=== PATIENT | male | born 1935 | race Caucasian/White ===

== ENCOUNTER → 2019-12-28 09:43 | Outpatient (BNVA) | payer MEDICARE, OTHER, SELFPAY | PROVIDERS: PCP Internal Medicine; Visit Provider Internal Medicine | DX: I48.0 Paroxysmal atrial fibrillation (principal); Z51.81 Encounter for therapeutic drug level monitoring; Z79.01 Long term (current) use of anticoagulants | CPT/HCPCS: 85610 ==

== ENCOUNTER → 2020-01-25 09:38 | Outpatient (BNVA) | payer MEDICARE, OTHER, SELFPAY | PROVIDERS: PCP Internal Medicine; Visit Provider Internal Medicine | DX: I48.0 Paroxysmal atrial fibrillation (principal); Z51.81 Encounter for therapeutic drug level monitoring; Z79.01 Long term (current) use of anticoagulants | CPT/HCPCS: 85610; 99211 ==

== ENCOUNTER → 2020-02-22 09:23 | Outpatient (BNVA) | payer MEDICARE, OTHER, SELFPAY | PROVIDERS: PCP Internal Medicine; Visit Provider Internal Medicine | DX: I48.0 Paroxysmal atrial fibrillation (principal); Z51.81 Encounter for therapeutic drug level monitoring; Z79.01 Long term (current) use of anticoagulants | CPT/HCPCS: 85610; 99211 ==

== ENCOUNTER 2020-03-15 11:47 | Outpatient (REF) | payer MEDICARE, OTHER, SELFPAY ==
[2020-03-15 12:39] LABS: MANUAL DIFF FLAG NO
[2020-03-15 12:41] LABS: Basophils Percent Auto 0.4 % (0-2); Eosinophils Absolute Auto 0.3 X10*3/uL (0.0-0.4); Eosinophils Percent Auto 3.1 % (0-4); Hematocrit 37.7 % (42-52); Hemoglobin 12.3 g/dl (14.0-18.0); Imm Gran Abs Auto 0.03 X10*3/uL (0.00-0.03); Imm Gran Pct Auto 0.3 % (0.0-0.4); Lymphocytes Absolute Auto 2.4 X10*3/uL (1.2-4.9); Lymphocytes Percent Auto 26.5 % (20-40); Mean Corpuscular HGB Conc 32.6 g/dl (31.0-36.0); Mean Corpuscular Hemoglobin 29.4 pg (27.0-33.0); Mean Corpuscular Volume 90.2 fL (80-98); Mean Platelet Volume 10.1 fL (9.4-12.4); Monocytes Absolute Auto 0.9 X10*3/uL (0.1-1.2); Monocytes Percent Auto 9.9 % (2-11); Neutrophils Absolute Auto 5.5 X10*3/uL (2.0-8.3); Neutrophils Percent Auto 59.8 % (45-73); Platelet Count 292 X10*3/uL (160-400); Red Blood Count 4.18 X10*6/uL (4.60-5.80); White Blood Count 9.2 X10*3/uL (4.8-10.8)
[2020-03-15 13:15] LABS: Alanine Aminotransferase 25 U/L (0-40); Albumin Level 3.5 g/dL (3.5-5.0); Alkaline Phosphatase 61 U/L (39-117); Anion Gap 12 (12-20); Aspartate Amino Transferase 24 U/L (5-37); Bilirubin Total 0.4 mg/dL (0.0-1.0); Blood Urea Nitrogen 31 mg/dL (9-16); Calcium 8.7 mg/dL (8.4-10.2); Carbon Dioxide 25 mmol/L (22-29); Chloride 105 mmol/L (96-108); Cholesterol 109 mg/dL; Estimated Glomerular Filt Rate 56; Glucose Fasting 138 mg/dL (60-99); HDL Cholesterol 36 mg/dL; LDL Cholesterol Calculated 53 mg/dl; Potassium 4.6 mmol/l (3.3-5.1); Sodium 137 mmol/L (135-145); Total Protein 6.1 g/dL (6.5-8.0); Triglycerides 103 mg/dL
[2020-03-15 13:28] LABS: Creatinine Urine 46.84 mg/dL; Microalbum/Creatinine Ratio Ur 1054.6 ug/mg cr; Thyroid Stimulating Hormone 1.93 uIU/mL (0.32-4.0)
[2020-03-15 13:48] LABS: Folate 7.9 ng/mL (> or = 4.0); Vitamin B12 370 pg/mL (200-900)
== END 2020-03-15 11:48 | disposition home or self-care (01) ==
LOC: HO.LAB 11:47
PROVIDERS: PCP Internal Medicine; Visit Provider Internal Medicine
DX: E11.65 Type 2 diabetes mellitus with hyperglycemia (principal); I48.0 Paroxysmal atrial fibrillation; J44.9 Chronic obstructive pulmonary disease, unspecified; E78.00 Pure hypercholesterolemia, unspecified; I25.10 Atherosclerotic heart disease of native coronary artery without angina pectoris
CPT/HCPCS: 36415; 80053; 80061; 82043; 82607; 82746; 84436; 84443; 85025

== ENCOUNTER → 2020-03-21 09:27 | Outpatient (BNVA) | payer MEDICARE, OTHER, SELFPAY | PROVIDERS: PCP Internal Medicine; Visit Provider Internal Medicine | DX: I48.0 Paroxysmal atrial fibrillation (principal); Z51.81 Encounter for therapeutic drug level monitoring; Z79.01 Long term (current) use of anticoagulants | CPT/HCPCS: 85610; 99211 ==

== ENCOUNTER → 2020-04-18 09:25 | Outpatient (BNVA) | payer MEDICARE, OTHER, SELFPAY | PROVIDERS: PCP Internal Medicine; Visit Provider Internal Medicine | DX: I48.0 Paroxysmal atrial fibrillation (principal); Z51.81 Encounter for therapeutic drug level monitoring; Z79.01 Long term (current) use of anticoagulants | CPT/HCPCS: 85610; 99211 ==

== ENCOUNTER → 2020-04-20 08:19 | Outpatient (REF) | payer MEDICARE, OTHER, SELFPAY ==
--- NOTE | 2020-04-20 08:30 | CA_ITS ---
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 The visually estimated ejection fraction is between 55-60%. - The basal inferior and basal inferolateral segments are hypokinetic. - There is mild aortic valve stenosis. Findings Left Ventricle Normal left ventricular cavity size. There is moderately increased left ventricular wall thickness. The left ventricular systolic function is normal. The visually estimated ejection fraction is between 55-60%. There is no evidence of regional wall motion abnormalities. E/E prime ratio is between 8 and 15 consistent with indeterminate filling pressures. Evidence suggests grade I (mild) diastolic dysfunction. Wall Motion Rest Echo Findings The basal inferior and basal inferolateral segments are hypokinetic. Right Ventricle Normal right ventricular cavity size and systolic function. Atria Both atria are normal in size. Aortic Valve The aortic valve was not well visualized. There is mild aortic valve stenosis. The peak aortic velocity is 2.07 m/s with a calculated peak gradient of 17 mmHg. The mean gradient is 10 mmHg. The aortic valve area is 1.44 cm2. There is no aortic valve regurgitation. Mitral Valve The mitral valve appears normal. There is mild mitral annular calcification. There is trace mitral valve regurgitation. There is no mitral valve stenosis. Pulmonic Valve The pulmonic valve was not well visualized. Tricuspid Valve There is trace tricuspid valve regurgitation. The pulmonary artery systolic pressure is normal. Great Vessels The aorta was not well visualized. Venous The inferior vena cava is normal in size and collapses greater than 50% with inspiration. Pericardium/Pleural There is no evidence of pericardial effusion. Prior Study Comparison Changes noted compared to prior study dated: 05/06/2018. See comments on wall motion. Measurements 2D Linear Measurements IVSd: 1.30 0.6-0.9/0.6-1.0 cm LVIDd: 4.32 3.9-5.3/4.2-5.9 cm LVIDd Index: 2.03 2.4-3.2/2.2-3.1 cm/m2 LVIDs: 3.07 2.0-3.6 cm LVPWd: 1.37 0.7-1.1 cm Ao Root: 3.30 2.1-3.5 cm LA Diam: 4.10 2.7-3.8/3.0-4.0 cm LAIDs Index: 1.92 1.5-2.3 cm/m2 LV Mass: 271.35 67-162/88-224 g LV Mass Index: 127.39 43-95/49-115 g/m2 LVOT Diam: 2.00 3.0+(-)1.3 cm 2D Systolic Function EF 4C: 60.00 >55% EF 2C: 59.90 >55% EF BiP: 60.70 >55% Mitral Valve MV Pk E: 0.68 MV PK A: 1.14 MV Decel Time: 190.00 E/A: 0.60 E'Lateral: 7.45 E'Medial: 5.03 E/E' Med: 13.50 E/E' Lat: 9.10 PHT: 56.00 MVA PHT: 3.93 Decel Dickey: 3.57 Aortic Valve AoV Pk Sudhir: 2.07 AoV Mn Sudhir: 1.46 AoV VTI: 0.54 AoV Pk Grad: 17.00 Aov Mn Grad: 10.00 GILMAR Cont.VTI: 1.44 LVOT LVOT Pk Sudhir: 0.80 LVOT Mn Sudhir: 0.58 LVOT VTI: 0.25 LVOT Pk Grad: 3.00 LVOT Mn Grad: 2.00 LVOT Diam: 2.00 LVOT Area: 3.14 Diastolic Function MV Pk E: 0.68 MV Pk A: 1.14 E/A: 0.60 E'Medial: 5.03 E/E' Med: 13.50 E' Laterial: 7.45 E/E' Lat: 9.10 Tricuspid Valve TR Pk Sudhir: 1.96 TR Pk Grad: 15.00 RA Press: 3.00 RVSP: 18.00 Great Vessels Aorta Ao Root-2D: 3.30 2.0-3.7 cm Pulmonary Valve PV Pk Sudhir: 1.45 Peak PV Grad: 8.00 Updated in Other Vendor System with Status of Final Daren Kim MD electronically signed on 04/22/2020 1:44:36 PM with status of Final
== END ==
LOC: HO.CARD 08:19
PROVIDERS: Visit Provider Internal Medicine Cardiovascular Disease
DX: I25.10 Atherosclerotic heart disease of native coronary artery without angina pectoris (principal); I48.0 Paroxysmal atrial fibrillation; I10 Essential (primary) hypertension; Z95.5 Presence of coronary angioplasty implant and graft
CPT/HCPCS: 93306

== ENCOUNTER → 2020-04-25 08:48 | Outpatient (BNVA) | payer MEDICARE, OTHER, SELFPAY | PROVIDERS: PCP Internal Medicine; Visit Provider Internal Medicine | DX: I48.0 Paroxysmal atrial fibrillation (principal); Z51.81 Encounter for therapeutic drug level monitoring; Z79.01 Long term (current) use of anticoagulants | CPT/HCPCS: 85610; 99211 ==

== ENCOUNTER → 2020-05-03 09:39 | Outpatient (BNVA) | payer MEDICARE, OTHER, SELFPAY | PROVIDERS: PCP Internal Medicine; Visit Provider Internal Medicine Cardiovascular Disease | DX: I48.0 Paroxysmal atrial fibrillation (principal); I25.10 Atherosclerotic heart disease of native coronary artery without angina pectoris; I35.0 Nonrheumatic aortic (valve) stenosis | CPT/HCPCS: 93005; 99212 ==

== ENCOUNTER → 2020-05-23 08:58 | Outpatient (BNVA) | payer MEDICARE, OTHER, SELFPAY | PROVIDERS: PCP Internal Medicine; Visit Provider Internal Medicine | DX: I48.0 Paroxysmal atrial fibrillation (principal); Z51.81 Encounter for therapeutic drug level monitoring; Z79.01 Long term (current) use of anticoagulants | CPT/HCPCS: 85610; 99211 ==

== ENCOUNTER 2020-06-20 09:00 | Outpatient (REF) | payer MEDICARE, OTHER, SELFPAY ==
[2020-06-20 10:39] LABS: MANUAL DIFF FLAG NO
[2020-06-20 10:55] LABS: Basophils Absolute Auto 0.1 X10*3/uL (0.0-0.2); Basophils Percent Auto 0.5 % (0-2); Eosinophils Absolute Auto 0.3 X10*3/uL (0.0-0.4); Eosinophils Percent Auto 2.6 % (0-4); Hematocrit 38.3 % (42-52); Hemoglobin 12.5 g/dl (14.0-18.0); Imm Gran Abs Auto 0.04 X10*3/uL (0.00-0.03); Imm Gran Pct Auto 0.4 % (0.0-0.4); Immature Retic Fraction 8.9 % (2.3-13.4); Lymphocytes Percent Auto 28.6 % (20-40); Mean Corpuscular HGB Conc 32.6 g/dl (31.0-36.0); Mean Corpuscular Hemoglobin 29.3 pg (27.0-33.0); Mean Corpuscular Volume 89.7 fL (80-98); Mean Platelet Volume 10.8 fL (9.4-12.4); Monocytes Absolute Auto 1.1 X10*3/uL (0.1-1.2); Monocytes Percent Auto 10.5 % (2-11); Neutrophils Absolute Auto 5.9 X10*3/uL (2.0-8.3); Neutrophils Percent Auto 57.4 % (45-73); Platelet Count 280 X10*3/uL (160-400); Red Blood Count 4.27 X10*6/uL (4.60-5.80); Red Cell Distribution Width 13.7 % (11.0-16.0); Retic HGB Equivalent 33.2 pg (30.0-35.0); Reticulocyte Percent 1.5 % (0.5-1.8); Reticulocytes Absolute 0.066 X10*6/uL (0.026-0.095); White Blood Count 10.3 X10*3/uL (4.8-10.8)
[2020-06-20 11:04] LABS: Estimated Average Glucose 137 mg/dL; Hemoglobin A1c % 6.4 %
[2020-06-20 11:07] LABS: Iron 76 mcg/dL (45-160); Percent Iron Saturation 27 % (15-50); Total Iron Binding Capacity 283 mcg/dL (228-428); Unsaturated Iron Binding 207 ug/dL
[2020-06-20 11:17] LABS: Ferritin 112 ng/mL (20-250)
[2020-06-21 04:18] LABS: Folate 4.6 ng/mL (> or = 4.0); Vitamin B12 336 pg/mL (200-900)
== END 2020-06-20 09:01 | disposition home or self-care (01) ==
LOC: HO.LAB 09:00
PROVIDERS: PCP Internal Medicine; Visit Provider Internal Medicine
DX: I48.0 Paroxysmal atrial fibrillation (principal); D64.9 Anemia, unspecified; E11.65 Type 2 diabetes mellitus with hyperglycemia; Z51.81 Encounter for therapeutic drug level monitoring; Z79.01 Long term (current) use of anticoagulants
CPT/HCPCS: 36415; 82607; 82728; 82746; 83036; 83540; 85025; 85045; 85610; 99211

== ENCOUNTER → 2020-07-18 09:34 | Outpatient (BNVA) | payer MEDICARE, OTHER, SELFPAY | PROVIDERS: PCP Internal Medicine; Visit Provider Internal Medicine | DX: I48.0 Paroxysmal atrial fibrillation (principal); Z51.81 Encounter for therapeutic drug level monitoring; Z79.01 Long term (current) use of anticoagulants | CPT/HCPCS: 85610; 99211 ==

== ENCOUNTER → 2020-08-15 09:31 | Outpatient (BNVA) | payer MEDICARE, OTHER, SELFPAY | PROVIDERS: PCP Internal Medicine; Visit Provider Internal Medicine | DX: I48.0 Paroxysmal atrial fibrillation (principal); Z51.81 Encounter for therapeutic drug level monitoring; Z79.01 Long term (current) use of anticoagulants | CPT/HCPCS: 85610; 99211 ==

== ENCOUNTER → 2020-09-12 09:18 | Outpatient (BNVA) | payer MEDICARE, OTHER, SELFPAY | PROVIDERS: PCP Internal Medicine; Visit Provider Internal Medicine | DX: I48.0 Paroxysmal atrial fibrillation (principal); Z51.81 Encounter for therapeutic drug level monitoring; Z79.01 Long term (current) use of anticoagulants | CPT/HCPCS: 85610; 99211 ==

== ENCOUNTER → 2020-10-10 09:39 | Outpatient (BNVA) | payer MEDICARE, OTHER, SELFPAY | PROVIDERS: PCP Internal Medicine; Visit Provider Internal Medicine | DX: I48.0 Paroxysmal atrial fibrillation (principal); Z51.81 Encounter for therapeutic drug level monitoring; Z79.01 Long term (current) use of anticoagulants | CPT/HCPCS: 85610; 99211 ==

== ENCOUNTER → 2020-10-26 08:41 | Outpatient (BNVA) | payer MEDICARE, OTHER, SELFPAY | PROVIDERS: PCP Internal Medicine; Referring Provider Internal Medicine; Visit Provider Internal Medicine Cardiovascular Disease | DX: I35.0 Nonrheumatic aortic (valve) stenosis (principal); I48.0 Paroxysmal atrial fibrillation; I25.10 Atherosclerotic heart disease of native coronary artery without angina pectoris; I65.22 Occlusion and stenosis of left carotid artery; I10 Essential (primary) hypertension; E78.00 Pure hypercholesterolemia, unspecified; R06.02 Shortness of breath; J44.9 Chronic obstructive pulmonary disease, unspecified; E11.65 Type 2 diabetes mellitus with hyperglycemia; E11.21 Type 2 diabetes mellitus with diabetic nephropathy; Z86.73 Personal history of transient ischemic attack (TIA), and cerebral infarction without residual deficits; Z89.611 Acquired absence of right leg above knee | CPT/HCPCS: 99212 ==

== ENCOUNTER → 2020-11-07 09:41 | Outpatient (BNVA) | payer MEDICARE, OTHER, SELFPAY | PROVIDERS: PCP Internal Medicine; Visit Provider Internal Medicine | DX: I48.0 Paroxysmal atrial fibrillation (principal); Z51.81 Encounter for therapeutic drug level monitoring; Z79.01 Long term (current) use of anticoagulants | CPT/HCPCS: 85610; 99211 ==

== ENCOUNTER → 2020-11-21 09:14 | Outpatient (BNVA) | payer MEDICARE, OTHER, SELFPAY | PROVIDERS: PCP Internal Medicine; Visit Provider Internal Medicine | DX: I48.0 Paroxysmal atrial fibrillation (principal); Z51.81 Encounter for therapeutic drug level monitoring; Z79.01 Long term (current) use of anticoagulants | CPT/HCPCS: 85610; 99211 ==

== ENCOUNTER → 2020-12-19 09:04 | Outpatient (BNVA) | payer MEDICARE, OTHER, SELFPAY | PROVIDERS: PCP Internal Medicine; Visit Provider Internal Medicine | DX: I48.0 Paroxysmal atrial fibrillation (principal); Z51.81 Encounter for therapeutic drug level monitoring; Z79.01 Long term (current) use of anticoagulants | CPT/HCPCS: 85610; 99211 ==

== ENCOUNTER → 2021-01-16 09:02 | Outpatient (BNVA) | payer MEDICARE, OTHER, SELFPAY | PROVIDERS: PCP Internal Medicine; Visit Provider Internal Medicine | DX: I48.0 Paroxysmal atrial fibrillation (principal); Z51.81 Encounter for therapeutic drug level monitoring; Z79.01 Long term (current) use of anticoagulants | CPT/HCPCS: 85610; 99211 ==

== ENCOUNTER → 2021-02-13 09:21 | Outpatient (BNVA) | payer MEDICARE, OTHER, SELFPAY | PROVIDERS: PCP Internal Medicine; Visit Provider Internal Medicine | DX: I48.0 Paroxysmal atrial fibrillation (principal); Z51.81 Encounter for therapeutic drug level monitoring; Z79.01 Long term (current) use of anticoagulants | CPT/HCPCS: 85610; 99211 ==

== ENCOUNTER → 2021-02-19 15:31 | Outpatient (BNVA) | payer MEDICARE, OTHER, SELFPAY | PROVIDERS: PCP Internal Medicine; Visit Provider Urology | DX: R39.15 Urgency of urination (principal); R35.1 Nocturia; N32.0 Bladder-neck obstruction | CPT/HCPCS: 51798; 99202 ==

== ENCOUNTER → 2021-03-13 09:22 | Outpatient (BNVA) | payer MEDICARE, OTHER, SELFPAY | PROVIDERS: PCP Internal Medicine; Visit Provider Internal Medicine | DX: I48.0 Paroxysmal atrial fibrillation (principal); Z51.81 Encounter for therapeutic drug level monitoring; Z79.01 Long term (current) use of anticoagulants | CPT/HCPCS: 85610; 99211 ==

== ENCOUNTER 2021-03-19 08:26 | Outpatient (REF) | payer MEDICARE, OTHER, SELFPAY ==
[2021-03-19 08:59] LABS: MANUAL DIFF FLAG NO
[2021-03-19 09:21] LABS: Basophils Percent Auto 0.3 % (0-2); Eosinophils Absolute Auto 0.3 X10*3/uL (0.0-0.4); Hematocrit 37.6 % (42.0-52.0); Hemoglobin 12.4 g/dl (14.0-18.0); Imm Gran Abs Auto 0.03 X10*3/uL (0.00-0.03); Imm Gran Pct Auto 0.3 % (0.0-0.4); Immature Retic Fraction 10.8 % (2.3-13.4); Lymphocytes Percent Auto 29.9 % (20-40); Mean Corpuscular Hemoglobin 29.3 pg (27.0-33.0); Mean Corpuscular Volume 88.9 fL (80.0-98.0); Mean Platelet Volume 10.4 fL (9.4-12.4); Monocytes Absolute Auto 0.9 X10*3/uL (0.1-1.2); Monocytes Percent Auto 9.3 % (2-11); Neutrophils Absolute Auto 5.7 x10*3/uL (2.0-8.3); Neutrophils Percent Auto 57.2 % (45-73); Platelet Count 274 X10*3/uL (160-400); Red Blood Count 4.23 X10*6/uL (4.60-5.80); Red Cell Distribution Width 13.4 % (11.0-16.0); Retic HGB Equivalent 33.6 pg (30.0-35.0); Reticulocyte Percent 1.5 % (0.5-1.8); Reticulocytes Absolute 0.064 X10*6/uL (0.026-0.095); White Blood Count 9.9 X10*3/uL (4.8-10.8)
[2021-03-19 09:37] LABS: Estimated Average Glucose 157 mg/dL; Hemoglobin A1c % 7.1 %
[2021-03-19 09:45] LABS: B Type Natriuretic Peptide 26 pg/mL (<100)
[2021-03-19 09:48] LABS: Alanine Aminotransferase 23 U/L (0-40); Albumin Level 3.5 g/dL (3.5-5.0); Alkaline Phosphatase 68 U/L (39-117); Anion Gap 14 (12-20); Aspartate Amino Transferase 23 U/L (5-37); Bilirubin Total 0.5 mg/dL (0.0-1.0); Blood Urea Nitrogen 45 mg/dL (9-16); Calcium 9.1 mg/dL (8.4-10.2); Carbon Dioxide 22 mmol/L (22-29); Chloride 108 mmol/L (96-108); Cholesterol 107 mg/dL; Estimated Glomerular Filt Rate 43; Glucose Random 157 mg/dL (60-115); HDL Cholesterol 36 mg/dL; Iron 67 mcg/dL (45-160); LDL Cholesterol Calculated 49 mg/dl; Percent Iron Saturation 24 % (15-50); Potassium 4.3 mmol/L (3.3-5.1); Sodium 140 mmol/L (135-145); Total Iron Binding Capacity 282 mcg/dL (228-428); Total Protein 6.1 g/dL (6.5-8.0); Triglycerides 114 mg/dL; Unsaturated Iron Binding 215 ug/dL
[2021-03-19 09:53] LABS: Creatinine Urine 38.65 mg/dL
[2021-03-19 10:10] LABS: Ferritin 145 ng/mL (20-250); Free T4 (Free Thyroxine) 1.35 ng/dL (0.71-1.85); Thyroid Stimulating Hormone 2.74 uIU/mL (0.32-4.0)
[2021-03-19 10:10] LABS: Microalbum/Creatinine Ratio Ur 1632.6 ug/mg cr
[2021-03-19 10:21] LABS: Vitamin B12 403 pg/mL (200-900)
== END 2021-03-19 08:27 | disposition home or self-care (01) ==
LOC: HO.LAB 08:26
PROVIDERS: PCP Internal Medicine; Visit Provider Internal Medicine
DX: E11.65 Type 2 diabetes mellitus with hyperglycemia (principal); E78.00 Pure hypercholesterolemia, unspecified; I25.10 Atherosclerotic heart disease of native coronary artery without angina pectoris; I10 Essential (primary) hypertension
CPT/HCPCS: 36415; 80053; 80061; 82043; 82607; 82728; 82746; 83036; 83540; 83880; 84439; 84443; 85025; 85045

== ENCOUNTER 2021-03-26 13:48 | Outpatient (REF) | payer MEDICARE, OTHER, SELFPAY ==
[2021-03-26 14:35] LABS: Appearance Urine CLEAR; Color Urine YELLOW; Glucose Urine UA 100 MG/DL (NEG); Leukocyte Esterase Urine NEG (NEG); Nitrite Urine NEG (NEG); PH 5.5 (5.0-8.0); Specific Gravity - Urine 1.015 (1.005-1.025); Urine Blood TRACE (NEG); Urine Ketones NEG (NEG); Urine Protein 2+ MG/DL (NEG-TRACE)
[2021-03-26 14:44] LABS: Amorphous Sediment Urine TRACE /LPF; RBC Urine 0 /HPF (0); WBC Urine 0 /HPF (0-4)
[2021-03-26 15:02] LABS: Anion Gap 15 (12-20); Blood Urea Nitrogen 30 mg/dL (9-16); Calcium 8.9 mg/dL (8.4-10.2); Carbon Dioxide 23 mmol/L (22-29); Chloride 102 mmol/L (96-108); Estimated Glomerular Filt Rate 53; Glucose Random 200 mg/dL (60-115); Potassium 4.5 mmol/L (3.3-5.1); Sodium 135 mmol/L (135-145)
[2021-03-26 15:07] LABS: Creatinine Urine 38.44 mg/dL
== END 2021-03-26 13:49 | disposition home or self-care (01) ==
LOC: HO.LAB 13:48
PROVIDERS: PCP Internal Medicine; Visit Provider Internal Medicine
DX: E11.65 Type 2 diabetes mellitus with hyperglycemia (principal); N28.9 Disorder of kidney and ureter, unspecified
CPT/HCPCS: 36415; 80048; 81001

== ENCOUNTER → 2021-04-10 09:23 | Outpatient (BNVA) | payer MEDICARE, OTHER, SELFPAY | PROVIDERS: PCP Internal Medicine; Visit Provider Internal Medicine | DX: I48.0 Paroxysmal atrial fibrillation (principal); Z51.81 Encounter for therapeutic drug level monitoring; Z79.01 Long term (current) use of anticoagulants | CPT/HCPCS: 85610; 99211 ==

== ENCOUNTER → 2021-04-23 12:56 | Outpatient (REF) | payer MEDICARE, OTHER, SELFPAY ==
--- NOTE | 2021-04-23 13:00 | CA_ITS ---
Transthoracic Echocardiogram Patient (Last, First, Middle): Florentino Bean R Gender: Male Date of : 1935 Age: 85 Procedure Date: 04/23/2021 Procedure Type: Transthoracic Echocardiogram Location: OP Height: 182.88 cm Weight: 90.72 kg BSA: 2.13 m2 Heart Rate: bpm BP: 134 / 80 mmHg Spotter: Referring MD: Forrest Chaudhari MD Symptoms: I35.0 - Nonrheumatic aortic (valve) stenosis Study Quality: Fair ECG Rhythm: Sinus Conclusions: - The left ventricular systolic function is normal. The calculated ejection fraction is 61% by biplane method. - The basal inferior and basal inferolateral segments are hypokinetic. - There is moderate aortic valve stenosis. Findings Left Ventricle Normal left ventricular cavity size. There is mildly increased left ventricular wall thickness. The left ventricular systolic function is normal. The calculated ejection fraction is 61% by biplane method. There is no evidence of regional wall motion abnormalities. E/E prime ratio is between 8 and 15 consistent with indeterminate filling pressures. Evidence suggests grade I (mild) diastolic dysfunction. Wall Motion Rest Echo Findings The basal inferior and basal inferolateral segments are hypokinetic. Right Ventricle Normal right ventricular cavity size and systolic function. Atria Both atria are normal in size. Aortic Valve The aortic valve was not well visualized. There is moderate calcification of the aortic valve. There is moderate aortic valve stenosis. The mean gradient is 10 mmHg. The aortic valve area is 1.20 cm2. There is no aortic valve regurgitation. Dimensionless index 0.3. Stroke volume index 30ml. Mitral Valve The mitral valve appears normal. There is no mitral valve regurgitation. There is no mitral valve stenosis. Pulmonic Valve The pulmonic valve is likely normal. Tricuspid Valve There is trace tricuspid valve regurgitation. The pulmonary artery systolic pressure is normal. Great Vessels The aorta was not well visualized. The aortic annulus is normal in size. Venous The inferior vena cava is normal in size and collapses greater than 50% with inspiration. Pericardium/Pleural There is no evidence of pericardial effusion. Prior Study Comparison Changes noted compared to prior study dated: 04/20/2020. Slight progression of aortic stenosis. Measurements 2D Linear Measurements IVSd: 1.26 0.6-0.9/0.6-1.0 cm LVIDd: 5.52 3.9-5.3/4.2-5.9 cm LVIDd Index: 2.59 2.4-3.2/2.2-3.1 cm/m2 LVIDs: 3.77 2.0-3.6 cm LVPWd: 1.24 0.7-1.1 cm Ao Root: 3.00 2.1-3.5 cm LA Diam: 4.40 2.7-3.8/3.0-4.0 cm LAIDs Index: 2.07 1.5-2.3 cm/m2 LV Mass: 361.56 67-162/88-224 g LV Mass Index: 169.75 43-95/49-115 g/m2 LVOT Diam: 2.00 3.0+(-)1.3 cm 2D Systolic Function EF 4C: 67.90 >55% EF 2C: 51.50 >55% EF BiP: 61.30 >55% Mitral Valve MV Pk E: 0.59 MV PK A: 0.85 MV Decel Time: 243.00 E/A: 0.70 E'Lateral: 5.98 E'Medial: 4.57 E/E' Med: 13.00 E/E' Lat: 9.90 PHT: 71.00 MVA PHT: 3.10 Decel [place]ado: 2.46 Aortic Valve AoV Pk Sudhir: 2.35 AoV Mn Sudhir: 1.44 AoV VTI: 0.50 AoV Pk Grad: 22.00 Aov Mn Grad: 10.00 GILMAR Cont.VTI: 1.20 LVOT LVOT Pk Sudhir: 0.72 LVOT Mn Sudhir: 0.48 LVOT VTI: 0.19 LVOT Pk Grad: 2.00 LVOT Mn Grad: 1.00 LVOT Diam: 2.00 LVOT Area: 3.14 Diastolic Function MV Pk E: 0.59 MV Pk A: 0.85 E/A: 0.70 E'Medial: 4.57 E/E' Med: 13.00 E' Laterial: 5.98 E/E' Lat: 9.90 Right Ventricle TAPSE (mm): 30.00 TVS' Sudhir: 12.00 Tricuspid Valve TR Pk Sudhir: 1.57 TR Pk Grad: 10.00 Great Vessels Aorta Ao Root-2D: 3.00 2.0-3.7 cm Pulmonary Valve PV Pk Sudhir: 1.48 Peak PV Grad: 9.00 Updated in Other Vendor System with Status of Final Daren Kim MD electronically signed on 04/24/2021 12:01:56 PM with status of Final
== END ==
LOC: HO.CARD 12:56
PROVIDERS: PCP Internal Medicine; Visit Provider Internal Medicine Cardiovascular Disease
DX: I35.0 Nonrheumatic aortic (valve) stenosis (principal)
CPT/HCPCS: 93306

== ENCOUNTER → 2021-04-25 08:44 | Outpatient (BNVA) | payer MEDICARE, OTHER, SELFPAY | PROVIDERS: PCP Internal Medicine; Referring Provider Internal Medicine; Visit Provider Internal Medicine Cardiovascular Disease | DX: I48.0 Paroxysmal atrial fibrillation (principal); I25.10 Atherosclerotic heart disease of native coronary artery without angina pectoris; I35.0 Nonrheumatic aortic (valve) stenosis | CPT/HCPCS: 93005; 99212 ==

== ENCOUNTER → 2021-05-03 14:29 | Outpatient (BNVA) | payer MEDICARE, OTHER, SELFPAY | PROVIDERS: PCP Internal Medicine; Visit Provider Urology | DX: R35.1 Nocturia (principal); N32.0 Bladder-neck obstruction | CPT/HCPCS: Q3014 ==

== ENCOUNTER → 2021-05-08 09:28 | Outpatient (BNVA) | payer MEDICARE, OTHER, SELFPAY | PROVIDERS: PCP Internal Medicine; Visit Provider Internal Medicine | DX: I48.0 Paroxysmal atrial fibrillation (principal); Z51.81 Encounter for therapeutic drug level monitoring; Z79.01 Long term (current) use of anticoagulants | CPT/HCPCS: 85610; 99211 ==

== ENCOUNTER → 2021-06-12 09:17 | Outpatient (BNVA) | payer MEDICARE, OTHER, SELFPAY | PROVIDERS: PCP Internal Medicine; Visit Provider Internal Medicine | DX: I48.0 Paroxysmal atrial fibrillation (principal); Z51.81 Encounter for therapeutic drug level monitoring; Z79.01 Long term (current) use of anticoagulants | CPT/HCPCS: 85610; 99211 ==

== ENCOUNTER → 2021-07-10 09:07 | Outpatient (BNVA) | payer MEDICARE, OTHER, SELFPAY | PROVIDERS: PCP Internal Medicine; Visit Provider Internal Medicine | DX: I48.0 Paroxysmal atrial fibrillation (principal); Z79.01 Long term (current) use of anticoagulants; Z51.81 Encounter for therapeutic drug level monitoring | CPT/HCPCS: 85610; 99211 ==

== ENCOUNTER → 2021-08-07 09:04 | Outpatient (BNVA) | payer MEDICARE, OTHER, SELFPAY | PROVIDERS: PCP Internal Medicine; Visit Provider Internal Medicine | DX: I48.0 Paroxysmal atrial fibrillation (principal); Z79.01 Long term (current) use of anticoagulants; Z51.81 Encounter for therapeutic drug level monitoring | CPT/HCPCS: 85610; 99211 ==

== ENCOUNTER → 2021-09-04 08:58 | Outpatient (BNVA) | payer MEDICARE, OTHER, SELFPAY | PROVIDERS: PCP Internal Medicine; Visit Provider Internal Medicine | DX: I48.0 Paroxysmal atrial fibrillation (principal); Z79.01 Long term (current) use of anticoagulants; Z51.81 Encounter for therapeutic drug level monitoring | CPT/HCPCS: 85610; 99211 ==

== ENCOUNTER → 2021-10-02 09:15 | Outpatient (BNVA) | payer MEDICARE, OTHER, SELFPAY | PROVIDERS: PCP Internal Medicine; Visit Provider Internal Medicine | DX: I48.0 Paroxysmal atrial fibrillation (principal); Z51.81 Encounter for therapeutic drug level monitoring; Z79.01 Long term (current) use of anticoagulants | CPT/HCPCS: 85610; 99211 ==

== ENCOUNTER → 2021-10-09 09:29 | Outpatient (BNVA) | payer MEDICARE, OTHER, SELFPAY | PROVIDERS: PCP Internal Medicine; Visit Provider Internal Medicine Cardiovascular Disease | DX: I25.10 Atherosclerotic heart disease of native coronary artery without angina pectoris (principal); I48.0 Paroxysmal atrial fibrillation; I35.0 Nonrheumatic aortic (valve) stenosis | CPT/HCPCS: 99212 ==

== ENCOUNTER → 2021-10-30 08:59 | Outpatient (BNVA) | payer MEDICARE, OTHER, SELFPAY | PROVIDERS: PCP Internal Medicine; Visit Provider Internal Medicine | DX: I48.0 Paroxysmal atrial fibrillation (principal); Z79.01 Long term (current) use of anticoagulants; Z51.81 Encounter for therapeutic drug level monitoring | CPT/HCPCS: 85610; 99211 ==

== ENCOUNTER → 2021-11-01 09:58 | Outpatient (BNVA) | payer MEDICARE, OTHER, SELFPAY | PROVIDERS: PCP Internal Medicine; Visit Provider Urology | DX: N40.1 Benign prostatic hyperplasia with lower urinary tract symptoms (principal); R39.15 Urgency of urination; N13.8 Other obstructive and reflux uropathy; R35.1 Nocturia | CPT/HCPCS: 51798; 99212 ==

== ENCOUNTER → 2021-11-27 08:58 | Outpatient (BNVA) | payer MEDICARE, OTHER, SELFPAY | PROVIDERS: PCP Internal Medicine; Visit Provider Internal Medicine | DX: I48.0 Paroxysmal atrial fibrillation (principal); Z51.81 Encounter for therapeutic drug level monitoring; Z79.01 Long term (current) use of anticoagulants | CPT/HCPCS: 85610; 99211 ==

== ENCOUNTER → 2021-12-25 09:00 | Outpatient (BNVA) | payer MEDICARE, OTHER, SELFPAY | PROVIDERS: PCP Internal Medicine; Visit Provider Internal Medicine | DX: I48.0 Paroxysmal atrial fibrillation (principal); Z79.01 Long term (current) use of anticoagulants; Z51.81 Encounter for therapeutic drug level monitoring | CPT/HCPCS: 85610; 99211 ==

== ENCOUNTER → 2022-01-22 09:01 | Outpatient (BNVA) | payer MEDICARE, OTHER, SELFPAY | PROVIDERS: PCP Internal Medicine; Visit Provider Internal Medicine | DX: I48.0 Paroxysmal atrial fibrillation (principal); Z79.01 Long term (current) use of anticoagulants; Z51.81 Encounter for therapeutic drug level monitoring | CPT/HCPCS: 85610; 99211 ==

== ENCOUNTER → 2022-02-19 09:02 | Outpatient (BNVA) | payer MEDICARE, OTHER, SELFPAY | PROVIDERS: PCP Internal Medicine; Visit Provider Internal Medicine | DX: I48.0 Paroxysmal atrial fibrillation (principal); Z79.01 Long term (current) use of anticoagulants; Z51.81 Encounter for therapeutic drug level monitoring | CPT/HCPCS: 85610; 99211 ==

== ENCOUNTER → 2022-03-19 09:09 | Outpatient (BNVA) | payer MEDICARE, OTHER, SELFPAY | PROVIDERS: PCP Internal Medicine; Visit Provider Internal Medicine | DX: I48.0 Paroxysmal atrial fibrillation (principal); Z79.01 Long term (current) use of anticoagulants; Z51.81 Encounter for therapeutic drug level monitoring | CPT/HCPCS: 85610; 99211 ==

== ENCOUNTER → 2022-03-21 12:52 | Outpatient (REF) | payer MEDICARE, OTHER, SELFPAY ==
--- NOTE | 2022-03-21 12:57 | CA_ITS ---
Transthoracic Echocardiogram Patient (Last, First, Middle): Florentino Bean R Gender: Male Date of : 1935 Age: 86 Procedure Date: 03/21/2022 Procedure Type: Transthoracic Echocardiogram Location: OP Height: 177.8 cm Weight: 88.45 kg BSA: 2.06 m2 Heart Rate: 60 bpm BP: 148 / 78 mmHg Edger Hand: KENIA Referring MD: Forrest Chaudhari MD Symptoms: I35.0 - Nonrheumatic aortic (valve) stenosis Study Quality: Fair due to positioning difficulty ECG Rhythm: Sinus Conclusions: - The left ventricular systolic function is low normal. The calculated ejection fraction is 54% by biplane method. - The basal inferior and basal inferolateral segments are akinetic. - There is moderate to severe aortic valve stenosis. Findings Left Ventricle Mildly increased left ventricular cavity size. There is normal left ventricular wall thickness. The left ventricular systolic function is low normal. The calculated ejection fraction is 54% by biplane method. There is evidence of regional wall motion abnormalities. Wall Motion Rest Echo Findings The basal inferior and basal inferolateral segments are akinetic. Right Ventricle Normal right ventricular cavity size and systolic function. Atria Both atria are normal in size. Aortic Valve There is moderate calcification of the aortic valve. There is moderate to severe aortic valve stenosis. The peak aortic velocity is 2.64 m/s with a calculated peak gradient of 28 mmHg. The mean gradient is 17 mmHg. The aortic valve area is 1.00 cm2. There is no aortic valve regurgitation. Stroke volume index 35ml/m2. Dimensionless index 0.27. Mitral Valve The mitral valve appears normal. There is mild mitral annular calcification. There is no mitral valve stenosis. Pulmonic Valve The pulmonic valve was not well visualized. Tricuspid Valve There is trace tricuspid valve regurgitation. Tricuspid regurgitation envelope is inadequate for calculation of right ventricular systolic pressure. Great Vessels The aorta was not well visualized. The aortic annulus is normal in size. Venous The inferior vena cava is normal in size and collapses less than 50% with inspiration. Pericardium/Pleural There is no evidence of pericardial effusion. Prior Study Comparison Changes noted compared to prior study dated: 04/23/2021. Slight progression of aortic stenosis severity. Basal inferior/inferolateral degroot appear akinetic. Measurements 2D Linear Measurements IVSd: 0.89 0.6-0.9/0.6-1.0 cm LVIDd: 5.63 3.9-5.3/4.2-5.9 cm LVIDd Index: 2.73 2.4-3.2/2.2-3.1 cm/m2 LVIDs: 4.70 2.0-3.6 cm LVPWd: 0.66 0.7-1.1 cm LA Diam: 4.40 2.7-3.8/3.0-4.0 cm LAIDs Index: 2.14 1.5-2.3 cm/m2 LV Mass: 199.04 67-162/88-224 g LV Mass Index: 96.62 43-95/49-115 g/m2 LVOT Diam: 2.20 3.0+(-)1.3 cm 2D Systolic Function EF 4C: 56.00 >55% EF 2C: 50.80 >55% EF BiP: 53.50 >55% Mitral Valve MV Pk E: 0.62 MV PK A: 0.91 MV Decel Time: 344.00 E/A: 0.70 E'Lateral: 8.92 E'Medial: 6.74 E/E' Med: 9.10 E/E' Lat: 6.90 PHT: 101.00 MVA PHT: 2.18 Decel Meeker: 1.79 Aortic Valve AoV Pk Sudhir: 2.64 AoV Mn Sudhir: 1.96 AoV VTI: 0.72 AoV Pk Grad: 28.00 Aov Mn Grad: 17.00 GILMAR Cont.VTI: 1.00 LVOT LVOT Pk Sudhir: 0.73 LVOT Mn Sudhir: 0.52 LVOT VTI: 0.19 LVOT Pk Grad: 2.00 LVOT Mn Grad: 1.00 LVOT Diam: 2.20 LVOT Area: 3.80 Diastolic Function MV Pk E: 0.62 MV Pk A: 0.91 E/A: 0.70 E'Medial: 6.74 E/E' Med: 9.10 E' Laterial: 8.92 E/E' Lat: 6.90 Right Ventricle TAPSE (mm): 21.40 TVS' Sudhir: 10.10 Tricuspid Valve RA Press: 8.00 Great Vessels Aorta Sinus of Valsalva: 3.30 2.0-3.5 cm Updated in Other Vendor System with Status of Final Daren Kim MD electronically signed on 03/23/2022 12:57:37 PM with status of Final
== END ==
LOC: HO.CARD 12:52
PROVIDERS: Visit Provider Internal Medicine Cardiovascular Disease
DX: I25.10 Atherosclerotic heart disease of native coronary artery without angina pectoris (principal); I35.0 Nonrheumatic aortic (valve) stenosis; I48.0 Paroxysmal atrial fibrillation
CPT/HCPCS: 93306

== ENCOUNTER → 2022-04-15 12:44 | Outpatient (BNVA) | payer MEDICARE, OTHER, SELFPAY | PROVIDERS: PCP Internal Medicine; Referring Provider Internal Medicine; Visit Provider Internal Medicine Cardiovascular Disease | DX: I35.0 Nonrheumatic aortic (valve) stenosis (principal); I48.0 Paroxysmal atrial fibrillation; I25.10 Atherosclerotic heart disease of native coronary artery without angina pectoris | CPT/HCPCS: 93005; 99212 ==

== ENCOUNTER → 2022-04-16 09:04 | Outpatient (BNVA) | payer MEDICARE, OTHER, SELFPAY | PROVIDERS: PCP Internal Medicine; Visit Provider Internal Medicine | DX: I48.0 Paroxysmal atrial fibrillation (principal); Z79.01 Long term (current) use of anticoagulants; Z51.81 Encounter for therapeutic drug level monitoring | CPT/HCPCS: 85610; 99211 ==

== ENCOUNTER → 2022-05-14 08:56 | Outpatient (BNVA) | payer MEDICARE, OTHER, SELFPAY | PROVIDERS: PCP Internal Medicine; Visit Provider Internal Medicine | DX: I48.0 Paroxysmal atrial fibrillation (principal); Z79.01 Long term (current) use of anticoagulants; Z51.81 Encounter for therapeutic drug level monitoring | CPT/HCPCS: 85610; 99211 ==

== ENCOUNTER 2022-06-11 08:20 | Outpatient (REF) | payer MEDICARE, OTHER, SELFPAY ==
[2022-06-11 08:40] LABS: MANUAL DIFF FLAG NO
[2022-06-11 08:46] LABS: Basophils Absolute Auto 0.1 X10*3/uL (0.0-0.2); Basophils Percent Auto 0.5 % (0-2); Eosinophils Absolute Auto 0.4 X10*3/uL (0.0-0.4); Eosinophils Percent Auto 3.6 % (0-4); Hematocrit 36.8 % (42.0-52.0); Hemoglobin 11.8 g/dl (14.0-18.0); Imm Gran Abs Auto 0.04 X10*3/uL (0.00-0.03); Imm Gran Pct Auto 0.4 % (0.0-0.4); Lymphocytes Absolute Auto 3.8 X10*3/uL (1.2-4.9); Lymphocytes Percent Auto 37.1 % (20-40); Mean Corpuscular HGB Conc 32.1 g/dl (31.0-36.0); Mean Corpuscular Hemoglobin 28.8 pg (27.0-33.0); Mean Corpuscular Volume 89.8 fL (80.0-98.0); Mean Platelet Volume 10.1 fL (9.4-12.4); Monocytes Absolute Auto 1.1 X10*3/uL (0.1-1.2); Monocytes Percent Auto 10.2 % (2-11); Neutrophils Percent Auto 48.2 % (45-73); Platelet Count 260 X10*3/uL (160-400); Red Cell Distribution Width 13.5 % (11.0-16.0); White Blood Count 10.3 X10*3/uL (4.8-10.8)
[2022-06-11 09:34] LABS: Alanine Aminotransferase 23 U/L (0-40); Albumin Level 3.4 g/dL (3.5-5.0); Alkaline Phosphatase 71 U/L (39-117); Anion Gap 14 (12-20); Aspartate Amino Transferase 26 U/L (5-37); Bilirubin Total 0.5 mg/dL (0.0-1.0); Blood Urea Nitrogen 51 mg/dL (9-16); Calcium 8.7 mg/dL (8.4-10.2); Carbon Dioxide 23 mmol/L (22-29); Chloride 111 mmol/L (96-108); Cholesterol 105 mg/dL; Estimated Glomerular Filt Rate 41; Glucose Random 147 mg/dL (60-115); HDL Cholesterol 34 mg/dL; LDL Cholesterol Calculated 48 mg/dl; Potassium 4.8 mmol/L (3.3-5.1); Sodium 143 mmol/L (135-145); Total Protein 5.8 g/dL (6.5-8.0); Triglycerides 119 mg/dL
[2022-06-11 10:02] LABS: Folate 9.3 ng/mL (> or = 4.0); Free T4 (Free Thyroxine) 1.55 ng/dL (0.71-1.85); Thyroid Stimulating Hormone 2.47 uIU/mL (0.32-4.0); Vitamin B12 455 pg/mL (200-900)
== END 2022-06-11 08:21 | disposition home or self-care (01) ==
LOC: HO.LAB 08:20
PROVIDERS: PCP Internal Medicine; Visit Provider Internal Medicine
DX: I48.0 Paroxysmal atrial fibrillation (principal); Z51.81 Encounter for therapeutic drug level monitoring; Z79.01 Long term (current) use of anticoagulants; E11.65 Type 2 diabetes mellitus with hyperglycemia; E78.00 Pure hypercholesterolemia, unspecified; I25.10 Atherosclerotic heart disease of native coronary artery without angina pectoris
CPT/HCPCS: 36415; 80053; 80061; 82607; 82746; 84439; 84443; 85025; 85610; 99211

== ENCOUNTER → 2022-07-09 09:02 | Outpatient (BNVA) | payer MEDICARE, OTHER, SELFPAY | PROVIDERS: PCP Internal Medicine; Visit Provider Internal Medicine | DX: I48.0 Paroxysmal atrial fibrillation (principal); Z79.01 Long term (current) use of anticoagulants; Z51.81 Encounter for therapeutic drug level monitoring | CPT/HCPCS: 85610; 99211 ==

== ENCOUNTER → 2022-08-13 09:05 | Outpatient (BNVA) | payer MEDICARE, OTHER, SELFPAY | PROVIDERS: PCP Internal Medicine; Visit Provider Internal Medicine | DX: I48.0 Paroxysmal atrial fibrillation (principal); Z79.01 Long term (current) use of anticoagulants; Z51.81 Encounter for therapeutic drug level monitoring | CPT/HCPCS: 85610; 99211 ==

== ENCOUNTER → 2022-09-10 09:15 | Outpatient (BNVA) | payer MEDICARE, OTHER, SELFPAY | PROVIDERS: PCP Internal Medicine; Visit Provider Internal Medicine | DX: I48.0 Paroxysmal atrial fibrillation (principal); Z79.01 Long term (current) use of anticoagulants; Z51.81 Encounter for therapeutic drug level monitoring | CPT/HCPCS: 85610; 99211 ==

== ENCOUNTER 2022-09-24 09:08 | Outpatient (AMB) | payer MEDICARE, OTHER, SELFPAY ==
[2022-09-24 09:18] LABS: Prothrombin Time Whole Bld POC 28.3 sec (11.1-13.5); ~PT, ~INR - Anti Coag Clinic 2.4 (0.9-1.1)
--- NOTE | 2022-09-24 09:22 | MHC.OFFVISCO ---
Intake Intake Visit Reasons: Anticoagulation Allergies lisinopril [LISINOPRIL] Allergy (Unknown, Verified 09/24/22 09:14) HIVES Medication List - Last Reconciled 09/24/22 by Zeenat Ball RN albuterol sulfate 90 mcg/actuation 2 puffs inhalation Q4H PRN amlodipine 10 mg PO DAILY 90 days ammonium lactate 12% appl topical atorvastatin 40 mg PO DAILY cholecalciferol (vitamin D3) 50 mcg PO DAILY fluticasone propion-salmeterol 500-50 mcg/dose (Advair Diskus) 1 ea inhalation BID glipizide 1 tab in the AM and 1/2 tab in the PM 90 days hydrochlorothiazide 12.5 mg PO DAILY ketoconazole 2% topical ketoconazole 2% appl topical BID lancets As directed losartan 50 mg PO DAILY metformin 500 mg PO DAILY metoprolol tartrate 50 mg PO BID 90 days mupirocin 2% 1 appl topical BID-TID tamsulosin 0.4 mg PO BEDTIME 90 days tolnaftate 1% 1 appl topical TID umeclidinium 62.5 mcg/actuation (Incruse Ellipta) 1 inh PO BEDTIME warfarin 5 mg See Protocol PO DAILY 90 days Nursing Note NO CP,SOB,DIET/MED CHANGES,FALLS OR SX OF BLEEDING. CONTINUE PRESENT DOSE AND FOLLOW-UP IN 4 WEEKS. GOOD UNDERSTANDING OF DOSING INSTR. Anti-Coag Initial Assessment Social Hx Patient Tobacco Use Status: Former Tobacco user Tobacco use type: Cigarette alcohol intake: never Coding Level of Care Code Est Patient Level 1 Diagnoses Current use of anticoagulant therapy Z79.01 Assessment & Plan Assessment & Plan (1) Current use of anticoagulant therapy: Code(s): Z79.01 - salvage determiner (current) use of anticoagulants Category: Medical
== END 2022-09-24 09:23 | disposition home or self-care (01) ==
LOC: HO.ACS 09:08
PROVIDERS: PCP Internal Medicine; Visit Provider Internal Medicine
DX: Z79.01 Long term (current) use of anticoagulants (principal)

== ENCOUNTER → 2022-09-24 09:08 | Outpatient (BNVA) | payer MEDICARE, OTHER, SELFPAY | PROVIDERS: PCP Internal Medicine; Visit Provider Internal Medicine | DX: I48.0 Paroxysmal atrial fibrillation (principal); Z79.01 Long term (current) use of anticoagulants; Z51.81 Encounter for therapeutic drug level monitoring | CPT/HCPCS: 85610; 99211 ==

== ENCOUNTER 2022-10-16 11:10 | Outpatient (REF) | payer MEDICARE, OTHER, SELFPAY ==
[2022-10-16 12:33] LABS: Appearance Urine Clear; Color Urine Yellow; Glucose Urine UA Negative (Negative); Leukocyte Esterase Urine Negative (Negative); Nitrite Urine Negative (Negative); PH 5.5 (5.0-9.0); UMIC TRIGGER UA YES; Urine Blood Negative (Negative); Urine Ketones Negative (Negative); Urine Protein 300 (3+) mg/dL (Neg-Trace)
[2022-10-16 12:35] LABS: Bacteria Urine None Seen (None Seen); Hyaline Casts Urine 0-2 /LPF (0-2); RBC Urine 0-2 /HPF (0-2); Squamous Epithelial Cell Urine 0-2 /HPF (0-2); WBC Urine 0-5 /HPF (0-5)
[2022-10-16 12:49] LABS: Alanine Aminotransferase 24 U/L (0-40); Albumin Level 3.5 g/dL (3.5-5.0); Alkaline Phosphatase 77 U/L (39-117); Anion Gap 16 (12-20); Aspartate Amino Transferase 25 U/L (5-37); Bilirubin Total 0.4 mg/dL (0.0-1.0); Blood Urea Nitrogen 44 mg/dL (9-16); Calcium 8.9 mg/dL (8.4-10.2); Carbon Dioxide 22 mmol/L (22-29); Chloride 109 mmol/L (96-108); Estimated Glomerular Filt Rate 45; Glucose Random 128 mg/dL (60-115); Potassium 4.7 mmol/L (3.3-5.1); Sodium 142 mmol/L (135-145); Total Protein 6.7 g/dL (6.5-8.0)
== END 2022-10-16 11:11 | disposition home or self-care (01) ==
LOC: HO.LAB 11:10
PROVIDERS: PCP Internal Medicine; Visit Provider Internal Medicine
DX: N28.9 Disorder of kidney and ureter, unspecified (principal)
CPT/HCPCS: 36415; 80053; 81001

== ENCOUNTER 2022-10-17 11:27 | Outpatient (AMB) | payer MEDICARE, OTHER, SELFPAY ==
[2022-10-17 11:30] VITALS: BP 142/62; PULSE 63; O2SAT 98; BMI 26.2
--- NOTE | 2022-10-17 11:30 | A.OFFVIS_ITS ---
Intake Vital Signs 10/17/22 11:30 Height 6 ft Weight 193 lb BMI 26.2 BP 142/62 H Blood Pressure Location Lt brachial Position Sitting Pulse 63 Pulse Source Pulse Oximeter Temp Source Skin Pulse Oximetry (%) 98 Oxygen Delivery Method Room Air Intake Visit Reasons: [facility] G0439 Allergies lisinopril [LISINOPRIL] Allergy (Unknown, Verified 10/17/22 11:41) HIVES Medication List - Last Reconciled 10/17/22 by JOAQUIN Parks albuterol sulfate 90 mcg/actuation 2 puffs inhalation Q4H PRN amlodipine 10 mg PO DAILY 90 days ammonium lactate 12% appl topical atorvastatin 40 mg PO DAILY cholecalciferol (vitamin D3) 50 mcg PO DAILY fluticasone propion-salmeterol 500-50 mcg/dose (Advair Diskus) 1 ea inhalation BID glipizide 1 tab in the AM and 1/2 tab in the PM 90 days hydrochlorothiazide 12.5 mg PO DAILY ketoconazole 2% topical ketoconazole 2% appl topical BID lancets As directed losartan 50 mg PO DAILY metformin 500 mg PO DAILY metoprolol tartrate 50 mg PO BID 90 days mupirocin 2% 1 appl topical BID-TID tamsulosin 0.4 mg PO BEDTIME 90 days tolnaftate 1% 1 appl topical TID umeclidinium 62.5 mcg/actuation (Incruse Ellipta) 1 inh PO BEDTIME warfarin 5 mg See Protocol PO DAILY 90 days Fall Risk Assessment Fall risk assessment: No Falls in past year Date Fall Risk Assessed: 10/17/22 HPI [facility] G0439 HPI Details Patient is an 86-year-old male presents today for subsequent wellness visit. Patient of Dr. Stewart. Patient is up-to-date with his health preventative screenings and immunizations. [place] of care was reviewed with the patient and he was provided with a screening schedule. Patient reports that he has a MOLST form in place and he will provide office with a copy, he also reports that he has a healthcare proxy form at home that he will need to fill out. [facility] Medical History (Updated 10/17/22 @ 12:03 by JOAQUIN Parks) Above knee amputation of right lower extremity Aortic stenosis COPD (chronic obstructive pulmonary disease) Coronary artery disease Diabetic nephropathy Facial nerve palsy Gout History of CVA (cerebrovascular accident) Hypercholesterolemia Hypertension Left carotid artery stenosis Medicare annual wellness visit, initial Paroxysmal atrial fibrillation Peripheral vascular disease 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 Mother No problems noted. Social History Housing: House Alcohol intake: never Patient Tobacco Use Status: Former Tobacco user Tobacco use type: Cigarette Years Smoked: quit 1987 e-Cigarette/Vaping Use: Never Used Second Hand Smoke Exposure: No service: No Current occupational status: retired Cognitive needs: Yes (cane/walker/wheelchair) Hearing needs: Yes Vision needs: Yes Questionnaire Medicare Wellness Checkup What is your age?: 80 or older What gender do you identify with?: male During the past 4 weeks, how much have you been bothered by emotional problems such as feeling anxious, depressed, irritable, sad or downhearted, and blue?: not at all During the past 4 weeks, has your physical & emotional health limited your social activities with family, friends, neighbors, or groups?: not at all During the past 4 weeks, how much bodily pain have you generally had?: very mild pain During the past 4 weeks, was someone available to help you if you needed & wanted help?: yes, some During the past 4 weeks, what was the hardest physical activity you could do for at least 2 minutes?: moderate Can you get to places out of walking distance without help? (For eg., can you travel alone on buses, taxis or drive your car?): Yes Can you go shopping for groceries or clothes without someone's help?: Yes Can you prepare your own meals?: Yes Can you do your housework without help?: Yes Because of any health problems, do you need the help of another person with your personal care needs such as eating, bathing, dressing or getting around the house?: No Can you handle your own money without help?: Yes During the past 4 weeks, how would you rate your health in general?: very good During the past 4 weeks how have things been going for you?: good & bad parts about equal Are you having difficulties driving your car?: no Do you always fasten your seat belt when you are in a car?: no During past 4 weeks, have you been bothered by the following: never: Falling or dizzy when standing up, Sexual problems?, Trouble eating well?, Teeth or denture problems?, Problems using the telephone? and Tiredness or fatigue? Have you fallen 2 or more times in the past year?: No Are you afraid of falling?: No Are you a smoker?: no During the past 4 weeks, how many drinks of wine, beer, or other alcoholic beverages did you have?: no alcohol at all Do you exercise for about 20 minutes 3 or more times a week?: yes, some of the time Have you been given information to help with the following?: yes: Hazards in your house that might hurt you? and yes: Keeping track of your medications? How often do you have trouble taking medicines the way you have been told to take them?: I always take medicine as prescribed How confident are you that you can control & manage most of your health problems?: somewhat confident What is your race?: White Mini Mental State Exam (MMSE) Orientation What is the (year) (season) (date) (day) (month)?: year, season, date, day and month Score Score: 5 Activity of Daily Living Bathing - sponge bath, tub bath or shower: receives no assistance (gets in/out by self, if usual bathing means Dressing - getting clothes from closets & drawers, including inner/outer garments & fasteners.: gets clothes & gets completely dressed without help Toileting - going to the 'toilet room' for urine/bowel elimination & cleaning self/arranging clothes: goes to toilet room, cleans self, arranges clothes without help Transfer: moves in & out of bed and chair without help (may use support object) Continence: controls urination/bowel movements completely by self Feeding: feeds self without help Total Score: 0 Information obtained from: patient Using telephone: independent Traveling: independent Shopping: independent Preparing meals: independent Housework: independent Taking medicine: independent Managing money: independent PHQ-9 Over the last 2 weeks, how often have you been bothered by any of the following problems? 1. Little interest or pleasure in doing things: not at all 2. Feeling down, depressed, or hopeless: not at all 3. Trouble falling or staying asleep, or sleeping too much: not at all 4. Feeling tired or having little energy: not at all 5. Poor appetite or overeating: not at all 6. Feeling bad about yourself - or that you are a failure or have let yourself or your family down: not at all 7. Trouble concentrating on things, such as reading the newspaper or watching television: not at all 8. Moving or speaking so slowly that other people could have noticed. Or the opposite - being so fidgety or restless that you have been moving around a lot more than usual: not at all 9. Thoughts that you would be better off or of hurting yourself in some way: not at all Total score: 0 Depression Screening Interpretation: Negative [id number] - PHQ-9 Billing: Yes Source: Developed by Drs. Omega Negron, Armond Zapien and colleagues, with an educational klaudia from [employer]. ANDREY-7 AMB Questionnaire ANDREY-7 Date ANDREY - 7 assessed: 05/15/22 Source: Developed by Drs. Omega Negron, Armond Zapien and colleagues, with an educational klaudia from [employer]. AUDIT C Alcohol Use Questionnaire (AUDIT-C) 1. How often do you have a drink containing alcohol?: Never 2. How many drinks containing alcohol do you have on a typical day when you are drinking?: 1 or 2 (0) 3. How often do you have six or more drinks on one occasion?: Never Total Score: 0 Score Reviewed/Action Taken: No Thrive Questionnaire Date Thrive assessed: 05/15/22 Physical Exam Vital Signs: Last Vital Signs Pulse 63 10/17/22 11:30 BP 142/62 H 10/17/22 11:30 Pulse Ox 98 10/17/22 11:30 Oxygen Delivery Method Room Air 10/17/22 11:30 BMI result Body Mass Index 26.2 Const General: cooperative and no acute distress Orientation/consciousness: patient oriented x3 HEENT Other: Whisper test: fail Neuro Other: Balance: Slightly abnormal - patient ambulates with a cane, has right AKA and prosthesis Get up and walk: unable to Romberg: negative Tandem gait: unable to General: patient oriented x3 Assessment & Plan Assessment & Plan (1) Medicare annual wellness visit, subsequent: Code(s): Z00.00 - Encounter for general adult medical examination without abnormal findings (2) Paroxysmal atrial fibrillation: Comment: December 2012 Code(s): I48.0 - Paroxysmal atrial fibrillation Plan: Continue to follow-up with [facility] Continue metoprolol and Coumadin (3) COPD (chronic obstructive pulmonary disease): Code(s): J44.9 - Chronic obstructive pulmonary disease, unspecified Qualifiers: COPD type: emphysema Emphysema type: unspecified Qualified Code(s): J43.9 - Emphysema, unspecified Plan: Stable Continue current inhalers (4) Hypercholesterolemia: Code(s): E78.00 - Pure hypercholesterolemia, unspecified Plan: Continue atorvastatin Low-cholesterol diet (5) Hypertension: Code(s): I10 - Essential (primary) hypertension Qualifiers: Hypertension type: essential hypertension Qualified Code(s): I10 - Essential (primary) hypertension Plan: Continue current treatment Low-sodium diet (6) Type 2 diabetes mellitus with hyperglycemia: Comment: Dr. Miguel Code(s): E11.65 - Type 2 diabetes mellitus with hyperglycemia Qualifiers: Diabetes mellitus superintendent container terminal insulin use: without long-term use Qualified Code(s): E11.65 - Type 2 diabetes mellitus with hyperglycemia Plan: A1c 6.1 08/2022 Continue current treatment Low-carbohydrate diet (7) Current use of anticoagulant therapy: Code(s): Z79.01 - nursing home (current) use of anticoagulants Plan: Followed by [facility] Quality Reporting (2019) Fall Risk Screening ([facility] 139) Last assessed Fall Risk: 10/17/22 Fall risk assessment: No Falls in past year Depression/Bipolar (159/160/161/177) PHQ-9: Total score: 0 Coding Level of Care Code Medicare Subsequent (G0439) Diagnoses Medicare annual wellness visit, subsequent Z00.00 Paroxysmal atrial fibrillation I48.0 COPD (chronic obstructive pulmonary disease) J43.9 COPD type: emphysema Emphysema type: unspecified Hypercholesterolemia E78.00 Hypertension I10 Hypertension type: essential hypertension Type 2 diabetes mellitus with hyperglycemia E11.65 Diabetes mellitus superintendent container terminal insulin use: without superintendent container terminal use Current use of anticoagulant therapy Z79.01 CPT Codes Advance Care Planning - Time spent: 1-15 minutes, not on file ([id number]) Advance Care Planning Advance Care Planning discussion: Exists, not on file Date of discussion: 10/17/22 Who was present: pt and manufacturing cost estimator Forms completed: None Time spent: 1-15 minutes, not on file Actual minutes spent: 2 Did not discuss due to Cultural/Spiritual beliefs: No
== END 2022-10-17 11:51 | disposition home or self-care (01) ==
PROVIDERS: PCP Internal Medicine; Visit Provider Nurse Practitioner Family
DX: Z00.00 Encounter for general adult medical examination without abnormal findings (principal); I48.0 Paroxysmal atrial fibrillation; Z79.01 Long term (current) use of anticoagulants; J43.9 Emphysema, unspecified
CPT/HCPCS: 1124F; G0439

== ENCOUNTER → 2022-10-27 09:54 | Outpatient (REF) | payer MEDICARE, OTHER, SELFPAY ==
--- NOTE | 2022-10-27 09:56 | CA_ITS ---
Transthoracic Echocardiogram Patient (Last, First, Middle): Florentino Bean R Gender: Male Date of : 1935 Age: 86 Procedure Date: 10/27/2022 Procedure Type: Transthoracic Echocardiogram Location: OP Height: 182.88 cm Weight: 84.82 kg BSA: 2.07 m2 Heart Rate: 58 bpm BP: 156 / 52 mmHg Principal Solutions Architect: SB Referring MD: Forrest Chaudhari MD Reduction Furnace Operator: Forrest Chaudhari MD Symptoms: I35.0 - Nonrheumatic aortic (valve) stenosis Study Quality: Fair/restricted mobility ECG Rhythm: Bradycardia Conclusions: - 1. Technically limited study despite use of contrast agent 2. Normal LV ejection fraction 55-60% with impaired relaxation filling pattern 3. Moderate to severe aortic stenosis with mean gradient of 16 mmHg Findings Procedure Information Contrast agent, definity, is being given per protocol without apparent complications. The quality of the study was technically difficult and apical images are suboptimal for definitive comment. The study quality is limited by patients body habitus and lung artifact. Left Ventricle Normal left ventricular size, thickness, and systolic function. The visually estimated ejection fraction is between 55-60%. Regional wall motion abnormalities can not be excluded due to suboptimal endocardial definition. Spectral Doppler is indicative of an impaired relaxation filling pattern. E/E prime ratio is between 8 and 15 consistent with indeterminate filling pressures. Right Ventricle The right ventricle was not well visualized. Atria The left atrium is normal in size. Interatrial shunt cannot be excluded. The right atrium was not well visualized. Aortic Valve There is moderate calcification of the aortic valve. There is moderate to severe aortic valve stenosis. The peak aortic gradient is 31 mmHg.The mean gradient is 16 mmHg. The aortic valve area is 1.11 cm2. There is no aortic valve regurgitation. Mitral Valve There is mild anterior and posterior mitral leaflet thickening. There is mild anterior and mild posterior mitral annular calcification. There is trace mitral valve regurgitation. There is no mitral valve stenosis. Pulmonic Valve The pulmonic valve was not well visualized. Tricuspid Valve The tricuspid valve was not well visualized. Tricuspid regurgitation envelope is inadequate for calculation of right ventricular systolic pressure. Normal right atrial pressure. Great Vessels The aorta was not well visualized. The pulmonary artery was not well visualized. Venous The inferior vena cava is normal in size and collapses greater than 50% with inspiration. Pericardium/Pleural The pericardium was not well visualized. Prior Study Comparison No significant change compared to prior study dated: 03/21/2022. Measurements 2D Linear Measurements IVSd: 0.90 0.6-0.9/0.6-1.0 cm LVIDd: 5.65 3.9-5.3/4.2-5.9 cm LVIDd Index: 2.73 2.4-3.2/2.2-3.1 cm/m2 LVIDs: 4.28 2.0-3.6 cm LVPWd: 0.78 0.7-1.1 cm LA Diam: 4.00 2.7-3.8/3.0-4.0 cm LAIDs Index: 1.93 1.5-2.3 cm/m2 LV Mass: 220.84 67-162/88-224 g LV Mass Index: 106.68 43-95/49-115 g/m2 LVOT Diam: 2.20 3.0+(-)1.3 cm 2D Systolic Function EF Teich: 50.00 >55% Mitral Valve MV VTI: 0.29 MV Pk Sudhir: 1.09 MV Mn Sudhir: 0.65 MV Pk Grad: 5.00 MV Mn Grad: 2.00 MV Pk E: 0.92 MV PK A: 1.10 MV Decel Time: 218.00 E/A: 0.80 E'Lateral: 7.83 E'Medial: 5.11 E/E' Med: 18.00 E/E' Lat: 11.80 PHT: 64.00 MVA PHT: 3.44 MVA Continuity: 2.47 Decel Martin: 4.22 Aortic Valve AoV Pk Sudhir: 2.78 AoV Mn Sudhir: 1.82 AoV VTI: 0.64 AoV Pk Grad: 31.00 Aov Mn Grad: 16.00 GILMAR Cont.VTI: 1.11 LVOT LVOT Pk Sudhir: 0.74 LVOT Mn Sudhir: 0.52 LVOT VTI: 0.19 LVOT Pk Grad: 2.00 LVOT Mn Grad: 1.00 LVOT Diam: 2.20 LVOT Area: 3.80 Diastolic Function MV Pk E: 0.92 MV Pk A: 1.10 E/A: 0.80 E'Medial: 5.11 E/E' Med: 18.00 E' Laterial: 7.83 E/E' Lat: 11.80 Right Ventricle TAPSE (mm): 28.70 TVS' Sudhir: 11.40 Tricuspid Valve RA Press: 3.00 Updated in Other Vendor System with Status of Final Forrest Chaudhari MD electronically signed on 10/27/2022 4:38:10 PM with status of Final
== END ==
LOC: HO.CARD 09:54
PROVIDERS: PCP Internal Medicine; Visit Provider Internal Medicine Cardiovascular Disease
DX: R01.1 Cardiac murmur, unspecified (principal); I35.0 Nonrheumatic aortic (valve) stenosis
CPT/HCPCS: 93306; Q9957

== ENCOUNTER → 2022-10-27 09:56 | Outpatient (BNV) | payer MEDICARE, OTHER, SELFPAY | PROVIDERS: PCP Internal Medicine; Visit Provider Internal Medicine Cardiovascular Disease | DX: I35.0 Nonrheumatic aortic (valve) stenosis (principal) | CPT/HCPCS: 93306 ==

== ENCOUNTER 2022-10-29 08:50 | Outpatient (AMB) | payer MEDICARE, OTHER, SELFPAY ==
--- NOTE | 2022-10-29 09:04 | MHC.OFFVISCO ---
Intake Intake Visit Reasons: Anticoagulation Allergies lisinopril [LISINOPRIL] Allergy (Unknown, Verified 10/29/22 08:58) HIVES Medication List - Last Reconciled 10/29/22 by Elinor Obrien RN albuterol sulfate 90 mcg/actuation 2 puffs inhalation Q4H PRN amlodipine 10 mg PO DAILY 90 days ammonium lactate 12% appl topical atorvastatin 40 mg PO DAILY cholecalciferol (vitamin D3) 50 mcg PO DAILY fluticasone propion-salmeterol 500-50 mcg/dose (Advair Diskus) 1 ea inhalation BID glipizide 1 tab in the AM and 1/2 tab in the PM 90 days hydrochlorothiazide 12.5 mg PO DAILY ketoconazole 2% topical ketoconazole 2% appl topical BID lancets As directed losartan 50 mg PO DAILY metformin 500 mg PO DAILY metoprolol tartrate 50 mg PO BID 90 days mupirocin 2% 1 appl topical BID-TID tamsulosin 0.4 mg PO BEDTIME 90 days tolnaftate 1% 1 appl topical TID umeclidinium 62.5 mcg/actuation (Incruse Ellipta) 1 inh PO BEDTIME warfarin 5 mg See Protocol PO DAILY 90 days Nursing Note INR: 2.7- in therapeutic range Medications and supplements reviewed- no changes No changes in health, diet, medications, or supplements, Denies any signs and symptoms of bleeding or bruising or clotting. Bleeding, bruising, clotting discussed Nutritional guidance given Dose: 2.5mg x 3, 5mg x 4 F/U INR: pt req 4 weeks Patient verbalizes understanding of instructions given pt with increased stress with issues spouses health. Anti-Coag Initial Assessment Social Hx Patient Tobacco Use Status: Former Tobacco user Tobacco use type: Cigarette alcohol intake: never Coding Level of Care Code Est Patient Level 1 Diagnoses Current use of anticoagulant therapy Z79.01 Assessment & Plan Assessment & Plan (1) Current use of anticoagulant therapy: Code(s): Z79.01 - prison (current) use of anticoagulants Category: Medical
[2022-10-29 09:05] LABS: Prothrombin Time Whole Bld POC 32.6 sec (11.1-13.5); ~PT, ~INR - Anti Coag Clinic 2.7 (0.9-1.1)
== END 2022-10-29 09:08 | disposition home or self-care (01) ==
LOC: HO.ACS 08:50
PROVIDERS: PCP Internal Medicine; Visit Provider Internal Medicine
DX: Z79.01 Long term (current) use of anticoagulants (principal)

== ENCOUNTER → 2022-10-29 08:50 | Outpatient (BNVA) | payer MEDICARE, OTHER, SELFPAY | PROVIDERS: PCP Internal Medicine; Visit Provider Internal Medicine | DX: I48.0 Paroxysmal atrial fibrillation (principal); Z79.01 Long term (current) use of anticoagulants; Z51.81 Encounter for therapeutic drug level monitoring | CPT/HCPCS: 85610; 99211 ==

== ENCOUNTER 2022-11-03 11:14 | Outpatient (AMB) | payer MEDICARE, OTHER, SELFPAY ==
--- NOTE | 2022-11-03 11:25 | A.OFFVIS_ITS ---
Intake Vital Signs 11/03/22 11:26 Height 6 ft Weight 192 lb 10.944 oz BMI 26.1 BP 122/54 L Blood Pressure Location Lt brachial Position Sitting Pulse 67 Intake Visit Reasons: 6 month f/up after echo Intake Note: 6 month follow up Residential Sales Required: No Accompanied by: Self / Same As Patient Allergies lisinopril [LISINOPRIL] Allergy (Unknown, Verified 11/03/22 11:29) HIVES Medication List - Last Reconciled 11/03/22 by Forrest Chaudhari MD albuterol sulfate 90 mcg/actuation 2 puffs inhalation Q4H PRN amlodipine 10 mg PO DAILY 90 days ammonium lactate 12% appl topical atorvastatin 40 mg PO DAILY cholecalciferol (vitamin D3) 50 mcg PO DAILY fluticasone propion-salmeterol 500-50 mcg/dose (Advair Diskus) 1 ea inhalation BID glipizide 1 tab in the AM and 1/2 tab in the PM 90 days hydrochlorothiazide 12.5 mg PO DAILY ketoconazole 2% topical ketoconazole 2% appl topical BID lancets As directed losartan 50 mg PO DAILY metformin 500 mg PO DAILY metoprolol tartrate 50 mg PO BID 90 days mupirocin 2% 1 appl topical BID-TID tamsulosin 0.4 mg PO BEDTIME 90 days tolnaftate 1% 1 appl topical TID umeclidinium 62.5 mcg/actuation (Incruse Ellipta) 1 inh PO BEDTIME warfarin 5 mg See Protocol PO DAILY 90 days HPI HPI Comments History of Present Illness Details Florentino comes for follow-up. His recent echocardiogram shows moderately severe aortic stenosis, which has remained stable with mean gradient of only 16 mm Hg. This is suggestive of low flow aortic stenosis. He denies any new cardiac symptoms. Denies any exertional chest pain or worsening shortness of breath or lightheadedness. No syncopal episodes. No recurrent episodes of atrial fibrillation. No bleeding issues or neurologic events. Denies any prolonged palpitations irregular heartbeat. ON LICENSE OF [facility] Medical History Above knee amputation of right lower extremity Aortic stenosis COPD (chronic obstructive pulmonary disease) Coronary artery disease Diabetic nephropathy Facial nerve palsy Gout History of CVA (cerebrovascular accident) Hypercholesterolemia Hypertension Left carotid artery stenosis Medicare annual wellness visit, initial Paroxysmal atrial fibrillation Peripheral vascular disease 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 Mother No problems noted. Social History Housing: House Alcohol intake: never Patient Tobacco Use Status: Former Tobacco user Tobacco use type: Cigarette Years Smoked: quit 1987 e-Cigarette/Vaping Use: Never Used Second Hand Smoke Exposure: No service: No Current occupational status: retired Cognitive needs: Yes (cane/walker/wheelchair) Hearing needs: Yes Vision needs: Yes Review of Systems Const Denies weakness ENT Denies dizziness Card Denies chest pain, Denies chest pain with activity, Denies syncope, Denies rapid heart rate, Denies pedal edema, Denies edema, Denies leg edema, Denies lightheadedness, Denies palpitations, Denies dyspnea, Denies dyspnea on exertion and Denies orthopnea Resp Denies cough, Denies dyspnea and Denies dyspnea on exertion GI Denies hematochezia and Denies change in stool character Musc Denies abnormal gait, Denies muscle cramps, Denies muscle weakness, Denies numbness, Denies radiating pain into limb and Denies tingling Neuro Denies abnormal gait, Denies dizziness, Denies syncope, Denies numbness, Denies tingling and Denies weakness Endo Denies palpitations Physical Exam Vital Signs: Last Vital Signs Pulse 67 11/03/22 11:26 BP 122/54 L 11/03/22 11:26 BMI result Body Mass Index 26.1 Const General: cooperative, comfortable, no acute distress, alert and awake Nutritional Appearance: overweight Orientation/consciousness: patient oriented x3 Limitations: ambulation with cane Neck Neck: Yes trachea midline, Yes supple and Yes no JVD Resp Effort & Inspection: normal respiratory effort Auscultation: clear to auscultation bilaterally and diminished lung sounds Cardio Jugular venous distension: no JVD Palpation: normal PMI Rate: regular rate Rhythm: regular rhythm Heart sounds: S1 normal heart sound present, S2 normal heart sound present, no click, no gallops, Murmur heart sound present systolic late, decrescendo and crescendo and Other heart sounds present (S4 present) GI Auscultation: normal bowel sounds Skin General skin exam: no rashes or lesions noted Neuro General: patient oriented x3 and no focal motor deficits Extrem General: Yes no clubbing, cyanosis or edema and Yes other (Right above knee amputation) Psych Appearance: grossly normal Assessment & Plan Assessment & Plan (1) Aortic stenosis: Comment: April 2021 moderate 1.2 cm squared March 2022he left ventricular systolic function is low normal. The calculated ejection fraction is 54% by biplane method. - The basal inferior and basal inferolateral segments are akinetic. - There is moderate to severe aortic valve stenosis. 1.0 cm2 Code(s): I35.0 - Nonrheumatic aortic (valve) stenosis Plan: Aortic stenosis which is moderately severe by echocardiogram with only mean gradient of 60 mm Hg. Most likely suggestive of paradoxical low-flow aortic stenosis. Clinically with no new symptoms. Will follow-up clinically in 6 months time. Continue aggressive vascular risk factor modification, see below. No interventions required at this point time. Cardinal symptoms associated with aortic stenosis were discussed with him. (2) Coronary artery disease: Comment: An STEMI December [address]CA stent [address] Chaudhari Code(s): I25.10 - Atherosclerotic heart disease of [place] coronary artery without angina pectoris Qualifiers: Coronary Disease-Associated Artery/Lesion type: [place] artery [place] vs. transplanted heart: [place] heart Associated angina: without angina Qualified Code(s): I25.10 - Atherosclerotic heart disease of [place] coronary artery without angina pectoris Plan: CAD with prior bare metal stent to the RCA. No recurrent symptoms of angina. Continue aggressive vascular risk factor modification. Currently on warfarin therapy for anticoagulation. Avoid aspirin therapy to reduce bleeding risk. Continue aggressive blood pressure control which is currently well optimized. Target goal blood pressure less than 130/84. Continue high-intensity statin therapy. Advised to call me with any new symptoms. (3) Paroxysmal atrial fibrillation: Comment: December 2012 Code(s): I48.0 - Paroxysmal atrial fibrillation Plan: Fibrillation without any obvious clinical recurrence at this point time. Continue therapy with metoprolol to reduce cardiac excitability. Currently does not require antiarrhythmic drug support. Continue full oral anticoagulation, currently on warfarin therapy. This is being followed by [facility]. Maintain target INR between 2 and 3. Avoidance of stimulants was discussed. Follow up in the clinic in 6 months time with EKG. Coding Level of Care Code Est Pt Level 4 (76830) Diagnoses Aortic stenosis I35.0 Coronary artery disease I25.10 Coronary Disease-Associated Artery/Lesion type: [place] artery [place] vs. transplanted heart: [place] heart Associated angina: without angina Paroxysmal atrial fibrillation I48.0
[2022-11-03 11:26] VITALS: BP 122/54; PULSE 67; BMI 26.1
== END 2022-11-03 11:42 | disposition home or self-care (01) ==
PROVIDERS: PCP Internal Medicine; Referring Provider Internal Medicine; Visit Provider Internal Medicine Cardiovascular Disease
DX: I35.0 Nonrheumatic aortic (valve) stenosis (principal); I25.10 Atherosclerotic heart disease of native coronary artery without angina pectoris; I48.0 Paroxysmal atrial fibrillation
CPT/HCPCS: 99214

== ENCOUNTER → 2022-11-03 11:14 | Outpatient (BNVA) | payer MEDICARE, OTHER, SELFPAY | PROVIDERS: PCP Internal Medicine; Referring Provider Internal Medicine; Visit Provider Internal Medicine Cardiovascular Disease | DX: I25.10 Atherosclerotic heart disease of native coronary artery without angina pectoris (principal); I10 Essential (primary) hypertension; I35.0 Nonrheumatic aortic (valve) stenosis; I48.0 Paroxysmal atrial fibrillation; Z95.5 Presence of coronary angioplasty implant and graft | CPT/HCPCS: 99212 ==

== ENCOUNTER 2022-11-04 09:34 | Outpatient (AMB) | payer MEDICARE, OTHER, SELFPAY ==
--- NOTE | 2022-11-04 09:50 | A.OFFVIS_ITS ---
Intake Intake Visit Reasons: 1 year follow up Intake Note: Patient is present for Follow Up Urology Med: Tamsulosin Antibiotic Allergy: None Blood Thinner: Warfarin Pharmacy: [facility] Allergies lisinopril [LISINOPRIL] Allergy (Unknown, Verified 11/04/22 09:54) HIVES Medication List - Last Reconciled 11/04/22 by Maynor Wright MD albuterol sulfate 90 mcg/actuation 2 puffs inhalation Q4H PRN amlodipine 10 mg PO DAILY 90 days ammonium lactate 12% appl topical atorvastatin 40 mg PO DAILY cholecalciferol (vitamin D3) 50 mcg PO DAILY fluticasone propion-salmeterol 500-50 mcg/dose (Advair Diskus) 1 ea inhalation BID glipizide 1 tab in the AM and 1/2 tab in the PM 90 days hydrochlorothiazide 12.5 mg PO DAILY ketoconazole 2% topical ketoconazole 2% appl topical BID lancets As directed losartan 50 mg PO DAILY metformin 500 mg PO DAILY metoprolol tartrate 50 mg PO BID 90 days mupirocin 2% 1 appl topical BID-TID tamsulosin 0.4 mg PO BEDTIME 90 days tolnaftate 1% 1 appl topical TID umeclidinium 62.5 mcg/actuation (Incruse Ellipta) 1 inh PO BEDTIME warfarin 5 mg See Protocol PO DAILY 90 days HPI HPI Comments History of Present Illness Details Florentino is a pleasant male. He is a patient of Dr. Stewart. He is seen for the following urologic conditions - lower urinary tract symptoms Lower urinary tract follow-up Stable urination Happy with current therapy is currently undergoing a number of medical treatments Lower urinary tract symptoms Progressive urinary urgency Nocturia 1-2 times General bothersome 3 Current therapy tamsulosin Less bother with improved stream, improved bladder emptying [facility] Medical History Above knee amputation of right lower extremity Aortic stenosis COPD (chronic obstructive pulmonary disease) Coronary artery disease Diabetic nephropathy Facial nerve palsy Gout History of CVA (cerebrovascular accident) Hypercholesterolemia Hypertension Left carotid artery stenosis Medicare annual wellness visit, initial Paroxysmal atrial fibrillation Peripheral vascular disease 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 Mother No problems noted. Social History Housing: House Alcohol intake: never Patient Tobacco Use Status: Former Tobacco user Tobacco use type: Cigarette Years Smoked: quit 1987 e-Cigarette/Vaping Use: Never Used Second Hand Smoke Exposure: No service: No Current occupational status: retired Cognitive needs: Yes (cane/walker/wheelchair) Hearing needs: Yes Vision needs: Yes Review of Systems Const Denies chills and Denies fever(s) Card Reports no additional complaints and Denies syncope Resp Denies cough GI Denies abdominal pain and Denies heartburn Reports as per HPI and Denies change in libido Neuro Denies syncope Psych Denies change in libido Endo Denies change in libido Physical Exam Const General: cooperative, healthy appearing, comfortable and no acute distress Orientation/consciousness: patient oriented x3 HEENT Face and sinus: Yes normal facial exam Mouth: moist mucous membranes Neck Neck: Yes normal visual inspection, Yes full ROM and Yes trachea midline Chest Chest palpation & inspection: normal inspection of the chest Resp Effort & Inspection: normal respiratory effort, able to speak in complete sentences and no respiratory distress GI Inspection: Yes normal to inspection Back/Spine/Pelvis Cervical Spine: normal cervical lordosis Thoracic/Lumbar Spine: thoracic and lumbar spine normal to inspection Skin General skin exam: no rashes or lesions noted Neuro General: patient oriented x3, gait normal, tone normal and moves all extremities Extrem General: Yes normal to inspection and Yes capillary refill normal Assessment & Plan Assessment & Plan (1) Urinary urgency: Code(s): R39.15 - Urgency of urination (2) Bladder outlet obstruction: Code(s): N32.0 - Bladder-neck obstruction Plan 6 month follow-up Medications: Refilled tamsulosin 0.4 mg PO BEDTIME 90 caps 3RF 90 days N40.1 - Benign prostatic hyperplasia with lower urinary tract symptoms, R35.1 - Nocturia Patient Instructions: Imaging studies, laboratory and physical exam results were discussed and reviewed in detail. No major barriers to patient understanding were identified. An opportunity to ask questions regarding the treatment plan was provided. All questions were answered. The patient expressed understanding and agreement with the above treatment plan. The patient is aware they should contact our office by phone for worsening of their current condition or the appearance of new urologic symptoms. Compliance is encouraged with any medications and followup testing that is ordered. It is a privilege to participate in the urologic care of your patient. If you have any questions or concerns regarding treatment for the above conditions, or other urologic issues, please do not hesitate to contact me. The office telephone contact is [phone]. This note is constructed using voice recognition software. While every effort has been made to ensure accuracy voltmeter operator errors may have been included. Yours sincerely, Dr Maynor Wright MD, [facility] - Urology Providers of Expert, Compassionate Care for the Genitourinary System Coding Level of Care Code Est Pt Level 4 (09582) Diagnoses Urinary urgency R39.15 Bladder outlet obstruction N32.0
== END 2022-11-04 10:17 | disposition home or self-care (01) ==
LOC: HO.HUSH 09:34
PROVIDERS: PCP Internal Medicine; Visit Provider Urology
DX: R39.15 Urgency of urination (principal); N32.0 Bladder-neck obstruction
CPT/HCPCS: 99213

== ENCOUNTER → 2022-11-04 09:34 | Outpatient (BNVA) | payer MEDICARE, OTHER, SELFPAY | PROVIDERS: PCP Internal Medicine; Visit Provider Urology ==

== ENCOUNTER 2022-11-19 13:20 | Emergency (ER) | payer MEDICARE, OTHER, SELFPAY ==
--- NOTE | ~2022-11-19 | CT_ITS ---
EXAMINATION: CT HEAD WITHOUT CONTRAST CLINICAL INFORMATION: Fall head COMPARISON: MRI brain from 01/19/2015 TECHNIQUE: Contiguous axial imaging was performed from the skull base to vertex without intravenous administration of contrast. This CT examination was performed using dose optimization techniques as appropriate, variously including the following: *Automated exposure control *Adjustment of mA and/or kV according to patient size (this includes techniques or standardized protocols for targeted exams where dose is matched to indication/reason for exam; i.e. extremities or head) *Use of iterative reconstruction technique DLP: 1260 mGy-cm FINDINGS: There is no evidence of acute intracranial hemorrhage or territorial infarction. Chronic white matter small vessel ischemic changes. Cerebral atrophy with commensurate No abnormal mass effect or midline shift is seen. Tavarez to white matter differentiation is well preserved. No extra-axial fluid collections are identified. There is no abnormal attenuation within the brain parenchyma. The osseous structures and soft tissues are normal. The mastoid air cells and visualized portions of the paranasal sinuses are well aerated. Vertebrobasilar atherosclerotic calcifications. CT/CT cervical spine wo IV con IMPRESSION: 1. No acute intracranial pathology. 2. Chronic white matter small vessel ischemic changes. EXAMINATION: Noncontrast CT scan of the cervical spine. INDICATION: Fall COMPARISON: None. TECHNIQUE: Helical, multidetector axial images were obtained from the occiput to the upper thorax. Coronal and sagittal reformats of the cervical spine were provided for interpretation. DLP: 1260 mGy-cm FINDINGS: No acute fractures or dislocations of the cervical spine are seen. Reversal of the normal cervical curvature. Multilevel degenerative changes. Anatomic alignment and positioning of the vertebral bodies and posterior elements is noted. The atlantoaxial joint and craniovertebral articulations are normal without evidence of subluxation. There is no prevertebral soft tissue swelling. Biapical pleural parenchymal scarring. Emphysematous changes. Carotid atherosclerosis. IMPRESSION: 1. No acute visible fracture or dislocation. 2. Reversal of the normal cervical curvature. 3. Multilevel degenerative changes.
[2022-11-19 13:57] VITALS: BP 152/43; PULSE 59; RESP 16; TEMP 36.6; O2SAT 98; BMI 26.4
--- NOTE | 2022-11-19 13:58 | ED.FALL ---
HPI - Fall General Chief Complaint: Fall Stated Complaint: fall / sent from urgent care Time Seen by Provider: 11/19/22 16:29 Source: patient and family Mode of arrival: wheelchair Limitations: no limitations History of Present Illness HPI Narrative: 86 male with history afib on coumadin, COPD, DM, HTN here with complaints of fall (unknown why but patient denies any pre-fall symptoms of dizziness, chest pain, shortness of breath, headache, palpitations) with head strike. NO LOC. Went to and referred in for CT. Patient has small abrasion left face, skin tear left forearm. He believes his tetanus is UTD. Related Data Home Medications Medication Instructions Recorded Confirmed cholecalciferol (vitamin D3) 50 50 mcg PO DAILY 03/19/20 11/04/22 mcg (2,000 unit) capsule tolnaftate 1 % topical powder 1 appl topical TID 03/19/20 11/04/22 lancets 28 gauge #100 ea 04/18/20 11/04/22 ketoconazole 2 % shampoo topical 09/12/20 11/04/22 ketoconazole 2 % topical cream appl topical BID 09/12/20 11/04/22 mupirocin 2 % topical ointment 1 appl topical BID-TID 09/12/20 11/04/22 ammonium lactate 12 % topical cream appl topical 08/13/22 11/04/22 Previous Rx's Medication Instructions Recorded fluticasone 500 mcg-salmeterol 50 1 ea inhalation BID #3 ea 01/08/22 mcg/dose blistr powdr for inhalation (Advair Diskus) metformin 500 mg tablet 500 mg PO DAILY #90 tabs 01/08/22 metoprolol tartrate 50 mg tablet 50 mg PO BID 90 days #180 tabs 01/29/22 amlodipine 10 mg tablet 10 mg PO DAILY 90 days #90 tabs 03/31/22 glipizide 5 mg tablet See Rx Instructions .Route 03/31/22 .COMPLEX 90 days #135 tabs umeclidinium 62.5 mcg/actuation 1 inh PO BEDTIME #90 grams 07/06/22 blister powder for inhalation (Incruse Ellipta) losartan 50 mg tablet 50 mg PO DAILY #90 tabs 07/07/22 warfarin 5 mg tablet 5 mg PO DAILY 90 days #90 tabs 08/05/22 atorvastatin 40 mg tablet 40 mg PO DAILY #90 tabs 08/19/22 albuterol sulfate 90 mcg/actuation 2 puff inhalation Q4H PRN 08/21/22 aerosol inhaler shortness of breath or wheezing #8.5 grams hydrochlorothiazide 12.5 mg tablet 12.5 mg PO DAILY #90 tabs 10/21/22 tamsulosin 0.4 mg capsule 0.4 mg PO BEDTIME 90 days #90 caps 11/04/22 Allergies Allergy/AdvReac Type Severity Reaction Status Date / Time lisinopril [LISINOPRIL] Allergy Unknown HIVES Verified 11/19/22 13:57 Review of Systems Review of Systems: Yes all other systems are reviewed and are negative Constitutional: Constitutional: Reports no additional constitutional complaints, Denies body ache(s), Denies chills, Denies fever(s), Denies headache(s) and Denies weakness Eyes: Eyes: Reports no additional eye complaints and Denies change in vision ENT: Reports system reviewed and no additional complaints, except as documented, Denies dizziness, Denies headache(s), Denies nasal congestion, Denies nasal discharge and Denies neck pain Cardiovascular: Cardiovascular: Reports no additional cardiovascular complaints, Denies chest pain, Denies leg edema and Denies dyspnea Respiratory: Respiratory: Reports no additional respiratory complaints, Denies cough and Denies dyspnea Gastrointestinal: Gastrointestinal: Reports no additional gastrointestinal complaints, Denies abdominal pain, Denies diarrhea, Denies nausea and Denies vomiting Genitourinary: Genitourinary: Denies urinary incontinence Musculoskeletal: Musculoskeletal: Reports no additional musculoskeletal complaints, Denies back pain, Denies arthralgias, Denies joint swelling, Denies neck pain, Denies numbness and Denies tingling Integumentary/Breasts: Skin/Breast: Reports system reviewed and no additional complaints, except as docu, Denies rash and Reports wounds Neurologic: Reports system reviewed and no additional complaints, except as documented, Denies Abnormal speech present, Denies dizziness, Denies headache(s), Denies numbness, Denies tingling and Denies weakness PMFSH Past Medical History Attestation statement: The following information was validated with the patient. Source: old records reviewed and nursing notes reviewed Medical History Above knee amputation of right lower extremity Aortic stenosis COPD (chronic obstructive pulmonary disease) Coronary artery disease Diabetic nephropathy Facial nerve palsy Gout History of CVA (cerebrovascular accident) Hypercholesterolemia Hypertension Left carotid artery stenosis Medicare annual wellness visit, initial Paroxysmal atrial fibrillation Peripheral vascular disease Squamous cell carcinoma of parotid Type 2 diabetes mellitus with hyperglycemia Surgical History History of eye surgery History of parotid gland excision History of right above knee amputation Stented coronary artery Family History Family History Father No problems noted. Mother No problems noted. Social History Social History Housing: House Alcohol intake: never Patient Tobacco Use Status: Former Tobacco user Tobacco use type: Cigarette Years Smoked: quit 1987 e-Cigarette/Vaping Use: Never Used Second Hand Smoke Exposure: No Advance Directives: No Advance Directives Information Provided: No service: No Current occupational status: retired Cognitive needs: Yes (cane/walker/wheelchair) Hearing needs: Yes Vision needs: Yes Physical Exam Vital Signs: Vital Signs: Last Vital Signs Temp 97.8 F 11/19/22 13:57 Pulse 59 11/19/22 13:57 Resp 16 11/19/22 13:57 BP 152/43 H 11/19/22 13:57 Pulse Ox 98 11/19/22 13:57 O2 Del Method Room Air 11/19/22 13:57 BMI result Body Mass Index 26.4 Const: General: cooperative, healthy appearing, comfortable and no acute distress Orientation/consciousness: patient oriented x3 Limitations: no limitations HEENT: Head: Yes normal to inspection, No Ferreira's sign and No raccoon eyes Ears: hearing grossly normal bilaterally and TM's normal bilaterally Outer ear/TM images: 1. Small abrasion. No active bleeding General nose exam: Normal external nose present Face and sinus: Yes normal facial exam Mouth: Normal oral and palatal mucosa present Throat: Yes posterior oropharynx normal Eyes: General: appearance normal, both eyes and all related structures Pupils: Equal, round and reactive pupils present Neck: Other: No midline tenderness, step-offs or deformities Neck: Yes normal visual inspection and Yes full ROM Chest: Chest palpation & inspection: normal inspection of the chest Resp: Effort & Inspection: normal respiratory effort Auscultation: clear to auscultation bilaterally Cardio: Rate: regular rate Rhythm: regular rhythm Peripheral pulses: Peripheral pulses 2+ throughout GI: Inspection: Yes normal to inspection Palpation (GI): Soft to palpation and nontender Auscultation: normal bowel sounds Back/Spine/Pelvis: Thoracic/Lumbar Spine: thoracic and lumbar spine normal to inspection Skin: General skin exam: no rashes or lesions noted Neuro: General: patient oriented x3, moves all extremities, no focal motor deficits and normal sensation to monofilament Cranial nerves: Yes CN's II-XII intact bilaterally, Yes Equal, round and reactive pupils present, Yes Bilaterally intact EOM present, Yes Nystagmus not present and Yes Normal facial strength present Cognition (Neuro): normal cognition Speech: No Abnormal speech present Motor exam (neuro): 5/5 motor strength present throughout Sensory Exam: Normal double simultaneous stimulation for sensation Extrem: Other: To the left lateral forearm there is a skin tear-bleeding control Active and passive range of motion is normal Distal CMS normal General: Yes normal to inspection Course Course Course Narrative: This is a rapid medical exam. deferred additional HPI, ROS, PE to primary provider. 86 male with history afib on coumadin, COPD, DM, HTN here with complaints of fall (unknown why but patient denies any pre-fall symptoms of dizziness, chest pain, shortness of breath, headache, palpitations) with head strike. NO LOC. Went to and referred in for CT. Patient has small abrasion left face, skin tear left forearm. He believes his tetanus is UTD. Will check INR/PT, CT head/cervical spine. VSS Reevaluation(s) Reevaluation #1: CT head and CT cervical spine are negative for any acute finding. INR is 2.8. Wound care was performed for patient skin tear and abrasion. Plan for discharge home. Medical Decision Making Medical Decision Making MDM Narrative: 86 male with history afib on coumadin, COPD, DM, HTN here with complaints of fall (unknown why but patient denies any pre-fall symptoms of dizziness, chest pain, shortness of breath, headache, palpitations) with head strike. NO LOC. Went to and referred in for CT. Patient has small abrasion left face, skin tear left forearm. He believes his tetanus is UTD. Will obtain CT head, CT cervical spine, check INR Wound care will be provided to the left ear abrasion and skin tear Differential Diagnosis Differential Diagnoses: The differential diagnosis associated with the presentation includes Contusion, abrasion ICH, skull fracture, cervical fracture, cervical strain Admission/Observation Consideration of admission/observation: Escalation of care including admission/observation considered No abnormality seen on CT head/CT cervical spine this suggest need for for consultation, additional imaging, transfer to tertiary care center Lab Data MDM Lab Attestation statement: I reviewed the patient's lab results. INR 2.8 Labs: Lab Results 11/19/22 Range/Units 14:26 PT 34.0 H (11.1-13.3) SEC INR 2.8 H (0.9-1.1) Independent Interpretation I performed an independent interpretation of an: CT Scan Interpretation: I independetely reviewed CT head and CT cervical spine agreed the radiology report Radiology Impression Discussion of test interpretation with radiology: I have reviewed the radiologist's reading. Radiologist Impression: [place] [id number] CT Scan Report Signed Patient: Florentino Bean MR#: [id number] : 1935 Acct:[id number] Age/Sex: 86 / M ADM Date: 11/19/22 Loc: .ED Attending Dr: Ordering Physician: Helga Oseguera NP Date of Service: 11/19/22 Procedure(s): CT head/brain wo IV con Accession Number(s): [id number] cc: Physician,Unknown ; Helga Oseguera NP~ EXAMINATION: CT HEAD WITHOUT CONTRAST CLINICAL INFORMATION: Fall head? COMPARISON: MRI brain from 01/19/2015 TECHNIQUE: Contiguous axial imaging was performed from the skull base to vertex without intravenous administration of contrast. This CT examination was performed using dose optimization techniques as appropriate, variously including the following: *Automated exposure control *Adjustment of mA and/or kV according to patient size (this includes techniques or standardized protocols for targeted exams where dose is matched to indication/reason for exam; i.e. extremities or head) *Use of iterative reconstruction technique DLP: 1260 mGy-cm FINDINGS: There is no evidence of acute intracranial hemorrhage or territorial infarction. Chronic white matter small vessel ischemic changes. Cerebral atrophy with commensurate No abnormal mass effect or midline shift is seen. Tavarez to white matter differentiation is well preserved. No extra-axial fluid collections are identified. There is no abnormal attenuation within the brain parenchyma. The osseous structures and soft tissues are normal. The mastoid air cells and visualized portions of the paranasal sinuses are well aerated. Vertebrobasilar atherosclerotic calcifications. ? CT/CT head/brain wo IV con IMPRESSION: 1.? No acute intracranial pathology. 2.? Chronic white matter small vessel ischemic changes. ? EXAMINATION: Noncontrast CT scan of the cervical spine. ? INDICATION: Fall ? COMPARISON: None. ? TECHNIQUE:? Helical, multidetector axial images were obtained from the occiput to the upper thorax. Coronal and sagittal reformats of the cervical spine were provided for interpretation. ? DLP: 1260 mGy-cm ? FINDINGS: No acute fractures or dislocations of the cervical spine are seen. Reversal of the normal cervical curvature. Multilevel degenerative changes. Anatomic alignment and positioning of the vertebral bodies and posterior elements is noted. The atlantoaxial joint and craniovertebral articulations are normal without evidence of subluxation. There is no prevertebral soft tissue swelling. ? Biapical pleural parenchymal scarring. Emphysematous changes. Carotid atherosclerosis. ? IMPRESSION: 1.? No acute visible fracture or dislocation. 2.? Reversal of the normal cervical curvature. 3.? Multilevel degenerative changes. ? Independent Historian Clinical information obtained from an independent historian. History obtained from or confirmed by: Spouse at the bedside Discharge Plan Discharge Clinical Impression: Skin tear of left forearm without complication, Abrasion of left ear Patient Disposition: Home, Self-Care Instructions: Abrasion (ED), Skin Tear (ED) Additional Instructions: Your INR today is 2.8 Keep the wound clean covered and dry Your CT scan shows no signs of bleeding Prescriptions: No Action metformin 500 mg tablet 500 mg PO DAILY Qty: 90 3RF fluticasone propion-salmeterol [Advair Diskus] 500-50 mcg/dose blister with device 1 ea inhalation BID Qty: 3 3RF glipizide 5 mg tablet See Rx Instructions .ROUTE .COMPLEX 90 Days Qty: 135 2RF Rx Instructions: 1 tab in the AM and 1/2 tab in the PM amlodipine 10 mg tablet 10 mg PO DAILY 90 Days Qty: 90 2RF Incruse Ellipta 62.5 mcg/actuation blister with device 1 inh PO BEDTIME Qty: 90 3RF losartan 50 mg tablet 50 mg PO DAILY Qty: 90 3RF warfarin 5 mg tablet 5 mg PO DAILY 90 Days Qty: 90 3RF Protocol: Dose Management Condition: Thursday (Week One) Dose/Route: 2.5 mg Instruction: 0.5 x 5 mg tablets Condition: Thursday Dose/Route: 5 mg Instruction: 1 x 5 mg tablet Condition: Thursday Dose/Route: 5 mg Instruction: 1 x 5 mg tablet Condition: Thursday Dose/Route: 2.5 mg Instruction: 0.5 x 5 mg tablets Condition: Dose/Route: 5 mg Instruction: 1 x 5 mg tablet Condition: Thursday Dose/Route: 2.5 mg Instruction: 0.5 x 5 mg tablets Condition: Thursday Dose/Route: 5 mg Instruction: 1 x 5 mg tablet Condition: Thursday (Week Two) Dose/Route: 2.5 mg Instruction: 0.5 x 5 mg tablets Condition: Thursday Dose/Route: 5 mg Instruction: 1 x 5 mg tablet Condition: Thursday Dose/Route: 5 mg Instruction: 1 x 5 mg tablet Condition: Thursday Dose/Route: 2.5 mg Instruction: 0.5 x 5 mg tablets Condition: Dose/Route: 5 mg Instruction: 1 x 5 mg tablet Condition: Thursday Dose/Route: 2.5 mg Instruction: 0.5 x 5 mg tablets Condition: Thursday Dose/Route: 5 mg Instruction: 1 x 5 mg tablet Protocol Text: Adjustment Start Date: Thursday10/29/22 INR Value: Pending INR Date: 10/29/22 Recheck Date: 11/26/22 Additional Instructions: cont reg dosing call with any changes in medications Rx Instructions: 5mg x4days/ 2.5mg x 3days - or as directed by anticoagulation clinic atorvastatin 40 mg tablet 40 mg PO DAILY Qty: 90 3RF hydrochlorothiazide 12.5 mg tablet 12.5 mg PO DAILY Qty: 90 3RF cholecalciferol (vitamin D3) 50 mcg (2,000 unit) capsule 50 mcg PO DAILY tolnaftate 1 % powder 1 appl topical TID (DME) lancets 28 gauge misc See Rx Instructions topical DAILY Qty: 100 Rx Instructions: As directed metoprolol tartrate 50 mg tablet 50 mg PO BID 90 Days Qty: 180 3RF albuterol sulfate 90 mcg/actuation HFA aerosol inhaler 2 puff inhalation Q4H PRN (Reason: shortness of breath or wheezing) Qty: 8.5 0RF mupirocin 2 % ointment 1 appl topical BID-TID ketoconazole 2 % cream topical BID ketoconazole 2 % shampoo topical tamsulosin 0.4 mg capsule 0.4 mg PO BEDTIME 90 Days Qty: 90 3RF ammonium lactate 12 % cream topical Referrals: Physician,Unknown J [Physician] - 1 week
[2022-11-19 14:44] LABS: INTERNATIONAL NORM RATIO 2.8 (0.9-1.1)
== END 2022-11-19 16:58 | disposition home or self-care (01) ==
LOC: HO.ED 16:55
PROVIDERS: Nurse Practitioner Family; Emergency Provider Student in an Organized Health Care Education/Training Program; PCP Internal Medicine
DX: S00.81XA Abrasion of other part of head, initial encounter (principal); S51.812A Laceration without foreign body of left forearm, initial encounter; W19.XXXA Unspecified fall, initial encounter; I10 Essential (primary) hypertension; E11.9 Type 2 diabetes mellitus without complications; E78.00 Pure hypercholesterolemia, unspecified; D64.9 Anemia, unspecified; Y93.9 Activity, unspecified; Y92.9 Unspecified place or not applicable; Y99.9 Unspecified external cause status; Z87.891 Personal history of nicotine dependence; Z89.611 Acquired absence of right leg above knee; Z79.01 Long term (current) use of anticoagulants; Z86.73 Personal history of transient ischemic attack (TIA), and cerebral infarction without residual deficits; Z79.84 Long term (current) use of oral hypoglycemic drugs; Z79.899 Other long term (current) drug therapy
CPT/HCPCS: 36415; 70450; 72125; 85610; 99282; 99284

== ENCOUNTER 2022-11-26 08:57 | Outpatient (AMB) | payer MEDICARE, OTHER, SELFPAY ==
--- NOTE | 2022-11-26 09:20 | MHC.OFFVISCO ---
Intake Intake Visit Reasons: Anticoagulation Allergies lisinopril [LISINOPRIL] Allergy (Unknown, Verified 11/26/22 09:12) HIVES Medication List - Last Reconciled 11/26/22 by Elinor Obrien RN albuterol sulfate 90 mcg/actuation 2 puffs inhalation Q4H PRN amlodipine 10 mg PO DAILY 90 days ammonium lactate 12% appl topical atorvastatin 40 mg PO DAILY cholecalciferol (vitamin D3) 50 mcg PO DAILY fluticasone propion-salmeterol 500-50 mcg/dose (Advair Diskus) 1 ea inhalation BID glipizide 1 tab in the AM and 1/2 tab in the PM 90 days hydrochlorothiazide 12.5 mg PO DAILY ketoconazole 2% topical ketoconazole 2% appl topical BID lancets As directed losartan 50 mg PO DAILY metformin 500 mg PO DAILY metoprolol tartrate 50 mg PO BID 90 days mupirocin 2% 1 appl topical BID-TID tamsulosin 0.4 mg PO BEDTIME 90 days tolnaftate 1% 1 appl topical TID umeclidinium 62.5 mcg/actuation (Incruse Ellipta) 1 inh PO BEDTIME warfarin 5 mg See Protocol PO DAILY 90 days Nursing Note INR - 3.6-? out of therapeutic range Medications and supplements reviewed Patient status: pt s/p fall on 11/19/22- abrasion to left forearm and left ear, hit head, went [place] urgent [place] [facility] [place] and cervical spine x ray dressing left forearm dry and intact Medications or supplements: no changes, not taking tylenol Diet: same Denies any signs and symptoms of bleeding or clotting or unusual bruising Bleeding, bruising, clotting discussed Nutritional guidance given: eat greens to lower inr, no reds for 2 days Dose: hold dose today then 2.5mg x 3, 5mg x 4 F/U INR Date : 2 weeks?? Patient verbalizing understanding of instructions given. pt amb with cane Anti-Coag Initial Assessment Social Hx Patient Tobacco Use Status: Former Tobacco user Tobacco use type: Cigarette alcohol intake: never Coding Level of Care Code Est Patient Level 1 Diagnoses Current use of anticoagulant therapy Z79.01 Assessment & Plan Assessment & Plan (1) Current use of anticoagulant therapy: Code(s): Z79.01 - snf (current) use of anticoagulants Category: Medical
[2022-11-26 09:22] LABS: Prothrombin Time Whole Bld POC 43.6 sec (11.1-13.5); ~PT, ~INR - Anti Coag Clinic 3.6 (0.9-1.1)
== END 2022-11-26 09:49 | disposition home or self-care (01) ==
LOC: HO.ACS 08:57
PROVIDERS: PCP Internal Medicine; Visit Provider Internal Medicine
DX: Z79.01 Long term (current) use of anticoagulants (principal)

== ENCOUNTER → 2022-11-26 08:57 | Outpatient (BNVA) | payer MEDICARE, OTHER, SELFPAY | PROVIDERS: PCP Internal Medicine; Visit Provider Internal Medicine | DX: I48.0 Paroxysmal atrial fibrillation (principal); Z79.01 Long term (current) use of anticoagulants; Z51.81 Encounter for therapeutic drug level monitoring | CPT/HCPCS: 85610; 99211 ==

== ENCOUNTER 2022-12-10 08:57 | Outpatient (AMB) | payer MEDICARE, OTHER, SELFPAY ==
[2022-12-10 09:05] LABS: Prothrombin Time Whole Bld POC 42.2 sec (11.1-13.5); ~PT, ~INR - Anti Coag Clinic 3.5 (0.9-1.1)
--- NOTE | 2022-12-10 09:05 | MHC.OFFVISCO ---
Intake Intake Visit Reasons: Anticoagulation Allergies lisinopril [LISINOPRIL] Allergy (Unknown, Verified 12/10/22 09:00) HIVES Medication List - Last Reconciled 12/10/22 by Elinor Obrien RN albuterol sulfate 90 mcg/actuation 2 puffs inhalation Q4H PRN amlodipine 10 mg PO DAILY 90 days ammonium lactate 12% appl topical atorvastatin 40 mg PO DAILY cholecalciferol (vitamin D3) 50 mcg PO DAILY fluticasone propion-salmeterol 500-50 mcg/dose (Advair Diskus) 1 ea inhalation BID glipizide 1 tab in the AM and 1/2 tab in the PM 90 days hydrochlorothiazide 12.5 mg PO DAILY ketoconazole 2% topical ketoconazole 2% appl topical BID lancets As directed losartan 50 mg PO DAILY metformin 500 mg PO DAILY metoprolol tartrate 50 mg PO BID 90 days mupirocin 2% 1 appl topical BID-TID tamsulosin 0.4 mg PO BEDTIME 90 days tolnaftate 1% 1 appl topical TID umeclidinium 62.5 mcg/actuation (Incruse Ellipta) 1 inh PO BEDTIME warfarin 5 mg See Protocol PO DAILY 90 days Nursing Note INR 3.5-? out of therapeutic range Medications and supplements reviewed Patient status: pt c.o increased stress Medications or supplements: no changes in medications Diet: same- has been eating increased greens/broccolli Denies any signs and symptoms of bleeding or clotting or unusual bruising Bleeding, bruising, clotting discussed Nutritional guidance given: eat greens to lower inr Dose: hold dose today then reduce weekly dosing to 2.5mg x 4, 5mg x 3 F/U INR Date : 2 weeks Patient verbalizing understanding of instructions given. 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
== END 2022-12-10 09:12 | disposition home or self-care (01) ==
LOC: HO.ACS 08:57
PROVIDERS: PCP Internal Medicine; Visit Provider Internal Medicine
DX: Z79.01 Long term (current) use of anticoagulants (principal)

== ENCOUNTER → 2022-12-10 08:57 | Outpatient (BNVA) | payer MEDICARE, OTHER, SELFPAY | PROVIDERS: PCP Internal Medicine; Visit Provider Internal Medicine | DX: I48.0 Paroxysmal atrial fibrillation (principal); Z79.01 Long term (current) use of anticoagulants; Z51.81 Encounter for therapeutic drug level monitoring | CPT/HCPCS: 85610; 99211 ==

== ENCOUNTER 2022-12-15 09:36 | Outpatient (AMB) | payer MEDICARE, OTHER, SELFPAY ==
[2022-12-15 09:40] VITALS: BP 140/54; PULSE 62; O2SAT 100; BMI 26.3
--- NOTE | 2022-12-15 09:40 | A.OFFPC_ITS ---
Vital Signs 12/15/22 09:40 Height 6 ft Weight 194 lb BMI 26.3 BP 140/54 H Blood Pressure Location Lt brachial Position Sitting Pulse 62 Pulse Source Pulse Oximeter Pulse Oximetry (%) 100 Oxygen Delivery Method Room Air Intake Visit Reasons: 3mth f/u Allergies lisinopril [LISINOPRIL] Allergy (Unknown, Verified 12/10/22 09:00) HIVES Medication List - Last Reconciled 12/15/22 by Flakita Juarez Po, albuterol sulfate 90 mcg/actuation 2 puffs inhalation Q4H PRN amlodipine 10 mg PO DAILY 90 days ammonium lactate 12% appl topical atorvastatin 40 mg PO DAILY cholecalciferol (vitamin D3) 50 mcg PO DAILY fluticasone propion-salmeterol 500-50 mcg/dose (Advair Diskus) 1 ea inhalation BID glipizide 1 tab in the AM and 1/2 tab in the PM 90 days hydrochlorothiazide 12.5 mg PO DAILY ketoconazole 2% topical ketoconazole 2% appl topical BID lancets As directed losartan 50 mg PO DAILY metformin 500 mg PO DAILY metoprolol tartrate 50 mg PO BID 90 days mupirocin 2% 1 appl topical BID-TID tamsulosin 0.4 mg PO BEDTIME 90 days tolnaftate 1% 1 appl topical TID umeclidinium 62.5 mcg/actuation (Incruse Ellipta) 1 inh PO BEDTIME warfarin 5 mg See Protocol PO DAILY 90 days Tobacco use date assessed: 05/15/22 Fall risk assessment: 1 Fall in past year Last assessed Fall Risk: 12/15/22 Dental Screening Dental Screen Date: 12/15/22 Did you have a dental visit in the last 12 months?: Yes Did you have a dental problem in the last 6 months where you did not have access to dental care?: No Was dental information given to patient?: Patient has dentist HPI 3mth f/u HPI Details 87-year-old male with diabetes mellitus coronary artery disease hypertension hypercholesterolemia COPD atrial fibrillation aortic stenosis renal insufficiency and history of right above knee amputation. Patient is here for follow-up. Last seen in August 2022. [facility] for fall denies any dizziness chest pain shortness of breath palpitations or headache. Patient had an the skin tear on the left forearm and abrasion on the left ear. October patient follows up with urology on tamsulosin for urgency. Cardiology eval October 2022 moderately severe aortic stenosis stable May 05 22. 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 Mother No problems noted. Social History Housing: House Alcohol intake: never Patient Tobacco Use Status: Former Tobacco user Tobacco use type: Cigarette Years Smoked: quit 1987 e-Cigarette/Vaping Use: Never Used Second Hand Smoke Exposure: No service: No Current occupational status: retired Cognitive needs: Yes (cane/walker/wheelchair) Hearing needs: Yes Vision needs: Yes Questionnaire Thrive Questionnaire Date Thrive assessed: 05/15/22 AUDIT C Alcohol Use Questionnaire (AUDIT-C) 1. How often do you have a drink containing alcohol?: Never 2. How many drinks containing alcohol do you have on a typical day when you are drinking?: 1 or 2 (0) 3. How often do you have six or more drinks on one occasion?: Never Total Score: 0 Score Reviewed/Action Taken: No ANDREY-7 AMB Questionnaire ANDREY-7 Date ANDREY - 7 assessed: 05/15/22 Source: Developed by Drs. Omega Negron, Shannan Couch, Armond Ceballos and colleagues, with an educational klaudia from [employer]. Physical exam (Primary Care) Vital Signs: Last Vital Signs Pulse 62 12/15/22 09:40 BP 140/54 H 12/15/22 09:40 Pulse Ox 100 12/15/22 09:40 Oxygen Delivery Method Room Air 12/15/22 09:40 BMI result Body Mass Index 26.3 Tobacco/Smoking Status: Tobacco use Status Tobacco use date assessed 05/15/22 12/15/22 09:40 Patient Tobacco Use Status Former Tobacco user 12/15/22 09:40 Tobacco use type Cigarette 12/15/22 09:40 e-Cigarette/Vaping Use Never Used 12/15/22 09:40 Thrive Assessment: Date of Thrive Assessment Date Thrive assessed 05/15/22 12/15/22 09:40 Const General: alert; No acute distress Eyes Conjunctivae: conjunctivae normal Resp Auscultation: clear to auscultation bilaterally Cardio Rate: regular rate Rhythm: regular rhythm GI Inspection: Yes normal to inspection Extrem Other: Right above the knee amputation with prosthesis, left normal Office Procedures Flu Questionnaire Does the patient have a severe egg allergy?: No Does the patient have severe life threatening allergies?: No Does the patient have a fever or illness today?: No Has the patient ever had Guillain-Purdys Syndrome?: No Has the patient ever had any past reaction to a flu shot?: No Results AMB Hemoglobin A1c AMB Hemoglobin A1c 5.8 % Last Edit by PATRICK Morley on 12/15/22 09:49 Immunizations flu vacc [id number] 6mos up(PF) 60 mcg(15 mcgx4)/0.5 mL IM syringe Performing Provider: Flakita Stewart MD [facility] Documented (not given) by: PATRICK Morley on 12/15/22 09:51 Reason Not Given: Patient Refused Results Reviewed Results Reviewed: Laboratory Last Values Hgb A1c (Clinic) 5.8 % (4.0-6.0) 12/15/22 09:48 Assessment and Plan Assessment & Plan (1) Type 2 diabetes mellitus with hyperglycemia: Comment: Dr. Miguel Code(s): E11.65 - Type 2 diabetes mellitus with hyperglycemia Qualifiers: Diabetes mellitus assistant terminal manager insulin use: without intermediate use Qualified Code(s): E11.65 - Type 2 diabetes mellitus with hyperglycemia Plan: Decrease the amount of carbohydrate intake, pasta, bread, rice and potatoes are all sugar and that is aside from all the sweet stuff, remember that fruits are good but they are Sweet also. Hemoglobin A1c goal of less than 7 0.0 patient on glipizide and metformin (2) Coronary artery disease: Comment: An STEMI December [address]CA stent [address] Chaudhari Code(s): I25.10 - Atherosclerotic heart disease of [place] coronary artery without angina pectoris Qualifiers: Associated angina: without angina Coronary Disease-Associated Artery/Lesion type: [place] artery [place] vs. transplanted heart: [place] heart Qualified Code(s): I25.10 - Atherosclerotic heart disease of [place] coronary artery without angina pectoris Plan: Control the cholesterol, weight, blood pressure, diabetes (3) Hypertension: Code(s): I10 - Essential (primary) hypertension Qualifiers: Hypertension type: essential hypertension Qualified Code(s): I10 - Essential (primary) hypertension Plan: Continue with blood pressure medication. Decrease salt intake and exercise patient takes metoprolol 50 mg twice a day losartan 50 mg once a day hydrochlorothiazide 12.5 mg once a day and amlodipine 10 mg once a day (4) Hypercholesterolemia: Code(s): E78.00 - Pure hypercholesterolemia, unspecified Plan: Avoid fried foods, chicken skin, eggs, butter margarine, pastries and meat. Be it pork or beef they have a lot of cholesterol May 2022 last blood work LDL goal of less than 70 and triglyceride of less than 150. Patient on atorvastatin 40 mg once a day (5) COPD (chronic obstructive pulmonary disease): Code(s): J44.9 - Chronic obstructive pulmonary disease, unspecified Qualifiers: COPD type: emphysema Emphysema type: unspecified Qualified Code(s): J43.9 - Emphysema, unspecified Plan: Continue with inhaler (6) Paroxysmal atrial fibrillation: Comment: December 2012 Code(s): I48.0 - Paroxysmal atrial fibrillation Plan: Continue with anticoagulation with Coumadin (7) Aortic stenosis: Comment: April 2021 moderate 1.2 cm squared March 2022he left ventricular systolic function is low normal. The calculated ejection fraction is 54% by biplane method. - The basal inferior and basal inferolateral segments are akinetic. - There is moderate to severe aortic valve stenosis. 1.0 cm2 October 2022 1.11 cm squared Code(s): I35.0 - Nonrheumatic aortic (valve) stenosis Plan: Patient is being followed up by Cardiology October 2022 last echocardiogram Orders: Orders Influenza [id number] Immunization Today Z23 - Encounter for immunization AMB Hemoglobin A1c Today E11.65 - Type 2 diabetes mellitus with hyperglycemia Medications: Refilled hydrochlorothiazide 12.5 mg PO DAILY 90 tabs 3RF Coding Level of Care Code Est Pt Level 4 (33611) Diagnoses Type 2 diabetes mellitus with hyperglycemia, without long-term current use of insulin E11.65 Diabetes mellitus assistant terminal manager insulin use: without intermediate use Coronary artery disease involving [place] coronary artery of [place] heart without angina pectoris I25.10 Associated angina: without angina Coronary Disease-Associated Artery/Lesion type: [place] artery [place] vs. transplanted heart: [place] heart Essential hypertension I10 Hypertension type: essential hypertension Hypercholesterolemia E78.00 Pulmonary emphysema, unspecified emphysema type J43.9 COPD type: emphysema Emphysema type: unspecified Paroxysmal atrial fibrillation I48.0 Aortic stenosis I35.0
== END 2022-12-15 10:08 | disposition home or self-care (01) ==
PROVIDERS: PCP Internal Medicine; Visit Provider Internal Medicine
DX: E11.65 Type 2 diabetes mellitus with hyperglycemia (principal); J43.9 Emphysema, unspecified; I48.0 Paroxysmal atrial fibrillation; I25.10 Atherosclerotic heart disease of native coronary artery without angina pectoris; I10 Essential (primary) hypertension; E78.00 Pure hypercholesterolemia, unspecified; I35.0 Nonrheumatic aortic (valve) stenosis
CPT/HCPCS: 83036; 99214

== ENCOUNTER 2022-12-24 08:48 | Outpatient (AMB) | payer MEDICARE, OTHER, SELFPAY ==
--- NOTE | 2022-12-24 08:55 | MHC.OFFVISCO ---
Intake Intake Visit Reasons: Anticoagulation Allergies lisinopril [LISINOPRIL] Allergy (Unknown, Verified 12/24/22 08:50) HIVES Medication List - Last Reconciled 12/24/22 by Elinor Obrien RN albuterol sulfate 90 mcg/actuation 2 puffs inhalation Q4H PRN amlodipine 10 mg PO DAILY 90 days ammonium lactate 12% appl topical atorvastatin 40 mg PO DAILY cholecalciferol (vitamin D3) 50 mcg PO DAILY fluticasone propion-salmeterol 500-50 mcg/dose (Advair Diskus) 1 ea inhalation BID glipizide 1 tab in the AM and 1/2 tab in the PM 90 days hydrochlorothiazide 12.5 mg PO DAILY ketoconazole 2% topical ketoconazole 2% appl topical BID lancets As directed losartan 50 mg PO DAILY metformin 500 mg PO DAILY metoprolol tartrate 50 mg PO BID 90 days mupirocin 2% 1 appl topical BID-TID tamsulosin 0.4 mg PO BEDTIME 90 days tolnaftate 1% 1 appl topical TID umeclidinium 62.5 mcg/actuation (Incruse Ellipta) 1 inh PO BEDTIME warfarin 5 mg See Protocol PO DAILY 90 days Nursing Note INR: 2.6- in therapeutic range Medications and supplements reviewed No changes in health, diet, medications, or supplements, Denies any signs and symptoms of bleeding or bruising or clotting. Bleeding, bruising, clotting discussed Nutritional guidance given Dose: pt vague on prev dosing, reports diff following lower dosing and requests 'regular' dose schedule 2.5mg x 3 , 5mg x 4 F/U INR: 2 weeks Patient verbalizes understanding of instructions given pt amb with cane Anti-Coag Initial Assessment Social Hx Patient Tobacco Use Status: Former Tobacco user Tobacco use type: Cigarette alcohol intake: never Coding Level of Care Code Est Patient Level 1 Diagnoses Current use of anticoagulant therapy Z79.01 Results AMB INR Fingerstick AMB INR Fingerstick 2.6 Last Edit by Elinor Obrien RN on 12/24/22 08:56 Assessment & Plan Assessment & Plan (1) Current use of anticoagulant therapy: Code(s): Z79.01 - 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
== END 2022-12-24 09:02 | disposition home or self-care (01) ==
LOC: HO.ACS 08:48
PROVIDERS: PCP Internal Medicine; Visit Provider Internal Medicine
DX: Z79.01 Long term (current) use of anticoagulants (principal)

== ENCOUNTER → 2022-12-24 08:48 | Outpatient (BNVA) | payer MEDICARE, OTHER, SELFPAY | PROVIDERS: PCP Internal Medicine; Visit Provider Internal Medicine | DX: I48.0 Paroxysmal atrial fibrillation (principal); Z79.01 Long term (current) use of anticoagulants; Z51.81 Encounter for therapeutic drug level monitoring | CPT/HCPCS: 85610; 99211 ==

== ENCOUNTER 2023-01-07 09:09 | Outpatient (AMB) | payer MEDICARE, OTHER, SELFPAY ==
[2023-01-07 09:20] LABS: Prothrombin Time Whole Bld POC 34.1 sec (11.1-13.5); ~PT, ~INR - Anti Coag Clinic 2.8 (0.9-1.1)
--- NOTE | 2023-01-07 09:26 | MHC.OFFVISCO ---
Intake Intake Visit Reasons: Anticoagulation Allergies lisinopril [LISINOPRIL] Allergy (Unknown, Verified 01/07/23 09:13) HIVES Medication List - Last Reconciled 01/07/23 by Zeenat Ball RN albuterol sulfate 90 mcg/actuation 2 puffs inhalation Q4H PRN amlodipine 10 mg PO DAILY 90 days ammonium lactate 12% appl topical atorvastatin 40 mg PO DAILY cholecalciferol (vitamin D3) 50 mcg PO DAILY fluticasone propion-salmeterol 500-50 mcg/dose (Advair Diskus) 1 ea inhalation BID glipizide 1 tab in the AM and 1/2 tab in the PM 90 days hydrochlorothiazide 12.5 mg PO DAILY ketoconazole 2% topical ketoconazole 2% appl topical BID lancets As directed losartan 50 mg PO DAILY metformin 500 mg PO DAILY metoprolol tartrate 50 mg PO BID 90 days mupirocin 2% 1 appl topical BID-TID tamsulosin 0.4 mg PO BEDTIME 90 days tolnaftate 1% 1 appl topical TID umeclidinium 62.5 mcg/actuation (Incruse Ellipta) 1 inh PO BEDTIME warfarin 5 mg See Protocol PO DAILY 90 days Nursing Note NO CP,SOB,DIET/MED CHANGES,FALLS OR SX OF BLEEDING. CONTINUE PRESENT DOSE AND FOLLOW-UP IN 4 WEEKS. GOOD UNDERSTANDING OF DOSING INSTR. PT.HAD COVID VACCINE ON 01/05 Anti-Coag Initial Assessment Social Hx Patient Tobacco Use Status: Former Tobacco user Tobacco use type: Cigarette alcohol intake: never Coding Level of Care Code Est Patient Level 1 Diagnoses Current use of anticoagulant therapy Z79.01 Results AMB INR Fingerstick AMB INR Fingerstick 2.8 Last Edit by Zeenat Ball RN on 01/07/23 09:20 Assessment & Plan Assessment & Plan (1) Current use of anticoagulant therapy: Code(s): Z79.01 - prison (current) use of anticoagulants Category: Medical
== END 2023-01-07 09:30 | disposition home or self-care (01) ==
LOC: HO.ACS 09:09
PROVIDERS: PCP Internal Medicine; Visit Provider Internal Medicine
DX: Z79.01 Long term (current) use of anticoagulants (principal)

== ENCOUNTER → 2023-01-07 09:09 | Outpatient (BNVA) | payer MEDICARE, OTHER, SELFPAY | PROVIDERS: PCP Internal Medicine; Visit Provider Internal Medicine | DX: I48.0 Paroxysmal atrial fibrillation (principal); Z79.01 Long term (current) use of anticoagulants; Z51.81 Encounter for therapeutic drug level monitoring | CPT/HCPCS: 85610; 99211 ==

== ENCOUNTER 2023-02-04 09:00 | Outpatient (AMB) | payer MEDICARE, OTHER, SELFPAY ==
--- NOTE | 2023-02-04 09:09 | MHC.OFFVISCO ---
Intake Intake Visit Reasons: Anticoagulation Allergies lisinopril [LISINOPRIL] Allergy (Unknown, Verified 02/04/23 09:04) HIVES Medication List - Last Reconciled 02/04/23 by Elinor Obrien RN albuterol sulfate 90 mcg/actuation 2 puffs inhalation Q4H PRN amlodipine 10 mg PO DAILY 90 days ammonium lactate 12% appl topical atorvastatin 40 mg PO DAILY cholecalciferol (vitamin D3) 50 mcg PO DAILY fluticasone propion-salmeterol 500-50 mcg/dose (Advair Diskus) 1 ea inhalation BID glipizide 1 tab in the AM and 1/2 tab in the PM 90 days hydrochlorothiazide 12.5 mg PO DAILY ketoconazole 2% topical ketoconazole 2% appl topical BID lancets As directed losartan 50 mg PO DAILY metformin 500 mg PO DAILY metoprolol tartrate 50 mg PO BID 90 days mupirocin 2% 1 appl topical BID-TID tamsulosin 0.4 mg PO BEDTIME 90 days tolnaftate 1% 1 appl topical TID umeclidinium 62.5 mcg/actuation (Incruse Ellipta) 1 inh PO BEDTIME warfarin 5 mg See Protocol PO DAILY 90 days Nursing Note INR 3.8-?? out of therapeutic range of 2-3 Medications and supplements reviewed Patient status: no c.o, denies etoh, decreased appetite, increased stress or tylenol usage Medications or supplements: to changes in medications Diet: same Denies any signs and symptoms of bleeding or clotting or unusual bruising Bleeding, bruising, clotting discussed Nutritional guidance given: eat greens to lower, no reds for 2-3 days Dose: hold warfarin today then cont reg dosing- 2,5ng x 3, 5mg x 4 F/U INR Date : 2 weeks? Patient verbalizing understanding of instructions given. Anti-Coag Initial Assessment Social Hx Patient Tobacco Use Status: Former Tobacco user Tobacco use type: Cigarette alcohol intake: never Coding Level of Care Code Est Patient Level 1
[2023-02-04 09:10] LABS: Prothrombin Time Whole Bld POC 45.1 sec (11.1-13.5); ~PT, ~INR - Anti Coag Clinic 3.8 (0.9-1.1)
== END 2023-02-04 09:32 | disposition home or self-care (01) ==
LOC: HO.ACS 09:00
PROVIDERS: PCP Internal Medicine; Visit Provider Internal Medicine
DX: Z79.01 Long term (current) use of anticoagulants (principal)

== ENCOUNTER → 2023-02-04 09:00 | Outpatient (BNVA) | payer MEDICARE, OTHER, SELFPAY | PROVIDERS: PCP Internal Medicine; Visit Provider Internal Medicine | DX: I48.0 Paroxysmal atrial fibrillation (principal); Z79.01 Long term (current) use of anticoagulants; Z51.81 Encounter for therapeutic drug level monitoring | CPT/HCPCS: 85610; 99211 ==

== ENCOUNTER 2023-02-19 09:42 | Outpatient (AMB) | payer MEDICARE, OTHER, SELFPAY ==
[2023-02-19 10:00] LABS: ~PT, ~INR - Anti Coag Clinic 3.6 (0.9-1.1)
--- NOTE | 2023-02-19 10:09 | MHC.OFFVISCO ---
Intake Intake Visit Reasons: Anticoagulation Allergies lisinopril [LISINOPRIL] Allergy (Unknown, Verified 02/19/23 09:54) HIVES Medication List - Last Reconciled 02/19/23 by Mine Ruby RN albuterol sulfate 90 mcg/actuation 2 puffs inhalation Q4H PRN amlodipine 10 mg PO DAILY 90 days ammonium lactate 12% appl topical atorvastatin 40 mg PO DAILY cholecalciferol (vitamin D3) 50 mcg PO DAILY fluticasone propion-salmeterol 500-50 mcg/dose (Advair Diskus) 1 ea inhalation BID glipizide 1 tab in the AM and 1/2 tab in the PM 90 days hydrochlorothiazide 12.5 mg PO DAILY ketoconazole 2% topical ketoconazole 2% appl topical BID lancets As directed losartan 50 mg PO DAILY metformin 500 mg PO DAILY metoprolol tartrate 50 mg PO BID 90 days mupirocin 2% 1 appl topical BID-TID tamsulosin 0.4 mg PO BEDTIME 90 days tolnaftate 1% 1 appl topical TID umeclidinium 62.5 mcg/actuation (Incruse Ellipta) 1 inh PO BEDTIME warfarin 5 mg See Protocol PO DAILY 90 days Nursing Note INR 3.6? out of therapeutic range Medications and supplements reviewed Patient status: ILL, HAS A SORE TOE THAT HE STUBBED, SOME STRESS WITH ILL , NEEDS MORE ASSISTANCE AT HOME -STATED $$ FROM [facility] COSTING SO MUCH Medications or supplements: NO CHANGES Diet: LITTLE LESS, NOT COOKING MUCH Denies any signs and symptoms of bleeding or clotting or unusual bruising Bleeding, bruising, clotting discussed Nutritional guidance given: REVIEW FOOD LIST WEEKLY, Dose: DECREASE DOSE TO 2.5MG X 4 DAYS/ 5MG X 3 DAYS F/U INR Date : 2 WEEKS?? Patient verbalizing understanding of instructions given. Anti-Coag Initial Assessment Social Hx Patient Tobacco Use Status: Former Tobacco user Tobacco use type: Cigarette alcohol intake: never Coding Level of Care Code Est Patient Level 1 Diagnoses Current use of anticoagulant therapy Z79.01 Assessment & Plan Assessment & Plan (1) Current use of anticoagulant therapy: Code(s): Z79.01 - [facility] (current) use of anticoagulants Category: Medical
== END 2023-02-19 10:19 | disposition home or self-care (01) ==
LOC: HO.ACS 09:43
PROVIDERS: PCP Internal Medicine; Visit Provider Internal Medicine
DX: Z79.01 Long term (current) use of anticoagulants (principal)

== ENCOUNTER → 2023-02-19 09:42 | Outpatient (BNVA) | payer MEDICARE, OTHER, SELFPAY | PROVIDERS: PCP Internal Medicine; Visit Provider Internal Medicine | DX: I48.0 Paroxysmal atrial fibrillation (principal); Z79.01 Long term (current) use of anticoagulants; Z51.81 Encounter for therapeutic drug level monitoring | CPT/HCPCS: 85610; 99211 ==

== ENCOUNTER 2023-03-05 11:13 | Outpatient (AMB) | payer MEDICARE, OTHER, SELFPAY ==
[2023-03-05 11:20] LABS: Prothrombin Time Whole Bld POC 25.9 sec (11.1-13.5); ~PT, ~INR - Anti Coag Clinic 2.2 (0.9-1.1)
--- NOTE | 2023-03-05 11:58 | MHC.OFFVISCO ---
Intake Intake Visit Reasons: Anticoagulation Allergies lisinopril [LISINOPRIL] Allergy (Unknown, Verified 03/05/23 11:15) HIVES Medication List - Last Reconciled 03/05/23 by Mine Ruby RN albuterol sulfate 90 mcg/actuation 2 puffs inhalation Q4H PRN amlodipine 10 mg PO DAILY 90 days ammonium lactate 12% appl topical atorvastatin 40 mg PO DAILY cholecalciferol (vitamin D3) 50 mcg PO DAILY fluticasone propion-salmeterol 500-50 mcg/dose (Advair Diskus) 1 ea inhalation BID glipizide 1 tab in the AM and 1/2 tab in the PM 90 days hydrochlorothiazide 12.5 mg PO DAILY ketoconazole 2% topical ketoconazole 2% appl topical BID lancets As directed losartan 50 mg PO DAILY metformin 500 mg PO DAILY metoprolol tartrate 50 mg PO BID 90 days mupirocin 2% 1 appl topical BID-TID tamsulosin 0.4 mg PO BEDTIME 90 days tolnaftate 1% 1 appl topical TID umeclidinium 62.5 mcg/actuation (Incruse Ellipta) 1 inh PO BEDTIME warfarin 5 mg See Protocol PO DAILY 90 days Nursing Note INR: 2.2 in therapeutic range- PREVIOUS VISIT WARFARIN WAS DECREASED DUE TO TRENDING HIGHER TO 5MG MWF/ 2.5MG X 4 DAYS TODAY THE PT HAD A TOENAIL REMOVED AND NUMBING WEARING OFF, BROUGHT TO CAR VIA WHEEL CHAIR Medications and supplements reviewed- TODAY TO START CEPHALEXIN 500MG PO BID TODAY X 10 DAYS - CAN RAISE THE INR AND RISK OF BLEEDING, AND MAY TAKE TYLENOL FOR PAIN TODAY ALSO Denies any signs and symptoms of bleeding or bruising or clotting. Bleeding, bruising, clotting discussed Nutritional guidance given Dose: KEEP SAME DOSE THIS WEEK 5MG X 3 DAYS/ 2.5MG X 4 DAYS THEN DECREASE NEXT WK DOSE TH 5MG X 1 DAY/ 2.5MG X 6 DAY, THEN RESUME USUAL DOSE F/U INR: 03/18/22 Patient verbalizes understanding of instructions given Anti-Coag Initial Assessment Social Hx Patient Tobacco Use Status: Former Tobacco user Tobacco use type: Cigarette alcohol intake: never Coding Level of Care Code Est Patient Level 1 Diagnoses Current use of anticoagulant therapy Z79.01 Assessment & Plan Assessment & Plan (1) Current use of anticoagulant therapy: Code(s): 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
== END 2023-03-05 12:07 | disposition home or self-care (01) ==
LOC: HO.ACS 11:13
PROVIDERS: PCP Internal Medicine; Visit Provider Internal Medicine
DX: Z79.01 Long term (current) use of anticoagulants (principal)

== ENCOUNTER → 2023-03-05 11:13 | Outpatient (BNVA) | payer MEDICARE, OTHER, SELFPAY | PROVIDERS: PCP Internal Medicine; Visit Provider Internal Medicine | DX: I48.0 Paroxysmal atrial fibrillation (principal); Z51.81 Encounter for therapeutic drug level monitoring; Z79.01 Long term (current) use of anticoagulants | CPT/HCPCS: 85610; 99211 ==

== ENCOUNTER 2023-03-18 10:25 | Outpatient (AMB) | payer MEDICARE, OTHER, SELFPAY ==
--- NOTE | 2023-03-18 10:42 | MHC.OFFVISCO ---
Intake Intake Visit Reasons: Anticoagulation Allergies lisinopril [LISINOPRIL] Allergy (Unknown, Verified 03/18/23 10:26) HIVES Medication List - Last Reconciled 03/18/23 by Zeenat Ball RN albuterol sulfate 90 mcg/actuation 2 puffs inhalation Q4H PRN amlodipine 10 mg PO DAILY 90 days ammonium lactate 12% appl topical atorvastatin 40 mg PO DAILY cholecalciferol (vitamin D3) 50 mcg PO DAILY fluticasone propion-salmeterol 500-50 mcg/dose (Advair Diskus) 1 ea inhalation BID glipizide 1 tab in the AM and 1/2 tab in the PM 90 days hydrochlorothiazide 12.5 mg PO DAILY ketoconazole 2% topical ketoconazole 2% appl topical BID lancets As directed losartan 50 mg PO DAILY metformin 500 mg PO DAILY metoprolol tartrate 50 mg PO BID 90 days mupirocin 2% 1 appl topical BID-TID tamsulosin 0.4 mg PO BEDTIME 90 days tolnaftate 1% 1 appl topical TID umeclidinium 62.5 mcg/actuation (Incruse Ellipta) 1 inh PO BEDTIME warfarin 5 mg See Protocol PO DAILY 90 days Nursing Note PT.WILL FINISH DOXYCYCLINE TOMORROW. NO CP,SOB,DIET CHANGES,FALLS OR SX OF BLEEDING. RESUME 5MGM X3 AND 2.5MGM X4 AND FOLLOW-UP IN 2 WEEKS. GOOD UNDERSTANDING OF DOSING INSTR. Anti-Coag Initial Assessment Social Hx Patient Tobacco Use Status: Former Tobacco user Tobacco use type: Cigarette alcohol intake: never Coding Level of Care Code Est Patient Level 1 Diagnoses Current use of anticoagulant therapy Z79.01 Assessment & Plan Assessment & Plan (1) Current use of anticoagulant therapy: Code(s): Z79.01 - [facility] (current) use of anticoagulants Category: Medical
== END 2023-03-18 10:44 | disposition home or self-care (01) ==
LOC: HO.ACS 10:25
PROVIDERS: PCP Internal Medicine; Visit Provider Internal Medicine
DX: Z79.01 Long term (current) use of anticoagulants (principal)

== ENCOUNTER → 2023-03-18 10:25 | Outpatient (BNVA) | payer MEDICARE, OTHER, SELFPAY | PROVIDERS: PCP Internal Medicine; Visit Provider Internal Medicine | DX: I48.0 Paroxysmal atrial fibrillation (principal); Z51.81 Encounter for therapeutic drug level monitoring; Z79.01 Long term (current) use of anticoagulants | CPT/HCPCS: 85610; 99211 ==

== ENCOUNTER 2023-04-01 09:27 | Outpatient (AMB) | payer MEDICARE, OTHER, SELFPAY ==
[2023-04-01 09:34] LABS: Prothrombin Time Whole Bld POC 34.4 sec (11.1-13.5); ~PT, ~INR - Anti Coag Clinic 2.9 (0.9-1.1)
--- NOTE | 2023-04-01 09:45 | MHC.OFFVISCO ---
Intake Intake Visit Reasons: Anticoagulation Allergies lisinopril [LISINOPRIL] Allergy (Unknown, Verified 04/01/23 09:28) HIVES Medication List - Last Reconciled 04/01/23 by Zeenat Ball RN albuterol sulfate 90 mcg/actuation 2 puffs inhalation Q4H PRN amlodipine 10 mg PO DAILY 90 days ammonium lactate 12% appl topical atorvastatin 40 mg PO DAILY cholecalciferol (vitamin D3) 50 mcg PO DAILY fluticasone propion-salmeterol 500-50 mcg/dose (Advair Diskus) 1 ea inhalation BID glipizide 1 tab in the AM and 1/2 tab in the PM 90 days hydrochlorothiazide 12.5 mg PO DAILY ketoconazole 2% topical ketoconazole 2% appl topical BID lancets As directed losartan 50 mg PO DAILY metformin 500 mg PO DAILY metoprolol tartrate 50 mg PO BID 90 days mupirocin 2% 1 appl topical BID-TID tamsulosin 0.4 mg PO BEDTIME 90 days tolnaftate 1% 1 appl topical TID umeclidinium 62.5 mcg/actuation (Incruse Ellipta) 1 inh PO BEDTIME warfarin 5 mg See Protocol PO DAILY 90 days Nursing Note NO CP,SOB,DIET/MED CHANGES,FALLS OR SX OF BLEEDFING. CONTIUNUE SAME DOSE AND FOLLOWUP IN 3 WEEKS. GOOD UNDERSTANDING OF DOSING INSTR. Anti-Coag Initial Assessment Social Hx Patient Tobacco Use Status: Former Tobacco user Tobacco use type: Cigarette alcohol intake: never Coding Level of Care Code Est Patient Level 1 Diagnoses Current use of anticoagulant therapy Z79.01 Assessment & Plan Assessment & Plan (1) Current use of anticoagulant therapy: Code(s): Z79.01 - skilled nursing (current) use of anticoagulants Category: Medical
== END 2023-04-01 09:49 | disposition home or self-care (01) ==
LOC: HO.ACS 09:27
PROVIDERS: PCP Internal Medicine; Visit Provider Internal Medicine
DX: Z79.01 Long term (current) use of anticoagulants (principal)

== ENCOUNTER → 2023-04-01 09:27 | Outpatient (BNVA) | payer MEDICARE, OTHER, SELFPAY | PROVIDERS: PCP Internal Medicine; Visit Provider Internal Medicine | DX: I48.0 Paroxysmal atrial fibrillation (principal); Z79.01 Long term (current) use of anticoagulants; Z51.81 Encounter for therapeutic drug level monitoring | CPT/HCPCS: 85610; 99211 ==

== ENCOUNTER 2023-04-09 09:37 | Outpatient (AMB) | payer MEDICARE, OTHER, SELFPAY ==
[2023-04-09 09:38] VITALS: BP 146/64; PULSE 57; O2SAT 99; BMI 26.7
--- NOTE | 2023-04-09 09:38 | MHC.PC.OV ---
Vital Signs 04/09/23 09:38 Height 6 ft Weight 197 lb BMI 26.7 BP 146/64 H Blood Pressure Location Lt brachial Position Sitting Pulse 57 Pulse Source Pulse Oximeter Pulse Oximetry (%) 99 Oxygen Delivery Method Room Air Intake Visit Reasons: DM Mri Tech Required: No Allergies lisinopril [LISINOPRIL] Allergy (Unknown, Verified 04/09/23 09:39) HIVES Medication List - Last Reconciled 04/09/23 by Flakita Stewart MD albuterol sulfate 90 mcg/actuation 2 puffs inhalation Q4H PRN amlodipine 10 mg PO DAILY 90 days ammonium lactate 12% appl topical atorvastatin 40 mg PO DAILY cholecalciferol (vitamin D3) 50 mcg PO DAILY fluticasone propion-salmeterol 500-50 mcg/dose (Wixela Inhub) 1 inh inhalation BID glipizide 1 tab in the AM and 1/2 tab in the PM 90 days hydrochlorothiazide 12.5 mg PO DAILY ketoconazole 2% topical ketoconazole 2% appl topical BID lancets As directed losartan 50 mg PO DAILY metformin 500 mg PO DAILY metoprolol tartrate 50 mg PO BID 90 days mupirocin 2% 1 appl topical BID-TID tamsulosin 0.4 mg PO BEDTIME 90 days tolnaftate 1% 1 appl topical TID umeclidinium 62.5 mcg/actuation (Incruse Ellipta) 1 inh PO BEDTIME warfarin 5 mg See Protocol PO DAILY 90 days Tobacco use date assessed: 04/09/23 Fall risk assessment: No Falls in past year Last assessed Fall Risk: 04/09/23 Dental Screening Dental Screen Date: 04/09/23 HPI DM HPI Details 87-year-old male with diabetes mellitus coronary artery disease hypertension hypercholesterolemia COPD atrial fibrillation and aortic stenosis coming in for follow-up. Last seen in December 2022 is sick. BP at home BP 130/80. 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 Mother No problems noted. Social History Housing: House Alcohol intake: never Patient Tobacco Use Status: Former Tobacco user Tobacco use type: Cigarette Years Smoked: quit 1987 e-Cigarette/Vaping Use: Never Used Second Hand Smoke Exposure: No service: No Current occupational status: retired Cognitive needs: Yes (cane/walker/wheelchair) Hearing needs: Yes Vision needs: Yes Questionnaire Thrive Questionnaire Date Thrive assessed: 05/15/22 AUDIT C Alcohol Use Questionnaire (AUDIT-C) 1. How often do you have a drink containing alcohol?: Never 2. How many drinks containing alcohol do you have on a typical day when you are drinking?: 1 or 2 (0) 3. How often do you have six or more drinks on one occasion?: Never Total Score: 0 Score Reviewed/Action Taken: No ANDREY-7 AMB Questionnaire ANDREY-7 Date ANDREY - 7 assessed: 04/09/23 Source: Developed by Drs. Omega Negron, Shannan Couch, Armond Ceballos and colleagues, with an educational klaudia from [employer]. Physical exam (Primary Care) Vital Signs: Last Vital Signs Pulse 57 04/09/23 09:38 BP 146/64 H 04/09/23 09:38 Pulse Ox 99 04/09/23 09:38 Oxygen Delivery Method Room Air 04/09/23 09:38 Care Plan Goal for BP management: L eye ectropion BMI result Body Mass Index 26.7 Tobacco/Smoking Status: Tobacco use Status Tobacco use date assessed 04/09/23 04/09/23 09:48 Patient Tobacco Use Status Former Tobacco user 04/09/23 09:48 Tobacco use type Cigarette 04/09/23 09:48 e-Cigarette/Vaping Use Never Used 04/09/23 09:48 Thrive Assessment: Date of Thrive Assessment Date Thrive assessed 05/15/22 04/09/23 09:48 Const General: alert; No acute distress Eyes Conjunctivae: conjunctivae normal Resp Auscultation: clear to auscultation bilaterally Cardio Rate: regular rate Rhythm: regular rhythm GI Inspection: Yes normal to inspection Extrem General: Yes normal to inspection and No edema Results AMB Hemoglobin A1c AMB Hemoglobin A1c 6.2 % Last Edit by PATRICK Morley on 04/09/23 09:52 Results Reviewed Results Reviewed: Laboratory Last Values Hgb A1c (Clinic) 6.2 % (4.0-6.0) H 04/09/23 09:38 Assessment and Plan Assessment & Plan (1) Type 2 diabetes mellitus with hyperglycemia: Comment: Dr. Miguel Code(s): E11.65 - Type 2 diabetes mellitus with hyperglycemia Qualifiers: Diabetes mellitus nursing home insulin use: without nursing home use Qualified Code(s): E11.65 - Type 2 diabetes mellitus with hyperglycemia Plan: Decrease the amount of carbohydrate intake, pasta, bread, rice and potatoes are all sugar and that is aside from all the sweet stuff, remember that fruits are good but they are Sweet also. Hemoglobin A1c goal of less than 7.0 patient is on glipizide metformin (2) Coronary artery disease: Comment: An STEMI December 2012 BMS to RCA stent Dr. Chaudhari Code(s): I25.10 - Atherosclerotic heart disease of shawnee coronary artery without angina pectoris Qualifiers: Coronary Disease-Associated Artery/Lesion type: shawnee artery [place] vs. transplanted heart: shawnee heart Associated angina: without angina Qualified Code(s): I25.10 - Atherosclerotic heart disease of shawnee coronary artery without angina pectoris Plan: Control the cholesterol, weight, blood pressure, diabetes presently on anticoagulation (3) Hypertension: Code(s): I10 - Essential (primary) hypertension Qualifiers: Hypertension type: essential hypertension Qualified Code(s): I10 - Essential (primary) hypertension Plan: Continue with blood pressure medication. Decrease salt intake and exercise takes amlodipine 10 mg once a day losartan 50 mg once a day and metoprolol 50 mg twice a day (4) Hypercholesterolemia: Code(s): E78.00 - Pure hypercholesterolemia, unspecified Plan: Avoid fried foods, chicken skin, eggs, butter margarine, pastries and meat. Be it pork or beef they have a lot of cholesterol LDL goal of less than 70 and triglyceride of less than 150 patient on atorvastatin 40 mg once a day blood work last done in October for cholesterol (5) COPD (chronic obstructive pulmonary disease): Code(s): J44.9 - Chronic obstructive pulmonary disease, unspecified Qualifiers: COPD type: emphysema Emphysema type: unspecified Qualified Code(s): J43.9 - Emphysema, unspecified Plan: Continue with inhaler as needed on Advair (6) Paroxysmal atrial fibrillation: Comment: December 2012 Code(s): I48.0 - Paroxysmal atrial fibrillation Plan: Continue with anticoagulation Coumadin (7) Aortic stenosis: Comment: April 2021 moderate 1.2 cm squared March 2022he left ventricular systolic function is low normal. The calculated ejection fraction is 54% by biplane method. - The basal inferior and basal inferolateral segments are akinetic. - There is moderate to severe aortic valve stenosis. 1.0 cm2 October 2022 1.11 cm squared Code(s): I35.0 - Nonrheumatic aortic (valve) stenosis Plan: October 2022 last echocardiogram aortic stenosis 1.1 cm t Orders: Orders Creatinine Urine 3 Months E11.65 - Type 2 diabetes mellitus with hyperglycemia Complete Blood Count Auto Diff 3 Months E11.65 - Type 2 diabetes mellitus with hyperglycemia Comprehensive Met. Panel 3 Months E11.65 - Type 2 diabetes mellitus with hyperglycemia Free T4 (Free Thyroxine) 3 Months E11.65 - Type 2 diabetes mellitus with hyperglycemia Hemoglobin A1c 3 Months E11.65 - Type 2 diabetes mellitus with hyperglycemia Vitamin B12 and Folate 3 Months E11.65 - Type 2 diabetes mellitus with hyperglycemia Lipid Panel 3 Months E11.65 - Type 2 diabetes mellitus with hyperglycemia, E78.00 - Pure hypercholesterolemia, unspecified AMB Hemoglobin A1c Today E11.65 - Type 2 diabetes mellitus with hyperglycemia Microalbumin, Random (w Creat) 3 Months E11.65 - Type 2 diabetes mellitus with hyperglycemia Thyroid Stimulating Hormone 3 Months E11.65 - Type 2 diabetes mellitus with hyperglycemia Medications: New fluticasone propion-salmeterol 500-50 mcg/dose (Wixela Inhub) 1 inh inhalation BID 60 ea 7RF E11.65 - Type 2 diabetes mellitus with hyperglycemia Refilled albuterol sulfate 90 mcg/actuation 2 puffs inhalation Q4H PRN 8.5 grams 0RF shortness of breath or wheezing J43.9 - Emphysema, unspecified Discontinued fluticasone propion-salmeterol 500-50 mcg/dose (Advair Diskus) Discontinued Reason: Insurance Denied 1 ea inhalation BID 3 ea 3RF J43.9 - Emphysema, unspecified Coding Level of Care Code Est Pt Level 4 (09801) Diagnoses Type 2 diabetes mellitus with hyperglycemia, without long-term current use of insulin E11.65 Diabetes mellitus nursing home insulin use: without remote computer terminal operator use Coronary artery disease involving shawnee coronary artery of shawnee heart without angina pectoris I25.10 Coronary Disease-Associated Artery/Lesion type: shawnee artery [place] vs. transplanted heart: shawnee heart Associated angina: without angina Essential hypertension I10 Hypertension type: essential hypertension Hypercholesterolemia E78.00 Pulmonary emphysema, unspecified emphysema type J43.9 COPD type: emphysema Emphysema type: unspecified Paroxysmal atrial fibrillation I48.0 Aortic stenosis I35.0
== END 2023-04-09 10:10 | disposition home or self-care (01) ==
PROVIDERS: PCP Internal Medicine; Visit Provider Internal Medicine
DX: E11.65 Type 2 diabetes mellitus with hyperglycemia (principal); J43.9 Emphysema, unspecified; I48.0 Paroxysmal atrial fibrillation; Z89.611 Acquired absence of right leg above knee; I25.10 Atherosclerotic heart disease of native coronary artery without angina pectoris; I10 Essential (primary) hypertension; E78.00 Pure hypercholesterolemia, unspecified; I35.0 Nonrheumatic aortic (valve) stenosis
CPT/HCPCS: 83036; 99214

== ENCOUNTER 2023-04-29 09:31 | Outpatient (AMB) | payer MEDICARE, OTHER, SELFPAY ==
[2023-04-29 09:43] LABS: Prothrombin Time Whole Bld POC 21.8 sec (11.1-13.5); ~PT, ~INR - Anti Coag Clinic 1.8 (0.9-1.1)
--- NOTE | 2023-04-29 09:49 | MHC.OFFVISCO ---
Intake Intake Visit Reasons: Anticoagulation Allergies lisinopril [LISINOPRIL] Allergy (Unknown, Verified 04/29/23 09:38) HIVES Nursing Note INR: 1.8 out of therapeutic range of 2-3 Medications and supplements reviewed No changes in health, medications, or supplements, Denies any signs and symptoms of bleeding or bruising or clotting. Bleeding, bruising, clotting discussed Nutritional guidance given. Pt states had a lot of broccoli yesterday. Will hold greens today and review food list. Then will balance reds and greens. Dose: increase today's dose from 5mg to 7.5mg and then will resume usual dose of 2.5mg X4 days and 5mg X3 days. F/U INR: 3 weeks Patient verbalizes understanding of instructions given Anti-Coag Initial Assessment Social Hx Patient Tobacco Use Status: Former Tobacco user Tobacco use type: Cigarette alcohol intake: never Coding Level of Care Code Est Patient Level 1 Diagnoses Current use of anticoagulant therapy Z79.01 Assessment & Plan Assessment & Plan (1) Current use of anticoagulant therapy: Code(s): Z79.01 - correction (current) use of anticoagulants Category: Medical
== END 2023-04-29 09:55 | disposition home or self-care (01) ==
LOC: HO.ACS 09:31
PROVIDERS: PCP Internal Medicine; Visit Provider Internal Medicine
DX: Z79.01 Long term (current) use of anticoagulants (principal)

== ENCOUNTER → 2023-04-29 09:31 | Outpatient (BNVA) | payer MEDICARE, OTHER, SELFPAY | PROVIDERS: PCP Internal Medicine; Visit Provider Internal Medicine | DX: I48.0 Paroxysmal atrial fibrillation (principal); Z79.01 Long term (current) use of anticoagulants; Z51.81 Encounter for therapeutic drug level monitoring | CPT/HCPCS: 85610; 99211 ==

== ENCOUNTER 2023-05-12 10:01 | Outpatient (AMB) | payer MEDICARE, OTHER, SELFPAY ==
--- NOTE | 2023-05-12 10:08 | MHC.OFFVIS ---
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 Allergies lisinopril [LISINOPRIL] Allergy (Unknown, Verified 04/29/23 09:38) HIVES Medication List - Last Reconciled 05/12/23 by Forrest Chaudhari MD albuterol sulfate 90 mcg/actuation 2 puffs inhalation Q4H PRN amlodipine 10 mg PO DAILY 90 days atorvastatin 40 mg PO DAILY cholecalciferol (vitamin D3) 50 mcg PO DAILY fluticasone propion-salmeterol 500-50 mcg/dose (Wixela Inhub) 1 inh inhalation BID glipizide 1 tab in the AM and 1/2 tab in the PM 90 days hydrochlorothiazide 12.5 mg PO DAILY ketoconazole 2% topical ketoconazole 2% appl topical BID lancets As directed losartan 50 mg PO DAILY metformin 500 mg PO DAILY metoprolol tartrate 50 mg PO BID 90 days mupirocin 2% 1 appl topical BID-TID tamsulosin 0.4 mg PO BEDTIME 90 days tolnaftate 1% 1 appl topical TID umeclidinium 62.5 mcg/actuation (Incruse Ellipta) 1 inh PO BEDTIME warfarin 5 mg See Protocol PO DAILY 90 days HPI HPI Comments History of Present Illness Details Florentino comes for follow-up. Denies any new cardiac symptoms at current time. Denies any exertional chest pain or worsening shortness of breath. He is adjusting to the new prosthesis. Denies any orthopnea, PND, leg edema. No prolonged palpitation irregular heartbeat. No bleeding issues or neurologic events. 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 Mother No problems noted. Social History Housing: House Alcohol intake: never Patient Tobacco Use Status: Former Tobacco user Tobacco use type: Cigarette Years Smoked: quit 1987 e-Cigarette/Vaping Use: Never Used Second Hand Smoke Exposure: No service: No Current occupational status: retired Cognitive needs: Yes (cane/walker/wheelchair) Hearing needs: Yes Vision needs: Yes Review of Systems Const Denies chills, Denies fatigue, Denies fever(s), Denies frequent falls, Denies weakness, Denies weight gain and Denies weight loss ENT Denies dizziness Card Denies chest pain, Denies leg edema, Denies lightheadedness, Denies palpitations, Denies dyspnea, Denies dyspnea on exertion, Denies orthopnea and Denies other (loss of consciousness) Resp Denies cough, Denies dyspnea and Denies dyspnea on exertion GI Denies hematochezia and Denies change in stool character Musc Denies abnormal gait, Denies muscle weakness, Denies numbness, Denies radiating pain into limb and Denies tingling Neuro Denies abnormal gait, Denies dizziness, Denies frequent falls, Denies numbness, Denies tingling and Denies weakness Endo Denies fatigue and Denies palpitations Physical Exam Vital Signs: Last Vital Signs Pulse 60 05/12/23 10:11 BP 120/72 05/12/23 10:11 BMI result Body Mass Index 24.0 Const General: cooperative, comfortable, no acute distress, alert and awake Nutritional Appearance: overweight Orientation/consciousness: patient oriented x3 Limitations: ambulation with cane Neck Neck: Yes trachea midline, Yes supple and Yes no JVD Resp Effort & Inspection: normal respiratory effort Auscultation: clear to auscultation bilaterally and diminished lung sounds Cardio Jugular venous distension: no JVD Palpation: normal PMI Rate: regular rate Rhythm: regular rhythm Heart sounds: S1 normal heart sound present, S2 normal heart sound present, no click, no gallops, Murmur heart sound present systolic late, decrescendo and crescendo and Other heart sounds present (S4 present) GI Auscultation: normal bowel sounds Skin General skin exam: no rashes or lesions noted Neuro General: patient oriented x3 and no focal motor deficits Extrem General: Yes no clubbing, cyanosis or edema and Yes other (Right above knee amputation) Psych Appearance: grossly normal Office Procedures EKG Details: EKG shows normal sinus rhythm with 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 [id number], Complete Assessment & Plan Assessment & Plan (1) Coronary artery disease: Comment: An STEMI December 2012 [address]MS [address] RCA stent [address]. Chaudhari Code(s): I25.10 - Atherosclerotic heart disease of minto coronary artery without angina pectoris Qualifiers: Coronary Disease-Associated Artery/Lesion type: [place]into artery [place] vs. transplanted heart: minto heart Associated angina: without angina Qualified Code(s): I25.10 - Atherosclerotic heart disease of minto coronary artery without angina pectoris Plan: CAD stable without any new symptoms. Advised to call me with any new anginal sounding chest discomfort. Continue aggressive medical therapy. Currently on warfarin for anticoagulation with therefore avoid antiplatelet therapy. Continue aggressive risk factor modification. Blood pressure is currently well optimized. Diabetes under your care with goal hemoglobin A1c less than 7%. On high-intensity statin therapy. Target goal LDL closer to 60 mg/dL. Advised to call me with any new symptoms. (2) Paroxysmal atrial fibrillation: Comment: December 2012 Code(s): I48.0 - Paroxysmal atrial fibrillation Plan: Paroxysmal atrial fibrillation which has remained controlled on metoprolol therapy. Continue the same. No need for antiarrhythmic drug therapy. Currently on warfarin for anticoagulation being followed by [facility]. Maintain target INR between 2 and 3. (3) Aortic stenosis: Comment: April 2021 moderate 1.2 cm squared March 2022he left ventricular systolic function is low normal. The calculated ejection fraction is 54% by biplane method. - The basal inferior and basal inferolateral segments are akinetic. - There is moderate to severe aortic valve stenosis. 1.0 cm2 October 2022 1.11 cm squared Code(s): I35.0 - Nonrheumatic aortic (valve) stenosis Plan: Aortic stenosis which is low-flow moderately severe aortic stenosis. Continue aggressive risk factor modifications above. Patient currently has no symptoms related to it. Will follow-up echocardiogram 6 months time. We discussed about potentially pursuing aortic valve replacement. He said he is nervous about it. This is understandable given his diffuse vascular disease. Discussed with him that we will worry about event we have to discuss more about it. Follow up in the clinic in 6 months time, sooner p.r.n.. Thank you for allowing me to partake in his care Orders: Orders CA echo transthoracic complete 6 Months I35.0 - Nonrheumatic aortic (valve) stenosis Coding Level of Care Code Est Pt Level 4 (93091) Diagnoses Coronary artery disease involving minto coronary artery of minto heart without angina pectoris I25.10 Coronary Disease-Associated Artery/Lesion type: [place]into artery [place] vs. transplanted heart: minto heart Associated angina: without angina Paroxysmal atrial fibrillation I48.0 Aortic stenosis I35.0 CPT Codes EKG - CPT: [id number], Complete ([id number])
[2023-05-12 10:11] VITALS: BP 120/72; PULSE 60; BMI 24.0
== END 2023-05-12 10:39 | disposition home or self-care (01) ==
PROVIDERS: PCP Internal Medicine; Visit Provider Internal Medicine Cardiovascular Disease
DX: I25.10 Atherosclerotic heart disease of native coronary artery without angina pectoris (principal); I48.0 Paroxysmal atrial fibrillation; I35.0 Nonrheumatic aortic (valve) stenosis
CPT/HCPCS: 93010; 99214

== ENCOUNTER → 2023-05-12 10:01 | Outpatient (BNVA) | payer MEDICARE, OTHER, SELFPAY | PROVIDERS: PCP Internal Medicine; Visit Provider Internal Medicine Cardiovascular Disease | DX: I25.10 Atherosclerotic heart disease of native coronary artery without angina pectoris (principal); I48.0 Paroxysmal atrial fibrillation; I35.0 Nonrheumatic aortic (valve) stenosis | CPT/HCPCS: 93005; 99212 ==

== ENCOUNTER 2023-05-22 10:22 | Outpatient (AMB) | payer MEDICARE, OTHER, SELFPAY ==
--- NOTE | 2023-05-22 10:36 | MHC.OFFVISCO ---
Intake Intake Visit Reasons: Anticoagulation Allergies lisinopril [LISINOPRIL] Allergy (Unknown, Verified 05/22/23 10:25) HIVES Medication List - Last Reconciled 05/22/23 by Mine Ruby RN albuterol sulfate 90 mcg/actuation 2 puffs inhalation Q4H PRN amlodipine 10 mg PO DAILY 90 days atorvastatin 40 mg PO DAILY cholecalciferol (vitamin D3) 50 mcg PO DAILY fluticasone propion-salmeterol 500-50 mcg/dose (Wixela Inhub) 1 inh inhalation BID glipizide 1 tab in the AM and 1/2 tab in the PM 90 days hydrochlorothiazide 12.5 mg PO DAILY ketoconazole 2% topical ketoconazole 2% appl topical BID lancets As directed losartan 50 mg PO DAILY metformin 500 mg PO DAILY metoprolol tartrate 50 mg PO BID 90 days mupirocin 2% 1 appl topical BID-TID tamsulosin 0.4 mg PO BEDTIME 90 days tolnaftate 1% 1 appl topical TID umeclidinium 62.5 mcg/actuation (Incruse Ellipta) 1 inh PO BEDTIME warfarin 5 mg See Protocol PO DAILY 90 days Nursing Note INR: 3.0 in therapeutic range SPOUSE IS HOME WITH [employer] BUT THEY ARE MANAGING OK WITH SOME ASSISTANCE Medications and supplements reviewed No changes in health, diet, medications, or supplements, Denies any signs and symptoms of bleeding or bruising or clotting. Bleeding, bruising, clotting discussed Nutritional guidance given - REVIEW FOOD LIST WEEKLY, EAT A MIX OF FRUITS AND VEGETABLES Dose: KEEP SAME DOSE 5MG X 3 DAYS/ 2.5MG X 4 DAYS F/U INR: 4 WEEKS Patient verbalizes understanding of instructions given Anti-Coag Initial Assessment Social Hx Patient Tobacco Use Status: Former Tobacco user Tobacco use type: Cigarette alcohol intake: never Coding Level of Care Code Est Patient Level 1 Diagnoses Current use of anticoagulant therapy Z79.01 Results AMB INR Fingerstick AMB INR Fingerstick 3.0 Last Edit by Mine Ruby RN on 05/22/23 10:34 MANUAL ENTRY TAKES EXTRA TIME DUE TO FAILED INTERFACING Assessment & Plan Assessment & Plan (1) Current use of anticoagulant therapy: Code(s): Z79.01 - skilled nursing (current) use of anticoagulants Category: Medical
[2023-05-22 11:14] LABS: Prothrombin Time Whole Bld POC 35.6 sec (11.1-13.5)
== END 2023-05-22 10:39 | disposition home or self-care (01) ==
LOC: HO.ACS 10:22
PROVIDERS: PCP Internal Medicine; Visit Provider Internal Medicine
DX: Z79.01 Long term (current) use of anticoagulants (principal)

== ENCOUNTER → 2023-05-22 10:22 | Outpatient (BNVA) | payer MEDICARE, OTHER, SELFPAY | PROVIDERS: PCP Internal Medicine; Visit Provider Internal Medicine | DX: I48.0 Paroxysmal atrial fibrillation (principal); Z79.01 Long term (current) use of anticoagulants; Z51.81 Encounter for therapeutic drug level monitoring | CPT/HCPCS: 85610; 99211 ==

== ENCOUNTER 2023-05-26 08:23 | Outpatient (AMB) | payer MEDICARE, OTHER, SELFPAY ==
--- NOTE | 2023-05-26 08:25 | A.OFFVIS_ITS ---
Intake Intake Visit Reasons: 6M Med Review confirmed Intake Note: Patient presents today for a telehealth follow-up Meds- Tamsulosin Allergies to Antibiotic- No Known Allergies Blood Thinner- Warfarin Crap Shooter Required: No Allergies lisinopril [LISINOPRIL] Allergy (Unknown, Verified 05/26/23 08:27) HIVES HPI HPI Comments History of Present Illness Details Florentino is a pleasant male. He is a patient of Dr. Stewart. 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 Mother No problems noted. Social History Housing: House Alcohol intake: never Patient Tobacco Use Status: Former Tobacco user Tobacco use type: Cigarette Years Smoked: quit 1987 e-Cigarette/Vaping Use: Never Used Second Hand Smoke Exposure: No service: No Current occupational status: retired Cognitive needs: Yes (cane/walker/wheelchair) Hearing needs: Yes Vision needs: Yes Review of Systems Const All systems reviewed & are unremarkable except as noted in HPI and below Reports no additional complaints Resp Reports no additional complaints GI Reports no additional complaints Reports as per HPI Musc Reports no additional complaints Physical Exam Telemedicine evaluation Appropriate responses Regular breathing rate and rhythm HEENT Head: Yes normal to inspection Ears: hearing grossly normal bilaterally Eyes General: appearance normal, both eyes and all related structures Neck Neck: Yes normal visual inspection Chest Chest palpation & inspection: normal inspection of the chest Resp Effort & Inspection: normal respiratory effort and able to speak in complete sentences Assessment & Plan Assessment & Plan (1) Bladder outlet obstruction: Code(s): N32.0 - Bladder-neck obstruction (2) Urinary urgency: Code(s): R39.15 - Urgency of urination Plan Six-month follow-up PVR orifice Patient Instructions: Imaging studies, laboratory and physical exam results were discussed and reviewed in detail. No major barriers to patient understanding were identified. An opportunity to ask questions regarding the treatment plan was provided. All questions were answered. The patient expressed understanding and agreement with the above treatment plan. The patient is aware they should contact our office by phone for worsening of their current condition or the appearance of new urologic symptoms. Compliance is encouraged with any medications and followup testing that is ordered. It is a privilege to participate in the urologic care of your patient. If you have any questions or concerns regarding treatment for the above conditions, or other urologic issues, please do not hesitate to contact me. The office telephone contact is [phone]. This note is constructed using voice recognition software. While every effort has been made to ensure accuracy associate professor of forestry errors may have been included. Yours sincerely, Dr Maynor Wright MD, [facility] - Urology Providers of Expert, Compassionate Care for the Genitourinary System Telehealth Telehealth Location of provider rendering services: practice address Location of patient: address on file Patient Identification confirmed using: Name, : Yes Telehealth method: video Patient verbally consented to treatment: Yes Patient verbally consented to billing insurance company: Yes Patient informed of any privacy concerns related to visit: Yes Coding Level of Care Code Tele Est Pt Level 3 (82914) Diagnoses Bladder outlet obstruction N32.0 Urinary urgency R39.15
== END 2023-05-26 09:33 | disposition home or self-care (01) ==
LOC: HO.HUSH 08:24
PROVIDERS: PCP Internal Medicine; Visit Provider Urology
DX: N32.0 Bladder-neck obstruction (principal); R39.15 Urgency of urination
CPT/HCPCS: 99213

== ENCOUNTER → 2023-05-26 08:23 | Outpatient (BNVA) | payer MEDICARE, OTHER, SELFPAY | PROVIDERS: PCP Internal Medicine; Visit Provider Urology ==

== ENCOUNTER 2023-06-19 09:40 | Outpatient (AMB) | payer MEDICARE, OTHER, SELFPAY ==
[2023-06-19 09:50] LABS: Prothrombin Time Whole Bld POC 32.7 sec (11.1-13.5); ~PT, ~INR - Anti Coag Clinic 2.7 (0.9-1.1)
--- NOTE | 2023-06-19 09:52 | MHC.OFFVISCO ---
Intake Intake Visit Reasons: Anticoagulation Allergies lisinopril [LISINOPRIL] Allergy (Unknown, Verified 06/19/23 09:42) HIVES Medication List - Last Reconciled 06/19/23 by Taya Polk RN albuterol sulfate 90 mcg/actuation 2 puffs inhalation Q4H PRN amlodipine 10 mg PO DAILY 90 days atorvastatin 40 mg PO DAILY cholecalciferol (vitamin D3) 50 mcg PO DAILY fluticasone propion-salmeterol 500-50 mcg/dose (Wixela Inhub) 1 inh inhalation BID glipizide 1 tab in the AM and 1/2 tab in the PM 90 days hydrochlorothiazide 12.5 mg PO DAILY ketoconazole 2% topical ketoconazole 2% appl topical BID lancets As directed losartan 50 mg PO DAILY metformin 500 mg PO DAILY metoprolol tartrate 50 mg PO BID 90 days mupirocin 2% 1 appl topical BID-TID tamsulosin 0.4 mg PO BEDTIME 90 days tolnaftate 1% 1 appl topical TID umeclidinium 62.5 mcg/actuation (Incruse Ellipta) 1 inh PO BEDTIME warfarin 5 mg See Protocol PO DAILY 90 days Nursing Note INR: 2.7 in therapeutic range of 2-3 Medications and supplements reviewed: no changes per pt No changes in health, diet, medications, or supplements, Denies any signs and symptoms of bleeding or bruising or clotting. Bleeding, bruising, clotting discussed Nutritional guidance given to review the food list and continue to balance reds and greens Dose: 5mg X3 days and 2.5mg X 4 days F/U INR: 4 weeks Patient verbalizes understanding of instructions given Anti-Coag Initial Assessment Social Hx Patient Tobacco Use Status: Former Tobacco user Tobacco use type: Cigarette alcohol intake: never Coding Level of Care Code Est Patient Level 1 Diagnoses Current use of anticoagulant therapy Z79.01 Results AMB INR Fingerstick AMB INR Fingerstick 2.7 Last Edit by Taya Polk RN on 06/19/23 09:50 interface delay Assessment & Plan Assessment & Plan (1) Current use of anticoagulant therapy: Code(s): Z79.01 - shelter (current) use of anticoagulants Category: Medical
== END 2023-06-19 09:55 | disposition home or self-care (01) ==
LOC: HO.ACS 09:40
PROVIDERS: PCP Internal Medicine; Visit Provider Internal Medicine
DX: Z79.01 Long term (current) use of anticoagulants (principal)

== ENCOUNTER → 2023-06-19 09:40 | Outpatient (BNVA) | payer MEDICARE, OTHER, SELFPAY | PROVIDERS: PCP Internal Medicine; Visit Provider Internal Medicine | DX: I48.0 Paroxysmal atrial fibrillation (principal); Z79.01 Long term (current) use of anticoagulants; Z51.81 Encounter for therapeutic drug level monitoring | CPT/HCPCS: 85610; 99211 ==

== ENCOUNTER 2023-07-06 09:55 | Outpatient (REF) | payer MEDICARE, OTHER, SELFPAY ==
[2023-07-06 10:18] LABS: MANUAL DIFF FLAG NO
[2023-07-06 10:35] LABS: Basophils Percent Auto 0.3 % (0-2); Eosinophils Absolute Auto 0.4 X10*3/uL (0.0-0.4); Eosinophils Percent Auto 4.1 % (0-4); Hematocrit 34.9 % (42.0-52.0); Hemoglobin 11.3 g/dl (14.0-18.0); Imm Gran Abs Auto 0.02 X10*3/uL (0.00-0.03); Imm Gran Pct Auto 0.2 % (0.0-0.4); Lymphocytes Absolute Auto 3.1 X10*3/uL (1.2-4.9); Lymphocytes Percent Auto 31.9 % (20-40); Mean Corpuscular HGB Conc 32.4 g/dl (31.0-36.0); Mean Corpuscular Hemoglobin 28.9 pg (27.0-33.0); Mean Corpuscular Volume 89.3 fL (80.0-98.0); Mean Platelet Volume 10.3 fL (9.4-12.4); Monocytes Absolute Auto 1.1 X10*3/uL (0.1-1.2); Monocytes Percent Auto 10.7 % (2-11); Neutrophils Absolute Auto 5.2 x10*3/uL (2.0-8.3); Neutrophils Percent Auto 52.8 % (45-73); Platelet Count 276 X10*3/uL (160-400); Red Blood Count 3.91 X10*6/uL (4.60-5.80); Red Cell Distribution Width 13.6 % (11.0-16.0); White Blood Count 9.8 X10*3/uL (4.8-10.8)
[2023-07-06 10:54] LABS: Estimated Average Glucose 126 mg/dL
[2023-07-06 11:22] LABS: Alanine Aminotransferase 20 U/L (0-40); Albumin Level 3.4 g/dL (3.5-5.0); Alkaline Phosphatase 67 U/L (39-117); Anion Gap 14 (12-20); Aspartate Amino Transferase 26 U/L (5-37); Bilirubin Total 0.5 mg/dL (0.0-1.0); Blood Urea Nitrogen 53 mg/dL (9-16); Calcium 9.2 mg/dL (8.4-10.2); Carbon Dioxide 21 mmol/L (22-29); Chloride 109 mmol/L (96-108); Cholesterol 100 mg/dL (<200); Estimated Glomerular Filt Rate 35; Glucose Random 87 mg/dL (60-115); HDL Cholesterol 41 mg/dL (>40); LDL Cholesterol Calculated 44 mg/dL (<100); Potassium 4.5 mmol/L (3.3-5.1); Sodium 139 mmol/L (135-145); Total Protein 6.6 g/dL (6.5-8.0); Triglycerides 78 mg/dL (<150)
[2023-07-06 11:36] LABS: Free T4 (Free Thyroxine) 1.07 ng/dL (0.71-1.85); Thyroid Stimulating Hormone 3.54 uIU/mL (0.32-4.0)
[2023-07-06 11:41] LABS: Creatinine Urine 28.38 mg/dL
[2023-07-06 11:41] LABS: Folate 6.2 ng/mL (> or = 4.0); Vitamin B12 454 pg/mL (200-900)
== END 2023-07-06 09:56 | disposition home or self-care (01) ==
LOC: HO.LAB 09:55
PROVIDERS: PCP Internal Medicine; Visit Provider Internal Medicine
DX: E11.65 Type 2 diabetes mellitus with hyperglycemia (principal); E78.00 Pure hypercholesterolemia, unspecified
CPT/HCPCS: 36415; 80053; 80061; 82043; 82570; 82607; 82746; 83036; 84439; 84443; 85025

== ENCOUNTER 2023-07-12 17:33 | Inpatient (IN) | payer MEDICARE, OTHER, SELFPAY ==
--- NOTE | ~2023-07-12 | XR_ITS ---
EXAMINATION: XR CHEST CLINICAL INFORMATION: Positive Covid COMPARISON: 11/04/2018 TECHNIQUE: Frontal view of the chest was obtained. FINDINGS: No significant abnormality is noted involving the heart, lungs, mediastinum, bony thorax or soft tissues. XR/XR chest 1V IMPRESSION: Unremarkable examination.
[2023-07-12 17:43] VITALS: BP 144/44; PULSE 69; RESP 18; TEMP 36.7; O2SAT 97; BMI 25.4
--- NOTE | 2023-07-12 17:56 | ED_ITS ---
HPI - Nausea/Vomiting/Diarrhea General Chief complaint: Nausea/Vomiting/Diarrhea Stated complaint: covid +, not getting better. dehydrated Time Seen by Provider: 07/12/23 18:38 Source: patient and family Mode of arrival: ambulatory Limitations: no limitations History of Present Illness HPI Narrative: Patient's history of diabetes coronary artery disease hypotension COPD AFib on Coumadin with CKD been sick since 06/29 with upper respiratory symptoms diagnosed as COVID since then patient going downhill had nausea vomiting few days ago took Imodium no diarrhea anymore does not feel like eating and still feeling weak and exhausted coughing a lot Related Data Home Medications ?Medication ?Instructions ?Recorded ?Confirmed cholecalciferol (vitamin D3) 50 50 mcg PO DAILY 03/19/20 07/13/23 mcg (2,000 unit) capsule lancets 28 gauge #100 ea 04/18/20 06/19/23 ketoconazole 2 % shampoo 1 appl topical DAILY PRN Rash 09/12/20 07/13/23 glipizide 5 mg tablet 2.5 mg PO BEDTIME 07/13/23 07/13/23 glipizide 5 mg tablet 5 mg PO DAILY 07/13/23 07/13/23 warfarin 5 mg tablet 2.5 mg PO SUTUTHSA@1800 07/13/23 07/13/23 warfarin 5 mg tablet 5 mg PO MOWEFR@1800 07/13/23 07/13/23 Previous Rx's ?Medication ?Instructions ?Recorded umeclidinium 62.5 mcg/actuation 1 inh PO BEDTIME #90 grams 07/06/22 blister powder for inhalation (Incruse Ellipta) atorvastatin 40 mg tablet 40 mg PO DAILY #90 tabs 08/19/22 tamsulosin 0.4 mg capsule 0.4 mg PO BEDTIME 90 days #90 caps 11/04/22 hydrochlorothiazide 12.5 mg tablet 12.5 mg PO DAILY #90 tabs 12/15/22 metoprolol tartrate 50 mg tablet 50 mg PO BID 90 days #180 tabs 12/30/22 amlodipine 10 mg tablet 10 mg PO DAILY 90 days #90 tabs 01/03/23 metformin 500 mg tablet 500 mg PO DAILY #90 tabs 01/03/23 albuterol sulfate 90 mcg/actuation 2 puff inhalation Q4H PRN 01/25/24 aerosol inhaler shortness of breath or wheezing #8.5 grams fluticasone 500 mcg-salmeterol 50 1 inh inhalation BID #60 ea 04/09/23 mcg/dose blistr powdr for inhalation (Aaronxmadai Inhub) losartan 50 mg tablet 50 mg PO DAILY #90 tabs 07/01/23 Allergies Allergy/AdvReac Type Severity Reaction Status Date / Time lisinopril [LISINOPRIL] Allergy Unknown HIVES Verified 07/12/23 17:44 Review of Systems 2 Review of Systems: Yes all other systems are reviewed and are negative [facility] Past Medical History Medical History Medicare annual wellness visit, initial Aortic stenosis 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 Mother No problems noted. Social History Social History Household Members: Spouse Housing: House Do you presently have visiting nurse or other home services: No Alcohol intake: never Patient Tobacco Use Status: Former Tobacco user Tobacco use type: Cigarette Years Smoked: quit 1987 e-Cigarette/Vaping Use: Never Used Second Hand Smoke Exposure: No service: No Current occupational status: retired Cognitive needs: Yes (cane/walker/wheelchair) Hearing needs: Yes Vision needs: Yes Physical Exam 2 Vital Signs: Vital Signs: Last Vital Signs Temp 98.7 F 07/13/23 11:20 Pulse 67 07/13/23 11:20 Resp 20 07/13/23 11:20 BP 188/78 H 07/13/23 11:20 Pulse Ox 93 07/13/23 11:20 O2 Del Method Room Air 07/13/23 11:20 BMI result Body Mass Index 25.4 Appearance: Alert. Oriented X3. No acute distress. Eyes: PERRLA, No Nystagmus ENT: Pharynx normal. Oral Mucosa moist Neck: Normal inspection. Neck supple. CVS: Normal heart rate and rhythm. Pulses normal. Respiratory: No respiratory distress. Equal air entry bilateral, no wheezing/rales/rhonchi frequent cough Abdomen: Soft and nontender. Bowel sounds are present, no mass palpable, no CVA tenderness Skin: Skin warm and dry. Normal skin color. Normal skin turgor. Extremities: No lower extremity edema. No calf tenderness Neuro: Oriented X 3. No motor deficit. No sensory deficit.No cerebellar signs , cranial nerves II-XII intact Course Course Course Narrative: RME: 87-year-old male presents to ED for generalized weakness, nausea, vomiting, and diarrhea. Patient COVID positive since June 29 and having symptoms. Patient presents to the ED for evaluation. Labs ordered. Medications Administered Generic Name Dose Route Start Last Admin Trade Name Freq PRN Reason Stop Dose Admin Guaifenesin/Dextromethorphan 5 ml 07/13/23 08:21 07/13/23 11:25 Guaifenesin Dm 100/10/5 Ml 5 Ml Syrup PO 5 ml Q4H PRN Administration Cough Insulin Human Lispro 0 unit 07/13/23 11:30 07/13/23 11:26 Insulin Lispro 100 Unit/Ml 3 Ml Vial SUBCUT 2 unit QIDACHS [facility] Administration Protocol Metoprolol Tartrate 50 mg 07/12/23 21:00 07/13/23 08:04 Metoprolol Tartrate 50 Mg Tablet PO 50 mg BID DAVID Administration Protocol Sodium Chloride 3 ml 07/13/23 00:00 07/13/23 08:04 0.9 % Sodium Chloride Flush 3 Ml Syringe IVFLUSH 3 ml QSHIFT DAVID Administration Discontinued Medications Generic Name Dose Route Start Last Admin Trade Name Freq PRN Reason Stop Dose Admin Sodium Chloride 1,000 mls @ 999 mls/hr 07/12/23 19:00 07/12/23 20:46 Ns IV 07/12/23 20:00 Infused .Q1H1M ONE Infusion Sodium Chloride 1,000 mls @ 100 mls/hr 07/12/23 20:45 07/13/23 08:05 Ns IVCONT Infused .Q10H DAVID Infusion Ondansetron HCl 4 mg 07/12/23 19:01 07/12/23 19:18 Ondansetron Hcl 4 Mg/2 Ml Vial IVPUSH 07/12/23 19:02 4 mg ONCE ONE Administration Medical Decision Making Medical Decision Making [facility] Narrative: Patient is post COVID feels the thrive increased weakness is also with medical condition does feel weak with poor oral intake admit for supportive treatment patient has decreased fluid intake creatinine has increased will admit patient for JULIO Differential Diagnosis Differential Diagnoses: The differential diagnosis associated with the presentation includes pneumonia/COVID-19 syndrome/failure to thrive Admission/Observation Consideration of admission/observation: Escalation of care including admission/observation considered Consult Healthcare Provider Management of the patient was discussed with: Hospitalist Lab Data [facility] Lab Attestation statement: I reviewed the patient's lab results. 07/13/23 06:22 07/13/23 06:22 Labs: Lab Results 07/12/23 07/12/23 07/12/23 Range/Units 18:02 19:16 19:24 WBC 11.9 H (4.8-10.8) X10*3/uL RBC 3.72 L (4.60-5.80) X10*6/uL Hgb 10.6 L (14.0-18.0) g/dl Hct 32.0 L (42.0-52.0) % MCV 86.0 (80.0-98.0) fL MCH 28.5 (27.0-33.0) pg MCHC 33.1 (31.0-36.0) g/dl RDW 13.8 (11.0-16.0) % Plt Count 222 (160-400) X10*3/uL MPV 10.3 (9.4-12.4) fL Immature Gran % (Auto) 0.3 (0.0-0.4) % Neut % (Auto) 71.4 (45-73) % Lymph % (Auto) 19.4 L (20-40) % [place] % (Auto) 8.7 (2-11) % Eos % (Auto) 0.1 (0-4) % Baso % (Auto) 0.1 (0-2) % Lymph # (Auto) 2.3 (1.2-4.9) X10*3/uL [place] # (Auto) 1.0 (0.1-1.2) X10*3/uL Eos # (Auto) 0.0 (0.0-0.4) X10*3/uL Baso # (Auto) 0.0 (0.0-0.2) X10*3/uL Abs Immat Gran (auto) 0.03 (0.00-0.03) X10*3/uL Absolute Neuts (auto) 8.5 H (2.0-8.3) x10*3/uL Absolute Nucleated RBC 0.000 (0.0-0.012) X10*3/uL Nucleated RBC % (auto) 0.0 (0.0-0.2) /100WBC PT 34.5 H (11.1-13.3) SEC INR 2.8 H (0.9-1.1) APTT 42.6 H (26.0-36.8) SEC Sodium 135 (135-145) mmol/L Potassium 3.8 (3.3-5.1) mmol/L Chloride 104 (96-108) mmol/L Carbon Dioxide 20 L (22-29) mmol/L Anion Gap 15 (12-20) BUN 50 H (9-16) mg/dL Creatinine 2.12 H (0.5-1.4) mg/dL Estim Creat Clear Calc 27.9 Estimated GFR 30 Random Glucose 119 H (60-115) mg/dL Calcium 8.6 D (8.4-10.2) mg/dL Magnesium 1.6 (1.6-2.6) mg/dL Total Bilirubin 0.5 (0.0-1.0) mg/dL AST 50 H (5-37) U/L ALT 32 (0-40) U/L Alkaline Phosphatase 58 (39-117) U/L Total Protein 6.3 L (6.5-8.0) g/dL Albumin 3.2 L (3.5-5.0) g/dL Influenza Type A (PCR) NEGATIVE (Negative) Influenza Type B (PCR) NEGATIVE (Negative) RSV RNA Qual (PCR) NEGATIVE (Negative) SARS-CoV-2 RNA (RT-PCR) POSITIVE A (Negative) Independent Interpretation I performed an independent interpretation of an: Plain X-Ray Discharge Plan Discharge Clinical Impression: Acute kidney injury, COVID-19 Patient Disposition: Admitted As Inpatient Interventions: Admission Worksheet (ED) Last Done: 07/13/23 01:13 Discharge Date/Time: 07/13/23 02:50
[2023-07-12 18:07] LABS: MANUAL DIFF FLAG NO
[2023-07-12 18:10] LABS: Basophils Percent Auto 0.1 % (0-2); Eosinophils Percent Auto 0.1 % (0-4); Hemoglobin 10.6 g/dl (14.0-18.0); Imm Gran Abs Auto 0.03 X10*3/uL (0.00-0.03); Imm Gran Pct Auto 0.3 % (0.0-0.4); Lymphocytes Absolute Auto 2.3 X10*3/uL (1.2-4.9); Lymphocytes Percent Auto 19.4 % (20-40); Mean Corpuscular HGB Conc 33.1 g/dl (31.0-36.0); Mean Corpuscular Hemoglobin 28.5 pg (27.0-33.0); Mean Platelet Volume 10.3 fL (9.4-12.4); Monocytes Percent Auto 8.7 % (2-11); Neutrophils Absolute Auto 8.5 x10*3/uL (2.0-8.3); Neutrophils Percent Auto 71.4 % (45-73); Platelet Count 222 X10*3/uL (160-400); Red Blood Count 3.72 X10*6/uL (4.60-5.80); Red Cell Distribution Width 13.8 % (11.0-16.0); White Blood Count 11.9 X10*3/uL (4.8-10.8)
[2023-07-12 18:25] LABS: Alanine Aminotransferase 32 U/L (0-40); Albumin Level 3.2 g/dL (3.5-5.0); Alkaline Phosphatase 58 U/L (39-117); Anion Gap 15 (12-20); Aspartate Amino Transferase 50 U/L (5-37); Bilirubin Total 0.5 mg/dL (0.0-1.0); Blood Urea Nitrogen 50 mg/dL (9-16); Calcium 8.6 mg/dL (8.4-10.2); Carbon Dioxide 20 mmol/L (22-29); Chloride 104 mmol/L (96-108); Creatinine Clr Calc Pharmacy 27.9; Estimated Glomerular Filt Rate 30; Glucose Random 119 mg/dL (60-115); Magnesium 1.6 mg/dL (1.6-2.6); Potassium 3.8 mmol/L (3.3-5.1); Sodium 135 mmol/L (135-145); Total Protein 6.3 g/dL (6.5-8.0)
--- NOTE | 2023-07-12 18:48 | PC.NURSE ---
patient brought in from waiting room in wheelchair, very weak. three person assist into bed. states he has been feeling weak since thursday.
[2023-07-12] MEDS: ondansetron HCL 4 MG/2 ML VIAL IVPUSH (19:18)
[2023-07-12] MEDS: 0.9 % Sodium Chloride 1,000 ML 999 ML IV (19:18)
[2023-07-12 19:31] LABS: INTERNATIONAL NORM RATIO 2.8 (0.9-1.1); Prothrombin Time 34.5 SEC (11.1-13.3)
[2023-07-12 19:34] LABS: Partial Thromboplastin Time 42.6 SEC (26.0-36.8)
--- NOTE | 2023-07-12 20:04 | P.HPHOSP_ITS ---
History of Present Illness Date of Service: 07/12/23 Attending physician on admission: Ida Esquivel Chief Complaint: diarrhea, weakness 87-year-old male with history of coronary artery disease, hypertension, COPD, paroxysmal atrial fibrillation anticoagulated with Coumadin, [id number] type 2 diabetes, CKD stage III diagnosed with COVID-19 on 07/06 or 07/07 per family report presenting to the ED earlier today due to worsening symptoms including nausea, vomiting, diarrhea, generalized weakness, and poor p.o. intake. He states initially has cough for 2 days before presenting to urgent care with positive covid-19 diagnosis. also sick with COVID-19. He continue with nonproductive cough. Has also been having daily episodes of diarrhea and was prescribed Imodium with good effect. Had 1 episode of vomiting last night without any recurrence. He has had decreased p.o. intake and has been feeling generally weak and unwell. Denies any fevers, chills, sore throat, congestion, abdominal pain, melena, hematochezia, urinary symptoms, shortness of breath, wheezing, lightheadedness, or chest pain. He has not had any diarrhea in 24 hours. On arrival, vital signs stable. There is a mild leukocytosis of 11.9. Creatinine 2.12, was 1.84 on 07/05 but baseline appears to be around 1.48. BUN 50, electrolyte levels normal. Negative for influenza and RSV but positive for COVID-19. Chest x-ray unremarkable. In the ED, has received 1 L IV NS and ondansetron. He will be admitted for further management of acute kidney injury in setting of poor p.o. intake related to COVID-19. 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 Mother No problems noted. Surgical History Stented coronary artery History of right above knee amputation History of parotid gland excision History of eye surgery Social History Housing: House Alcohol intake: never Patient Tobacco Use Status: Former Tobacco user Tobacco use type: Cigarette Years Smoked: quit 1987 e-Cigarette/Vaping Use: Never Used Second Hand Smoke Exposure: No Advance Directives: No Advance Directives Information Provided: No Do you have a plan to hurt others: No Plan Nutrition Risks: Acute nausea or vomiting x1 week service: No Current occupational status: retired Cognitive needs: Yes (cane/walker/wheelchair) Hearing needs: Yes Vision needs: Yes Meds Allergies Allergy/AdvReac Type Severity Reaction Status Date / Time lisinopril [LISINOPRIL] Allergy Unknown HIVES Verified 07/12/23 17:44 Home Medications ?Medication ?Instructions ?Recorded ?Confirmed ?Last Taken ?Type cholecalciferol (vitamin D3) 50 50 mcg PO DAILY 03/19/20 06/19/23 Unknown History mcg (2,000 unit) capsule tolnaftate 1 % topical powder 1 appl topical TID 03/19/20 06/19/23 Unknown History lancets 28 gauge #100 ea 04/18/20 06/19/23 Unknown History ketoconazole 2 % shampoo topical 09/12/20 06/19/23 Unknown History ketoconazole 2 % topical cream appl topical BID 09/12/20 06/19/23 Unknown History mupirocin 2 % topical ointment 1 appl topical BID-TID 09/12/20 06/19/23 Unknown History Physical Exam 2 Vital Signs and Narrative: Vital Signs: Last Vital Signs Temp 98.0 F 07/12/23 17:43 Pulse 69 07/12/23 17:43 Resp 18 07/12/23 17:43 BP 144/44 H 07/12/23 17:43 Pulse Ox 97 07/12/23 17:43 O2 Del Method Room Air 07/12/23 17:43 BMI result Body Mass Index 25.4 Constitutional - Awake and Alert, No apparent distress Eyes - PERRLA, EOMI Cardiovascular - S1S2, RRR, No edema Respiratory - Normal lung expansion, Normal respiratory effort, No respiratory distress, CTA bilaterally Gastrointestinal - NT / ND; +BS; No rebound or guarding Extremities - no calf tenderness bilaterally, no swelling Musculoskeletal - Right AKA Skin - Warm/Dry Neurological - Alert & oriented x3 Results Labs 07/12/23 18:02 07/12/23 18:02 Labs: Laboratory Results - last 24 hr 07/12/23 07/12/23 18:02 19:16 MCV 86.0 MCH 28.5 MCHC 33.1 RDW 13.8 Plt Count 222 MPV 10.3 Immature Gran % (Auto) 0.3 Neut % (Auto) 71.4 Lymph % (Auto) 19.4 L [place] % (Auto) 8.7 Eos % (Auto) 0.1 Baso % (Auto) 0.1 Lymph # (Auto) 2.3 [place] # (Auto) 1.0 Eos # (Auto) 0.0 Baso # (Auto) 0.0 Abs Immat Gran (auto) 0.03 Absolute Neuts (auto) 8.5 H Absolute Nucleated RBC 0.000 Nucleated RBC % (auto) 0.0 PT 34.5 H INR 2.8 H APTT 42.6 H Anion Gap 15 Estim Creat Clear Calc 27.9 Estimated GFR 30 Random Glucose 119 H Calcium 8.6 D Magnesium 1.6 Total Bilirubin 0.5 AST 50 H ALT 32 Alkaline Phosphatase 58 Total Protein 6.3 L Albumin 3.2 L Assessment and Plan (1) COVID-19: Status: Acute (2) Acute kidney injury: Status: Acute Plan 87-year-old male with history of coronary artery disease, hypertension, COPD, paroxysmal atrial fibrillation anticoagulated with Coumadin, [id number] type 2 diabetes, CKD stage III diagnosed with COVID-19 on 06/29 admitted for further management of acute kidney injury in setting of gi losses due to covid-19 #Acute kidney injury- likely prerenal due to hypovolemia from gi losses and poor PO intake -creat 2.12, baseline around 1.4 -Continue IVF -avoid nephrotoxins -monitor i&o -follow renal function/lytes #Acute nausea/vomiting/diarrhea -likely viral r/t recent covid 19 infection -no diarrhea last 24 hours -continue ivf -would like to trial diet -antiemetics p.r.n. #covid-19 infection with persistent weakness -pt eval -symptomatic management -airborne/contact precautions # COPD -no acute exacerbation -continue maintenance inhalers, albuterol p.r.n. # paroxysmal atrial fibrillation -continue Coumadin for anticoagulation, INR therapeutic -follow INR daily -continue metoprolol for rate control # sts-[id number]-[id number] type 2 diabetes -POC glucose, diabetic diet -Admelog on sliding scale, hold oral antihyperglycemics # hypertension -hold losartan and hydrochlorothiazide in setting of JULIO. Continue amlodipine, metoprolol DVT prophylaxis-Coumadin Full code Med rec pending Patient requires inpatient stay at least 2 midnights for management of acute kidney injury secondary to GI losses and significant weakness related to recent COVID-19 infection requiring IV fluid resuscitation, close monitoring of renal function electrolyte levels as well as probable placement STR Quality Stroke Does the patient have a stroke diagnosis?: No VTE Prior VTE?: No VTE Risk Level:: Medical - moderate - high VTE Device Contraindication: Treatment Not Indicated VTE Drug Contraindication: N/A - Med Ordered
[2023-07-12 20:07] LABS: Influenza A PCR NEGATIVE (Negative); Influenza B PCR NEGATIVE (Negative); Resp Syncy Virus RNA Qual PCR NEGATIVE (Negative); SARS COV2 PCR INHOUSE POSITIVE (Negative)
[2023-07-12] MEDS: 0.9 % Sodium Chloride 1,000 ML 100 ML IVCONT (20:57)
[2023-07-12 20:58] VITALS: BP 158/49; PULSE 72
[2023-07-12] MEDS: Metoprolol Tartrate 50 MG TABLET PO (20:58)
[2023-07-12 22:07] VITALS: BP 157/52; PULSE 74; RESP 16; TEMP 37.2; O2SAT 93
[2023-07-13 00:30] LABS: Appearance Urine Clear; Color Urine Yellow; Glucose Urine UA Negative (Negative); Leukocyte Esterase Urine Negative (Negative); Nitrite Urine Negative (Negative); UMIC TRIGGER UACC YES; Urine Blood Small (1+) (Negative); Urine Ketones Negative (Negative); Urine Protein 300 (3+) mg/dL (Neg-Trace)
[2023-07-13 00:42] LABS: Bacteria Urine None Seen (None Seen); Granular Casts Urine Present; RBC Urine 0-2 /HPF (0-2); Squamous Epithelial Cell Urine 0-2 /HPF (0-2); WBC Urine 0-5 /HPF (0-5)
[2023-07-13 04:00] VITALS: BP 152/73; PULSE 66; RESP 20; TEMP 37.2
[2023-07-13 06:39] LABS: MANUAL DIFF FLAG NO
[2023-07-13 06:49] LABS: Basophils Percent Auto 0.2 % (0-2); Eosinophils Absolute Auto 0.1 X10*3/uL (0.0-0.4); Eosinophils Percent Auto 1.2 % (0-4); Hematocrit 29.9 % (42.0-52.0); Hemoglobin 9.9 g/dl (14.0-18.0); Imm Gran Abs Auto 0.03 X10*3/uL (0.00-0.03); Imm Gran Pct Auto 0.3 % (0.0-0.4); Lymphocytes Absolute Auto 2.7 X10*3/uL (1.2-4.9); Lymphocytes Percent Auto 29.7 % (20-40); Mean Corpuscular HGB Conc 33.1 g/dl (31.0-36.0); Mean Corpuscular Volume 87.7 fL (80.0-98.0); Mean Platelet Volume 10.7 fL (9.4-12.4); Monocytes Absolute Auto 0.9 X10*3/uL (0.1-1.2); Monocytes Percent Auto 10.4 % (2-11); Neutrophils Absolute Auto 5.3 x10*3/uL (2.0-8.3); Neutrophils Percent Auto 58.2 % (45-73); Platelet Count 194 X10*3/uL (160-400); Red Blood Count 3.41 X10*6/uL (4.60-5.80); Red Cell Distribution Width 13.9 % (11.0-16.0); White Blood Count 9.1 X10*3/uL (4.8-10.8)
[2023-07-13 07:02] LABS: Anion Gap 12 (12-20); Blood Urea Nitrogen 43 mg/dL (9-16); Calcium 7.9 mg/dL (8.4-10.2); Carbon Dioxide 18 mmol/L (22-29); Chloride 112 mmol/L (96-108); Estimated Glomerular Filt Rate 39; Glucose Random 95 mg/dL (60-115); Potassium 3.7 mmol/L (3.3-5.1); Sodium 138 mmol/L (135-145)
[2023-07-13 07:08] LABS: INTERNATIONAL NORM RATIO 2.8 (0.9-1.1); Prothrombin Time 34.6 SEC (11.1-13.3)
[2023-07-13 07:24] VITALS: BP 182/72; PULSE 68; RESP 18; TEMP 37.4; O2SAT 92
--- NOTE | 2023-07-13 07:42 | PC.NURSE ---
This RN assumed care of pt at 0700. Pt Blood pressure noted to be 182/72. MD was notified and IV fluids D/C. Pt due to receive metoprolol at 0900. With continue to monitor pressure.
--- NOTE | 2023-07-13 07:45 | PC.NURSE ---
pt med reconciliation incomplete, MD aware. Pharmacy contacted at 0740 by this RN.
[2023-07-13 07:49] LABS: Glucose, Whole Blood 89 mg/dL (60-115)
[2023-07-13] MEDS: 0.9 % Sodium Chloride Flush 3 ML SYRINGE IVFLUSH ×2 (08:04→23:16)
[2023-07-13] MEDS: Metoprolol Tartrate 50 MG TABLET PO ×2 (08:04→23:16)
--- NOTE | 2023-07-13 09:48 | P.PNIM_ITS ---
Subjective Subjective Date of Service: 07/13/23 Interval History: feeling weak Physical Exam 2 Vital Signs: Vital Signs: Last Vital Signs Temp 99.3 F 07/13/23 07:24 Pulse 68 07/13/23 07:24 Resp 18 07/13/23 07:24 BP 182/72 H 07/13/23 07:24 Pulse Ox 92 07/13/23 07:24 O2 Del Method Room Air 07/13/23 07:24 BMI result Body Mass Index 25.4 General: AO X 3, tired appearing Resp: rhonchi bilateral, no accessory muscles used CVS: S1,S2,RRR GI: soft, non tender, non distended Neuro: motor grossly intact, alert Psych: appropriate affect, appropriate insight Objective Data Active Medications Acetaminophen (Acetaminophen 325 Mg Tablet) 650 mg PO Q6H PRN PRN Reason: Pain, Mild (Pain Scale 1-3) Guaifenesin/Dextromethorphan (Guaifenesin Dm 100/10/5 Ml 5 Ml Syrup) 5 ml PO Q4H PRN PRN Reason: Cough Metoprolol Tartrate (Metoprolol Tartrate 50 Mg Tablet) 50 mg PO BID [facility]; Protocol Last Admin: 07/13/23 08:04 Dose: 50 mg Documented By: CIELO Ondansetron HCl (Ondansetron Hcl 4 Mg/2 Ml Vial) 4 mg IVPUSH Q8H PRN PRN Reason: Nausea and Vomiting Senna (Sennosides 8.6 Mg Tablet) 17.2 mg PO BEDTIME PRN PRN Reason: Constipation Sodium Chloride (0.9 % Sodium Chloride Flush 3 Ml Syringe) [facility] Last Admin: 07/13/23 08:04 Dose: 3 ml Documented By: CIELO Labs 07/13/23 06:22 07/13/23 06:22 Labs: Laboratory Results - last 24 hr 07/12/23 07/12/23 07/12/23 18:02 19:16 19:24 MCV 86.0 MCH 28.5 MCHC 33.1 RDW 13.8 Plt Count 222 MPV 10.3 Immature Gran % (Auto) 0.3 Neut % (Auto) 71.4 Lymph % (Auto) 19.4 L [place] % (Auto) 8.7 Eos % (Auto) 0.1 Baso % (Auto) 0.1 Lymph # (Auto) 2.3 [place] # (Auto) 1.0 Eos # (Auto) 0.0 Baso # (Auto) 0.0 Abs Immat Gran (auto) 0.03 Absolute Neuts (auto) 8.5 H Absolute Nucleated RBC 0.000 Nucleated RBC % (auto) 0.0 PT 34.5 H INR 2.8 H APTT 42.6 H Anion Gap 15 Estim Creat Clear Calc 27.9 Estimated GFR 30 POC Glucose Random Glucose 119 H Calcium 8.6 D Magnesium 1.6 Total Bilirubin 0.5 AST 50 H ALT 32 Alkaline Phosphatase 58 Total Protein 6.3 L Albumin 3.2 L Urine Color Urine Appearance Urine pH Ur Specific [place] Urine Protein Urine Glucose (UA) Urine Ketones Urine Blood Urine Nitrite Ur Leukocyte Esterase Urine RBC Urine WBC Ur Squamous Epith Cells Urine Bacteria Hyaline Casts Granular Casts Influenza Type A (PCR) NEGATIVE Influenza Type B (PCR) NEGATIVE RSV RNA Qual (PCR) NEGATIVE SARS-CoV-2 RNA (RT-PCR) POSITIVE A 07/13/23 07/13/23 07/13/23 00:19 06:22 06:51 MCV 87.7 MCH 29.0 MCHC 33.1 RDW 13.9 Plt Count 194 MPV 10.7 Immature Gran % (Auto) 0.3 Neut % (Auto) 58.2 Lymph % (Auto) 29.7 [place] % (Auto) 10.4 Eos % (Auto) 1.2 Baso % (Auto) 0.2 Lymph # (Auto) 2.7 [place] # (Auto) 0.9 Eos # (Auto) 0.1 Baso # (Auto) 0.0 Abs Immat Gran (auto) 0.03 Absolute Neuts (auto) 5.3 Absolute Nucleated RBC 0.000 Nucleated RBC % (auto) 0.0 PT 34.6 H INR 2.8 H APTT Anion Gap 12 Estim Creat Clear Calc 35.0 Estimated GFR 39 POC Glucose Random Glucose 95 Calcium 7.9 L D Magnesium Total Bilirubin AST ALT Alkaline Phosphatase Total Protein Albumin Urine Color Yellow Urine Appearance Clear Urine pH 5.0 Ur Specific [place] 1.020 Urine Protein 300 (3+) H Urine Glucose (UA) Negative Urine Ketones Negative Urine Blood Small (1+) H Urine Nitrite Negative Ur Leukocyte Esterase Negative Urine RBC 0-2 Urine WBC 0-5 Ur Squamous Epith Cells 0-2 Urine Bacteria None Seen Hyaline Casts 6-10 Granular Casts Present Influenza Type A (PCR) Influenza Type B (PCR) RSV RNA Qual (PCR) SARS-CoV-2 RNA (RT-PCR) 07/13/23 07:44 MCV MCH MCHC RDW Plt Count MPV Immature Gran % (Auto) Neut % (Auto) Lymph % (Auto) [place] % (Auto) Eos % (Auto) Baso % (Auto) Lymph # (Auto) [place] # (Auto) Eos # (Auto) Baso # (Auto) Abs Immat Gran (auto) Absolute Neuts (auto) Absolute Nucleated RBC Nucleated RBC % (auto) PT INR APTT Anion Gap Estim Creat Clear Calc Estimated GFR POC Glucose 89 Random Glucose Calcium Magnesium Total Bilirubin AST ALT Alkaline Phosphatase Total Protein Albumin Urine Color Urine Appearance Urine pH Ur Specific [place] Urine Protein Urine Glucose (UA) Urine Ketones Urine Blood Urine Nitrite Ur Leukocyte Esterase Urine RBC Urine WBC Ur Squamous Epith Cells Urine Bacteria Hyaline Casts Granular Casts Influenza Type A (PCR) Influenza Type B (PCR) RSV RNA Qual (PCR) SARS-CoV-2 RNA (RT-PCR) Assessment and Plan (1) COVID-19: Status: Acute Plan 87M PMH coronary artery disease, hypertension, COPD, paroxysmal atrial fibrillation, diabetes, CKD 3 presented with weakness found to have acute kidney injury on CKD 3 and COVID JULIO on CKD 3 Due to poor intake and GI losses Monitor BMP COVID 19 complicated by weakness No hypoxia, symptomatic management, PT eval COPD Stable, continue inhalers Paroxysmal atrial fibrillation Continue Coumadin, metoprolol Diabetes insulin sliding scale Hypertension Holding Arb for JULIO DVT prophylaxis on Coumadin Full code reason for continued hospitalization: Not at baseline creatinine Quality Stroke Does the patient have a stroke diagnosis?: No VTE Prior VTE?: No VTE Risk Level:: Medical - moderate - high VTE Device Contraindication: Treatment Not Indicated VTE Drug Contraindication: N/A - Med Ordered
--- NOTE | 2023-07-13 10:46 | PHA.MEDREC ---
Pharmacy Consult ? Medication Reconciliation Pharmacy has completed the medication reconciliation. Med rec complete using claim history and spoke to spouse Arelis De La Cruz over the phone ([phone]) to confirm meds. She had a list and was able to confirm medications and doses. Warfarin is dosed 5 mg on mowefr, and 2.5 mg on other days.
[2023-07-13 11:01] LABS: Glucose, Whole Blood 160 mg/dL (60-115)
[2023-07-13 11:20] VITALS: BP 188/78; PULSE 67; RESP 20; TEMP 37.1; O2SAT 93
[2023-07-13] MEDS: guaiFENesin DM 100/10/5 ML 5 ML SYRUP PO ×2 (11:25→23:24)
[2023-07-13] MEDS: Insulin Lispro 100 UNIT/ML 3 ML VIAL SUBCUT (11:26)
--- NOTE | 2023-07-13 14:17 | MHC.CM.PN ---
IMM 07/12. Pt self-care, lives at home with his /HCP, copy of HCP requested. Pt has a right prosthetic leg, a cane, walker, and a wheelchair. Pt states he will need assistance with transportation home at D/C. DP: likely return home vs with new VNA services. PCP: Dr. Boggs Po
[2023-07-13 15:27] VITALS: BP 172/86; PULSE 64; RESP 20; TEMP 37.4; O2SAT 93
[2023-07-13 16:22] LABS: Glucose, Whole Blood 99 mg/dL (60-115)
[2023-07-13] MEDS: Warfarin Sodium 5 MG TABLET PO (18:31)
[2023-07-13 20:00] VITALS: BP 166/77; PULSE 86; RESP 17; TEMP 37.3; O2SAT 92
[2023-07-13 20:16] LABS: Glucose, Whole Blood 136 mg/dL (60-115)
[2023-07-13] MEDS: Tamsulosin HCL 0.4 MG CAPSULE PO (23:16)
[2023-07-14] VITALS: BP 183/85; PULSE 73; RESP 17; TEMP 37.1; O2SAT 93
[2023-07-14 04:00] VITALS: BP 165/69; PULSE 95; RESP 16; TEMP 37; O2SAT 94
[2023-07-14 06:49] LABS: Hematocrit 31.4 % (42.0-52.0); Hemoglobin 10.6 g/dl (14.0-18.0); Mean Corpuscular HGB Conc 33.8 g/dl (31.0-36.0); Mean Corpuscular Hemoglobin 29.2 pg (27.0-33.0); Mean Corpuscular Volume 86.5 fL (80.0-98.0); Mean Platelet Volume 10.6 fL (9.4-12.4); Platelet Count 211 X10*3/uL (160-400); Red Blood Count 3.63 X10*6/uL (4.60-5.80); Red Cell Distribution Width 13.8 % (11.0-16.0); White Blood Count 7.3 X10*3/uL (4.8-10.8)
[2023-07-14 07:00] VITALS: BP 158/62; PULSE 62; RESP 20; TEMP 37.2; O2SAT 92
[2023-07-14 07:04] LABS: INTERNATIONAL NORM RATIO 2.5 (0.9-1.1); Prothrombin Time 30.9 SEC (11.1-13.3)
[2023-07-14 07:05] LABS: Anion Gap 12 (12-20); Blood Urea Nitrogen 35 mg/dL (9-16); Calcium 8.4 mg/dL (8.4-10.2); Carbon Dioxide 21 mmol/L (22-29); Chloride 110 mmol/L (96-108); Creatinine Clr Calc Pharmacy 41.1; Estimated Glomerular Filt Rate 47; Glucose Fasting 97 mg/dL (60-99); Potassium 4.1 mmol/L (3.3-5.1); Sodium 139 mmol/L (135-145)
[2023-07-14 07:10] LABS: Glucose, Whole Blood 97 mg/dL (60-115)
--- NOTE | 2023-07-14 08:40 | P.DS_ITS ---
DS: Providers Provider Date of Service: 07/14/23 Date of admission: 07/12/23 20:33 Primary care physician: Flakita Stewart MD DS: Diagnosis Discharge Diagnosis (1) COVID-19: Status: Acute DS: Summary Hospital Course Hospital Course: from initial hpi: 87-year-old male with history of coronary artery disease, hypertension, COPD, paroxysmal atrial fibrillation anticoagulated with Coumadin, [id number] type 2 diabetes, CKD stage III diagnosed with COVID-19 on 07/06 or 07/07 per family report presenting to the ED earlier today due to worsening symptoms including nausea, vomiting, diarrhea, generalized weakness, and poor p.o. intake. He states initially has cough for 2 days before presenting to urgent care with positive covid-19 diagnosis. also sick with COVID-19. He continue with nonproductive cough. Has also been having daily episodes of diarrhea and was prescribed Imodium with good effect. Had 1 episode of vomiting last night without any recurrence. He has had decreased p.o. intake and has been feeling generally weak and unwell. Denies any fevers, chills, sore throat, congestion, abdominal pain, melena, hematochezia, urinary symptoms, shortness of breath, wheezing, lightheadedness, or chest pain. He has not had any diarrhea in 24 hours. On arrival, vital signs stable. There is a mild leukocytosis of 11.9. Creatinine 2.12, was 1.84 on 07/05 but baseline appears to be around 1.48. BUN 50, electrolyte levels normal. Negative for influenza and RSV but positive for COVID-19. Chest x-ray unremarkable. In the ED, has received 1 L IV NS and ondansetron. He will be admitted for further management of acute kidney injury in setting of poor p.o. intake related to COVID-19. hospital course: Patient was admitted for acute kidney injury on CKD 3 due to poor p.o. intake and GI losses in the setting of COVID-19. Patient's losartan and hydrochlorothiazide were held he was given some hydration, creatinine returned to baseline. Patient's weakness and symptoms significantly improved. He will be discharged home. For COPD was continued on his inhalers. For paroxysmal atrial fibrillation he was continued on metoprolol and Coumadin. For diabetes he was continued on insulin. For hypertension was continued on metoprolol, am lodipine, his losartan and hydrochlorothiazide had been held for JULIO but they can be restarted as outpatient. Time Attestation Discharge Coordination Time (in mins): 35 Quality: Safe Use of Opioids Does Pt have an Active Cancer Diagnosis on the Problem List?: No Quality: Stroke Does the patient have a stroke diagnosis?: No Physical Exam Vital Signs: Vital Signs: Last Vital Signs Temp 98.9 F 07/14/23 07:00 Pulse 62 07/14/23 07:00 Resp 20 07/14/23 07:00 BP 158/62 H 07/14/23 07:00 Pulse Ox 92 07/14/23 07:00 O2 Del Method Room Air 07/14/23 07:00 BMI result Body Mass Index 25.4 General: AO X 3, tired appearing Resp: rhonchi bilateral, no accessory muscles used CVS: S1,S2,RRR GI: soft, non tender, non distended Neuro: motor grossly intact, alert Psych: appropriate affect, appropriate insight right aka DS: Data Data Completed and Pending Labs on day of discharge: Laboratory Results - last 24 hr 07/13/23 07/13/23 07/13/23 10:56 16:17 20:00 WBC RBC Hgb Hct MCV MCH MCHC RDW Plt Count MPV Absolute Nucleated RBC Nucleated RBC % (auto) PT INR Sodium Potassium Chloride Carbon Dioxide Anion Gap BUN Creatinine Estim Creat Clear Calc Estimated GFR POC Glucose 160 H 99 136 H Fasting Glucose Calcium 07/14/23 07/14/23 06:41 07:07 WBC 7.3 RBC 3.63 L Hgb 10.6 L Hct 31.4 L MCV 86.5 MCH 29.2 MCHC 33.8 RDW 13.8 Plt Count 211 MPV 10.6 Absolute Nucleated RBC 0.000 Nucleated RBC % (auto) 0.0 PT 30.9 H INR 2.5 H Sodium 139 Potassium 4.1 Chloride 110 H Carbon Dioxide 21 L Anion Gap 12 BUN 35 H Creatinine 1.44 H Estim Creat Clear Calc 41.1 Estimated GFR 47 POC Glucose 97 Fasting Glucose 97 Calcium 8.4 D Discharge Plan Discharge Anticipated Discharge Date/Time: 07/14/23 08:38 Patient Disposition: Home, Self-Care Discharge Diagnosis: covid, julio Referrals: Po,Flakita Juarez MD [Primary Care Provider] - 1 Week Discharge Medications: Continued Incruse Ellipta 62.5 mcg/actuation blister with device 1 inh PO BEDTIME Qty: 90 3RF atorvastatin 40 mg tablet 40 mg PO DAILY Qty: 90 3RF metoprolol tartrate 50 mg tablet 50 mg PO BID 90 Days Qty: 180 3RF metformin 500 mg tablet 500 mg PO DAILY Qty: 90 3RF amlodipine 10 mg tablet 10 mg PO DAILY 90 Days Qty: 90 2RF losartan 50 mg tablet 50 mg PO DAILY Qty: 90 3RF glipizide 5 mg tablet 5 mg PO DAILY glipizide 5 mg tablet 2.5 mg PO BEDTIME warfarin 5 mg tablet 2.5 mg PO SUTUTHSA@1800 warfarin 5 mg tablet 5 mg PO MOWEFR@1800 Protocol: Dose Management Condition: Thursday (Week One) Dose/Route: 2.5 mg Instruction: 0.5 x 5 mg tablets Condition: Thursday Dose/Route: 5 mg Instruction: 1 x 5 mg tablet Condition: Thursday Dose/Route: 2.5 mg Instruction: 0.5 x 5 mg tablets Condition: Thursday Dose/Route: 5 mg Instruction: 1 x 5 mg tablet Condition: Dose/Route: 2.5 mg Instruction: 0.5 x 5 mg tablets Condition: Thursday Dose/Route: 5 mg Instruction: 1 x 5 mg tablet Condition: Thursday Dose/Route: 2.5 mg Instruction: 0.5 x 5 mg tablets Condition: Thursday (Week Two) Dose/Route: 2.5 mg Instruction: 0.5 x 5 mg tablets Condition: Thursday Dose/Route: 5 mg Instruction: 1 x 5 mg tablet Condition: Thursday Dose/Route: 2.5 mg Instruction: 0.5 x 5 mg tablets Condition: Thursday Dose/Route: 5 mg Instruction: 1 x 5 mg tablet Condition: Dose/Route: 2.5 mg Instruction: 0.5 x 5 mg tablets Condition: Thursday Dose/Route: 5 mg Instruction: 1 x 5 mg tablet Condition: Thursday Dose/Route: 2.5 mg Instruction: 0.5 x 5 mg tablets Protocol Text: Adjustment Start Date: Thursday06/19/23 INR Value: 2.7 INR Date: 06/19/23 Recheck Date: 07/17/23 cholecalciferol (vitamin D3) 50 mcg (2,000 unit) capsule 50 mcg PO DAILY (DME) lancets 28 gauge misc See Rx Instructions topical DAILY Qty: 100 Rx Instructions: As directed fluticasone propion-salmeterol [Wixela Inhub] 500-50 mcg/dose blister with device 1 inh inhalation BID Qty: 60 7RF albuterol sulfate 90 mcg/actuation HFA aerosol inhaler 2 puff inhalation Q4H PRN (Reason: shortness of breath or wheezing) Qty: 8.5 0RF hydrochlorothiazide 12.5 mg tablet 12.5 mg PO DAILY Qty: 90 3RF ketoconazole 2 % shampoo 1 appl topical DAILY PRN (Reason: Rash) tamsulosin 0.4 mg capsule 0.4 mg PO BEDTIME 90 Days Qty: 90 3RF Discharge Orders: Discharge Order (Routine); Ordered 07/14/23 Ordered By: Stan Cook Diet: Advance to usual diet Activity on Discharge: As tolerated Stand Alone Forms: Patient Portal Discharge page Print Language: Yakut Care Plan Goals: recovery Health Concerns: covid, julio Plan of Treatment: symptomatic management Assessment: see above
[2023-07-14 09:50] VITALS: BP 158/62; PULSE 64
[2023-07-14] MEDS: Atorvastatin Calcium 40 MG TABLET PO (09:50)
[2023-07-14] MEDS: Cholecalciferol (Vitamin D3) 25 MCG TABLET 50 MCG PO (09:50)
[2023-07-14] MEDS: Metoprolol Tartrate 50 MG TABLET PO (09:50)
[2023-07-14] MEDS: amLODIPine Besylate 10 MG TABLET PO (09:50)
[2023-07-14] MEDS: 0.9 % Sodium Chloride Flush 3 ML SYRINGE IVFLUSH (09:51)
[2023-07-14 10:50] VITALS: BP 128/60; PULSE 77; RESP 18; TEMP 37.4; O2SAT 95
[2023-07-14 10:53] LABS: Glucose, Whole Blood 170 mg/dL (60-115)
[2023-07-14] MEDS: Insulin Lispro 100 UNIT/ML 3 ML VIAL SUBCUT (11:43)
[2023-07-14 12:14] VITALS: BP 128/60; PULSE 77; O2SAT 95
--- NOTE | 2023-07-14 13:29 | W.MHC.F2F ---
Service Date Service Date: 07/14/23 Encounter Date of encounter: 07/14/23 Reasons for Services Signs and symptoms assessed: weakness Reason for senior living: medication management, medication treatment and teach disease management Homebound: Leaving the home is medically contraindicated at this time without the asist of a device and/or another person due th the listed conditions above and below. Reason homebound: unsteady gait / fall risk Certification: Based on the above findings, I certify that this patient is confined to the home and needs intermittent senior living care, physical therapy and/or speech therapy, or continues to need occupational therapy. The patient is under my care, and I have initiated the establishment of the plan of care. The patient will be followed by a physician who will periodically review the plan of care. Time Spent With Patient Time: Total time managing care of this patient today ____ minutes.
--- NOTE | 2023-07-14 13:31 | MHC.CM.PN ---
Pt has been medically cleared for DC, he will go home via family transport and have home care services from [facility]. He has services from [facility], task sent to review and discuss with pt.
== END 2023-07-14 16:00 | disposition home health service (06) | DRG 640 ==
LOC: HO.ED 19:21 → HO.EDOVER 20:45 → HO.IMC 07-13 00:56
PROVIDERS: Physician Assistant; Admitting Provider Physician Assistant; Emergency Provider Internal Medicine; PCP Internal Medicine; Visit Provider Internal Medicine
DX: E86.1 Hypovolemia (principal); U07.1 COVID-19; N17.9 Acute kidney failure, unspecified; I12.9 Hypertensive chronic kidney disease with stage 1 through stage 4 chronic kidney disease, or unspecified chronic kidney disease; J44.9 Chronic obstructive pulmonary disease, unspecified; E11.22 Type 2 diabetes mellitus with diabetic chronic kidney disease; I48.0 Paroxysmal atrial fibrillation; I25.10 Atherosclerotic heart disease of native coronary artery without angina pectoris; N18.30 Chronic kidney disease, stage 3 unspecified; Z79.01 Long term (current) use of anticoagulants; Z79.51 Long term (current) use of inhaled steroids; Z79.84 Long term (current) use of oral hypoglycemic drugs; Z79.899 Other long term (current) drug therapy
CPT/HCPCS: 0241U; 36415; 71045; 80048; 80053; 81001; 82947; 83735; 85025; 85027; 85610; 85730; 97162; 99285; J2405

== ENCOUNTER → 2023-07-12 20:33 | Outpatient (BNV) | payer MEDICARE, OTHER, SELFPAY | PROVIDERS: Admitting Provider Physician Assistant; Emergency Provider Internal Medicine; PCP Internal Medicine; Visit Provider Physician Assistant | DX: U07.1 COVID-19 (principal) | CPT/HCPCS: 99223; 99233; 99239; G0180 ==

== ENCOUNTER → 2023-07-17 09:15 | Outpatient (BNVA) | payer MEDICARE, OTHER, SELFPAY | PROVIDERS: PCP Internal Medicine; Visit Provider Internal Medicine | DX: I48.0 Paroxysmal atrial fibrillation (principal); Z51.81 Encounter for therapeutic drug level monitoring; Z79.01 Long term (current) use of anticoagulants | CPT/HCPCS: 85610 ==

== ENCOUNTER 2023-07-22 09:12 | Outpatient (AMB) | payer MEDICARE, OTHER, SELFPAY ==
--- NOTE | 2023-07-22 09:13 | MHC.PC.OV ---
Intake Visit Reasons: Discharge Follow Up COVID pos. [facility] Intake Note: When speaking with the patient he seemed very agitated. I asked what is current symptoms are and he states he is just tired and short tempered. Allergies lisinopril [LISINOPRIL] Allergy (Unknown, Verified 07/17/23 09:15) HIVES Tobacco use date assessed: 04/09/23 Fall risk assessment: No Falls in past year Last assessed Fall Risk: 07/22/23 Dental Screening Dental Screen Date: 04/09/23 HPI Discharge Follow Up COVID pos. [facility] HPI Details 87-year-old male with controlled diabetes mellitus coronary artery disease hypertension hypercholesterolemia COPD atrial fibrillation aortic stenosis has a history of right [id number] amputation coming in for follow-up through Telehealth. Last seen in March 2023. Review of the notes was recently in the hospital in July 13 for COVID-19 infection patient presented with nausea vomiting diarrhea generalized weakness and poor p.o. intake had half 2 days before and was diagnosed with COVID-19 positive noted to have dehydration chest x-ray was negative had fluid infusion blood pressure medications were held patient also was seen by Urology in May had some urgency on tamsulosin.. 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 Mother No problems noted. Social History Household Members: Spouse Housing: House Do you presently have visiting nurse or other home services: No Alcohol intake: never Patient Tobacco Use Status: Former Tobacco user Tobacco use type: Cigarette Years Smoked: quit 1987 e-Cigarette/Vaping Use: Never Used Second Hand Smoke Exposure: No service: No Current occupational status: retired Cognitive needs: Yes (cane/walker/wheelchair) Hearing needs: Yes Vision needs: Yes Questionnaire PHQ-9 Over the last 2 weeks, how often have you been bothered by any of the following problems? 1. Little interest or pleasure in doing things: not at all 2. Feeling down, depressed, or hopeless: not at all 3. Trouble falling or staying asleep, or sleeping too much: not at all 4. Feeling tired or having little energy: not at all 5. Poor appetite or overeating: not at all 6. Feeling bad about yourself - or that you are a failure or have let yourself or your family down: not at all 7. Trouble concentrating on things, such as reading the newspaper or watching television: not at all 8. Moving or speaking so slowly that other people could have noticed. Or the opposite - being so fidgety or restless that you have been moving around a lot more than usual: not at all 9. Thoughts that you would be better off or of hurting yourself in some way: not at all Total score: 0 Depression Screening Interpretation: Negative Depression Screening Done: Yes 33629 - PHQ-9 Billing: Yes Source: Developed by Drs. Omega Negron, Shannan Couch, Armond Ceballos and colleagues, with an educational klaudia from [employer]. Thrive Questionnaire Date Thrive assessed: 07/13/23 ANDREY-7 AMB Questionnaire ANDREY-7 Date ANDREY - 7 assessed: 07/22/23 Feeling nervous, anxious, or on edge: 1 = Several days Not being able to stop or control worryin = Not at all Worrying too much about different things: 0 = Not at all Trouble relaxin = Not at all Being so restless that it is hard to sit still: 0 = Not at all Becoming easily annoyed or irritable: 2 = More than half the days Feeling afraid as if something awful might happen: 0 = Not at all Total ANDREY-7 score (0-4 normal; 5-9 mild; 10-14 moderate; 15-21 severe): 3 Source: Developed by Drs. Omega Negron, Shannan Couch, Armond Ceballos and colleagues, with an educational klaudia from [employer]. Physical exam (Primary Care) Tobacco/Smoking Status: Tobacco use Status Tobacco use date assessed 04/09/23 07/22/23 09:16 Patient Tobacco Use Status Former Tobacco user 07/22/23 09:16 Tobacco use type Cigarette 07/22/23 09:16 e-Cigarette/Vaping Use Never Used 07/22/23 09:16 PHQ-9: PHQ-9 Score PHQ-9: Total score 0 07/22/23 09:16 Depression Screening Interpretation: Negative Thrive Assessment: Date of Thrive Assessment Date Thrive assessed 07/13/23 07/22/23 09:16 Telehealth Telehealth Location of provider rendering services: practice address Location of patient: address on file Patient Identification confirmed using: Name, : Yes Telehealth method: voice only Patient verbally consented to treatment: Yes Patient verbally consented to billing insurance company: Yes Patient informed of any privacy concerns related to visit: Yes Minutes spent on Phone/Video with Pt.: 25 Assessment and Plan Assessment & Plan (1) COVID-19: Comment: 07/12/2023 Code(s): U07.1 - COVID-19 Plan: Resolving slowly advised to keep well hydrated, continues to cough but it is better is productive. (2) Aortic stenosis: Comment: April 2021 moderate 1.2 cm squared March 2022he left ventricular systolic function is low normal. The calculated ejection fraction is 54% by biplane method. - The basal inferior and basal inferolateral segments are akinetic. - There is moderate to severe aortic valve stenosis. 1.0 cm2 October 2022 1.11 cm squared Code(s): I35.0 - Nonrheumatic aortic (valve) stenosis Plan: Continuing to monitor October 2022 will have next echocardiogram (3) Paroxysmal atrial fibrillation: Comment: December 2012 Code(s): I48.0 - Paroxysmal atrial fibrillation Plan: Continuing anticoagulation (4) COPD (chronic obstructive pulmonary disease): Code(s): J44.9 - Chronic obstructive pulmonary disease, unspecified Qualifiers: COPD type: emphysema Emphysema type: unspecified Qualified Code(s): J43.9 - Emphysema, unspecified Plan: Continuing the inhaler as needed (5) Coronary artery disease: Comment: An STEMI December [address] Chaudhari Code(s): I25.10 - Atherosclerotic heart disease of [place] coronary artery without angina pectoris Qualifiers: Coronary Disease-Associated Artery/Lesion type: [place] artery [place] vs. transplanted heart: [place] heart Associated angina: without angina Qualified Code(s): I25.10 - Atherosclerotic heart disease of [place] coronary artery without angina pectoris Plan: Control the cholesterol, weight, blood pressure, diabetes continue with anticoagulation (6) Hypertension: Code(s): I10 - Essential (primary) hypertension Qualifiers: Hypertension type: essential hypertension Qualified Code(s): I10 - Essential (primary) hypertension Plan: Continue with blood pressure medication. Decrease salt intake and exercise (7) Hypercholesterolemia: Code(s): E78.00 - Pure hypercholesterolemia, unspecified Plan: Avoid fried foods, chicken skin, eggs, butter margarine, pastries and meat. Be it pork or beef they have a lot of cholesterol June 2023 last blood work LDL goal of 60 below (8) Type 2 diabetes mellitus with hyperglycemia: Comment: Dr. Miguel Code(s): E11.65 - Type 2 diabetes mellitus with hyperglycemia Qualifiers: Diabetes mellitus mcfp insulin use: without mcfp use Qualified Code(s): E11.65 - Type 2 diabetes mellitus with hyperglycemia Plan: Decrease the amount of carbohydrate intake, pasta, bread, rice and potatoes are all sugar and that is aside from all the sweet stuff, remember that fruits are good but they are Sweet also. Hemoglobin A1c has been controlled Coding Level of Care Code Tele Est Pt Level 4 (77375) Diagnoses COVID-19 U07.1 Aortic stenosis I35.0 Paroxysmal atrial fibrillation I48.0 Pulmonary emphysema, unspecified emphysema type J43.9 COPD type: emphysema Emphysema type: unspecified Coronary artery disease involving [place] coronary artery of [place] heart without angina pectoris I25.10 Coronary Disease-Associated Artery/Lesion type: [place] artery [place] vs. 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
== END 2023-07-22 10:57 | disposition home or self-care (01) ==
LOC: HO.HMGH 09:12
PROVIDERS: PCP Internal Medicine; Visit Provider Internal Medicine
DX: I48.0 Paroxysmal atrial fibrillation (principal); J43.9 Emphysema, unspecified; E11.65 Type 2 diabetes mellitus with hyperglycemia; U07.1 COVID-19; I35.0 Nonrheumatic aortic (valve) stenosis; I25.10 Atherosclerotic heart disease of native coronary artery without angina pectoris; I10 Essential (primary) hypertension; E78.00 Pure hypercholesterolemia, unspecified
CPT/HCPCS: 99443

== ENCOUNTER → 2023-07-24 11:11 | Outpatient (BNVA) | payer MEDICARE, OTHER, SELFPAY | PROVIDERS: PCP Internal Medicine; Visit Provider Internal Medicine ==

== ENCOUNTER 2023-07-30 13:31 | Outpatient (AMB) | payer MEDICARE, OTHER, SELFPAY ==
--- NOTE | 2023-07-30 14:50 | MHC.OFFVISCO ---
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 Denies any signs and symptoms of any unusual bruising, bleeding or clotting Medication or supplements: no other changes Diet: better Activity: as tolerated Dose: keep same dose 5mg mwf/ 2.5mg x 4 days Dosing and diet instructions given with next retest date of 1 week, Nurse and patient verbalizes understanding of instructions given with accurate read back Anti-Coag Initial Assessment Social Hx Patient Tobacco Use Status: Former Tobacco user Tobacco use type: Cigarette alcohol intake: never Coding Level of Care Code Est Patient Level 1 Diagnoses Current use of anticoagulant therapy Z79.01 Results AMB INR Fingerstick AMB INR Fingerstick 2.2 Last Edit by Mine Ruby RN on 07/30/23 14:47 [facility]NA Assessment & Plan Assessment & Plan (1) Current use of anticoagulant therapy: Code(s): Z79.01 - long term care administrator (current) use of anticoagulants Category: Medical
== END 2023-07-30 15:00 | disposition home or self-care (01) ==
LOC: HO.ACS 13:31
PROVIDERS: PCP Internal Medicine; Visit Provider Internal Medicine
DX: Z79.01 Long term (current) use of anticoagulants (principal)

== ENCOUNTER → 2023-07-30 13:31 | Outpatient (BNVA) | payer MEDICARE, OTHER, SELFPAY | PROVIDERS: PCP Internal Medicine; Visit Provider Internal Medicine | DX: I48.0 Paroxysmal atrial fibrillation (principal); Z51.81 Encounter for therapeutic drug level monitoring; Z79.01 Long term (current) use of anticoagulants | CPT/HCPCS: 99211 ==

== ENCOUNTER 2023-08-06 11:43 | Outpatient (REF) | payer MEDICARE, OTHER, SELFPAY ==
[2023-08-06 16:50] LABS: MANUAL DIFF FLAG NO
[2023-08-06 18:10] LABS: Basophils Absolute Auto 0.1 X10*3/uL (0.0-0.2); Basophils Percent Auto 0.5 % (0-2); Eosinophils Absolute Auto 0.2 X10*3/uL (0.0-0.4); Eosinophils Percent Auto 1.5 % (0-4); Hematocrit 35.4 % (42.0-52.0); Hemoglobin 11.5 g/dl (14.0-18.0); Imm Gran Abs Auto 0.04 X10*3/uL (0.00-0.03); Imm Gran Pct Auto 0.4 % (0.0-0.4); Immature Retic Fraction 13.9 % (2.3-13.4); Lymphocytes Absolute Auto 3.3 X10*3/uL (1.2-4.9); Mean Corpuscular HGB Conc 32.5 g/dl (31.0-36.0); Mean Corpuscular Hemoglobin 28.3 pg (27.0-33.0); Mean Corpuscular Volume 87.2 fL (80.0-98.0); Mean Platelet Volume 10.7 fL (9.4-12.4); Monocytes Percent Auto 9.8 % (2-11); Neutrophils Percent Auto 56.8 % (45-73); Platelet Count 412 X10*3/uL (160-400); Red Blood Count 4.06 X10*6/uL (4.60-5.80); Red Cell Distribution Width 14.2 % (11.0-16.0); Retic HGB Equivalent 31.4 pg (30.0-35.0); Reticulocyte Percent 1.5 % (0.5-1.8); Reticulocytes Absolute 0.061 X10*6/uL (0.026-0.095); White Blood Count 10.6 X10*3/uL (4.8-10.8)
[2023-08-06 18:32] LABS: Alanine Aminotransferase 21 U/L (0-40); Albumin Level 3.2 g/dL (3.5-5.0); Alkaline Phosphatase 64 U/L (39-117); Anion Gap 18 (12-20); Aspartate Amino Transferase 28 U/L (5-37); Bilirubin Total 0.5 mg/dL (0.0-1.0); Blood Urea Nitrogen 52 mg/dL (9-16); Calcium 9.5 mg/dL (8.4-10.2); Carbon Dioxide 20 mmol/L (22-29); Chloride 105 mmol/L (96-108); Estimated Glomerular Filt Rate 29; Glucose Random 81 mg/dL (60-115); Iron 64 mcg/dL (45-160); Percent Iron Saturation 30 % (15-50); Potassium 4.7 mmol/L (3.3-5.1); Sodium 138 mmol/L (135-145); Total Iron Binding Capacity 211 mcg/dL (228-428); Total Protein 7.6 g/dL (6.5-8.0); Unsaturated Iron Binding 147 ug/dL
[2023-08-06 18:50] LABS: Ferritin 456 ng/mL (20-250); Free T4 (Free Thyroxine) 1.35 ng/dL (0.71-1.85)
[2023-08-06 19:02] LABS: Folate 6.6 ng/mL (> or = 4.0); Vitamin B12 671 pg/mL (200-900)
== END 2023-08-06 11:44 | disposition home or self-care (01) ==
LOC: HO.LAB 11:43
PROVIDERS: Absent Provider Internal Medicine; PCP Internal Medicine; Visit Provider Internal Medicine
DX: I48.0 Paroxysmal atrial fibrillation (principal); E11.65 Type 2 diabetes mellitus with hyperglycemia; Z51.81 Encounter for therapeutic drug level monitoring; Z79.01 Long term (current) use of anticoagulants
CPT/HCPCS: 36415; 80053; 82607; 82728; 82746; 83540; 84439; 84443; 85025; 85045

== ENCOUNTER 2023-08-06 14:57 | Outpatient (AMB) | payer MEDICARE, OTHER, SELFPAY ==
[2023-08-06 15:13] VITALS: BP 108/52; PULSE 75; O2SAT 95
--- NOTE | 2023-08-06 15:13 | A.OFFPC_ITS ---
Vital Signs 08/06/23 15:13 Height 6 ft BMI Reason not done Patient refused/unable BP 108/52 L Blood Pressure Location Rt brachial Position Sitting Pulse 75 Pulse Source Pulse Oximeter Pulse Oximetry (%) 95 Oxygen Delivery Method Room Air Intake Visit Reasons: Phantom Pain Allergies lisinopril [LISINOPRIL] Allergy (Unknown, Verified 08/06/23 15:22) HIVES Tobacco use date assessed: 04/09/23 Fall risk assessment: No Falls in past year Last assessed Fall Risk: 08/06/23 Dental Screening Dental Screen Date: 04/09/23 HPI Phantom Pain HPI Details 87-year-old male with diabetes mellitus controlled coronary artery disease hypertension hypercholesterolemia COPD atrial fibrillation aortic stenosis coming in for follow-up. Last seen through Telehealth July 2023 for COVID-19 infection. Patient is here for follow-up. Patient was in the hospital in 07/12/2023 for COVID-19 had acute kidney injury where in and blood pressure medications were held. 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 Mother No problems noted. Social History Household Members: Spouse Housing: House Do you presently have visiting nurse or other home services: No Alcohol intake: never Patient Tobacco Use Status: Former Tobacco user Tobacco use type: Cigarette Years Smoked: quit 1987 e-Cigarette/Vaping Use: Never Used Second Hand Smoke Exposure: No service: No Current occupational status: retired Cognitive needs: Yes (cane/walker/wheelchair) Hearing needs: Yes Vision needs: Yes Questionnaire Thrive Questionnaire Date Thrive assessed: 07/13/23 ANDREY-7 AMB Questionnaire ANDREY-7 Date ANDREY - 7 assessed: 07/22/23 Source: Developed by Drs. Omega Negron, Shannan Couch, Armond Ceballos and colleagues, with an educational klaudia from [employer]. Physical exam (Primary Care) Vital Signs: Last Vital Signs Pulse 75 08/06/23 15:13 BP 108/52 L 08/06/23 15:13 Pulse Ox 95 08/06/23 15:13 Oxygen Delivery Method Room Air 08/06/23 15:13 Tobacco/Smoking Status: Tobacco use Status Tobacco use date assessed 04/09/23 08/06/23 15:13 Patient Tobacco Use Status Former Tobacco user 08/06/23 15:13 Tobacco use type Cigarette 08/06/23 15:13 e-Cigarette/Vaping Use Never Used 08/06/23 15:13 Thrive Assessment: Date of Thrive Assessment Date Thrive assessed 07/13/23 08/06/23 15:13 Const General: alert; No acute distress Eyes Conjunctivae: conjunctivae normal Resp Auscultation: clear to auscultation bilaterally Cardio Rate: regular rate Rhythm: regular rhythm GI Inspection: Yes normal to inspection Results AMB INR Fingerstick AMB INR Fingerstick 2.8 Last Edit by Elinor Obrien RN on 08/06/23 11:47 Assessment and Plan Assessment & Plan (1) Type 2 diabetes mellitus with hyperglycemia: Comment: Dr. Miguel Code(s): E11.65 - Type 2 diabetes mellitus with hyperglycemia Qualifiers: Diabetes mellitus fdc insulin use: without terminal operator use Qualified Code(s): E11.65 - Type 2 diabetes mellitus with hyperglycemia Plan: Decrease the amount of carbohydrate intake, pasta, bread, rice and potatoes are all sugar and that is aside from all the sweet stuff, remember that fruits are good but they are Sweet also. Presently on glipizide metformin (2) Coronary artery disease: Comment: An STEMI December [address]CA stent [address] Chaudhari Code(s): I25.10 - Atherosclerotic heart disease of [place] coronary artery without angina pectoris Qualifiers: Coronary Disease-Associated Artery/Lesion type: [place] artery [place] vs. transplanted heart: [place] heart Associated angina: without angina Qualified Code(s): I25.10 - Atherosclerotic heart disease of [place] coronary artery without angina pectoris Plan: Control the cholesterol, weight, blood pressure, diabetes on Coumadin (3) Hypertension: Code(s): I10 - Essential (primary) hypertension Qualifiers: Hypertension type: essential hypertension Qualified Code(s): I10 - Essential (primary) hypertension Plan: Continue with blood pressure medication. Decrease salt intake and exercise metoprolol 50 mg twice a day losartan 50 mg once a day hydrochlorothiazide 12.5 mg once a day which were held during admission for COVID-19 infection (4) Hypercholesterolemia: Code(s): E78.00 - Pure hypercholesterolemia, unspecified Plan: Avoid fried foods, chicken skin, eggs, butter margarine, pastries and meat. Be it pork or beef they have a lot of cholesterol atorvastatin 40 mg once a day (5) COPD (chronic obstructive pulmonary disease): Code(s): J44.9 - Chronic obstructive pulmonary disease, unspecified Qualifiers: COPD type: emphysema Emphysema type: unspecified Qualified Code(s): J43.9 - Emphysema, unspecified Plan: Continue with inhalers (6) Paroxysmal atrial fibrillation: Comment: December 2012 Code(s): I48.0 - Paroxysmal atrial fibrillation Plan: Continue with anticoagulation (7) Aortic stenosis: Comment: April 2021 moderate 1.2 cm squared March 2022he left ventricular systolic function is low normal. The calculated ejection fraction is 54% by biplane method. - The basal inferior and basal inferolateral segments are akinetic. - There is moderate to severe aortic valve stenosis. 1.0 cm2 October 2022 1.11 cm squared Code(s): I35.0 - Nonrheumatic aortic (valve) stenosis Plan: October 2022 last echocardiogram. (8) History of right above knee amputation: Comment: 2003 Dr.Matthew Morris Code(s): Z89.611 - Acquired absence of right leg above knee (9) Shingles: Comment: R lower back to the R abdomen 08/06/2023 Code(s): B02.9 - Zoster without complications Orders: Orders IRON PROFILE Today E11.65 - Type 2 diabetes mellitus with hyperglycemia Free T4 (Free Thyroxine) Today E11.65 - Type 2 diabetes mellitus with hyperglycemia Complete Blood Count Auto Diff Today E11.65 - Type 2 diabetes mellitus with hyperglycemia Comprehensive Met. Panel Today E11.65 - Type 2 diabetes mellitus with hyperglycemia Ferritin Today E11.65 - Type 2 diabetes mellitus with hyperglycemia Reticulocyte Count Today E11.65 - Type 2 diabetes mellitus with hyperglycemia Thyroid Stimulating Hormone Today E11.65 - Type 2 diabetes mellitus with hyperglycemia UA CC w/rflx Micro + Cult Today E11.65 - Type 2 diabetes mellitus with hyperglycemia, R30.0 - Dysuria Vitamin B12 and Folate Today E11.65 - Type 2 diabetes mellitus with hyperglycemia Medications: New tramadol 50 mg PO TID 30 days PRN 90 tabs 0RF pain B02.9 - Zoster without complications, M17.9 - Osteoarthritis of knee, unspecified Coding Level of Care Code Est Pt Level 4 (78610) Diagnoses Type 2 diabetes mellitus with hyperglycemia, without long-term current use of insulin E11.65 Diabetes mellitus fdc insulin use: without fdc use Coronary artery disease involving [place] coronary artery of [place] heart without angina pectoris I25.10 Coronary Disease-Associated Artery/Lesion type: [place] artery [place] vs. transplanted heart: [place] heart Associated angina: without angina Essential hypertension I10 Hypertension type: essential hypertension Hypercholesterolemia E78.00 Pulmonary emphysema, unspecified emphysema type J43.9 COPD type: emphysema Emphysema type: unspecified Paroxysmal atrial fibrillation I48.0 Aortic stenosis I35.0 History of right above knee amputation Z89.611 Shingles B02.9
== END 2023-08-06 16:20 | disposition home or self-care (01) ==
PROVIDERS: PCP Internal Medicine; Visit Provider Internal Medicine
DX: E11.65 Type 2 diabetes mellitus with hyperglycemia (principal); I48.0 Paroxysmal atrial fibrillation; J43.9 Emphysema, unspecified; Z89.611 Acquired absence of right leg above knee; I25.10 Atherosclerotic heart disease of native coronary artery without angina pectoris; E78.00 Pure hypercholesterolemia, unspecified; I10 Essential (primary) hypertension; I35.0 Nonrheumatic aortic (valve) stenosis; B02.9 Zoster without complications
CPT/HCPCS: 99214

== ENCOUNTER 2023-08-07 15:55 | Outpatient (REF) | payer MEDICARE, OTHER, SELFPAY ==
[2023-08-07 16:38] LABS: Appearance Urine Cloudy; Color Urine Yellow; Glucose Urine UA Negative (Negative); Leukocyte Esterase Urine Large (3+) (Negative); Nitrite Urine Negative (Negative); Specific Gravity - Urine 1.015 (1.005-1.025); UMIC TRIGGER UACC YES; Urine Blood Small (1+) (Negative); Urine Ketones Trace mg/dL (Negative); Urine Protein 300 (3+) mg/dL (Neg-Trace)
[2023-08-07 16:55] LABS: Creatinine Urine 95.71 mg/dL
[2023-08-07 17:23] LABS: Bacteria Urine 1+ (None Seen); Hyaline Casts Urine 0-2 /LPF (0-2); RBC Urine 0-2 /HPF (0-2); Squamous Epithelial Cell Urine 0-2 /HPF (0-2); UACC Culture Trigger YES; WBC Urine 21-50 /HPF (0-5)
== END 2023-08-07 15:56 | disposition home or self-care (01) ==
LOC: HO.LNP 15:55
PROVIDERS: Visit Provider Internal Medicine
DX: E11.65 Type 2 diabetes mellitus with hyperglycemia (principal); R82.90 Unspecified abnormal findings in urine
CPT/HCPCS: 81001; 81003; 82570; 87086; 87088; 87186

== ENCOUNTER 2023-08-13 13:51 | Outpatient (REF) | payer MEDICARE, OTHER, SELFPAY ==
[2023-08-13 15:01] LABS: INTERNATIONAL NORM RATIO 5.6 (0.9-1.1)
== END 2023-08-13 13:52 | disposition home or self-care (01) ==
LOC: HO.HVNA 13:51
PROVIDERS: PCP Internal Medicine; Visit Provider Internal Medicine
DX: Z79.01 Long term (current) use of anticoagulants (principal)
CPT/HCPCS: 36415; 85610

== ENCOUNTER → 2023-08-14 10:57 | Outpatient (BNVA) | payer MEDICARE, OTHER, SELFPAY | PROVIDERS: PCP Internal Medicine; Visit Provider Internal Medicine ==

== ENCOUNTER → 2023-08-17 10:49 | Outpatient (BNVA) | payer MEDICARE, OTHER, SELFPAY | PROVIDERS: PCP Internal Medicine; Visit Provider Internal Medicine ==

== ENCOUNTER → 2023-08-20 13:06 | Outpatient (BNVA) | payer MEDICARE, OTHER, SELFPAY | PROVIDERS: PCP Internal Medicine; Visit Provider Internal Medicine ==

== ENCOUNTER → 2023-08-21 15:04 | Outpatient (BNVA) | payer MEDICARE, OTHER, SELFPAY | PROVIDERS: PCP Internal Medicine; Visit Provider Internal Medicine ==

== ENCOUNTER → 2023-08-24 12:00 | Outpatient (BNVA) | payer MEDICARE, OTHER, SELFPAY | PROVIDERS: PCP Internal Medicine; Visit Provider Internal Medicine ==

== ENCOUNTER → 2023-08-28 13:52 | Outpatient (BNVA) | payer MEDICARE, OTHER, SELFPAY | PROVIDERS: PCP Internal Medicine; Visit Provider Internal Medicine ==

== ENCOUNTER → 2023-09-03 11:56 | Outpatient (BNVA) | payer MEDICARE, OTHER, SELFPAY | PROVIDERS: PCP Internal Medicine; Visit Provider Internal Medicine ==

== ENCOUNTER 2023-09-04 20:28 | Emergency (ER) | payer MEDICARE, OTHER, SELFPAY ==
--- NOTE | 2023-09-04 | ECG_ITS ---
Test Reason : Abdominal pain Blood Pressure : / mmHG Vent. Rate : 064 BPM Atrial Rate : 064 BPM P-R Int : 188 ms QRS Dur : 156 ms QT Int : 432 ms P-R-T Axes : 042 058 031 degrees QTc Int : 445 ms Normal sinus rhythm Right bundle branch block Abnormal ECG When compared with ECG of 13-SEP-2015 12:26, Right bundle branch block is now Present Referred By: Generic ED Physician Electronically Signed By:Armando Batista
[2023-09-04 20:29] VITALS: BP 154/52; BP 161/50; PULSE 65; PULSE 69; RESP 17; TEMP 36.7; O2SAT 93; O2SAT 97; BMI 25.1
[2023-09-04 20:52] LABS: MANUAL DIFF FLAG NO
[2023-09-04 20:53] LABS: Basophils Percent Auto 0.5 % (0-2); Eosinophils Absolute Auto 0.2 X10*3/uL (0.0-0.4); Eosinophils Percent Auto 2.8 % (0-4); Hematocrit 32.2 % (42.0-52.0); Hemoglobin 10.8 g/dl (14.0-18.0); Imm Gran Abs Auto 0.01 X10*3/uL (0.00-0.03); Imm Gran Pct Auto 0.1 % (0.0-0.4); Lymphocytes Absolute Auto 2.6 X10*3/uL (1.2-4.9); Lymphocytes Percent Auto 29.8 % (20-40); Mean Corpuscular HGB Conc 33.5 g/dl (31.0-36.0); Mean Corpuscular Hemoglobin 28.5 pg (27.0-33.0); Mean Platelet Volume 9.7 fL (9.4-12.4); Monocytes Absolute Auto 1.1 X10*3/uL (0.1-1.2); Monocytes Percent Auto 13.2 % (2-11); Neutrophils Absolute Auto 4.6 x10*3/uL (2.0-8.3); Neutrophils Percent Auto 53.6 % (45-73); Platelet Count 294 X10*3/uL (160-400); Red Blood Count 3.79 X10*6/uL (4.60-5.80); Red Cell Distribution Width 14.6 % (11.0-16.0); White Blood Count 8.6 X10*3/uL (4.8-10.8)
[2023-09-04 21:07] LABS: Alanine Aminotransferase 23 U/L (0-40); Albumin Level 3.1 g/dL (3.5-5.0); Alkaline Phosphatase 76 U/L (39-117); Anion Gap 14 (12-20); Aspartate Amino Transferase 29 U/L (5-37); Bilirubin Total 0.3 mg/dL (0.0-1.0); Blood Urea Nitrogen 48 mg/dL (9-16); Calcium 9.5 mg/dL (8.4-10.2); Carbon Dioxide 25 mmol/L (22-29); Chloride 102 mmol/L (96-108); Creatinine Clr Calc Pharmacy 34.6; Estimated Glomerular Filt Rate 38; Glucose Random 164 mg/dL (60-115); Potassium 4.2 mmol/L (3.3-5.1); Sodium 137 mmol/L (135-145); Total Protein 6.7 g/dL (6.5-8.0)
--- NOTE | 2023-09-04 21:21 | ED_ITS ---
HPI - Abdominal Pain General Chief Complaint: Abdominal Pain Stated Complaint: Right, lower quadrant pain Time Seen by Provider: 09/04/23 21:19 Source: patient and family Mode of arrival: ambulatory Limitations: no limitations History of Present Illness ED Provider: jud LOZADA narrative: Patient's history of chronic constipation taking MiraLax has not moved her bowels in last 5 days feels bloated no nausea no vomiting Related Data Home Medications ?Medication ?Instructions ?Recorded ?Confirmed cholecalciferol (vitamin D3) 50 50 mcg PO DAILY 03/19/20 09/03/23 mcg (2,000 unit) capsule lancets 28 gauge #100 ea 04/18/20 09/03/23 ketoconazole 2 % shampoo 1 appl topical DAILY PRN Rash 09/12/20 09/03/23 warfarin 5 mg tablet 2.5 mg PO SUTUTHSA@1800 07/13/23 09/03/23 Previous Rx's ?Medication ?Instructions ?Recorded tamsulosin 0.4 mg capsule 0.4 mg PO BEDTIME 90 days #90 caps 11/04/22 metoprolol tartrate 50 mg tablet 50 mg PO BID 90 days #180 tabs 12/30/22 amlodipine 10 mg tablet 10 mg PO DAILY 90 days #90 tabs 01/03/23 albuterol sulfate 90 mcg/actuation 2 puff inhalation Q4H PRN 04/09/23 aerosol inhaler shortness of breath or wheezing #8.5 grams fluticasone 500 mcg-salmeterol 50 1 inh inhalation BID #60 ea 04/09/23 mcg/dose blistr powdr for inhalation (Wixela Inhub) umeclidinium 62.5 mcg/actuation 1 inh PO BEDTIME #90 grams 07/18/23 blister powder for inhalation (Incruse Ellipta) hydrochlorothiazide 12.5 mg tablet 12.5 mg PO DAILY #5 tabs 07/28/23 atorvastatin 40 mg tablet 40 mg PO DAILY #90 tabs 08/05/23 tramadol 50 mg tablet 50 mg PO TID PRN pain 30 days #90 08/06/23 tabs MANUAL WHEELCHAIR #1 ea 08/25/23 warfarin 5 mg tablet 5 mg PO MOWEFR@1800 #90 tabs 09/03/23 Allergies Allergy/AdvReac Type Severity Reaction Status Date / Time lisinopril [LISINOPRIL] Allergy Unknown HIVES Verified 09/04/23 20:38 Review of Systems Review of Systems Yes all other systems are reviewed and are negative [facility] Past Medical History Medical History Medicare annual wellness visit, initial Aortic stenosis 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 Mother No problems noted. Social History Social History Household Members: Spouse Housing: House Do you presently have visiting nurse or other home services: No Alcohol intake: never Patient Tobacco Use Status: Former Tobacco user Tobacco use type: Cigarette Years Smoked: quit 1988 Smoked in Last 30 Days: No e-Cigarette/Vaping Use: Never Used Second Hand Smoke Exposure: No Use of substances other than those prescribed or required for medical reasons: No Advance Directives: No Advance Directives Information Provided: No Do you have a plan to hurt others: No Plan service: No Current occupational status: retired Cognitive needs: Yes (cane/walker/wheelchair) Hearing needs: Yes Vision needs: Yes Physical Exam ED Vital Signs: Vital Signs - 24 hr 09/04/23 20:29 09/04/23 22:43 09/04/23 22:43 Temperature 98.1 F 98.9 F 98.9 F Pulse Rate 65 74 74 Respiratory Rate 17 19 19 Blood Pressure 161/50 H 152/47 H 152/47 H Pulse Oximetry 97 96 96 Oxygen Delivery Method Room Air Room Air Room Air BMI result Body Mass Index 25.1 Appearance: Alert. Oriented X3. No acute distress. Eyes: PERRLA, No Nystagmus ENT: Pharynx normal. Oral Mucosa moist Neck: Normal inspection. Neck supple. CVS: Normal heart rate and rhythm. Pulses normal. Respiratory: No respiratory distress. Equal air entry bilateral, no wheezing/rales/rhonchi Abdomen: Soft and nontender. Bowel sounds are present, no mass palpable, no CVA tenderness rectum: Semi soft stool in the rectum Skin: Skin warm and dry. Normal skin color. Normal skin turgor. Extremities: No lower extremity edema. No calf tenderness right AKA Neuro: Oriented X 3. No motor deficit. No sensory deficit.No cerebellar signs , cranial nerves II-XII intact Procedures Rectal Disimpaction Indication: fecal impaction Sedation/Analgesia: none Technique: manual disimpaction with gloved finger Patient Tolerated Procedure: well Additional Comments: Patient had good bowel after disimpaction Medical Decision Making Lab Data 09/04/23 20:46 09/04/23 20:46 Labs: Lab Results 09/04/23 Range/Units 20:46 WBC 8.6 (4.8-10.8) X10*3/uL RBC 3.79 L (4.60-5.80) X10*6/uL Hgb 10.8 L (14.0-18.0) g/dl Hct 32.2 L (42.0-52.0) % MCV 85.0 (80.0-98.0) fL MCH 28.5 (27.0-33.0) pg MCHC 33.5 (31.0-36.0) g/dl RDW 14.6 (11.0-16.0) % Plt Count 294 D (160-400) X10*3/uL MPV 9.7 (9.4-12.4) fL Immature Gran % (Auto) 0.1 (0.0-0.4) % Neut % (Auto) 53.6 (45-73) % Lymph % (Auto) 29.8 (20-40) % Cannon % (Auto) 13.2 H (2-11) % Eos % (Auto) 2.8 (0-4) % Baso % (Auto) 0.5 (0-2) % Lymph # (Auto) 2.6 (1.2-4.9) X10*3/uL Cannon # (Auto) 1.1 (0.1-1.2) X10*3/uL Eos # (Auto) 0.2 (0.0-0.4) X10*3/uL Baso # (Auto) 0.0 (0.0-0.2) X10*3/uL Abs Immat Gran (auto) 0.01 (0.00-0.03) X10*3/uL Absolute Neuts (auto) 4.6 (2.0-8.3) x10*3/uL Absolute Nucleated RBC 0.000 (0.0-0.012) X10*3/uL Nucleated RBC % (auto) 0.0 (0.0-0.2) /100WBC Sodium 137 (135-145) mmol/L Potassium 4.2 (3.3-5.1) mmol/L Chloride 102 (96-108) mmol/L Carbon Dioxide 25 (22-29) mmol/L Anion Gap 14 (12-20) BUN 48 H (9-16) mg/dL Creatinine 1.71 H (0.5-1.4) mg/dL Estim Creat Clear Calc 34.6 Estimated GFR 38 Random Glucose 164 H (60-115) mg/dL Calcium 9.5 (8.4-10.2) mg/dL Total Bilirubin 0.3 (0.0-1.0) mg/dL AST 29 (5-37) U/L ALT 23 (0-40) U/L Alkaline Phosphatase 76 (39-117) U/L Total Protein 6.7 (6.5-8.0) g/dL Albumin 3.1 L (3.5-5.0) g/dL Discharge Plan Discharge Clinical Impression: Constipation Patient Disposition: Home, Self-Care Instructions: Constipation (ED) Additional Instructions: Continue stool softeners as prescribed Follow up with PCP Prescriptions: No Action metoprolol tartrate 50 mg tablet 50 mg PO BID 90 Days Qty: 180 3RF amlodipine 10 mg tablet 10 mg PO DAILY 90 Days Qty: 90 2RF Incruse Ellipta 62.5 mcg/actuation blister with device 1 inh PO BEDTIME Qty: 90 3RF hydrochlorothiazide 12.5 mg tablet 12.5 mg PO DAILY Qty: 5 3RF atorvastatin 40 mg tablet 40 mg PO DAILY Qty: 90 3RF (DME) MANUAL WHEELCHAIR See Rx Instructions .Route .MEDSUPPLY Qty: 1 0RF Rx Instructions: As directed warfarin 5 mg tablet 5 mg PO MOWEFR@1800 Qty: 90 3RF Protocol: Dose Management Condition: Thursday (Week One) Dose/Route: 2.5 mg Instruction: 0.5 x 5 mg tablets Condition: Thursday Dose/Route: 2.5 mg Instruction: 0.5 x 5 mg tablets Condition: Thursday Dose/Route: 2.5 mg Instruction: 0.5 x 5 mg tablets Condition: Thursday Dose/Route: 5 mg Instruction: 1 x 5 mg tablet Condition: Dose/Route: 2.5 mg Instruction: 0.5 x 5 mg tablets Condition: Thursday Dose/Route: 2.5 mg Instruction: 0.5 x 5 mg tablets Condition: Thursday Dose/Route: 2.5 mg Instruction: 0.5 x 5 mg tablets Condition: Thursday ( Two) Dose/Route: 2.5 mg Instruction: 0.5 x 5 mg tablets Condition: Thursday Dose/Route: 2.5 mg Instruction: 0.5 x 5 mg tablets Condition: Thursday Dose/Route: 2.5 mg Instruction: 0.5 x 5 mg tablets Condition: Thursday Dose/Route: 5 mg Instruction: 1 x 5 mg tablet Condition: Dose/Route: 2.5 mg Instruction: 0.5 x 5 mg tablets Condition: Thursday Dose/Route: 2.5 mg Instruction: 0.5 x 5 mg tablets Condition: Thursday Dose/Route: 2.5 mg Instruction: 0.5 x 5 mg tablets Protocol Text: Adjustment Start Date: 09/03/23 INR Value: 2.6 INR Date: 09/03/23 Recheck Date: 09/09/23 Additional Instructions: INR is in range continue same dosing balance greens and reds in diet as appetite improves warfarin 5 mg tablet 2.5 mg PO SUTUTHSA@1800 Protocol: Dose Management Condition: Thursday (Week One) Dose/Route: 2.5 mg Instruction: 0.5 x 5 mg tablets Condition: Thursday Dose/Route: 2.5 mg Instruction: 0.5 x 5 mg tablets Condition: Thursday Dose/Route: 2.5 mg Instruction: 0.5 x 5 mg tablets Condition: Thursday Dose/Route: 5 mg Instruction: 1 x 5 mg tablet Condition: Dose/Route: 2.5 mg Instruction: 0.5 x 5 mg tablets Condition: Thursday Dose/Route: 2.5 mg Instruction: 0.5 x 5 mg tablets Condition: Thursday Dose/Route: 2.5 mg Instruction: 0.5 x 5 mg tablets Condition: Thursday (Week Two) Dose/Route: 2.5 mg Instruction: 0.5 x 5 mg tablets Condition: Thursday Dose/Route: 2.5 mg Instruction: 0.5 x 5 mg tablets Condition: Thursday Dose/Route: 2.5 mg Instruction: 0.5 x 5 mg tablets Condition: Thursday Dose/Route: 5 mg Instruction: 1 x 5 mg tablet Condition: Dose/Route: 2.5 mg Instruction: 0.5 x 5 mg tablets Condition: Thursday Dose/Route: 2.5 mg Instruction: 0.5 x 5 mg tablets Condition: Thursday Dose/Route: 2.5 mg Instruction: 0.5 x 5 mg tablets Protocol Text: Adjustment Start Date: 09/03/23 INR Value: 2.6 INR Date: 09/03/23 Recheck Date: 09/09/23 Additional Instructions: INR is in range continue same dosing balance greens and reds in diet as appetite improves cholecalciferol (vitamin D3) 50 mcg (2,000 unit) capsule 50 mcg PO DAILY (DME) lancets 28 gauge misc See Rx Instructions topical DAILY Qty: 100 Rx Instructions: As directed fluticasone propion-salmeterol [Wixela Inhub] 500-50 mcg/dose blister with device 1 inh inhalation BID Qty: 60 7RF albuterol sulfate 90 mcg/actuation HFA aerosol inhaler 2 puff inhalation Q4H PRN (Reason: shortness of breath or wheezing) Qty: 8.5 0RF tramadol 50 mg tablet 50 mg PO TID PRN (Reason: pain) 30 Days Qty: 90 0RF ketoconazole 2 % shampoo 1 appl topical DAILY PRN (Reason: Rash) tamsulosin 0.4 mg capsule 0.4 mg PO BEDTIME 90 Days Qty: 90 3RF Interventions: ED Discharge Assessment Last Done: 09/04/23 22:43 Discharge Date/Time: 09/04/23 22:43 Print Language: Green[place]ic
[2023-09-04 22:43] VITALS: BP 152/47; PULSE 74; RESP 19; TEMP 37.2; O2SAT 96
== END 2023-09-04 22:43 | disposition home or self-care (01) ==
PROVIDERS: Emergency Provider Internal Medicine
DX: K59.00 Constipation, unspecified (principal); I45.10 Unspecified right bundle-branch block; R10.31 Right lower quadrant pain; Z79.899 Other long term (current) drug therapy; Z87.891 Personal history of nicotine dependence
CPT/HCPCS: 36415; 80053; 85025; 93005; 99283; 99285

== ENCOUNTER → 2023-09-04 20:52 | Outpatient (BNV) | payer MEDICARE, OTHER, SELFPAY | PROVIDERS: Emergency Provider Internal Medicine; Visit Provider Internal Medicine Cardiovascular Disease | DX: I45.10 Unspecified right bundle-branch block (principal); R94.31 Abnormal electrocardiogram [ECG] [EKG]; R10.9 Unspecified abdominal pain | CPT/HCPCS: 93010 ==

== ENCOUNTER → 2023-09-09 09:12 | Outpatient (BNVA) | payer MEDICARE, OTHER, SELFPAY | PROVIDERS: Visit Provider Internal Medicine ==

== ENCOUNTER → 2023-09-16 10:30 | Outpatient (BNVA) | payer MEDICARE, OTHER, SELFPAY | PROVIDERS: PCP Internal Medicine; Visit Provider Internal Medicine ==

== ENCOUNTER 2023-09-18 14:40 | Outpatient (REF) | payer MEDICARE, OTHER, SELFPAY ==
[2023-09-18 15:54] LABS: Alanine Aminotransferase 19 U/L (0-40); Albumin Level 3.1 g/dL (3.5-5.0); Alkaline Phosphatase 67 U/L (39-117); Anion Gap 11 (12-20); Aspartate Amino Transferase 22 U/L (5-37); Bilirubin Total 0.4 mg/dL (0.0-1.0); Blood Urea Nitrogen 34 mg/dL (9-16); Carbon Dioxide 25 mmol/L (22-29); Chloride 102 mmol/L (96-108); Estimated Glomerular Filt Rate 38; Glucose Random 125 mg/dL (60-115); Potassium 4.1 mmol/L (3.3-5.1); Sodium 134 mmol/L (135-145); Total Protein 6.4 g/dL (6.5-8.0)
[2023-09-18 17:52] LABS: Appearance Urine Cloudy; Color Urine Yellow; Glucose Urine UA 100 mg/dL (Negative); Leukocyte Esterase Urine Moderate (2+) (Negative); Nitrite Urine Negative (Negative); PH 5.5 (5.0-9.0); Specific Gravity - Urine 1.015 (1.005-1.025); UMIC TRIGGER UACC YES; Urine Blood Trace (Negative); Urine Ketones Negative (Negative); Urine Protein 300 (3+) mg/dL (Neg-Trace)
[2023-09-18 17:55] LABS: Bacteria Urine 1+ (None Seen); Hyaline Casts Urine 0-2 /LPF (0-2); RBC Urine 0-2 /HPF (0-2); Squamous Epithelial Cell Urine 0-2 /HPF (0-2); UACC Culture Trigger YES; WBC Urine >50 /HPF (0-5)
== END 2023-09-18 14:41 | disposition home or self-care (01) ==
LOC: HO.LAB 14:40
PROVIDERS: PCP Internal Medicine; Visit Provider Internal Medicine
DX: E11.65 Type 2 diabetes mellitus with hyperglycemia (principal); R30.0 Dysuria
CPT/HCPCS: 36415; 80053; 81001; 87086; 87088; 87186

== ENCOUNTER → 2023-09-24 10:24 | Outpatient (BNVA) | payer MEDICARE, OTHER, SELFPAY | PROVIDERS: PCP Internal Medicine; Visit Provider Internal Medicine ==

== ENCOUNTER → 2023-10-01 09:56 | Outpatient (BNVA) | payer MEDICARE, OTHER, SELFPAY | PROVIDERS: PCP Internal Medicine; Visit Provider Internal Medicine ==

== ENCOUNTER → 2023-10-08 09:41 | Outpatient (BNVA) | payer MEDICARE, OTHER, SELFPAY | PROVIDERS: PCP Internal Medicine; Visit Provider Internal Medicine ==

== ENCOUNTER → 2023-10-13 09:04 | Outpatient (BNVA) | payer MEDICARE, OTHER, SELFPAY | PROVIDERS: PCP Internal Medicine; Visit Provider Internal Medicine ==

== ENCOUNTER 2023-10-21 10:50 | Outpatient (AMB) | payer MEDICARE, OTHER, SELFPAY ==
[2023-10-21 11:13] LABS: Prothrombin Time Whole Bld POC 24.3 sec (11.1-13.5)
--- NOTE | 2023-10-21 11:25 | MHC.OFFVISCO ---
Intake Intake Visit Reasons: Anticoagulation Allergies lisinopril [LISINOPRIL] Allergy (Unknown, Verified 10/21/23 11:02) HIVES Medication List - Last Reconciled 10/21/23 by Zeenat Ball RN albuterol sulfate 90 mcg/actuation 2 puffs inhalation Q4H PRN amlodipine 10 mg PO DAILY 90 days atorvastatin 40 mg PO DAILY cholecalciferol (vitamin D3) 50 mcg PO DAILY fluticasone propion-salmeterol 500-50 mcg/dose (Wixela Inhub) 1 inh inhalation BID hydrochlorothiazide 12.5 mg PO DAILY ketoconazole 2% 1 appl topical DAILY PRN lancets As directed [MANUAL WHEELCHAIR As directed] metoprolol tartrate 50 mg PO BID 90 days tamsulosin 0.4 mg PO BEDTIME 90 days tramadol 50 mg PO TID PRN 30 days umeclidinium 62.5 mcg/actuation (Incruse Ellipta) 1 inh PO BEDTIME warfarin 2.5 mg See Protocol PO 6XW warfarin 5 mg See Protocol PO QWEEK Nursing Note PT. WAS [facility]D FROM [facility] 1 WEEK AGO. HERE IN W/C TODAY WITH ASSIST. PT.DENIES ANY CP,SOB,MED CHANGES OR SX OF BLEEDING. CONTINUE PRESENT DOSE AND FOLLOW-UP IN 3 WEEKS. GOOD UNDERSTANDING OF DOSING INSTR. Anti-Coag Initial Assessment Social Hx Patient Tobacco Use Status: Former Tobacco user Tobacco use type: Cigarette alcohol intake: never Coding Level of Care Code Est Patient Level 1 Diagnoses Current use of anticoagulant therapy Z79.01 Assessment & Plan Assessment & Plan (1) Current use of anticoagulant therapy: Code(s): Z79.01 - group home (current) use of anticoagulants Category: Medical
== END 2023-10-21 11:28 | disposition home or self-care (01) ==
LOC: HO.ACS 10:50
PROVIDERS: PCP Internal Medicine; Visit Provider Internal Medicine
DX: Z79.01 Long term (current) use of anticoagulants (principal)

== ENCOUNTER → 2023-10-21 10:50 | Outpatient (BNVA) | payer MEDICARE, OTHER, SELFPAY | PROVIDERS: PCP Internal Medicine; Visit Provider Internal Medicine | DX: I48.0 Paroxysmal atrial fibrillation (principal); Z79.01 Long term (current) use of anticoagulants; Z51.81 Encounter for therapeutic drug level monitoring | CPT/HCPCS: 85610; 99211 ==

== ENCOUNTER 2023-10-23 10:15 | Outpatient (REF) | payer MEDICARE, OTHER, SELFPAY ==
[2023-10-23 11:07] LABS: MANUAL DIFF FLAG NO
[2023-10-23 11:37] LABS: Basophils Absolute Auto 0.1 X10*3/uL (0.0-0.2); Basophils Percent Auto 0.6 % (0-2); Eosinophils Absolute Auto 0.4 X10*3/uL (0.0-0.4); Eosinophils Percent Auto 4.4 % (0-4); Hematocrit 31.4 % (42.0-52.0); Hemoglobin 10.5 g/dl (14.0-18.0); Imm Gran Abs Auto 0.03 X10*3/uL (0.00-0.03); Imm Gran Pct Auto 0.4 % (0.0-0.4); Lymphocytes Absolute Auto 2.7 X10*3/uL (1.2-4.9); Lymphocytes Percent Auto 32.7 % (20-40); Mean Corpuscular HGB Conc 33.4 g/dl (31.0-36.0); Mean Corpuscular Hemoglobin 28.9 pg (27.0-33.0); Mean Corpuscular Volume 86.5 fL (80.0-98.0); Monocytes Percent Auto 11.7 % (2-11); Neutrophils Absolute Auto 4.1 x10*3/uL (2.0-8.3); Neutrophils Percent Auto 50.2 % (45-73); Platelet Count 298 X10*3/uL (160-400); Red Blood Count 3.63 X10*6/uL (4.60-5.80); Red Cell Distribution Width 14.8 % (11.0-16.0); White Blood Count 8.1 X10*3/uL (4.8-10.8)
[2023-10-23 12:05] LABS: Creatinine Urine 39.72 mg/dL
[2023-10-23 12:09] LABS: Alanine Aminotransferase 17 U/L (0-40); Albumin Level 3.2 g/dL (3.5-5.0); Alkaline Phosphatase 82 U/L (39-117); Anion Gap 11 (12-20); Aspartate Amino Transferase 19 U/L (5-37); Blood Urea Nitrogen 38 mg/dL (9-16); Carbon Dioxide 25 mmol/L (22-29); Chloride 104 mmol/L (96-108); Cholesterol 96 mg/dL (<200); Estimated Glomerular Filt Rate 35; Glucose Random 132 mg/dL (60-115); HDL Cholesterol 39 mg/dL (>40); LDL Cholesterol Calculated 42 mg/dL (<100); Sodium 136 mmol/L (135-145); Total Protein 6.3 g/dL (6.5-8.0); Triglycerides 75 mg/dL (<150)
[2023-10-23 12:14] LABS: Bilirubin Total 0.4 mg/dL (0.0-1.0)
[2023-10-23 12:25] LABS: Free T4 (Free Thyroxine) 0.98 ng/dL (0.71-1.85); TSH reflex Free T4 2.24 uIU/mL (0.32-4.0)
[2023-10-23 12:26] LABS: Microalbum/Creatinine Ratio Ur 2925.4 ug/mg cr (<30)
[2023-10-23 12:30] LABS: Folate 6.1 ng/mL (> or = 4.0); Prostate Specific Antigen Scr 0.57 ng/mL (<0.05-4.0); Vitamin B12 426 pg/mL (200-900)
[2023-10-28 14:04] LABS: Vitamin D 25-OH, D2 <4 ng/mL; Vitamin D 25-OH, D3 27 ng/mL; Vitamin D 25-OH, Total 27 ng/mL (30-100)
== END 2023-10-23 10:16 | disposition home or self-care (01) ==
LOC: HO.LAB 10:15
PROVIDERS: PCP Internal Medicine
DX: Z00.00 Encounter for general adult medical examination without abnormal findings (principal); Z12.5 Encounter for screening for malignant neoplasm of prostate
CPT/HCPCS: 36415; 80053; 80061; 82043; 82306; 82570; 82607; 82746; 84153; 84439; 84443; 85025

== ENCOUNTER 2023-10-28 10:24 | Outpatient (AMB) | payer MEDICARE, OTHER, SELFPAY ==
[2023-10-28 10:33] VITALS: BP 138/52; PULSE 65; O2SAT 97; BMI 24.8
--- NOTE | 2023-10-28 10:33 | A.OFFVIS_ITS ---
Intake Vital Signs 3 10/28/23 10:33 Height 6 ft Weight 183 lb BMI 24.8 BP 138/52 L Blood Pressure Location Lt brachial Position Sitting Pulse 65 Pulse Source Pulse Oximeter Pulse Oximetry (%) 97 Oxygen Delivery Method Room Air Intake Visit Reasons: sawv Allergies lisinopril [LISINOPRIL] Allergy (Unknown, Verified 10/28/23 10:34) HIVES Medication List - Last Reconciled 10/28/23 by Flakita Stewart, albuterol sulfate 90 mcg/actuation 2 puffs inhalation Q4H PRN amlodipine 10 mg PO DAILY 90 days atorvastatin 40 mg PO DAILY cholecalciferol (vitamin D3) 50 mcg PO DAILY docusate sodium (Colace) 100 mg PO BEDTIME fluticasone propion-salmeterol 500-50 mcg/dose (Wixela Inhub) 1 inh inhalation BID hydrochlorothiazide 12.5 mg PO DAILY lancets As directed [MANUAL WHEELCHAIR As directed] metoprolol tartrate 25 mg PO BID tamsulosin 0.4 mg PO BEDTIME 90 days tramadol 50 mg PO TID PRN 30 days umeclidinium 62.5 mcg/actuation (Incruse Ellipta) 1 inh PO BEDTIME warfarin 2.5 mg See Protocol PO 6XW warfarin 5 mg See Protocol PO QWEEK HPI sawv 2 HPI0 Details 87-year-old male with diabetes mellitus coronary artery disease hypertension hypercholesterolemia COPD atrial fibrillation aortic stenosis with a history of right [id number] amputation coming in for annual well visit last seen in 07/2023. Patient also had shingles. fall 1 week ago in the bathroom, Eye doctor Dr. Miguel. 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 Mother No problems noted. Social History Household Members: Spouse Housing: House Do you presently have visiting nurse or other home services: No Alcohol intake: never Patient Tobacco Use Status: Former Tobacco user Tobacco use type: Cigarette Years Smoked: quit 1987 e-Cigarette/Vaping Use: Never Used Second Hand Smoke Exposure: No service: No Current occupational status: retired Cognitive needs: Yes (cane/walker/wheelchair) Hearing needs: Yes Vision needs: Yes Questionnaire Medicare Wellness Checkup What is your age?: 80 or older What gender do you identify with?: male During the past 4 weeks, how much have you been bothered by emotional problems such as feeling anxious, depressed, irritable, sad or downhearted, and blue?: n ot at all During the past 4 weeks, has your physical & emotional health limited your social activities with family, friends, neighbors, or groups?: not at all During the past 4 weeks, how much bodily pain have you generally had?: mild pain During the past 4 weeks, was someone available to help you if you needed & wanted help?: yes, some During the past 4 weeks, what was the hardest physical activity you could do for at least 2 minutes?: moderate Can you get to places out of walking distance without help? (For eg., can you travel alone on buses, taxis or drive your car?): Yes Can you go shopping for groceries or clothes without someone's help?: Yes Can you prepare your own meals?: No Can you do your housework without help?: No Because of any health problems, do you need the help of another person with your personal care needs such as eating, bathing, dressing or getting around the house?: No Can you handle your own money without help?: Yes During the past 4 weeks, how would you rate your health in general?: good During the past 4 weeks how have things been going for you?: pretty well Are you having difficulties driving your car?: no Do you always fasten your seat belt when you are in a car?: yes, usually During past 4 weeks, have you been bothered by the following: never: Falling or dizzy when standing up, Sexual problems?, Trouble eating well? and Teeth or denture problems?, seldom: Tiredness or fatigue? and sometimes: Problems using the telephone? Have you fallen 2 or more times in the past year?: Yes Are you afraid of falling?: No Are you a smoker?: no During the past 4 weeks, how many drinks of wine, beer, or other alcoholic beverages did you have?: no alcohol at all Do you exercise for about 20 minutes 3 or more times a week?: yes, some of the time Have you been given information to help with the following?: yes: Hazards in your house that might hurt you? and yes: Keeping track of your medications? How often do you have trouble taking medicines the way you have been told to take them?: I always take medicine as prescribed How confident are you that you can control & manage most of your health problems?: somewhat confident What is your race?: White PHQ-9 Over the last 2 weeks, how often have you been bothered by any of the following problems? 1. Little interest or pleasure in doing things: not at all 2. Feeling down, depressed, or hopeless: not at all 3. Trouble falling or staying asleep, or sleeping too much: not at all 4. Feeling tired or having little energy: not at all 5. Poor appetite or overeating: not at all 6. Feeling bad about yourself - or that you are a failure or have let yourself or your family down: not at all 7. Trouble concentrating on things, such as reading the newspaper or watching television: not at all 8. Moving or speaking so slowly that other people could have noticed. Or the opposite - being so fidgety or restless that you have been moving around a lot more than usual: not at all 9. Thoughts that you would be better off or of hurting yourself in some way: not at all Total score: 0 Depression Screening Interpretation: Negative Depression Screening Done: Yes 13650 - PHQ-9 Billing: Yes Source: Developed by Drs. Omega Negron, Shannan Couch, Armond Ceballos and colleagues, with an educational klaudia from [employer] Thrive Questionnaire Date Thrive assessed: 07/13/23 ANDREY-7 AMB Questionnaire ANDREY-7 Date ANDREY - 7 assessed: 07/22/23 Source: Developed by Drs. Omega Negron, Shannan Couch, Armond Ceballos and colleagues, with an educational klaudia from [employer] Review of Systems Const Denies poor appetite and Denies weakness Eyes Denies no additional complaints ENT Reports Normal hearing present, Denies dizziness, Denies nasal congestion, Denies tinnitus and Denies sore throat Card Denies chest pain, Denies syncope, Denies rapid heart rate and Denies dyspnea Resp Denies cough and Denies dyspnea GI Denies change in stool character, Reports constipation, Denies diarrhea, Denies nausea and Denies vomiting Denies dysuria and Denies urinary frequency Neuro Reports Normal hearing present, Denies confusion, Denies dizziness, Denies syncope and Denies weakness Psych Denies confusion Physical Exam Vital Signs: Last Vital Signs Pulse 65 10/28/23 10:33 BP 138/52 L 10/28/23 10:33 Pulse Ox 97 10/28/23 10:33 Oxygen Delivery Method Room Air 10/28/23 10:33 BMI result Body Mass Index 24.8 Const General: No confusion Orientation/consciousness: No confusion HEENT Head: Yes normocephalic Ears: external ears normal and TM's normal bilaterally Face and sinus: Yes normal facial exam Face images: 2 1. L lower lid ectropion Mouth: moist mucous membranes Throat: Yes tonsils normal Eyes Conjunctivae: conjunctivae normal Pupils: Equal, round and reactive pupils present and Pupil accommodation reflex normal Direct Ophthalmoscopy: normal light reflex Neck Neck: No lymphadenopathy Thyroid: Thyroid normal Chest Chest palpation & inspection: normal inspection of the chest Resp Effort & Inspection: normal respiratory effort and no audible wheezes Auscultation: clear to auscultation bilaterally, no crackles, no wheezes and lung sounds not diminished Cardio Rate: regular rate Rhythm: regular rhythm Peripheral pulses: radial pulses present and dorsalis pedis present GI Other: guiaic neg prostate N Palpation (GI): no masses Auscultation: normal bowel sounds and normoactive bowel sounds Rectal Exam - Male: Yes deferred Male General Exam: Yes normal external exam Skin General skin exam: no rashes or lesions noted Rashes: no rashes Neuro General: No confusion Cranial nerves: Yes Equal, round and reactive pupils present and Yes Normal hearing present Cognition (Neuro): normal cognition Gait exam (Neuro): Normal gait present Motor exam (neuro): 5/5 motor strength present throughout Deep tendon reflexes (DTR's): Right brachioradialis reflex intensity grade: 2+, Left brachioradialis reflex intensity grade: 2+, Right patellar reflex intensity grade: 2+ and Left patellar reflex intensity grade: 2+ Extrem General: No edema Results AMB Hemoglobin A1c 2 AMB Hemoglobin A1c 6.6 % Last Edit by Stella Perez CMA on 10/28/23 10 :58 Results Reviewed Results Reviewed: Laboratory Last Values Hgb A1c (Clinic) 6.6 % (4.0-6.0) H 10/28/23 10:33 Assessment & Plan Assessment & Plan (1) Medicare annual wellness visit, subsequent: Code(s): Z00.00 - Encounter for general adult medical examination without abnormal findings Plan: Patient is advised to eat healthy, keep well hydrated, keep active and have adequate sleep. (2) History of right above knee amputation: Comment: 2003 Dr.Matthew Morris Code(s): Z89.611 - Acquired absence of right leg above knee Plan: Patient has the prosthesis. (3) Aortic stenosis: Comment: April 2021 moderate 1.2 cm squared March 2022he left ventricular systolic function is low normal. The calculated ejection fraction is 54% by biplane method. - The basal inferior and basal inferolateral segments are akinetic. - There is moderate to severe aortic valve stenosis. 1.0 cm2 October 2022 1.11 cm squared Code(s): I35.0 - Nonrheumatic aortic (valve) stenosis Qualifiers: Cardiac valve disease etiology: nonrheumatic Qualified Code(s): I35.0 - Nonrheumatic aortic (valve) stenosis Plan: Reminded patient of October echocardiogram (4) Type 2 diabetes mellitus with hyperglycemia: Comment: Dr. Miguel Code(s): E11.65 - Type 2 diabetes mellitus with hyperglycemia Qualifiers: Diabetes mellitus long-term insulin use: without intermediate frame tender use Q ualified Code(s): E11.65 - Type 2 diabetes mellitus with hyperglycemia Plan: Decrease the amount of carbohydrate intake, pasta, bread, rice and potatoes are all sugar and that is aside from all the sweet stuff, remember that fruits are good but they are Sweet also. Hemoglobin A1c goal of less than 7.0. On diet control (5) Coronary artery disease: Comment: An STEMI December [address]CA stent [address] Chaudhari Code(s): I25.10 - Atherosclerotic heart disease of [place] coronary artery without angina pectoris Qualifiers: Associated angina: without angina Coronary Disease-Associated Artery/Lesion type: [place] artery [place] vs. transplanted heart: [place] heart Qualified Code(s): I25.10 - Atherosclerotic heart disease of [place] coronary artery without angina pectoris Plan: Control the cholesterol, weight, blood pressure, diabetes on anticoagulation (6) Hypertension: Code(s): I10 - Essential (primary) hypertension Qualifiers: Hypertension type: essential hypertension Qualified Code(s): I10 - Essential (primary) hypertension Plan: Continue with blood pressure medication. Decrease salt intake and exercise takes amlodipine 10 mg once a day hydrochlorothiazide 12.5 mg once a day metoprolol 50 mg twice a day (7) Hypercholesterolemia: Code(s): E78.00 - Pure hypercholesterolemia, unspecified Plan: Avoid fried foods, chicken skin, eggs, butter margarine, pastries and meat. Be it pork or beef they have a lot of cholesterol LDL goal of less than 70 and triglyceride of less than 150 taking atorvastatin 40 mg once a day (8) COPD (chronic obstructive pulmonary disease): Code(s): J44.9 - Chronic obstructive pulmonary disease, unspecified Qualifiers: COPD type: emphysema Emphysema type: unspecified Qualified Code(s): J 43.9 - Emphysema, unspecified Plan: Continuing with albuterol inhaler and Wixela reminded about rinsing mouth after using. (9) Paroxysmal atrial fibrillation: Comment: December 2012 Code(s): I48.0 - Paroxysmal atrial fibrillation Plan: Continuing with anticoagulation and metoprolol (10) Anemia: Code(s): D64.9 - Anemia, unspecified Qualifiers: Anemia type: other cause Other causes of anemia: other cause, not classified Qualified Code(s): D64.89 - Other specified anemias Plan: Chronic and stable (11) Chronic kidney disease: Code(s): N18.9 - Chronic kidney disease, unspecified Qualifiers: Chronic kidney disease stage: stage 3 (moderate) Chronic kidney disease stage 3 subtype: unspecified whether 3a or 3b Qualified Code(s): N18.30 - Chronic kidney disease, stage 3 unspecified Plan: Hypertension and diabetes. Avoid NSAIDs keep well hydrated keep blood pressure under control and diabetes under control. (12) Hearing difficulty: Code(s): H91.90 - Unspecified hearing loss, unspecified ear Qualifiers: Laterality: bilateral Qualified Code(s): H91.93 - Unspecified hearing loss, bilateral Plan: Hearing test requested Plan Patient is advised to eat healthy, keep well hydrated, keep active and have adequate sleep. Orders: Orders 2 AMB Hemoglobin A1c Today Z13.9 - Encounter for screening, unspecified Referrals 2 Speech and Hearing Referral H91.90 - Unspecified hearing loss, unspecified ear Nephrology Referral N18.9 - Chronic kidney disease, unspecified Medications: New 2 lancets (FreeStyle Lancets) As directed check BS QD 100 ea 3RF E11.65 - Type 2 diabetes mellitus with hyperglycemia blood-glucose meter (FreeStyle Lite Meter kit) As directed 1 ea 0RF E11.65 - Type 2 diabetes mellitus with hyperglycemia blood sugar diagnostic (FreeStyle Lite Strips) As directed check the BS QD 100 ea 3RF E11.65 - Type 2 diabetes mellitus with hyperglycemia Discontinued 2 metoprolol tartrate Discontinued Reason: Doctor's Order 25 mg PO BID I10 - Essential (primary) hypertension Quality Reporting (2019) Depression/Bipolar (159/160/161/177) PHQ-9: Total score: 0 Coding Level of Care Code Medicare Subsequent (G0439) Diagnoses Medicare annual wellness visit, subsequent Z00.00 History of right above knee amputation Z89.611 Nonrheumatic aortic valve stenosis I35.0 Cardiac valve disease etiology: nonrheumatic Type 2 diabetes mellitus with hyperglycemia, without long-term current use of insulin E11.65 Diabetes mellitus intermediate frame tender insulin use: without long-term use Coronary artery disease involving [place] coronary artery of [place] heart without angina pectoris I25.10 Associated angina: without angina Coronary Disease-Associated Artery/Lesion type: [place] artery [place] vs. transplanted heart: [place] heart Essential hypertension I10 Hypertension type: essential hypertension Hypercholesterolemia E78.00 Pulmonary emphysema, unspecified emphysema type J43.9 COPD type: emphysema Emphysema type: unspecified Paroxysmal atrial fibrillation I48.0 Anemia due to other cause, not classified D64.89 Anemia type: other cause Other causes of anemia: other cause, not classified Stage 3 chronic kidney disease, unspecified whether stage 3a or 3b CKD N18.30 Chronic kidney disease stage: stage 3 (moderate) Chronic kidney disease stage 3 subtype: unspecified whether 3a or 3b Hearing difficulty of both ears H91.93 Laterality: bilateral
== END 2023-10-28 11:32 | disposition home or self-care (01) ==
PROVIDERS: PCP Internal Medicine; Visit Provider Internal Medicine
DX: Z00.00 Encounter for general adult medical examination without abnormal findings (principal); Z89.611 Acquired absence of right leg above knee; E11.65 Type 2 diabetes mellitus with hyperglycemia; J43.9 Emphysema, unspecified; I48.0 Paroxysmal atrial fibrillation; N18.30 Chronic kidney disease, stage 3 unspecified; I35.0 Nonrheumatic aortic (valve) stenosis; I25.10 Atherosclerotic heart disease of native coronary artery without angina pectoris; I10 Essential (primary) hypertension; E78.00 Pure hypercholesterolemia, unspecified; D64.89 Other specified anemias; H91.93 Unspecified hearing loss, bilateral
CPT/HCPCS: 83036; G0439

== ENCOUNTER → 2023-11-03 10:47 | Outpatient (REF) | payer MEDICARE, OTHER, SELFPAY ==
--- NOTE | 2023-11-03 10:52 | CA_ITS ---
Transthoracic Echocardiogram Patient (Last, First, Middle): Florentino Bean R Gender: Male Date of : 1935 Age: 87 Procedure Date: 11/03/2023 Procedure Type: Transthoracic Echocardiogram Location: OP Height: 182.88 cm Weight: 83.01 kg BSA: 2.05 m2 Heart Rate: bpm BP: 138 / 58 mmHg [employer]: IRMA Referring MD: Forrest Chaudhari MD Symptoms: I35.0 - Nonrheumatic aortic (valve) stenosis Study Quality: Fair ECG Rhythm: Sinus Conclusions: - The left ventricular systolic function is low normal. The visually estimated ejection fraction is between 50-55%. - The basal inferior segment is akinetic. - The left atrium is moderately dilated. - Overall, possibly severe, paradoxical, low-flow, low gradient aortic stenosis, but stroke volume index is above the threshold. Findings Left Ventricle Mildly increased left ventricular cavity size. There is normal left ventricular wall thickness. The left ventricular systolic function is low normal. The visually estimated ejection fraction is between 50-55%. Diastolic function is normal for age. Wall Motion Rest Echo Findings The basal inferolateral segment is hypokinetic. The basal inferior segment is akinetic. Right Ventricle Normal right ventricular cavity size and systolic function. Atria The left atrium is moderately dilated. The right atrium is normal in size. Aortic Valve The peak aortic velocity is 3.39 m/s with a calculated peak gradient of 46 mmHg. The mean gradient is 27 mmHg. The aortic valve area is 0.78 cm2. There is no aortic valve regurgitation. Dimensionless index 0.24. Stroke volume index 39 mL/m2. Overall, possibly severe, paradoxical, low-flow, low gradient aortic stenosis, but stroke volume index is above the threshold. Mitral Valve There is mild anterior and posterior mitral leaflet thickening. There is mild mitral annular calcification. There is trace mitral valve regurgitation. There is no mitral valve stenosis. Pulmonic Valve The pulmonic valve is likely normal. Tricuspid Valve There is no tricuspid valve regurgitation. Tricuspid regurgitation envelope is inadequate for calculation of right ventricular systolic pressure. Great Vessels The aorta was not well visualized. The aortic annulus is normal in size. Venous The inferior vena cava is normal in size and collapses greater than 50% with inspiration. Pericardium/Pleural There is a trivial pericardial effusion. Prior Study Comparison Changes noted compared to prior study dated: 10/27/2022. Progression of aortic valve stenosis. Wall motion findings previously noted. Measurements 2D Linear Measurements IVSd: 0.90 0.6-0.9/0.6-1.0 cm LVIDd: 5.81 3.9-5.3/4.2-5.9 cm LVIDd Index: 2.83 2.4-3.2/2.2-3.1 cm/m2 LVIDs: 4.00 2.0-3.6 cm LVPWd: 1.01 0.7-1.1 cm LA Diam: 3.70 2.7-3.8/3.0-4.0 cm LAIDs Index: 1.80 1.5-2.3 cm/m2 LV Mass: 274.91 67-162/88-224 g LV Mass Index: 134.10 43-95/49-115 g/m2 LVOT Diam: 2.10 3.0+(-)1.3 cm 2D Systolic Function EF 4C: 58.00 >55% EF 2C: 55.70 >55% Mitral Valve MV Pk E: 0.67 MV PK A: 0.83 MV Decel Time: 287.00 E/A: 0.80 E'Lateral: 7.94 E'Medial: 6.53 E/E' Med: 10.30 E/E' Lat: 8.50 PHT: 84.00 MVA PHT: 2.62 Decel [place]: 2.35 Aortic Valve AoV Pk Sudhir: 3.39 AoV Mn Sudhir: 2.49 AoV VTI: 1.03 AoV Pk Grad: 46.00 Aov Mn Grad: 27.00 GILMAR Cont.VTI: 0.78 LVOT LVOT Pk Sudhir: 0.80 LVOT Mn Sudhir: 0.55 LVOT VTI: 0.23 LVOT Pk Grad: 3.00 LVOT Mn Grad: 1.00 LVOT Diam: 2.10 LVOT Area: 3.46 Diastolic Function MV Pk E: 0.67 MV Pk A: 0.83 E/A: 0.80 E'Medial: 6.53 E/E' Med: 10.30 E' Laterial: 7.94 E/E' Lat: 8.50 Right Ventricle TAPSE (mm): 27.00 TVS' Sudhir: 11.40 Tricuspid Valve RA Press: 3.00 Great Vessels Aorta Ao Asc: 3.10 2.1-3.4 cm Updated in Other Vendor System with Status of Final Daren Kim MD electronically signed on 11/04/2023 12:43:59 PM with status of Final
== END ==
LOC: HO.CARD 10:47
PROVIDERS: PCP Internal Medicine; Visit Provider Internal Medicine Cardiovascular Disease
DX: I35.0 Nonrheumatic aortic (valve) stenosis (principal)
CPT/HCPCS: 93306

== ENCOUNTER → 2023-11-03 10:52 | Outpatient (BNV) | payer MEDICARE, OTHER, SELFPAY | PROVIDERS: PCP Internal Medicine; Visit Provider Internal Medicine | DX: I35.0 Nonrheumatic aortic (valve) stenosis (principal) | CPT/HCPCS: 93306 ==

== ENCOUNTER 2023-11-05 09:56 | Outpatient (AMB) | payer MEDICARE, OTHER, SELFPAY ==
--- NOTE | 2023-11-05 09:58 | MHC.OFFVIS ---
Vital Signs 11/05/23 09:59 Height 6 ft Weight 182 lb 15.739 oz BMI 24.8 BP 140/62 H Blood Pressure Location Lt brachial Position Sitting Pulse 68 Pulse Source Pulse Oximeter Intake Visit Reasons: 6 mth f/up echo Allergies lisinopril [LISINOPRIL] Allergy (Unknown, Verified 10/28/23 10:34) HIVES Medication List - Last Reconciled 11/05/23 by Forrest Chaudhari MD albuterol sulfate 90 mcg/actuation 2 puffs inhalation Q4H PRN amlodipine 10 mg PO DAILY 90 days atorvastatin 40 mg PO DAILY blood sugar diagnostic (FreeStyle Lite Strips) ONCE A DAY blood-glucose meter (FreeStyle Lite Meter kit) ONCE A DAY cholecalciferol (vitamin D3) 50 mcg PO DAILY docusate sodium (Colace) 100 mg PO BEDTIME fluticasone propion-salmeterol 500-50 mcg/dose (Wixela Inhub) 1 inh inhalation BID hydrochlorothiazide 12.5 mg PO DAILY lancets As directed lancets (FreeStyle Lancets) ONCE A DAY [MANUAL WHEELCHAIR As directed] metoprolol tartrate 25 mg PO BID tamsulosin 0.4 mg PO BEDTIME 90 days tramadol 50 mg PO TID PRN 30 days umeclidinium 62.5 mcg/actuation (Incruse Ellipta) 1 inh PO BEDTIME warfarin 2.5 mg See Protocol PO 6XW warfarin 5 mg See Protocol PO QWEEK HPI Comments Details: Florentino comes for follow-up after echocardiogram. This shows paradoxical low-flow possibly severe aortic stenosis although stroke volume is within low normal range. He denies any exertional symptoms of chest pain or shortness of breath or lightheadedness. Unfortunately however over the last 6 months that has been gradual decline in his health related to COVID infection in June and then had zoster in July and then subsequently in August he had some issues as well. This has led to overall general debility and weakness. He denies any orthopnea, PND, leg edema. Takes all his medications. Creatinine remains elevated. Denies any prolonged palpitation irregular heartbeat. 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 Mother No problems noted. Social History Household Members: Spouse Housing: House Do you presently have visiting nurse or other home services: No Alcohol intake: never Patient Tobacco Use Status: Former Tobacco user Tobacco use type: Cigarette Years Smoked: 1987 e-Cigarette/Vaping Use: Never Used Second Hand Smoke Exposure: No service: No Current occupational status: retired Cognitive needs: Yes (cane/walker/wheelchair) Hearing needs: Yes Vision needs: Yes Review of Systems Const Denies weakness ENT Denies dizziness Card Denies chest pain, Denies chest pain with activity, Denies syncope, Denies rapid heart rate, Denies pedal edema, Denies edema, Denies leg edema, Denies lightheadedness, Denies palpitations, Denies dyspnea, Denies dyspnea on exertion and Denies orthopnea Resp Denies cough, Denies dyspnea and Denies dyspnea on exertion GI Denies hematochezia and Denies change in stool character Musc Denies abnormal gait, Denies muscle cramps, Denies muscle weakness, Denies numbness, Denies radiating pain into limb and Denies tingling Neuro Denies abnormal gait, Denies dizziness, Denies syncope, Denies numbness, Denies tingling and Denies weakness Endo Denies palpitations Physical Exam Vital Signs: Last Vital Signs Pulse 68 11/05/23 09:59 BP 140/62 H 11/05/23 09:59 BMI result Body Mass Index 24.8 Const General: cooperative, comfortable, no acute distress, alert and awake Nutritional Appearance: underweight and other (Frail elderly man) Orientation/consciousness: patient oriented x3 Limitations: ambulation with walker Neck Neck: Yes trachea midline, Yes supple and Yes no JVD Resp Effort & Inspection: normal respiratory effort Auscultation: clear to auscultation bilaterally and diminished lung sounds Cardio Jugular venous distension: no JVD Palpation: normal PMI Rate: regular rate Rhythm: regular rhythm Heart sounds: S1 normal heart sound present, no click, no gallops, Murmur heart sound present systolic late, decrescendo and crescendo and Other heart sounds present (S4 present) GI Auscultation: normal bowel sounds Skin General skin exam: no rashes or lesions noted Neuro General: patient oriented x3 and no focal motor deficits Extrem General: Yes no clubbing, cyanosis or edema and Yes other (Right above knee amputation) Psych Appearance: grossly normal Assessment & Plan Assessment & Plan (1) Aortic stenosis: Comment: April 2021 moderate 1.2 cm squared March 2022he left ventricular systolic function is low normal. The calculated ejection fraction is 54% by biplane method. - The basal inferior and basal inferolateral segments are akinetic. - There is moderate to severe aortic valve stenosis. 1.0 cm2 October 2022 1.11 cm squared Code(s): I35.0 - Nonrheumatic aortic (valve) stenosis Category: Medical Qualifiers: Cardiac valve disease etiology: nonrheumatic Qualified Code(s): I35.0 - Nonrheumatic aortic (valve) stenosis Plan: Aortic stenosis, which is probably severe with paradoxical low-flow but clinically without any symptoms. Has multiple comorbidities including significant worsening of his general health in the last few months related to hospitalization as well systemic viral infections, chronic kidney disease, COPD and overall frailty and peripheral vascular disease. At this point time advised that not sure overall clinical status will improve with transcatheter aortic valve replacement. Advised to call me with any worsening symptoms. Will follow-up clinical in 6 months time. Overall prognosis is guarded. (2) Coronary artery disease: Comment: An STEMI December 2012 [address]MS [address]CA stent [address] Chaudhari Code(s): I25.10 - Atherosclerotic heart disease of [place] coronary artery without angina pectoris Category: Medical Qualifiers: Coronary Disease-Associated Artery/Lesion type: [place] artery [place] vs. transplanted heart: [place] heart Associated angina: without angina Qualified Code(s): I25.10 - Atherosclerotic heart disease of [place] coronary artery without angina pectoris Plan: Stable CAD without any symptoms of angina. Continue current aggressive medical therapy. Continue high-intensity statin therapy. Blood pressure is minimally elevated. Advised to monitor blood pressure at home, no changes in therapy has been made at this point time. Target goal LDL less than 60 mg/dL. He has diffuse vascular disease and CAD and currently on warfarin therapy and therefore would avoid aspirin therapy to reduce bleeding risk. (3) Paroxysmal atrial fibrillation: Comment: December 2012 Code(s): I48.0 - Paroxysmal atrial fibrillation Category: Medical Plan: Paroxysmal atrial fibrillation without any overt recurrences at this point time. Continue metoprolol therapy. Avoidance of stimulants was discussed advised to call me with any new symptoms. Advise to continue warfarin therapy being followed by [facility]. Maintain target INR between 2 and 3. Will follow up in the clinic in 6 months time, sooner p.r.n.. Thank you for allowing me to partake in his care Coding Level of Care Code Est Pt Level 4 (40756) Diagnoses Nonrheumatic aortic valve stenosis I35.0 Cardiac valve disease etiology: nonrheumatic Coronary artery disease involving [place] coronary artery of [place] heart without angina pectoris I25.10 Coronary Disease-Associated Artery/Lesion type: [place] artery [place] vs. transplanted heart: [place] heart Associated angina: without angina Paroxysmal atrial fibrillation I48.0
[2023-11-05 09:59] VITALS: BP 140/62; PULSE 68; BMI 24.8
== END 2023-11-05 10:21 | disposition home or self-care (01) ==
PROVIDERS: PCP Internal Medicine; Visit Provider Internal Medicine Cardiovascular Disease
DX: I35.0 Nonrheumatic aortic (valve) stenosis (principal); I25.10 Atherosclerotic heart disease of native coronary artery without angina pectoris; I48.0 Paroxysmal atrial fibrillation
CPT/HCPCS: 99214

== ENCOUNTER → 2023-11-05 09:56 | Outpatient (BNVA) | payer MEDICARE, OTHER, SELFPAY | PROVIDERS: PCP Internal Medicine; Visit Provider Internal Medicine Cardiovascular Disease | DX: I35.0 Nonrheumatic aortic (valve) stenosis (principal); I25.10 Atherosclerotic heart disease of native coronary artery without angina pectoris; I10 Essential (primary) hypertension; I48.0 Paroxysmal atrial fibrillation; Z79.01 Long term (current) use of anticoagulants; Z95.5 Presence of coronary angioplasty implant and graft | CPT/HCPCS: 99212 ==

== ENCOUNTER 2023-11-10 14:19 | Outpatient (AMB) | payer MEDICARE, OTHER, SELFPAY ==
[2023-11-10 14:21] VITALS: BP 114/46; PULSE 72; O2SAT 96
--- NOTE | 2023-11-10 14:21 | HO.NEPHOV ---
Vital Signs 11/10/23 14:21 Height 6 ft BP 114/46 L Blood Pressure Location Lt brachial Position Sitting Pulse 72 Pulse Source Pulse Oximeter Pulse Oximetry (%) 96 Oxygen Delivery Method Room Air Intake Visit Reasons: CKD/ LVM Combine Inspector Required: No Allergies lisinopril [LISINOPRIL] Allergy (Unknown, Verified 11/10/23 14:25) HIVES Medication List - Last Reconciled 11/10/23 by Tato Narvaez MD albuterol sulfate 90 mcg/actuation 2 puffs inhalation Q4H PRN amlodipine 10 mg PO DAILY 90 days atorvastatin 40 mg PO DAILY blood sugar diagnostic (FreeStyle Lite Strips) ONCE A DAY blood-glucose meter (FreeStyle Lite Meter kit) ONCE A DAY cholecalciferol (vitamin D3) 50 mcg PO DAILY docusate sodium (Colace) 100 mg PO BEDTIME fluticasone propion-salmeterol 500-50 mcg/dose (Wixela Inhub) 1 inh inhalation BID hydrochlorothiazide 12.5 mg PO DAILY lancets As directed lancets (FreeStyle Lancets) ONCE A DAY [MANUAL WHEELCHAIR As directed] metoprolol tartrate 25 mg PO BID tamsulosin 0.4 mg PO BEDTIME 90 days tramadol 50 mg PO TID PRN 30 days umeclidinium 62.5 mcg/actuation (Incruse Ellipta) 1 inh PO BEDTIME warfarin 2.5 mg See Protocol PO 6XW warfarin 5 mg See Protocol PO QWEEK HPI Comments Details: Florentino is a pleasant 87-year-old man with a history of longstanding diabetes mellitus for more than 20 years along with hypertension complicated by peripheral vascular disease. He has undergone right lower [place] amputation due to peripheral vascular disease and he has a prosthetic limb. 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 He has been on losartan for quite some time. Losartan was discontinued in July 2023 due to worsening renal function. There was marginal improvement in serum creatinine from 2.1 down to 1.7 mg/dL. He has been referred for evaluation of renal insufficiency. Florentino has a history of smoking for several years he quit smoking in 1987. History of coronary disease status post stent placement. No history of congestive heart failure. Recent echocardiogram showed moderate to severe aortic stenosis. 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 Mother No problems noted. Social History Household Members: Spouse Housing: House Do you presently have visiting nurse or other home services: No Alcohol intake: never Patient Tobacco Use Status: Former Tobacco user Tobacco use type: Cigarette Years Smoked: quit 1987 e-Cigarette/Vaping Use: Never Used Second Hand Smoke Exposure: No service: No Current occupational status: retired Cognitive needs: Yes (cane/walker/wheelchair) Hearing needs: Yes Vision needs: Yes Review of Systems Const Denies fever(s) and Denies weight loss Card Denies chest pain Resp Denies cough and Denies hemoptysis GI Denies abdominal pain, Denies diarrhea and Denies nausea Musc Denies back pain Neuro Denies focal weakness Physical Exam Vital Signs: Last Vital Signs Pulse 72 11/10/23 14:21 BP 114/46 L 11/10/23 14:21 Pulse Ox 96 11/10/23 14:21 Oxygen Delivery Method Room Air 11/10/23 14:21 Const General: comfortable; No acute distress Orientation/consciousness: patient oriented x3 Eyes General: appearance normal, both eyes and all related structures Visual Lowry: normal visual lowry by confrontation Neck Neck: Yes supple and Yes no JVD Resp Effort & Inspection: normal respiratory effort and respiratory effort not decreased Auscultation: rhonchi Cardio Palpation: no palpable S3 and no palpable S4 Heart sounds: no rubs GI Inspection: Yes normal to inspection Palpation (GI): Soft to palpation Percussion: Yes normal to percussion Auscultation: normal bowel sounds General: Yes no CVA tenderness Back/Spine/Pelvis Back: no CVA tenderness Skin General skin exam: no petechiae and no purpura Neuro General: patient oriented x3 and no focal motor deficits Extrem Other: Prosthetic right lower extremity. General: No clubbing and Yes edema (One to 2+ on left lower extreme) Results Reviewed Nephrology Results: Hgb 10.5 g/dl (14.0-18.0) L 10/23/23 WBC 8.1 X10*3/uL (4.8-10.8) 10/23/23 Plt Count 298 X10*3/uL (160-400) 10/23/23 Sodium 136 mmol/L (135-145) 10/23/23 Potassium 4.0 mmol/L (3.3-5.1) 10/23/23 Chloride 104 mmol/L (96-108) 10/23/23 Carbon Dioxide 25 mmol/L (22-29) 10/23/23 BUN 38 mg/dL (9-16) H 10/23/23 Creatinine 1.84 mg/dL (0.5-1.4) H 10/23/23 Calcium 9.0 mg/dL (8.4-10.2) 10/23/23 Urine Creatinine 39.72 mg/dL 10/23/23 Assessment & Plan Assessment & Plan (1) Chronic kidney disease: Code(s): N18.9 - Chronic kidney disease, unspecified Category: Medical Qualifiers: Chronic kidney disease stage: stage 3 (moderate) Chronic kidney disease stage 3 subtype: unspecified whether 3a or 3b Qualified Code(s): N18.30 - Chronic kidney disease, stage 3 unspecified (2) Aortic stenosis: Comment: April 2021 moderate 1.2 cm squared March 2022he left ventricular systolic function is low normal. The calculated ejection fraction is 54% by biplane method. - The basal inferior and basal inferolateral segments are akinetic. - There is moderate to severe aortic valve stenosis. 1.0 cm2 October 2022 1.11 cm squared Code(s): I35.0 - Nonrheumatic aortic (valve) stenosis Category: Medical Qualifiers: Cardiac valve disease etiology: nonrheumatic Qualified Code(s): I35.0 - Nonrheumatic aortic (valve) stenosis (3) Anemia: Code(s): D64.9 - Anemia, unspecified Category: Medical Qualifiers: Anemia type: other cause Other causes of anemia: other cause, not classified Qualified Code(s): D64.89 - Other specified anemias (4) Hypercholesterolemia: Code(s): E78.00 - Pure hypercholesterolemia, unspecified Category: Medical (5) Type 2 diabetes mellitus with hyperglycemia: Comment: Dr. Miguel Code(s): E11.65 - Type 2 diabetes mellitus with hyperglycemia Category: Medical Qualifiers: Diabetes mellitus adjunct faculty for medical terminology insulin use: without adjunct faculty for medical terminology use Qualified Code(s): E11.65 - Type 2 diabetes mellitus with hyperglycemia Plan . 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 Has nephrotic range proteinuria most likely due to underlying diabetic kidney disease. Given the history of significant peripheral has disease underlying renal artery stenosis/ischemic nephropathy is a possibility as well. There could be a component of hypoperfusion which can not be ruled out. Obstructive uropathy should be ruled out. Other glomerular causes should be considered and we shall rule that out as well. At present blood pressure is acceptable. A1c has been under 7%. Recommendation Obtain renal ultrasonogram to rule out obstruction and to assess echogenicity of kidneys. Based on this I will consider a Doppler ultrasound of the renal arteries. Agree with holding losartan for the time being and see if renal function improves. Optimize blood pressure. Maintain blood pressure less than 130/80. Avoid hypotension. Optimize blood sugar and maintain hemoglobin A1c less than 7%. He would benefit from SGLT2 inhibitors. He has anemia due to chronic kidney disease no indication for Epogen yet I will follow this closely Screen for secondary hyperparathyroidism. Ordered PTH All his questions were answered he will return to office in next few weeks I will keep you updated Orders: Orders Parathyroid Hormone Intact Today N18.30 - Chronic kidney disease, stage 3 unspecified UA and rflx microscopic Today N18.30 - Chronic kidney disease, stage 3 unspecified Protein Electrophoresis, Serum Today N18.30 - Chronic kidney disease, stage 3 unspecified US renal BI Today N18.30 - Chronic kidney disease, stage 3 unspecified Complement C3 Today N18.30 - Chronic kidney disease, stage 3 unspecified Complement C4 Today N18.30 - Chronic kidney disease, stage 3 unspecified Neutrophil Cytoplasma Ab Today N18.30 - Chronic kidney disease, stage 3 unspecified Coding Level of Care Code New Pt Level 5 (70167) Diagnoses Stage 3 chronic kidney disease, unspecified whether stage 3a or 3b CKD N18.30 Chronic kidney disease stage: stage 3 (moderate) Chronic kidney disease stage 3 subtype: unspecified whether 3a or 3b Nonrheumatic aortic valve stenosis I35.0 Cardiac valve disease etiology: nonrheumatic Anemia due to other cause, not classified D64.89 Anemia type: other cause Other causes of anemia: other cause, not classified Hypercholesterolemia E78.00 Type 2 diabetes mellitus with hyperglycemia, without long-term current use of insulin E11.65 Diabetes mellitus jail insulin use: without adjunct faculty for medical terminology use
== END 2023-11-10 14:51 | disposition home or self-care (01) ==
PROVIDERS: PCP Internal Medicine; Referring Provider Internal Medicine; Visit Provider Internal Medicine Hypertension Specialist
DX: I12.9 Hypertensive chronic kidney disease with stage 1 through stage 4 chronic kidney disease, or unspecified chronic kidney disease (principal); E11.22 Type 2 diabetes mellitus with diabetic chronic kidney disease; N18.32 Chronic kidney disease, stage 3b; D63.1 Anemia in chronic kidney disease; I35.0 Nonrheumatic aortic (valve) stenosis; E78.00 Pure hypercholesterolemia, unspecified; E11.65 Type 2 diabetes mellitus with hyperglycemia; Z89.611 Acquired absence of right leg above knee
CPT/HCPCS: 99204

== ENCOUNTER → 2023-11-10 14:19 | Outpatient (BNVA) | payer MEDICARE, OTHER, SELFPAY | PROVIDERS: PCP Internal Medicine; Referring Provider Internal Medicine; Visit Provider Internal Medicine Hypertension Specialist | DX: E11.22 Type 2 diabetes mellitus with diabetic chronic kidney disease (principal); N18.30 Chronic kidney disease, stage 3 unspecified; E11.65 Type 2 diabetes mellitus with hyperglycemia; E78.00 Pure hypercholesterolemia, unspecified; D64.89 Other specified anemias; I35.0 Nonrheumatic aortic (valve) stenosis | CPT/HCPCS: 99202 ==

== ENCOUNTER 2023-11-11 11:04 | Outpatient (AMB) | payer MEDICARE, OTHER, SELFPAY ==
--- NOTE | 2023-11-11 11:15 | MHC.OFFVISCO ---
Intake Intake Visit Reasons: Anticoagulation Allergies lisinopril [LISINOPRIL] Allergy (Unknown, Verified 11/11/23 11:26) HIVES Medication List - Last Reconciled 11/11/23 by Elinor Obrien RN albuterol sulfate 90 mcg/actuation 2 puffs inhalation Q4H PRN amlodipine 10 mg PO DAILY 90 days atorvastatin 40 mg PO DAILY blood sugar diagnostic (FreeStyle Lite Strips) ONCE A DAY blood-glucose meter (FreeStyle Lite Meter kit) ONCE A DAY cholecalciferol (vitamin D3) 50 mcg PO DAILY docusate sodium (Colace) 100 mg PO BEDTIME fluticasone propion-salmeterol 500-50 mcg/dose (Wixela Inhub) 1 inh inhalation BID hydrochlorothiazide 12.5 mg PO DAILY lancets As directed lancets (FreeStyle Lancets) ONCE A DAY [MANUAL WHEELCHAIR As directed] metoprolol tartrate 25 mg PO BID tamsulosin 0.4 mg PO BEDTIME 90 days tramadol 50 mg PO TID PRN 30 days umeclidinium 62.5 mcg/actuation (Incruse Ellipta) 1 inh PO BEDTIME warfarin 2.5 mg See Protocol PO 6XW warfarin 5 mg See Protocol PO QWEEK Nursing Note INR 1.6-?? out of therapeutic range of 2-3 denies missed doses Medications and supplements reviewed Patient status: pt to acs in w/c with spouse Medications or supplements: no changes Diet: appetite good- no ensure or boost Denies any signs and symptoms of bleeding or clotting or unusual bruising Bleeding, bruising, clotting discussed Nutritional guidance given: no greens for 2-3 days, eat reds to raise Dose: take 5mg today and tomm, then cont 2.5mg x 6, 5mg x 1 F/U INR Date : 1 week - pt req wed Patient verbalizing understanding of instructions given. Anti-Coag Initial Assessment Social Hx Patient Tobacco Use Status: Former Tobacco user Tobacco use type: Cigarette alcohol intake: never Coding Level of Care Code Est Patient Level 1 Diagnoses Current use of anticoagulant therapy Z79.01 Assessment & Plan Assessment & Plan (1) Current use of anticoagulant therapy: Code(s): Z79.01 - [facility] (current) use of anticoagulants Category: Medical
[2023-11-11 11:16] LABS: Prothrombin Time Whole Bld POC 19.1 sec (11.1-13.5); ~PT, ~INR - Anti Coag Clinic 1.6 (0.9-1.1)
== END 2023-11-11 11:34 | disposition home or self-care (01) ==
LOC: HO.ACS 11:04
PROVIDERS: PCP Internal Medicine; Visit Provider Internal Medicine
DX: Z79.01 Long term (current) use of anticoagulants (principal)

== ENCOUNTER 2023-11-11 11:04 | Outpatient (REF) | payer MEDICARE, OTHER, SELFPAY ==
[2023-11-11 13:12] LABS: Parathyroid Hormone Intact 100.7 pg/mL (8.7-77.1)
[2023-11-11 14:08] LABS: Appearance Urine Turbid; Color Urine Yellow; Glucose Urine UA Negative (Negative); Leukocyte Esterase Urine Large (3+) (Negative); Nitrite Urine Negative (Negative); PH 5.5 (5.0-9.0); UMIC TRIGGER UA YES; Urine Blood Small (1+) (Negative); Urine Ketones Negative (Negative); Urine Protein 300 (3+) mg/dL (Neg-Trace)
[2023-11-11 14:22] LABS: Bacteria Urine 4+ (None Seen); Hyaline Casts Urine 0-2 /LPF (0-2); RBC Urine 0-2 /HPF (0-2); Squamous Epithelial Cell Urine 0-2 /HPF (0-2); WBC Urine >50 /HPF (0-5)
[2023-11-12 11:58] LABS: Complement C3 124 mg/dL
[2023-11-12 21:52] LABS: Prot Elec - Albumin 2.9 g/dL (3.8-4.8); Prot Elec - Alpha1 0.3 g/dL (0.2-0.3); Prot Elec - Alpha2 0.8 g/dL (0.5-0.9); Prot Elec - Beta 1 0.4 g/dL (0.4-0.6); Prot Elec - Beta 2 0.5 g/dL (0.2-0.5); Prot Elec - Gamma 1.1 g/dL (0.8-1.7); Prot Elec - Total Protein 5.9 g/dL (6.1-8.1)
[2023-11-18 10:58] LABS: Neutrophil Cyto Ab Screen NEGATIVE (NEGATIVE)
== END 2023-11-11 11:05 | disposition home or self-care (01) ==
LOC: HO.LAB 11:04
PROVIDERS: Absent Provider Internal Medicine Hypertension Specialist; PCP Internal Medicine; Visit Provider Internal Medicine
DX: N18.30 Chronic kidney disease, stage 3 unspecified (principal)
CPT/HCPCS: 36415; 81001; 83970; 84165; 85610; 86036; 86160; 99211

== ENCOUNTER 2023-11-18 11:10 | Outpatient (AMB) | payer MEDICARE, OTHER, SELFPAY ==
[2023-11-18 11:22] LABS: Prothrombin Time Whole Bld POC 26.7 sec (11.1-13.5); ~PT, ~INR - Anti Coag Clinic 2.2 (0.9-1.1)
--- NOTE | 2023-11-18 11:34 | MHC.OFFVISCO ---
Intake Intake Visit Reasons: Anticoagulation Allergies lisinopril [LISINOPRIL] Allergy (Unknown, Verified 11/18/23 11:17) HIVES Medication List - Last Reconciled 11/18/23 by Zeenat Ball RN albuterol sulfate 90 mcg/actuation 2 puffs inhalation Q4H PRN amlodipine 10 mg PO DAILY 90 days atorvastatin 40 mg PO DAILY blood sugar diagnostic (FreeStyle Lite Strips) ONCE A DAY blood-glucose meter (FreeStyle Lite Meter kit) ONCE A DAY cholecalciferol (vitamin D3) 50 mcg PO DAILY docusate sodium (Colace) 100 mg PO BEDTIME fluticasone propion-salmeterol 500-50 mcg/dose (Wixela Inhub) 1 inh inhalation BID hydrochlorothiazide 12.5 mg PO DAILY lancets As directed lancets (FreeStyle Lancets) ONCE A DAY [MANUAL WHEELCHAIR As directed] metoprolol tartrate 25 mg PO BID tamsulosin 0.4 mg PO BEDTIME 90 days tramadol 50 mg PO TID PRN 30 days umeclidinium 62.5 mcg/actuation (Incruse Ellipta) 1 inh PO BEDTIME warfarin 2.5 mg See Protocol PO 6XW warfarin 5 mg See Protocol PO QWEEK Nursing Note NO CP,SOB,DIET/MED CHANGES,FALLS OR SX OF BLEEDING. PT.STATES THAT HE HAS ADDED THE DAILY CRANBERRY( APPROX.4 OZ) BACK INTO HIS ROUTINE CONTINUE PRESENT DOSE AND FOLLOW UP IN 2 WEEKS,. GOOD UNDERSTANDING OF DOSING INSTR. Anti-Coag Initial Assessment Social Hx Patient Tobacco Use Status: Former Tobacco user Tobacco use type: Cigarette alcohol intake: never Coding Level of Care Code Est Patient Level 1 Diagnoses Current use of anticoagulant therapy Z79.01 Assessment & Plan Assessment & Plan (1) Current use of anticoagulant therapy: Code(s): Z79.01 - intermediate accountant (current) use of anticoagulants Category: Medical
== END 2023-11-18 11:38 | disposition home or self-care (01) ==
LOC: HO.ACS 11:10
PROVIDERS: PCP Internal Medicine; Visit Provider Internal Medicine
DX: Z79.01 Long term (current) use of anticoagulants (principal)

== ENCOUNTER → 2023-11-18 11:10 | Outpatient (BNVA) | payer MEDICARE, OTHER, SELFPAY | PROVIDERS: PCP Internal Medicine; Visit Provider Internal Medicine | DX: I48.0 Paroxysmal atrial fibrillation (principal); Z79.01 Long term (current) use of anticoagulants; Z51.81 Encounter for therapeutic drug level monitoring | CPT/HCPCS: 85610; 99211 ==

== ENCOUNTER 2023-11-26 10:23 | Outpatient (AMB) | payer MEDICARE, OTHER, SELFPAY ==
--- NOTE | 2023-11-26 10:34 | MHC.OFFVIS ---
Intake Visit Reasons: 6m/PVR Intake Note: Patient is Present for Med Review Urology Med: Tamsulosin Antibiotic Allergy:None Blood Thinner:Warfarin Last PVR: 0 Patient states he is still on tamsulosin and has no issues with current urination Systems Integration Engineer Required: No Line Up Examiner: Line Up Examiner Present Accompanied by: Family/Other Allergies lisinopril [LISINOPRIL] Allergy (Unknown, Verified 11/26/23 10:46) HIVES HPI Comments Details: Florentino is a pleasant male. He is a patient of Dr. Stewart. 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 Mother No problems noted. Social History Household Members: Spouse Housing: House Do you presently have visiting nurse or other home services: No Alcohol intake: never Patient Tobacco Use Status: Former Tobacco user Tobacco use type: Cigarette Years Smoked: quit 1987 e-Cigarette/Vaping Use: Never Used Second Hand Smoke Exposure: No service: No Current occupational status: retired Cognitive needs: Yes (cane/walker/wheelchair) Hearing needs: Yes Vision needs: Yes Assessment & Plan Assessment & Plan (1) Urinary urgency: Code(s): R39.15 - Urgency of urination Category: Medical (2) Bladder outlet obstruction: Code(s): N32.0 - Bladder-neck obstruction Category: Medical Plan 12 month follow-up office PVR Patient Instructions: Imaging studies, laboratory and physical exam results were discussed and reviewed in detail. No major barriers to patient understanding were identified. An opportunity to ask questions regarding the treatment plan was provided. All questions were answered. The patient expressed understanding and agreement with the above treatment plan. The patient is aware they should contact our office by phone for worsening of their current condition or the appearance of new urologic symptoms. Compliance is encouraged with any medications and followup testing that is ordered. It is a privilege to participate in the urologic care of your patient. If you have any questions or concerns regarding treatment for the above conditions, or other urologic issues, please do not hesitate to contact me. The office telephone contact is [phone]. This note is constructed using voice recognition software. While every effort has been made to ensure accuracy rheumatologist errors may have been included. Yours sincerely, Dr Maynor Wright MD, [facility] - Urology Providers of Expert, Compassionate Care for the Genitourinary System Coding Level of Care Code Est Pt Level 3 (22115) Diagnoses Urinary urgency R39.15 Bladder outlet obstruction N32.0
== END 2023-11-26 11:01 | disposition home or self-care (01) ==
PROVIDERS: PCP Internal Medicine; Visit Provider Urology
DX: R39.15 Urgency of urination (principal); N32.0 Bladder-neck obstruction
CPT/HCPCS: 99213

== ENCOUNTER → 2023-11-26 10:23 | Outpatient (BNVA) | payer MEDICARE, OTHER, SELFPAY | PROVIDERS: PCP Internal Medicine; Visit Provider Urology | DX: R39.15 Urgency of urination (principal); N32.0 Bladder-neck obstruction | CPT/HCPCS: 99212 ==

== ENCOUNTER 2023-11-30 14:18 | Outpatient (REF) | payer MEDICARE, OTHER, SELFPAY ==
--- NOTE | ~2023-11-30 | US_ITS ---
EXAMINATION: US RETROPERITONEAL LIMITED (RENAL ONLY) CLINICAL INFORMATION: Chronic kidney disease, stage 3 unspecified. COMPARISON: CT abdomen and pelvis 06/05/2015. TECHNIQUE: Real-time imaging of the kidneys. FINDINGS: RIGHT KIDNEY: 10.5 x 4.7 x 5.5 cm (SAG x AP x TRV). The kidney is normal in size, contour, and echogenicity. Renal cortical thickness is normal. No calculi or focal parenchymal lesions. No hydronephrosis. LEFT KIDNEY: 9.6 x 5.2 x 5.1 cm (SAG x AP x TRV). The kidney is normal in size, contour, and echogenicity. Renal cortical thickness is normal. No focal parenchymal lesions or hydronephrosis. Clustered of nonobstructive calculi in the lower pole measuring in conjunction up to 0.9 cm. US/US renal BI IMPRESSION: Nonobstructive left-sided renal calculi. Electronically signed by: Lorie Reyes MD 12/08/2023 04:05 PM EDT
== END 2023-11-30 14:19 | disposition home or self-care (01) ==
LOC: HO.US 14:18
PROVIDERS: PCP Internal Medicine; Visit Provider Internal Medicine Hypertension Specialist
DX: N18.30 Chronic kidney disease, stage 3 unspecified (principal)
CPT/HCPCS: 76775

== ENCOUNTER 2023-12-02 11:09 | Outpatient (AMB) | payer MEDICARE, OTHER, SELFPAY ==
--- NOTE | 2023-12-02 11:35 | MHC.OFFVISCO ---
Intake Intake Visit Reasons: Anticoagulation Allergies lisinopril [LISINOPRIL] Allergy (Unknown, Verified 12/02/23 11:27) HIVES Medication List - Last Reconciled 12/02/23 by Taya Polk RN albuterol sulfate 90 mcg/actuation 2 puffs inhalation Q4H PRN amlodipine 10 mg PO DAILY 90 days atorvastatin 40 mg PO DAILY blood sugar diagnostic (FreeStyle Lite Strips) ONCE A DAY blood-glucose meter (FreeStyle Lite Meter kit) ONCE A DAY cholecalciferol (vitamin D3) 50 mcg PO DAILY docusate sodium (Colace) 100 mg PO BEDTIME fluticasone propion-salmeterol 500-50 mcg/dose (Wixela Inhub) 1 inh inhalation BID hydrochlorothiazide 12.5 mg PO DAILY lancets As directed lancets (FreeStyle Lancets) ONCE A DAY [MANUAL WHEELCHAIR As directed] metoprolol tartrate 25 mg PO BID tamsulosin 0.4 mg PO BEDTIME 90 days tramadol 50 mg PO TID PRN 30 days umeclidinium 62.5 mcg/actuation (Incruse Ellipta) 1 inh PO BEDTIME warfarin 2.5 mg See Protocol PO 6XW warfarin 5 mg See Protocol PO QWEEK Nursing Note INR ??3.3 out of therapeutic range of 2-3 Medications and supplements reviewed Patient status: usual state of health for pt Medications or supplements: no changes Diet: no changes Denies any signs and symptoms of bleeding or clotting or unusual bruising Bleeding, bruising, clotting discussed Nutritional guidance given: to have a serving of greens today and tomorrow Dose: usual dose of 2.5mg X 6 days and 5mg X 1 day (Wed) but only take 2.5mg Today and take the 5mg tomorrow. F/U INR Date : 2 weeks?? Patient verbalizing understanding of instructions given. Anti-Coag Initial Assessment Social Hx Patient Tobacco Use Status: Former Tobacco user Tobacco use type: Cigarette alcohol intake: never Coding Level of Care Code Est Patient Level 1 Diagnoses Current use of anticoagulant therapy Z79.01 Results AMB INR Fingerstick AMB INR Fingerstick 3.3 Last Edit by Taya Polk RN on 12/02/23 11:42 interface delay Assessment & Plan Assessment & Plan (1) Current use of anticoagulant therapy: Code(s): Z79.01 - medical terminologist (current) use of anticoagulants Category: Medical
[2023-12-02 11:45] LABS: Prothrombin Time Whole Bld POC 39.4 sec (11.1-13.5); ~PT, ~INR - Anti Coag Clinic 3.3 (0.9-1.1)
== END 2023-12-02 11:48 | disposition home or self-care (01) ==
LOC: HO.ACS 11:09
PROVIDERS: PCP Internal Medicine; Visit Provider Internal Medicine
DX: Z79.01 Long term (current) use of anticoagulants (principal)

== ENCOUNTER → 2023-12-02 11:09 | Outpatient (BNVA) | payer MEDICARE, OTHER, SELFPAY | PROVIDERS: PCP Internal Medicine; Visit Provider Internal Medicine | DX: Z95.2 Presence of prosthetic heart valve (principal); Z79.01 Long term (current) use of anticoagulants; Z51.81 Encounter for therapeutic drug level monitoring | CPT/HCPCS: 85610; 99211 ==

== ENCOUNTER 2023-12-22 10:37 | Outpatient (AMB) | payer MEDICARE, OTHER, SELFPAY ==
[2023-12-22 10:45] LABS: Prothrombin Time Whole Bld POC 38.9 sec (11.1-13.5); ~PT, ~INR - Anti Coag Clinic 3.2 (0.9-1.1)
--- NOTE | 2023-12-22 10:56 | MHC.OFFVISCO ---
Intake Intake Visit Reasons: Anticoagulation Allergies lisinopril [LISINOPRIL] Allergy (Unknown, Verified 12/22/23 10:39) HIVES Medication List - Last Reconciled 12/22/23 by Taya Polk RN albuterol sulfate 90 mcg/actuation 2 puffs inhalation Q4H PRN amlodipine 10 mg PO DAILY 90 days atorvastatin 40 mg PO DAILY blood sugar diagnostic (FreeStyle Lite Strips) ONCE A DAY blood-glucose meter (FreeStyle Lite Meter kit) ONCE A DAY cholecalciferol (vitamin D3) 50 mcg PO DAILY docusate sodium (Colace) 100 mg PO BEDTIME fluticasone propion-salmeterol 500-50 mcg/dose (Wixela Inhub) 1 inh inhalation BID hydrochlorothiazide 12.5 mg PO DAILY lancets As directed lancets (FreeStyle Lancets) ONCE A DAY [MANUAL WHEELCHAIR As directed] metoprolol tartrate 25 mg PO BID tamsulosin 0.4 mg PO BEDTIME 90 days tramadol 50 mg PO TID PRN 30 days umeclidinium 62.5 mcg/actuation (Incruse Ellipta) 1 inh PO BEDTIME warfarin 2.5 mg See Protocol PO 6XW warfarin 5 mg See Protocol PO QWEEK Nursing Note INR 3.2?out of therapeutic range of 3.2 Medications and supplements reviewed Patient status: usual state of health Medications or supplements: no changes Diet: usual diet for pt Denies any signs and symptoms of bleeding or clotting or unusual bruising Bleeding, bruising, clotting discussed Nutritional guidance given: to have a serving of greens today Dose: hold today's dose of 2.5mg as pt only came down to 3.2 after last visit which was 3.3 with no hold. Then resume usual dose of 2.5mg X 6 days and 5mg X 1 day F/U INR Date : ?2 weeks Patient verbalizing understanding of instructions given. Anti-Coag Initial Assessment Social Hx Patient Tobacco Use Status: Former Tobacco user Tobacco use type: Cigarette alcohol intake: never Coding Level of Care Code Est Patient Level 1 Diagnoses Current use of anticoagulant therapy Z79.01 Results AMB INR Fingerstick AMB INR Fingerstick 3.2 Last Edit by Taya Polk RN on 12/22/23 10:45 interface delay Assessment & Plan Assessment & Plan (1) Current use of anticoagulant therapy: Code(s): Z79.01 - intermodal dispatcher (current) use of anticoagulants Category: Medical
== END 2023-12-22 11:01 | disposition home or self-care (01) ==
LOC: HO.ACS 10:37
PROVIDERS: PCP Internal Medicine; Visit Provider Internal Medicine
DX: Z79.01 Long term (current) use of anticoagulants (principal)

== ENCOUNTER → 2023-12-22 10:37 | Outpatient (BNVA) | payer MEDICARE, OTHER, SELFPAY | PROVIDERS: PCP Internal Medicine; Visit Provider Internal Medicine | DX: I48.0 Paroxysmal atrial fibrillation (principal); Z79.01 Long term (current) use of anticoagulants; Z51.81 Encounter for therapeutic drug level monitoring | CPT/HCPCS: 85610; 99211 ==

== ENCOUNTER 2023-12-24 11:51 | Outpatient (AMB) | payer MEDICARE, OTHER, SELFPAY ==
[2023-12-24 11:54] VITALS: BP 130/40; PULSE 50; O2SAT 99
--- NOTE | 2023-12-24 11:54 | HO.NEPHOV ---
Vital Signs 12/24/23 11:54 Height 6 ft BP 130/40 L Blood Pressure Location Rt brachial Position Sitting Pulse 50 Pulse Source Pulse Oximeter Pulse Oximetry (%) 99 Oxygen Delivery Method Room Air Intake Visit Reasons: CKD/ Conf Dispatcher Tugboat Required: No Accompanied by: Spouse Allergies lisinopril [LISINOPRIL] Allergy (Unknown, Verified 12/24/23 11:56) HIVES Medication List - Last Reconciled 12/24/23 by Tato Narvaez MD albuterol sulfate 90 mcg/actuation 2 puffs inhalation Q4H PRN amlodipine 10 mg PO DAILY 90 days atorvastatin 40 mg PO DAILY blood sugar diagnostic (FreeStyle Lite Strips) ONCE A DAY blood-glucose meter (FreeStyle Lite Meter kit) ONCE A DAY cholecalciferol (vitamin D3) 50 mcg PO DAILY docusate sodium (Colace) 100 mg PO BEDTIME fluticasone propion-salmeterol 500-50 mcg/dose (Wixela Inhub) 1 inh inhalation BID hydrochlorothiazide 12.5 mg PO DAILY lancets As directed lancets (FreeStyle Lancets) ONCE A DAY [MANUAL WHEELCHAIR As directed] metoprolol tartrate 25 mg PO BID tamsulosin 0.4 mg PO BEDTIME 90 days tramadol 50 mg PO TID PRN 30 days umeclidinium 62.5 mcg/actuation (Incruse Ellipta) 1 inh PO BEDTIME warfarin 2.5 mg See Protocol PO 6XW warfarin 5 mg See Protocol PO QWEEK HPI Comments Details: Florentino is a pleasant 87-year-old man with a history of longstanding diabetes mellitus for more than 20 years along with hypertension complicated by peripheral vascular disease. He has undergone right lower Whitney amputation due to peripheral vascular disease and he has a prosthetic limb. 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 He has been on losartan for quite some time. Losartan was discontinued in July 2023 due to worsening renal function. There was marginal improvement in serum creatinine from 2.1 down to 1.7 mg/dL. He has been referred for evaluation of renal insufficiency. Florentino has a history of smoking for several years he quit smoking in 1987. History of coronary disease status post stent placement. No history of congestive heart failure. Recent echocardiogram showed moderate to severe aortic stenosis. 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 Mother No problems noted. Social History Household Members: Spouse Housing: House Do you presently have visiting nurse or other home services: No Alcohol intake: never Patient Tobacco Use Status: Former Tobacco user Tobacco use type: Cigarette Years Smoked: quit 1987 e-Cigarette/Vaping Use: Never Used Second Hand Smoke Exposure: No service: No Current occupational status: retired Cognitive needs: Yes (cane/walker/wheelchair) Hearing needs: Yes Vision needs: Yes Physical Exam Vital Signs: Last Vital Signs Pulse 50 12/24/23 11:54 BP 130/40 L 12/24/23 11:54 Pulse Ox 99 12/24/23 11:54 Oxygen Delivery Method Room Air 12/24/23 11:54 Const General: comfortable; No acute distress Orientation/consciousness: patient oriented x3 Eyes General: appearance normal, both eyes and all related structures Visual Lowry: normal visual lowry by confrontation Neck Neck: Yes supple and Yes no JVD Resp Effort & Inspection: normal respiratory effort and respiratory effort not decreased Auscultation: rhonchi Cardio Palpation: no palpable S3 and no palpable S4 Heart sounds: no rubs GI Inspection: Yes normal to inspection Palpation (GI): Soft to palpation Percussion: Yes normal to percussion Auscultation: normal bowel sounds General: Yes no CVA tenderness Back/Spine/Pelvis Back: no CVA tenderness Skin General skin exam: no petechiae and no purpura Neuro General: patient oriented x3 and no focal motor deficits Extrem Other: Prosthetic right lower extremity. General: No clubbing and Yes edema (One to 2+ on left lower extreme) Results Reviewed Nephrology Results: PTH Intact 100.7 pg/mL (8.7-77.1) H 11/11/23 Urine Protein 300 (3+) mg/dL (Neg-Trace) H 11/11/23 Renal US 11/30/23 Assessment & Plan Assessment & Plan (1) Chronic kidney disease: Code(s): N18.9 - Chronic kidney disease, unspecified Category: Medical Qualifiers: Chronic kidney disease stage: stage 3 (moderate) Chronic kidney disease stage 3 subtype: unspecified whether 3a or 3b Qualified Code(s): N18.30 - Chronic kidney disease, stage 3 unspecified (2) Aortic stenosis: Comment: April 2021 moderate 1.2 cm squared March 2022he left ventricular systolic function is low normal. The calculated ejection fraction is 54% by biplane method. - The basal inferior and basal inferolateral segments are akinetic. - There is moderate to severe aortic valve stenosis. 1.0 cm2 October 2022 1.11 cm squared Code(s): I35.0 - Nonrheumatic aortic (valve) stenosis Category: Medical Qualifiers: Cardiac valve disease etiology: nonrheumatic Qualified Code(s): I35.0 - Nonrheumatic aortic (valve) stenosis (3) Anemia: Comment: Most likely due to EPO deficiency due to CKD Code(s): D64.9 - Anemia, unspecified Category: Medical Qualifiers: Anemia type: other cause Other causes of anemia: other cause, not classified Qualified Code(s): D64.89 - Other specified anemias (4) Hypercholesterolemia: Code(s): E78.00 - Pure hypercholesterolemia, unspecified Category: Medical (5) Type 2 diabetes mellitus with hyperglycemia: Code(s): E11.65 - Type 2 diabetes mellitus with hyperglycemia Category: Medical Qualifiers: Diabetes mellitus [facility] insulin use: without terminal supervisor use Qualified Code(s): E11.65 - Type 2 diabetes mellitus with hyperglycemia Plan . 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 Has nephrotic range proteinuria most likely due to underlying diabetic kidney disease. Given the history of significant peripheral vascular disease underlying renal artery stenosis/ischemic nephropathy is a possibility as well. Obstructive uropathy ruled out bu sonogram Other glomerular causes seem unlikely- serology eseentially normal. At present blood pressure is acceptable. A1c has been under 7%. Recommendation Cautiously resume losartan at a low dose of 25 mg QD and watch renal function Optimize blood pressure. Maintain blood pressure less than 130/80. Avoid hypotension. Optimize blood sugar and maintain hemoglobin A1c less than 7%. He would benefit from SGLT2 inhibitors. Added Farxiga 5 mg QD He has anemia due to chronic kidney disease no indication for Epogen yet ,I will follow this closely secondary hyperparathyroidism. Mild elevationin PTH: 100 pg/ml Ca normal Whall watch Orders: Orders Basic Metabolic Panel 1 Month N18.30 - Chronic kidney disease, stage 3 unspecified Medications: New losartan 25 mg PO DAILY 30 tabs 3RF dapagliflozin propanediol (Farxiga) 5 mg PO DAILY 30 tabs 1RF Coding Level of Care Code Est Pt Level 4 (35767) Complex EM visit Add On G2211 Diagnoses Stage 3 chronic kidney disease, unspecified whether stage 3a or 3b CKD N18.30 Chronic kidney disease stage: stage 3 (moderate) Chronic kidney disease stage 3 subtype: unspecified whether 3a or 3b Nonrheumatic aortic valve stenosis I35.0 Cardiac valve disease etiology: nonrheumatic Anemia due to other cause, not classified D64.89 Anemia type: other cause Other causes of anemia: other cause, not classified Hypercholesterolemia E78.00 Type 2 diabetes mellitus with hyperglycemia, without long-term current use of insulin E11.65 Diabetes mellitus [facility] insulin use: without [facility] use
== END 2023-12-24 12:12 | disposition home or self-care (01) ==
PROVIDERS: PCP Internal Medicine; Visit Provider Internal Medicine Hypertension Specialist
DX: E11.22 Type 2 diabetes mellitus with diabetic chronic kidney disease (principal); N18.32 Chronic kidney disease, stage 3b; D63.1 Anemia in chronic kidney disease; I35.0 Nonrheumatic aortic (valve) stenosis; E78.00 Pure hypercholesterolemia, unspecified
CPT/HCPCS: 99214; G2211

== ENCOUNTER → 2023-12-24 11:51 | Outpatient (BNVA) | payer MEDICARE, OTHER, SELFPAY | PROVIDERS: PCP Internal Medicine; Visit Provider Internal Medicine Hypertension Specialist | DX: E11.22 Type 2 diabetes mellitus with diabetic chronic kidney disease (principal); E11.51 Type 2 diabetes mellitus with diabetic peripheral angiopathy without gangrene; E11.65 Type 2 diabetes mellitus with hyperglycemia; I12.9 Hypertensive chronic kidney disease with stage 1 through stage 4 chronic kidney disease, or unspecified chronic kidney disease; N18.30 Chronic kidney disease, stage 3 unspecified; I35.0 Nonrheumatic aortic (valve) stenosis; D64.89 Other specified anemias; E78.00 Pure hypercholesterolemia, unspecified; Z89.611 Acquired absence of right leg above knee; Z87.891 Personal history of nicotine dependence | CPT/HCPCS: 99212 ==

== ENCOUNTER 2024-01-05 10:46 | Outpatient (AMB) | payer MEDICARE, OTHER, SELFPAY ==
--- NOTE | 2024-01-05 11:15 | MHC.OFFVISCO ---
Intake Intake Visit Reasons: Anticoagulation Allergies lisinopril [LISINOPRIL] Allergy (Unknown, Verified 01/05/24 11:08) HIVES Medication List - Last Reconciled 01/05/24 by Elinor Obrien RN albuterol sulfate 90 mcg/actuation 2 puffs inhalation Q4H PRN amlodipine 10 mg PO DAILY 90 days atorvastatin 40 mg PO DAILY blood sugar diagnostic (FreeStyle Lite Strips) ONCE A DAY blood-glucose meter (FreeStyle Lite Meter kit) ONCE A DAY cholecalciferol (vitamin D3) 50 mcg PO DAILY dapagliflozin propanediol (Farxiga) 5 mg PO DAILY docusate sodium (Colace) 100 mg PO BEDTIME fluticasone propion-salmeterol 500-50 mcg/dose (Wixela Inhub) 1 inh inhalation BID hydrochlorothiazide 12.5 mg PO DAILY lancets As directed lancets (FreeStyle Lancets) ONCE A DAY losartan 25 mg PO DAILY [MANUAL WHEELCHAIR As directed] metoprolol tartrate 25 mg PO BID tamsulosin 0.4 mg PO BEDTIME 90 days tramadol 50 mg PO TID PRN 30 days umeclidinium 62.5 mcg/actuation (Incruse Ellipta) 1 inh PO BEDTIME warfarin 2.5 mg See Protocol PO 6XW warfarin 5 mg See Protocol PO QWEEK Nursing Note INR: 2.5- in therapeutic range of 2-3 Medications and supplements reviewed- losartan and farxiga- no interaction per micromedex No changes in health, diet, medications, or supplements, Denies any signs and symptoms of bleeding or bruising or clotting. Bleeding, bruising, clotting discussed Nutritional guidance given - eat greens 2-3 times per week Dose: 2.5mg x 6, 5mg x 1 F/U INR: pt req 3 weeks Patient verbalizes understanding of instructions given pt to acs in w/c, c.o rl amp pain- took advil- aware of bleed risk, states took with food, tylenol enc Anti-Coag Initial Assessment Social Hx Patient Tobacco Use Status: Former Tobacco user Tobacco use type: Cigarette alcohol intake: never Coding Level of Care Code Est Patient Level 1 Diagnoses Current use of anticoagulant therapy Z79.01 Assessment & Plan Assessment & Plan (1) Current use of anticoagulant therapy: Code(s): Z79.01 - longterm (current) use of anticoagulants Category: Medical
[2024-01-05 11:16] LABS: Prothrombin Time Whole Bld POC 29.9 sec (11.1-13.5); ~PT, ~INR - Anti Coag Clinic 2.5 (0.9-1.1)
== END 2024-01-05 11:22 | disposition home or self-care (01) ==
LOC: HO.ACS 10:46
PROVIDERS: PCP Internal Medicine; Visit Provider Internal Medicine
DX: Z79.01 Long term (current) use of anticoagulants (principal)

== ENCOUNTER → 2024-01-05 10:46 | Outpatient (BNVA) | payer MEDICARE, OTHER, SELFPAY | PROVIDERS: PCP Internal Medicine; Visit Provider Internal Medicine | DX: I48.0 Paroxysmal atrial fibrillation (principal); Z79.01 Long term (current) use of anticoagulants; Z51.81 Encounter for therapeutic drug level monitoring | CPT/HCPCS: 85610; 99211 ==

== ENCOUNTER 2024-01-20 12:29 | Outpatient (REF) | payer MEDICARE, OTHER, SELFPAY ==
[2024-01-20 14:03] LABS: Anion Gap 14 (12-20); Blood Urea Nitrogen 56 mg/dL (9-16); Calcium 8.6 mg/dL (8.4-10.2); Carbon Dioxide 22 mmol/L (22-29); Chloride 104 mmol/L (96-108); Estimated Glomerular Filt Rate 25; Glucose Random 138 mg/dL (60-115); Potassium 3.9 mmol/L (3.3-5.1); Sodium 136 mmol/L (135-145)
== END 2024-01-20 12:30 | disposition home or self-care (01) ==
LOC: HO.LAB 12:29
PROVIDERS: PCP Internal Medicine; Visit Provider Internal Medicine Hypertension Specialist
DX: N18.30 Chronic kidney disease, stage 3 unspecified (principal)
CPT/HCPCS: 36415; 80048

== ENCOUNTER 2024-01-26 09:40 | Outpatient (AMB) | payer MEDICARE, OTHER, SELFPAY ==
[2024-01-26 09:40] VITALS: BP 128/40; PULSE 64; O2SAT 99
--- NOTE | 2024-01-26 09:40 | HO.NEPHOV_ITS ---
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 Required: No Accompanied by: spouse and daughter Allergies lisinopril [LISINOPRIL] Allergy (Unknown, Verified 01/26/24 09:43) HIVES Medication List - Last Reconciled 01/26/24 by Tato Narvaez MD albuterol sulfate 90 mcg/actuation 2 puffs inhalation Q4H PRN amlodipine 10 mg PO DAILY 90 days atorvastatin 40 mg PO DAILY blood sugar diagnostic (FreeStyle Lite Strips) ONCE A DAY blood-glucose meter (FreeStyle Lite Meter kit) ONCE A DAY cholecalciferol (vitamin D3) 50 mcg PO DAILY dapagliflozin propanediol (Farxiga) 5 mg PO DAILY docusate sodium (Colace) 100 mg PO BEDTIME fluticasone propion-salmeterol 500-50 mcg/dose (Wixela Inhub) 1 inh inhalation BID hydrochlorothiazide 12.5 mg PO DAILY lancets As directed lancets (FreeStyle Lancets) ONCE A DAY losartan 25 mg PO DAILY [MANUAL WHEELCHAIR As directed] metoprolol tartrate 25 mg PO BID tamsulosin 0.4 mg PO BEDTIME 90 days tramadol 50 mg PO TID PRN 30 days umeclidinium 62.5 mcg/actuation (Incruse Ellipta) 1 inh PO BEDTIME warfarin 2.5 mg See Protocol PO 6XW warfarin 5 mg See Protocol PO QWEEK HPI Comments Details: Florentino is a pleasant 87-year-old man with a history of longstanding diabetes mellitus for more than 20 years along with hypertension complicated by peripheral vascular disease. He has undergone right lower limb amputation due to peripheral vascular disease and he has a prosthetic limb. 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 He has been on losartan for quite some time. Losartan was discontinued in July 2023 due to worsening renal function. There was marginal improvement in serum creatinine from 2.1 down to 1.7 mg/dL. He has been referred for evaluation of renal insufficiency. Florentino has a history of smoking for several years he quit smoking in 1987. History of coronary disease status post stent placement. No history of con gestive heart failure. Recent echocardiogram showed moderate to severe aortic stenosis. 12/24/23 Doing well No significant change in creatinine after stopping Losartan 01/26/24 Accompanied by family Overall doing well. No shortness of breath. No urinary stenosis. 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 Mother No problems noted. Social History Household Members: Spouse Housing: House Do you presently have visiting nurse or other home services: No Alcohol intake: never Patient Tobacco Use Status: Former Tobacco user Tobacco use type: Cigarette Years Smoked: quit 1987 e-Cigarette/Vaping Use: Never Used Second Hand Smoke Exposure: No service: No Current occupational status: retired Cognitive needs: Yes (cane/walker/wheelchair) Hearing needs: Yes Vision needs: Yes Physical Exam Vital Signs: Last Vital Signs Pulse 64 01/26/24 09:40 BP 128/40 L 01/26/24 09:40 Pulse Ox 99 01/26/24 09:40 Oxygen Delivery Method Room Air 01/26/24 09:40 Const General: comfortable; No acute distress Orientation/consciousness: patient oriented x3 Eyes General: appearance normal, both eyes and all related structures Visual Lowry: normal visual lowry by confrontation Neck Neck: Yes supple and Yes no JVD Resp Effort & Inspection: normal respiratory effort and respiratory effort not decreased Auscultation: rhonchi Cardio Palpation: no palpable S3 and no palpable S4 Heart sounds: no rubs GI Inspection: Yes normal to inspection Palpation (GI): Soft to palpation Percussion: Yes normal to percussion Auscultation: normal bowel sounds General: Yes no CVA tenderness Back/Spine/Pelvis Back: no CVA tenderness Skin General skin exam: no petechiae and no purpura Neuro General: patient oriented x3 and no focal motor deficits Extrem Other: Prosthetic right lower extremity. General: No clubbing and Yes edema (One to 2+ on left lower extreme) Results Reviewed Nephrology Results: Sodium 136 mmol/L (135-145) 01/20/24 Potassium 3.9 mmol/L (3.3-5.1) 01/20/24 Chloride 104 mmol/L (96-108) 01/20/24 Carbon Dioxide 22 mmol/L (22-29) 01/20/24 BUN 56 mg/dL (9-16) H 01/20/24 Creatinine 2.44 mg/dL (0.5-1.4) H 01/20/24 Calcium 8.6 mg/dL (8.4-10.2) 01/20/24 Renal US 11/30/23 Assessment & Plan Assessment & Plan (1) Chronic kidney disease: Code(s): N18.9 - Chronic kidney disease, unspecified Category: Medical Qualifiers: Chronic kidney disease stage: stage 3 (moderate) Chronic kidney disease stage 3 subtype: unspecified whether 3a or 3b Qualified Code(s): N18.30 - Chronic kidney disease, stage 3 unspecified (2) Aortic stenosis: Comment: April 2021 moderate 1.2 cm squared March 2022he left ventricular systolic function is low normal. The calculated ejection fraction is 54% by biplane method. - The basal inferior and basal inferolateral segments are akinetic. - There is moderate to severe aortic valve stenosis. 1.0 cm2 October 2022 1.11 cm squared Code(s): I35.0 - Nonrheumatic aortic (valve) stenosis Category: Medical Qualifiers: Cardiac valve disease etiology: nonrheumatic Qualified Code(s): I35.0 - Nonrheumatic aortic (valve) stenosis (3) Anemia: Comment: Most likely due to EPO deficiency due to CKD Code(s): D64.9 - Anemia, unspecified Category: Medical Qualifiers: Anemia type: other cause Other causes of anemia: other cause, not classified Qualified Code(s): D64.89 - Other specified anemias (4) Hypercholesterolemia: Code(s): E78.00 - Pure hypercholesterolemia, unspecified Category: Medical (5) Type 2 diabetes mellitus with hyperglycemia: Code(s): E11.65 - Type 2 diabetes mellitus with hyperglycemia Category: Medical Qualifiers: Diabetes mellitus long-term insulin use: without long-term use Qualified Code(s): E11.65 - Type 2 diabetes mellitus with hyperglycemia Plan . 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 Has nephrotic range proteinuria most likely due to underlying diabetic kidney disease. Given the history of significant peripheral vascular disease underlying renal artery stenosis/ischemic nephropathy is a possibility as well. Creatinine is bumped up after restarting losartan She will watch creatinine for now. If the creatinine continues to increase we might have to discontinue losartan as well. Obstructive uropathy ruled out by sonogram Other glomerular causes seem unlikely- serology essentially normal. At present blood pressure is acceptable. A1c has been under 7%. Recommendation Discontinue hydrochlorothiazide 12.5 mg q.d. Keep losartan at a low dose of 25 mg QD and watch renal function Optimize blood pressure. Maintain blood pressure less than 130/80. Avoid hypotension. Optimize blood sugar and maintain hemoglobin A1c less than 7%. He would benefit from SGLT2 inhibitors. Keep Farxiga 5 mg QD He has anemia due to chronic kidney disease no indication for Epogen yet ,I will follow this closely secondary hyperparathyroidism. Mild elevationin PTH: 100 pg/ml Ca normal Shall watch Mild anemia. Hemoglobin stable. No indication for Epogen. Orders: Orders Complete Blood Count no Diff 2 Months E78.00 - Pure hypercholesterolemia, unspecified, N18.30 - Chronic kidney disease, stage 3 unspecified Basic Metabolic Panel 2 Months E78.00 - Pure hypercholesterolemia, unspecified, N18.30 - Chronic kidney disease, stage 3 unspecified Phosphorus 2 Months E78.00 - Pure hypercholesterolemia, unspecified, N18.30 - Chronic kidney disease, stage 3 unspecified Parathyroid Hormone Intact 2 Months E78.00 - Pure hypercholesterolemia, unspecified, N18.30 - Chronic kidney disease, stage 3 unspecified Medications: Discontinued hydrochlorothiazide Discontinued Reason: Doctor's Order 12.5 mg PO DAILY 5 tabs 3RF Coding Level of Care Code Est Pt Level 4 (20664) Complex EM visit Add On G2211 Diagnoses Stage 3 chronic kidney disease, unspecified whether stage 3a or 3b CKD N18.30 Chronic kidney disease stage: stage 3 (moderate) Chronic kidney disease stage 3 subtype: unspecified whether 3a or 3b Nonrheumatic aortic valve stenosis I35.0 Cardiac valve disease etiology: nonrheumatic Anemia due to other cause, not classified D64.89 Anemia type: other cause Other causes of anemia: other cause, not classified Hypercholesterolemia E78.00 Type 2 diabetes mellitus with hyperglycemia, without long-term current use of insulin E11.65 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
== END 2024-01-26 10:07 | disposition home or self-care (01) ==
PROVIDERS: PCP Internal Medicine; Visit Provider Internal Medicine Hypertension Specialist
DX: E11.22 Type 2 diabetes mellitus with diabetic chronic kidney disease (principal); N18.30 Chronic kidney disease, stage 3 unspecified; I35.0 Nonrheumatic aortic (valve) stenosis; D64.89 Other specified anemias; E78.00 Pure hypercholesterolemia, unspecified
CPT/HCPCS: 99214; G2211

== ENCOUNTER → 2024-01-26 09:40 | Outpatient (BNVA) | payer MEDICARE, OTHER, SELFPAY | PROVIDERS: PCP Internal Medicine; Visit Provider Internal Medicine Hypertension Specialist | DX: E11.22 Type 2 diabetes mellitus with diabetic chronic kidney disease (principal); E11.51 Type 2 diabetes mellitus with diabetic peripheral angiopathy without gangrene; E11.65 Type 2 diabetes mellitus with hyperglycemia; E78.00 Pure hypercholesterolemia, unspecified; N18.30 Chronic kidney disease, stage 3 unspecified; I48.0 Paroxysmal atrial fibrillation; I12.9 Hypertensive chronic kidney disease with stage 1 through stage 4 chronic kidney disease, or unspecified chronic kidney disease; I35.0 Nonrheumatic aortic (valve) stenosis; D64.89 Other specified anemias; Z51.81 Encounter for therapeutic drug level monitoring; Z79.01 Long term (current) use of anticoagulants; Z89.611 Acquired absence of right leg above knee | CPT/HCPCS: 85610; 99211; 99212 ==

== ENCOUNTER 2024-01-26 12:59 | Outpatient (AMB) | payer MEDICARE, OTHER, SELFPAY ==
[2024-01-26 13:11] LABS: Prothrombin Time Whole Bld POC 21.8 sec (11.1-13.5); ~PT, ~INR - Anti Coag Clinic 1.8 (0.9-1.1)
--- NOTE | 2024-01-26 13:18 | MHC.OFFVISCO ---
Intake Intake Visit Reasons: Anticoagulation Allergies lisinopril [LISINOPRIL] Allergy (Unknown, Verified 01/26/24 13:05) HIVES Medication List - Last Reconciled 01/26/24 by Taya Polk RN albuterol sulfate 90 mcg/actuation 2 puffs inhalation Q4H PRN amlodipine 10 mg PO DAILY 90 days atorvastatin 40 mg PO DAILY blood sugar diagnostic (FreeStyle Lite Strips) ONCE A DAY blood-glucose meter (FreeStyle Lite Meter kit) ONCE A DAY cholecalciferol (vitamin D3) 50 mcg PO DAILY dapagliflozin propanediol (Farxiga) 5 mg PO DAILY docusate sodium (Colace) 100 mg PO BEDTIME fluticasone propion-salmeterol 500-50 mcg/dose (Wixela Inhub) 1 inh inhalation BID lancets As directed lancets (FreeStyle Lancets) ONCE A DAY losartan 25 mg PO DAILY [MANUAL WHEELCHAIR As directed] metoprolol tartrate 25 mg PO BID tamsulosin 0.4 mg PO BEDTIME 90 days tramadol 50 mg PO TID PRN 30 days umeclidinium 62.5 mcg/actuation (Incruse Ellipta) 1 inh PO BEDTIME warfarin 2.5 mg See Protocol PO 6XW warfarin 5 mg See Protocol PO QWEEK Nursing Note INR: 1.8 out of therapeutic range of 2-3 Medications and supplements reviewed No changes in health, diet, medications, or supplements, Denies any signs and symptoms of bleeding or bruising or clotting. Bleeding, bruising, clotting discussed Nutritional guidance given to avoid greens today and to have a serving of food from the list that raises the INR. Food list reviewed. Dose: increase today's dose to 5mg (2.5mg) then resume usual dose of 2.5mg X 6 days and 5mg X 1 day (Fri) F/U INR: 2 weeks Patient verbalizes understanding of instructions given Anti-Coag Initial Assessment Social Hx Patient Tobacco Use Status: Former Tobacco user Tobacco use type: Cigarette alcohol intake: never Coding Level of Care Code Est Patient Level 1 Diagnoses Current use of anticoagulant therapy Z79.01 Assessment & Plan Assessment & Plan (1) Current use of anticoagulant therapy: Code(s): Z79.01 - intermediate (current) use of anticoagulants Category: Medical
== END 2024-01-26 13:24 | disposition home or self-care (01) ==
LOC: HO.ACS 12:59
PROVIDERS: PCP Internal Medicine; Visit Provider Internal Medicine
DX: Z79.01 Long term (current) use of anticoagulants (principal)

== ENCOUNTER 2024-02-08 14:08 | Outpatient (AMB) | payer MEDICARE, OTHER, SELFPAY ==
--- NOTE | 2024-02-08 14:46 | A.OFFPC_ITS ---
Vital Signs 02/08/24 14:47 Height 6 ft Weight 172 lb BMI 23.3 BP 142/54 H Blood Pressure Location Lt brachial Position Sitting Pulse 59 Pulse Source Pulse Oximeter Pulse Oximetry (%) 97 Oxygen Delivery Method Room Air Intake Visit Reasons: DM,HTN Allergies lisinopril [LISINOPRIL] Allergy (Unknown, Verified 02/08/24 14:47) HIVES Tobacco use date assessed: 04/09/23 Fall risk assessment: No Falls in past year Last assessed Fall Risk: 02/08/24 Dental Screening Dental Screen Date: 04/09/23 HPI DM,HTN HPI Details 88-year-old male with a history of right [id number] amputation, aortic stenosis diabetes mellitus coronary artery disease hypertension hypercholesterolemia COPD atrial fibrillation chronic kidney disease coming in for follow-up. Last seen in 11/03/2023. Review of the notes was seen by Nephrology January 25 diagnosis of chronic kidney disease stage IIIB discontinue hydrochlorothiazide keep losartan at a low dose of 25 mg once a day avoiding hypotension. Advised Farxiga continue 5 mg once a day. Patient also follows up with urology on tamsulosin. Cardiology last seen in October 2023 continuing to follow-up with aortic stenosis for the atrial fibrillation on metoprolol on Coumadin. Echocardiogram October 2023The left ventricular systolic function is low normal. The visually estimated ejection fraction is between 50-55%. - The basal inferior segment is akinetic . - The left atrium is moderately dilated. - Overall, possibly severe, paradoxical, low-flow, low gradient aortic stenosis, but stroke volume index is above the threshold. fall recently but was careless- landed on the hip. 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 Mother No problems noted. Social History Household Members: Spouse Housing: House Do you presently have visiting nurse or other home services: No Alcohol intake: never Patient Tobacco Use Status: Former Tobacco user Tobacco use type: Cigarette Years Smoked: quit 1987 e-Cigarette/Vaping Use: Never Used Second Hand Smoke Exposure: No service: No Current occupational status: retired Cognitive needs: Yes (cane/walker/wheelchair) Hearing needs: Yes Vision needs: Yes Questionnaire Thrive Questionnaire Date Thrive assessed: 07/13/23 AUDIT C Alcohol Use Questionnaire (AUDIT-C) 1. How often do you have a drink containing alcohol?: Never 2. How many drinks containing alcohol do you have on a typical day when you are drinking?: 1 or 2 (0) 3. How often do you have six or more drinks on one occasion?: Never Total Score: 0 Score Reviewed/Action Taken: No ANDREY-7 AMB Questionnaire ANDREY-7 Date ANDREY - 7 assessed: 07/22/23 Source: Developed by Drs. Omega Negron, Shannan Couch, Armond Ceballos and colleagues, with an educational klaudia from [employer]. Physical exam (Primary Care) Vital Signs: Last Vital Signs Pulse 59 02/08/24 14:47 BP 142/54 H 02/08/24 14:47 Pulse Ox 97 02/08/24 14:47 Oxygen Delivery Method Room Air 02/08/24 14:47 BMI result Body Mass Index 23.3 Tobacco/Smoking Status: Tobacco use Status Tobacco use date assessed 04/09/23 02/08/24 14:47 Patient Tobacco Use Status Former Tobacco user 02/08/24 14:47 Tobacco use type Cigarette 02/08/24 14:47 e-Cigarette/Vaping Use Never Used 02/08/24 14:47 Thrive Assessment: Date of Thrive Assessment Date Thrive assessed 07/13/23 02/08/24 14:47 Const General: alert; No acute distress Eyes Conjunctivae: conjunctivae normal Resp Auscultation: clear to auscultation bilaterally Cardio Rate: regular rate Rhythm: regular rhythm GI Inspection: Yes normal to inspection Extrem Other: R below the knee amputations General: Yes edema Results AMB Hemoglobin A1c AMB Hemoglobin A1c 6.5 % Last Edit by PATRICK Morley on 02/08/24 15:01 Results Reviewed Results Reviewed: Laboratory Last Values Hgb A1c (Clinic) 6.5 % (4.0-6.0) H 02/08/24 14:48 Coding Level of Care Code Est Pt Level 4 (24801) Complex EM visit Add On G2211 Diagnoses Type 2 diabetes mellitus with hyperglycemia, without long-term current use of insulin E11.65 Diabetes mellitus shelter insulin use: without shelter use Coronary artery disease involving [place] coronary artery of [place] heart without angina pectoris I25.10 Coronary Disease-Associated Artery/Lesion type: [place] artery [place] vs. transplanted heart: [place] heart Associated angina: without angina Essential hypertension I10 Hypertension type: essential hypertension Hypercholesterolemia E78.00 Pulmonary emphysema, unspecified emphysema type J43.9 COPD type: emphysema Emphysema type: unspecified Paroxysmal atrial fibrillation I48.0 Nonrheumatic aortic valve stenosis I35.0 Cardiac valve disease etiology: nonrheumatic Stage 3 chronic kidney disease, unspecified whether stage 3a or 3b CKD N18.30 Chronic kidney disease stage: stage 3 (moderate) Chronic kidney disease stage 3 subtype: unspecified whether 3a or 3b Assessment & Plan Assessment & Plan (1) Type 2 diabetes mellitus with hyperglycemia: Code(s): E11.65 - Type 2 diabetes mellitus with hyperglycemia Category: Medical 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 Hemoglobin A1c goal of less than 7.0 on Farxiga 5 mg once a day (2) Coronary artery disease: Comment: An STEMI December [address] stent [address] Chaudhari Code(s): I25.10 - Atherosclerotic heart disease of [place] coronary artery without angina pectoris Category: Medical Qualifiers: Coronary Disease-Associated Artery/Lesion type: [place] artery [place] vs. transplanted heart: [place] heart Associated angina: without angina Qualified Code(s): I25.10 - Atherosclerotic heart disease of [place] coronary artery without angina pectoris Plan: Control the cholesterol, weight, blood pressure, diabetes continue with anticoagulation with Coumadin (3) Hypertension: Code(s): I10 - Essential (primary) hypertension Category: Medical Qualifiers: Hypertension type: essential hypertension Qualified Code(s): I10 - Essential (primary) hypertension Plan: Continue with blood pressure medication. Decrease salt intake and exercise on losartan 25 mg once a day metoprolol 25 mg twice a day discontinued hydrochlorothiazide and amlodipine 10 mg once a day (4) Hypercholesterolemia: Code(s): E78.00 - Pure hypercholesterolemia, unspecified Category: Medical Plan: Avoid fried foods, chicken skin, eggs, butter margarine, pastries and meat. Be it pork or beef they have a lot of cholesterol on atorvastatin 40 mg once a day LDL below 70 is requested (5) COPD (chronic obstructive pulmonary disease): Code(s): J44.9 - Chronic obstructive pulmonary disease, unspecified Category: Medical Qualifiers: COPD type: emphysema Emphysema type: unspecified Qualified Code(s): J43.9 - Emphysema, unspecified Plan: Continue with the inhaler albuterol and Wixela (6) Paroxysmal atrial fibrillation: Comment: December 2012 Code(s): I48.0 - Paroxysmal atrial fibrillation Category: Medical Plan: Continue with anticoagulation on metoprolol (7) Aortic stenosis: Comment: April 2021 moderate 1.2 cm squared March 2022he left ventricular systolic function is low normal. The calculated ejection fraction is 54% by biplane method. - The basal inferior and basal inferolateral segments are akinetic. - There is moderate to severe aortic valve stenosis. 1.0 cm2 October 2022 1.11 cm squared Code(s): I35.0 - Nonrheumatic aortic (valve) stenosis Category: Medical Qualifiers: Cardiac valve disease etiology: nonrheumatic Qualified Code(s): I35.0 - Nonrheumatic aortic (valve) stenosis Plan: Continuing to monitor as per Cardiology (8) Chronic kidney disease: Comment: Stage IIIB Code(s): N18.9 - Chronic kidney disease, unspecified Category: Medical Qualifiers: Chronic kidney disease stage: stage 3 (moderate) Chronic kidney disease stage 3 subtype: unspecified whether 3a or 3b Qualified Code(s): N18.30 - Chronic kidney disease, stage 3 unspecified Plan: Keep well hydrated avoid NSAIDs continue with losartan continue to monitor Orders: Orders AMB Hemoglobin A1c Today E11.65 - Type 2 diabetes mellitus with hyperglycemia Medications: Changed From metoprolol tartrate 25 mg PO BID 180 tabs 2RF I10 - Essential (primary) hypertension To metoprolol tartrate 50 mg PO BID 180 tabs 2RF I10 - Essential (primary) hypertension Refilled amlodipine 10 mg PO DAILY 90 days 90 tabs 2RF N18.30 - Chronic kidney disease, stage 3 unspecified atorvastatin 40 mg PO DAILY 90 tabs 3RF N18.30 - Chronic kidney disease, stage 3 unspecified
[2024-02-08 14:47] VITALS: BP 142/54; PULSE 59; O2SAT 97; BMI 23.3
== END 2024-02-08 15:35 | disposition home or self-care (01) ==
PROVIDERS: PCP Internal Medicine; Visit Provider Internal Medicine
DX: E11.65 Type 2 diabetes mellitus with hyperglycemia (principal); J43.9 Emphysema, unspecified; I48.0 Paroxysmal atrial fibrillation; N18.30 Chronic kidney disease, stage 3 unspecified; I25.10 Atherosclerotic heart disease of native coronary artery without angina pectoris; I10 Essential (primary) hypertension; E78.00 Pure hypercholesterolemia, unspecified; I35.0 Nonrheumatic aortic (valve) stenosis

== ENCOUNTER → 2024-02-08 14:08 | Outpatient (BNVA) | payer MEDICARE, OTHER, SELFPAY | PROVIDERS: PCP Internal Medicine; Visit Provider Internal Medicine | DX: E11.65 Type 2 diabetes mellitus with hyperglycemia (principal); E78.00 Pure hypercholesterolemia, unspecified; J43.9 Emphysema, unspecified; I48.0 Paroxysmal atrial fibrillation; I35.0 Nonrheumatic aortic (valve) stenosis; I12.9 Hypertensive chronic kidney disease with stage 1 through stage 4 chronic kidney disease, or unspecified chronic kidney disease; E11.22 Type 2 diabetes mellitus with diabetic chronic kidney disease; N18.30 Chronic kidney disease, stage 3 unspecified; Z71.3 Dietary counseling and surveillance | CPT/HCPCS: 83036; 99212 ==

== ENCOUNTER 2024-02-09 10:41 | Outpatient (AMB) | payer MEDICARE, OTHER, SELFPAY ==
[2024-02-09 10:51] LABS: Prothrombin Time Whole Bld POC 26.8 sec (11.1-13.5); ~PT, ~INR - Anti Coag Clinic 2.2 (0.9-1.1)
--- NOTE | 2024-02-09 10:54 | MHC.OFFVISCO ---
Intake Intake Visit Reasons: Anticoagulation Allergies lisinopril [LISINOPRIL] Allergy (Unknown, Verified 02/09/24 10:43) HIVES Medication List - Last Reconciled 02/09/24 by Mine Ruby RN albuterol sulfate 90 mcg/actuation 2 puffs inhalation Q4H PRN amlodipine 10 mg PO DAILY 90 days atorvastatin 40 mg PO DAILY blood sugar diagnostic (FreeStyle Lite Strips) ONCE A DAY blood-glucose meter (FreeStyle Lite Meter kit) ONCE A DAY cholecalciferol (vitamin D3) 50 mcg PO DAILY dapagliflozin propanediol (Farxiga) 5 mg PO DAILY docusate sodium (Colace) 100 mg PO BEDTIME fluticasone propion-salmeterol 500-50 mcg/dose (Wixela Inhub) 1 inh inhalation BID lancets As directed lancets (FreeStyle Lancets) ONCE A DAY losartan 25 mg PO DAILY [MANUAL WHEELCHAIR As directed] metoprolol tartrate 50 mg PO BID tamsulosin 0.4 mg PO BEDTIME 90 days tramadol 50 mg PO TID PRN 30 days umeclidinium 62.5 mcg/actuation (Incruse Ellipta) 1 inh PO BEDTIME warfarin 2.5 mg See Protocol PO 6XW warfarin 5 mg See Protocol PO QWEEK Nursing Note INR: 2.2 in therapeutic range Medications and supplements reviewed- MISSED A DOSE OF WARFARIN LAST NIGHT No changes in health, diet, medications, or supplements, Denies any signs and symptoms of bleeding or bruising or clotting. Bleeding, bruising, clotting discussed Nutritional guidance given - REVIEW FOOD LIST WEEKLY - ESPECIALLY DURING THE HOLIDAYS - ORANGE AND RED VEGETABLES RAISE THE INR Dose: KEEP SAME DOSE 5MG X 1 DAY/ 2.5MG X 6 DAYS F/U INR: 3 WEEKS Patient verbalizes understanding of instructions given Anti-Coag Initial Assessment Social Hx Patient Tobacco Use Status: Former Tobacco user Tobacco use type: Cigarette alcohol intake: never Questionnaires HAS-BLED Does the patient had uncontrolled Hypertension?: No Does the patient have renal disease?: Yes Does the patient have liver disease?: No Does the patient have a history of stroke?: No Has the patient had major bleeding or predisposition to bleeding?: No Does the patient have labile INRs?: No Is the patient over 65 years of age?: Yes Is the patient on medications that gives them a predisposition to bleeding?: Yes Does the patient use alcohol?: No HAS-BLED Score: 3 CHADSVASC Age: 75 or over Gender: Male Does the patient have a history of CHF?: No Does the patient have a history of Hypertension?: Yes Does the patient have a history of Stroke/TIA/Thromboembolism?: Yes (SEVERAL TIAS ) Does the patient have a history of Vascular Disease (prior [place], PAD or aortic plaque)?: Yes Does the patient have a history of Diabetes?: Yes CHADS VACS Score: 7 Jose Prediction Score Rsk VTE Active Cancer: No Previous VTE, excluding superficial vein thrombosis: No Reduced mobility: Yes Already known Thrombophilic Condition: No With-in last month Trauma and/or Surgery: No Elderly 70 year or older: Yes Heart and/or Respiratory Failure: No Acute Myocardial infarction and/or Ischemic Stroke: No Acute Infection and/or Rheumatologic Disorder: No Obesity (BMI 30 or greater): No Ongoing Hormonal Treatment: No Score: 4 Jose Score less than 4; Low Risk of VTE Jose Score 4 or greater; High Risk of VTE Coding Level of Care Code Est Patient Level 1 Diagnoses Current use of anticoagulant therapy Z79.01 Assessment & Plan Assessment & Plan (1) Current use of anticoagulant therapy: Code(s): Z79.01 - FPC (current) use of anticoagulants Category: Medical
== END 2024-02-09 11:00 | disposition home or self-care (01) ==
LOC: HO.ACS 10:41
PROVIDERS: PCP Internal Medicine; Visit Provider Internal Medicine
DX: Z79.01 Long term (current) use of anticoagulants (principal)

== ENCOUNTER → 2024-02-09 10:41 | Outpatient (BNVA) | payer MEDICARE, OTHER, SELFPAY | PROVIDERS: PCP Internal Medicine; Visit Provider Internal Medicine | DX: I48.0 Paroxysmal atrial fibrillation (principal); Z79.01 Long term (current) use of anticoagulants; Z51.81 Encounter for therapeutic drug level monitoring | CPT/HCPCS: 85610; 99211 ==

== ENCOUNTER 2024-03-01 10:23 | Outpatient (AMB) | payer MEDICARE, OTHER, SELFPAY ==
--- OUTSIDE RECORDS SUMMARY | 2024-03-01 10:25 | XMS_ITS ---
[facility] Organization [facility] Address [address] [place] [address] Care Team Providers Care Chalk Extruding Machine Operator Name Role Phone Flakita Stewart Primary Care Provider Unavailabl e Black, Stephanie Unavailable [phone] Allergies Allergen (clinical drug ingredient) Drug/Non Drug Allergy documented on EMR Reaction Allergy Type Onset Date Status lisinopril Lisinopril Unknown Drug Allergy Activ e REASON FOR VISIT At Risk Footcare Medications Medication SIG (Take, Route, Frequency, Duration) Notes Start Date End Date Status glipiZIDE 7.5MG Orally Not- Taking Metoprolol Tartrate 50 MG 1 tablet with food Orally Twice a day for 30 day(s) Active Losartan Potassium 50 MG 1 tablet Orally Once a day for 30 day(s) Active Warfarin Sodium 5 MG 1 tablet Orally Onc e a day for 30 day(s) Active hydroCHLOROthiazide 12.5 MG 1 tablet in the morning Orally Once a day for 30 day(s) Not-Taking Atorvastatin Calcium 40 MG 1 tablet Oral ly Once a day for 30 day(s) Active amLODIPine Besylate 10 MG 1 tablet Orall y Once a day for 30 day(s) Active Incruse Ellipta 62.5 MCG/INH 1 puff Inha lation Once a day Active Spiriva HandiHaler 18 MCG 1 capsule by inhaling the contents of the capsule using the HandiHaler device Inhalation Once a day Not-Taking Doxycycline Monohydrate 100 MG 1 capsule Orally Twice a day for 7 days 03/11/2023 Not-Taking Vitamin D3 Active Cephalexin 500 MG 1 capsule Orally twice a day for 10 days 03/05/2023 Not-Taking Ammonium Lactate 12 % 1 application to affected area Externally Twice a day to dry areas of skin on feet for 30 days 07/28/2022 Not-Taking Albuterol Active Advair Diskus 500-50 MCG/DOSE 1 puff Inhalation Twice a day Active Terazosin HCl 1 MG 1 capsule at bedtime Orally Once a day for 30 day(s) Active metFORMIN HCl 500 MG 1 tablet with a brandin l Orally Once a day for 30 day(s) Active Social History Tobacco Use: Social History Observation Description Date Details (start date - stop date) Former Smoker NA - NA Tobacco Use/Smoking Question Answer Notes Are you a: former smoker Additional Findings: Tobacco Non-User Current no n-smoker Tobacco use other than smoking: Question Answer Notes Are you an other tobacco user? No Vital Signs Height 6 ft 0 in in 02/15/2024 Weight 172 lbs 02/15/2024 BMI 23.32 kg/m2 02/15/2024 Blood pressure systolic 140 mm Hg 02/15/20 24 Blood pressure diastolic 58 mm Hg 024 Procedures Procedure Date Ordered Date Performed Result Body Sit e 38947-DABQHQF NAIL, 1-5 02/15/2024 N/A 35317-USBD SKIN LESIONS, 2 TO 4 02/15/2024 N/A Encounters Encounter Location Date Provider Diagnosis [facility] [address] [address] 02/15/2024 Stephanie Bedoya Tinea unguium B35.1 and Type 2 diabetes mellitus with diabetic polyneuropathy E11.42 Assessments Encounter Date Diagnosis (ICD Code) Assessment Notes Treatment Notes Treatment Clinical Notes Section Notes 02/15/2024 Tinea unguium (ICD-10 - B35.1) 02/15/2024 Type 2 diabetes mellitus with diabetic polyneuropathy (ICD-10 - E11.42) Plan Of Treatment Pending Test Test Name Order Date 04280-PJSIHON NAIL, 1-5 02/15/2024 38433-XMNM SKIN LESIONS, 2 TO 4 02/15/20 24 Next Appt Details Follow Up: prn, Reason: Provider Name:Stephanie Bedoya , 08/15/2024 11:00:00 AM, [address] [place] [address], [phone], Procedure Notes * Category Sub-Category Detail Notes Keratoma Treatment Parring or Cutting o f Benign Hyperkeratotic Lesion(s) (-56) 2-4 Lesions - The Benign hyperkeratotic lesions, (3) in total, locations as stated and described in exam, were pared, and/or cut utilizing a sterile 15 blade, tissue nippers, and/or power dremel instrumentation - 22700 Debride Nails 1-5 Procedure: Performance of this nail treatment by a nonprofessional would put this patients foot and overall health at risk. Therefore, debridement to affected nail(s), as described in exam, was performed extensively to reduce/remove overall nail length, girth, thickness, subungual debris, and necrotic tissue, by manual and/or electrical means through the use of a nail nipper and/or dremel-type color grinder, to a more viable healthy nail plate or bed tissue 5 nails or less in number. Silver nitrate was used for any petechial bleeding as necessary. Definitive antifungal treatment options, both pharmaceutical and surgical, have been reviewed and discussed with the patient. The patient solely prefers the use of intermittent/as needed professional debridement services for their nail condition and understands that additional periodic treatments may be required as necessary to maintain effective symptomatic relief - 25898 Progress Notes * Florentino BEAN RDOB: [birth year] (88 yo M)Acc No.[id number]:02/15/2024 Progress Note Patient:?Florentino BEAN Provider:?Stephanie Bedoya DPM :1935???Age:88 Y???Sex:Male Darryl e:02/15/2024 Address:[address] [place], [place] [id number] Pcp:Flakita Stewart Subjective: * Chief Complaints: * ???At Risk Footcare * HPI: ???At Risk footcare:?Pt States Last PCP Visit:?Date?02/05/2024 ? [facility] right - 2003. * ROS:?General/Constitutional:?Nausea?denies.?Vomiting?denies.?Hunger Thirst?denies.?Loss appetite?denies.?Chills?denies.?Fatigue?denies.?Fever?denies.?Night Sweats?denies.?Unexplained weight loss?denies.?Unexplained weight gain?denies.?HEENTM:?Dentures?admits.?Dizziness?denies.?Glasses/contacts?admits.?Retinopathy?de nies.?Blurred/double vision?denies.?TMJ?denies.?Discharge/drainage?denies.?Implants?denies.?Sore throat?denies.?Dental implants?denies.?Hard of hearing ?admits.?Difficulty chewing/swallowing/speaking?denies.?Nose bleeds?denies.?Sore mouth?denies.?Respiratory:?On Oxygen?denies.?Pneumonia/pleurisy?denies.?Bronchitis?denies.?Emphysema?admits.?C oughing?admits.?Cough blood?denies.?Shortness of breath?admits.?Wheezing?admits.?Cardiovascular:?Pacemaker?denies.?MVP?denies.?WPW?denies.?CHF?denies.?Heart attack?denies.?Septal defect?denies.?Rapid beat?denies.?Chest pain ?denies.?Atrial Fib.?admits.?Murmur/Palpitations?denies.?Gastrointestinal:?Hemorrhoids?denies.?Stomach/Abdominal pain?denies.?Dark blood stool?denies.?Irritable bowel ?denies.?Constipation?denies.?Diarrhea?denies.?Hematology:?Swelling?denies.?Clots?denies.?Varicose Veins?denies.?Bruising?admits.?Bleeding problem?denies.?Genitourinary:?Blood urine?denies.?Frequent/Painfu/urination/bladder control?denies.?Kidney stones?denies.?Infection (UTI)?denies.?Nephropathy?denies.?sex trans dis (STD)?denies.?Prostate?denies.?Musculoskeletal:?Hammertoes?denies.?Bunions?denies.?Back Pain?denies.?Muscle Cramps/ Resting?denies.?Muscle cramps / walking?denies.?Generalized aches and pains?denies.?Weakness?denies.?Integ.:?House?denies.?Scars?admits.?Corns/calluses?denies.?Ingrown nails?admits.?Painful nails?denies.?Open Sores?admits.?Rashes?denies.?Neurologic:?Difficulty sleeping?denies.?Brain disorder?denies.?Numbness?denies.?Balance trouble?denies.?Confusion?denies.?Fainting/blackouts?denies.?Tingling?denies.?Tr emors?denies.? * Medical History:? 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 * Social History:?Tobacco Use:?Tobacco Use/Smoking?Are you a:?former smoker ?Additional Findings: Tobacco Non-User?Current non-smoker ?Tobacco use other than smoking?Are you an other tobacco user??No * Medications:?TakingIncruse E llipta 62.5 MCG/INH Aerosol Powder Breath Activated 1 puff Inhalation Once a day amLODIPine Besylate 10 MG Tablet 1 tablet Orally Once a day Atorvastatin Calcium 40 MG Tablet 1 tablet Orally Once a day Warfarin Sodium 5 MG Tablet 1 tablet Orally Once a day Losartan Potassium 50 MG Tablet 1 tablet Orally Once a day Metoprolol Tartrate 50 MG Tablet 1 tablet with food Orally Twice a day metFORMIN HCl 500 MG Tablet 1 tablet with a meal Orally Once a day Terazosin HCl 1 MG Capsule 1 capsule at bedtime Orally Once a day Vitamin D3 Advair Diskus 500-50 MCG/DOSE Aerosol Powder Breath Activated 1 puff Inhalation Twice a day Albuterol Taking Incruse Ellipta 62.5 MCG/INH Aerosol Powder Breath Activated 1 puff Inhalation Once a day Taking amLODIPine Besylate 10 MG Tablet 1 tablet Orally Once a day Taking Atorvastatin Calcium 40 MG Tablet 1 tablet Orally Once a day Taking Warfarin Sodium 5 MG Tablet 1 tablet Orally Once a day Taking Losartan Potassium 50 MG Tablet 1 tablet Orally Once a day Taking Metoprolol Tartrate 50 MG Tablet 1 tablet with food Orally Twice a day Taking metFORMIN HCl 500 MG Tablet 1 tablet with a meal Orally Once a day Taking Terazosin HCl 1 MG Capsule 1 capsule at bedtime Orally Once a day Taking Vitamin D3 Taking Advair Diskus 500-50 MCG/DOSE Aerosol Powder Breath Activated 1 puff Inhalation Twice a day Taking Albuterol Not-Taking/PRNglipiZIDE 7.5MG Orally hydroCHLOROthiazide 12.5 MG Tablet 1 tablet in the morning Orally Once a day Ammonium Lactate 12 % Cream 1 application to affected area Externally Twice a day to dry areas of skin on feet Cephalexin 500 MG Capsule 1 capsule Orally twice a day Doxycycline Monohydrate 100 MG Capsule 1 capsule Orally Twice a day Spiriva HandiHaler 18 MCG Capsule 1 capsule by inhaling the contents of the capsule using the HandiHaler device Inhalation Once a day Medication List reviewed and reconciled with the patientNot-Taking/PRN glipiZIDE 7.5MG Orally Not-Taking/PRN hydroCHLOROthiazide 12.5 MG Tablet 1 tablet in the morning Orally Once a day Not-Taking/PRN Ammonium Lactate 12 % Cream 1 application to affected area Externally Twice a day to dry areas of skin on feet Not-Taking/PRN Cephalexin 500 MG Capsule 1 capsule Orally twice a day Not-Taking/PRN Doxycycline Monohydrate 100 MG Capsule 1 capsule Orally Twice a day Not-Taking/PRN Spiriva HandiHaler 18 MCG Capsule 1 capsule by inhaling the contents of the capsule using the HandiHaler device Inhalation Once a day Medication List reviewed and reconciled with the patient * Allergies:?Lisinoprilyes[All ergies Verified] Objective: * Vitals:?Ht: 6 ft 0 in, Wt: 1 72, BMI: 23.32, Shoe size: 10-10.5, BP: 140/58 mm Hg, BS: 89, Wt-k.02 kg. * ???Past Orders: ???Lab:HEMOGLOBIN A1C (GLYCO HEMOGLOBIN) (Order Date - 02/09/2024) (Collection Date & Time - 02/09/2024 03:27 PM) ? Value Reference Range ?TOTAL HEMOGLOBIN (HGBA1C) 6.5 * Examination: ???Ophthalmology Referral: ?DIABETES EYE EXAM?Dermatologic: ?SKIN FINDINGS:?Skin exam reveals keratotic lesion(s) located at, Medial plantar, IPJ, TA, SUB MTH (s), 1, Plantar Heel(s), , Left .?Neurological: ?SENSORY:?Neurological exam demonstrates, reduced sharp/dull pin prick discrimination , reduced vibration sensation, reduced light touch sensation, , 5.07 monofilament test performed at plantar aspects of 5 varied sites per foot shows sensation, absent, at Forefoot left.?Nails: ?NAILS are:?elongated,overgrown,dystrophic,greater than 3mm thick,discolored and friable with crumbly malodorous subungual debris, with dull to no pain on palpation due to neuropathy, 1-5 Left foot.?Vascular: ?AMPUTATION, NON-TRAUMATIC(A):?AKA right.?DP PULSES(B):?1/4, LEFT.?PT PULSES(B):? 0/4, LEFT.?CAPILLARY FILL TIME:? immediate, all digits, left.?TEMPERTURE GRADIENT(C):?normal, warm to cool, proximal to distal, left.?EDEMA(C):? 2/4, pitting, Left, Leg(s), Ankle(s).? Assessment: * Assessment: 1.?Tinea unguium - B35.1???2 .?Type 2 diabetes mellitus with diabetic polyneuropathy - E11.42 (Primary)??? Plan: * Treatment: 2.?Tinea unguium?Procedure: 19964-ASGKAEX NAIL, 1-5 * Procedures:?Debride Nails 1-5:?Procedure:?Performance of this nail treatment by a nonprofessional would put this patients foot and overall health at risk. Therefore, debridement to affected nail(s), as described in exam, was performed extensively to reduce/remove overall nail length, girth, thickness, subungual debris, and necrotic tissue, by manual and/or electrical means through the use of a nail nipper and/or dremel-type color grinder, to a more viable healthy nail plate or bed tissue 5 nails or less in number. Silver nitrate was used for any petechial bleeding as necessary. Definitive antifungal treatment options, both pharmaceutical and surgical, have been reviewed and discussed with the patient. The patient solely prefers the use of intermittent/as needed professional debridement services for their nail condition and understands that additional periodic treatments may be required as necessary to maintain effective symptomatic relief - 49757.?Keratoma Treatment:?Parring or Cutting of Benign Hyperkeratotic Lesion(s)?(-56) 2-4 Lesions - The Benign hyperkeratotic lesions, (3) in total, locations as stated and described in exam, were pared, and/or cut utilizing a sterile 15 blade, tissue nippers, and/or power dremel instrumentation - 05294.? * Procedure Codes:?94033 DEBRI DE NAIL, 1-5, Modifiers: Q7 48478 TRIM SKIN LESIONS, 2 TO 4, Modifiers: Q7 * Follow Up:?prn * Images: * Sign off status: Completed true * Provider:?Stephanie Bedoya DPM Date:?2023 Generated for Jessie chapa/Abilio/Gin on:?03/01/2024 10:25 AM EST History and Physical Notes * HPI (History of Present Illness) Category Sub-Category Detail Notes Category Not es At Risk footcare Pt States Last PCP Visit: Date: 4 AKA right - 2003 Examination Category Sub-Category Detail Notes Category Not es Neurological SENSORY: Neurological exa m demonstrates, reduced sharp/dull pin prick discrimination , reduced vibration sensation, reduced light touch sensation, , 5.07 monofilament test performed at plantar aspects of 5 varied sites per foot shows sensation, absent, at Forefoot left Dermatologic SKIN FINDINGS: Skin exam reveal s keratotic lesion(s) located at, Medial plantar, IPJ, TA, SUB MTH (s), 1, Plantar Heel(s), , Left Ophthalmology Referral DIABETES EYE EXAM Diabeti c Retinopathy Screening:: Yes Findings of Diabetic Eye Exam:: no retin opathy Vascular DP PULSES(B): 1/4, LEFT PT PULSES(B): 0/4, LEFT CAPILLARY FILL TIME: immediate, all digi ts, left TEMPERTURE GRADIENT(C): normal, warm to cool, proximal to distal, left EDEMA(C): 2/4, pitting, Left, Leg(s), Ankle(s) AMPUTATION, NON-TRAUMATIC(A): AKA right Nails NAILS are: elongated,overgr own,dystrophic,greater than 3mm thick,discolored and friable with crumbly malodorous subungual debris, with dull to no pain on palpation due to neuropathy, 1-5 Left foot
--- OUTSIDE RECORDS SUMMARY | 2024-03-01 10:26 | XMS_ITS ---
Author Organization [facility] Address [address] [place] [address] Care Team Providers Care Remediation Project Engineer Name Role Phone Flakita Stewart Primary Care Provider Stephanie Pagan [phone] John Encounters Encounter Location Date Provider Diagnosis [address] [address] 12/14/2023 Stephanie Bedoya Plan Of Treatment Next Appt Details Provider Name:Stephanie Miller Bedoya , 08/15/2024 11:00:00 AM, [address] [place] [address], [phone], Progress Notes * Florentino BEAN RDOB: (88 yo M)Acc No.[id number]:12/14/2023 Progress Note Patient:?Florentino BEAN Provider:?Stephanie Bedoya DPM :1935???Age:88 Y???Sex:Male Darryl e:12/14/2023 Address:[address] [place] [address] Pcp:Flakita Stewart Subjective: * Chief Complaints: * ???1. Dr John. * Medical History:? Objective: * Vitals:? Assessment: Plan: * Treatment: * Images: * The named appointment provid er may or may not be the originator of this progress note, and it is not deemed complete until electronically signed by the appointment provider. Sign off status: Pending * Provider:Hector Bedoya DPM Date:?2023 Generated for Jessie chapa/Abilio/Gin on:?03/01/2024 10:25 AM EST
--- OUTSIDE RECORDS SUMMARY | 2024-03-01 10:26 | XMS_ITS ---
Author Organization [facility] Address [address] [place] [address] Care Team Providers Care Supervisor [employer] Name Role Phone Flakita Stewart Primary Care Provider Unavailabl e Black, Stephanie Unavailable [phone] Allergies Allergen (clinical drug ingredient) Drug/Non Drug Allergy documented on EMR Reaction Allergy Type Onset Date Status lisinopril Lisinopril Unknown Drug Allergy Activ e REASON FOR VISIT At Risk Footcare Medications Medication SIG (Take, Route, Frequency, Duration) Notes Start Date End Date Status Albuterol Active Cephalexin 500 MG 1 capsule Orally twice a day for 10 days 03/05/2023 Not-Taking Ammonium Lactate 12 % 1 application to affected area Externally Twice a day to dry areas of skin on feet for 30 days 07/28/2022 Not-Taking Doxycycline Monohydrate 100 MG 1 capsule Orally Twice a day for 7 days 03/11/2023 Not-Taking Spiriva HandiHaler 18 MCG 1 capsule by inhaling the contents of the capsule using the HandiHaler device Inhalation Once a day Not-Taking Vitamin D3 Active Terazosin HCl 1 MG 1 capsule at bedtime Orally Once a day for 30 day(s) Active Advair Diskus 500-50 MCG/DOSE 1 puff Inhalation Twice a day Active metFORMIN HCl 500 MG 1 tablet with a brandin l Orally Once a day for 30 day(s) Active Metoprolol Tartrate 50 MG 1 tablet with food Orally Twice a day for 30 day(s) Active glipiZIDE 7.5MG Orally Acti ve Atorvastatin Calcium 40 MG 1 tablet Oral ly Once a day for 30 day(s) Active Warfarin Sodium 5 MG 1 tablet Orally Onc e a day for 30 day(s) Active hydroCHLOROthiazide 12.5 MG 1 tablet in the morning Orally Once a day for 30 day(s) Active Losartan Potassium 50 MG 1 tablet Orally Once a day for 30 day(s) Active amLODIPine Besylate 10 MG 1 tablet Orall y Once a day for 30 day(s) Active Incruse Ellipta 62.5 MCG/INH 1 puff Inha lation Once a day Active Social History Tobacco Use: Social History Observation Description Date Details (start date - stop date) Former Smoker NA - NA Tobacco Use/Smoking Question Answer Notes Are you a: former smoker Additional Findings: Tobacco Non-User Current no n-smoker Alcohol Screen Question Answer Notes Did you have a drink containing alcohol in the p ast year? No Points 0 Interpretation Negative Tobacco use other than smoking: Question Answer Notes Are you an other tobacco user? No Vital Signs Height 6 ft 0 in in 09/03/2023 Weight 180 lbs 09/03/2023 BMI 24.41 kg/m2 09/03/2023 Blood pressure systolic 120 mm Hg 09/03/19 24 Blood pressure diastolic 60 mm Hg 024 Procedures Procedure Date Ordered Date Performed Result Body Sit e 77759-ZUUJBKE NAIL, 1-5 09/03/2023 N/A 01778-PVKQ SKIN LESIONS, 2 TO 4 09/03/2023 N/A Encounters Encounter Location Date Provider Diagnosis [facility] [address] [address] 09/03/2023 Stephanie Bedoya Tinea unguium B35.1 and Type 2 diabetes mellitus with diabetic polyneuropathy E11.42 Assessments Encounter Date Diagnosis (ICD Code) Assessment Notes Treatment Notes Treatment Clinical Notes Section Notes 09/03/2023 Tinea unguium (ICD-10 - B35.1) 09/03/2023 Type 2 diabetes mellitus with diabetic polyneuropathy (ICD-10 - E11.42) Plan Of Treatment Pending Test Test Name Order Date 61250-EUCZQQY NAIL, 1-5 09/03/2023 13352-PUKA SKIN LESIONS, 2 TO 4 09/03/19 24 Next Appt Details Follow Up: prn, Reason: Provider Name:Stephanie Miller Aureliano , 08/15/2024 11:00:00 AM, [address] [place] [address] [place], [phone], Procedure Notes * Category Sub-Category Detail Notes Keratoma Treatment Parring or Cutting o f Benign Hyperkeratotic Lesion(s) 75395 (2-4 Lesions) - The Benign hyperkeratotic lesions, as described above were pared, and/or cut utilizing a sterile #15 blade, tissue nippers, and/or dremel Debride Nails 1-5 Procedure: Nail debrideme nt performed extensively to reduce/remove overall nail length and girth, subungual debris, and necrotic tissue, by manual and electrical means by use of a nail nipper and/or dremel, to more viable healthy nail plate or bed tissue 1-5. Silver nitrate used for any petechial bleeding as necessary. Patient chooses, no pharmaceutical tx (61916) Progress Notes * Florentino BEAN RDOB: 8 (87 yo M)Acc No.[id number]:09/03/2023 Progress Note Patient:?Florentino Bean R Provider:?Stephanie Bedoya DPM :1935???Age:87 Y???Sex:Male Darryl e:09/03/2023 Address:[address] [place], [place] [id number] Pcp:Flakita Stewart Subjective: * Chief Complaints: * ???At Risk Footcare * HPI: ???At Risk footcare:?Pt States Last PCP Visit:?Date?08/20/2023 ? [facility] right - 2003. * Medical History:? * Surgical History:?right abov e the knee amputation 2004parotidectomy 05/30/2015 * Hospitalization/Major Diagno stic Procedure:?[facility] - K[facility] 2004[facility]- Covid-19 06/06 * Family History:?Mother: dece ased.?Father: .?Spouse: diagnosed with Unspecified essential hypertension.? * Social History:?Tobacco Use:?Tobacco Use/Smoking?Are you a:?former smoker ?Additional Findings: Tobacco Non-User?Current non-smoker ?Tobacco use other than smoking?Are you an other tobacco user??No ???Drugs/Alcohol:?Drugs?Have you used drugs other than those for medical reasons in the past 12 months??No ?Alcohol Screen?Did you have a drink containing alcohol in the past year??No ?Points?0 ?Interpretation?Negative ???Miscellaneous:?no Caffeine. ?Children: yes, 3. ?Exercise: yes, walking. ?Marital status: . ?Occupation: Retired. * Medications:?TakingIncruse E llipta 62.5 MCG/INH Aerosol Powder Breath Activated 1 puff Inhalation Once a dayamLODIPine Besylate 10 MG Tablet 1 tablet Orally Once a dayAtorvastatin Calcium 40 MG Tablet 1 tablet Orally Once a dayglipiZIDE 7.5MG Orally hydroCHLOROthiazide 12.5 MG Tablet 1 tablet in the morning Orally Once a dayWarfarin Sodium 5 MG Tablet 1 tablet Orally Once a dayLosartan Potassium 50 MG Tablet 1 tablet Orally Once a dayMetoprolol Tartrate 50 MG Tablet 1 tablet with food Orally Twice a daymetFORMIN HCl 500 MG Tablet 1 tablet with a meal Orally Once a dayTerazosin HCl 1 MG Capsule 1 capsule at bedtime Orally Once a dayVitamin D3 Advair Diskus 500-50 MCG/DOSE Aerosol Powder Breath Activated 1 puff Inhalation Twice a dayAlbuterol Taking Incruse Ellipta 62.5 MCG/INH Aerosol Powder Breath Activated 1 puff Inhalation Once a dayTaking amLODIPine Besylate 10 MG Tablet 1 tablet Orally Once a dayTaking Atorvastatin Calcium 40 MG Tablet 1 tablet Orally Once a dayTaking glipiZIDE 7.5MG Orally Taking hydroCHLOROthiazide 12.5 MG Tablet 1 tablet in the morning Orally Once a dayTaking Warfarin Sodium 5 MG Tablet 1 tablet Orally Once a dayTaking Losartan Potassium 50 MG Tablet 1 tablet Orally Once a dayTaking Metoprolol Tartrate 50 MG Tablet 1 tablet with food Orally Twice a dayTaking metFORMIN HCl 500 MG Tablet 1 tablet with a meal Orally Once a dayTaking Terazosin HCl 1 MG Capsule 1 capsule at bedtime Orally Once a dayTaking Vitamin D3 Taking Advair Diskus 500-50 MCG/DOSE Aerosol Powder Breath Activated 1 puff Inhalation Twice a dayTaking Albuterol Not-Taking/PRNAmmonium Lactate 12 % Cream 1 application to affected area Externally Twice a day to dry areas of skin on feetCephalexin 500 MG Capsule 1 capsule Orally twice a dayDoxycycline Monohydrate 100 MG Capsule 1 capsule Orally Twice a daySpiriva HandiHaler 18 MCG Capsule 1 capsule by inhaling the contents of the capsule using the HandiHaler device Inhalation Once a dayMedication List reviewed and reconciled with the patientNot-Taking/PRN Ammonium Lactate 12 % Cream 1 application to affected area Externally Twice a day to dry areas of skin on feetNot-Taking/PRN Cephalexin 500 MG Capsule 1 capsule Orally twice a dayNot-Taking/PRN Doxycycline Monohydrate 100 MG Capsule 1 capsule Orally Twice a dayNot-Taking/PRN Spiriva HandiHaler 18 MCG Capsule 1 capsule by inhaling the contents of the capsule using the HandiHaler device Inhalation Once a dayMedication List reviewed and reconciled with the patient * Allergies:?Lisinoprilyes[All ergies Verified] Objective: * Vitals:?Ht: 6 ft 0 in, Wt: 1 80, BMI: 24.41, Shoe size: 10-10.5, BP: 120/60 mm Hg, BS: 130, Wt-k.65 kg. * ???Past Orders: ???Lab:HEMOGLOBIN A1C (GLYCO HEMOGLOBIN) (Order Date - 01/14/2023) (Collection Date - 02/16/2023) ? Value Reference Range ?HEMOGLOBIN A1C % (HH) 5.8 * Examination: ???Ophthalmology Referral: ?DIABETES EYE EXAM?Dermatologic: ?SKIN FINDINGS:??Skin exam reveals keratotic lesion(s) located at, Medial plantar, IPJ, TA, SUB MTH (s), 1, Heel(s), Left .?Neurological: ?SENSORY:?Neurological exam demonstrates, reduced sharp/dull pin prick discrimination , reduced vibration sensation, reduced light touch sensation, , 5.07 monofilament test performed at plantar aspects of 5 varied sites per foot shows sensation, absent, at Forefoot left.?Nails: ?NAILS are:?elongated,overgrown,dystrophic,greater than 3mm thick,discolored and friable with crumbly malodorous subungual debris, with dull to no pain on palpation due to neuropathy, 1-5 Left foot.?Vascular: ?DP PULSES:?1/4, LEFT.?PT PULSES:? 0/4, LEFT.?CAPILLARY FILL TIME:? immediate, all digits, left.?SKIN TEMPERTURE GRADIENT OF THE LOWER EXTERMITIES:?normal, warm to cool, proximal to distal, left.?EDEMA:? 2/4, pitting, Left, Leg(s), Ankle(s).? Assessment: * Assessment: 1.?Tinea unguium - B35.1?2.? Type 2 diabetes mellitus with diabetic polyneuropathy - E11.42 (Primary)? Plan: * Treatment: 2.?Tinea unguium?Procedure: 07862-FXQRUZF NAIL, 1-5 * Procedures:?Debride Nails 1-5:?Procedure:?Nail debridement performed extensively to reduce/remove overall nail length and girth, subungual debris, and necrotic tissue, by manual and electrical means by use of a nail nipper and/or dremel, to more viable healthy nail plate or bed tissue 1-5. Silver nitrate used for any petechial bleeding as necessary. Patient chooses, no pharmaceutical tx (17891).?Keratoma Treatment:?Parring or Cutting of Benign Hyperkeratotic Lesion(s)?64263 (2-4 Lesions) - The Benign hyperkeratotic lesions, as described above were pared, and/or cut utilizing a sterile #15 blade, tissue nippers, and/or dremel.? * Procedure Codes:?79258 DEBRI DE NAIL, 1-5, Modifiers: Q7 84686 TRIM SKIN LESIONS, 2 TO 4, Modifiers: Q7 * Follow Up:?prn * Images: * Sign off status: Completed true * Provider:?Stephanie Bedoya DPM Date:?2023 Generated for Printi ng/Faxing/eTransmitting on:?03/01/2024 10:25 AM EST History and Physical Notes * HPI (History of Present Illness) Category Sub-Category Detail Notes Category Not es At Risk footcare Pt States Last PCP Visit: Date: 4 [facility] - 2003 Examination Category Sub-Category Detail Notes [...] plantar, IPJ, TA, SUB MTH (s), 1, Heel(s), Left Ophthalmology Referral DIABETES EYE EXAM Diabeti c Retinopathy Screening:: Yes Findings of Diabetic Eye Exam:: no retin opathy Vascular DP PULSES(B): 1/4, LEFT PT PULSES(B): 0/4, LEFT CAPILLARY FILL TIME: immediate, all digi ts, left TEMPERTURE GRADIENT(C): normal, warm to cool, proximal to distal, left EDEMA(C): 2/4, pitting, Left, Leg(s), Ankle(s) Nails NAILS are: elongated,overgr own,dystrophic,greater than 3mm thick,discolored and friable with crumbly malodorous subungual debris, with dull to no pain on palpation due to neuropathy, 1-5 Left foot
--- OUTSIDE RECORDS SUMMARY | 2024-03-01 10:26 | XMS_ITS | Patient Health Record ---
Author Organization [facility] Address [address] [place] [address] Care Team Providers Care Fibre [employer] Name Role Phone Flakita Stewart Primary Care Provider Unavailabl e Black, Stephanie Unavailable [phone] PkSarah gallardo Unavailable [phone] Allergies Allergen (clinical drug ingredient) Drug/Non Drug Allergy documented on EMR Reaction Allergy Type Onset Date Status lisinopril Lisinopril Unknown Drug Allergy Activ e Results Component Value Reference Range Notes HEMOGLOBIN A1C (GLYCOHEMOGLO BIN) Reviewed date:02/15/2024 03:28:17 PM Interpretation: Performing Lab: Notes/Report: TOTAL HEMOGLOBIN (HGBA1C) 6.5 Reason For Referral No Information Medications Medication SIG (Take, Route, Frequency, Duration) Notes Start Date End Date Status Terazosin HCl 1 MG 1 capsule at bedtime Orally Once a day for 30 day(s) Active metFORMIN HCl 500 MG 1 tablet with a brandin l Orally Once a day for 30 day(s) Active Vitamin D3 Active glipiZIDE 7.5MG Orally Not- Taking Cephalexin 500 MG 1 capsule Orally twice a day for 10 days 03/05/2023 Not-Taking Atorvastatin Calcium 40 MG 1 tablet Oral ly Once a day for 30 day(s) Active Ammonium Lactate 12 % 1 application to affected area Externally Twice a day to dry areas of skin on feet for 30 days 07/28/2022 Not-Taking amLODIPine Besylate 10 MG 1 tablet Orall y Once a day for 30 day(s) Active Albuterol Active Incruse Ellipta 62.5 MCG/INH 1 puff Inha lation Once a day Active Advair Diskus 500-50 MCG/DOSE 1 puff Inhalation Twice a day Active Metoprolol Tartrate 50 MG 1 tablet with food Orally Twice a day for 30 day(s) Active Losartan Potassium 50 MG 1 tablet Orally Once a day for 30 day(s) Active Warfarin Sodium 5 MG 1 tablet Orally Onc e a day for 30 day(s) Active Spiriva HandiHaler 18 MCG 1 capsule by inhaling the contents of the capsule using the HandiHaler device Inhalation Once a day Not-Taking hydroCHLOROthiazide 12.5 MG 1 tablet in the morning Orally Once a day for 30 day(s) Not-Taking Doxycycline Monohydrate 100 MG 1 capsule Orally Twice a day for 7 days 03/11/2023 Not-Taking Immunizations Vaccine Route Administration Date Status Comme nts COVID-19 Pfizer BioNTech Vaccine Unknown 12/26/2020 Administered Unsure of dates - Booster 12/2020 Influenza Unknown 12/13/2019 Administered Influenza Unknown 12/15/2022 Administered Social History Tobacco Use: Social History Observation [...] Are you an other tobacco user? No Problems Problem Type SNOMED Code ICD Code Onset Dates Problem Status W/U Status Risk Notes Problem Polyneuropathy due to type 2 diabetes mellitus (382531460) Type 2 diabetes mellitus with diabetic polyneuropathy (E11.42) Active confirmed Problem Ulcer of toe of right foot (disorder) (094758961969630 01) Skin ulcer of toe of right foot, limited to breakdown of skin (L97.511) Active confirmed Problem 766392697 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) Active confirmed Problem Ulcer of toe of left foot (disorder) (716855387489252 02) Skin ulcer of toe of left foot, limited to breakdown of skin (L97.521) Active confirmed Nonapplicable Problem 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) Active confirmed Response to treatment,Impr ovement Vital Signs Blood pressure diastolic 58 mm Hg 02/15/2024 Height 6 ft 0 in in 02/15/2024 Blood pressure systolic 140 mm Hg 02/15/2024 Weight 172 lbs 02/15/2024 BMI 23.32 kg/m2 02/15/2024 Procedures Procedure Date Ordered Date Performed Result Body Sit e 48560-XGIBLQE NAIL, 1-5 05/21/2023 N/A 72805- Debride <25 sq cm 05/21/2023 N/A 08898-VOHV SKIN LESIONS, 2 TO 4 05/21/2023 N/A 59477-DNBTJAG NAIL, 1-5 09/03/2023 N/A 19697-CJXM SKIN LESIONS, 2 TO 4 09/03/2023 N/A 99015-QXKPMZT NAIL, 1-5 02/15/2024 N/A 38344-LPBN SKIN LESIONS, 2 TO 4 02/15/2024 N/A Encounters Encounter Location Date Provider Diagnosis [address] [address] 03/05/2023 Stephanie Black Abscess of toe, righ t L02.[address] [address] 03/11/2023 Sarah Perica Neurotrophic ulcer o f left foot limited to breakdown of skin L97.521 ; Cellulitis of left toe L03.032 and Type 2 diabetes mellitus with diabetic polyneuropathy E11.[address] [address] 03/19/2023 Stephanie Black Neurotrophic ulcer o f left foot limited to breakdown of skin L97.521 ; Cellulitis of left toe L03.032 and Type 2 diabetes mellitus with diabetic polyneuropathy E11.[address] [address] 05/21/2023 Stephanie Black Type 2 diabetes mellitus with diabetic polyneuropathy E11.42 ; Skin ulcer of toe of left foot, limited to breakdown of skin L97.521 and Tinea unguium B35.[address] [address] 09/03/2023 Stephanie Black Tinea unguium B35.1 and Type 2 diabetes mellitus with diabetic polyneuropathy E11.42 [facility] [address] [address] 02/15/2024 Stephanie Black Tinea unguium B35.1 and Type 2 diabetes mellitus with diabetic polyneuropathy E11.[address] [facility] [address] 03/05/2023 [facility] [address] 03/11/2023 Sarah Hardin Assessments Encounter Date Diagnosis (ICD Code) Assessment Notes Treatment Notes Treatment Clinical Notes Section Notes 03/05/2023 Abscess of toe, right (ICD-10 - L02.611) Patient Educated with: WOUND CARE INSTRUCTIONS. pdf (WOUND CARE INSTRUCTIONS. pdf) 03/11/2023 Cellulitis of left toe (ICD-10 - L03.032) 03/11/2023 Neurotrophic ulcer of left foot limited to breakdown of skin (ICD-10 - L97.521) Response to treatment Patient Educated with: WOUND CARE INSTRUCTIONS. pdf (WOUND CARE INSTRUCTIONS. pdf) 03/19/2023 Cellulitis of left toe (ICD-10 - L03.032) 05/21/2023 Type 2 diabetes mellitus with diabetic polyneuropathy (ICD-10 - E11.42) 05/21/2023 Skin ulcer of toe of left foot, limited to breakdown of skin (ICD-10 - L97.521) Nonapplicable Patient Educated with: WOUND CARE INSTRUCTIONS. pdf (WOUND CARE INSTRUCTIONS. pdf) 09/03/2023 Tinea unguium (ICD-10 - B35.1) 03/19/2023 Neurotrophic ulcer of left foot limited to breakdown of skin (ICD-10 - L97.521) Response to treatment,Improve ment Patient Educated with: WOUND CARE INSTRUCTIONS. pdf (WOUND CARE INSTRUCTIONS. pdf) 02/15/2024 Tinea unguium (ICD-10 - B35.1) 02/15/2024 Type 2 diabetes mellitus with diabetic polyneuropathy (ICD-10 - E11.42) 05/21/2023 Tinea unguium (ICD-10 - B35.1) 09/03/2023 Type 2 diabetes mellitus with diabetic polyneuropathy (ICD-10 - E11.42) 03/19/2023 Type 2 diabetes mellitus with diabetic polyneuropathy (ICD-10 - E11.42) 03/11/2023 Type 2 diabetes mellitus with diabetic polyneuropathy (ICD-10 - E11.42) Plan Of Treatment Pending Test Test Name Order Date 73672-UDGYWUJ NAIL, 6 OR MORE 06/14/2020 66315-MSDXMPO NAIL, 6 OR MORE 12/31/2020 59844-RWMAOKK NAIL, 1-5 09/13/2020 05050-WGDYOOC NAIL, 1-5 01/23/2020 50000-EQKCAIH NAIL, 1-5 04/15/2021 44085-ORPFULX NAIL, 1-5 07/15/2021 32236-QOXLKDI NAIL, 1-5 10/14/2021 08379-CHKVYNL NAIL, 1-5 01/23/2022 21289-PZSMEBC NAIL, 1-5 04/28/2022 59847-ZNIYPMK NAIL, 1-5 07/28/2022 93700-GSTRZKD NAIL, 1-5 11/10/2022 65456-JJVDBSY NAIL, 1-5 02/16/2023 08199-NXPMXUZ NAIL, 1-5 05/21/2023 04244-YFLLRQI NAIL, 1-5 09/03/2023 38044-UOQZKRJ NAIL, 1-5 02/15/2024 58113-Tupqpvtz Plate 02/16/2023 85980- Debride <25 sq cm 05/21/2023 35611-BXPD SKIN LESIONS, 2 TO 4 05/21/19 24 23036-ZIQN SKIN LESIONS, 2 TO 4 09/03/19 24 62631-YDMG SKIN LESIONS, 2 TO 4 02/15/20 24 76831-BRCL SKIN LESIONS, 2 TO 4 01/23/20 20 96410-VRSV SKIN LESIONS, 2 TO 4 02/17/20 23 48987-JBMS SKIN LESIONS, 2 TO 4 11/11/19 23 56400-OQZH SKIN LESIONS, 2 TO 4 07/29/19 23 45386-LHLF SKIN LESIONS, 2 TO 4 04/28/19 23 60476-NZFM SKIN LESIONS, 2 TO 4 01/24/20 22 41958-QTYZ SKIN LESIONS, 2 TO 4 10/15/19 83860-WGWA SKIN LESIONS, 2 TO 4 05/02/20 22 49025-BLPM SKIN LESIONS, 2 TO 4 06/15/19 21 55907-WWUX SKIN LESIONS, 2 TO 4 09/14/19 21 63612-GJXX SKIN LESIONS, 2 TO 4 01/01/20 21 00894-CXQR SKIN LESIONS, 2 TO 4 04/15/19 22 HEMOGLOBIN A1C (GLYCOHEMOGLOBIN) 020 Next Appt Details Provider Name:Stephanie Bedoya , 08/15/2024 11:00:00 AM, [address] [facility], [place], [address], Insurance Providers Payer Name Payer Address Payer Phone Subscriber Number Group Number Insured Name Patient Relationship to Insured Coverage Start Date Coverage End Date Medicare National Govt [facility] [address] [place] [address] [id number] Florentino Bean Self - patient is the insured [facility] [address] [place] [address] [id number] Florentino Bean Self - patient is the insured 0 Medical (General) History Medical History History ICD Code CAD (Cholesterol) Cancer Cataracts Diabetic Gout Heart disease High blood pressure Lung disease Poor circulation Psoriasis Warts Measles Chicken pox Vascular grafts Transfusions Surgical History Surgery Date(Month/Year) right above the knee amputation 2004 parotidectomy 05/30/2015 Hospitalization History Reason Date(Month/Year[place] [facility] [place] [facility] - Knee Amputation 200 4
[2024-03-01 10:39] LABS: Prothrombin Time Whole Bld POC 29.2 sec (11.1-13.5); ~PT, ~INR - Anti Coag Clinic 2.4 (0.9-1.1)
--- NOTE | 2024-03-01 10:54 | MHC.OFFVISCO ---
Intake Intake Visit Reasons: Anticoagulation Allergies lisinopril [LISINOPRIL] Allergy (Unknown, Verified 03/01/24 10:34) HIVES Medication List - Last Reconciled 03/01/24 by Taya Polk RN albuterol sulfate 90 mcg/actuation 2 puffs inhalation Q4H PRN amlodipine 10 mg PO DAILY 90 days atorvastatin 40 mg PO DAILY blood sugar diagnostic (FreeStyle Lite Strips) ONCE A DAY blood-glucose meter (FreeStyle Lite Meter kit) ONCE A DAY cholecalciferol (vitamin D3) 50 mcg PO DAILY dapagliflozin propanediol (Farxiga) 5 mg PO DAILY docusate sodium (Colace) 100 mg PO BEDTIME fluticasone propion-salmeterol 500-50 mcg/dose (Wixela Inhub) 1 inh inhalation BID lancets As directed lancets (FreeStyle Lancets) ONCE A DAY losartan 25 mg PO DAILY [MANUAL WHEELCHAIR As directed] metoprolol tartrate 50 mg PO BID tamsulosin 0.4 mg PO BEDTIME 90 days tramadol 50 mg PO TID PRN 30 days umeclidinium 62.5 mcg/actuation (Incruse Ellipta) 1 inh PO BEDTIME warfarin 2.5 mg See Protocol PO 6XW warfarin 5 mg See Protocol PO QWEEK Nursing Note INR: 2.4 in therapeutic range of 2-3 Medications and supplements reviewed No changes in health, diet, medications, or supplements, Denies any signs and symptoms of bleeding or bruising or clotting. Bleeding, bruising, clotting discussed Nutritional guidance given Dose: 2.5mg daily F/U INR: 3 weeks Patient verbalizes understanding of instructions given Anti-Coag Initial Assessment Social Hx Patient Tobacco Use Status: Former Tobacco user Tobacco use type: Cigarette alcohol intake: never Coding Level of Care Code Est Patient Level 1 Diagnoses Current use of anticoagulant therapy Z79.01 Assessment & Plan Assessment & Plan (1) Current use of anticoagulant therapy: Code(s): Z79.01 - skilled nursing (current) use of anticoagulants Category: Medical
== END 2024-03-01 10:56 | disposition home or self-care (01) ==
LOC: HO.ACS 10:23
PROVIDERS: PCP Internal Medicine; Visit Provider Internal Medicine
DX: Z79.01 Long term (current) use of anticoagulants (principal)

== ENCOUNTER → 2024-03-01 10:23 | Outpatient (BNVA) | payer MEDICARE, OTHER, SELFPAY | PROVIDERS: PCP Internal Medicine; Visit Provider Internal Medicine | DX: I48.0 Paroxysmal atrial fibrillation (principal); Z79.01 Long term (current) use of anticoagulants; Z51.81 Encounter for therapeutic drug level monitoring | CPT/HCPCS: 85610; 99211 ==

== ENCOUNTER 2024-03-17 11:38 | Outpatient (REF) | payer MEDICARE, OTHER, SELFPAY ==
--- OUTSIDE RECORDS SUMMARY | 2024-03-17 12:50 | XMS_ITS ---
[facility] Address [address] [place] [address] Care Team Providers Care Underground Miner Name Role Phone Flakita tSewart Primary Care Provider Stephanie Pagan [phone] John Encounters Encounter Location Date Provider Diagnosis [address] [address] 12/14/2023 Stephanie Bedoya Plan Of Treatment Next Appt Details Provider Name:Stephanie Miller Bedoya , 08/15/2024 11:00:00 AM, [address] [place] [address], [phone], Progress Notes * Florentino BEAN RDOB: (88 yo M)Acc No.[id number]:12/14/2023 Progress Note Patient:?Florentino BEAN Provider:?Stephanie Bedoya DPM :1935???Age:88 Y???Sex:Male Darryl e:12/14/2023 Address:[address] [place] [address] Pcp:Flakita Stewart Subjective: * Chief Complaints: * [...] Bedoya DPM Date:?2023 Generated for Jessie chapa/Abilio/Gin on:?03/17/2024 12:50 PM EST
--- OUTSIDE RECORDS SUMMARY | 2024-03-17 12:50 | XMS_ITS ---
Author Organization [facility] Address [address] [place] [address] Care Team Providers Care Brick Sorter Name Role Phone Flakita Stewart Primary Care Provider Unavailabl e Black, Stephanie Unavailable [phone] Allergies Allergen (clinical drug ingredient) Drug/Non Drug [...] an other tobacco user? No Vital Signs Blood pressure systolic 120 mm Hg 09/03/19 24 Blood pressure diastolic 60 mm Hg 024 Height 6 ft 0 in in 09/03/2023 Weight 180 lbs 09/03/2023 BMI 24.41 kg/m2 09/03/2023 Procedures Procedure Date Ordered Date Performed Result Body Sit e 43375-BNKLDBT NAIL, 1-5 09/03/2023 N/A 37573-GAZV SKIN LESIONS, 2 TO 4 09/03/2023 N/A Encounters Encounter Location Date Provider Diagnosis [facility] [address] [address] 09/03/2023 Stephanie Black Tinea unguium B35.1 and Type 2 diabetes mellitus with diabetic polyneuropathy E11.42 Assessments Encounter Date Diagnosis (ICD Code) Assessment Notes Treatment Notes Treatment Clinical Notes Section Notes 09/03/2023 Tinea unguium (ICD-10 - B35.1) 09/03/2023 Type 2 diabetes mellitus with diabetic polyneuropathy (ICD-10 - E11.42) Plan Of Treatment Pending Test Test Name Order Date 30262-VTMZSGN NAIL, 1-5 09/03/2023 99971-ENOV SKIN LESIONS, 2 TO 4 09/03/19 24 Next Appt Details Follow Up: prn, Reason: Provider Name:Stephanie Miller Aureliano , 08/15/2024 11:00:00 AM, [address] [place] [address] [place], [address], Procedure Notes * Category Sub-Category Detail Notes Keratoma Treatment Parring or Cutting o f Benign Hyperkeratotic Lesion(s) 34282 (2-4 Lesions) - The Benign hyperkeratotic lesions, [...] as necessary. Patient chooses, no pharmaceutical tx (09709) Progress Notes * Florentino BAEN RDOB: [birth year] (87 yo M)Acc No.[id number]:09/03/2023 Progress Note Patient:?Florentino Bean R Provider:?Stephanie Bedoya DPM :1935???Age:87 Y???Sex:Male Darryl e:09/03/2023 Address:[address] [place], [place] [address] Pcp:Flakita Stewart Subjective: * Chief Complaints: * [...] E11.42 (Primary)? Plan: * Treatment: 2.?Tinea unguium?Procedure: 56597-LHHTUZS NAIL, 1-5 * Procedures:?Debride Nails 1-5:?Procedure:?Nail debridement performed extensively to reduce/remove overall nail length and girth, subungual debris, and necrotic tissue, by manual and electrical means by use of a nail nipper and/or dremel, to more viable healthy nail plate or bed tissue 1-5. Silver nitrate used for any petechial bleeding as necessary. Patient chooses, no pharmaceutical tx (23992).?Keratoma Treatment:?Parring or Cutting of Benign Hyperkeratotic Lesion(s)?42391 (2-4 Lesions) - The Benign hyperkeratotic lesions, as described above were pared, and/or cut utilizing a sterile #15 blade, tissue nippers, and/or dremel.? * Procedure Codes:?09917 DEBRI DE NAIL, 1-5, Modifiers: Q7 23663 TRIM SKIN LESIONS, 2 TO 4, Modifiers: Q7 * Follow Up:?prn * Images: * Sign off status: Completed true * Provider:?Stephanie Bedoya DPM Date:?2023 Generated for Printi ng/Fagómezg/eTransmitting on:?03/17/2024 12:50 PM EST History and Physical Notes * HPI [...] Eye Exam:: no retin opathy Vascular DP PULSES (B): 1/4, LEFT PT PULSES (B): 0/4, LEFT CAPILLARY FILL TIME: immediate, all digi ts, left TEMPERTURE GRADIENT (C): normal, warm to cool, proximal to distal, left EDEMA (C): 2/4, pitting, Left, Leg(s), Ankle(s) Nails NAILS are: elongated,overgr own,dystrophic,greater than 3mm thick,discolored and friable with crumbly malodorous subungual debris, with dull to no pain on palpation due to neuropathy, 1-5 Left foot
--- OUTSIDE RECORDS SUMMARY | 2024-03-17 12:51 | XMS_ITS | Patient Health Record ---
Author Organization [facility] Address [address] [place] [address] Care Team Providers Care Short Order Fry Cook Name Role Phone Flakita Stewart Primary Care Provider Unavailabl e Black, Stephanie Unavailable [phone] Allergies Allergen (clinical drug ingredient) Drug/Non Drug [...] Polyneuropathy due to type 2 diabetes mellitus (191607890) Type 2 diabetes mellitus with diabetic polyneuropathy (E11.42) Active confirmed Problem Ulcer of toe of right foot (disorder) (845067132604289 01) Skin ulcer of toe of right foot, limited to breakdown of skin (L97.511) Active confirmed Problem 273305179 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) Active confirmed Problem Ulcer of toe of left foot (disorder) (950454196559515 02) Skin ulcer of toe of left [...] Ordered Date Performed Result Body Sit e 74258-KONYBJM NAIL, 1-5 05/21/2023 N/A 38538- Debride <25 sq cm 05/21/2023 N/A 96349-WZTO SKIN LESIONS, 2 TO 4 05/21/2023 N/A 97611-PUDYOVH NAIL, 1-5 09/03/2023 N/A 55945-WYZI SKIN LESIONS, 2 TO 4 09/03/2023 N/A 13724-MPGORAK NAIL, 1-5 02/15/2024 N/A 37613-VQOV SKIN LESIONS, 2 TO 4 02/15/2024 N/A Encounters Encounter Location Date Provider Diagnosis [address] [address] 03/19/2023 Stephanie Black Neurotrophic ulcer o f left foot limited to breakdown of skin L97.521 ; Cellulitis of left toe L03.032 and Type 2 diabetes mellitus with diabetic polyneuropathy E11.[address] [address] 05/21/2023 Stephanie Black Type 2 diabetes mellitus with diabetic polyneuropathy E11.42 ; Skin ulcer of toe of left foot, limited to breakdown of skin L97.521 and Tinea unguium B35.[address] [address] 09/03/2023 Stephanie Black Tinea unguium B35.1 and Type 2 diabetes mellitus with diabetic polyneuropathy E11.[address] [address] 02/15/2024 Stephanie Black Tinea unguium B35.1 and Type 2 diabetes mellitus with diabetic polyneuropathy E11.42 Assessments Encounter Date Diagnosis (ICD Code) Assessment Notes Treatment Notes Treatment Clinical Notes Section Notes 03/19/2023 Cellulitis of left toe (ICD-10 - [...] Treatment Pending Test Test Name Order Date 83538-WEICWUR NAIL, 6 OR MORE 06/14/2020 34686-IEPYNNL NAIL, 6 OR MORE 12/31/2020 13075-LVMAYGV NAIL, 1-5 09/13/2020 94856-GPVVVFH NAIL, -5 01/23/2020 45568-SXGEZOP NAIL, -5 04/15/2021 73145-EMVJTVR NAIL, -5 07/15/2021 67987-ULWNMHZ NAIL, -5 10/14/2021 99463-PDKLQJE NAIL, -5 01/23/2022 75842-ZQVLPTK NAIL, -5 04/28/2022 41703-JZUSPDT NAIL, -5 07/28/2022 55284-VWBBBSK NAIL, -5 11/10/2022 07136-OZTHJKM NAIL, -5 02/16/2023 53658-YEZUSKZ NAIL, -5 05/21/2023 10358-KKEGPZC NAIL, -5 09/03/2023 33901-LQYQLAZ NAIL, -5 02/15/2024 05101-Eelhbvrp Plate 02/16/2023 42383- Debride <25 sq cm 05/21/2023 50565-LRNG SKIN LESIONS, 2 TO 4 05/21/19 24 78901-UBGK SKIN LESIONS, 2 TO 4 09/03/19 24 02967-AVNB SKIN LESIONS, 2 TO 4 02/15/20 24 70479-ENRY SKIN LESIONS, 2 TO 4 01/23/20 20 64531-OELP SKIN LESIONS, 2 TO 4 02/17/20 23 40260-XHCW SKIN LESIONS, 2 TO 4 11/11/19 23 14699-XIAU SKIN LESIONS, 2 TO 4 07/29/19 23 89062-EFGX SKIN LESIONS, 2 TO 4 04/28/19 23 39008-QEDM SKIN LESIONS, 2 TO 4 01/24/20 22 98509-XQKH SKIN LESIONS, 2 TO 4 10/15/19 22 34300-UKHQ SKIN LESIONS, 2 TO 4 07/16/19 22 13486-SMGO SKIN LESIONS, 2 TO 4 06/15/19 21 31148-LBHA SKIN LESIONS, 2 TO 4 09/14/19 21 46962-GLIZ SKIN LESIONS, 2 TO 4 01/01/20 21 64920-CJSX SKIN LESIONS, 2 TO 4 04/15/19 22 HEMOGLOBIN A1C (GLYCOHEMOGLOBIN) 020 Next Appt Details Provider Name:Stephanie Bedoya , 08/15/2024 11:00:00 AM, [address] [facility], [place], [address], Insurance Providers Payer Name Payer Address Payer Phone Subscriber Number Group Number Insured Name Patient Relationship to Insured Coverage Start Date Coverage End Date Medicare National [employer] [address] [facility] [address] [phone] [id number] Florentino Bean Self - patient is the insured [facility] [address] [place], [place] [address] [id number] Florentino Bean Self - patient is the insured 0 Medical (General) History Medical History History ICD Code CAD (Cholesterol) Cancer Cataracts Diabetic Gout Heart disease High blood pressure Lung disease Poor circulation Psoriasis Warts Measles Chicken pox Vascular grafts Transfusions Surgical History Surgery Date(Month/Year) right above the knee amputation 2004 parotidectomy 05/30/2015 Hospitalization History Reason Date(Month/Year) [facility] [place]-[address] [facility] - Knee Amputation 200 4
[2024-03-17 13:15] LABS: Hematocrit 30.9 % (42.0-52.0); Hemoglobin 9.8 g/dl (14.0-18.0); Mean Corpuscular HGB Conc 31.7 g/dl (31.0-36.0); Mean Corpuscular Hemoglobin 28.7 pg (27.0-33.0); Mean Corpuscular Volume 90.6 fL (80.0-98.0); Mean Platelet Volume 10.4 fL (9.4-12.4); Platelet Count 230 X10*3/uL (160-400); Red Blood Count 3.41 X10*6/uL (4.60-5.80); Red Cell Distribution Width 15.2 % (11.0-16.0); White Blood Count 7.8 X10*3/uL (4.8-10.8)
[2024-03-17 13:25] LABS: Anion Gap 10 (12-20); Blood Urea Nitrogen 51 mg/dL (9-16); Calcium 8.5 mg/dL (8.4-10.2); Carbon Dioxide 21 mmol/L (22-29); Chloride 112 mmol/L (96-108); Estimated Glomerular Filt Rate 31; Glucose Random 153 mg/dL (60-115); Phosphorus 3.4 mg/dL (2.7-4.5); Sodium 138 mmol/L (135-145)
[2024-03-17 13:31] LABS: Parathyroid Hormone Intact 137.9 pg/mL (8.7-77.1)
== END 2024-03-17 11:39 | disposition home or self-care (01) ==
LOC: HO.LAB 11:38
PROVIDERS: PCP Internal Medicine; Visit Provider Internal Medicine Hypertension Specialist
DX: N18.30 Chronic kidney disease, stage 3 unspecified (principal); E78.00 Pure hypercholesterolemia, unspecified
CPT/HCPCS: 36415; 80048; 83970; 84100; 85027

== ENCOUNTER 2024-03-21 14:17 | Outpatient (AMB) | payer MEDICARE, OTHER, SELFPAY ==
[2024-03-21 14:23] VITALS: BP 138/40; BMI 23.3
--- NOTE | 2024-03-21 14:23 | HO.NEPHOV ---
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 Required: No Accompanied by: Family/Other Allergies lisinopril [LISINOPRIL] Allergy (Unknown, Verified 03/21/24 14:27) HIVES Medication List - Last Reconciled 03/21/24 by Tato Narvaez MD albuterol sulfate 90 mcg/actuation 2 puffs inhalation Q4H PRN amlodipine 10 mg PO DAILY 90 days atorvastatin 40 mg PO DAILY blood sugar diagnostic (FreeStyle Lite Strips) ONCE A DAY blood-glucose meter (FreeStyle Lite Meter kit) ONCE A DAY cholecalciferol (vitamin D3) 50 mcg PO DAILY dapagliflozin propanediol (Farxiga) 5 mg PO DAILY docusate sodium (Colace) 100 mg PO BEDTIME fluticasone propion-salmeterol 500-50 mcg/dose (Wixela Inhub) 1 inh inhalation BID lancets As directed lancets (FreeStyle Lancets) ONCE A DAY losartan 25 mg PO DAILY [MANUAL WHEELCHAIR As directed] metoprolol tartrate 50 mg PO BID tamsulosin 0.4 mg PO BEDTIME 90 days tramadol 50 mg PO TID PRN 30 days umeclidinium 62.5 mcg/actuation (Incruse Ellipta) 1 inh PO BEDTIME warfarin 2.5 mg See Protocol PO 6XW warfarin 5 mg See Protocol PO QWEEK HPI Comments Details: Florentino is a pleasant 87-year-old man with a history of longstanding diabetes mellitus for more than 20 years along with hypertension complicated by peripheral vascular disease. He has undergone right lower limb amputation due to peripheral vascular disease and he has a prosthetic limb. 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 He has been on losartan for quite some time. Losartan was discontinued in July 2023 due to worsening renal function. There was marginal improvement in serum creatinine from 2.1 down to 1.7 mg/dL. He has been referred for evaluation of renal insufficiency. Florentino has a history of smoking for several years he quit smoking in 1987. History of coronary disease status post stent placement. No history of congestive heart failure. Recent echocardiogram showed moderate to severe aortic stenosis. 12/24/23 Doing well No significant change in creatinine after stopping Losartan 01/26/24 Accompanied by family Overall doing well. No shortness of breath. No urinary stenosis. 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 Mother No problems noted. Social History Household Members: Spouse Housing: House Do you presently have visiting nurse or other home services: No Alcohol intake: never Patient Tobacco Use Status: Former Tobacco user Tobacco use type: Cigarette Years Smoked: quit 1987 e-Cigarette/Vaping Use: Never Used Second Hand Smoke Exposure: No service: No Current occupational status: retired Cognitive needs: Yes (cane/walker/wheelchair) Hearing needs: Yes Vision needs: Yes Physical Exam Vital Signs: Last Vital Signs BP 138/40 L 03/21/24 14:23 BMI result Body Mass Index 23.3 Comfortable Neck supple no JVD. Lungs entry equal no rales. Heart S1-S2 heard no gallop or rub. Abdomen soft nontender. Neuro alert awake oriented. No asterixis. Extremities no edema. Const General: comfortable; No acute distress Orientation/consciousness: patient oriented x3 Eyes General: appearance normal, both eyes and all related structures Visual Lowry: normal visual lowry by confrontation Neck Neck: Yes supple and Yes no JVD Resp Effort & Inspection: normal respiratory effort and respiratory effort not decreased Auscultation: rhonchi Cardio Palpation: no palpable S3 and no palpable S4 Heart sounds: no rubs GI Inspection: Yes normal to inspection Palpation (GI): Soft to palpation Percussion: Yes normal to percussion Auscultation: normal bowel sounds General: Yes no CVA tenderness Back/Spine/Pelvis Back: no CVA tenderness Skin General skin exam: no petechiae and no purpura Neuro General: patient oriented x3 and no focal motor deficits Extrem Other: Prosthetic right lower extremity. General: No clubbing and Yes edema (One to 2+ on left lower extreme) Results Reviewed Nephrology Results: Hgb 9.8 g/dl (14.0-18.0) L 03/17/24 WBC 7.8 X10*3/uL (4.8-10.8) 03/17/24 Plt Count 230 X10*3/uL (160-400) 03/17/24 Sodium 138 mmol/L (135-145) 03/17/24 Potassium 5.0 mmol/L (3.3-5.1) 03/17/24 Chloride 112 mmol/L (96-108) H 03/17/24 Carbon Dioxide 21 mmol/L (22-29) L 03/17/24 BUN 51 mg/dL (9-16) H 03/17/24 Creatinine 2.05 mg/dL (0.5-1.4) H 03/17/24 Calcium 8.5 mg/dL (8.4-10.2) 03/17/24 Phosphorus 3.4 mg/dL (2.7-4.5) 03/17/24 PTH Intact 137.9 pg/mL (8.7-77.1) H 03/17/24 Assessment & Plan Assessment & Plan (1) Chronic kidney disease: Comment: Stage IIIB Code(s): N18.9 - Chronic kidney disease, unspecified Category: Medical Qualifiers: Chronic kidney disease stage: stage 3 (moderate) Chronic kidney disease stage 3 subtype: unspecified whether 3a or 3b Qualified Code(s): N18.30 - Chronic kidney disease, stage 3 unspecified (2) Aortic stenosis: Comment: April 2021 moderate 1.2 cm squared March 2022he left ventricular systolic function is low normal. The calculated ejection fraction is 54% by biplane method. - The basal inferior and basal inferolateral segments are akinetic. - There is moderate to severe aortic valve stenosis. 1.0 cm2 October 2022 1.11 cm squared Code(s): I35.0 - Nonrheumatic aortic (valve) stenosis Category: Medical Qualifiers: Cardiac valve disease etiology: nonrheumatic Qualified Code(s): I35.0 - Nonrheumatic aortic (valve) stenosis (3) Anemia: Comment: Most likely due to EPO deficiency due to CKD Code(s): D64.9 - Anemia, unspecified Category: Medical Qualifiers: Anemia type: other cause Other causes of anemia: other cause, not classified Qualified Code(s): D64.89 - Other specified anemias (4) Hypercholesterolemia: Code(s): E78.00 - Pure hypercholesterolemia, unspecified Category: Medical (5) Type 2 diabetes mellitus with hyperglycemia: Code(s): E11.65 - Type 2 diabetes mellitus with hyperglycemia Category: Medical Qualifiers: Diabetes mellitus termite treater helper insulin use: without fpc use Qualified Code(s): E11.65 - Type 2 diabetes mellitus with hyperglycemia Plan . 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 Has nephrotic range proteinuria most likely due to underlying diabetic kidney disease. Given the history of significant peripheral vascular disease underlying renal artery stenosis/ischemic nephropathy is a possibility as well. Creatinine is bumped up after restarting losartan She will watch creatinine for now. If the creatinine continues to increase we might have to discontinue losartan as well. Obstructive uropathy ruled out by sonogram Other glomerular causes seem unlikely- serology essentially normal. At present blood pressure is acceptable. A1c has been under 7%. Recommendation Continue to hold hydrochlorothiazide 12.5 mg q.d. Keep losartan at a low dose of 25 mg QD and watch renal function Optimize blood pressure. Maintain blood pressure less than 130/80. Avoid hypotension. Optimize blood sugar and maintain hemoglobin A1c less than 7%. He would benefit from SGLT2 inhibitors. Keep Farxiga 5 mg QD He has anemia due to chronic kidney disease no indication for Epogen yet ,I will follow this closely secondary hyperparathyroidism. Mild elevationin PTH: 100 pg/ml Ca normal Shall watch Mild anemia. Hemoglobin down to 9.8 Check Iron No indication for Epogen. Orders: Orders Basic Metabolic Panel 3 Months N18.30 - Chronic kidney disease, stage 3 unspecified Complete Blood Count no Diff 3 Months N18.30 - Chronic kidney disease, stage 3 unspecified IRON PROFILE 3 Months N18.30 - Chronic kidney disease, stage 3 unspecified Ferritin 3 Months N18.30 - Chronic kidney disease, stage 3 unspecified Parathyroid Hormone Intact 3 Months N18.30 - Chronic kidney disease, stage 3 unspecified Coding Level of Care Code Est Pt Level 4 (04796) Diagnoses Stage 3 chronic kidney disease, unspecified whether stage 3a or 3b CKD N18.30 Chronic kidney disease stage: stage 3 (moderate) Chronic kidney disease stage 3 subtype: unspecified whether 3a or 3b Nonrheumatic aortic valve stenosis I35.0 Cardiac valve disease etiology: nonrheumatic Anemia due to other cause, not classified D64.89 Anemia type: other cause Other causes of anemia: other cause, not classified Hypercholesterolemia E78.00 Type 2 diabetes mellitus with hyperglycemia, without long-term current use of insulin E11.65 Diabetes mellitus fpc insulin use: without fpc use
--- OUTSIDE RECORDS SUMMARY | 2024-03-21 16:33 | XMS_ITS ---
Author Organization [facility] Address [address] [place] [address] Care Team Providers Care Mass Spectrometry Manager Name Role Phone Flakita Stewart Primary Care Provider Unavailabl e Black, Stephanie Unavailable [phone] Allergies Allergen (clinical drug ingredient) Drug/Non Drug [...] Ordered Date Performed Result Body Sit e 63231-JFJZGHU NAIL, 1-5 09/03/2023 N/A 40802-ADHH SKIN LESIONS, 2 TO 4 09/03/2023 N/A Encounters Encounter Location Date Provider Diagnosis [facility] [address] [address] 09/03/2023 Stephanie Bedoya Tinea unguium B35.1 and Type 2 diabetes mellitus with diabetic polyneuropathy E11.42 Assessments Encounter Date Diagnosis (ICD Code) Assessment Notes Treatment Notes Treatment Clinical Notes Section Notes 09/03/2023 Tinea unguium (ICD-10 - B35.1) 09/03/2023 Type 2 diabetes mellitus with diabetic polyneuropathy (ICD-10 - E11.42) Plan Of Treatment Pending Test Test Name Order Date 22697-LJGSMTH NAIL, 1-5 09/03/2023 14359-VDPK SKIN LESIONS, 2 TO 4 09/03/19 24 Next Appt Details Follow Up: prn, Reason: Provider Name:Stephanie Miller Aureliano , 08/15/2024 11:00:00 AM, [address] [place] [address] [place], [address], Procedure Notes * Category Sub-Category Detail Notes Keratoma Treatment Parring or Cutting o f Benign Hyperkeratotic Lesion(s) 23046 (2-4 Lesions) - The Benign hyperkeratotic lesions, [...] as necessary. Patient chooses, no pharmaceutical tx (82772) Progress Notes * Florentino BEAN RDOB: [birth year] (87 yo M)Acc No.[id number]:09/03/2023 Progress Note Patient:?Florentino Bean R Provider:?Stephanie Bedoya DPM :1935???Age:87 Y???Sex:Male Darryl e:09/03/2023 Address:[address] [place], [place] [id number] Pcp:Flakita Stewart Subjective: * Chief Complaints: * [...] E11.42 (Primary)? Plan: * Treatment: 2.?Tinea unguium?Procedure: 38234-VGJNQDG NAIL, 1-5 * Procedures:?Debride Nails 1-5:?Procedure:?Nail debridement performed extensively to reduce/remove overall nail length and girth, subungual debris, and necrotic tissue, by manual and electrical means by use of a nail nipper and/or dremel, to more viable healthy nail plate or bed tissue 1-5. Silver nitrate used for any petechial bleeding as necessary. Patient chooses, no pharmaceutical tx (81089).?Keratoma Treatment:?Parring or Cutting of Benign Hyperkeratotic Lesion(s)?22233 (2-4 Lesions) - The Benign hyperkeratotic lesions, as described above were pared, and/or cut utilizing a sterile #15 blade, tissue nippers, and/or dremel.? * Procedure Codes:?84957 DEBRI DE NAIL, 1-5, Modifiers: Q7 72814 TRIM SKIN LESIONS, 2 TO 4, Modifiers: Q7 * Follow Up:?prn * Images: * Sign off status: Completed true * Provider:?Stephanie Bedyoa DPM Date:?2023 Generated for Printi ng/Faxing/eTransmitting on:?03/21/2024 04:33 PM EST History and Physical Notes * [...]
--- OUTSIDE RECORDS SUMMARY | 2024-03-21 16:33 | XMS_ITS ---
Author Organization [facility] Address [address] [place] [address] Care Team Providers Care Cuff Setter Overlock Name Role Phone Flakita Stewart Primary Care Provider Stephanie Pagan [phone] John Encounters Encounter Location Date Provider Diagnosis [address] [address] 12/14/2023 Stephanie Bedoya Plan Of Treatment Next Appt Details Provider Name:Stephanie Miller Bedoya , 08/15/2024 11:00:00 AM, [address] [place] [address], [phone], Progress Notes * Florentino BEAN RDOB: (88 yo M)Acc No.[id number]:12/14/2023 Progress Note Patient:?Florentino BEAN Provider:?Stephanie Bedoya DPM :1935???Age:88 Y???Sex:Male Darryl e:12/14/2023 Address:[address] [place] [address] Pcp:Flakita Stewart Subjective: * Chief Complaints: * [...] Bedoya DPM Date:?2023 Generated for Jessie chapa/Abilio/Gin on:?03/21/2024 04:32 PM EST
--- OUTSIDE RECORDS SUMMARY | 2024-03-21 16:33 | XMS_ITS | Patient Health Record ---
Author Organization [facility] Address [address] [place] [address] Care Team Providers Care Hook Up Driver Name Role Phone Flakita Stewart Primary Care Provider Unavailabl e Black, Stephanie Unavailable [phone] Allergies Allergen (clinical drug ingredient) Drug/Non Drug [...] Polyneuropathy due to type 2 diabetes mellitus (852145120) Type 2 diabetes mellitus with diabetic polyneuropathy (E11.42) Active confirmed Problem Ulcer of toe of right foot (disorder) (248802045804052 01) Skin ulcer of toe of right foot, limited to breakdown of skin (L97.511) Active confirmed Problem 427726046 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) Active confirmed Problem Ulcer of toe of left foot (disorder) (419179903005675 02) Skin ulcer of toe of left [...] Ordered Date Performed Result Body Sit e 17743-DSUDHME NAIL, 1-5 05/21/2023 N/A 64352- Debride <25 sq cm 05/21/2023 N/A 92211-KLXO SKIN LESIONS, 2 TO 4 05/21/2023 N/A 30271-ZTCBFCK NAIL, 1-5 09/03/2023 N/A 47144-RNJX SKIN LESIONS, 2 TO 4 09/03/2023 N/A 45248-BEZGNOI NAIL, 1-5 02/15/2024 N/A 14011-KGBT SKIN LESIONS, 2 TO 4 02/15/2024 N/A Encounters Encounter Location Date Provider Diagnosis [address] [address] 05/21/2023 Stephanie Black Type 2 diabetes mellitus with diabetic polyneuropathy E11.42 ; Skin ulcer of toe of left foot, limited to breakdown of skin L97.521 and Tinea unguium B35.[address] [address] 09/03/2023 Stephanie Black Tinea unguium B35.1 and Type 2 diabetes mellitus with diabetic polyneuropathy E11.[address] [address] 02/15/2024 Stephanie Black Tinea unguium B35.1 and Type 2 diabetes mellitus with diabetic polyneuropathy E11.42 Assessments Encounter Date Diagnosis (ICD Code) Assessment Notes Treatment Notes Treatment Clinical Notes Section Notes 05/21/2023 Type 2 diabetes mellitus with diabetic polyneuropathy (ICD-10 - E11.42) 05/21/2023 Skin ulcer of toe of left foot, limited to breakdown of skin (ICD-10 - L97.521) Nonapplicable Patient Educated with: WOUND CARE INSTRUCTIONS. pdf (WOUND CARE INSTRUCTIONS. pdf) 09/03/2023 Tinea unguium (ICD-10 - B35.1) 02/15/2024 Tinea unguium (ICD-10 - B35.1) 02/15/2024 Type 2 diabetes mellitus with diabetic polyneuropathy (ICD-10 - E11.42) 05/21/2023 Tinea unguium (ICD-10 - B35.1) 09/03/2023 Type 2 diabetes mellitus with diabetic polyneuropathy (ICD-10 - E11.42) Plan Of Treatment Pending Test Test Name Order Date 83103-SVHMCOQ NAIL, 6 OR MORE 06/14/2020 45960-NZISXXU NAIL, 6 OR MORE 12/31/2020 54869-UPRQRYW NAIL, 1-5 09/13/2020 41575-QSSERMH NAIL, 1-5 01/23/2020 45244-FYMEDLW NAIL, 1-5 04/15/2021 82519-DFRZACS NAIL, 1-5 07/15/2021 92330-CGHYWEC NAIL, 1-5 10/14/2021 92571-JFBGZPZ NAIL, 1-5 01/23/2022 21106-KYDHODK NAIL, 1-5 04/28/2022 48258-FCISURN NAIL, 1-5 07/28/2022 85987-BEATPRZ NAIL, 1-5 11/10/2022 37482-BEJEGOY NAIL, 1-5 02/16/2023 88982-XTXMUUU NAIL, 1-5 05/21/2023 59106-YFVZZAM NAIL, 1-5 09/03/2023 99525-CFWIOJS NAIL, 1-5 02/15/2024 98758-Dkadljyb Plate 02/16/2023 64084- Debride <25 sq cm 05/21/2023 74668-OFEP SKIN LESIONS, 2 TO 4 05/21/19 24 23526-IZZC SKIN LESIONS, 2 TO 4 09/03/19 24 79066-JZYJ SKIN LESIONS, 2 TO 4 02/15/20 24 33676-IVIO SKIN LESIONS, 2 TO 4 01/23/20 20 87979-OPZD SKIN LESIONS, 2 TO 4 02/17/20 23 44119-CWAP SKIN LESIONS, 2 TO 4 11/11/19 23 11948-TBMP SKIN LESIONS, 2 TO 4 07/29/19 23 56892-NSNN SKIN LESIONS, 2 TO 4 04/28/19 23 90996-FHLZ SKIN LESIONS, 2 TO 4 01/24/20 22 66630-HZCS SKIN LESIONS, 2 TO 4 08/01/20 22 82047-PCKE SKIN LESIONS, 2 TO 4 07/16/19 22 47913-HWED SKIN LESIONS, 2 TO 4 06/15/19 21 08863-PLYX SKIN LESIONS, 2 TO 4 09/14/19 21 49560-HOXQ SKIN LESIONS, 2 TO 4 01/01/20 21 33383-TJLC SKIN LESIONS, 2 TO 4 04/15/19 22 HEMOGLOBIN A1C (GLYCOHEMOGLOBIN) 020 Next Appt Details Provider Name:Stephanie Bedoya , 08/15/2024 11:00:00 AM, [address] [place], [address], Insurance Providers Payer Name Payer Address Payer Phone Subscriber Number Group Number Insured Name Patient Relationship to Insured Coverage Start Date Coverage End Date Medicare National Govt [facility] [address] [place] [address] [id number] Florentino Bean Self - patient is the insured [employer] ([facility]) [address] [place] [address] [id number] Florentino Bean Self - patient is the insured 0 Medical (General) History Medical History History ICD Code CAD (Cholesterol) Cancer Cataracts Diabetic Gout Heart disease High blood pressure Lung disease Poor circulation Psoriasis Warts Measles Chicken pox Vascular grafts Transfusions Surgical History Surgery Date(Month/Year) right above the knee amputation 2004 parotidectomy 05/30/2015 Hospitalization History Reason Date(Month/Year) [facility] [place] 06/06 [facility] - Knee Amputation 200 4
--- OUTSIDE RECORDS SUMMARY | 2024-03-21 16:33 | XMS_ITS ---
Author Organization [facility] Address [address] [place] [address] Care Team Providers Care Extracting Machine Operator Name Role Phone Flakita Stewart Primary Care Provider Unavailabl e Black, Stephanie Unavailable [phone] Allergies Allergen (clinical drug ingredient) Drug/Non Drug [...] Ordered Date Performed Result Body Sit e 28224-XHSBHFR NAIL, 1-5 02/15/2024 N/A 07821-GKBE SKIN LESIONS, 2 TO 4 02/15/2024 N/A Encounters Encounter Location Date Provider Diagnosis [facility] [address] [address] 02/15/2024 Stephanie Bedoya Tinea unguium B35.1 and Type 2 diabetes mellitus with diabetic polyneuropathy E11.42 Assessments Encounter Date Diagnosis (ICD Code) Assessment Notes Treatment Notes Treatment Clinical Notes Section Notes 02/15/2024 Tinea unguium (ICD-10 - B35.1) 02/15/2024 Type 2 diabetes mellitus with diabetic polyneuropathy (ICD-10 - E11.42) Plan Of Treatment Pending Test Test Name Order Date 54280-EMBHOPE NAIL, 1-5 02/15/2024 18871-UPPL SKIN LESIONS, 2 TO 4 02/15/20 24 Next Appt Details Follow Up: prn, Reason: Provider Name:Stephanie Bedoya , 08/15/2024 11:00:00 AM, [address] [place] [address], [phone], Procedure Notes * Category Sub-Category Detail Notes Keratoma Treatment Parring or Cutting o f Benign Hyperkeratotic Lesion(s) (-56) 2-4 Lesions - The Benign hyperkeratotic lesions, (3) in total, locations as stated and described in exam, were pared, and/or cut utilizing a sterile 15 blade, tissue nippers, and/or power dremel instrumentation - 48255 Debride Nails 1-5 Procedure: Performance of this nail treatment by a nonprofessional would put this patients foot and overall health at risk. Therefore, debridement to affected nail(s), as described in exam, was performed extensively to reduce/remove overall nail length, girth, thickness, subungual debris, and necrotic tissue, by manual and/or electrical means through the use of a nail nipper and/or dremel-type bench grinder, to a more viable healthy nail [...] necessary to maintain effective symptomatic relief - 15565 Progress Notes * Florentino BEAN RDOB: 8 (88 yo M)Acc No.[id number]:02/15/2024 Progress Note Patient:?Florentino BEAN Provider:?Stephanie Bedoya DPM :1935???Age:88 Y???Sex:Male Darryl e:02/15/2024 Address:[address] [place], [place] [id number] Pcp:Flakita Stewart Subjective: * Chief Complaints: * [...] E11.42 (Primary)??? Plan: * Treatment: 2.?Tinea unguium?Procedure: 32621-SOUVHGM NAIL, 1-5 * Procedures:?Debride Nails 1-5:?Procedure:?Performance of this nail treatment by a nonprofessional would put this patients foot and overall health at risk. Therefore, debridement to affected nail(s), as described in exam, was performed extensively to reduce/remove overall nail length, girth, thickness, subungual debris, and necrotic tissue, by manual and/or electrical means through the use of a nail nipper and/or dremel-type bench grinder, to a more viable healthy nail [...] necessary to maintain effective symptomatic relief - 46135.?Keratoma Treatment:?Parring or Cutting of Benign Hyperkeratotic Lesion(s)?(-56) 2-4 Lesions - The Benign hyperkeratotic lesions, (3) in total, locations as stated and described in exam, were pared, and/or cut utilizing a sterile 15 blade, tissue nippers, and/or power dremel instrumentation - 39928.? * Procedure Codes:?38876 DEBRI DE NAIL, 1-5, Modifiers: Q7 16364 TRIM SKIN LESIONS, 2 TO 4, Modifiers: Q7 * Follow Up:?prn * Images: * Sign off status: Completed true * Provider:?Stephanie Bedoya DPM Date:?2023 Generated for Jessie chapa/Abilio/Gin on:?03/21/2024 04:32 PM EST History and Physical Notes * [...] EDEMA (C): 2/4, pitting, Left, Leg(s), Ankle(s) AMPUTATION, NON-TRAUMATIC (A): AKA right Nails NAILS are: elongated,overgr own,dystrophic,greater than 3mm thick,discolored and friable with crumbly malodorous subungual debris, with dull to no pain on palpation due to neuropathy, 1-5 Left foot
== END 2024-03-21 14:47 | disposition home or self-care (01) ==
PROVIDERS: PCP Internal Medicine; Visit Provider Internal Medicine Hypertension Specialist
DX: E11.22 Type 2 diabetes mellitus with diabetic chronic kidney disease (principal); N18.30 Chronic kidney disease, stage 3 unspecified; I35.0 Nonrheumatic aortic (valve) stenosis; D64.89 Other specified anemias; E78.00 Pure hypercholesterolemia, unspecified
CPT/HCPCS: 99214

== ENCOUNTER 2024-03-23 10:38 | Outpatient (AMB) | payer MEDICARE, OTHER, SELFPAY ==
[2024-03-23 10:49] LABS: Prothrombin Time Whole Bld POC 26.5 sec (11.1-13.5); ~PT, ~INR - Anti Coag Clinic 2.2 (0.9-1.1)
--- OUTSIDE RECORDS SUMMARY | 2024-03-23 11:03 | XMS_ITS ---
Author Organization [facility] Address [address] [place] [address] Care Team Providers Care Speech Language Pathology Assistant Name Role Phone Flakita Stewart Primary Care Provider Unavailabl e Black, Stephanie Unavailable [phone] Allergies Allergen (clinical drug ingredient) Drug/Non Drug [...] Ordered Date Performed Result Body Sit e 14482-NLCUTQM NAIL, 1-5 09/03/2023 N/A 76912-XIYM SKIN LESIONS, 2 TO 4 09/03/2023 N/A Encounters Encounter Location Date Provider Diagnosis [facility] [address] [address] 09/03/2023 Stephanie Bedoya Tinea unguium B35.1 and Type 2 diabetes mellitus with diabetic polyneuropathy E11.42 Assessments Encounter Date Diagnosis (ICD Code) Assessment Notes Treatment Notes Treatment Clinical Notes Section Notes 09/03/2023 Tinea unguium (ICD-10 - B35.1) 09/03/2023 Type 2 diabetes mellitus with diabetic polyneuropathy (ICD-10 - E11.42) Plan Of Treatment Pending Test Test Name Order Date 54690-YNFNYBH NAIL, 1-5 09/03/2023 02489-CBZF SKIN LESIONS, 2 TO 4 09/03/19 24 Next Appt Details Follow Up: prn, Reason: Provider Name:Stephanie Miller Aureliano , 08/15/2024 11:00:00 AM, [address] [place] [address] [place], [address], Procedure Notes * Category Sub-Category Detail Notes Keratoma Treatment Parring or Cutting o f Benign Hyperkeratotic Lesion(s) 93949 (2-4 Lesions) - The Benign hyperkeratotic lesions, [...] as necessary. Patient chooses, no pharmaceutical tx (35250) Progress Notes * Florentino BEAN RDOB: 8 (87 yo M)Acc No.[id number]:09/03/2023 Progress Note Patient:?Florentino Bean R Provider:?Stephanie Bedoya DPM :1935???Age:87 Y???Sex:Male Darryl e:09/03/2023 Address:[address] [place], [place] [id number] Pcp:Flakita Stewart Subjective: * Chief Complaints: * [...] E11.42 (Primary)? Plan: * Treatment: 2.?Tinea unguium?Procedure: 23305-MAYCHGL NAIL, 1-5 * Procedures:?Debride Nails 1-5:?Procedure:?Nail debridement performed extensively to reduce/remove overall nail length and girth, subungual debris, and necrotic tissue, by manual and electrical means by use of a nail nipper and/or dremel, to more viable healthy nail plate or bed tissue 1-5. Silver nitrate used for any petechial bleeding as necessary. Patient chooses, no pharmaceutical tx (51063).?Keratoma Treatment:?Parring or Cutting of Benign Hyperkeratotic Lesion(s)?58176 (2-4 Lesions) - The Benign hyperkeratotic lesions, as described above were pared, and/or cut utilizing a sterile #15 blade, tissue nippers, and/or dremel.? * Procedure Codes:?20778 DEBRI DE NAIL, 1-5, Modifiers: Q7 77482 TRIM SKIN LESIONS, 2 TO 4, Modifiers: Q7 * Follow Up:?prn * Images: * Sign off status: Completed true * Provider:?Stephanie Bedoya DPM Date:?2023 Generated for Printi ng/Fagómezg/eTransmitting on:?03/23/2024 11:02 AM EST History and Physical Notes * [...]
--- OUTSIDE RECORDS SUMMARY | 2024-03-23 11:03 | XMS_ITS ---
Author Organization [facility] Address [address] [place] [address] Care Team Providers Care Combatant Diver Officer Name Role Phone Flakita Stewart Primary Care Provider Stephanie Pagan [phone] Jonh Encounters Encounter Location Date Provider Diagnosis [address] [address] 12/14/2023 Stephanie Bedoya Plan Of Treatment Next Appt Details Provider Name:Stephanie Miller Bedoya , 08/15/2024 11:00:00 AM, [address] [place] [address], [phone], Progress Notes * Florentino BEAN RDOB: (88 yo M)Acc No.[id number]:12/14/2023 Progress Note Patient:?Florentino BEAN Provider:?Stephanie Bedoya DPM :1935???Age:88 Y???Sex:Male Darryl e:12/14/2023 Address:[address] [place] [address] Pcp:Flakita Stewart Subjective: * Chief Complaints: * [...] Bedoya DPM Date:?2023 Generated for Jessie chapa/Abilio/Gin on:?03/23/2024 11:02 AM EST
--- OUTSIDE RECORDS SUMMARY | 2024-03-23 11:03 | XMS_ITS | Patient Health Record ---
Author Organization [facility] Address [address] [place] [address] Care Team Providers Care Helmet Coverer Name Role Phone Flakita Stewart Primary Care Provider Unavailabl e Black, Stephanie Unavailable [phone] Allergies Allergen (clinical drug ingredient) Drug/Non Drug [...] Polyneuropathy due to type 2 diabetes mellitus (856572483) Type 2 diabetes mellitus with diabetic polyneuropathy (E11.42) Active confirmed Problem Ulcer of toe of right foot (disorder) (928793160393384 01) Skin ulcer of toe of right foot, limited to breakdown of skin (L97.511) Active confirmed Problem 336277272 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) Active confirmed Problem Ulcer of toe of left foot (disorder) (727491812325722 02) Skin ulcer of toe of left [...] Ordered Date Performed Result Body Sit e 88589-KHWINPH NAIL, 1-5 05/21/2023 N/A 98674- Debride <25 sq cm 05/21/2023 N/A 66417-QMDW SKIN LESIONS, 2 TO 4 05/21/2023 N/A 12194-MTPIGQU NAIL, 1-5 09/03/2023 N/A 43728-TSRX SKIN LESIONS, 2 TO 4 09/03/2023 N/A 93184-FVEAPGF NAIL, 1-5 02/15/2024 N/A 36158-CPHH SKIN LESIONS, 2 TO 4 02/15/2024 N/A Encounters Encounter Location Date Provider Diagnosis [address] [address] 05/21/2023 Stephanie Black Type 2 diabetes mellitus with diabetic polyneuropathy E11.42 ; Skin ulcer of toe of left foot, limited to breakdown of skin L97.521 and Tinea unguium B35.[address] [address] 09/03/2023 Stephanie Black Tinea unguium B35.1 and Type 2 diabetes mellitus with diabetic polyneuropathy E11.[address] [address] 02/15/2024 Stephanie Black Tinea unguium B35.1 and [...] Treatment Pending Test Test Name Order Date 33421-QCAQFST NAIL, 6 OR MORE 06/14/2020 50118-OTCGSIZ NAIL, 6 OR MORE 12/31/2020 13090-JGNHIME NAIL, 1-5 09/13/2020 72759-ZKJIBWF NAIL, 1-5 01/23/2020 27511-WRQCKFE NAIL, 1-5 04/15/2021 27705-CTSAMQF NAIL, 1-5 07/15/2021 30722-AMOKTML NAIL, 1-5 10/14/2021 39030-SXGSYHR NAIL, 1-5 01/23/2022 78354-HQNNAKN NAIL, 1-5 04/28/2022 24302-GHNILNJ NAIL, 1-5 07/28/2022 11908-FDQHQFY NAIL, 1-5 11/10/2022 60680-LUPKLEI NAIL, 1-5 02/16/2023 73952-QSPXLDK NAIL, 1-5 05/21/2023 34192-QOFPVYQ NAIL, 1-5 09/03/2023 71613-NDKVHHV NAIL, 1-5 02/15/2024 37584-Khzzavkl Plate 02/16/2023 96576- Debride <25 sq cm 05/21/2023 19766-HBAS SKIN LESIONS, 2 TO 4 05/21/19 24 54578-KYWL SKIN LESIONS, 2 TO 4 09/03/19 24 58755-DWZW SKIN LESIONS, 2 TO 4 02/15/20 24 10993-DMED SKIN LESIONS, 2 TO 4 01/23/20 20 68592-CMNS SKIN LESIONS, 2 TO 4 02/17/20 23 82804-DEMN SKIN LESIONS, 2 TO 4 11/11/19 23 53745-FYFX SKIN LESIONS, 2 TO 4 07/29/19 23 83945-STYA SKIN LESIONS, 2 TO 4 04/28/19 23 52711-UNIN SKIN LESIONS, 2 TO 4 01/24/20 22 84873-NWTT SKIN LESIONS, 2 TO 4 08/01/20 22 79753-GEFB SKIN LESIONS, 2 TO 4 07/16/19 22 45106-NMGV SKIN LESIONS, 2 TO 4 06/15/19 21 76312-MKOR SKIN LESIONS, 2 TO 4 09/14/19 21 63271-ZXCW SKIN LESIONS, 2 TO 4 01/01/20 21 94780-UNGQ SKIN LESIONS, 2 TO 4 04/15/19 22 HEMOGLOBIN A1C (GLYCOHEMOGLOBIN) 020 Next Appt Details Provider Name:Stephanie Bedoya , 08/15/2024 11:00:00 AM, [address] [place], [address], Insurance Providers Payer Name Payer Address Payer Phone Subscriber Number Group Number Insured Name Patient Relationship to Insured Coverage Start Date Coverage End Date Medicare National Govt [facility] [address] [place] [address] [id number] Florentino Bean Self - patient is the insured [employer] ([facility] [address] [place] [address] [id number] Florentino Bean Self - patient is the insured 0 Medical (General) History Medical History History ICD Code CAD (Cholesterol) Cancer Cataracts Diabetic Gout Heart disease High blood pressure Lung disease Poor circulation Psoriasis Warts Measles Chicken pox Vascular grafts Transfusions Surgical History Surgery Date(Month/Year) right above the knee amputation 2004 parotidectomy 05/30/2015 Hospitalization History Reason Date(Month/Year) [facility] [place] 06/06 [facility] - Knee Amputation 200 4
--- NOTE | 2024-03-23 11:07 | MHC.OFFVISCO ---
Intake Intake Visit Reasons: Anticoagulation Allergies lisinopril [LISINOPRIL] Allergy (Unknown, Verified 03/23/24 10:43) HIVES Medication List - Last Reconciled 03/23/24 by Zeenat Ball RN albuterol sulfate 90 mcg/actuation 2 puffs inhalation Q4H PRN amlodipine 10 mg PO DAILY 90 days atorvastatin 40 mg PO DAILY blood sugar diagnostic (FreeStyle Lite Strips) ONCE A DAY blood-glucose meter (FreeStyle Lite Meter kit) ONCE A DAY cholecalciferol (vitamin D3) 50 mcg PO DAILY dapagliflozin propanediol (Farxiga) 5 mg PO DAILY docusate sodium (Colace) 100 mg PO BEDTIME fluticasone propion-salmeterol 500-50 mcg/dose (Wixela Inhub) 1 inh inhalation BID lancets As directed lancets (FreeStyle Lancets) ONCE A DAY losartan 25 mg PO DAILY [MANUAL WHEELCHAIR As directed] metoprolol tartrate 50 mg PO BID tamsulosin 0.4 mg PO BEDTIME 90 days tramadol 50 mg PO TID PRN 30 days umeclidinium 62.5 mcg/actuation (Incruse Ellipta) 1 inh PO BEDTIME warfarin 2.5 mg See Protocol PO 6XW warfarin 5 mg See Protocol PO QWEEK Nursing Note NO CP,SOB,DIET/MED CHANGES,FALLS OR SX OF BLEEDING. WILL CONTINUE PRESENT DOSE AND FOLLOW-UP IN 3 WEEKS. GOOD UNDERSTANDING OF DOSING INSTR. BY PT.AND SPOUSE. DUE TO LOW HGB(9.8) PT.WILL BEGIN TO HAVE MORE DARK GREENS PER MD. DIET CHANGES DISCUSSED WITH AND PT. WILL BALANCE GREENS BETTER WITH REDS Anti-Coag Initial Assessment Social Hx Patient Tobacco Use Status: Former Tobacco user Tobacco use type: Cigarette alcohol intake: never Coding Level of Care Code Est Patient Level 1 Diagnoses Current use of anticoagulant therapy Z79.01 Assessment & Plan Assessment & Plan (1) Current use of anticoagulant therapy: Code(s): Z79.01 - longterm (current) use of anticoagulants Category: Medical
== END 2024-03-23 11:17 | disposition home or self-care (01) ==
LOC: HO.ACS 10:38
PROVIDERS: PCP Internal Medicine; Visit Provider Internal Medicine
DX: Z79.01 Long term (current) use of anticoagulants (principal)

== ENCOUNTER → 2024-03-23 10:38 | Outpatient (BNVA) | payer MEDICARE, OTHER, SELFPAY | PROVIDERS: PCP Internal Medicine; Visit Provider Internal Medicine | DX: I48.0 Paroxysmal atrial fibrillation (principal); Z79.01 Long term (current) use of anticoagulants; Z51.81 Encounter for therapeutic drug level monitoring | CPT/HCPCS: 85610; 99211 ==

== ENCOUNTER 2024-04-12 11:04 | Outpatient (AMB) | payer MEDICARE, OTHER, SELFPAY ==
--- NOTE | 2024-04-12 11:38 | MHC.OFFVISCO ---
Intake Intake Visit Reasons: Anticoagulation Allergies lisinopril [LISINOPRIL] Allergy (Unknown, Verified 04/12/24 11:23) HIVES Medication List - Last Reconciled 04/12/24 by Taya Theodore RN albuterol sulfate 90 mcg/actuation 2 puffs inhalation Q4H PRN amlodipine 10 mg PO DAILY 90 days atorvastatin 40 mg PO DAILY blood sugar diagnostic (FreeStyle Lite Strips) ONCE A DAY blood-glucose meter (FreeStyle Lite Meter kit) ONCE A DAY cholecalciferol (vitamin D3) 50 mcg PO DAILY dapagliflozin propanediol (Farxiga) 5 mg PO DAILY docusate sodium (Colace) 100 mg PO BEDTIME fluticasone propion-salmeterol 500-50 mcg/dose (Wixela Inhub) 1 inh inhalation BID lancets As directed lancets (FreeStyle Lancets) ONCE A DAY losartan 25 mg PO DAILY [MANUAL WHEELCHAIR As directed] metoprolol tartrate 50 mg PO BID tamsulosin 0.4 mg PO BEDTIME 90 days tramadol 50 mg PO TID PRN 30 days umeclidinium 62.5 mcg/actuation (Incruse Ellipta) 1 inh PO BEDTIME warfarin 2.5 mg See Protocol PO 6XW warfarin 5 mg See Protocol PO QWEEK Nursing Note Amb to [facility] using walker, accomp by spouse feeling tired from the walk [facility] there were no wheelchairs avaiable Medications and supplements reviewed No changes in health, diet, medications, or supplements, sts he had a bloody nose yesterday and pointed out a bruise on Right ring finger bloody nose resolved itself after a few minutes and tissue up nose sts she gave him cooked spinach yesterday as they are trying to increase iron in diet reviewed risks of bloody noses while taking warfarin, treatment options Bleeding, bruising, clotting discussed INR: 1.8 below therapeutic range Dose: increase dose today to 5mg (vs 2.5mg) then resume usual dosing 5mg x 1 day and 2.5mg x 6 days Nutritional guidance given: no greens today, balance greens and reds in diet and be aware of the power cooked spinach has on lowering INR reviewed food list and reviewed option of using raw spinach leaves in iceburg lettuce salads 2-3 times a week to increase iron but not drop INR F/U INR: 2 weeks Patient and verbalizes understanding of instructions given Anti-Coag Initial Assessment Social Hx Patient Tobacco Use Status: Former Tobacco user Tobacco use type: Cigarette alcohol intake: never Coding Level of Care Code Est Patient Level 1 Diagnoses Current use of anticoagulant therapy Z79.01 Time Spent (min) 15 Results AMB INR Fingerstick AMB INR Fingerstick 1.8 Last Edit by Taya Theodore RN on 04/12/24 11:35 interface failure Assessment & Plan Assessment & Plan (1) Current use of anticoagulant therapy: Code(s): Z79.01 - intermediate manager (current) use of anticoagulants Category: Medical
[2024-04-12 11:55] LABS: Prothrombin Time Whole Bld POC 21.4 sec (11.1-13.5); ~PT, ~INR - Anti Coag Clinic 1.8 (0.9-1.1)
--- OUTSIDE RECORDS SUMMARY | 2024-04-12 12:19 | XMS_ITS | Continuity of Care Document ---
Author Organization [place] - [facility], [facility] Address [address] [place] [address] Assessment Encounter Date Assessment Date Assessment LastModified by Organization Details LastModified Time 03/15/2024 03/15/2024 No evidence of disease on examination today. Cancer surveillance in 12 months was recommended. [email or web address] Not available 03/14/2024 10:11:34 Plan of Treatment Reminders Order Date Submit Date Provider Last Modified By Organization Details Last Modified Time Details Appointments Establish ed 15 2024 01:00P M MAHAD CONLEY MD Not available Not available Not available Lab None recorded. Referral None recorded. Procedures None recorded. Surgeries None recorded. Imaging None recorded. Medication Orders None recorded. Patient TargetsNo targets recorded. Patient InstructionsNo instructions recorded. Reason for Referral None Reported. 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 2015 MAHAD CONLEY MD [address] [place] [address], [address] , [place] - [facility] 4 10:09:47 History of malignant neoplasm of digestive organ [id number] 932026 Active 2015 Personal history of malignant neoplasm of other digestive organs; Note: Changed from C07 to Z85.09 (03/21/2019 12:19 PM) , Changed from R22.0 to R22.1 ( 6 8:48 AM) , Changed from R22.1 to C07 ( 6 8:49 AM) , Date Diagnosed : 04/26/2015 10:05 AM (R22.0) Not Available [facility] 4 03:22:12 Postopera tive follow-up visit Active 2015 Post op; Note: Date Diagnosed : 06/01/2015 11:22 AM (V67.00) Not Available [facility] 4 03:22:12 Follow-up visit Active 2019 Encounter for follow-up examinati on after completed treatment for malignant neoplasm; Note: Date Diagnosed : 09/13/2019 4:00 PM (Z08) Encount er for follow-up examinati on after completed treatment for condition s other than malignant neoplasm; Note: Date Diagnosed : 06/01/2015 2:15 PM (Z09) ; Start Date : 6 Not Available [facility] 4 03:22:12 History of malignant neoplasm of parotid gland 76952175554 9102 Active 2023 Primary tumor location: right parotid SCCA, 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 Medical Equipment None Reported. Allergies Allergen ID Allergen Name Allergen Category Reaction Reaction Severity Criticality Documentation Date Start Date Code Code System Note Provider Name and Address Organization Details Recorded Time 600032 lisinopri l medicatio n other Not available Not available 07/28/2023 02379 RxNorm React ion: unkno wn, unspe cifie d;; Not Available [facility] 4 01:24:44 Medications Name Sig Start Date Stop Date Status Note LastModified by Organization Details LastModified Time losartan 50 mg tablet active Not Available Not Available Not Available Anti-Diar rheal (loperami de) 2 mg tablet TAKE 1 TABLET 2 TIMES PER DAY NEEDED FOR DIARRHEA FOR 3 HOURS active Not Available Not Available No t Available atorvasta tin 40 mg tablet TAKE 1 TABLET BY MOUTH EVERY DAY active Not Available Not Available No t Available metformin 500 mg tablet active Not Available Not Available Not Available doxycycli ne hyclate 100 mg capsule 03/21 completed Medicati on ID: [id number] D uration Value: 5 Reason: () Brand Name: doxycycl ine hyclate Send Method: E-Prescr ibed Sub s Allowed: subs OK Speci al Instruct ion: TAKE ONE CAPSULE BY MOUTH TWICE A DAY FOR 5 DAYS Med [facility]: doxycycl ine hyclate Not Available Not Available Not Available FreeStyle Lancets 28 gauge TEST ONCE A DAY active Not Available Not Available No t Available terazosin 1 mg capsule 03/17 completed Medicati on ID: [id number] D uration Value: 90 Brand Name: terazosi n Send Method: E-Prescr ibed Sub s Allowed: subs OK Medic ationGen ericName : terazosi n Not Available Not Available Not Available ciproflox acin 500 mg tablet TAKE 1 TABLET ORALLY DAILY FOR 5 DAYS active Not Available Not Available No t Available tramadol 50 mg tablet TAKE 1 TABLET BY MOUTH 3 TIMES A DAY NEEDED FOR PAIN active Not Available Not Available No t Available tamsulosi n 0.4 mg capsule TAKE 1 CAPSULE BY MOUTH AT BEDTIME active Not Available Not Available No t Available amlodipin e 10 mg tablet TAKE 1 TABLET BY MOUTH EVERY DAY active Not Available Not Available No t Available cephalexi n 500 mg capsule active Medicati on ID: [id number] B rand Name: cephalex in Send Method: E-Prescr ibed Sub s Allowed: subs OK Medic ationGen ericName : cephalex in Not Available Not Available Not Available warfarin 5 mg tablet TAKE 1 TABLET BY MOUTH EVERY THURSDAY, Y AND THURSDAY AT 6PM active Not Available Not Available No t Available losartan 25 mg tablet TAKE 1 TABLET BY MOUTH EVERY DAY active Not Available Not Available No t Available metoprolo l tartrate 50 mg tablet TAKE 1 TABLET BY MOUTH TWICE A DAY active Not Available Not Available No t Available mupirocin 2 % topical ointment 03/21 completed Medicati on ID: [id number] D uration Value: 7 Reason: () Brand Name: mupiroci n Send Method: E-Prescr ibed Sub s Allowed: subs OK Speci al Instruct ion: APPLY TWICE A DAY TO BIOPSY SITES UNTIL HEALED M edicatio Rickie Name: mupiroci n Not Available Not Available Not Available albuterol sulfate HFA 90 mcg/actua tion aerosol inhaler INHALE 2 PUFFS EVERY 4 HOURS NEEDED FOR WHEEZE OR FOR SHORTNES S OF BREATH active Not Available Not Available No t Available Percocet 5 mg-325 mg tablet 1-2 tablet by mouth 03/21 completed Medicati on ID: [id number] P jasen d By Name: Andi Travis nd Name: Percocet Send Method: E-Prescr ibed Sub s Allowed: subs OK Medic ationGen ericName : Percocet Not Available Not Available Not Available ketoconaz ole 2 % topical cream 03/17 completed Medicati on ID: [id number] D uration Value: 15 Brand Name: ketocona zole Sen d Method: E-Prescr ibed Sub s Allowed: subs OK Speci al Instruct ion: APPLY TWICE A DAY TO RED SCALY AREAS OF FACE AND EARS Med icationG enericNa me: ketocona zole Not Available Not Available Not Available glipizide 5 mg tablet active Not Available Not Available Not Available neomycin 3.5 mg/g-poly myxin B 10,000 unit/g-de xameth 0.1 % eye oint 03/21 completed Medicati on ID: [id number] D uration Value: 7 Reason: () Brand Name: neomycin -polymyx in B-dexame th Send Method: E-Prescr ibed Sub s Allowed: subs OK Speci al Instruct ion: APPLY 1/4 INCH TO AFFECTED EYELID AT BEDTIME Medicati onGeneri cName: neomycin -polymyx in B-dexame th Not Available Not Available Not Available metoprolo l tartrate 25 mg tablet 03/17 completed Medicati on ID: [id number] D uration Value: 90 Brand Name: metoprol ol tartrate Send Method: E-Prescr ibed Sub s Allowed: subs OK Speci al Instruct ion: 8-15 TAKE 1 TABLET TWICE DAILY ORALLY 90 Medic ationGen ericName : metoprol ol tartrate Not Available Not Available Not Available Spiriva with HandiHale r 18 mcg and inhalatio n capsules 03/17 completed Medicati on ID: [id number] D uration Value: 90 Brand Name: Spiriva with HandiHal er Send Method: E-Prescr ibed Sub s Allowed: subs OK Medic ationGen ericName : Spiriva with HandiHal er Not Available Not Available Not Available hydrochlo rothiazid e 12.5 mg tablet TAKE 1 TABLET BY MOUTH DAILY active Not Available Not Available No t Available FreeStyle Lite Meter kit USE DIRECTED active Not Available Not Available No t Available FreeStyle Lite Strips TEST ONCE A DAY active Not Available Not Available No t Available Farxiga 5 mg tablet TAKE 1 TABLET BY MOUTH EVERY DAY active Not Available Not Available No t Available Incruse Ellipta 62.5 mcg/actua tion powder for inhalatio n active Not Available Not Available Not Available Wixela Inhub 500 mcg-50 mcg/dose powder for inhalatio n USE 1 INHALATI ON ORALLY TWICE DAILY active Not Available Not Available No t Available Vitals Date Recorded Body height Body mass index (BMI) Body weight Provider Name and Address Organization Details Last Updated DateTime 03/15/2024 182.88 cm 23.3 kg/m2 07287.89 g Nazanin Davis [place] - [facility] 03/15/2024 13:11:30 Social History None recorded. Functional Status None recorded. Mental Status None recorded. Family History Nothing Reported. Medical History No medical history recorded. Past Encounters Encounter ID Performer Location Encounter Start Date Encounter Closed Date Diagnosis/Indication Diagnosis SNOMED-CT Code Diagnosis ICD10 Code Diagnosis Note [id number] MAHAD CONLEY MD [facility] [address] [address] 03/15/2024 12:48:06 03/15/2024 13:31:30 History of malignant neoplasm of parotid gland 4540890799 81054 Z85.818 Weakness o f face muscles 49001241 R29.810 Health Concerns Section Related Observation LastModified by Organization Shelly cortes LastModified Time None Recorded Concern Status LastModified by Organization Details LastModified Time None Recorded Payers Encounter Date Sequence Insurance Name Policy Number Policy [place] Covered Member ID [place] Member ID Guarantor Name 03/15/2024 2 [facility] [id number] Florentino Hiltonmaureen [id number] Florentino Heath [place] 03/15/2024 1 [place]IC[place]: [employer] Florentino Bean [id number] Florentino Ivana [place] Notes Date Note Type Note Provider Name and Address Organization Details Recorded Time 03/15/2024 text/html Primary tumor location: right parotid SCCA, metastatic from right adventist skinTreatment: right parotid neck dissection, sac upper branches facialDate of treatment completion:Oncology team: Barry Conley/Dr Alvarez no health changeswas offered left eye repair of ectropion - did not pursue previously but interested now MAHAD CONLEY MD [address] [place] [address], [place], [address], [facility] - [facility] 03/15/2024 13:28:40
--- OUTSIDE RECORDS SUMMARY | 2024-04-12 12:19 | XMS_ITS ---
Author Organization [facility] Address [address] [place] [address] Care Team Providers Care Shingle Cutter Name Role Phone Flakita Stewart Primary Care Provider Stephanie Pagan [phone] John Encounters Encounter Location Date Provider Diagnosis [address] [address] 12/14/2023 Stephanie Bedoya Plan Of Treatment Next Appt Details Provider Name:Stephanie Miller Bedoya , 08/15/2024 11:00:00 AM, [address] [place] [address], [phone], Progress Notes * Florentino BEAN RDOB: (88 yo M)Acc No.[id number]:12/14/2023 Progress Note Patient:?Florentino BEAN Provider:?Stephanie Bedoya DPM :1935???Age:88 Y???Sex:Male Darryl e:12/14/2023 Address:[address] [place] [address] Pcp:Flakita Stewart Subjective: * Chief Complaints: * [...] Bedoya DPM Date:?2023 Generated for Jessie chapa/Abilio/Gin on:?04/12/2024 12:19 PM EST
--- OUTSIDE RECORDS SUMMARY | 2024-04-12 12:20 | XMS_ITS ---
Author Organization [facility] Address [address] [place] [address] Care Team Providers Care Assistant Professor Surgical Technology Name Role Phone Flakita Stewart Primary Care Provider Unavailabl e Black, Stephanie Unavailable [phone] Allergies Allergen (clinical drug ingredient) Drug/Non Drug [...] Ordered Date Performed Result Body Sit e 02083-EJNVSOQ NAIL, 1-5 02/15/2024 N/A 98967-PNSE SKIN LESIONS, 2 TO 4 02/15/2024 N/A Encounters Encounter Location Date Provider Diagnosis [facility] [address] [address] 02/15/2024 Stephanie Bedoya Tinea unguium B35.1 and Type 2 diabetes mellitus with diabetic polyneuropathy E11.42 Assessments Encounter Date Diagnosis (ICD Code) Assessment Notes Treatment Notes Treatment Clinical Notes Section Notes 02/15/2024 Tinea unguium (ICD-10 - B35.1) 02/15/2024 Type 2 diabetes mellitus with diabetic polyneuropathy (ICD-10 - E11.42) Plan Of Treatment Pending Test Test Name Order Date 14153-SDMSOPL NAIL, 1-5 02/15/2024 20531-CHFN SKIN LESIONS, 2 TO 4 02/15/20 24 Next Appt Details Follow Up: prn, Reason: Provider Name:Stephanie Bedoya , 08/15/2024 11:00:00 AM, [address] [place] [address], [phone], Procedure Notes * Category Sub-Category Detail Notes Keratoma Treatment Parring or Cutting o f Benign Hyperkeratotic Lesion(s) (-56) 2-4 Lesions - The Benign hyperkeratotic lesions, (3) in total, locations as stated and described in exam, were pared, and/or cut utilizing a sterile 15 blade, tissue nippers, and/or power dremel instrumentation - 24207 Debride Nails 1-5 Procedure: Performance of this nail treatment by a nonprofessional would put this patients foot and overall health at risk. Therefore, debridement to affected nail(s), as described in exam, was performed extensively to reduce/remove overall nail length, girth, thickness, subungual debris, and necrotic tissue, by manual and/or electrical means through the use of a nail nipper and/or dremel-type jewel grinder, to a more viable healthy nail [...] necessary to maintain effective symptomatic relief - 60234 Progress Notes * Florentino BEAN RDOB: 8 (88 yo M)Acc No.[id number]:02/15/2024 Progress Note Patient:?Florentino BEAN Provider:?Stephanie Bedoya DPM :1935???Age:88 Y???Sex:Male Darryl e:02/15/2024 Address:[address] [place], [place] [phone] Pcp:Flakita Stewart Subjective: * Chief Complaints: * [...] E11.42 (Primary)??? Plan: * Treatment: 2.?Tinea unguium?Procedure: 19532-XGCPTLT NAIL, 1-5 * Procedures:?Debride Nails 1-5:?Procedure:?Performance of this nail treatment by a nonprofessional would put this patients foot and overall health at risk. Therefore, debridement to affected nail(s), as described in exam, was performed extensively to reduce/remove overall nail length, girth, thickness, subungual debris, and necrotic tissue, by manual and/or electrical means through the use of a nail nipper and/or dremel-type jewel grinder, to a more viable healthy nail [...] necessary to maintain effective symptomatic relief - 38812.?Keratoma Treatment:?Parring or Cutting of Benign Hyperkeratotic Lesion(s)?(-56) 2-4 Lesions - The Benign hyperkeratotic lesions, (3) in total, locations as stated and described in exam, were pared, and/or cut utilizing a sterile 15 blade, tissue nippers, and/or power dremel instrumentation - 63540.? * Procedure Codes:?70119 DEBRI DE NAIL, 1-5, Modifiers: Q7 31079 TRIM SKIN LESIONS, 2 TO 4, Modifiers: Q7 * Follow Up:?prn * Images: * Sign off status: Completed true * Provider:?Stephanie Bedoya DPM Date:?2023 Generated for Jessie chapa/Abiloi/Gin on:?04/12/2024 12:19 PM EST History and Physical Notes * [...]
--- OUTSIDE RECORDS SUMMARY | 2024-04-12 12:20 | XMS_ITS | Patient Health Record ---
Author Organization [facility] Address [address] [place] [address] Care Team Providers Care Cloth Brushing And Sueding Supervisor Name Role Phone Flakita Stewart Primary Care Provider Unavailabl e Black, Stephanie Unavailable [phone] Allergies Allergen (clinical drug ingredient) Drug/Non Drug [...] Polyneuropathy due to type 2 diabetes mellitus (167943836) Type 2 diabetes mellitus with diabetic polyneuropathy (E11.42) Active confirmed Problem Ulcer of toe of right foot (disorder) (152594067074904 01) Skin ulcer of toe of right foot, limited to breakdown of skin (L97.511) Active confirmed Problem 733285410 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) Active confirmed Problem Ulcer of toe of left foot (disorder) (181039194111910 02) Skin ulcer of toe of left [...] Ordered Date Performed Result Body Sit e 63814-FDGMTHF NAIL, 1-5 05/21/2023 N/A 41356- Debride <25 sq cm 05/21/2023 N/A 65864-VVZW SKIN LESIONS, 2 TO 4 05/21/2023 N/A 19013-GGYCOYH NAIL, 1-5 09/03/2023 N/A 24308-RNOF SKIN LESIONS, 2 TO 4 09/03/2023 N/A 10995-PWIPJAH NAIL, 1-5 02/15/2024 N/A 54838-UQLL SKIN LESIONS, 2 TO 4 02/15/2024 N/A Encounters Encounter Location Date Provider Diagnosis [address] [address] 05/21/2023 Stephanie Black Type 2 diabetes mellitus with diabetic polyneuropathy E11.42 ; Skin ulcer of toe of left foot, limited to breakdown of skin L97.521 and Tinea unguium B35.[address] [address] 09/03/2023 Stephanie Black Tinea unguium B35.1 and Type 2 diabetes mellitus with diabetic polyneuropathy E11.[address] [address] 02/15/2024 Stephanie Black Tinea unguium B35.1 and [...] Treatment Pending Test Test Name Order Date 81182-DNYEMTE NAIL, 6 OR MORE 06/14/2020 30163-HXAVQZE NAIL, 6 OR MORE 12/31/2020 59859-VMMYXHO NAIL, 1-5 09/13/2020 76935-XTRQDNC NAIL, 1-5 01/23/2020 69230-EEMURCL NAIL, 1-5 04/15/2021 60455-KLAHHLO NAIL, 1-5 07/15/2021 18985-AUDOUKR NAIL, 1-5 10/14/2021 54055-HHDGFSB NAIL, 1-5 01/23/2022 88497-TWRBVAU NAIL, 1-5 04/28/2022 55883-YSFUDRI NAIL, 1-5 07/28/2022 00973-NGMXVRR NAIL, 1-5 11/10/2022 28968-JNMSAXZ NAIL, 1-5 02/16/2023 75497-CIFLSQA NAIL, 1-5 05/21/2023 17571-DMKACQC NAIL, 1-5 09/03/2023 19995-ILGUJBS NAIL, 1-5 02/15/2024 16594-Skttkaxo Plate 02/16/2023 70175- Debride <25 sq cm 05/21/2023 52066-HHEH SKIN LESIONS, 2 TO 4 05/21/19 24 36671-QIOA SKIN LESIONS, 2 TO 4 09/03/19 24 48161-NVEK SKIN LESIONS, 2 TO 4 02/15/20 24 56609-KFWI SKIN LESIONS, 2 TO 4 01/23/20 20 63657-SJOQ SKIN LESIONS, 2 TO 4 02/17/20 23 57149-OGSC SKIN LESIONS, 2 TO 4 11/11/19 23 93617-CZPA SKIN LESIONS, 2 TO 4 07/29/19 23 62591-WIIB SKIN LESIONS, 2 TO 4 04/28/19 23 75789-QXGL SKIN LESIONS, 2 TO 4 01/24/20 22 12554-GWJQ SKIN LESIONS, 2 TO 4 08/01/20 22 26745-CKXY SKIN LESIONS, 2 TO 4 07/16/19 22 14740-QMDK SKIN LESIONS, 2 TO 4 06/15/19 21 23987-LWZG SKIN LESIONS, 2 TO 4 09/14/19 21 79743-CRWW SKIN LESIONS, 2 TO 4 01/01/20 21 27518-JGWE SKIN LESIONS, 2 TO 4 04/15/19 22 HEMOGLOBIN A1C (GLYCOHEMOGLOBIN) 020 Next Appt Details Provider Name:Stephanie Bedoya , 08/15/2024 11:00:00 AM, [address] [place], [address], Insurance Providers Payer Name Payer Address Payer Phone Subscriber Number Group Number Insured Name Patient Relationship to Insured Coverage Start Date Coverage End Date Medicare National Govt [facility] [address] [place] [address] [id number] Florentino Bean Self - patient is the insured [employer] [facility] [address] [place] [address] [phone] [id number] Florentino Bean Self - patient is the insured 0 Medical (General) History Medical History History ICD Code CAD (Cholesterol) Cancer Cataracts Diabetic Gout Heart disease High blood pressure Lung disease Poor circulation Psoriasis Warts Measles Chicken pox Vascular grafts Transfusions Surgical History Surgery Date(Month/Year) right above the knee amputation 2004 parotidectomy 05/30/2015 Hospitalization History Reason Date(Month/Year) [facility] [place]- Covid-19 06/06 [facility] - Knee Amputation 200 4
--- OUTSIDE RECORDS SUMMARY | 2024-04-12 12:20 | XMS_ITS | Data Portability ---
Author Organization [place] - [facility], Allergy Address [address] [place] [phone] Assessment Encounter Date Assessment Date Assessment LastModified [...] Details Recorded Time Weakness of face muscles [id number] Active 2018 sac upper branches facial nerve during parotid resection 2015 MAHAD CONLEY MD [address] [place] [address], [place], [address] [place] - [facility] 4 10:09:47 History of malignant neoplasm of digestive organ [id number] 758693 Active 2015 Personal history of malignant neoplasm of other digestive organs; Note: Changed from C07 to Z85.09 (03/21/2019 12:19 PM) , Changed from R22.0 to R22.1 ( 6 8:48 AM) , Changed from R22.1 to C07 ( 6 8:49 AM) , Date Diagnosed : 04/26/2015 10:05 AM (R22.0) Not Available [facility] 4 03:22:12 Postopera tive follow-up visit Active 2015 Post op; Note: Date Diagnosed : 06/01/2015 11:22 AM (V67.00) Not Available [facility] 4 03:22:12 Follow-up visit Active 2019 Encounter for follow-up examinati on after completed treatment for malignant neoplasm; Note: Date Diagnosed : 09/13/2019 4:00 PM (Z08) Encount er for follow-up examinati on after completed treatment for condition s other than malignant neoplasm; Note: Date Diagnosed : 06/01/2015 2:15 PM (Z09) ; Start Date : 6 Not Available [facility] 4 03:22:12 History of malignant neoplasm of parotid gland 30501742038 9102 Active 2023 Primary tumor location: right parotid SCCA, 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 Medical Equipment None Reported. Allergies Allergen ID Allergen Name Allergen Category Reaction Reaction Severity Criticality Documentation Date Start Date Code Code System Note Provider Name and Address Organization Details Recorded Time [id number] lisinopri l medicatio n other Not available Not available 07/28/2023 05024 RxNorm React ion: unkno wn, unspe cifie d;; Not Available [facility] 4 01:24:44 Medications Name Sig Start [...] mg capsule 03/21 completed Medicati on ID: [id number] D uration Value: 5 Reason: () Brand Name: doxycycl ine hyclate Send Method: E-Prescr ibed Sub s Allowed: subs OK Speci al Instruct ion: TAKE ONE CAPSULE BY MOUTH TWICE A DAY FOR 5 DAYS Med [facility] doxycycl ine hyclate Not Available Not Available Not Available FreeStyle Lancets 28 gauge TEST ONCE A DAY active Not Available Not Available No t Available terazosin 1 mg capsule 03/17 completed Medicati on ID: [id number] D uration Value: 90 Brand Name: terazosi [...] 500 mg capsule active Medicati on ID: [id number] B rand Name: cephalex in Send Method: [...] topical ointment 03/21 completed Medicati on ID: [id number] D uration Value: 7 Reason: () Brand Name: mupiroci n Send Method: E-Prescr ibed Sub s Allowed: subs OK Speci al Instruct ion: APPLY TWICE A DAY TO BIOPSY SITES UNTIL HEALED Morgan Damian Name: muozzieroci n Not Available Not Available Not Available albuterol sulfate HFA 90 mcg/actua tion aerosol inhaler INHALE 2 PUFFS EVERY 4 HOURS NEEDED FOR WHEEZE OR FOR SHORTNES S OF BREATH active Not Available Not Available No t Available Percocet 5 mg-325 mg tablet 1-2 tablet by mouth 03/21 completed Medicati on ID: [id number] P rescribe d By Name: Andi Travis nd Name: Percocet Send Method: E-Prescr ibed Sub s Allowed: subs OK Medic ationGen ericName : Percocet Not Available Not Available Not Available ketoconaz ole 2 % topical cream 03/17 completed Medicati on ID: [id number] D uration Value: 15 Brand Name: ketocona [...] eye oint 03/21 completed Medicati on ID: [id number] D uration Value: 7 Reason: () Brand Name: neomycin -polymyx in B-dexame th Send Method: E-Prescr ibed Sub s Allowed: subs OK Speci al Instruct ion: APPLY 1/4 INCH TO AFFECTED EYELID AT BEDTIME Medicati onGeneri cName: neomycin -polymyx in B-dexame th Not Available Not Available Not Available metoprolo l tartrate 25 mg tablet 03/17 completed Medicati on ID: [id number] D uration Value: 90 Brand Name: metoprol ol tartrate Send Method: E-Prescr ibed Sub s Allowed: subs OK Speci al Instruct ion: 8-15 TAKE 1 TABLET TWICE DAILY ORALLY 90 Medic ationGen ericName : metoprol ol tartrate Not Available Not Available Not Available Spiriva with HandiHale r 18 mcg and inhalatio n capsules 03/17 completed Medicati on ID: [id number] D uration Value: 90 Brand Name: Spiriva [...] Updated DateTime 03/15/2024 182.88 cm 23.3 kg/m2 03108.89 g Nazanin Davis [place] - [facility] 03/15/2024 13:11:30 Social History None recorded. Functional Status None recorded. Mental Status None recorded. Family History Nothing Reported. Medical History No medical history recorded. Past Encounters Encounter ID Performer Location Encounter Start Date Encounter Closed Date Diagnosis/Indication Diagnosis SNOMED-CT Code Diagnosis ICD10 Code Diagnosis Note [id number] MAHAD CONLEY MD [facility] [address] [address] 03/15/2024 12:48:06 03/15/2024 13:31:30 History of malignant neoplasm of parotid gland [id number] 83335 Z85.818 Weakness o f face muscles 33934285 R29.810 Health Concerns Section Related Observation LastModified by Organization Shelly cortes LastModified Time None Recorded Concern Status LastModified by Organization Details LastModified Time None Recorded Advance Directives Directive None Recorded Payers Encounter Date Sequence Insurance Name Policy Number Policy [place] Covered Member ID Washburn Member ID Guarantor Name 03/15/2024 2 [facility] [id number] Florentino Heath [place] [id number] Florentino Bean 03/15/2024 1 [place] [employer] Florentino Bean [id number] Florentino Bean Notes Date Note Type Note Provider Name and Address Organization Details Recorded Time 03/15/2024 text/html Primary tumor location: right parotid SCCA, metastatic from right orthodoxy skinTreatment: right parotid neck dissection, sac upper branches facialDate of treatment completion:Oncology team: Barry Conley/Dr Alvarez no health changeswas offered left eye repair of ectropion - did not pursue previously but interested now MAHAD CONLEY MD [address] [place] [address], [place], [address], [facility] - [facility] 03/15/2024 13:28:40
--- OUTSIDE RECORDS SUMMARY | 2024-04-12 12:20 | XMS_ITS ---
Author Organization [facility] Address [address] [place] [address] Care Team Providers Care Electric Vehicle Electrician Name Role Phone Flakita Stewart Primary Care Provider Unavailabl e Black, Stephanie Unavailable [phone] Allergies Allergen (clinical drug ingredient) Drug/Non Drug [...] Ordered Date Performed Result Body Sit e 82072-ZELYHIS NAIL, 1-5 09/03/2023 N/A 61653-FTWB SKIN LESIONS, 2 TO 4 09/03/2023 N/A Encounters Encounter Location Date Provider Diagnosis [facility] [address] [address] 09/03/2023 Stephanie Bedoya Tinea unguium B35.1 and Type 2 diabetes mellitus with diabetic polyneuropathy E11.42 Assessments Encounter Date Diagnosis (ICD Code) Assessment Notes Treatment Notes Treatment Clinical Notes Section Notes 09/03/2023 Tinea unguium (ICD-10 - B35.1) 09/03/2023 Type 2 diabetes mellitus with diabetic polyneuropathy (ICD-10 - E11.42) Plan Of Treatment Pending Test Test Name Order Date 26931-HBLZQPO NAIL, 1-5 09/03/2023 91887-MQPP SKIN LESIONS, 2 TO 4 09/03/19 24 Next Appt Details Follow Up: prn, Reason: Provider Name:Stephanie Miller Aureliano , 08/15/2024 11:00:00 AM, [address] [place] [address] [place], [address], Procedure Notes * Category Sub-Category Detail Notes Keratoma Treatment Parring or Cutting o f Benign Hyperkeratotic Lesion(s) 11629 (2-4 Lesions) - The Benign hyperkeratotic lesions, [...] as necessary. Patient chooses, no pharmaceutical tx (07180) Progress Notes * Florentino BEAN RDOB: 8 (87 yo M)Acc No.[id number]:09/03/2023 Progress Note Patient:?Florentino Bean R Provider:?Stephanie Bedoya DPM :1935???Age:87 Y???Sex:Male Darryl e:09/03/2023 Address:[address] [place], [place] [id number] Pcp:Flakita Stewart Subjective: * Chief Complaints: * [...] E11.42 (Primary)? Plan: * Treatment: 2.?Tinea unguium?Procedure: 38907-OHLVRKD NAIL, 1-5 * Procedures:?Debride Nails 1-5:?Procedure:?Nail debridement performed extensively to reduce/remove overall nail length and girth, subungual debris, and necrotic tissue, by manual and electrical means by use of a nail nipper and/or dremel, to more viable healthy nail plate or bed tissue 1-5. Silver nitrate used for any petechial bleeding as necessary. Patient chooses, no pharmaceutical tx (65834).?Keratoma Treatment:?Parring or Cutting of Benign Hyperkeratotic Lesion(s)?80802 (2-4 Lesions) - The Benign hyperkeratotic lesions, as described above were pared, and/or cut utilizing a sterile #15 blade, tissue nippers, and/or dremel.? * Procedure Codes:?78862 DEBRI DE NAIL, 1-5, Modifiers: Q7 70026 TRIM SKIN LESIONS, 2 TO 4, Modifiers: Q7 * Follow Up:?prn * Images: * Sign off status: Completed true * Provider:?Stephanie Bedoya DPM Date:?2023 Generated for Printi ng/Fagómezg/eTransmitting on:?04/12/2024 12:20 PM EST History and Physical Notes * [...]
== END 2024-04-12 12:21 | disposition home or self-care (01) ==
LOC: HO.ACS 11:04
PROVIDERS: PCP Internal Medicine; Visit Provider Internal Medicine
DX: Z79.01 Long term (current) use of anticoagulants (principal)

== ENCOUNTER → 2024-04-12 11:04 | Outpatient (BNVA) | payer MEDICARE, OTHER, SELFPAY | PROVIDERS: PCP Internal Medicine; Visit Provider Internal Medicine | DX: I48.0 Paroxysmal atrial fibrillation (principal); Z79.01 Long term (current) use of anticoagulants; Z51.81 Encounter for therapeutic drug level monitoring | CPT/HCPCS: 85610; 99211 ==

== ENCOUNTER 2024-04-26 11:06 | Outpatient (AMB) | payer MEDICARE, OTHER, SELFPAY ==
[2024-04-26 11:35] LABS: Prothrombin Time Whole Bld POC 24.6 sec (11.1-13.5)
--- NOTE | 2024-04-26 11:44 | MHC.OFFVISCO ---
Intake Intake Visit Reasons: Anticoagulation Allergies lisinopril [LISINOPRIL] Allergy (Unknown, Verified 04/26/24 11:28) HIVES Medication List - Last Reconciled 04/26/24 by Mine Ruby RN albuterol sulfate 90 mcg/actuation 2 puffs inhalation Q4H PRN amlodipine 10 mg PO DAILY 90 days atorvastatin 40 mg PO DAILY blood sugar diagnostic (FreeStyle Lite Strips) ONCE A DAY blood-glucose meter (FreeStyle Lite Meter kit) ONCE A DAY cholecalciferol (vitamin D3) 50 mcg PO DAILY dapagliflozin propanediol (Farxiga) 5 mg PO DAILY docusate sodium (Colace) 100 mg PO BEDTIME fluticasone propion-salmeterol 500-50 mcg/dose (Wixela Inhub) 1 inh inhalation BID lancets As directed lancets (FreeStyle Lancets) ONCE A DAY losartan 25 mg PO DAILY [MANUAL WHEELCHAIR As directed] metoprolol tartrate 50 mg PO BID tamsulosin 0.4 mg PO BEDTIME 90 days tramadol 50 mg PO TID PRN 30 days umeclidinium 62.5 mcg/actuation (Incruse Ellipta) 1 inh PO BEDTIME warfarin 2.5 mg See Protocol PO 6XW warfarin 5 mg See Protocol PO QWEEK Nursing Note ambulated with walker to ACS with diffuculty gettin gup and down from sitting to standing and vise versa INR: 2.0 in therapeutic range Medications and supplements reviewed No changes in health, diet, medications, or supplements, had slight nose bleed but has cleared up - enc to keep hydrated and moisturize nares with saline Denies any signs and symptoms of bruising or clotting. Bleeding, bruising, clotting discussed Nutritional guidance given - eat a mix of fruits and vegetables - orange and reds will help raise the INR Dose: keep same dose 5mg x 1 day/ 2.5mg x 6 days F/U INR: 3 weeks Patient verbalizes understanding of instructions given Anti-Coag Initial Assessment Social Hx Patient Tobacco Use Status: Former Tobacco user Tobacco use type: Cigarette alcohol intake: never Coding Level of Care Code Est Patient Level 1 Diagnoses Current use of anticoagulant therapy Z79.01 Results AMB INR Fingerstick AMB INR Fingerstick 2.0 Last Edit by Mine Ruby RN on 04/26/24 11:36 manual entry Assessment & Plan Assessment & Plan (1) Current use of anticoagulant therapy: Code(s): Z79.01 - senior care (current) use of anticoagulants Category: Medical Medications: Changed From warfarin 2.5 mg See Protocol PO 6XW 30 tabs 2RF To warfarin See Protocol 2.5 mg orally 5mg x 1 day/ 2.5mg x 6 days; 30 tabs 2RF
== END 2024-04-26 11:49 | disposition home or self-care (01) ==
LOC: HO.ACS 11:06
PROVIDERS: PCP Internal Medicine; Visit Provider Internal Medicine
DX: Z79.01 Long term (current) use of anticoagulants (principal)

== ENCOUNTER → 2024-04-26 11:06 | Outpatient (BNVA) | payer MEDICARE, OTHER, SELFPAY | PROVIDERS: PCP Internal Medicine; Visit Provider Internal Medicine | DX: I48.0 Paroxysmal atrial fibrillation (principal); Z79.01 Long term (current) use of anticoagulants; Z51.81 Encounter for therapeutic drug level monitoring | CPT/HCPCS: 85610; 99211 ==

== ENCOUNTER 2024-05-04 11:02 | Outpatient (AMB) | payer MEDICARE, OTHER, SELFPAY ==
--- NOTE | 2024-05-04 11:11 | MHC.OFFVIS ---
Vital Signs 05/04/24 11:15 Height 6 ft Weight 170 lb BMI 23.1 BP 122/68 Blood Pressure Location Lt brachial Position Sitting Pulse 66 Pulse Source Pulse Oximeter Intake Visit Reasons: 6m follow up Allergies lisinopril [LISINOPRIL] Allergy (Unknown, Verified 04/26/24 11:28) HIVES Medication List - Last Reconciled 05/04/24 by Forrest Chaudhari MD albuterol sulfate 90 mcg/actuation 2 puffs inhalation Q4H PRN amlodipine 10 mg PO DAILY 90 days atorvastatin 40 mg PO DAILY blood sugar diagnostic (FreeStyle Lite Strips) ONCE A DAY blood-glucose meter (FreeStyle Lite Meter kit) ONCE A DAY cholecalciferol (vitamin D3) 50 mcg PO DAILY dapagliflozin propanediol (Farxiga) 5 mg PO DAILY docusate sodium (Colace) 100 mg PO BEDTIME fluticasone propion-salmeterol 500-50 mcg/dose (Wixela Inhub) 1 inh inhalation BID lancets As directed lancets (FreeStyle Lancets) ONCE A DAY losartan 25 mg PO DAILY [MANUAL WHEELCHAIR As directed] metoprolol tartrate 50 mg PO BID tamsulosin 0.4 mg PO BEDTIME 90 days tramadol 50 mg PO TID PRN 30 days umeclidinium 62.5 mcg/actuation (Incruse Ellipta) 1 inh PO BEDTIME warfarin See Protocol 2.5 mg orally 5mg x 1 day/ 2.5mg x 6 days; HPI Comments Details: Florentino comes for follow-up. He was gradually having increased symptoms of shortness of breath although he has also been not being very active and has been losing muscle mass and losing weight. As per the he has reduced overall calorie intake. He denies any orthopnea, PND. No lightheadedness, syncope. No exertional chest pain. His creatinine remains elevated in the 2 range. He denies any claudication symptoms. Denies any anginal symptoms. No prolonged palpitation irregular heartbeat. Takes all his medications regularly. 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 Mother No problems noted. Social History Household Members: Spouse Housing: House Do you presently have visiting nurse or other home services: No Alcohol intake: never Patient Tobacco Use Status: Former Tobacco user Tobacco use type: Cigarette Years Smoked: quit 1987 e-Cigarette/Vaping Use: Never Used Second Hand Smoke Exposure: No service: No Current occupational status: retired Cognitive needs: Yes (cane/walker/wheelchair) Hearing needs: Yes Vision needs: Yes Review of Systems Const Denies weakness ENT Denies dizziness Card Denies chest pain, Denies chest pain with activity, Denies syncope, Denies rapid heart rate, Denies pedal edema, Denies edema, Denies leg edema, Denies lightheadedness, Denies palpitations, Denies dyspnea, Denies dyspnea on exertion and Denies orthopnea Resp Denies cough, Denies dyspnea and Denies dyspnea on exertion GI Denies hematochezia and Denies change in stool character Musc Denies abnormal gait, Denies muscle cramps, Denies muscle weakness, Denies numbness, Denies radiating pain into limb and Denies tingling Neuro Denies abnormal gait, Denies dizziness, Denies syncope, Denies numbness, Denies tingling and Denies weakness Endo Denies palpitations Physical Exam Vital Signs: Last Vital Signs Pulse 66 05/04/24 11:15 BP 122/68 05/04/24 11:15 BMI result Body Mass Index 23.1 Const General: cooperative, comfortable, no acute distress, alert and awake Nutritional Appearance: underweight and other (Frail elderly man) Orientation/consciousness: patient oriented x3 Limitations: ambulation with cane Neck Neck: Yes trachea midline, Yes supple and Yes no JVD Resp Effort & Inspection: normal respiratory effort Auscultation: clear to auscultation bilaterally and diminished lung sounds Cardio Jugular venous distension: no JVD Palpation: normal PMI Rate: regular rate Rhythm: regular rhythm Heart sounds: S1 normal heart sound present, no click, no gallops, Murmur heart sound present systolic late, decrescendo and crescendo and Other heart sounds present (S4 present) GI Auscultation: normal bowel sounds Skin General skin exam: no rashes or lesions noted Neuro General: patient oriented x3 and no focal motor deficits Extrem General: Yes no clubbing, cyanosis or edema and Yes other (Right above knee amputation) Psych Appearance: grossly normal Assessment & Plan Assessment & Plan (1) Aortic stenosis: Comment: April 2021 moderate 1.2 cm squared March 2022he left ventricular systolic function is low normal. The calculated ejection fraction is 54% by biplane method. - The basal inferior and basal inferolateral segments are akinetic. - There is moderate to severe aortic valve stenosis. 1.0 cm2 October 2022 1.11 cm squared Code(s): I35.0 - Nonrheumatic aortic (valve) stenosis Category: Medical Qualifiers: Cardiac valve disease etiology: nonrheumatic Qualified Code(s): I35.0 - Nonrheumatic aortic (valve) stenosis Plan: Aortic stenosis with Mibi progressive symptoms shortness of breath which could be related to advancing age and frailty as well as deconditioning. Although progressive aortic stenosis likely. We discussed about the possibility of severe aortic stenosis that may require intervention. He was not sure whether he wants to undergo any further interventions. He wants to think about it. We discussed that he is at high risk given his multiple comorbidities including advanced age, frailty, significant vascular disease, chronic kidney disease, anemia as well as need for anticoagulation for atrial fibrillation to undergo procedure although this is not prohibitive risk. He was want to think about it. Will obtain echocardiogram near future to see if he has progressive severe aortic stenosis which may be considered for transcatheter aortic valve evaluation. Will discuss once we have the results of echocardiogram. (2) Paroxysmal atrial fibrillation: Comment: December 2012 Code(s): I48.0 - Paroxysmal atrial fibrillation Category: Medical Plan: Paroxysmal atrial fibrillation without any overt clinical recurrence at this point time. Discussed with the about management. Continue rhythm control approach. Continue current metoprolol therapy. Continue full oral anticoagulation, currently on warfarin therapy. Maintain target INR between 2 and 3. (3) Coronary artery disease: Comment: An STEMI December [address] stent [address] Chaudhari Code(s): I25.10 - Atherosclerotic heart disease of [place] coronary artery without angina pectoris Category: Medical Qualifiers: Coronary Disease-Associated Artery/Lesion type: [place] artery [place] vs. transplanted heart: [place] heart Associated angina: without angina Qualified Code(s): I25.10 - Atherosclerotic heart disease of [place] coronary artery without angina pectoris Plan: Diffuse and significant vascular disease as well as prior CAD with bare metal stent to the RCA. Clinically doing well with no symptoms of angina. Discussed continued aggressive risk factor modification. Continue aggressive blood pressure control which is currently well optimized. Currently on warfarin therapy will avoid aspirin therapy to reduce risk. Currently on high-intensity statin therapy. Continue the same. Will follow up in the clinic in 6 months time, sooner p.r.n.. Thank you for allowing me to partake in his care Coding Level of Care Code Est Pt Level 4 (61334) Complex EM visit Add On G2211 Diagnoses Nonrheumatic aortic valve stenosis I35.0 Cardiac valve disease etiology: nonrheumatic Paroxysmal atrial fibrillation I48.0 Coronary artery disease involving [place] coronary artery of [place] heart without angina pectoris I25.10 Coronary Disease-Associated Artery/Lesion type: [place] artery [place] vs. transplanted heart: [place] heart Associated angina: without angina
[2024-05-04 11:15] VITALS: BP 122/68; PULSE 66; BMI 23.1
--- OUTSIDE RECORDS SUMMARY | 2024-05-04 11:48 | XMS_ITS ---
Author Organization [facility] Address [address] [place] [address] Care Team Providers Care Retail Service Representative Name Role Phone Flakita Stewart Primary Care Provider Stephanie Pagan [phone] John Encounters Encounter Location Date Provider Diagnosis [address] [address] 12/14/2023 Stephanie Bedoya Plan Of Treatment Next Appt Details Provider Name:Stephanie Miller Bedoya , 08/15/2024 11:00:00 AM, [address] [place] [address], [phone], Progress Notes * Florentino BEAN RDOB: (88 yo M)Acc No.[id number]:12/14/2023 Progress Note Patient:?Florentino BEAN Provider:?Stephanie Bedoya DPM :1935???Age:88 Y???Sex:Male Darryl e:12/14/2023 Address:[address] [place] [address] Pcp:Flakita Stewart Subjective: * Chief Complaints: * [...] Bedoya DPM Date:?2023 Generated for Jessie chapa/Abilio/Gin on:?05/04/2024 11:48 AM EST
--- OUTSIDE RECORDS SUMMARY | 2024-05-04 11:48 | XMS_ITS ---
[facility] Address [address] [place] [address] Care Team Providers Care Ssis Architect Name Role Phone Flakita Stewart Primary Care Provider Unavailabl e Black, Stephanie Unavailable [phone] Allergies Allergen (clinical drug ingredient) Drug/Non Drug [...] user? No Vital Signs Blood pressure systolic 140 mm Hg 02/15/20 24 Blood pressure diastolic 58 mm Hg 024 Height 6 ft 0 in in 02/15/2024 Weight 172 lbs 02/15/2024 BMI 23.32 kg/m2 02/15/2024 Procedures Procedure Date Ordered Date Performed Result Body Sit e 76622-BGUETKG NAIL, 1-5 02/15/2024 N/A 32043-HZKG SKIN LESIONS, 2 TO 4 02/15/2024 N/A Encounters Encounter Location Date Provider Diagnosis [facility] [address] [address] 02/15/2024 Stephanie Black Tinea unguium B35.1 and Type 2 diabetes mellitus with diabetic polyneuropathy E11.42 Assessments Encounter Date Diagnosis (ICD Code) Assessment Notes Treatment Notes Treatment Clinical Notes Section Notes 02/15/2024 Tinea unguium (ICD-10 - B35.1) 02/15/2024 Type 2 diabetes mellitus with diabetic polyneuropathy (ICD-10 - E11.42) Plan Of Treatment Pending Test Test Name Order Date 13471-MCVPIUA NAIL, 1-5 02/15/2024 03444-YLWG SKIN LESIONS, 2 TO 4 02/15/20 24 Next Appt Details Follow Up: prn, Reason: Provider Name:Stephanie Bedoya , 08/15/2024 11:00:00 AM, [address] [place] [address], [phone], Procedure Notes * Category Sub-Category Detail Notes Keratoma Treatment Parring or Cutting o f Benign Hyperkeratotic Lesion(s) (-56) 2-4 Lesions - The Benign hyperkeratotic lesions, (3) in total, locations as stated and described in exam, were pared, and/or cut utilizing a sterile 15 blade, tissue nippers, and/or power dremel instrumentation - 42416 Debride Nails 1-5 Procedure: Performance of this nail treatment by a nonprofessional would put this patients foot and overall health at risk. Therefore, debridement to affected nail(s), as described in exam, was performed extensively to reduce/remove overall nail length, girth, thickness, subungual debris, and necrotic tissue, by manual and/or electrical means through the use of a nail nipper and/or dremel-type grinder operator surface tool, to a more viable healthy nail plate [...] necessary to maintain effective symptomatic relief - 34717 Progress Notes * Florentino BEAN RDOB: [birth year] (88 yo M)Acc No.[id number]:02/15/2024 Progress Note Patient:?Florentino BEAN Provider:?Stephanie Bedoya DPM :1935???Age:88 Y???Sex:Male Darryl e:02/15/2024 Address:[address] [place], [place] [phone] Pcp:Flakita Stewart Subjective: * Chief Complaints: * [...] due to neuropathy, 1-5 Left foot.?Vascular: ?AMPUTATION, NON-TRAUMATIC (A):?AKA right.?DP PULSES (B):?1/4, LEFT.?PT PULSES (B):? 0/4, LEFT.?CAPILLARY FILL TIME:? immediate, all digits, left.?TEMPERTURE GRADIENT (C):?normal, warm to cool, proximal to distal, left.?EDEMA (C):? 2/4, pitting, Left, Leg(s), Ankle(s).?General Examination: ?GENERAL APPEARANCE:?Reveals a pleasant, alert, well nourished, well- developed, well hydrated individual, who demonstrates proper attention to hygiene/body habitus, and is in no acute distress, Pt serves as own historian for office visit today.?ORIENTED:?person, place, and time.?FOOT EXAM:? Assessment: * Assessment: 1.?Tinea unguium - B35.1???2 .?Type 2 diabetes mellitus with diabetic polyneuropathy - E11.42 (Primary)??? Plan: * Treatment: 2.?Tinea unguium?Procedure: 92340-RVJMZES NAIL, 1-5 * Procedures:?Debride Nails 1-5:?Procedure:?Performance of this nail treatment by a nonprofessional would put this patients foot and overall health at risk. Therefore, debridement to affected nail(s), as described in exam, was performed extensively to reduce/remove overall nail length, girth, thickness, subungual debris, and necrotic tissue, by manual and/or electrical means through the use of a nail nipper and/or dremel-type grinder operator surface tool, to a more viable healthy nail plate [...] necessary to maintain effective symptomatic relief - 78490.?Keratoma Treatment:?Parring or Cutting of Benign Hyperkeratotic Lesion(s)?(-56) 2-4 Lesions - The Benign hyperkeratotic lesions, (3) in total, locations as stated and described in exam, were pared, and/or cut utilizing a sterile 15 blade, tissue nippers, and/or power dremel instrumentation - 31024.? * Procedure Codes:?43098 DEBRI DE NAIL, 1-5, Modifiers: Q7 68613 TRIM SKIN LESIONS, 2 TO 4, Modifiers: Q7 * Follow Up:?prn * Images: * Sign off status: Completed true * Provider:?Stephanie Bedoya DPM Date:?2023 Generated for Jessie chapa/Abilio/eTransmitting on:?05/04/2024 11:48 AM EST History and Physical Notes * HPI (History of Present Illness) Category Sub-Category Detail Notes Category Not es At Risk footcare Pt States Last PCP Visit: Date: AKA right - 2003 Examination Category Sub-Category [...] MTH (s), 1, Plantar Heel(s), , Left General Examination GENERAL APPEARANCE: Reveals a pleasant, alert, well nourished, well-developed, well hydrated individual, who demonstrates proper attention to hygiene/body habitus, and is in no acute distress, Pt serves as own historian for office visit today FOOT EXAM: Lower Extremity Neurological Exa m performed:: Yes Visual exam of foot performed:: Yes Date: 02/15/2024 Sensory testing performed:: sensations d iminished Sensory and motor testing performed:: se nsations diminished Pedal pulse taking performed:: absent ORIENTED: person, place, and t andrew Ophthalmology Referral DIABETES EYE EXAM Diabetic Retinopa thy Screening:: Yes Findings of Diabetic Eye Exam:: [...]
--- OUTSIDE RECORDS SUMMARY | 2024-05-04 11:49 | XMS_ITS ---
Author Organization [facility] Address [address] [place] [address] Care Team Providers Care Cyber Defense Analyst Name Role Phone Flakita Stewart Primary Care Provider Unavailabl e Black, Stephanie Unavailable [phone] Allergies Allergen (clinical drug ingredient) Drug/Non Drug [...] Ordered Date Performed Result Body Sit e 57653-OSGXHMF NAIL, 1-5 09/03/2023 N/A 24606-USEQ SKIN LESIONS, 2 TO 4 09/03/2023 N/A Encounters Encounter Location Date Provider Diagnosis [facility] [address] [address] 09/03/2023 Stephanie Black Tinea unguium B35.1 and Type 2 diabetes mellitus with diabetic polyneuropathy E11.42 Assessments Encounter Date Diagnosis (ICD Code) Assessment Notes Treatment Notes Treatment Clinical Notes Section Notes 09/03/2023 Tinea unguium (ICD-10 - B35.1) 09/03/2023 Type 2 diabetes mellitus with diabetic polyneuropathy (ICD-10 - E11.42) Plan Of Treatment Pending Test Test Name Order Date 77216-VRDBMNJ NAIL, 1-5 09/03/2023 89504-HLAS SKIN LESIONS, 2 TO 4 09/03/19 24 Next Appt Details Follow Up: prn, Reason: Provider Name:Stephanie Miller Aureliano , 08/15/2024 11:00:00 AM, [address] [place] [address] [place], [address], Procedure Notes * Category Sub-Category Detail Notes Keratoma Treatment Parring or Cutting o f Benign Hyperkeratotic Lesion(s) 26272 (2-4 Lesions) - The Benign hyperkeratotic lesions, [...] as necessary. Patient chooses, no pharmaceutical tx (76791) Progress Notes * Florentino BEAN RDOB: [birth year] (87 yo M)Acc No.[id number]:09/03/2023 Progress Note Patient:?Florentino Bean R Provider:?Stephanie Bedoya DPM :1935???Age:87 Y???Sex:Male Darryl e:09/03/2023 Address:[address] [place], [place] [phone] Pcp:Flakita Stewart Subjective: * Chief Complaints: * [...] E11.42 (Primary)? Plan: * Treatment: 2.?Tinea unguium?Procedure: 34985-WTHVZOR NAIL, 1-5 * Procedures:?Debride Nails 1-5:?Procedure:?Nail debridement performed extensively to reduce/remove overall nail length and girth, subungual debris, and necrotic tissue, by manual and electrical means by use of a nail nipper and/or dremel, to more viable healthy nail plate or bed tissue 1-5. Silver nitrate used for any petechial bleeding as necessary. Patient chooses, no pharmaceutical tx (35275).?Keratoma Treatment:?Parring or Cutting of Benign Hyperkeratotic Lesion(s)?45099 (2-4 Lesions) - The Benign hyperkeratotic lesions, as described above were pared, and/or cut utilizing a sterile #15 blade, tissue nippers, and/or dremel.? * Procedure Codes:?80801 DEBRI DE NAIL, 1-5, Modifiers: Q7 56515 TRIM SKIN LESIONS, 2 TO 4, Modifiers: Q7 * Follow Up:?prn * Images: * Sign off status: Completed true * Provider:?Stephanie Bedoya DPM Date:?2023 Generated for Printi ng/Fagómezg/eTransmitting on:?05/04/2024 11:48 AM EST History and Physical [...]
--- OUTSIDE RECORDS SUMMARY | 2024-05-04 11:49 | XMS_ITS | Patient Health Record ---
Author Organization [facility] Address [address] [place] [address] Care Team Providers Care Deputy Coroner Name Role Phone Flakita Stewart Primary Care Provider Unavailabl e Black, Stephanie Unavailable [phone] Allergies Allergen (clinical drug ingredient) Drug/Non Drug [...] Polyneuropathy due to type 2 diabetes mellitus (760136261) Type 2 diabetes mellitus with diabetic polyneuropathy (E11.42) Active confirmed Problem Ulcer of toe of right foot (disorder) (353268836008777 01) Skin ulcer of toe of right foot, limited to breakdown of skin (L97.511) Active confirmed Problem 531369681 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) Active confirmed Problem Ulcer of toe of left foot (disorder) (444804193959161 02) Skin ulcer of toe of left [...] Ordered Date Performed Result Body Sit e 47224-CYPDCON NAIL, 1-5 05/21/2023 N/A 45365- Debride <25 sq cm 05/21/2023 N/A 43487-EGUV SKIN LESIONS, 2 TO 4 05/21/2023 N/A 48533-VYPJVTE NAIL, 1-5 09/03/2023 N/A 15482-KWCO SKIN LESIONS, 2 TO 4 09/03/2023 N/A 71180-DLLGMBK NAIL, 1-5 02/15/2024 N/A 30210-GTSP SKIN LESIONS, 2 TO 4 02/15/2024 N/A Encounters Encounter Location Date Provider Diagnosis [address] [address] 05/21/2023 Stephanie Black Type 2 diabetes mellitus with diabetic polyneuropathy E11.42 ; Skin ulcer of toe of left foot, limited to breakdown of skin L97.521 and Tinea unguium B35.[address] [address] 09/03/2023 Stephanie Black Tinea unguium B35.1 and Type 2 diabetes mellitus with diabetic polyneuropathy E11.[address] [address] 02/15/2024 Stephanie Black Tinea unguium B35.1 and [...] Treatment Pending Test Test Name Order Date 93572-HABYHPU NAIL, 6 OR MORE 06/14/2020 35820-KEFUPAX NAIL, 6 OR MORE 12/31/2020 79905-JEZQZHU NAIL, 1-5 09/13/2020 98295-WMMUIXR NAIL, 1-5 01/23/2020 54917-GLCDFTP NAIL, 1-5 04/15/2021 26630-LKCQJJC NAIL, 1-5 07/15/2021 39906-CRWWLMK NAIL, 1-5 10/14/2021 56683-FZOFNLQ NAIL, 1-5 01/23/2022 81175-LFGFSMN NAIL, 1-5 04/28/2022 97202-JZQAHVZ NAIL, 1-5 07/28/2022 69721-LCHXXQU NAIL, 1-5 11/10/2022 81047-LEDNIDW NAIL, 1-5 02/16/2023 29577-BTWHMYQ NAIL, 1-5 05/21/2023 11392-MMFROBN NAIL, 1-5 09/03/2023 52254-ICLUODN NAIL, 1-5 02/15/2024 99282-Ywhepkue Plate 02/16/2023 03462- Debride <25 sq cm 05/21/2023 05948-ZLOC SKIN LESIONS, 2 TO 4 05/21/19 24 19588-GAVD SKIN LESIONS, 2 TO 4 09/03/19 24 61319-PXIK SKIN LESIONS, 2 TO 4 02/15/20 24 36806-CHVS SKIN LESIONS, 2 TO 4 01/23/20 20 75971-MMSA SKIN LESIONS, 2 TO 4 02/17/20 23 19820-JUCY SKIN LESIONS, 2 TO 4 11/11/19 23 01170-DVWV SKIN LESIONS, 2 TO 4 07/29/19 23 96964-AITQ SKIN LESIONS, 2 TO 4 04/28/19 23 63663-SSSS SKIN LESIONS, 2 TO 4 01/24/20 22 44848-RSYE SKIN LESIONS, 2 TO 4 08/01/20 22 45256-EVYF SKIN LESIONS, 2 TO 4 07/16/19 22 31129-LPJA SKIN LESIONS, 2 TO 4 06/15/19 21 00361-BAPK SKIN LESIONS, 2 TO 4 09/14/19 21 71045-IVWB SKIN LESIONS, 2 TO 4 01/01/20 21 46146-ISYQ SKIN LESIONS, 2 TO 4 04/15/19 22 HEMOGLOBIN A1C (GLYCOHEMOGLOBIN) 020 Next Appt Details Provider Name:Stephanie Bedoya , 08/15/2024 11:00:00 AM, [address] [place], [address], Insurance Providers Payer Name Payer Address Payer Phone Subscriber Number Group Number Insured Name Patient Relationship to Insured Coverage Start Date Coverage End Date Medicare National Govt [facility] [address] [place] [address] [id number] Florentino Bean Self - patient is the insured [facility] [address] [place] [address] [phone] [id number] Florentino Bean Self - patient is the insured 0 Medical (General) History Medical History History ICD Code CAD (Cholesterol) Cancer Cataracts Diabetic Gout Heart disease High blood pressure Lung disease Poor circulation Psoriasis Warts Measles Chicken pox Vascular grafts Transfusions Surgical History Surgery Date(Month/Year) right above the knee amputation 2004 parotidectomy 05/30/2015 Hospitalization History Reason Date(Month/Year) [facility] [place] 06/06 [facility] - Knee Amputation 200 4
--- OUTSIDE RECORDS SUMMARY | 2024-05-04 11:49 | XMS_ITS | Data Portability ---
Author Organization [place] [facility] Address [address] [place] [address] Assessment Encounter Date Assessment Date Assessment LastModified [...] Details Recorded Time Weakness of face muscles 69280082 Active 2018 sac upper branches facial nerve during parotid resection 2015 MAHAD CONLEY MD [address] [place] [address], [place], [address] [facility] [place] [facility] 4 10:09:47 History of malignant neoplasm of digestive organ 99084213536 596318 Active 2015 Personal history of malignant neoplasm of other digestive organs; Note: Changed from C07 to Z85.09 (03/21/2019 12:19 PM) , Changed from R22.0 to R22.1 ( 6 8:48 AM) , Changed from R22.1 to C07 ( 6 8:49 AM) , Date Diagnosed : 04/26/2015 10:05 AM (R22.0) Not Available [facility] 4 03:22:12 Postopera tive follow-up visit Active 2015 Post op; Note: Date Diagnosed : 06/01/2015 11:22 AM (V67.00) Not Available [facility] 4 03:22:12 Follow-up visit Active 2019 Encounter for follow-up examinati on after completed treatment for malignant neoplasm; Note: Date Diagnosed : 09/13/2019 4:00 PM (Z08) Encount er for follow-up examinati on after completed treatment for condition s other than malignant neoplasm; Note: Date Diagnosed : 06/01/2015 2:15 PM (Z09) ; Start Date : 6 Not Available [facility] 4 03:22:12 History of malignant neoplasm of parotid gland 23852752898 9102 Active 2023 Primary tumor location: right parotid SCCA, 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 Medical Equipment None Reported. Allergies Allergen ID Allergen Name Allergen Category Reaction Reaction Severity Criticality Documentation Date Start Date Code Code System Note Provider Name and Address Organization Details Recorded Time 865499 lisinopri l medicatio n other Not available Not available 07/28/2023 99136 RxNorm React ion: unkno wn, unspe cifie d;; Not Available [facility] 4 01:24:44 Medications Name Sig Start Date [...] mg capsule 03/21 completed Medicati on ID: [id number] D uration Value: 5 Reason: () Brand Name: doxycycl ine hyclate Send Method: E-Prescr ibed Sub s Allowed: subs OK Speci al Instruct ion: TAKE ONE CAPSULE BY MOUTH TWICE A DAY FOR 5 DAYS Med [facility] doxycycl ine hyclate Not Available Not Available Not Available FreeStyle Lancets 28 gauge TEST ONCE A DAY active Not Available Not Available No t Available terazosin 1 mg capsule 03/17 completed Medicati on ID: 240365 D uration Value: 90 Brand Name: terazosi [...] 500 mg capsule active Medicati on ID: 945106 B rand Name: cephalex in Send Method: [...] topical ointment 03/21 completed Medicati on ID: 638790 D uration Value: 7 Reason: () Brand [...] by mouth 03/21 completed Medicati on ID: 043865 P rescribe d By Name: Andi Travis nd Name: Percocet Send Method: E-Prescr ibed Sub s Allowed: subs OK Medic ationGen ericName : Percocet Not Available Not Available Not Available ketoconaz ole 2 % topical cream 03/17 completed Medicati on ID: 312696 D uration Value: 15 Brand Name: ketocona [...] eye oint 03/21 completed Medicati on ID: 439882 D uration Value: 7 Reason: () Brand Name: neomycin -polymyx in B-dexame th Send Method: E-Prescr ibed Sub s Allowed: subs OK Speci al Instruct ion: APPLY 1/4 INCH TO AFFECTED EYELID AT BEDTIME Medicati onGeneri cName: neomycin -polymyx in B-dexame th Not Available Not Available Not Available metoprolo l tartrate 25 mg tablet 03/17 completed Medicati on ID: 801121 D uration Value: 90 Brand Name: metoprol ol tartrate Send Method: E-Prescr ibed Sub s Allowed: subs OK Speci al Instruct ion: 8-15 TAKE 1 TABLET TWICE DAILY ORALLY 90 Medic ationGen ericName : metoprol ol tartrate Not Available Not Available Not Available Spiriva with HandiHale r 18 mcg and inhalatio n capsules 03/17 completed Medicati on ID: 540227 D uration Value: 90 Brand Name: Spiriva [...] Updated DateTime 03/15/2024 182.88 cm 23.3 kg/m2 13107.89 g Nazanin Davis [place] [facility] 03/15/2024 13:11:30 Social History None recorded. Functional Status None recorded. Mental Status None recorded. Family History Nothing Reported. Medical History No medical history recorded. Past Encounters Encounter ID Performer Location Encounter Start Date Encounter Closed Date Diagnosis/Indication Diagnosis SNOMED-CT Code Diagnosis ICD10 Code Diagnosis Note [id number] MAHAD CONLEY MD [facility] [address] [address] 03/15/2024 12:48:06 03/15/2024 13:31:30 History of malignant neoplasm of parotid gland [id number] 95426 Z85.818 Weakness o f face muscles 79937177 R29.810 Health Concerns Section Related Observation LastModified by Organization Shelly cortes LastModified Time None Recorded Concern Status LastModified by Organization Details LastModified Time None Recorded Advance Directives Directive None Recorded Payers Encounter Date Sequence Insurance Name Policy Number Policy [place] Covered Member ID [place] Member ID Guarantor Name 03/15/2024 2 [facility] [id number] Florentino Heath [place] [id number] Florentino Bean 03/15/2024 1 [place] [employer] Florentino Bean [id number] Florentino Bean Notes Date Note Type Note Provider Name and Address Organization Details Recorded Time 03/15/2024 text/html Primary tumor location: right parotid SCCA, metastatic from right religious skinTreatment: right parotid neck dissection, sac upper branches facialDate of treatment completion:Oncology team: Barry Conley/Dr Alvarez no health changeswas offered left eye repair of ectropion - did not pursue previously but interested now MAHAD CONLEY MD [address] [place] [address], [place], [address], [facility] - [facility] 03/15/2024 13:28:40
== END 2024-05-04 11:36 | disposition home or self-care (01) ==
PROVIDERS: PCP Internal Medicine; Visit Provider Internal Medicine Cardiovascular Disease
DX: I35.0 Nonrheumatic aortic (valve) stenosis (principal); I48.0 Paroxysmal atrial fibrillation; I25.10 Atherosclerotic heart disease of native coronary artery without angina pectoris
CPT/HCPCS: 99214; G2211

== ENCOUNTER → 2024-05-04 11:02 | Outpatient (BNVA) | payer MEDICARE, OTHER, SELFPAY | PROVIDERS: PCP Internal Medicine; Visit Provider Internal Medicine Cardiovascular Disease | DX: I35.0 Nonrheumatic aortic (valve) stenosis (principal); I48.0 Paroxysmal atrial fibrillation; I25.10 Atherosclerotic heart disease of native coronary artery without angina pectoris | CPT/HCPCS: 99212 ==

== ENCOUNTER 2024-05-09 09:50 | Outpatient (REF) | payer MEDICARE, OTHER, SELFPAY ==
--- OUTSIDE RECORDS SUMMARY | 2024-05-09 10:52 | XMS_ITS | Data Portability ---
Author Organization [place] - [facility], Allergy Address [address] [place] [address] Assessment Encounter Date Assessment Date Assessment LastModified [...] Details Recorded Time Weakness of face muscles 34294519 Active 2018 sac upper branches facial nerve during parotid resection 2015 MAHAD CONLEY MD [address] [place] [address], [place], [address] [facility] [place] - [facility] 4 10:09:47 History of malignant neoplasm of digestive organ [id number] 887809 Active 2015 Personal history of malignant neoplasm of other digestive organs; Note: Changed from C07 to Z85.09 (03/21/2019 12:19 PM) , Changed from R22.0 to R22.1 ( 6 8:48 AM) , Changed from R22.1 to C07 ( 6 8:49 AM) , Date Diagnosed : 04/26/2015 10:05 AM (R22.0) Not Available [facility] 4 03:22:12 Postopera tive follow-up visit Active 2015 Post op; Note: Date Diagnosed : 06/01/2015 11:22 AM (V67.00) Not Available [facility] 4 03:22:12 Follow-up visit Active 2019 Encounter for follow-up examinati on after completed treatment for malignant neoplasm; Note: Date Diagnosed : 09/13/2019 4:00 PM (Z08) Encount er for follow-up examinati on after completed treatment for condition s other than malignant neoplasm; Note: Date Diagnosed : 06/01/2015 2:15 PM (Z09) ; Start Date : 6 Not Available [facility] 4 03:22:12 History of malignant neoplasm of parotid gland 25918149076 9102 Active 2023 Primary tumor location: right parotid SCCA, metastati c from right orthodoxy skin Treatment : right parotid neck dissectio n Date of treatment completio n: 6 Oncology team: Barry Conley/Dr Antonio CONLEY MD [address] [place] [address], [facility] [place], [address] , [facility] 4 10:09:05 Problem Notes None recorded. Medical Equipment None Reported. Allergies Allergen ID Allergen Name Allergen Category Reaction Reaction Severity Criticality Documentation Date Start Date Code Code System Note Provider Name and Address Organization Details Recorded Time 979319 lisinopri l medicatio n other Not available Not available 07/28/2023 95848 RxNorm React ion: unkno wn, unspe cifie d;; Not Available [facility] 4 01:24:44 Medications Name Sig Start [...] mg capsule 03/21 completed Medicati on ID: [id number] D uration Value: 5 Reason: () Brand Name: doxycycl ine hyclate Send Method: E-Prescr ibed Sub s Allowed: subs OK Speci al Instruct ion: TAKE ONE CAPSULE BY MOUTH TWICE A DAY FOR 5 DAYS Med [facility]: doxycycl ine hyclate Not Available Not Available Not Available FreeStyle Lancets 28 gauge TEST ONCE A DAY active Not Available Not Available No t Available terazosin 1 mg capsule 03/17 completed Medicati on ID: [id number] D uration Value: 90 Brand Name: terazosi [...] 500 mg capsule active Medicati on ID: [id number] B rand Name: cephalex in Send Method: [...] topical ointment 03/21 completed Medicati on ID: [id number] D uration Value: 7 Reason: () Brand [...] by mouth 03/21 completed Medicati on ID: [id number] P rescribe d By Name: Andi Travis nd Name: Percocet Send Method: E-Prescr ibed Sub s Allowed: subs OK Medic ationGen ericName : Percocet Not Available Not Available Not Available ketoconaz ole 2 % topical cream 03/17 completed Medicati on ID: [id number] D uration Value: 15 Brand Name: ketocona [...] eye oint 03/21 completed Medicati on ID: [id number] D uration Value: 7 Reason: () Brand Name: neomycin -polymyx in B-dexame th Send Method: E-Prescr ibed Sub s Allowed: subs OK Speci al Instruct ion: APPLY 1/4 INCH TO AFFECTED EYELID AT BEDTIME Medicati onGeneri cName: neomycin -polymyx in B-dexame th Not Available Not Available Not Available metoprolo l tartrate 25 mg tablet 03/17 completed Medicati on ID: [id number] D uration Value: 90 Brand Name: metoprol ol tartrate Send Method: E-Prescr ibed Sub s Allowed: subs OK Speci al Instruct ion: 8-15 TAKE 1 TABLET TWICE DAILY ORALLY 90 Medic ationGen ericName : metoprol ol tartrate Not Available Not Available Not Available Spiriva with HandiHale r 18 mcg and inhalatio n capsules 03/17 completed Medicati on ID: [id number] D uration Value: 90 Brand Name: Spiriva [...] Updated DateTime 03/15/2024 182.88 cm 23.3 kg/m2 25550.89 g Nazanin Davis [place] - [facility] 03/15/2024 13:11:30 Social History None recorded. Functional Status None recorded. Mental Status None recorded. Family History Nothing Reported. Medical History No medical history recorded. Past Encounters Encounter ID Performer Location Encounter Start Date Encounter Closed Date Diagnosis/Indication Diagnosis SNOMED-CT Code Diagnosis ICD10 Code Diagnosis Note [id number] MAHAD CONLEY MD [facility] [address] [address] 03/15/2024 12:48:06 03/15/2024 13:31:30 History of malignant neoplasm of parotid gland 6525353243 02013 Z85.818 Weakness o f face muscles 85602291 R29.810 Health Concerns Section Related Observation LastModified by Organization Shelly cortes LastModified Time None Recorded Concern Status LastModified by Organization Details LastModified Time None Recorded Advance Directives Directive None Recorded Payers Encounter Date Sequence Insurance Name Policy Number Policy Washburn Covered Member ID Washburn Member ID Guarantor Name 03/15/2024 2 [facility] [id number] Florentino Heath [place] [id number] Florentino Bean 03/15/2024 1 [place] Florentino Bean [id number] Florentino Bean Notes Date Note Type [...] previously but interested now MAHAD CONLEY MD [address] [place] [address], [place], [address], [facility] - [facility] 03/15/2024 13:28:40
--- OUTSIDE RECORDS SUMMARY | 2024-05-09 10:52 | XMS_ITS | Patient Health Record ---
Author Organization [facility] Address [address] [place] [address] Care Team Providers Care [place] Gold Attendant Name Role Phone Flakita Stewart Primary Care Provider Unavailabl e Black, Stephanie Unavailable [phone] Allergies Allergen (clinical drug ingredient) Drug/Non Drug [...] Polyneuropathy due to type 2 diabetes mellitus (579390794) Type 2 diabetes mellitus with diabetic polyneuropathy (E11.42) Active confirmed Problem Ulcer of toe of right foot (disorder) (412728629644713 01) Skin ulcer of toe of right foot, limited to breakdown of skin (L97.511) Active confirmed Problem 515273371 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) Active confirmed Problem Ulcer of toe of left foot (disorder) (876378433510326 02) Skin ulcer of toe of left [...] Ordered Date Performed Result Body Sit e 04399-XBYJLRA NAIL, 1-5 05/21/2023 N/A 78332- Debride <25 sq cm 05/21/2023 N/A 75761-VUHL SKIN LESIONS, 2 TO 4 05/21/2023 N/A 63187-OGCZTEI NAIL, 1-5 09/03/2023 N/A 37830-ONTB SKIN LESIONS, 2 TO 4 09/03/2023 N/A 72024-OEUYDIW NAIL, 1-5 02/15/2024 N/A 42658-OGOS SKIN LESIONS, 2 TO 4 02/15/2024 N/A Encounters Encounter Location Date Provider Diagnosis [address] [address] 05/21/2023 Stephanie Black Type 2 diabetes mellitus with diabetic polyneuropathy E11.42 ; Skin ulcer of toe of left foot, limited to breakdown of skin L97.521 and Tinea unguium B35.[address] [address] 09/03/2023 Stephanie Black Tinea unguium B35.1 and Type 2 diabetes mellitus with diabetic polyneuropathy E11.[address] [address] 02/15/2024 Stephanie Black Tinea unguium B35.1 and [...] Treatment Pending Test Test Name Order Date 35132-NHUMSMD NAIL, 6 OR MORE 06/14/2020 90723-TPXPUWB NAIL, 6 OR MORE 12/31/2020 86569-WHPBIHO NAIL, 1-5 09/13/2020 80258-VVYLEAU NAIL, 1-5 01/23/2020 74410-IJIWVXC NAIL, 1-5 04/15/2021 98372-CWCKVYE NAIL, 1-5 07/15/2021 57318-MAOIPTD NAIL, 1-5 10/14/2021 68253-IGZAABJ NAIL, 1-5 01/23/2022 92300-VGYQEVW NAIL, 1-5 04/28/2022 75182-YAXASXU NAIL, 1-5 07/28/2022 37878-PKDDVAM NAIL, 1-5 11/10/2022 29997-GIDHPFA NAIL, 1-5 02/16/2023 76191-YIBGXIB NAIL, 1-5 05/21/2023 46906-XWHBJNB NAIL, 1-5 09/03/2023 72701-APQDKWQ NAIL, 1-5 02/15/2024 23265-Vnoizaud Plate 02/16/2023 10214- Debride <25 sq cm 05/21/2023 32281-YXKM SKIN LESIONS, 2 TO 4 05/21/19 24 49399-VFMB SKIN LESIONS, 2 TO 4 09/03/19 24 98438-ACUT SKIN LESIONS, 2 TO 4 02/15/20 24 36000-JSJO SKIN LESIONS, 2 TO 4 01/23/20 20 95915-BBXZ SKIN LESIONS, 2 TO 4 02/17/20 23 33043-QBEI SKIN LESIONS, 2 TO 4 11/11/19 23 27273-TMPS SKIN LESIONS, 2 TO 4 07/29/19 23 80750-GLSQ SKIN LESIONS, 2 TO 4 04/28/19 23 12275-GTUN SKIN LESIONS, 2 TO 4 01/24/20 22 48247-GJCU SKIN LESIONS, 2 TO 4 08/01/20 22 77384-ISDC SKIN LESIONS, 2 TO 4 07/16/19 22 75356-BGHX SKIN LESIONS, 2 TO 4 06/15/19 21 68389-OCDV SKIN LESIONS, 2 TO 4 09/14/19 21 51757-JBLW SKIN LESIONS, 2 TO 4 01/01/20 21 04437-PSBM SKIN LESIONS, 2 TO 4 04/15/19 22 HEMOGLOBIN A1C (GLYCOHEMOGLOBIN) 020 Next Appt Details Provider Name:Stephanie Bedoya , 08/15/2024 11:00:00 AM, [address] [place], [address], Insurance Providers Payer Name Payer Address Payer Phone Subscriber Number Group Number Insured Name Patient Relationship to Insured Coverage Start Date Coverage End Date Medicare National Govt [facility] [address] [place] [address] [id number] Florentino Bean Self - patient is the insured [employer] [facility] [address] [place] [address] [id number] Florentino Bean Self - patient is the insured 0 Medical (General) History Medical History History ICD Code CAD (Cholesterol) Cancer Cataracts Diabetic Gout Heart disease High blood pressure Lung disease Poor circulation Psoriasis Warts Measles Chicken pox Vascular grafts Transfusions Surgical History Surgery Date(Month/Year) right above the knee amputation 2004 parotidectomy 05/30/2015 Hospitalization History Reason Date(Month/Year) [facility]- Covid-19 06/06 [facility] - Knee Amputation 200 4
--- OUTSIDE RECORDS SUMMARY | 2024-05-09 10:52 | XMS_ITS ---
Author Organization [facility] Address [address] [place] [address] Care Team Providers Care Director Of Operations Home Health Name Role Phone Flakita Stewart Primary Care Provider Unavailabl e Black, Stephanie Unavailable [phone] Allergies Allergen (clinical drug ingredient) Drug/Non Drug [...] Ordered Date Performed Result Body Sit e 53186-IZOBHRI NAIL, 1-5 09/03/2023 N/A 52296-UTFB SKIN LESIONS, 2 TO 4 09/03/2023 N/A Encounters Encounter Location Date Provider Diagnosis [facility] [address] [address] 09/03/2023 Stephanie Bedoya Tinea unguium B35.1 and Type 2 diabetes mellitus with diabetic polyneuropathy E11.42 Assessments Encounter Date Diagnosis (ICD Code) Assessment Notes Treatment Notes Treatment Clinical Notes Section Notes 09/03/2023 Tinea unguium (ICD-10 - B35.1) 09/03/2023 Type 2 diabetes mellitus with diabetic polyneuropathy (ICD-10 - E11.42) Plan Of Treatment Pending Test Test Name Order Date 09732-FVMWUMU NAIL, 1-5 09/03/2023 24675-EXOI SKIN LESIONS, 2 TO 4 09/03/19 24 Next Appt Details Follow Up: prn, Reason: Provider Name:Stephanie Miller Aureliano , 08/15/2024 11:00:00 AM, [address] [place] [address] [place], [address], Procedure Notes * Category Sub-Category Detail Notes Keratoma Treatment Parring or Cutting o f Benign Hyperkeratotic Lesion(s) 56758 (2-4 Lesions) - The Benign hyperkeratotic lesions, [...] as necessary. Patient chooses, no pharmaceutical tx (90945) Progress Notes * Florentino BEAN RDOB: 8 (87 yo M)Acc No.[id number]:09/03/2023 Progress Note Patient:?Florentino Bean R Provider:?Stephanie Bedoya DPM :1935???Age:87 Y???Sex:Male Darryl e:09/03/2023 Address:[address] [place], [place] [id number] Pcp:Flakita Stewart Subjective: * Chief Complaints: * [...] E11.42 (Primary)? Plan: * Treatment: 2.?Tinea unguium?Procedure: 95780-FLUPQQZ NAIL, 1-5 * Procedures:?Debride Nails 1-5:?Procedure:?Nail debridement performed extensively to reduce/remove overall nail length and girth, subungual debris, and necrotic tissue, by manual and electrical means by use of a nail nipper and/or dremel, to more viable healthy nail plate or bed tissue 1-5. Silver nitrate used for any petechial bleeding as necessary. Patient chooses, no pharmaceutical tx (85309).?Keratoma Treatment:?Parring or Cutting of Benign Hyperkeratotic Lesion(s)?01696 (2-4 Lesions) - The Benign hyperkeratotic lesions, as described above were pared, and/or cut utilizing a sterile #15 blade, tissue nippers, and/or dremel.? * Procedure Codes:?42137 DEBRI DE NAIL, 1-5, Modifiers: Q7 54401 TRIM SKIN LESIONS, 2 TO 4, Modifiers: Q7 * Follow Up:?prn * Images: * Sign off status: Completed true * Provider:?Stephanie Bedoya DPM Date:?2023 Generated for Printi ng/Fagómezg/eTransmitting on:?05/09/2024 10:52 AM EST History and Physical Notes * [...]
== END 2024-05-09 09:51 | disposition home or self-care (01) ==
LOC: HO.SH 09:50
PROVIDERS: Visit Provider Internal Medicine
DX: Z01.118 Encounter for examination of ears and hearing with other abnormal findings (principal); H90.3 Sensorineural hearing loss, bilateral
CPT/HCPCS: 92557

== ENCOUNTER 2024-05-16 15:22 | Outpatient (REF) | payer SELFPAY ==
--- NOTE | 2024-05-16 15:45 | MHC.AU.MED ---
Medical Clearance for Hearing Instrumentation Date: 05/16/24 Patient Name: Florentino Bean Date of : 1935 Primary Care Provider: Referring Provider: Flakita Stewart MD We have seen your patient on 05/16/24 and have determined that they are a candidate for amplification (See accompanying report). Specifically, they would benefit from: Hearing aid use in both ears There is a statute that addresses Medical Evaluation Requirements prior to fitting a patient with a hearing aid. According to [place] statute 265 CMR:6.03(1), (a) General. Except as provided in 265 CMR 6.03(1)(b), a mixologist shall not sell a hearing aid unless the prospective user has presented to the mixologist a written statement signed by a licensed physician that states that the patient's hearing loss has been medically evaluated and the patient may be considered a candidate for a hearing aid. The medical evaluation must have taken place within the preceding six months. Please note: Due to the [place] Statute referenced above, we cannot accept a signature other than that of a licensed physician. ASSISTANT DIRECTOR OF PUBLIC WORKS and PA signatures cannot be accepted. I am in agreement with the above recommendation. There is no medical contraindication for hearing instrumentation. Physician Signature Date Physician Name (Printed)
--- OUTSIDE RECORDS SUMMARY | 2024-05-16 18:18 | XMS_ITS | Data Portability ---
Author Organization [place] - [facility], Allergy Address [address] [place] [address] Assessment Encounter Date Assessment Date Assessment LastModified [...] Details Recorded Time Weakness of face muscles 49847676 Active 2018 sac upper branches facial nerve during parotid resection 2015 MAHAD CONLEY MD [address] [place] [address], [place], [address] [facility] [place] - [facility] 4 10:09:47 History of malignant neoplasm of digestive organ 07442192625 314539 Active 2015 Personal history of malignant neoplasm of other digestive organs; Note: Changed from C07 to Z85.09 (03/21/2019 12:19 PM) , Changed from R22.0 to R22.1 ( 6 8:48 AM) , Changed from R22.1 to C07 ( 6 8:49 AM) , Date Diagnosed : 04/26/2015 10:05 AM (R22.0) Not Available [facility] 4 03:22:12 Postopera tive follow-up visit Active 2015 Post op; Note: Date Diagnosed : 06/01/2015 11:22 AM (V67.00) Not Available [facility] 4 03:22:12 Follow-up visit Active 2019 Encounter for follow-up examinati on after completed treatment for malignant neoplasm; Note: Date Diagnosed : 09/13/2019 4:00 PM (Z08) Encount er for follow-up examinati on after completed treatment for condition s other than malignant neoplasm; Note: Date Diagnosed : 06/01/2015 2:15 PM (Z09) ; Start Date : 6 Not Available [facility] 4 03:22:12 History of malignant neoplasm of parotid gland 89736992225 9102 Active 2023 Primary tumor location: right parotid SCCA, 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 Medical Equipment None Reported. Allergies Allergen ID Allergen Name Allergen Category Reaction Reaction Severity Criticality Documentation Date Start Date Code Code System Note Provider Name and Address Organization Details Recorded Time 757748 lisinopri l medicatio n other Not available Not available 07/28/2023 91725 RxNorm React ion: unkno wn, unspe cifie d;; Not Available [facility] 4 01:24:44 Medications Name Sig Start Date [...] mg capsule 03/21 completed Medicati on ID: [id number] D uration Value: 5 Reason: () Brand Name: doxycycl ine hyclate Send Method: E-Prescr ibed Sub s Allowed: subs OK Speci al Instruct ion: TAKE ONE CAPSULE BY MOUTH TWICE A DAY FOR 5 DAYS Med [facility]: doxycycl ine hyclate Not Available Not Available Not Available FreeStyle Lancets 28 gauge TEST ONCE A DAY active Not Available Not Available No t Available terazosin 1 mg capsule 03/17 completed Medicati on ID: 902413 D uration Value: 90 Brand Name: terazosi [...] 500 mg capsule active Medicati on ID: 982167 B rand Name: cephalex in Send Method: [...] topical ointment 03/21 completed Medicati on ID: 130083 D uration Value: 7 Reason: () Brand [...] by mouth 03/21 completed Medicati on ID: 925406 P rescribe d By Name: Andi Travis nd Name: Percocet Send Method: E-Prescr ibed Sub s Allowed: subs OK Medic ationGen ericName : Percocet Not Available Not Available Not Available ketoconaz ole 2 % topical cream 03/17 completed Medicati on ID: 922164 D uration Value: 15 Brand Name: ketocona [...] eye oint 03/21 completed Medicati on ID: 756668 D uration Value: 7 Reason: () Brand Name: neomycin -polymyx in B-dexame th Send Method: E-Prescr ibed Sub s Allowed: subs OK Speci al Instruct ion: APPLY 1/4 INCH TO AFFECTED EYELID AT BEDTIME Medicati onGeneri cName: neomycin -polymyx in B-dexame th Not Available Not Available Not Available metoprolo l tartrate 25 mg tablet 03/17 completed Medicati on ID: 458292 D uration Value: 90 Brand Name: metoprol ol tartrate Send Method: E-Prescr ibed Sub s Allowed: subs OK Speci al Instruct ion: 8-15 TAKE 1 TABLET TWICE DAILY ORALLY 90 Medic ationGen ericName : metoprol ol tartrate Not Available Not Available Not Available Spiriva with HandiHale r 18 mcg and inhalatio n capsules 03/17 completed Medicati on ID: [id number] D uration Value: 90 Brand Name: Spiriva [...] Updated DateTime 03/15/2024 182.88 cm 23.3 kg/m2 64838.89 g Nazanin Davis [place] - [facility] 03/15/2024 13:11:30 Social History None recorded. Functional Status None recorded. Mental Status None recorded. Family History Nothing Reported. Medical History No medical history recorded. Past Encounters Encounter ID Performer Location Encounter Start Date Encounter Closed Date Diagnosis/Indication Diagnosis SNOMED-CT Code Diagnosis ICD10 Code Diagnosis Note [id number] MAHAD CONLEY MD [facility] [address] [address] 03/15/2024 12:48:06 03/15/2024 13:31:30 History of malignant neoplasm of parotid gland 3185345767 00844 Z85.818 Weakness o f face muscles 23192107 R29.810 Health Concerns Section Related Observation LastModified by Organization Shelly cortes LastModified Time None Recorded Concern Status LastModified by Organization Details LastModified Time None Recorded Advance Directives Directive None Recorded Payers Encounter Date Sequence Insurance Name Policy Number Policy Washburn Covered Member ID Washburn Member ID Guarantor Name 03/15/2024 2 [facility] [id number] 8 Florentino Heath [place] [id number] Florentino Bean 03/15/2024 1 [place] Florentino Bean [id number] Florentino Bean Notes Date Note Type Note Provider Name and Address Organization Details Recorded Time 03/15/2024 text/html Primary tumor location: right parotid SCCA, metastatic from right bahai skinTreatment: right parotid neck dissection, sac upper branches facialDate of treatment completion:Oncology team: Barry Conley/Dr Alvarez no health changeswas offered left eye repair of ectropion - did not pursue previously but interested now MAHAD CONLEY MD [address] [place] [address], [place], [address], [facility] - [facility] 03/15/2024 13:28:40
--- OUTSIDE RECORDS SUMMARY | 2024-05-16 18:18 | XMS_ITS ---
Author Organization [facility] Address [address] [place] [address] Care Team Providers Care Soaker Name Role Phone Flakita Stewart Primary Care Provider Unavailabl e Black, Stephanie Unavailable [phone] Allergies Allergen (clinical drug ingredient) Drug/Non Drug Allergy documented on EMR Reaction Allergy Type Onset Date Status Lisinopril Unknown Drug Allergy Active REASON FOR VISIT At Risk Footcare Medications [...] Ordered Date Performed Result Body Sit e 72731-VDPIFCL NAIL, 1-5 02/15/2024 N/A 97019-DLAO SKIN LESIONS, 2 TO 4 02/15/2024 N/A Encounters Encounter Location Date Provider Diagnosis [facility] [address] [address] 02/15/2024 Stephanie Bedoya Tinea unguium B35.1 and Type 2 diabetes mellitus with diabetic polyneuropathy E11.42 Assessments Encounter Date Diagnosis (ICD Code) Assessment Notes Treatment Notes Treatment Clinical Notes Section Notes 02/15/2024 Tinea unguium (ICD-10 - B35.1) 02/15/2024 Type 2 diabetes mellitus with diabetic polyneuropathy (ICD-10 - E11.42) Plan Of Treatment Pending Test Test Name Order Date 40045-HCLHAOH NAIL, 1-5 02/15/2024 21431-QTNE SKIN LESIONS, 2 TO 4 02/15/20 24 Next Appt Details Follow Up: prn, Reason: Provider Name:Stephanie Bedoya , 08/15/2024 11:00:00 AM, [address] [place] [address], [phone], Procedure Notes * Category Sub-Category Detail Notes Keratoma Treatment Parring or Cutting o f Benign Hyperkeratotic Lesion(s) (-56) 2-4 Lesions - The Benign hyperkeratotic lesions, (3) in total, locations as stated and described in exam, were pared, and/or cut utilizing a sterile 15 blade, tissue nippers, and/or power dremel instrumentation - 21045 Debride Nails 1-5 Procedure: Performance of this nail treatment by a nonprofessional would put this patients foot and overall health at risk. Therefore, debridement to affected nail(s), as described in exam, was performed extensively to reduce/remove overall nail length, girth, thickness, subungual debris, and necrotic tissue, by manual and/or electrical means through the use of a nail nipper and/or dremel-type grinder chipper, to a more viable healthy nail plate [...] necessary to maintain effective symptomatic relief - 65663 Progress Notes * Florentino BEAN RDOB: 8 (88 yo M)Acc No.[id number]:02/15/2024 Progress Note Patient:?RYLEE Florentino Ivana Provider:?Stephanie Bedoya DPM :1935???Age:88 Y???Sex:Male Darryl e:02/15/2024 Address:[address] [place], [place] [id number] Pcp:Flakita Stewart Subjective: * Chief Complaints: * [...] 6.5 * Examination: ???Ophthalmology Referral: ?DIABETES EYE EXAM?Diabetic Retinopathy Screening:?Yes ?Findings of Diabetic Eye Exam:?no retinopathy?Dermatologic: ?SKIN FINDINGS:?Skin exam reveals keratotic lesion(s) located [...] for office visit today.?ORIENTED:?person, place, and time.?FOOT EXAM:?Lower Extremity Neurological Exam performed:?Yes ?Visual exam of foot performed:?Yes ?Date?02/15/2024 ?Sensory testing performed:?sensations diminished ?Sensory and motor testing performed:?sensations diminished ?Pedal pulse taking performed:?absent??? Assessment: * Assessment: 1.?Tinea unguium - B35.1???2 .?Type 2 diabetes mellitus with diabetic polyneuropathy - E11.42 (Primary)??? Plan: * Treatment: 2.?Tinea unguium?Procedure: 41283-YBMOXIS NAIL, 1-5 * Procedures:?Debride Nails 1-5:?Procedure:?Performance of this nail treatment by a nonprofessional would put this patients foot and overall health at risk. Therefore, debridement to affected nail(s), as described in exam, was performed extensively to reduce/remove overall nail length, girth, thickness, subungual debris, and necrotic tissue, by manual and/or electrical means through the use of a nail nipper and/or dremel-type grinder chipper, to a more viable healthy nail plate [...] necessary to maintain effective symptomatic relief - 12672.?Keratoma Treatment:?Parring or Cutting of Benign Hyperkeratotic Lesion(s)?(-56) 2-4 Lesions - The Benign hyperkeratotic lesions, (3) in total, locations as stated and described in exam, were pared, and/or cut utilizing a sterile 15 blade, tissue nippers, and/or power dremel instrumentation - 22015.? * Procedure Codes:?32370 DEBRI DE NAIL, 1-5, Modifiers: Q7 40468 TRIM SKIN LESIONS, 2 TO 4, Modifiers: Q7 * Follow Up:?prn * Images: * Sign off status: Completed true * Provider:?Stephanie Bedoya DPM Date:?2023 Generated for Jessie chapa/Abilio/eTransmitting on:?05/16/2024 06:18 PM EST History and Physical Notes * [...]
--- OUTSIDE RECORDS SUMMARY | 2024-05-16 18:18 | XMS_ITS | Patient Health Record ---
Author Organization [facility] Address [address] [place] [address] Care Team Providers Care Excellence Manager Name Role Phone Flakita Stewart Primary Care Provider Unavailabl e Aureliano Stephanie Unavailable [phone] Allergies Allergen (clinical drug ingredient) Drug/Non Drug Allergy documented on EMR Reaction Allergy Type Onset Date Status Lisinopril Unknown Drug Allergy Active Results Component Value Reference Range Notes HEMOGLOBIN [...] Polyneuropathy due to type 2 diabetes mellitus (582987065) Type 2 diabetes mellitus with diabetic polyneuropathy (E11.42) Active confirmed Problem Ulcer of toe of right foot (disorder) (685176845416693 01) Skin ulcer of toe of right foot, limited to breakdown of skin (L97.511) Active confirmed Problem 342779952 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) Active confirmed Problem Ulcer of toe of left foot (disorder) (448990197477298 02) Skin ulcer of toe of left [...] Ordered Date Performed Result Body Sit e 33221-DLUVJNC NAIL, 1-5 05/21/2023 N/A 60236- Debride <25 sq cm 05/21/2023 N/A 81835-UCFP SKIN LESIONS, 2 TO 4 05/21/2023 N/A 39842-RCTDPXP NAIL, 1-5 09/03/2023 N/A 77957-VUWA SKIN LESIONS, 2 TO 4 09/03/2023 N/A 41614-QVPJZSF NAIL, 1-5 02/15/2024 N/A 04997-BZBX SKIN LESIONS, 2 TO 4 02/15/2024 N/A Encounters Encounter Location Date Provider Diagnosis [address] [address] 05/21/2023 Stephanie Black Type 2 diabetes mellitus with diabetic polyneuropathy E11.42 ; Skin ulcer of toe of left foot, limited to breakdown of skin L97.521 and Tinea unguium B35.[address] [address] 09/03/2023 Stephanie Black Tinea unguium B35.1 and Type 2 diabetes mellitus with diabetic polyneuropathy E11.[address] [address] 02/15/2024 Stephanie Black Tinea unguium B35.1 and [...] Treatment Pending Test Test Name Order Date 13590-MSJRPDE NAIL, 6 OR MORE 06/14/2020 46240-DMACNHZ NAIL, 6 OR MORE 12/31/2020 02574-ECHIESS NAIL, 1-5 09/13/2020 20350-QETSEJS NAIL, 1-5 01/23/2020 21190-XLSXEPY NAIL, 1-5 04/15/2021 09252-TOTMBND NAIL, 1-5 07/15/2021 43913-UWKEAIY NAIL, 1-5 10/14/2021 87432-RJXXYMJ NAIL, 1-5 01/23/2022 86044-SOWIEAW NAIL, 1-5 04/28/2022 01142-GCMJYPC NAIL, 1-5 07/28/2022 47770-CVQVTZP NAIL, 1-5 11/10/2022 29749-YBLCRUT NAIL, 1-5 02/16/2023 89546-KZZRSAI NAIL, 1-5 05/21/2023 80717-WUTWRJM NAIL, 1-5 09/03/2023 67568-HYZHFJP NAIL, 1-5 02/15/2024 40564-Nfpozxxu Plate 02/16/2023 03954- Debride <25 sq cm 05/21/2023 79503-CFAK SKIN LESIONS, 2 TO 4 05/21/19 24 48819-FNDK SKIN LESIONS, 2 TO 4 09/03/19 24 26751-FMXO SKIN LESIONS, 2 TO 4 02/15/20 24 10804-RJSM SKIN LESIONS, 2 TO 4 01/23/20 20 25168-DNTK SKIN LESIONS, 2 TO 4 02/17/20 23 41784-CYTV SKIN LESIONS, 2 TO 4 11/11/19 23 98696-JLKJ SKIN LESIONS, 2 TO 4 07/29/19 23 63893-ORRN SKIN LESIONS, 2 TO 4 04/28/19 23 06547-TZHJ SKIN LESIONS, 2 TO 4 01/24/20 22 15959-NXOK SKIN LESIONS, 2 TO 4 10/15/19 31189-XTFJ SKIN LESIONS, 2 TO 4 07/16/19 22 73543-FVAS SKIN LESIONS, 2 TO 4 06/15/19 21 63485-LFAG SKIN LESIONS, 2 TO 4 09/14/19 21 84040-GXBV SKIN LESIONS, 2 TO 4 01/01/20 21 64845-BJQN SKIN LESIONS, 2 TO 4 04/15/19 22 HEMOGLOBIN A1C (GLYCOHEMOGLOBIN) 020 Next Appt Details Provider Name:Stephanie Bedoya , 08/15/2024 11:00:00 AM, [address] [place], [address], Insurance Providers Payer Name Payer Address Payer Phone Subscriber Number Group Number Insured Name Patient Relationship to Insured Coverage Start Date Coverage End Date Medicare National [employer]t [employer] [address] [place] [address] [id number] Florentino Bean Self - patient is the insured [employer] ([employer]) [address] [place] [address] [phone] [id number] Florentino Bean Self - patient is the insured 0 Medical (General) History Medical History History ICD Code CAD (Cholesterol) Cancer Cataracts Diabetic Gout Heart disease High blood pressure Lung disease Poor circulation Psoriasis Warts Measles Chicken pox Vascular grafts Transfusions Surgical History Surgery Date(Month/Year) right above the knee amputation 2003 parotidectomy 05/30/2015 [place] Reason [place] [facility] [place] [facility] - Knee Amputation 200 4
--- OUTSIDE RECORDS SUMMARY | 2024-05-16 18:18 | XMS_ITS ---
Author Organization [facility] Address [address] [place] [address] Care Team Providers Care Tracer Powder Blender Name Role Phone Flakita Stewart Primary Care Provider Unavailabl e Black, Stephanie Unavailable [phone] Allergies Allergen (clinical drug ingredient) Drug/Non Drug [...] Ordered Date Performed Result Body Sit e 92937-ESCSEYJ NAIL, 1-5 09/03/2023 N/A 54945-HKSC SKIN LESIONS, 2 TO 4 09/03/2023 N/A Encounters Encounter Location Date Provider Diagnosis [facility] [address] [address] 09/03/2023 Stephanie Bedoya Tinea unguium B35.1 and Type 2 diabetes mellitus with diabetic polyneuropathy E11.42 Assessments Encounter Date Diagnosis (ICD Code) Assessment Notes Treatment Notes Treatment Clinical Notes Section Notes 09/03/2023 Tinea unguium (ICD-10 - B35.1) 09/03/2023 Type 2 diabetes mellitus with diabetic polyneuropathy (ICD-10 - E11.42) Plan Of Treatment Pending Test Test Name Order Date 60981-VDJJWRX NAIL, 1-5 09/03/2023 55817-GDWS SKIN LESIONS, 2 TO 4 09/03/19 24 Next Appt Details Follow Up: prn, Reason: Provider Name:Stephanie A Aureliano , 08/15/2024 11:00:00 AM, [address] [place] [address], [address], Procedure Notes * Category Sub-Category Detail Notes Keratoma Treatment Parring or Cutting o f Benign Hyperkeratotic Lesion(s) 02287 (2-4 Lesions) - The Benign hyperkeratotic lesions, [...] as necessary. Patient chooses, no pharmaceutical tx (52183) Progress Notes * Florentino BEAN RDOB: 8 (87 yo M)Acc No.[id number]:09/03/2023 Progress Note Patient:?Florentino Bean Provider:?Stephanie Bedoya DPM :1935???Age:87 Y???Sex:Male Darryl e:09/03/2023 Address:[address] [place], [place] [id number] Pcp:Flakita Stewart Subjective: * Chief Complaints: * [...] 5.8 * Examination: ???Ophthalmology Referral: ?DIABETES EYE EXAM?Diabetic Retinopathy Screening:?Yes ?Findings of Diabetic Eye Exam:?no retinopathy?Dermatologic: ?SKIN FINDINGS:??Skin exam reveals keratotic lesion(s) located [...] E11.42 (Primary)? Plan: * Treatment: 2.?Tinea unguium?Procedure: 46565-UHWIHDV NAIL, 1-5 * Procedures:?Debride Nails 1-5:?Procedure:?Nail debridement performed extensively to reduce/remove overall nail length and girth, subungual debris, and necrotic tissue, by manual and electrical means by use of a nail nipper and/or dremel, to more viable healthy nail plate or bed tissue 1-5. Silver nitrate used for any petechial bleeding as necessary. Patient chooses, no pharmaceutical tx (29973).?Keratoma Treatment:?Parring or Cutting of Benign Hyperkeratotic Lesion(s)?02676 (2-4 Lesions) - The Benign hyperkeratotic lesions, as described above were pared, and/or cut utilizing a sterile #15 blade, tissue nippers, and/or dremel.? * Procedure Codes:?73311 DEBRI DE NAIL, 1-5, Modifiers: Q7 54731 TRIM SKIN LESIONS, 2 TO 4, Modifiers: Q7 * Follow Up:?prn * Images: * Sign off status: Completed true * Provider:?ROE GarciaM Date:?2023 Generated for Jessie chapa/Abilio/Gin on:?05/16/2024 06:18 PM EST History and Physical Notes * HPI (History of Present Illness) Category Sub-Category Detail Notes Category Not es At Risk footcare Pt States Last PCP Visit: Date: AKA - 2003 Examination Category Sub-Category Detail [...]
--- OUTSIDE RECORDS SUMMARY | 2024-05-16 18:18 | XMS_ITS ---
Author [facility] Address [address] [place] [address] Care Team Providers Care Server Administrator Name Role Phone Flakita Stewart Primary Care Provider Stephanie Pagan [phone] John Encounters Encounter Location Date Provider Diagnosis [address] [address] 12/14/2023 Stephanie Bedoya Plan Of Treatment Next Appt Details Provider Name:Stephanie Miller Bedoya , 08/15/2024 11:00:00 AM, [address] [place] [address], [phone], Progress Notes * Florentino BEAN RDOB: (88 yo M)Acc No.[id number]:12/14/2023 Progress Note Patient:?Florentino BEAN Provider:?Stephanie Bedoya DPM :1935???Age:88 Y???Sex:Male Darryl e:12/14/2023 Address:[address] [place] [address] Pcp:Flakita Stewart Subjective: * Chief Complaints: * [...] Bedoya DPM Date:?2023 Generated for Jessie chapa/Abilio/Gin on:?05/16/2024 06:18 PM EST
== END 2024-05-16 15:23 | disposition home or self-care (01) ==
LOC: HO.HAP 15:22
PROVIDERS: Visit Provider Internal Medicine
DX: Z46.1 Encounter for fitting and adjustment of hearing aid (principal); H90.3 Sensorineural hearing loss, bilateral
CPT/HCPCS: 92591

== ENCOUNTER 2024-05-17 11:06 | Outpatient (AMB) | payer SELFPAY ==
[2024-05-17 11:32] LABS: ~PT, ~INR - Anti Coag Clinic 2.3 (0.9-1.1)
--- NOTE | 2024-05-17 11:45 | MHC.OFFVISCO ---
Intake Intake Visit Reasons: Anticoagulation Allergies lisinopril [LISINOPRIL] Allergy (Unknown, Verified 05/17/24 11:26) HIVES Medication List - Last Reconciled 05/17/24 by Taya Polk RN albuterol sulfate 90 mcg/actuation 2 puffs inhalation Q4H PRN amlodipine 10 mg PO DAILY 90 days atorvastatin 40 mg PO DAILY blood sugar diagnostic (FreeStyle Lite Strips) ONCE A DAY blood-glucose meter (FreeStyle Lite Meter kit) ONCE A DAY cholecalciferol (vitamin D3) 50 mcg PO DAILY dapagliflozin propanediol (Farxiga) 5 mg PO DAILY docusate sodium (Colace) 100 mg PO BEDTIME fluticasone propion-salmeterol 500-50 mcg/dose (Wixela Inhub) 1 inh inhalation BID lancets As directed lancets (FreeStyle Lancets) ONCE A DAY losartan 25 mg PO DAILY [MANUAL WHEELCHAIR As directed] metoprolol tartrate 50 mg PO BID tamsulosin 0.4 mg PO BEDTIME 90 days tramadol 50 mg PO TID PRN 30 days umeclidinium 62.5 mcg/actuation (Incruse Ellipta) 1 inh PO BEDTIME warfarin See Protocol 2.5 mg orally 5mg x 1 day/ 2.5mg x 6 days; Nursing Note Pt to ACS with wheeled walker accompanied by INR: 2.3 in therapeutic range of 2-3 Medications and supplements reviewed No changes in health, diet, medications, or supplements, Denies any signs and symptoms of bleeding or bruising or clotting. Bleeding, bruising, clotting discussed Nutritional guidance given Dose: continue same dose of 2.5mg X 6 days and 5mg X 1 day (Thu) F/U INR: 3 weeks Patient verbalizes understanding of instructions given Anti-Coag Initial Assessment Social Hx Patient Tobacco Use Status: Former Tobacco user Tobacco use type: Cigarette alcohol intake: never Coding Level of Care Code Est Patient Level 1 Diagnoses Current use of anticoagulant therapy Z79.01 Assessment & Plan Assessment & Plan (1) Current use of anticoagulant therapy: Code(s): Z79.01 - long term care administrator (current) use of anticoagulants Category: Medical
--- OUTSIDE RECORDS SUMMARY | 2024-05-17 13:56 | XMS_ITS ---
Author [facility] Address [address] [place] [address] Care Team Providers Care Electromechanical Assembly Technician Name Role Phone Flakita Stewart Primary Care Provider Stephanie Pagan [phone] John Encounters Encounter Location Date Provider Diagnosis [address] [address] 12/14/2023 Stephanie Bedoya Plan Of Treatment Next Appt Details Provider Name:Stephanie Miller Bedoya , 08/15/2024 11:00:00 AM, [address] [place] [address], [phone], Progress Notes * Florentino BEAN RDOB: (88 yo M)Acc No.[id number]:12/14/2023 Progress Note Patient:?Florentino BEAN Provider:?Stephanie Bedoya DPM :1935???Age:88 Y???Sex:Male Darryl e:12/14/2023 Address:[address] [place] [address] Pcp:Flakita Stewart Subjective: * Chief Complaints: * [...] Bedoya DPM Date:?2023 Generated for Jessie chapa/Abilio/Gin on:?05/17/2024 01:56 PM EST
--- OUTSIDE RECORDS SUMMARY | 2024-05-17 13:57 | XMS_ITS ---
[facility] Organization [facility] Address [address] [place] [address] Care Team Providers Care Manager Math Name Role Phone Flakita Stewart Primary Care Provider Unavailabl e Black, Stephanie Unavailable [phone] Allergies Allergen (clinical drug ingredient) Drug/Non Drug [...] Ordered Date Performed Result Body Sit e 94593-MMFYRPG NAIL, 1-5 09/03/2023 N/A 45926-CUAY SKIN LESIONS, 2 TO 4 09/03/2023 N/A Encounters Encounter Location Date Provider Diagnosis [facility] [address] [address] 09/03/2023 Stephanie Bedoya Tinea unguium B35.1 and Type 2 diabetes mellitus with diabetic polyneuropathy E11.42 Assessments Encounter Date Diagnosis (ICD Code) Assessment Notes Treatment Notes Treatment Clinical Notes Section Notes 09/03/2023 Tinea unguium (ICD-10 - B35.1) 09/03/2023 Type 2 diabetes mellitus with diabetic polyneuropathy (ICD-10 - E11.42) Plan Of Treatment Pending Test Test Name Order Date 04006-QERFHHG NAIL, 1-5 09/03/2023 45859-ZXTX SKIN LESIONS, 2 TO 4 09/03/19 24 Next Appt Details Follow Up: prn, Reason: Provider Name:Stephanie A Aureliano , 08/15/2024 11:00:00 AM, [address] [place] [address], [phone], Procedure Notes * Category Sub-Category Detail Notes Keratoma Treatment Parring or Cutting o f Benign Hyperkeratotic Lesion(s) 10814 (2-4 Lesions) - The Benign hyperkeratotic lesions, [...] as necessary. Patient chooses, no pharmaceutical tx (22986) Progress Notes * Florentino BEAN RDOB: 8 (87 yo M)Acc No.[id number]:09/03/2023 Progress Note Patient:?Florentino Bean Provider:?Stephanie Bedoya DPM :1935???Age:87 Y???Sex:Male Darryl e:09/03/2023 Address:[address] [place] [id number] Pcp:Flakita Stewart Subjective: * Chief Complaints: * [...] E11.42 (Primary)? Plan: * Treatment: 2.?Tinea unguium?Procedure: 46256-VRQHIMI NAIL, 1-5 * Procedures:?Debride Nails 1-5:?Procedure:?Nail debridement performed extensively to reduce/remove overall nail length and girth, subungual debris, and necrotic tissue, by manual and electrical means by use of a nail nipper and/or dremel, to more viable healthy nail plate or bed tissue 1-5. Silver nitrate used for any petechial bleeding as necessary. Patient chooses, no pharmaceutical tx (28860).?Keratoma Treatment:?Parring or Cutting of Benign Hyperkeratotic Lesion(s)?06675 (2-4 Lesions) - The Benign hyperkeratotic lesions, as described above were pared, and/or cut utilizing a sterile #15 blade, tissue nippers, and/or dremel.? * Procedure Codes:?17904 DEBRI DE NAIL, 1-5, Modifiers: Q7 53802 TRIM SKIN LESIONS, 2 TO 4, Modifiers: Q7 * Follow Up:?prn * Images: * Sign off status: Completed true * Provider:?ROE GarciaM Date:?2023 Generated for Jessie chapa/Abilio/Gin on:?05/17/2024 01:56 PM EST History and Physical Notes * [...]
--- OUTSIDE RECORDS SUMMARY | 2024-05-17 13:57 | XMS_ITS | Patient Health Record ---
Author Organization [facility] Address [address] [place] [address] Care Team Providers Care Cisco Certified Network Associate Name Role Phone Flakita Stewart Primary Care Provider Unavailabl e Aureliano Stephanie Unavailable [phone] Allergies Allergen (clinical drug ingredient) Drug/Non Drug [...] Polyneuropathy due to type 2 diabetes mellitus (064860545) Type 2 diabetes mellitus with diabetic polyneuropathy (E11.42) Active confirmed Problem Ulcer of toe of right foot (disorder) (339495839720693 01) Skin ulcer of toe of right foot, limited to breakdown of skin (L97.511) Active confirmed Problem 363754674 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) Active confirmed Problem Ulcer of toe of left foot (disorder) (708588529671034 02) Skin ulcer of toe of left [...] Ordered Date Performed Result Body Sit e 14674-QIRREHU NAIL, 1-5 05/21/2023 N/A 41532- Debride <25 sq cm 05/21/2023 N/A 67654-IYCR SKIN LESIONS, 2 TO 4 05/21/2023 N/A 10589-CQZSZOT NAIL, 1-5 09/03/2023 N/A 55372-ODVC SKIN LESIONS, 2 TO 4 09/03/2023 N/A 60969-NPHXYFY NAIL, 1-5 02/15/2024 N/A 42654-GFCD SKIN LESIONS, 2 TO 4 02/15/2024 N/A Encounters Encounter Location Date Provider Diagnosis [address] [address] 05/21/2023 Stephanie Black Type 2 diabetes mellitus with diabetic polyneuropathy E11.42 ; Skin ulcer of toe of left foot, limited to breakdown of skin L97.521 and Tinea unguium B35.[address] [address] 09/03/2023 Stephanie Black Tinea unguium B35.1 and Type 2 diabetes mellitus with diabetic polyneuropathy E11.[address] [address] 02/15/2024 Stephanie Black Tinea unguium B35.1 and [...] Treatment Pending Test Test Name Order Date 61642-OACJRJJ NAIL, 6 OR MORE 06/14/2020 06626-YERNKBY NAIL, 6 OR MORE 12/31/2020 17362-WJDTGVD NAIL, 1-5 09/13/2020 82107-ZBKWSHV NAIL, 1-5 01/23/2020 82624-UQNMMVS NAIL, 1-5 04/15/2021 02313-TTUAZPD NAIL, 1-5 07/15/2021 15907-KZCVUBV NAIL, 1-5 10/14/2021 94042-DPSJBDU NAIL, 1-5 01/23/2022 33064-JOGPXEC NAIL, 1-5 04/28/2022 00784-YSMWZIE NAIL, 1-5 07/28/2022 18958-BCRWJSK NAIL, 1-5 11/10/2022 36628-TXTFLTD NAIL, 1-5 02/16/2023 98191-YUCSLUM NAIL, 1-5 05/21/2023 04080-MCTCTJX NAIL, 1-5 09/03/2023 27267-YQEQJKM NAIL, 1-5 02/15/2024 03402-Yhwvwekb Plate 02/16/2023 50179- Debride <25 sq cm 05/21/2023 81884-TXLE SKIN LESIONS, 2 TO 4 05/21/19 24 59876-DITL SKIN LESIONS, 2 TO 4 09/03/19 24 58092-ZOZW SKIN LESIONS, 2 TO 4 02/15/20 24 77547-DOSK SKIN LESIONS, 2 TO 4 01/23/20 20 90002-JDJB SKIN LESIONS, 2 TO 4 02/17/20 23 65009-DGKE SKIN LESIONS, 2 TO 4 11/11/19 23 37287-QSMY SKIN LESIONS, 2 TO 4 07/29/19 23 45126-ZONL SKIN LESIONS, 2 TO 4 04/28/19 23 92877-GQEW SKIN LESIONS, 2 TO 4 01/24/20 22 70719-WWYZ SKIN LESIONS, 2 TO 4 10/15/19 80319-MMWO SKIN LESIONS, 2 TO 4 07/16/19 22 53187-MHFP SKIN LESIONS, 2 TO 4 06/15/19 21 30260-QIJA SKIN LESIONS, 2 TO 4 09/14/19 21 92161-PYYR SKIN LESIONS, 2 TO 4 01/01/20 21 17124-ADOL SKIN LESIONS, 2 TO 4 04/15/19 22 HEMOGLOBIN A1C (GLYCOHEMOGLOBIN) 020 Next Appt Details Provider Name:Stephanie Bedoya , 08/15/2024 11:00:00 AM, [address] [place], [address], Insurance Providers Payer Name Payer Address Payer Phone Subscriber Number Group Number Insured Name Patient Relationship to Insured Coverage Start Date Coverage End Date Medicare National [employer]t [employer] [address] [place] [address] [id number] Florentino Bean Self - patient is the insured [employer] ([employer]) [address] [place] [address] [phone] [id number] Florentino Bean Self - patient is the insured 0 Medical (General) History Medical History History ICD Code CAD (Cholesterol) Cancer Cataracts Diabetic Gout Heart disease High blood pressure Lung disease Poor circulation Psoriasis Warts Measles Chicken pox Vascular grafts Transfusions Surgical History Surgery Date(Month/Year) right above the knee amputation 2003 parotidectomy 05/30/2015 Hospitalization History Reason Date(Month/[place] [facility] [place] [facility] - Knee Amputation 200 4
--- OUTSIDE RECORDS SUMMARY | 2024-05-17 13:57 | XMS_ITS ---
Author Organization [facility] Address [address] [place] [address] Care Team Providers Care Mechanic Marine Engine Name Role Phone Flakita Stewart Primary Care Provider Unavailabl e Black, Stephanie Unavailable [phone] Allergies Allergen (clinical drug ingredient) Drug/Non Drug [...] Ordered Date Performed Result Body Sit e 84251-VXBLIQN NAIL, 1-5 02/15/2024 N/A 44565-FHCL SKIN LESIONS, 2 TO 4 02/15/2024 N/A Encounters Encounter Location Date Provider Diagnosis [facility] [address] [address] 02/15/2024 Stephanie Bedoya Tinea unguium B35.1 and Type 2 diabetes mellitus with diabetic polyneuropathy E11.42 Assessments Encounter Date Diagnosis (ICD Code) Assessment Notes Treatment Notes Treatment Clinical Notes Section Notes 02/15/2024 Tinea unguium (ICD-10 - B35.1) 02/15/2024 Type 2 diabetes mellitus with diabetic polyneuropathy (ICD-10 - E11.42) Plan Of Treatment Pending Test Test Name Order Date 50833-YSLRNUX NAIL, 1-5 02/15/2024 66619-FRTV SKIN LESIONS, 2 TO 4 02/15/20 24 Next Appt Details Follow Up: prn, Reason: Provider Name:Stephanie Bedoya , 08/15/2024 11:00:00 AM, [address] [place] [address], [phone], Procedure Notes * Category Sub-Category Detail Notes Keratoma Treatment Parring or Cutting o f Benign Hyperkeratotic Lesion(s) (-56) 2-4 Lesions - The Benign hyperkeratotic lesions, (3) in total, locations as stated and described in exam, were pared, and/or cut utilizing a sterile 15 blade, tissue nippers, and/or power dremel instrumentation - 77387 Debride Nails 1-5 Procedure: Performance of this nail treatment by a nonprofessional would put this patients foot and overall health at risk. Therefore, debridement to affected nail(s), as described in exam, was performed extensively to reduce/remove overall nail length, girth, thickness, subungual debris, and necrotic tissue, by manual and/or electrical means through the use of a nail nipper and/or dremel-type lens grinder rough, to a more viable healthy nail plate [...] necessary to maintain effective symptomatic relief - 26794 Progress Notes * Florentino BEAN RDOB: 8 (88 yo M)Acc No.[id number]:02/15/2024 Progress Note Patient:?RYLEE Florentino Ivana Provider:?Stephanie Bedoya DPM :1935???Age:88 Y???Sex:Male Darryl e:02/15/2024 Address:[address] [place], [place] [id number] Pcp:Flakita Stewart Subjective: * Chief Complaints: * [...] E11.42 (Primary)??? Plan: * Treatment: 2.?Tinea unguium?Procedure: 81405-LFPGTWR NAIL, 1-5 * Procedures:?Debride Nails 1-5:?Procedure:?Performance of this nail treatment by a nonprofessional would put this patients foot and overall health at risk. Therefore, debridement to affected nail(s), as described in exam, was performed extensively to reduce/remove overall nail length, girth, thickness, subungual debris, and necrotic tissue, by manual and/or electrical means through the use of a nail nipper and/or dremel-type lens grinder rough, to a more viable healthy nail plate [...] necessary to maintain effective symptomatic relief - 80615.?Keratoma Treatment:?Parring or Cutting of Benign Hyperkeratotic Lesion(s)?(-56) 2-4 Lesions - The Benign hyperkeratotic lesions, (3) in total, locations as stated and described in exam, were pared, and/or cut utilizing a sterile 15 blade, tissue nippers, and/or power dremel instrumentation - 36367.? * Procedure Codes:?28614 DEBRI DE NAIL, 1-5, Modifiers: Q7 88660 TRIM SKIN LESIONS, 2 TO 4, Modifiers: Q7 * Follow Up:?prn * Images: * Sign off status: Completed true * Provider:?Stephanie Bedoya DPM Date:?2023 Generated for Jessie chapa/Abilio/eTransmitting on:?05/17/2024 01:56 PM EST History and Physical [...]
== END 2024-05-17 11:50 | disposition home or self-care (01) ==
LOC: HO.ACS 11:06
PROVIDERS: PCP Internal Medicine; Visit Provider Internal Medicine
DX: Z79.01 Long term (current) use of anticoagulants (principal)

== ENCOUNTER → 2024-05-17 11:06 | Outpatient (BNVA) | payer MEDICARE, OTHER, SELFPAY | PROVIDERS: PCP Internal Medicine; Visit Provider Internal Medicine | DX: E11.22 Type 2 diabetes mellitus with diabetic chronic kidney disease (principal); I12.9 Hypertensive chronic kidney disease with stage 1 through stage 4 chronic kidney disease, or unspecified chronic kidney disease; N18.30 Chronic kidney disease, stage 3 unspecified; E11.65 Type 2 diabetes mellitus with hyperglycemia; I25.10 Atherosclerotic heart disease of native coronary artery without angina pectoris; E78.00 Pure hypercholesterolemia, unspecified; J43.9 Emphysema, unspecified; D64.89 Other specified anemias; I35.0 Nonrheumatic aortic (valve) stenosis; I25.2 Old myocardial infarction; Z79.899 Other long term (current) drug therapy; I48.0 Paroxysmal atrial fibrillation; Z79.01 Long term (current) use of anticoagulants; Z51.81 Encounter for therapeutic drug level monitoring | CPT/HCPCS: 83036; 85610; 96127; 99211; 99212 ==

== ENCOUNTER 2024-05-17 12:23 | Outpatient (AMB) | payer MEDICARE, OTHER, SELFPAY ==
--- NOTE | 2024-05-17 12:36 | MHC.PC.OV ---
Vital Signs 05/17/24 12:38 Height 6 ft Weight 174 lb 4 oz BMI 23.6 BP 120/62 Blood Pressure Location Lt brachial Position Sitting Pulse 65 Pulse Source Pulse Oximeter Temp 97.4 F Temp Source Temporal Artery Scan Pulse Oximetry (%) 96 Oxygen Delivery Method Room Air Intake Visit Reasons: cad Intake Note: Patient is here to follow up on CAD. Insulator Technician Required: No Tube Lancer: Present Accompanied by: Spouse Allergies lisinopril [LISINOPRIL] Allergy (Unknown, Verified 05/17/24 12:37) HIVES Tobacco use date assessed: 05/17/24 Fall risk assessment: No Falls in past year Last assessed Fall Risk: 05/17/24 Dental Screening Dental Screen Date: 05/17/24 Did you have a dental visit in the last 12 months?: No Did you have a dental problem in the last 6 months where you did not have access to dental care?: No Was dental information given to patient?: Patient has dentist [facility] Medical History (Updated 05/17/24 @ 12:49 by Flakita Stewart MD) Medicare annual wellness visit, initial Aortic stenosis 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 Mother No problems noted. Social History Household Members: Spouse Housing: House Do you presently have visiting nurse or other home services: No Alcohol intake: never Patient Tobacco Use Status: Former Tobacco user Tobacco use type: Cigarette Years Smoked: quit 1987 e-Cigarette/Vaping Use: Never Used Second Hand Smoke Exposure: Yes service: No Current occupational status: retired Cognitive needs: Yes (cane/walker/wheelchair) Hearing needs: Yes Vision needs: Yes (Glasses) Questionnaire PHQ-9 Over the last 2 weeks, how often have you been bothered by any of the following problems? 1. Little interest or pleasure in doing things: not at all 2. Feeling down, depressed, or hopeless: not at all 3. Trouble falling or staying asleep, or sleeping too much: not at all 4. Feeling tired or having little energy: not at all 5. Poor appetite or overeating: not at all 6. Feeling bad about yourself - or that you are a failure or have let yourself or your family down: not at all 7. Trouble concentrating on things, such as reading the newspaper or watching television: not at all 8. Moving or speaking so slowly that other people could have noticed. Or the opposite - being so fidgety or restless that you have been moving around a lot more than usual: not at all 9. Thoughts that you would be better off or of hurting yourself in some way: not at all Total score: 0 Depression Screening Interpretation: Negative Depression Screening Done: Yes Source: Developed by Drs. Omega Negron, Shannan Couch, Armond Ceballos and colleagues, with an educational klaudia from [employer]. Thrive Questionnaire Date Thrive assessed: 05/17/24 I am a: Patient What is your living situation today?: I have a steady place to live Within the past 12 months, did the food you bought not last and you didn't have the money to get more?: Never true Within the past 12 months, did you worry whether your food would run out before you got money to buy more?: Never true Do you have trouble paying for medicines?: No Do you have trouble getting transportation to medical appointments?: No Do you have trouble paying your heating and electricity bill?: No Do you have trouble taking care of your child, family member or friend?: No Do you have trouble with day-to-day activities such as bathing, preparing meals, shopping, managing finances, etc.?: No Are you currently unemployed and looking for a job?: No Are you interested in more education?: No Please select the resources that you would like help with: None Currently or been in a relationship where the following occur: No concerns reported THRIVE Score: 0 AUDIT C Alcohol Use Questionnaire (AUDIT-C) 1. How often do you have a drink containing alcohol?: Never Total Score: 0 ANDREY-7 AMB Questionnaire ANDREY-7 Date ANDREY - 7 assessed: 05/17/24 Feeling nervous, anxious, or on edge: 0 = Not at all Not being able to stop or control worryin = Not at all Worrying too much about different things: 0 = Not at all Trouble relaxin = Not at all Being so restless that it is hard to sit still: 0 = Not at all Becoming easily annoyed or irritable: 0 = Not at all Feeling afraid as if something awful might happen: 0 = Not at all Total ANDREY-7 score (0-4 normal; 5-9 mild; 10-14 moderate; 15-21 severe): 0 Source: Developed by Drs. Omega Negron, Shannan Couch, Armond Ceballos and colleagues, with an educational klaudia from [employer]. Physical exam (Primary Care) Vital Signs: Last Vital Signs Temp 97.4 F 05/17/24 12:38 Oxygen Delivery Method Room Air 05/17/24 12:38 BMI result Body Mass Index 23.6 Tobacco/Smoking Status: Tobacco use Status Tobacco use date assessed 05/17/24 05/17/24 12:42 Patient Tobacco Use Status Former Tobacco user 05/17/24 12:42 Tobacco use type Cigarette 05/17/24 12:42 e-Cigarette/Vaping Use Never Used 05/17/24 12:42 PHQ-9: PHQ-9 Score PHQ-9: Total score 0 05/17/24 12:42 Depression Screening Interpretation: Negative Thrive Assessment: Date of Thrive Assessment Date Thrive assessed 05/17/24 05/17/24 12:42 Currently or been in a relationship where the following occur: No concerns reported Const General: alert; No acute distress Eyes Conjunctivae: conjunctivae normal Resp Auscultation: clear to auscultation bilaterally Cardio Rate: regular rate Rhythm: regular rhythm GI Inspection: Yes normal to inspection Extrem General: Yes normal to inspection and No edema Results AMB Hemoglobin A1c AMB Hemoglobin A1c 5.7 % Last Edit by PATRICK Treviño on 05/17/24 12:51 Coding Level of Care Code Est Pt Level 4 (80681) Complex EM visit Add On G2211 Diagnoses Stage 3 chronic kidney disease, unspecified whether stage 3a or 3b CKD N18.30 Chronic kidney disease stage: stage 3 (moderate) Chronic kidney disease stage 3 subtype: unspecified whether 3a or 3b Type 2 diabetes mellitus with hyperglycemia, without long-term current use of insulin E11.65 Diabetes mellitus mcc insulin use: without mcc use Coronary artery disease involving [place] coronary artery of [place] heart without angina pectoris I25.10 Coronary Disease-Associated Artery/Lesion type: [place] artery [place] vs. transplanted heart: [place] heart Associated angina: without angina Essential hypertension I10 Hypertension type: essential hypertension Hypercholesterolemia E78.00 Paroxysmal atrial fibrillation I48.0 Pulmonary emphysema, unspecified emphysema type J43.9 COPD type: emphysema Emphysema type: unspecified Anemia due to other cause, not classified D64.89 Anemia type: other cause Other causes of anemia: other cause, not classified Nonrheumatic aortic valve stenosis I35.0 Cardiac valve disease etiology: nonrheumatic Assessment & Plan Assessment & Plan (1) Chronic kidney disease: Comment: Stage IIIB Code(s): N18.9 - Chronic kidney disease, unspecified Category: Medical Qualifiers: Chronic kidney disease stage: stage 3 (moderate) Chronic kidney disease stage 3 subtype: unspecified whether 3a or 3b Qualified Code(s): N18.30 - Chronic kidney disease, stage 3 unspecified Plan: Patient follows up with Nephrology and adjustment of medication will continue to monitor. Discontinued hydrochlorothiazide. (2) Type 2 diabetes mellitus with hyperglycemia: Code(s): E11.65 - Type 2 diabetes mellitus with hyperglycemia Category: Medical Qualifiers: Diabetes mellitus rodent exterminator insulin use: without mcc use Qualified Code(s): E11.65 - Type 2 diabetes mellitus with hyperglycemia Plan: Decrease the amount of carbohydrate intake, pasta, bread, rice and potatoes are all sugar and that is aside from all the sweet stuff, remember that fruits are good but they are Sweet also. Hemoglobin A1c goal of less than 7.0 on Farxiga at 5 mg once a day (3) Coronary artery disease: Comment: An STEMI December 2012 BMS [address]CA stent Dr. Chaudhari Code(s): I25.10 - Atherosclerotic heart disease of [place] coronary artery without angina pectoris Category: Medical Qualifiers: Coronary Disease-Associated Artery/Lesion type: [place] artery [place] vs. transplanted heart: [place] heart Associated angina: without angina Qualified Code(s): I25.10 - Atherosclerotic heart disease of [place] coronary artery without angina pectoris Plan: Control the cholesterol, weight, blood pressure, diabetes on anticoagulation presently (4) Hypertension: Code(s): I10 - Essential (primary) hypertension Category: Medical Qualifiers: Hypertension type: essential hypertension Qualified Code(s): I10 - Essential (primary) hypertension Plan: Continue with blood pressure medication. Decrease salt intake and exercise on losartan 25 mg once a metoprolol 50 mg twice a day amlodipine 10 mg once a day (5) Hypercholesterolemia: Code(s): E78.00 - Pure hypercholesterolemia, unspecified Category: Medical Plan: Avoid fried foods, chicken skin, eggs, butter margarine, pastries and meat. 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 The calculated ejection fraction is 54% by biplane method. - The basal inferior and basal inferolateral segments are akinetic. - There is moderate to severe aortic valve stenosis. 1.0 cm2 October 2022 1.11 cm squared 10/2023 0.78 Code(s): I35.0 - Nonrheumatic aortic (valve) stenosis Category: Medical Qualifiers: Cardiac valve disease etiology: nonrheumatic Qualified Code(s): I35.0 - Nonrheumatic aortic (valve) stenosis Plan: Discussed concerns on aortic stenosis and seeing Cardiology Plan History of Present Illness The patient is an 88-year-old male presenting with a follow-up visit for the management of chronic conditions including diabetes mellitus, coronary artery disease, hypertension, hypercholesterolemia, COPD, atrial fibrillation, chronic kidney disease stage 3B, and aortic stenosis. Of significant concern is the management of aortic stenosis, confirmed via echocardiogram with the last measurement of valve opening at 0.78 cm. The patient experiences shortness of breath and fatigue related to this condition. Recent consultations with cardiology in April advised further echocardiographic evaluations, although scheduling is pending. Chronic kidney disease is managed following a nephrology consultation, with discontinuation of hydrochlorothiazide and initiation of Farxiga. Additionally, the patient's medication regimen includes losartan and metoprolol. Anemia was noted in the most recent laboratory results, with hemoglobin at 9.8 g/dL, but no specific intervention was detailed during the visit. The patient expresses frustration with the ongoing management of multiple conditions. The most recent cholesterol management involves atorvastatin, and a lipid panel in October reported an LDL level of 42 mg/dL. Overall, the patient maintains stability in blood sugar levels, reflected by a hemoglobin A1c of 6.5 in January. Health Maintenance - Continue daily intake of atorvastatin for cholesterol management, with last LDL recorded at 42 mg/dL. - Maintain hemoglobin A1c below 7.0, with recent measures at 5.7 - Advise on monitoring and management of chronic kidney disease as per nephrology's guidance. - Blood sugar control with medications and dietary modifications. Social History - Reports frustration with health-related quality of life due to multiple chronic conditions. - Patient adheres to a diet that includes oatmeal and balanced meals with occasional assistance from family. Review of Systems - Cardiovascular: Reports shortness of breath and fatigue. - Musculoskeletal: Reports swelling, uses support stockings. Physical Exam - Cardiovascular- Swelling noted; confirmed use of support stockings for management. Results - Labs: Hemoglobin 9.8 g/dL, Creatinine 2.05 mg/dL, LDL 42 mg/dL. - Tests: Upcoming echocardiogram needed to assess progression of aortic stenosis. Plan 1. 0. The patient requires further evaluation for aortic stenosis, with an echocardiogram not yet scheduled. The patient's hypertension and hypercholesterolemia are controlled with losartan and atorvastatin, respectively. Assessment and management of chronic kidney disease appear favorable following nephrology's latest guidance. The risk of concurrent anemia warrants observation. Continued coordination with cardiology and monitoring is essential for managing coronary conditions and potential valve intervention. Recommendations on anticoagulant administration are contingent on cardiology input, adjusting for the patient's ongoing conditions.: Patient was informed and verbally consented to the use of an ambient scribe for clinic note documentation during this visit. Discussion Notes During this visit, we discussed the management of aortic stenosis and the necessity of a follow-up echocardiogram to evaluate progression. The patient understands the non-urgent scheduling of this test. The implications of managing chronic kidney disease via nephrology's recommendations were reviewed, including maintaining current medications and adjusting as necessary. We discussed the transient nature of swelling despite support stocking use. Additionally, we deliberated on medication compliance, especially regarding further management of anemia without introducing new treatment modalities. Exploration of further options for potential aortic valve procedures was emphasized, highlighting the minimal invasiveness compared to traditional methods. Benefits and considerations of cardiovascular health, especially with the overlap of COPD and blood pressure management, were explained. We agreed upon maintaining current lifestyle modifications with minimal external contact to mitigate infection risk. Future follow-ups with cardiology for valve concerns are planned accordingly. Patient Instructions - Continue taking medications as prescribed. - Monitor blood sugar regularly and maintain a balanced diet. - Use support stockings to manage swelling. - Limit exposure to outside visitors and maintain hygiene to avoid infections. - Await scheduling for an echocardiogram to monitor aortic valve status. - Follow-up with cardiology and nephrology as advised. - Report any significant changes in symptoms to my office promptly. Orders: Orders AMB Hemoglobin A1c Today E11.65 - Type 2 diabetes mellitus with hyperglycemia CA echo transthoracic complete Today I35.0 - Nonrheumatic aortic (valve) stenosis
[2024-05-17 12:38] VITALS: BP 120/62; PULSE 65; TEMP 36.3; O2SAT 96; BMI 23.6
== END 2024-05-17 13:11 | disposition home or self-care (01) ==
PROVIDERS: PCP Internal Medicine; Visit Provider Internal Medicine
DX: I12.9 Hypertensive chronic kidney disease with stage 1 through stage 4 chronic kidney disease, or unspecified chronic kidney disease (principal); N18.30 Chronic kidney disease, stage 3 unspecified; E11.65 Type 2 diabetes mellitus with hyperglycemia; I48.0 Paroxysmal atrial fibrillation; J43.9 Emphysema, unspecified; I25.10 Atherosclerotic heart disease of native coronary artery without angina pectoris; E78.00 Pure hypercholesterolemia, unspecified; D64.89 Other specified anemias; I35.0 Nonrheumatic aortic (valve) stenosis

== ENCOUNTER 2024-06-06 13:55 | Outpatient (REF) | payer SELFPAY | END 2024-06-06 13:56 | disposition home or self-care (01) | LOC: HO.HAP 13:55 | PROVIDERS: Visit Provider Internal Medicine | DX: Z46.1 Encounter for fitting and adjustment of hearing aid (principal); H90.3 Sensorineural hearing loss, bilateral | CPT/HCPCS: V5261; V5299 ==

== ENCOUNTER 2024-06-08 11:21 | Outpatient (AMB) | payer OTHER, SELFPAY ==
--- NOTE | 2024-06-08 11:45 | MHC.OFFVISCO ---
Intake Intake Visit Reasons: Anticoagulation Allergies lisinopril [LISINOPRIL] Allergy (Unknown, Verified 06/08/24 11:35) HIVES Medication List - Last Reconciled 06/08/24 by Elinor Obrien RN albuterol sulfate 90 mcg/actuation 2 puffs inhalation Q4H PRN amlodipine 10 mg PO DAILY 90 days atorvastatin 40 mg PO DAILY blood sugar diagnostic (FreeStyle Lite Strips) ONCE A DAY blood-glucose meter (FreeStyle Lite Meter kit) ONCE A DAY cholecalciferol (vitamin D3) 50 mcg PO DAILY dapagliflozin propanediol (Farxiga) 5 mg PO DAILY docusate sodium (Colace) 100 mg PO BEDTIME fluticasone propion-salmeterol 500-50 mcg/dose (Wixela Inhub) 1 inh inhalation BID lancets As directed lancets (FreeStyle Lancets) ONCE A DAY losartan 25 mg PO DAILY [MANUAL WHEELCHAIR As directed] metoprolol tartrate 50 mg PO BID tamsulosin 0.4 mg PO BEDTIME 90 days tramadol 50 mg PO TID PRN 30 days umeclidinium 62.5 mcg/actuation (Incruse Ellipta) 1 inh PO BEDTIME warfarin See Protocol 2.5 mg orally 5mg x 1 day/ 2.5mg x 6 days; Nursing Note INR: 2.0- in therapeutic range of 2-3 Medications and supplements reviewed- no changes No changes in health, diet, medications, or supplements, Denies any signs and symptoms of bleeding or bruising or clotting. Bleeding, bruising, clotting discussed Nutritional guidance given - no greens for 2-3 days, eat reds to raise Dose: 5mg x 1. 2.5mg x 6 F/U INR: 3 weeks Patient verbalizes understanding of instructions given pt amb to acs with walker, accompanied by spouse Anti-Coag Initial Assessment Social Hx Patient Tobacco Use Status: Former Tobacco user Tobacco use type: Cigarette alcohol intake: never Coding Level of Care Code Est Patient Level 1 Diagnoses Current use of anticoagulant therapy Z79.01 Results AMB INR Fingerstick AMB INR Fingerstick 2.0 Last Edit by Elinor Obrien RN on 06/08/24 11:47 interface delay Assessment & Plan Assessment & Plan (1) Current use of anticoagulant therapy: Code(s): Z79.01 - intermediate frame tender (current) use of anticoagulants Category: Medical
--- OUTSIDE RECORDS SUMMARY | 2024-06-08 13:41 | XMS_ITS ---
Author Organization [facility] Address [address] [place] [address] Care Team Providers Care [place] Actor Name Role Phone Flakita Stewart Primary Care Provider Stephanie Pagan [phone] John Encounters Encounter Location Date Provider Diagnosis [address] [address] 12/14/2023 Stephanie Bedoya Plan Of Treatment Next Appt Details Provider Name:Stephanie Miller Bedoya , 08/15/2024 11:00:00 AM, [address] [place] [address], [phone], Progress Notes * Florentino BEAN RDOB: (88 yo M)Acc No.[id number]:12/14/2023 Progress Note Patient:?Florentino BEAN Provider:?Stephanie Bedoya DPM :1935???Age:88 Y???Sex:Male Darryl e:12/14/2023 Address:[address] [place] [address] Pcp:Flakita Stewart Subjective: * Chief Complaints: * [...] Bedoya DPM Date:?2023 Generated for Jessie chapa/Abilio/Gin on:?06/08/2024 01:41 PM EDT
--- OUTSIDE RECORDS SUMMARY | 2024-06-08 13:41 | XMS_ITS ---
Author Organization [facility] Address [address] [place] [address] Care Team Providers Care Copy Technician Name Role Phone Flakita Stewart Primary Care Provider Unavailabl e Black, Stephanie Unavailable [phone] Allergies Allergen (clinical drug ingredient) Drug/Non Drug [...] Ordered Date Performed Result Body Sit e 24429-HPJPMUB NAIL, 1-5 02/15/2024 N/A 43937-ZALO SKIN LESIONS, 2 TO 4 02/15/2024 N/A Encounters Encounter Location Date Provider Diagnosis [facility] [address] [address] 02/15/2024 Stephanie Black Tinea unguium B35.1 and Type 2 diabetes mellitus with diabetic polyneuropathy E11.42 Assessments Encounter Date Diagnosis (ICD Code) Assessment Notes Treatment Notes Treatment Clinical Notes Section Notes 02/15/2024 Tinea unguium (ICD-10 - B35.1) 02/15/2024 Type 2 diabetes mellitus with diabetic polyneuropathy (ICD-10 - E11.42) Plan Of Treatment Pending Test Test Name Order Date 38060-JUUCBHF NAIL, 1-5 02/15/2024 93873-CUEO SKIN LESIONS, 2 TO 4 02/15/20 24 Next Appt Details Follow Up: prn, Reason: Provider Name:Stephanie Bedoya , 08/15/2024 11:00:00 AM, [address] [place] [address], [phone], Procedure Notes * Category Sub-Category Detail Notes Keratoma Treatment Parring or Cutting o f Benign Hyperkeratotic Lesion(s) (-56) 2-4 Lesions - The Benign hyperkeratotic lesions, (3) in total, locations as stated and described in exam, were pared, and/or cut utilizing a sterile 15 blade, tissue nippers, and/or power dremel instrumentation - 07910 Debride Nails 1-5 Procedure: Performance of this nail treatment by a nonprofessional would put this patients foot and overall health at risk. Therefore, debridement to affected nail(s), as described in exam, was performed extensively to reduce/remove overall nail length, girth, thickness, subungual debris, and necrotic tissue, by manual and/or electrical means through the use of a nail nipper and/or dremel-type broach grinder, to a more viable healthy nail [...] necessary to maintain effective symptomatic relief - 72634 Progress Notes * Florentino BEAN RDOB: 8 (88 yo M)Acc No.[id number]:02/15/2024 Progress Note Patient:?Florentino BEAN Provider:?Stephanie Bedoya DPM :1935???Age:88 Y???Sex:Male Darryl e:02/15/2024 Address:[address] [place], [place] [address] Pcp:Flakita Stewart Subjective: * Chief Complaints: * [...] E11.42 (Primary)??? Plan: * Treatment: 2.?Tinea unguium?Procedure: 62068-AGMSNCX NAIL, 1-5 * Procedures:?Debride Nails 1-5:?Procedure:?Performance of this nail treatment by a nonprofessional would put this patients foot and overall health at risk. Therefore, debridement to affected nail(s), as described in exam, was performed extensively to reduce/remove overall nail length, girth, thickness, subungual debris, and necrotic tissue, by manual and/or electrical means through the use of a nail nipper and/or dremel-type broach grinder, to a more viable healthy nail [...] necessary to maintain effective symptomatic relief - 56852.?Keratoma Treatment:?Parring or Cutting of Benign Hyperkeratotic Lesion(s)?(-56) 2-4 Lesions - The Benign hyperkeratotic lesions, (3) in total, locations as stated and described in exam, were pared, and/or cut utilizing a sterile 15 blade, tissue nippers, and/or power dremel instrumentation - 23231.? * Procedure Codes:?68885 DEBRI DE NAIL, 1-5, Modifiers: Q7 75671 TRIM SKIN LESIONS, 2 TO 4, Modifiers: Q7 * Follow Up:?prn * Images: * Sign off status: Completed true * Provider:?Stephanie Bedoya DPM Date:?2023 Generated for Jessie chapa/Abilio/eTransmitting on:?06/08/2024 01:41 PM EDT History and Physical Notes * HPI (History [...]
--- OUTSIDE RECORDS SUMMARY | 2024-06-08 13:42 | XMS_ITS | Data Portability ---
Author Organization [place] [facility], Allergy Address [address] [place] [address] Assessment Encounter Date Assessment Date Assessment LastModified [...] Details Recorded Time Weakness of face muscles 82315303 Active 2018 sac upper branches facial nerve during parotid resection 2015 MAHAD CONLEY MD [address] [place] [address], [place], [address] [facility] [place] [facility] 4 10:09:47 History of malignant neoplasm of digestive organ 48483955387 182376 Active 2015 Personal history of malignant neoplasm of other digestive organs; Note: Changed from C07 to Z85.09 (03/21/2019 12:19 PM) , Changed from R22.0 to R22.1 ( 6 8:48 AM) , Changed from R22.1 to C07 ( 6 8:49 AM) , Date Diagnosed : 04/26/2015 10:05 AM (R22.0) Not Available [facility] 4 03:22:12 Postopera tive follow-up visit Active 2015 Post op; Note: Date Diagnosed : 06/01/2015 11:22 AM (V67.00) Not Available [facility] 4 03:22:12 Follow-up visit Active 2019 Encounter for follow-up examinati on after completed treatment for malignant neoplasm; Note: Date Diagnosed : 09/13/2019 4:00 PM (Z08) Encount er for follow-up examinati on after completed treatment for condition s other than malignant neoplasm; Note: Date Diagnosed : 06/01/2015 2:15 PM (Z09) ; Start Date : 6 Not Available [facility] 4 03:22:12 History of malignant neoplasm of parotid gland 96917672613 9102 Active 2023 Primary tumor location: right parotid SCCA, 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 Medical Equipment None Reported. Allergies Allergen ID Allergen Name Allergen Category Reaction Reaction Severity Criticality Documentation Date Start Date Code Code System Note Provider Name and Address Organization Details Recorded Time 806872 lisinopri l medicatio n other Not available Not available 07/28/2023 25789 RxNorm React ion: unkno wn, unspe cifie d;; Not Available [facility] 4 01:24:44 Medications Name Sig Start Date [...] mg capsule 03/21 completed Medicati on ID: [id number] D uration Value: 5 Reason: () Brand Name: doxycycl ine hyclate Send Method: E-Prescr ibed Sub s Allowed: subs OK Speci al Instruct ion: TAKE ONE CAPSULE BY MOUTH TWICE A DAY FOR 5 DAYS Med [facility] do[facility]cycl ine hyclate Not Available Not Available Not Available FreeStyle Lancets 28 gauge TEST ONCE A DAY active Not Available Not Available No t Available terazosin 1 mg capsule 03/17 completed Medicati on ID: [id number] D uration Value: 90 Brand Name: terazosi [...] 500 mg capsule active Medicati on ID: 547478 B rand Name: cephalex in Send Method: [...] topical ointment 03/21 completed Medicati on ID: 720818 D uration Value: 7 Reason: () Brand [...] by mouth 03/21 completed Medicati on ID: [id number] P rescribe d By Name: Andi Travis nd Name: Percocet Send Method: E-Prescr ibed Sub s Allowed: subs OK Medic ationGen ericName : Percocet Not Available Not Available Not Available ketoconaz ole 2 % topical cream 03/17 completed Medicati on ID: 668908 D uration Value: 15 Brand Name: ketocona [...] eye oint 03/21 completed Medicati on ID: [id number] D uration Value: 7 Reason: () Brand Name: neomycin -polymyx in B-dexame th Send Method: E-Prescr ibed Sub s Allowed: subs OK Speci al Instruct ion: APPLY 1/4 INCH TO AFFECTED EYELID AT BEDTIME Medicati onGeneri cName: neomycin -polymyx in B-dexame th Not Available Not Available Not Available metoprolo l tartrate 25 mg tablet 03/17 completed Medicati on ID: [id number] D uration Value: 90 Brand Name: metoprol ol tartrate Send Method: E-Prescr ibed Sub s Allowed: subs OK Speci al Instruct ion: 8-15 TAKE 1 TABLET TWICE DAILY ORALLY 90 Medic ationGen ericName : metoprol ol tartrate Not Available Not Available Not Available Spiriva with HandiHale r 18 mcg and inhalatio n capsules 03/17 completed Medicati on ID: [id number] D uration Value: 90 Brand Name: Spiriva [...] Updated DateTime 03/15/2024 182.88 cm 23.3 kg/m2 89195.89 g Nazanin Davis [place] [facility] 03/15/2024 13:11:30 Social History None recorded. Functional Status None recorded. Mental Status None recorded. Family History Nothing Reported. Medical History No medical history recorded. Past Encounters Encounter ID Performer Location Encounter Start Date Encounter Closed Date Diagnosis/Indication Diagnosis SNOMED-CT Code Diagnosis ICD10 Code Diagnosis Note [id number] MAHAD CONLEY MD [facility] [address] [address] 03/15/2024 12:48:06 03/15/2024 13:31:30 History of malignant neoplasm of parotid gland [id number] 54692 Z85.818 Weakness o f face muscles 08560060 R29.810 Health Concerns Section Related Observation LastModified by Organization Shelly cortes LastModified Time None Recorded Concern Status LastModified by Organization Details LastModified Time None Recorded Advance Directives Directive None Recorded Payers Encounter Date Sequence Insurance Name Policy Number Policy [place] Covered Member ID [place] Member ID Guarantor Name 03/15/2024 2 [facility] [id number] Florentino Heath [place] [id number] Florentino Bean 03/15/2024 1 [place] [employer] [employer] Florentino Bean [id number] Florentino Bean Notes Date Note Type Note Provider Name and Address Organization Details Recorded Time 03/15/2024 text/html Primary tumor location: right parotid SCCA, metastatic from right taoism skinTreatment: right parotid neck dissection, sac upper branches facialDate of treatment completion:Oncology team: Barry Conley/Dr Alvarez no health changeswas offered left eye repair of ectropion - did not pursue previously but interested now MAHAD CONLEY MD [address] [place] [address], [place], [address], [facility] - [facility] 03/15/2024 13:28:40
--- OUTSIDE RECORDS SUMMARY | 2024-06-08 13:42 | XMS_ITS ---
Author Organization [facility] Address [address] [place] [address] Care Team Providers Care Locomotive Oiler Name Role Phone Flakita Stewart Primary Care Provider Unavailabl e Black, Stephanie Unavailable [phone] Allergies Allergen (clinical drug ingredient) Drug/Non Drug [...] Ordered Date Performed Result Body Sit e 21909-BPASOPD NAIL, 1-5 09/03/2023 N/A 37437-TPIN SKIN LESIONS, 2 TO 4 09/03/2023 N/A Encounters Encounter Location Date Provider Diagnosis [facility] [address] [address] 09/03/2023 Stephanie Black Tinea unguium B35.1 and Type 2 diabetes mellitus with diabetic polyneuropathy E11.42 Assessments Encounter Date Diagnosis (ICD Code) Assessment Notes Treatment Notes Treatment Clinical Notes Section Notes 09/03/2023 Tinea unguium (ICD-10 - B35.1) 09/03/2023 Type 2 diabetes mellitus with diabetic polyneuropathy (ICD-10 - E11.42) Plan Of Treatment Pending Test Test Name Order Date 80500-TRXECKY NAIL, 1-5 09/03/2023 46731-QSHC SKIN LESIONS, 2 TO 4 09/03/19 24 Next Appt Details Follow Up: prn, Reason: Provider Name:Stephanie Miller Aureliano , 08/15/2024 11:00:00 AM, [address] [place] [address] [place], [phone], Procedure Notes * Category Sub-Category Detail Notes Keratoma Treatment Parring or Cutting o f Benign Hyperkeratotic Lesion(s) 29740 (2-4 Lesions) - The Benign hyperkeratotic lesions, [...] as necessary. Patient chooses, no pharmaceutical tx (95943) Progress Notes * Florentino BEAN RDOB: 8 (87 yo M)Acc No.[id number]:09/03/2023 Progress Note Patient:?Florentino Bean R Provider:?Stephanie Bedoya DPM :1935???Age:87 Y???Sex:Male Darryl e:09/03/2023 Address:[address] [place], [place] [address] Pcp:Flakita Stewart Subjective: * Chief Complaints: * [...] E11.42 (Primary)? Plan: * Treatment: 2.?Tinea unguium?Procedure: 89608-XJLGOIE NAIL, 1-5 * Procedures:?Debride Nails 1-5:?Procedure:?Nail debridement performed extensively to reduce/remove overall nail length and girth, subungual debris, and necrotic tissue, by manual and electrical means by use of a nail nipper and/or dremel, to more viable healthy nail plate or bed tissue 1-5. Silver nitrate used for any petechial bleeding as necessary. Patient chooses, no pharmaceutical tx (54437).?Keratoma Treatment:?Parring or Cutting of Benign Hyperkeratotic Lesion(s)?42032 (2-4 Lesions) - The Benign hyperkeratotic lesions, as described above were pared, and/or cut utilizing a sterile #15 blade, tissue nippers, and/or dremel.? * Procedure Codes:?96157 DEBRI DE NAIL, 1-5, Modifiers: Q7 66358 TRIM SKIN LESIONS, 2 TO 4, Modifiers: Q7 * Follow Up:?prn * Images: * Sign off status: Completed true * Provider:?Stephanie Bedoya DPM Date:?2023 Generated for Jessie chapa/Abilio/Gin on:?06/08/2024 01:41 PM EDT History and Physical [...]
--- OUTSIDE RECORDS SUMMARY | 2024-06-08 13:42 | XMS_ITS | Patient Health Record ---
Author Organization [facility] Address [address] [place] [address] Care Team Providers Care Sheet Manager Name Role Phone Flakita Stewart Primary Care Provider Unavailabl e Black, Stephanie Unavailable [phone] Allergies Allergen (clinical drug ingredient) Drug/Non Drug [...] Polyneuropathy due to type 2 diabetes mellitus (707896440) Type 2 diabetes mellitus with diabetic polyneuropathy (E11.42) Active confirmed Problem Ulcer of toe of right foot (disorder) (094044718237481 01) Skin ulcer of toe of right foot, limited to breakdown of skin (L97.511) Active confirmed Problem 295139357 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) Active confirmed Problem Ulcer of toe of left foot (disorder) (460824487770315 02) Skin ulcer of toe of left [...] Ordered Date Performed Result Body Sit e 32127-VVJVCHQ NAIL, 1-5 09/03/2023 N/A 16835-FDMZ SKIN LESIONS, 2 TO 4 09/03/2023 N/A 33388-ERUOTPU NAIL, 1-5 02/15/2024 N/A 31370-QPSO SKIN LESIONS, 2 TO 4 02/15/2024 N/A Encounters Encounter Location Date Provider Diagnosis [facility] [address] 09/03/2023 Stephanie Black Tinea unguium B35.1 and Type 2 diabetes mellitus with diabetic polyneuropathy E11.[address] [address] 02/15/2024 Stephanie Black Tinea unguium B35.1 and Type 2 diabetes mellitus with diabetic polyneuropathy E11.42 Assessments Encounter Date Diagnosis (ICD Code) Assessment Notes Treatment Notes Treatment Clinical Notes Section Notes 09/03/2023 Tinea unguium (ICD-10 - B35.1) 02/15/2024 Tinea unguium (ICD-10 - B35.1) 02/15/2024 Type 2 diabetes mellitus with diabetic polyneuropathy (ICD-10 - E11.42) 09/03/2023 Type 2 diabetes mellitus with diabetic polyneuropathy (ICD-10 - E11.42) Plan Of Treatment Pending Test Test Name Order Date 46176-MBLAWNO NAIL, 6 OR MORE 06/14/2020 65833-RHYQYNR NAIL, 6 OR MORE 12/31/2020 87534-XXUTJYM NAIL, 1-5 09/13/2020 92591-XOYNMLA NAIL, -5 01/23/2020 39714-ZTOAKKF NAIL, -5 04/15/2021 28313-QDCTPVB NAIL, -5 07/15/2021 48793-GICOQCH NAIL, -5 10/14/2021 77025-LYOUEAJ NAIL, 1-5 01/23/2022 29198-ZULCVWY NAIL, 1-5 04/28/2022 97346-PRQTKDE NAIL, 1-5 07/28/2022 43765-FHHGPCC NAIL, 1-5 11/10/2022 86419-DXIOQEN NAIL, 1-5 02/16/2023 34339-RRELTXO NAIL, 1-5 05/21/2023 60990-RXJCWPM NAIL, 1-5 09/03/2023 75697-VLZRSHH NAIL, 1-5 02/15/2024 76731-Egaodqdz Plate 02/16/2023 20359- Debride <25 sq cm 05/21/2023 42016-FYLV SKIN LESIONS, 2 TO 4 05/21/19 24 11835-DMFF SKIN LESIONS, 2 TO 4 09/03/19 24 61049-MMCF SKIN LESIONS, 2 TO 4 02/15/20 24 34507-STOS SKIN LESIONS, 2 TO 4 01/23/20 20 09456-NXCQ SKIN LESIONS, 2 TO 4 02/17/20 23 54930-VEMH SKIN LESIONS, 2 TO 4 11/11/19 23 03626-SDIZ SKIN LESIONS, 2 TO 4 07/29/19 23 62543-VGEK SKIN LESIONS, 2 TO 4 04/28/19 23 32321-AEWT SKIN LESIONS, 2 TO 4 01/24/20 22 02335-KBQL SKIN LESIONS, 2 TO 4 10/15/19 22 49487-EBVT SKIN LESIONS, 2 TO 4 07/16/19 22 32805-UIGH SKIN LESIONS, 2 TO 4 06/15/19 21 17538-GLDF SKIN LESIONS, 2 TO 4 09/14/19 21 57447-WQRD SKIN LESIONS, 2 TO 4 01/01/20 21 21070-HCSD SKIN LESIONS, 2 TO 4 04/15/19 22 HEMOGLOBIN A1C (GLYCOHEMOGLOBIN) 020 Next Appt Details Provider Name:Stephanie Bedoya , 08/15/2024 11:00:00 AM, [address] [facility], [place], [address], Insurance Providers Payer Name Payer Address Payer Phone Subscriber Number Group Number Insured Name Patient Relationship to Insured Coverage Start Date Coverage End Date Medicare National [facility] [address] [place] [address] [id number] Florentino Bean Self - patient is the insured [employer] [address] [place] [address] [id number] Florentino Bean Self - patient is the insured 0 Medical (General) History Medical History History ICD Code CAD (Cholesterol) Cancer Cataracts Diabetic Gout Heart disease High blood pressure Lung disease Poor circulation Psoriasis Warts Measles Chicken pox Vascular grafts Transfusions Surgical History Surgery Date(Month/Year) right above the knee amputation 2004 parotidectomy 05/30/2015 Hospitalization History Reason Date(Month/Year) [facility]- Covid-19 06/06 [facility] - Knee Amputation 200 4
[2024-06-08 15:50] LABS: Prothrombin Time Whole Bld POC 24.4 sec (11.1-13.5)
== END 2024-06-08 12:05 | disposition home or self-care (01) ==
LOC: HO.ACS 11:21
PROVIDERS: PCP Internal Medicine; Visit Provider Internal Medicine Medical Oncology
DX: Z79.01 Long term (current) use of anticoagulants (principal)

== ENCOUNTER → 2024-06-08 11:21 | Outpatient (BNVA) | payer OTHER, SELFPAY | PROVIDERS: PCP Internal Medicine; Visit Provider Internal Medicine Medical Oncology | DX: I48.0 Paroxysmal atrial fibrillation (principal); Z51.81 Encounter for therapeutic drug level monitoring; Z79.01 Long term (current) use of anticoagulants | CPT/HCPCS: 85610; 99211 ==

== ENCOUNTER 2024-06-20 13:58 | Outpatient (AMB) | payer MEDICARE, OTHER, SELFPAY ==
--- NOTE | 2024-06-20 14:04 | MHC.PC.OV ---
Vital Signs 06/20/24 14:06 Height 6 ft Weight 184 lb 2 oz BMI 25.0 BP 140/70 H Blood Pressure Location Lt brachial Position Sitting Pulse 61 Pulse Source Pulse Oximeter Temp 97.5 F Temp Source Temporal Artery Scan Pulse Oximetry (%) 97 Oxygen Delivery Method Room Air Intake Visit Reasons: PREOP Intake Note: Patient is here for a Pre-op for Eye lid surgery scheduled with Dr London on 07/11/24. Supervisor Benzene Refining Required: No Ground Water Technician: Present Accompanied by: Spouse Allergies lisinopril [LISINOPRIL] Allergy (Unknown, Verified 06/20/24 14:23) HIVES Medication List - Last Reconciled 06/20/24 by Taylor Borden PA-C albuterol sulfate 90 mcg/actuation 2 puffs inhalation Q4H PRN amlodipine 10 mg PO DAILY 90 days atorvastatin 40 mg PO DAILY blood sugar diagnostic (FreeStyle Lite Strips) ONCE A DAY blood-glucose meter (FreeStyle Lite Meter kit) ONCE A DAY cholecalciferol (vitamin D3) 50 mcg PO DAILY dapagliflozin propanediol (Farxiga) 5 mg PO DAILY docusate sodium (Colace) 100 mg PO BEDTIME fluticasone propion-salmeterol 500-50 mcg/dose (Wixela Inhub) 1 inh inhalation BID lancets As directed lancets (FreeStyle Lancets) ONCE A DAY losartan 25 mg PO DAILY [MANUAL WHEELCHAIR As directed] metoprolol tartrate 50 mg PO BID tamsulosin 0.4 mg PO BEDTIME 90 days tramadol 50 mg PO TID PRN 30 days umeclidinium 62.5 mcg/actuation (Incruse Ellipta) 1 inh PO BEDTIME warfarin See Protocol 2.5 mg orally 5mg x 1 day/ 2.5mg x 6 days; Tobacco use date assessed: 06/20/24 Fall risk assessment: No Falls in past year Last assessed Fall Risk: 06/20/24 Dental Screening Dental Screen Date: 05/17/24 HPI PREOP HPI Details 88-year-old male with past medical history of diabetes mellitus, coronary artery disease, hypertension, hypercholesterolemia, atrial fibrillation, COPD, renal insufficiency and chronic kidney disease last seen 05/[address] Stewart coming in for preoperative visit.? Patient is scheduled to have ectropion eyelid repair 07/11/[address] Gutierrez. HTN: Blood pressure mildly elevated today normalized once retaken. Presently on amlodipine 10, losartan 25, metoprolol 50 mg twice daily. Afib: Currently on rate control with metoprolol and on anticoagulation with warfarin. Previous history of HI and diabetes mellitus. No history of CHF or CVA. The surgery will be performed under local anesthesia and conscious sedation. 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 Mother No problems noted. Social History Household Members: Spouse Housing: House Do you presently have visiting nurse or other home services: No Alcohol intake: never Patient Tobacco Use Status: Former Tobacco user Tobacco use type: Cigarette Years Smoked: quit 1987 e-Cigarette/Vaping Use: Never Used Second Hand Smoke Exposure: Yes service: No Current occupational status: retired Cognitive needs: Yes (cane/walker/wheelchair) Hearing needs: Yes Vision needs: Yes (Glasses) Questionnaire Thrive Questionnaire Date Thrive assessed: 05/17/24 ANDREY-7 AMB Questionnaire ANDREY-7 Date ANDREY - 7 assessed: 05/17/24 Source: Developed by Drs. Omega Negron, Shannan Couch, Armond Ceballos and colleagues, with an educational klaudia from [employer]. Review of Systems Const Denies body aches, Denies chills, Denies fever(s), Denies headache(s) and Denies poor appetite Eyes Reports no additional complaints ENT Denies dysphagia, Denies dizziness, Denies headache(s) and Denies odynophagia Card Denies chest pain, Denies syncope, Denies edema, Denies irregular heart rhythm, Denies lightheadedness, Denies dyspnea and Reports dyspnea on exertion Resp Denies cough, Denies dyspnea and Reports dyspnea on exertion GI Denies abdominal pain, Denies dysphagia, Denies diarrhea, Denies nausea, Denies odynophagia and Denies vomiting Reports no additional complaints Musc Reports abnormal gait (w/ walker) Skin/Breast Reports system reviewed and no additional complaints, except as documented Neuro Reports abnormal gait (w/ walker), Denies dizziness, Denies syncope and Denies headache(s) Psych Reports no additional complaints Physical exam (Primary Care) Vital Signs: Last Vital Signs Temp 97.5 F 06/20/24 14:06 Pulse 61 06/20/24 14:06 BP 140/70 H 06/20/24 14:06 Pulse Ox 97 06/20/24 14:06 Oxygen Delivery Method Room Air 06/20/24 14:06 BMI result Body Mass Index 25.0 Tobacco/Smoking Status: Tobacco use Status Tobacco use date assessed 06/20/24 06/20/24 14:12 Patient Tobacco Use Status Former Tobacco user 06/20/24 14:12 Tobacco use type Cigarette 06/20/24 14:12 e-Cigarette/Vaping Use Never Used 06/20/24 14:12 Thrive Assessment: Date of Thrive Assessment Date Thrive assessed 05/17/24 06/20/24 14:12 Const General: cooperative, healthy appearing, comfortable and no acute distress Orientation/consciousness: patient oriented x3 HENMT Head: Yes normocephalic Ears: hearing grossly normal bilaterally General nose exam: Normal external nose present Eyes General: appearance normal, both eyes and all related structures Conjunctivae: conjunctivae normal Neck Neck: Yes full ROM and Yes no lymphadenopathy Resp Effort & Inspection: normal respiratory effort Auscultation: clear to auscultation bilaterally, no crackles, no rales, no rhonchi and no wheezes Cardio Rate: regular rate Rhythm: regular rhythm Skin General skin exam: no rashes or lesions noted Neuro General: patient oriented x3 Gait exam (Neuro): Normal gait present Extrem General: Yes normal to inspection, Yes full ROM and No edema Psych Affect: normal affect Attitude: cooperative Insight: Good insight present (Psych) Judgement: Good judgement present (Psych) Coding Level of Care Code Est Pt Level 3 (81288) Diagnoses Pre-op exam Z01.818 Assessment & Plan Assessment & Plan (1) Pre-op exam: Code(s): Z01.818 - Encounter for other preprocedural examination Category: Medical Plan: Regarding preop clearance, the patient is at moderate risk for proposed surgery due to age and comorbidities. Reviewed with the patient that no surgery is completely free of risk and that this examination is to assist the surgeon in reviewing informed consent. We did discuss at length bridging warfarin with heparin and patient will need to discontinue EKG and blood work ordered plan to provide clearance after this has been evaluated. Plan This note was constructed using voice recognition software. While every effort has been made to ensure accuracy and special effects technician, still areas may have been included sometimes these areas may affect the content or meeting of the given symptoms. Total time spent caring for the patient today was 20 minutes. This includes time spent before the visit reviewing the chart, time spent during the visit, and time spent after the visit and documentation. Orders: Orders Complete Blood Count Auto Diff 06/20/24 Z00.00 - Encounter for general adult medical examination without abnormal findings ECG 12 lead EKG 06/20/24 I48.0 - Paroxysmal atrial fibrillation, Z01.818 - Encounter for other preprocedural examination Prothrombin Time INR 06/20/24 I48.0 - Paroxysmal atrial fibrillation Comprehensive Met. Panel 06/20/24 Z00.00 - Encounter for general adult medical examination without abnormal findings Prothrombin Time INR 2 Weeks I48.0 - Paroxysmal atrial fibrillation Medications: Refilled albuterol sulfate 90 mcg/actuation 2 puffs inhalation Q4H PRN 8.5 grams 1RF shortness of breath or wheezing J43.9 - Emphysema, unspecified Discontinued tramadol Discontinued Reason: Patient no longer taking 50 mg PO TID 30 days PRN 90 tabs 0RF pain B02.9 - Zoster without complications, M17.9 - Osteoarthritis of knee, unspecified
[2024-06-20 14:06] VITALS: BP 140/70; PULSE 61; TEMP 36.4; O2SAT 97; BMI 25.0
--- OUTSIDE RECORDS SUMMARY | 2024-06-20 16:45 | XMS_ITS | Patient Health Record ---
Author Organization [facility] Address [address] [place] [address] Care Team Providers Care Delicate Fabrics Presser Name Role Phone Flakita Stewart Primary Care Provider Unavailabl e Black, Stephanie Unavailable [phone] Allergies Allergen (clinical drug ingredient) Drug/Non Drug [...] Polyneuropathy due to type 2 diabetes mellitus (688810594) Type 2 diabetes mellitus with diabetic polyneuropathy (E11.42) Active confirmed Problem Ulcer of toe of right foot (disorder) (768068563047310 01) Skin ulcer of toe of right foot, limited to breakdown of skin (L97.511) Active confirmed Problem 983646521 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) Active confirmed Problem Ulcer of toe of left foot (disorder) (486932044649359 02) Skin ulcer of toe of left [...] Ordered Date Performed Result Body Sit e 32303-WVXIMRT NAIL, 1-5 09/03/2023 N/A 51801-NSZY SKIN LESIONS, 2 TO 4 09/03/2023 N/A 38178-RKKRLBT NAIL, 1-5 02/15/2024 N/A 47282-MRPS SKIN LESIONS, 2 TO 4 02/15/2024 N/A Encounters Encounter Location Date Provider Diagnosis [facility] [address] 09/03/2023 Stephanie Black Tinea unguium B35.1 and Type 2 diabetes mellitus with diabetic polyneuropathy E11.[address] [address] 02/15/2024 Stephanie Black Tinea unguium B35.1 and [...] Treatment Pending Test Test Name Order Date 19271-ZBCJMHN NAIL, 6 OR MORE 06/14/2020 27459-DEMXRGJ NAIL, 6 OR MORE 12/31/2020 86119-MJASNQP NAIL, 1-5 09/13/2020 26758-MHUVQXF NAIL, -5 01/23/2020 05670-ICJXKCE NAIL, -5 04/15/2021 42769-TAGBASV NAIL, -5 07/15/2021 29870-SXIJWSW NAIL, -5 10/14/2021 75667-YACPNTC NAIL, 1-5 01/23/2022 66202-CDFDEZH NAIL, 1-5 04/28/2022 54695-JZCZRIV NAIL, 1-5 07/28/2022 26922-EOWATKG NAIL, 1-5 11/10/2022 70699-ITNGBSS NAIL, 1-5 02/16/2023 05257-XVFSAGZ NAIL, 1-5 05/21/2023 59722-WYUXHSR NAIL, 1-5 09/03/2023 22283-NCXLTKW NAIL, 1-5 02/15/2024 81848-Gqqnjdah Plate 02/16/2023 30593- Debride <25 sq cm 05/21/2023 56211-TPEB SKIN LESIONS, 2 TO 4 05/21/19 24 19438-CATO SKIN LESIONS, 2 TO 4 09/03/19 24 80037-WHTV SKIN LESIONS, 2 TO 4 02/15/20 24 54988-KZVU SKIN LESIONS, 2 TO 4 01/23/20 20 75606-XXUC SKIN LESIONS, 2 TO 4 02/17/20 23 90228-MEWN SKIN LESIONS, 2 TO 4 11/11/19 23 75621-TUIQ SKIN LESIONS, 2 TO 4 07/29/19 23 60440-MERD SKIN LESIONS, 2 TO 4 04/28/19 23 81716-FLHD SKIN LESIONS, 2 TO 4 01/24/20 22 22872-YBCF SKIN LESIONS, 2 TO 4 10/15/19 22 76183-LZYM SKIN LESIONS, 2 TO 4 07/16/19 22 38716-EGXA SKIN LESIONS, 2 TO 4 06/15/19 21 54533-SFJG SKIN LESIONS, 2 TO 4 09/14/19 21 38898-PMLN SKIN LESIONS, 2 TO 4 01/01/20 21 89722-HVBJ SKIN LESIONS, 2 TO 4 04/15/19 22 HEMOGLOBIN A1C (GLYCOHEMOGLOBIN) 020 Next Appt Details Provider Name:Stephanie Bedoya , 08/15/2024 11:00:00 AM, [address] [facility], [place], [address], Insurance Providers Payer Name Payer Address Payer Phone Subscriber Number Group Number Insured Name Patient Relationship to Insured Coverage Start Date Coverage End Date Medicare National [facility] [address] [place] [address] [id number] Florentino Bean Self - patient is the insured [facility] [address] [place] [address] [phone] [id number] Florentino Bean Self - patient is the insured 0 Medical (General) History Medical History History ICD Code CAD (Cholesterol) Cancer Cataracts Diabetic Gout Heart disease High blood pressure Lung disease Poor circulation Psoriasis Warts Measles Chicken pox Vascular grafts Transfusions Surgical History Surgery Date(Month/Year) right above the knee amputation 2004 parotidectomy 05/30/2015 Hospitalization History Reason Date(Month/Year) [facility]- Covid-19 06/06 [facility] - Knee Amputation 200 4
--- OUTSIDE RECORDS SUMMARY | 2024-06-20 16:45 | XMS_ITS ---
[facility] Address [address] [place] [address] Care Team Providers Care Human Resources Administrator Name Role Phone Flakita Stewart Primary Care Provider Stephanie Pagan [phone] John Encounters Encounter Location Date Provider Diagnosis [address] [address] 12/14/2023 Stephanie Bedoya Plan Of Treatment Next Appt Details Provider Name:Stephanie Miller Bedoya , 08/15/2024 11:00:00 AM, [address] [place] [address], [address], Progress Notes * Florentino BEAN RDOB: (88 yo M)Acc No.[id number]:12/14/2023 Progress Note Patient:?Florentino BEAN Provider:?Stephanie Bedoya DPM :1935???Age:88 Y???Sex:Male Darryl e:12/14/2023 Address:[address] [place] [address] Pcp:Flakita Stewart Subjective: * Chief Complaints: * [...] Bedoya DPM Date:?2023 Generated for Jessie chapa/Abilio/Gin on:?06/20/2024 04:44 PM EDT
--- OUTSIDE RECORDS SUMMARY | 2024-06-20 16:45 | XMS_ITS ---
Author Organization [facility] Address [address] [place] [address] Care Team Providers Care Line Repairer Tower Name Role Phone Flakita Stewart Primary Care Provider Unavailabl e Black, Stephanie Unavailable [phone] Allergies Allergen (clinical drug ingredient) Drug/Non Drug [...] Ordered Date Performed Result Body Sit e 50463-PXGBRVW NAIL, 1-5 09/03/2023 N/A 51530-VYPH SKIN LESIONS, 2 TO 4 09/03/2023 N/A Encounters Encounter Location Date Provider Diagnosis [facility] [address] [address] 09/03/2023 Stephanie Bedoya Tinea unguium B35.1 and Type 2 diabetes mellitus with diabetic polyneuropathy E11.42 Assessments Encounter Date Diagnosis (ICD Code) Assessment Notes Treatment Notes Treatment Clinical Notes Section Notes 09/03/2023 Tinea unguium (ICD-10 - B35.1) 09/03/2023 Type 2 diabetes mellitus with diabetic polyneuropathy (ICD-10 - E11.42) Plan Of Treatment Pending Test Test Name Order Date 78227-ZANRPGS NAIL, 1-5 09/03/2023 52329-WZYV SKIN LESIONS, 2 TO 4 09/03/19 24 Next Appt Details Follow Up: prn, Reason: Provider Name:Stephanie Miller Aureliano , 08/15/2024 11:00:00 AM, [address] [place] [address] [place], [address], Procedure Notes * Category Sub-Category Detail Notes Keratoma Treatment Parring or Cutting o f Benign Hyperkeratotic Lesion(s) 26483 (2-4 Lesions) - The Benign hyperkeratotic lesions, [...] as necessary. Patient chooses, no pharmaceutical tx (78709) Progress Notes * Florentino BEAN RDOB: 8 (87 yo M)Acc No.[id number]:09/03/2023 Progress Note Patient:?Florentino Bean R Provider:?Stephanie Bedoya DPM :1935???Age:87 Y???Sex:Male Darryl e:09/03/2023 Address:[address] [place], [place] [id number] Pcp:Flakita Stewart Subjective: * Chief Complaints: * [...] E11.42 (Primary)? Plan: * Treatment: 2.?Tinea unguium?Procedure: 93940-WEIYLAE NAIL, 1-5 * Procedures:?Debride Nails 1-5:?Procedure:?Nail debridement performed extensively to reduce/remove overall nail length and girth, subungual debris, and necrotic tissue, by manual and electrical means by use of a nail nipper and/or dremel, to more viable healthy nail plate or bed tissue 1-5. Silver nitrate used for any petechial bleeding as necessary. Patient chooses, no pharmaceutical tx (94090).?Keratoma Treatment:?Parring or Cutting of Benign Hyperkeratotic Lesion(s)?65499 (2-4 Lesions) - The Benign hyperkeratotic lesions, as described above were pared, and/or cut utilizing a sterile #15 blade, tissue nippers, and/or dremel.? * Procedure Codes:?48718 DEBRI DE NAIL, 1-5, Modifiers: Q7 85154 TRIM SKIN LESIONS, 2 TO 4, Modifiers: Q7 * Follow Up:?prn * Images: * Sign off status: Completed true * Provider:?Stephanie Bedoya DPM Date:?2023 Generated for Jessie chapa/Abilio/Gin on:?06/20/2024 04:45 PM EDT History and Physical Notes * [...]
--- OUTSIDE RECORDS SUMMARY | 2024-06-20 16:45 | XMS_ITS | Data Portability ---
Author Organization [place] - [facility] Formerly [facility], Allergy Address [address] [place] [id number] Assessment Encounter Date Assessment Date Assessment LastModified [...] Details Recorded Time Weakness of face muscles [id number] Active 2018 sac upper branches facial nerve during parotid resection 2015 MAHAD CONLEY MD [address] [place] [address], [place], [phone] [facility] [place] [facility] Former[facility] 4 10:09:47 History of malignant neoplasm of digestive organ [id number] 761630 Active 2015 Personal history of malignant neoplasm of other digestive organs; Note: Changed from C07 to Z85.09 (03/21/2019 12:19 PM) , Changed from R22.0 to R22.1 ( 6 8:48 AM) , Changed from R22.1 to C07 ( 6 8:49 AM) , Date Diagnosed : 04/26/2015 10:05 AM (R22.0) Not Available [facility] 4 03:22:12 Postopera tive follow-up visit Active 2015 Post op; Note: Date Diagnosed : 06/01/2015 11:22 AM (V67.00) Not Available [facility] 4 03:22:12 Follow-up visit Active 2019 Encounter for follow-up examinati on after completed treatment for malignant neoplasm; Note: Date Diagnosed : 09/13/2019 4:00 PM (Z08) Encount er for follow-up examinati on after completed treatment for condition s other than malignant neoplasm; Note: Date Diagnosed : 06/01/2015 2:15 PM (Z09) ; Start Date : 6 Not Available [facility] 4 03:22:12 History of malignant neoplasm of parotid gland [id number] 9102 Active 2023 Primary tumor location: right parotid SCCA, 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 Medical Equipment None Reported. Allergies Allergen ID Allergen Name Allergen Category Reaction Reaction Severity Criticality Documentation Date Start Date Code Code System Note Provider Name and Address Organization Details Recorded Time 369013 lisinopri l medicatio n other Not available Not available 07/28/2023 82894 RxNorm React ion: unkno wn, unspe cifie d;; Not Available [facility] 4 01:24:44 Medications Name Sig Start Date [...] mg capsule 03/21 completed Medicati on ID: [id number] D uration Value: 5 Reason: () Brand Name: doxycycl ine hyclate Send Method: E-Prescr ibed Sub s Allowed: subs OK Speci al Instruct ion: TAKE ONE CAPSULE BY MOUTH TWICE A DAY FOR 5 DAYS Med [facility]: doxycycl ine hyclate Not Available Not Available Not Available FreeStyle Lancets 28 gauge TEST ONCE A DAY active Not Available Not Available No t Available terazosin 1 mg capsule 03/17 completed Medicati on ID: [id number] D uration Value: 90 Brand Name: terazosi [...] 500 mg capsule active Medicati on ID: [id number] B rand Name: cephalex in Send Method: [...] topical ointment 03/21 completed Medicati on ID: [id number] D uration Value: 7 Reason: () Brand [...] by mouth 03/21 completed Medicati on ID: [id number] P rescribe d By Name: Andi Travis nd Name: Percocet Send Method: E-Prescr ibed Sub s Allowed: subs OK Medic ationGen ericName : Percocet Not Available Not Available Not Available ketoconaz ole 2 % topical cream 03/17 completed Medicati on ID: [id number] D uration Value: 15 Brand Name: ketocona [...] eye oint 03/21 completed Medicati on ID: [id number] D uration Value: 7 Reason: () Brand Name: neomycin -polymyx in B-dexame th Send Method: E-Prescr ibed Sub s Allowed: subs OK Speci al Instruct ion: APPLY 1/4 INCH TO AFFECTED EYELID AT BEDTIME Medicati onGeneri cName: neomycin -polymyx in B-dexame th Not Available Not Available Not Available metoprolo l tartrate 25 mg tablet 03/17 completed Medicati on ID: [id number] D uration Value: 90 Brand Name: metoprol ol tartrate Send Method: E-Prescr ibed Sub s Allowed: subs OK Speci al Instruct ion: 8-15 TAKE 1 TABLET TWICE DAILY ORALLY 90 Medic ationGen ericName : metoprol ol tartrate Not Available Not Available Not Available Spiriva with HandiHale r 18 mcg and inhalatio n capsules 03/17 completed Medicati on ID: [id number] D uration Value: 90 Brand Name: Spiriva [...] Updated DateTime 03/15/2024 182.88 cm 23.3 kg/m2 08867.89 g Nazanin Davis [place] - [facility] 03/15/2024 13:11:30 Social History None recorded. Functional Status None recorded. Mental Status None recorded. Family History Nothing Reported. Medical History No medical history recorded. Past Encounters Encounter ID Performer Location Encounter Start Date Encounter Closed Date Diagnosis/Indication Diagnosis SNOMED-CT Code Diagnosis ICD10 Code Diagnosis Note [id number] MAHAD CONLEY MD [facility] [address] [address] 03/15/2024 12:48:06 03/15/2024 13:31:30 History of malignant neoplasm of parotid gland [id number] 87364 Z85.818 Weakness o f face muscles 65328880 R29.810 Health Concerns Section Related Observation LastModified by Organization Shelly cortes LastModified Time None Recorded Concern Status LastModified by Organization Details LastModified Time None Recorded Advance Directives Directive None Recorded Payers Encounter Date Sequence Insurance Name Policy Number Policy [place] Covered Member ID [place] Member ID Guarantor Name 03/15/2024 2 [facility] [id number] Florentino Heath [place] [id number] Florentino Bean 03/15/2024 1 [place] [employer] Florentino Bean [id number] Florentino Bean Notes Date Note Type Note Provider Name and Address Organization Details Recorded Time 03/15/2024 text/html Primary tumor location: right parotid SCCA, metastatic from right presybeterian skinTreatment: right parotid neck dissection, sac upper branches facialDate of treatment completion:Oncology team: Barry Conley/Dr Alvarez no health changeswas offered left eye repair of ectropion - did not pursue previously but interested now MAHAD CONLEY MD [address] [place] [address], [place], [address], [facility] - [facility] 03/15/2024 13:28:40
--- OUTSIDE RECORDS SUMMARY | 2024-06-20 16:45 | XMS_ITS ---
[facility] Address [address] [place] [address] Care Team Providers Care Micro Paleontologist Name Role Phone Flakita Stewart Primary Care Provider Unavailabl e Black, Stephanie Unavailable [phone] Allergies Allergen (clinical drug ingredient) Drug/Non Drug [...] Ordered Date Performed Result Body Sit e 43355-QQVYNVK NAIL, 1-5 02/15/2024 N/A 76095-FEFM SKIN LESIONS, 2 TO 4 02/15/2024 N/A Encounters Encounter Location Date Provider Diagnosis [facility] [address] [address] 02/15/2024 Stephanie Bedoya Tinea unguium B35.1 and Type 2 diabetes mellitus with diabetic polyneuropathy E11.42 Assessments Encounter Date Diagnosis (ICD Code) Assessment Notes Treatment Notes Treatment Clinical Notes Section Notes 02/15/2024 Tinea unguium (ICD-10 - B35.1) 02/15/2024 Type 2 diabetes mellitus with diabetic polyneuropathy (ICD-10 - E11.42) Plan Of Treatment Pending Test Test Name Order Date 84700-IGRCVJB NAIL, 1-5 02/15/2024 33022-LIXM SKIN LESIONS, 2 TO 4 02/15/20 24 Next Appt Details Follow Up: prn, Reason: Provider Name:Stephanie Bedoya , 08/15/2024 11:00:00 AM, [address] [place] [address], [phone], Procedure Notes * Category Sub-Category Detail Notes Keratoma Treatment Parring or Cutting o f Benign Hyperkeratotic Lesion(s) (-56) 2-4 Lesions - The Benign hyperkeratotic lesions, (3) in total, locations as stated and described in exam, were pared, and/or cut utilizing a sterile 15 blade, tissue nippers, and/or power dremel instrumentation - 34833 Debride Nails 1-5 Procedure: Performance of this nail treatment by a nonprofessional would put this patients foot and overall health at risk. Therefore, debridement to affected nail(s), as described in exam, was performed extensively to reduce/remove overall nail length, girth, thickness, subungual debris, and necrotic tissue, by manual and/or electrical means through the use of a nail nipper and/or dremel-type drier and grinder tender, to a more viable healthy nail plate [...] necessary to maintain effective symptomatic relief - 51649 Progress Notes * Florentino BEAN RDOB: [birth year] (88 yo M)Acc No.[id number]:02/15/2024 Progress Note Patient:?Florentino BEAN Provider:?Stephanie Bedoya DPM :1935???Age:88 Y???Sex:Male Darryl e:02/15/2024 Address:[address] [place], [place] [id number] Pcp:Flakita Stewart Subjective: * Chief Complaints: * [...] E11.42 (Primary)??? Plan: * Treatment: 2.?Tinea unguium?Procedure: 98058-MEGQDEK NAIL, 1-5 * Procedures:?Debride Nails 1-5:?Procedure:?Performance of this nail treatment by a nonprofessional would put this patients foot and overall health at risk. Therefore, debridement to affected nail(s), as described in exam, was performed extensively to reduce/remove overall nail length, girth, thickness, subungual debris, and necrotic tissue, by manual and/or electrical means through the use of a nail nipper and/or dremel-type drier and grinder tender, to a more viable healthy nail plate [...] necessary to maintain effective symptomatic relief - 93363.?Keratoma Treatment:?Parring or Cutting of Benign Hyperkeratotic Lesion(s)?(-56) 2-4 Lesions - The Benign hyperkeratotic lesions, (3) in total, locations as stated and described in exam, were pared, and/or cut utilizing a sterile 15 blade, tissue nippers, and/or power dremel instrumentation - 55924.? * Procedure Codes:?55953 DEBRI DE NAIL, 1-5, Modifiers: Q7 56484 TRIM SKIN LESIONS, 2 TO 4, Modifiers: Q7 * Follow Up:?prn * Images: * Sign off status: Completed true * Provider:?Stephanie Bedoya DPM Date:?2023 Generated for Jessie chapa/Abilio/eTransmitting on:?06/20/2024 04:45 PM EDT History and Physical [...]
== END 2024-06-20 14:57 | disposition home or self-care (01) ==
LOC: HO.HMCH 13:58
PROVIDERS: PCP Internal Medicine
DX: Z01.818 Encounter for other preprocedural examination (principal)

== ENCOUNTER → 2024-06-20 13:58 | Outpatient (BNVA) | payer MEDICARE, OTHER, SELFPAY | PROVIDERS: PCP Internal Medicine | DX: Z13.89 Encounter for screening for other disorder (principal) | CPT/HCPCS: 99212 ==

== ENCOUNTER 2024-06-21 12:28 | Inpatient (IN) | payer MEDICARE, OTHER, SELFPAY ==
[2024-06-21] VITALS (12 sets, daily range): BP systolic 102–135; BP diastolic 35–60; PULSE 68–84; RESP 18–28; TEMP 36.4–36.6; O2SAT 90–98; BMI 23.9
--- NOTE | ~2024-06-21 | XR_ITS ---
EXAMINATION: XR CHEST CLINICAL INFORMATION: sob COMPARISON: 06/21/2024. TECHNIQUE: Frontal view of the chest was obtained. FINDINGS: The cardiac, hilar, and mediastinal contours are normal. Aortic mural calcifications. Lungs demonstrate increased patchy opacity in the right lower lung, suspicious for pneumonia. This is new from recent prior. No pneumothorax or effusion. No focal osseous or soft tissue abnormality. XR/XR chest 1V IMPRESSION: Increased patchy opacity in the right lower lung region suspicious for developing pneumonia. Electronically signed by: Venu Hair MD 06/23/2024 09:40 AM EDT
--- NOTE | ~2024-06-21 | XR_ITS ---
EXAMINATION: XR CHEST CLINICAL INFORMATION: cough, dyspnea COMPARISON: 07/04/2023. TECHNIQUE: Frontal view of the chest was obtained. FINDINGS: The cardiac, hilar, and mediastinal contours are normal. The lungs are clear bilaterally. No pneumothorax or effusion. No focal osseous or soft tissue abnormality. XR/XR chest 1V IMPRESSION: No active pulmonary disease. Electronically signed by: Venu Hair MD 06/21/2024 01:46 PM EDT
--- NOTE | 2024-06-21 12:47 | ECG_ITS ---
Test Reason : SOB Blood Pressure : */* mmHG Vent. Rate : 71 BPM Atrial Rate : 71 BPM P-R Int : 210 ms QRS Dur : 154 ms QT Int : 424 ms P-R-T Axes : 56 52 52 degrees QTcB Int : 460 ms Sinus rhythm with 1st degree A-V block Non-specific intra-ventricular conduction block Abnormal ECG When compared with ECG of 04-Sep-2023 20:52, Non-specific intra-ventricular conduction block has replaced Right bundle branch block Referred By: Yolande Dumont Electronically Signed By: Armando Batista
[2024-06-21] MEDS: Albuterol Sulfate 5 MG, Albuterol/Iprat 2.5/0.5MG 3 ML 3 ML INHALE (13:13)
[2024-06-21 13:34] LABS: VBG Base Excess -8.9 mmol/L; VBG HCO3 18 mmol/L (22-26); VBG pCO2 44 mmHg; VBG pH 7.21 (7.32-7.43); VBG pO2 29 mmHg
[2024-06-21 13:34] LABS: Venous Blood Gas Refer to POC result
--- NOTE | 2024-06-21 13:35 | ED_ITS ---
HPI - SOB/Dyspnea General Chief Complaint: General Medical Stated Complaint: WEAK,NON RAD CP,SOB,DUONEB GIVEN PER EMS Time Seen by Provider: 06/21/24 12:45 Source: patient, EMS and old records reviewed Mode of arrival: EMS Limitations: other (poor historian) History of Present Illness ED Provider: TABATHA HPI Narrative: 88 yo male with CKD, COPD not on home O2, PAF on coumadin, aortic stenosis, HTN, anemia, CAD, HLD here with c/o congested cough, chest discomfort, eye drainage, difficulty breathing x 3 days that was much worse today. He notes no new swelling. He has not had a fever n/v/d. He states his was also sick. He feels weak and tired. EMS gave duoneb en route which was helpful. He has no pain now. He states she can't walk due to his breathing. No travel or procedure. MD elicited complaint: shortness of breath and cough Pertinent past history: COPD Onset (ago): day(s) (3) Context: recent illness and occurred during exertion Timing: progressively worsening Severity: moderate Exacerbating factors: lying flat, exertion and coughing Relieving factors: oxygen, rest and bronchodilators Known history of: COPD Associated symptoms: chest pain, cough and sputum production Treatment prior to arrival: bronchodilator Related Data Home Medications ?Medication ?Instructions ?Recorded ?Confirmed cholecalciferol (vitamin D3) 50 50 mcg PO DAILY 03/19/20 06/20/24 mcg (2,000 unit) capsule lancets 28 gauge #100 ea 04/18/20 06/20/24 docusate sodium 100 mg capsule 100 mg PO BEDTIME 10/28/23 06/20/24 (Colace) Previous Rx's ?Medication ?Instructions ?Recorded umeclidinium 62.5 mcg/actuation 1 inh PO BEDTIME #90 grams 07/18/23 blister powder for inhalation (Incruse Ellipta) MANUAL WHEELCHAIR #1 ea 08/25/23 blood sugar diagnostic (FreeStyle #100 ea 11/04/23 Lite Strips) blood-glucose meter (FreeStyle #1 ea 11/04/23 Lite Meter kit) lancets 28 gauge (FreeStyle #100 ea 11/04/23 Lancets) tamsulosin 0.4 mg capsule 0.4 mg PO BEDTIME 90 days #90 caps 12/04/23 fluticasone 500 mcg-salmeterol 50 1 inh inhalation BID #60 ea 01/15/24 mcg/dose blistr powdr for inhalation (Aaronuriahmadai Diorub) amlodipine 10 mg tablet 10 mg PO DAILY 90 days #90 tabs 02/08/24 atorvastatin 40 mg tablet 40 mg PO DAILY #90 tabs 02/08/24 metoprolol tartrate 50 mg tablet 50 mg PO BID #180 tabs 02/08/24 losartan 25 mg tablet 25 mg PO DAILY #90 tabs 02/15/24 warfarin 5 mg tablet 2.5 mg PO .COMPLEX #30 tabs 04/26/24 dapagliflozin propanediol 5 mg 5 mg PO DAILY #30 tabs 06/15/24 tablet (Farxiga) albuterol sulfate 90 mcg/actuation 2 puff inhalation Q4H PRN 06/20/24 aerosol inhaler shortness of breath or wheezing #8.5 grams Allergies Allergy/AdvReac Type Severity Reaction Status Date / Time lisinopril [LISINOPRIL] Allergy Unknown HIVES Verified 06/21/24 12:55 Review of Systems 2 Review of Systems: Constitutional : No Weight loss, No Fever, No Chills ENT/Mouth : No sore throat, No Rhinorrhea Eyes: No Eye Pain, No Swelling, pos drainage Cardiovascular : pos Chest Pain, pos SOB, pos Dyspnea on Exertion, No Orthopnea, No Edema, No Palpitations Respiratory : pos Cough, No Sputum Gastrointestinal : no Nausea, No Vomiting, No Diarrhea, No abdominal Pain, No Hematochezia, No Melena Genitourinary : No Dysuria, No Urinary Frequency Musculoskeletal : No joint pain, No Myalgias, No Joint Swelling Skin : No Skin Lesions, No rash Neuro : pos Weakness, No Numbness, No Dizziness, No Headache All other systems reviewed and are negative [facility] Past Medical History Attestation statement: The following information was validated with the patient. 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 Mother No problems noted. Social History Social History Household Members: Spouse Housing: House Do you presently have visiting nurse or other home services: No Alcohol intake: never Patient Tobacco Use Status: Former Tobacco user Tobacco use type: Cigarette Years Smoked: quit 1988 Smoked in Last 30 Days: No e-Cigarette/Vaping Use: Never Used Second Hand Smoke Exposure: Yes Use of substances other than those prescribed or required for medical reasons: No Advance Directives: No Advance Directives Information Provided: Yes Do you have a plan to hurt others: No Plan service: No Current occupational status: retired Cognitive needs: Yes (cane/walker/wheelchair) Hearing needs: Yes Vision needs: Yes (Glasses) Physical Exam 2 Vital Signs: Vital Signs: Last Vital Signs Temp 97.7 F 06/21/24 15:25 Pulse 79 06/21/24 15:25 Resp 27 H 06/21/24 15:25 BP 112/43 L 06/21/24 15:25 Pulse Ox 94 06/21/24 15:25 O2 Del Method Room Air 06/21/24 15:25 BMI result Body Mass Index 23.9 Appearance: Alert. Oriented X3. Mild acute distress. Poor historian Eyes: Pupils equal, round and reactive to light. Has yellow drainage and hyperemia of the conjunctiva ENT: Pharynx normal. Neck: Normal inspection. Neck supple. CVS: Normal heart rate and rhythm. Pulses normal. Respiratory: Mild respiratory distress tachypnea labored Breath sounds very tight with wheezing and diminished Abdomen: Soft and nontender. Skin: Skin warm and dry. Normal skin color. Normal skin turgor. Extremities: 2+ pitting L lower extremity edema. No calf ttp R AKA Neuro: Oriented X 3. No motor deficit. No sensory deficit. CN2-12 intact Course Course Course Narrative: after more history and discussion with patient sepsis alert started at 147pm infection suspected 147pm Reevaluation(s) Reevaluation #1: 216pm difficult IV stick delay in labs and IV antibiotics Reevaluation #2: trop flat will admit Medications Administered Generic Name Dose Route Start Last Admin Trade Name Freq PRN Reason Stop Dose Admin Calcium Gluconate 2 gm in 100 mls @ 50 mls/hr 06/21/24 13:55 06/21/24 14:30 Calcium Gluconate IV 06/21/24 15:54 50 mls/hr ONCE ONE Administration Discontinued Medications Generic Name Dose Route Start Last Admin Trade Name Freq PRN Reason Stop Dose Admin Ceftriaxone Sodium 1 gm 06/21/24 12:57 06/21/24 14:22 Ceftriaxone Sodium 1 Gm Vial IVPUSH 06/21/24 12:58 1 gm ONCE ONE Administration Albuterol Sulfate 5 mg/ 0 mg 06/21/24 13:12 06/21/24 13:13 Albuterol/Ipratropium 3 ml INHALE 06/21/24 13:13 1 each ONCE ONE Administration Erythromycin 1 cm 06/21/24 13:35 06/21/24 14:29 Erythromycin Base 0.5% Oph Oin 1 Gm Tube EYE-BOTH 06/21/24 13:36 1 cm ONCE ONE Administration Furosemide 40 mg 06/21/24 14:02 06/21/24 14:28 Furosemide 40 Mg/4 Ml Vial IVPUSH 06/21/24 14:03 40 mg STAT STA Administration Protocol Sodium Chloride 250 mls @ 250 mls/hr 06/21/24 14:07 06/21/24 15:19 Ns IV 06/21/24 15:06 Infused .Q1H ONE Infusion Methylprednisolone Sodium Succinate 60 mg 06/21/24 12:55 06/21/24 14:22 Methylprednisolone Sod Succ 125 Mg/2 Ml Vial IVPUSH 06/21/24 12:56 60 mg ONCE ONE Administration Sodium Zirconium Cyclosilicate 5 gm 06/21/24 13:55 06/21/24 14:30 Sodium Zirconium Cyclosilicate 5 Gm Powd.Pack PO 06/21/24 13:56 5 gm ONCE ONE Administration Medical Decision Making Medical Decision Making MDM Narrative: 88 yo male with CKD, COPD not on home O2, PAF on coumadin, aortic stenosis, HTN, anemia, CAD, HLD here with c/o URI symptoms has leg edema as well he is tight and wheezing with diminished lung sounds at this time given hx of COPD will obtain labs, cultures, lactic acid, nebs, IV steroids empiric ceftriaxone. He states his is also ill. He has no chest pain now after duoneb en route. Doubt VTE he is on coumadin and INR is therapeutic. He has metabolic acidosis as well - worsening Cr suspect given volume overload and BNP this could be related to fluid overload will give dose of IV lasix as well. He will get repeat trop as well. Viral panel ordered Differential Diagnosis Differential Diagnoses: The differential diagnosis associated with the presentation includes COPD, CHF, URI, JULIO on CKD, hypervolemia Admission/Observation Consideration of admission/observation: Escalation of care including admission/observation considered admit for diuresis, symptoms Consult Healthcare Provider Management of the patient was discussed with: Hospitalist Lab Data MDM Lab Attestation statement: I reviewed the patient's lab results. given K treated with lasix, calcium, albuterol, lokelma 06/21/24 13:14 06/21/24 13:14 Labs: Lab Results 06/21/24 06/21/24 06/21/24 Range/Units 13:14 13:28 15:21 WBC 16.2 H (4.8-10.8) X10*3/uL RBC 3.31 L (4.60-5.80) X10*6/uL Hgb 9.5 L (14.0-18.0) g/dl Hct 29.7 L (42.0-52.0) % MCV 89.7 (80.0-98.0) fL MCH 28.7 (27.0-33.0) pg MCHC 32.0 (31.0-36.0) g/dl RDW 14.5 (11.0-16.0) % Plt Count 258 (160-400) X10*3/uL MPV 10.5 (9.4-12.4) fL Immature Gran % (Auto) 0.9 H (0.0-0.4) % Neut % (Auto) 78.1 H (45-73) % Lymph % (Auto) 10.5 L (20-40) % [place] % (Auto) 10.4 (2-11) % Eos % (Auto) 0.0 (0-4) % Baso % (Auto) 0.1 (0-2) % Lymph # (Auto) 1.7 (1.2-4.9) X10*3/uL [place] # (Auto) 1.7 H (0.1-1.2) X10*3/uL Eos # (Auto) 0.0 (0.0-0.4) X10*3/uL Baso # (Auto) 0.0 (0.0-0.2) X10*3/uL Abs Immat Gran (auto) 0.14 H (0.00-0.03) X10*3/uL Absolute Neuts (auto) 12.7 H (2.0-8.3) x10*3/uL Absolute Nucleated RBC 0.000 (0.0-0.012) X10*3/uL Nucleated RBC % (auto) 0.0 (0.0-0.2) /100WBC Smear Tech's Comments VERIFIED PT 38.7 H (10.9-12.4) SEC INR 3.3 H D (0.9-1.1) VBG pH 7.21 L (7.32-7.43) VBG pCO2 44 mmHg VBG pO2 29 mmHg VBG HCO3 18 L (22-26) mmol/L VBG O2 Saturation 33.0 % VBG Base Excess -8.9 mmol/L Sodium 139 (135-145) mmol/L Potassium 5.9 H (3.3-5.1) mmol/L Chloride 116 H (96-108) mmol/L Carbon Dioxide 17 L (22-29) mmol/L Anion Gap 12 (12-20) BUN 74 H (9-16) mg/dL Creatinine 2.89 H (0.5-1.4) mg/dL Estim Creat Clear Calc 20.1 Estimated GFR 21 Random Glucose 154 H (60-115) mg/dL Lactic Acid 2.6 H* (0.5-2.0) mmol/L Calcium 9.3 D (8.4-10.2) mg/dL Magnesium 2.1 (1.6-2.6) mg/dL Total Bilirubin 0.4 (0.0-1.0) mg/dL Direct Bilirubin 0.2 (0.0-0.5) mg/dL AST 28 (5-37) U/L ALT 24 (0-40) U/L Alkaline Phosphatase 69 (39-117) U/L Troponin I High Sens 160.7 H* 149.5 H* (<3.5-35.0) ng/L B-Natriuretic Peptide 3752 H (<100) pg/mL Total Protein 6.5 (6.5-8.0) g/dL Albumin 3.4 L (3.5-5.0) g/dL Lipase 16 (8-78) U/L Influenza Type A (PCR) NEGATIVE (Negative) Influenza Type B (PCR) NEGATIVE (Negative) RSV RNA Qual (PCR) NEGATIVE (Negative) SARS-CoV-2 RNA (RT-PCR) NEGATIVE (Negative) Independent Interpretation I performed an independent interpretation of an: EKG and Plain X-Ray (no pneumonia) Interpretation: Rate: 71 Rhythm: NSR with 1st degree AVB Reading: normal Normal P waves. Normal ANA. Normal QRS complex. ST T wave : nonspecific ST T wave changes, no STEMI qTC: 460 prior studies: no acute ischemia The study has been interpreted contemporaneously by me. . Radiology Impression Discussion of test interpretation with radiology: I have reviewed the radiologist's reading. Independent Historian Clinical information obtained from an independent historian. History obtained from or confirmed by: EMS External Record Review External record reviewed: Inpatient record and Outpatient record Critical Care Time Critical Care Time Critical Care Time: Yes Total Critical Care Time: 45 Attestation: treatment of K, review of records, IV calcium I attest to this time spent taking care of the patient Discharge Plan Discharge Clinical Impression: Acute exacerbation of chronic obstructive pulmonary disease, Elevated WBC count, Acute kidney injury superimposed on chronic kidney disease, CHF (congestive heart failure), Metabolic acidosis, Acute hyperkalemia Patient Disposition: Admitted As Inpatient Print Language: Greenlandic
[2024-06-21 13:37] LABS: Basophils Percent Auto 0.1 % (0-2); Hematocrit 29.7 % (42.0-52.0); Hemoglobin 9.5 g/dl (14.0-18.0); Imm Gran Abs Auto 0.14 X10*3/uL (0.00-0.03); Imm Gran Pct Auto 0.9 % (0.0-0.4); Lymphocytes Absolute Auto 1.7 X10*3/uL (1.2-4.9); Lymphocytes Percent Auto 10.5 % (20-40); MANUAL DIFF FLAG SCAN; Mean Corpuscular Hemoglobin 28.7 pg (27.0-33.0); Mean Corpuscular Volume 89.7 fL (80.0-98.0); Mean Platelet Volume 10.5 fL (9.4-12.4); Monocytes Absolute Auto 1.7 X10*3/uL (0.1-1.2); Monocytes Percent Auto 10.4 % (2-11); Neutrophils Absolute Auto 12.7 x10*3/uL (2.0-8.3); Neutrophils Percent Auto 78.1 % (45-73); Platelet Count 258 X10*3/uL (160-400); Red Blood Count 3.31 X10*6/uL (4.60-5.80); Red Cell Distribution Width 14.5 % (11.0-16.0); SCAN SMEAR FLAG 1; White Blood Count 16.2 X10*3/uL (4.8-10.8)
[2024-06-21 13:39] LABS: INTERNATIONAL NORM RATIO 3.3 (0.9-1.1); Prothrombin Time 38.7 SEC (10.9-12.4)
[2024-06-21 13:51] LABS: Alanine Aminotransferase 24 U/L (0-40); Albumin Level 3.4 g/dL (3.5-5.0); Alkaline Phosphatase 69 U/L (39-117); Anion Gap 12 (12-20); Aspartate Amino Transferase 28 U/L (5-37); Bilirubin Direct 0.2 mg/dL (0.0-0.5); Bilirubin Total 0.4 mg/dL (0.0-1.0); Blood Urea Nitrogen 74 mg/dL (9-16); Calcium 9.3 mg/dL (8.4-10.2); Carbon Dioxide 17 mmol/L (22-29); Chloride 116 mmol/L (96-108); Creatinine Clr Calc Pharmacy 20.1; Estimated Glomerular Filt Rate 21; Glucose Random 154 mg/dL (60-115); Lipase 16 U/L (8-78); Magnesium 2.1 mg/dL (1.6-2.6); Potassium 5.9 mmol/L (3.3-5.1); Sodium 139 mmol/L (135-145); Total Protein 6.5 g/dL (6.5-8.0)
--- NOTE | 2024-06-21 13:55 | PC.NURSE ---
unable to place IV line - Elizabeth BRIGHT will attempt U/s guided
[2024-06-21 14:00] LABS: B Type Natriuretic Peptide 3752 pg/mL (<100)
[2024-06-21 14:06] LABS: SLIDE REVIEW VERIFIED
[2024-06-21 14:11] LABS: Influenza A PCR NEGATIVE (Negative); Influenza B PCR NEGATIVE (Negative); Resp Syncy Virus RNA Qual PCR NEGATIVE (Negative); SARS COV2 PCR INHOUSE NEGATIVE (Negative)
[2024-06-21 14:13] LABS: Lactic Acid 2.6 mmol/L (0.5-2.0)
[2024-06-21 14:15] LABS: Troponin-I High Sensitivity 160.7 ng/L (<3.5-35.0)
--- NOTE | 2024-06-21 14:18 | PC.NURSE ---
Primary RN attempted IV, milk handler made aware and attempted IV, was unsuccesful. US guided RN in room at this time. Informed MD of this.
[2024-06-21] MEDS: cefTRIAXone sodium 1 GM VIAL IVPUSH (14:22)
[2024-06-21] MEDS: methylPREDNISolone Sod Succ 125 MG/2 ML VIAL 60 MG IVPUSH (14:22)
[2024-06-21] MEDS: 0.9 % Sodium Chloride 250 ML IV (14:24)
[2024-06-21] MEDS: Furosemide 40 MG/4 ML VIAL IVPUSH (14:28)
[2024-06-21] MEDS: Erythromycin Base 0.5% Oph Oin 1 GM TUBE 1 CM EYE-BOTH (14:29)
[2024-06-21] MEDS: Sodium Zirconium Cyclosilicate 5 GM POWD.PACK PO (14:30)
[2024-06-21] MEDS: Calcium Gluconate/NaCl,Iso-Osm 2 GM/100 ML PLAST..BAG IV (14:30)
[2024-06-21 15:26] LABS: Reflex Lactate? Lactic Acid Added
[2024-06-21 15:49] LABS: Troponin-I High Sensitivity 149.5 ng/L (<3.5-35.0)
--- NOTE | 2024-06-21 16:10 | P.HPHOSP_ITS ---
History of Present Illness Date of Service: 06/21/24 Chief Complaint: Shortness of breath 88-year-old man with worsening shortness of breath. According to the patient he reports that this has been ongoing for many months now as he has a history of severe aortic stenosis. According to his yesterday he told him that he felt like an elephant was standing on his chest. Today she decided to bring him in as he was more short of breath and unable to ambulate. He denied recent illness, recent travel, sick contacts, nausea, vomiting, diarrhea. He reported that the pressure on his chest is weight-bearing with no other associated symptoms. His BNP was noted to be elevated at 3752, initial troponin 160.7 with repeat of 149.5, initial lactic acid 2.6, potassium 5.9, creatinine 2.89,white blood cell count of 16.2.. Chest x-ray negative for consolidation, no obvious infection. In the ER patient was given a dose of Solu-Medrol, Rocephin, albuterol, calcium gluconate, Lokelma, Lasix, 250 mL of IV fluids. Plan will be to admit patient for further management and treatment of acute heart failure with history of aortic stenosis. 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 Mother No problems noted. Surgical History Stented coronary artery History of right above knee amputation History of parotid gland excision History of eye surgery Social History Household Members: Spouse Housing: House Do you presently have visiting nurse or other home services: No Alcohol intake: never Patient Tobacco Use Status: Former Tobacco user Tobacco use type: Cigarette Years Smoked: quit 1988 Smoked in Last 30 Days: No e-Cigarette/Vaping Use: Never Used Second Hand Smoke Exposure: Yes Use of substances other than those prescribed or required for medical reasons: No Advance Directives: No Advance Directives Information Provided: Yes Do you have a plan to hurt others: No Plan service: No Current occupational status: retired Cognitive needs: Yes (cane/walker/wheelchair) Hearing needs: Yes Vision needs: Yes (Glasses) Meds Allergies Allergy/AdvReac Type Severity Reaction Status Date / Time lisinopril [LISINOPRIL] Allergy Unknown HIVES Verified 06/21/24 12:55 Active Medications: Current Medications Acetaminophen (Acetaminophen 325 Mg Tablet) 650 mg PO Q6H PRN PRN Reason: Pain, Mild 1-3,fever,headache Calcium Carbonate (Calcium Carbonate 750 Mg Tab.Chew) 750 mg PO Q4H PRN PRN Reason: Heartburn Heparin Sodium (Porcine) (Heparin Sodium,Porcine 5,000 Unit/Ml Vial) 5,000 unit SUBCUT Q12H DAVID Magnesium Hydroxide (Milk Of Magnesia 30 Ml Oral.Susp) 30 ml PO DAILY PRN PRN Reason: Constipation Melatonin (Melatonin 3 Mg Tablet) 6 mg PO BEDTIME PRN PRN Reason: Insomnia Ondansetron HCl (Ondansetron Hcl 4 Mg/2 Ml Vial) 4 mg IVPUSH Q8H PRN PRN Reason: Nausea and Vomiting Sodium Chloride (0.9 % Sodium Chloride Flush 3 Ml Syringe) 3 ml IVFLUSH QSHIFT [facility] Home Medications ?Medication ?Instructions ?Recorded ?Confirmed ?Last Taken ?Type cholecalciferol (vitamin D3) 50 50 mcg PO DAILY 03/19/20 06/20/24 Unknown History mcg (2,000 unit) capsule lancets 28 gauge #100 ea 04/18/20 06/20/24 Unknown History docusate sodium 100 mg capsule 100 mg PO BEDTIME 10/28/23 06/20/24 Unknown History (Colace) Physical Exam 2 Vital Signs and Narrative: Vital Signs: Last Vital Signs Temp 97.7 F 06/21/24 15:55 Pulse 80 06/21/24 15:55 Resp 20 06/21/24 15:55 BP 124/49 L 06/21/24 15:55 Pulse Ox 94 06/21/24 15:55 O2 Del Method Room Air 06/21/24 15:55 BMI result Body Mass Index 23.9 Appearing in no acute distress head is normocephalic atraumatic eyes pupils are PERRLA sclera is anicteric mouth throat mucous membranes are intact and moist neck is supple no lymphadenopathy, no JVD noted lung sounds are clear to auscultation heart regular rate rhythm, clear S1, S2 positive bowel sounds, abdomen is soft, nontender neuro patient is alert x3, no focal deficits Right lower extremity BKA Results Labs 06/21/24 13:14 06/21/24 13:14 Labs: Laboratory Results - last 24 hr 06/21/24 06/21/24 13:14 13:28 MCV 89.7 MCH 28.7 MCHC 32.0 RDW 14.5 Plt Count 258 MPV 10.5 Immature Gran % (Auto) 0.9 H Neut % (Auto) 78.1 H Lymph % (Auto) 10.5 L Rutherford % (Auto) 10.4 Eos % (Auto) 0.0 Baso % (Auto) 0.1 Lymph # (Auto) 1.7 Rutherford # (Auto) 1.7 H Eos # (Auto) 0.0 Baso # (Auto) 0.0 Abs Immat Gran (auto) 0.14 H Absolute Neuts (auto) 12.7 H Absolute Nucleated RBC 0.000 Nucleated RBC % (auto) 0.0 Smear Tech's Comments VERIFIED PT 38.7 H INR 3.3 H D VBG pH 7.21 L VBG pCO2 44 VBG pO2 29 VBG HCO3 18 L VBG O2 Saturation 33.0 VBG Base Excess -8.9 Anion Gap 12 Estim Creat Clear Calc 20.1 Estimated GFR 21 Random Glucose 154 H Lactic Acid 2.6 H* Calcium 9.3 D Magnesium 2.1 Total Bilirubin 0.4 Direct Bilirubin 0.2 AST 28 ALT 24 Alkaline Phosphatase 69 B-Natriuretic Peptide 3752 H Total Protein 6.5 Albumin 3.4 L Lipase 16 Influenza Type A (PCR) NEGATIVE Influenza Type B (PCR) NEGATIVE RSV RNA Qual (PCR) NEGATIVE SARS-CoV-2 RNA (RT-PCR) NEGATIVE Imaging Radiologist's Impressions: Impressions Chest X-Ray 06/21/24 12:54 IMPRESSION: No active pulmonary disease. Electronically signed by: Venu Hair MD 06/21/2024 01:46 PM EDT RP Assessment and Plan (1) CHF (congestive heart failure): Qualifiers: Heart failure chronicity: acute Heart failure type: unspecified Q ualified Code(s): I50.9 - Heart failure, unspecified Status: Acute Plan 88 year old man admitted with CHF and worsening Aortic stenosis HFpEF Monitor on telemetry follow BNP IV lasix Cardiology consultation Echocardiogram Aortic stenosis Last echo with valve area 0.78 contributing to symptoms monitor fluid intake and output cardiology consultation Leukocytosis no obvious infectious source monitor check UA follow blood cx Hyperkalemia Status post Lokelma Follow BMP JULIO on CKD4 likely from fluid overload follow BMP nephro consult Lactic acidosis ? related to CHF no obvious infectious source Acute metabolic acidosis VBG 7.21/44/29/18 History of chronic kidney disease Repeat VBG in the morning HTN stable blood pressure hold antihypertensives for now to avoid hypotension DVT prophylaxis with heparin Full code Quality Stroke Does the patient have a stroke diagnosis?: No VTE Prior VTE?: No VTE Risk Level:: Medical - moderate - high VTE Device Contraindication: Treatment Not Indicated VTE Drug Contraindication: N/A - Med Ordered
--- OUTSIDE RECORDS SUMMARY | 2024-06-21 16:49 | XMS_ITS ---
Author Organization [facility] Address [address] [place] [address] Care Team Providers Care Plastic Sewer Name Role Phone Flakita Stewart Primary Care Provider Unavailabl e Black, Stephanie Unavailable [phone] Allergies Allergen (clinical drug ingredient) Drug/Non Drug [...] Ordered Date Performed Result Body Sit e 96351-LSIKZMC NAIL, 1-5 02/15/2024 N/A 60425-DFKH SKIN LESIONS, 2 TO 4 02/15/2024 N/A Encounters Encounter Location Date Provider Diagnosis [facility] [address] [address] 02/15/2024 Stephanie Bedoya Tinea unguium B35.1 and Type 2 diabetes mellitus with diabetic polyneuropathy E11.42 Assessments Encounter Date Diagnosis (ICD Code) Assessment Notes Treatment Notes Treatment Clinical Notes Section Notes 02/15/2024 Tinea unguium (ICD-10 - B35.1) 02/15/2024 Type 2 diabetes mellitus with diabetic polyneuropathy (ICD-10 - E11.42) Plan Of Treatment Pending Test Test Name Order Date 10111-NFAOTIL NAIL, 1-5 02/15/2024 07113-UGMU SKIN LESIONS, 2 TO 4 02/15/20 24 Next Appt Details Follow Up: prn, Reason: Provider Name:Stephanie Bedoya , 08/15/2024 11:00:00 AM, [address] [place] [address], [phone], Procedure Notes * Category Sub-Category Detail Notes Keratoma Treatment Parring or Cutting o f Benign Hyperkeratotic Lesion(s) (-56) 2-4 Lesions - The Benign hyperkeratotic lesions, (3) in total, locations as stated and described in exam, were pared, and/or cut utilizing a sterile 15 blade, tissue nippers, and/or power dremel instrumentation - 15204 Debride Nails 1-5 Procedure: Performance of this nail treatment by a nonprofessional would put this patients foot and overall health at risk. Therefore, debridement to affected nail(s), as described in exam, was performed extensively to reduce/remove overall nail length, girth, thickness, subungual debris, and necrotic tissue, by manual and/or electrical means through the use of a nail nipper and/or dremel-type liquor grinder mill operator, to a more viable healthy nail plate [...] necessary to maintain effective symptomatic relief - 72035 Progress Notes * Florentino BEAN RDOB: [birth year] (88 yo M)Acc No.[id number]:02/15/2024 Progress Note Patient:?Florentino BEAN Provider:?Stephanie Bedoya DPM :1935???Age:88 Y???Sex:Male Darryl e:02/15/2024 Address:[address] [place], [place] [id number] Pcp:Flakita Stewart Subjective: * Chief Complaints: * [...] E11.42 (Primary)??? Plan: * Treatment: 2.?Tinea unguium?Procedure: 80074-FFCPHFZ NAIL, 1-5 * Procedures:?Debride Nails 1-5:?Procedure:?Performance of this nail treatment by a nonprofessional would put this patients foot and overall health at risk. Therefore, debridement to affected nail(s), as described in exam, was performed extensively to reduce/remove overall nail length, girth, thickness, subungual debris, and necrotic tissue, by manual and/or electrical means through the use of a nail nipper and/or dremel-type liquor grinder mill operator, to a more viable healthy nail plate [...] necessary to maintain effective symptomatic relief - 36614.?Keratoma Treatment:?Parring or Cutting of Benign Hyperkeratotic Lesion(s)?(-56) 2-4 Lesions - The Benign hyperkeratotic lesions, (3) in total, locations as stated and described in exam, were pared, and/or cut utilizing a sterile 15 blade, tissue nippers, and/or power dremel instrumentation - 20786.? * Procedure Codes:?58091 DEBRI DE NAIL, 1-5, Modifiers: Q7 98711 TRIM SKIN LESIONS, 2 TO 4, Modifiers: Q7 * Follow Up:?prn * Images: * Sign off status: Completed true * Provider:?Stephanie Bedoya DPM Date:?2023 Generated for Jessie chapa/Abilio/eTransmitting on:?06/21/2024 04:49 PM EDT History and Physical Notes * [...]
--- OUTSIDE RECORDS SUMMARY | 2024-06-21 16:49 | XMS_ITS | Patient Health Record ---
Author Organization [facility] Address [address] [place] [address] Care Team Providers Care Printed Circuit Boards Contact Printer Name Role Phone Flakita Stewart Primary Care Provider Unavailabl e Black, Stephanie Unavailable [phone] Allergies Allergen (clinical drug ingredient) Drug/Non Drug [...] Polyneuropathy due to type 2 diabetes mellitus (537873702) Type 2 diabetes mellitus with diabetic polyneuropathy (E11.42) Active confirmed Problem Ulcer of toe of right foot (disorder) (416697050641925 01) Skin ulcer of toe of right foot, limited to breakdown of skin (L97.511) Active confirmed Problem 131382926 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) Active confirmed Problem Ulcer of toe of left foot (disorder) (363242487054393 02) Skin ulcer of toe of left [...] Ordered Date Performed Result Body Sit e 33635-VSQZCIB NAIL, 1-5 09/03/2023 N/A 14455-CSJL SKIN LESIONS, 2 TO 4 09/03/2023 N/A 11101-KNGTLHH NAIL, 1-5 02/15/2024 N/A 76879-KUZG SKIN LESIONS, 2 TO 4 02/15/2024 N/A Encounters Encounter Location Date Provider Diagnosis [facility] [address] 09/03/2023 Stephanie Black Tinea unguium B35.1 and Type 2 diabetes mellitus with diabetic polyneuropathy E11.[address] [address] 02/15/2024 Stephanie Black Tinea unguium B35.1 and [...] Treatment Pending Test Test Name Order Date 30764-YAPBZNK NAIL, 6 OR MORE 06/14/2020 24661-ONMQAJF NAIL, 6 OR MORE 12/31/2020 26866-QFPKFYE NAIL, 1-5 09/13/2020 41732-PBWGRBR NAIL, -5 01/23/2020 22818-MZNSDYW NAIL, -5 04/15/2021 17125-OOQEDVF NAIL, -5 07/15/2021 37940-YDPHBNB NAIL, -5 10/14/2021 38416-JQLBLUE NAIL, 1-5 01/23/2022 95277-MQSIKHX NAIL, 1-5 04/28/2022 00802-ZETABFD NAIL, 1-5 07/28/2022 50232-YDLVHSV NAIL, 1-5 11/10/2022 11140-HSXYSDM NAIL, 1-5 02/16/2023 56367-TKPBXUQ NAIL, 1-5 05/21/2023 94345-QOQCCSI NAIL, 1-5 09/03/2023 15867-GBAGLSF NAIL, 1-5 02/15/2024 71640-Dgrzzhbc Plate 02/16/2023 96767- Debride <25 sq cm 05/21/2023 52110-IHHQ SKIN LESIONS, 2 TO 4 05/21/19 24 67569-NYJF SKIN LESIONS, 2 TO 4 09/03/19 24 14137-RZDA SKIN LESIONS, 2 TO 4 02/15/20 24 65115-HYVK SKIN LESIONS, 2 TO 4 01/23/20 20 28335-YVHY SKIN LESIONS, 2 TO 4 02/17/20 23 35547-PHSB SKIN LESIONS, 2 TO 4 11/11/19 23 43506-QRJJ SKIN LESIONS, 2 TO 4 07/29/19 23 57949-EHMF SKIN LESIONS, 2 TO 4 04/28/19 23 85698-LUAH SKIN LESIONS, 2 TO 4 01/24/20 22 46427-VTOI SKIN LESIONS, 2 TO 4 10/15/19 22 32808-HNXU SKIN LESIONS, 2 TO 4 07/16/19 22 80592-VCZB SKIN LESIONS, 2 TO 4 06/15/19 21 90511-FKPG SKIN LESIONS, 2 TO 4 09/14/19 21 66262-QLJU SKIN LESIONS, 2 TO 4 01/01/20 21 95544-OGLK SKIN LESIONS, 2 TO 4 04/15/19 22 HEMOGLOBIN A1C (GLYCOHEMOGLOBIN) 020 Next Appt Details Provider Name:Stephanie Bedoya , 08/15/2024 11:00:00 AM, [address] [facility], [place], [address], Insurance Providers Payer Name Payer Address Payer Phone Subscriber Number Group Number Insured Name Patient Relationship to Insured Coverage Start Date Coverage End Date Medicare [facility] [address] [place] [address] [id number] Florentino Bean Self - patient is the insured [employer] [facility] [address] [place]ART[place] CHATTERJEE [id number] Florentino Bean Self - patient is the insured 0 Medical (General) History Medical History History ICD Code CAD (Cholesterol) Cancer Cataracts Diabetic Gout Heart disease High blood pressure Lung disease Poor circulation Psoriasis Warts Measles Chicken pox Vascular grafts Transfusions Surgical History Surgery Date(Month/Year) right above the knee amputation 2004 parotidectomy 05/30/2015 Hospitalization History Reason Date(Month/Year) [facility]- Covid-19 06/06 [facility] - Knee Amputation 200 4
--- OUTSIDE RECORDS SUMMARY | 2024-06-21 16:49 | XMS_ITS ---
Author Organization [facility] Address [address] [place] [address] Care Team Providers Care Analytical Statistician Name Role Phone Flakita Stewart Primary Care Provider Unavailabl e Black, Stephanie Unavailable [phone] Allergies Allergen (clinical drug ingredient) Drug/Non Drug [...] Ordered Date Performed Result Body Sit e 57573-TEOLMEN NAIL, 1-5 09/03/2023 N/A 94328-BOTY SKIN LESIONS, 2 TO 4 09/03/2023 N/A Encounters Encounter Location Date Provider Diagnosis [facility] [address] [address] 09/03/2023 Stephanie Bedoya Tinea unguium B35.1 and Type 2 diabetes mellitus with diabetic polyneuropathy E11.42 Assessments Encounter Date Diagnosis (ICD Code) Assessment Notes Treatment Notes Treatment Clinical Notes Section Notes 09/03/2023 Tinea unguium (ICD-10 - B35.1) 09/03/2023 Type 2 diabetes mellitus with diabetic polyneuropathy (ICD-10 - E11.42) Plan Of Treatment Pending Test Test Name Order Date 92350-OCTQUMM NAIL, 1-5 09/03/2023 18897-YAHL SKIN LESIONS, 2 TO 4 09/03/19 24 Next Appt Details Follow Up: prn, Reason: Provider Name:Stephanie Miller Aureliano , 08/15/2024 11:00:00 AM, [address] [place] [address] [place], [address], Procedure Notes * Category Sub-Category Detail Notes Keratoma Treatment Parring or Cutting o f Benign Hyperkeratotic Lesion(s) 88633 (2-4 Lesions) - The Benign hyperkeratotic lesions, [...] as necessary. Patient chooses, no pharmaceutical tx (54457) Progress Notes * Florentino BEAN RDOB: 8 (87 yo M)Acc No.[id number]:09/03/2023 Progress Note Patient:?Florentino Bean R Provider:?Stephanie Bedoya DPM :1935???Age:87 Y???Sex:Male Darryl e:09/03/2023 Address:[address] [place], [place] [id number] Pcp:Flakita Stewart Subjective: * Chief Complaints: * [...] E11.42 (Primary)? Plan: * Treatment: 2.?Tinea unguium?Procedure: 05004-IWVJDXQ NAIL, 1-5 * Procedures:?Debride Nails 1-5:?Procedure:?Nail debridement performed extensively to reduce/remove overall nail length and girth, subungual debris, and necrotic tissue, by manual and electrical means by use of a nail nipper and/or dremel, to more viable healthy nail plate or bed tissue 1-5. Silver nitrate used for any petechial bleeding as necessary. Patient chooses, no pharmaceutical tx (59666).?Keratoma Treatment:?Parring or Cutting of Benign Hyperkeratotic Lesion(s)?92274 (2-4 Lesions) - The Benign hyperkeratotic lesions, as described above were pared, and/or cut utilizing a sterile #15 blade, tissue nippers, and/or dremel.? * Procedure Codes:?74762 DEBRI DE NAIL, 1-5, Modifiers: Q7 18791 TRIM SKIN LESIONS, 2 TO 4, Modifiers: Q7 * Follow Up:?prn * Images: * Sign off status: Completed true * Provider:?Stephanie Bedoya DPM Date:?2023 Generated for Jessie chapa/Abilio/Gin on:?06/21/2024 04:49 PM EDT History and Physical [...]
--- OUTSIDE RECORDS SUMMARY | 2024-06-21 16:49 | XMS_ITS ---
Author Organization [facility] Address [address] [place] [address] Care Team Providers Care Boat Buffer Plastic Name Role Phone Flakita Stewart Primary Care Provider Stephanie Pagan [phone] John Encounters Encounter Location Date Provider Diagnosis [address] [address] 12/14/2023 Stephanie Bedoya Plan Of Treatment Next Appt Details Provider Name:Stephanie Miller Bedoya , 08/15/2024 11:00:00 AM, [address] [place] [address], [phone], Progress Notes * Florentino BEAN RDOB: (88 yo M)Acc No.[id number]:12/14/2023 Progress Note Patient:?Florentino BEAN Provider:?Stephanie Bedoya DPM :1935???Age:88 Y???Sex:Male Darryl e:12/14/2023 Address:[address] [place] [address] Pcp:Flakita Stewart Subjective: * Chief Complaints: * [...] Provider:Hector Bedoya DPM Date:?2023 Generated for Jessie hcapa/Abilio/Gin on:?06/21/2024 04:49 PM EDT
[2024-06-21 16:51] LABS: Appearance Urine Turbid; Color Urine Yellow; Glucose Urine UA 500 mg/dL (Negative); Leukocyte Esterase Urine Large (3+) (Negative); Nitrite Urine Negative (Negative); Specific Gravity - Urine 1.015 (1.005-1.025); UMIC TRIGGER UACC YES; Urine Blood Small (1+) (Negative); Urine Ketones Negative (Negative); Urine Protein 300 (3+) mg/dL (Neg-Trace)
[2024-06-21 17:01] LABS: Bacteria Urine None Seen (None Seen); RBC Urine 0-2 /HPF (0-2); Squamous Epithelial Cell Urine 0-2 /HPF (0-2); UACC Culture Trigger YES; WBC Urine >50 /HPF (0-5)
[2024-06-21 17:47] LABS: Reflex Lactate? 2 Y
--- NOTE | 2024-06-21 17:48 | PHA.MEDREC ---
Addendum entered by Mehran Esqueda [facility] 06/21/24 18:06: [facility] rec reviewed Addendum entered by Jessenia Porter 06/21/24 18:05: Patient confirmed her husbands gets the Incurse and Wixela inhalers, along with all his other medications, through a [facility] mail order system. Original Note: Pharmacy Consult ? Medication Reconciliation Pharmacy has completed the medication reconciliation. Spoke with patients spouse at the bedside who was able to confirm her husbands at home medications. She confirmed his Warfarin 5mg tab and confirmed he takes 1/2 tablet (2.5mg) on Sundays, Mondays, Tuesdays, Wednesdays, and Saturdays and 1 full tablet (5mg) on Fridays. She confirmed her still has the Incruse and Wixela inhalers and states the Incurse is taken once a day at bedtime and the Wixela was originally written 1 puff twice a day but states she has only seen the patient take it at night with the Incruse and not an additional one in the morning for a long time . She confirmed her last took his medications yesterday.
[2024-06-21] MEDS: Heparin Sodium,Porcine 5,000 UNIT/ML VIAL 5000 UNIT SUBCUT (17:56)
[2024-06-21 18:38] LABS: ~Lactic Acid-LAB USE ONLY 1.6 mmol/L (0.5-2.0)
[2024-06-21] MEDS: Albuterol/Iprat 2.5/0.5MG 3 ML AMPUL.NEB INHALE (20:19)
[2024-06-21] MEDS: Furosemide 20 MG/2 ML VIAL IVPUSH (20:48)
--- NOTE | 2024-06-21 23:24 | PC.NURSE ---
Report given to DEANGELO Espinosa.
[2024-06-22] VITALS (13 sets, daily range): BP systolic 111–134; BP diastolic 44–60; PULSE 73–111; RESP 16–22; TEMP 36.3–37; O2SAT 88–97; BMI 22.2
[2024-06-22 04:17] LABS: Venous Blood Gas Refer to POC result
[2024-06-22 04:43] LABS: VBG Base Excess -10.7 mmol/L; VBG HCO3 13 mmol/L (22-26); VBG pCO2 23 mmHg; VBG pH 7.35 (7.32-7.43); VBG pO2 60 mmHg
[2024-06-22 05:22] LABS: Hematocrit 28.1 % (42.0-52.0); Hemoglobin 8.8 g/dl (14.0-18.0); Mean Corpuscular HGB Conc 31.3 g/dl (31.0-36.0); Mean Corpuscular Hemoglobin 28.3 pg (27.0-33.0); Mean Corpuscular Volume 90.4 fL (80.0-98.0); Mean Platelet Volume 11.2 fL (9.4-12.4); Platelet Count 244 X10*3/uL (160-400); Red Blood Count 3.11 X10*6/uL (4.60-5.80); Red Cell Distribution Width 14.6 % (11.0-16.0); White Blood Count 10.1 X10*3/uL (4.8-10.8)
[2024-06-22 05:43] LABS: Alanine Aminotransferase 22 U/L (0-40); Albumin Level 3.1 g/dL (3.5-5.0); Alkaline Phosphatase 64 U/L (39-117); Anion Gap 13 (12-20); Aspartate Amino Transferase 26 U/L (5-37); Bilirubin Total 0.3 mg/dL (0.0-1.0); Blood Urea Nitrogen 83 mg/dL (9-16); Calcium 9.3 mg/dL (8.4-10.2); Carbon Dioxide 14 mmol/L (22-29); Chloride 116 mmol/L (96-108); Creatinine Clr Calc Pharmacy 18.5; Estimated Glomerular Filt Rate 19; Glucose Random 185 mg/dL (60-115); Potassium 5.4 mmol/L (3.3-5.1); Sodium 138 mmol/L (135-145); Total Protein 6.2 g/dL (6.5-8.0)
[2024-06-22 05:44] LABS: B Type Natriuretic Peptide 3078 pg/mL (<100)
[2024-06-22] MEDS: Heparin Sodium,Porcine 5,000 UNIT/ML VIAL 5000 UNIT SUBCUT ×2 (05:51→17:10)
--- NOTE | 2024-06-22 06:30 | PC.NURSE ---
this RN resumed care of pt at 0645. a&ox4. vss and up to date aside from pt noted to desat to 88% on 2L via NC. NC titrated to 3L w/ good effect - SPO2 @ 93%. pt positioned upright to promote patent airway. no sob/wob noted. respirations even/unlabored. pt denies any pain/has no complaints aside from stating he is uncomfortable d/t stretcher. pt turned/repositioned to comfort. 150ml of dark yellow/clear urine emptied/documented in I&O section. medication administered per provider order. pt provided w/ water. pending bed assignment. plan of care ongoing. call vargas placed within reach.
--- NOTE | 2024-06-22 06:32 | PC.NURSE ---
this RN resumed care of pt at 0300. a&ox4. vss and up to date aside from pt noted to desat to 88% on 2L via NC. NC titrated to 3L w/ good effect - SPO2 @ 93%. pt positioned upright to promote patent airway. no sob/wob noted. respirations even/unlabored. pt denies any pain/has no complaints aside from stating he is uncomfortable d/t stretcher. pt turned/repositioned to comfort. 150ml of dark yellow/clear urine emptied/documented in I&O section. medication administered per provider order. pt provided w/ water per pt request. pending bed assignment. plan of care ongoing. call vargas placed within reach.
--- NOTE | 2024-06-22 07:00 | CA_ITS ---
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 There is normal left ventricular wall thickness. The left ventricular systolic function is low normal. The visually estimated ejection fraction is between 50-55%. - The basal inferior segment is akinetic. - There is severe aortic valve stenosis. SVI 24. Severe paradoxical LFLG aortic stenosis. - There is moderate mitral valve regurgitation. - Significantly elevated right atrial pressure. Moderate to severe pulmonary hypertension is present. Findings Procedure Information Contrast agent, definity, is being given per protocol without apparent complications. The study quality is limited by the patients inability to tolerate the test. Left Ventricle Normal left ventricular cavity size. There is normal left ventricular wall thickness. The left ventricular systolic function is low normal. The visually estimated ejection fraction is between 50-55%. There is evidence of regional wall motion abnormalities. Diastolic function is indeterminate on the basis of available data. Wall Motion Rest Echo Findings The basal inferior segment is akinetic. Right Ventricle Mildly increased right ventricular cavity size. There is low normal right ventricular systolic function. Atria The left atrium is severely dilated. The right atrium is mildly dilated. Aortic Valve There is severe calcification of the aortic valve. There is severe aortic valve stenosis. The peak aortic velocity is 3.12 m/s. The mean gradient is 25 mmHg. The aortic valve area is 0.81 cm2. There is no aortic valve regurgitation. Mitral Valve There is mild mitral annular calcification. There is moderate mitral valve regurgitation. There is no mitral valve stenosis. Pulmonic Valve The pulmonic valve is likely normal. Tricuspid Valve Normal tricuspid valve structure. There is trace tricuspid valve regurgitation. The right ventricular systolic pressure is 56 mmHg. Significantly elevated right atrial pressure. Moderate to severe pulmonary hypertension is present. Great Vessels The aorta was not well visualized. Venous The inferior vena cava is dilated and does not collapse with inspiration. Pericardium/Pleural There is no evidence of pericardial effusion. There is a pleural effusion. Prior Study Comparison Changes noted compared to prior study dated: 11/03/2023. Paradoxical low flow low gradient severe present. Mod to severe pulm HTN. Moderate MR. Measurements 2D Linear Measurements IVSd: 1.07 0.6-0.9/0.6-1.0 cm LVIDd: 5.63 3.9-5.3/4.2-5.9 cm LVIDd Index: 2.79 2.4-3.2/2.2-3.1 cm/m2 LVIDs: 4.41 2.0-3.6 cm LVPWd: 0.86 0.7-1.1 cm LV Mass: 263.24 67-162/88-224 g LV Mass Index: 130.32 43-95/49-115 g/m2 LVOT Diam: 2.30 3.0+(-)1.3 cm 2D Systolic Function EF 2C: 51.50 >55% Mitral Valve MR Vol - PW Dopp: 31.02 MR VTI: 1.41 MR ERO: 22.00 MR Alias Sudhir: 0.39 MR RAD: 0.70 Aortic Valve AoV Pk Sudhir: 3.12 AoV Mn Sudhir: 2.40 AoV VTI: 0.60 AoV Pk Grad: 39.00 Aov Mn Grad: 25.00 GILMAR Cont.VTI: 0.81 LVOT LVOT Pk Sudhir: 0.56 LVOT Mn Sudhir: 0.37 LVOT VTI: 0.12 LVOT Pk Grad: 1.00 LVOT Mn Grad: 1.00 LVOT Diam: 2.30 LVOT Area: 4.15 Right Ventricle TAPSE (mm): 20.90 TVS' Sudhir: 9.57 Tricuspid Valve TR Pk Sudhir: 3.19 TR Pk Grad: 41.00 RA Press: 15.00 RVSP: 56.00 Updated in Other Vendor System with Status of Final Armando Batista MD electronically signed on 06/22/2024 9:08:04 PM with status of Final
[2024-06-22] MEDS: Albuterol/Iprat 2.5/0.5MG 3 ML AMPUL.NEB INHALE ×4 (07:22→19:28)
--- NOTE | 2024-06-22 07:30 | PC.NURSE ---
pt receiving breathing tx at this time via RT.
--- NOTE | 2024-06-22 09:27 | MHC.CM.PN ---
IMM 06/22/24, Pt lives with his , he does not have home health services, he has had services from [facility] in the past. For DME, he has prosthetic leg, w/c, walker, and cane. He is able to walk and complete ADLs independently. HCP discussed, he declined to complete form here. PCP confirmed: Dr. Stewart. to transport home at [place]. DCP: home either self care or with VNA. CM to follow for DC needs.
[2024-06-22] MEDS: Furosemide 20 MG/2 ML VIAL IVPUSH (09:47)
--- NOTE | 2024-06-22 10:27 | PM.CNNEP ---
History of Present Illness Reason for Consult Consult date: 06/22/24 Reason for consult: JULIO Chief Complaint Chief complaint: CHF History of Present Illness Narrative: 88-year-old man with CKD who follows with Dr Narvaez presented to ER with worsening shortness of breath. According to the patient he reports that this has been ongoing for many months now as he has a history of severe aortic stenosis. At home, he felt like an elephant was standing on his chest. He was getting short of breath and unable to ambulate. His BNP was noted to be elevated at 3752, initial troponin 160.7 with repeat of 149.5, initial lactic acid 2.6, potassium 5.9, creatinine 2.89,white blood cell count of 16.2.. Chest x-ray negative for consolidation, no obvious infection. In the ER patient was given a dose of Solu-Medrol, Rocephin, albuterol, calcium gluconate, Lokelma, Lasix, 250 mL of IV fluids. 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 Mother No problems noted. Surgical History Surgical History Stented coronary artery History of right above knee amputation History of parotid gland excision History of eye surgery Social History Social History Household Members: Spouse Housing: House Do you presently have visiting nurse or other home services: No Alcohol intake: never Patient Tobacco Use Status: Former Tobacco user Tobacco use type: Cigarette Years Smoked: quit 1988 Smoked in Last 30 Days: No e-Cigarette/Vaping Use: Never Used Second Hand Smoke Exposure: Yes Use of substances other than those prescribed or required for medical reasons: No Have you been hit, kicked, punched, or otherwise hurt by someone within the past year? If so, by whom?: No Do you feel safe in your current relationship?: Yes Is there a partner from a previous relationship who is making you feel unsafe now?: No Are you made to feel afraid or neglected: No [employer] Healthcare Practices: episcopal Advance Directives: No Advance Directives Information Provided: Yes Do you have a plan to hurt others: No Plan Recently lost weight without trying: Unsure Nutrition Risks: No Nutritional Risk Poor oral hygiene: Yes service: No Current occupational status: retired Cognitive needs: Yes (cane/walker/wheelchair) Hearing needs: Yes Vision needs: Yes (Glasses) Meds Allergies Allergy/AdvReac Type Severity Reaction Status Date / Time lisinopril [LISINOPRIL] Allergy Unknown HIVES Verified 06/21/24 12:55 Active Medications: Current Medications Acetaminophen (Acetaminophen 325 Mg Tablet) 650 mg PO Q6H PRN PRN Reason: Pain, Mild 1-3,fever,headache Albuterol/Ipratropium (Albuterol/Iprat 2.5/0.5mg 3 Ml Ampul.Neb) 3 ml INHALE RQ4H WHILE AWAKE [facility] Last Admin: 06/22/24 07:22 Dose: 3 ml Calcium Carbonate (Calcium Carbonate 750 Mg Tab.Chew) 750 mg PO Q4H PRN PRN Reason: Heartburn Furosemide (Furosemide 20 Mg/2 Ml Vial) 20 mg IVPUSH BID@0900,1800 [facility]; Protocol Last Admin: 06/22/24 09:47 Dose: 20 mg Heparin Sodium (Porcine) (Heparin Sodium,Porcine 5,000 Unit/Ml Vial) 5,000 unit SUBCUT Q12H [facility] Last Admin: 06/22/24 05:51 Dose: 5,000 unit Magnesium Hydroxide (Milk Of Magnesia 30 Ml Oral.Susp) 30 ml PO DAILY PRN PRN Reason: Constipation Melatonin (Melatonin 3 Mg Tablet) 6 mg PO BEDTIME PRN PRN Reason: Insomnia Ondansetron HCl (Ondansetron Hcl 4 Mg/2 Ml Vial) 4 mg IVPUSH Q8H PRN PRN Reason: Nausea and Vomiting Sodium Chloride (0.9 % Sodium Chloride Flush 3 Ml Syringe) 3 ml IVFLUSH QSHIFT [facility] Last Admin: 06/22/24 07:00 Dose: Not Given Home Medications ?Medication ?Instructions ?Recorded ?Confirmed ?Last Taken ?Type cholecalciferol (vitamin D3) 50 50 mcg PO DAILY 03/19/20 06/21/24 06/20/24 History mcg (2,000 unit) capsule lancets 28 gauge #100 ea 04/18/20 06/20/24 Unknown History docusate sodium 100 mg capsule 100 mg PO BEDTIME 10/28/23 06/21/24 06/20/24 History (Colace) amlodipine 10 mg tablet 10 mg PO BEDTIME 06/21/24 06/21/24 06/20/24 History fluticasone 500 mcg-salmeterol 50 1 inh inhalation BEDTIME 06/21/24 06/21/24 06/20/24 History mcg/dose blistr powdr for inhalation (Wixela Inhub) warfarin 5 mg tablet 2.5 mg PO SUMOTUWETHSA@1800 06/21/24 06/21/24 06/20/24 History warfarin 5 mg tablet 5 mg PO FR@1800 06/21/24 06/21/24 Unknown History Physical Exam Vital Signs: Last Vital Signs Temp 97.7 F 06/22/24 08:27 Pulse 89 06/22/24 08:27 Resp 20 06/22/24 08:27 BP 116/56 L 06/22/24 08:27 Pulse Ox 92 06/22/24 08:27 O2 Del Method Nasal Cannula 06/22/24 08:27 O2 Flow Rate 1.5 06/22/24 08:27 BMI result Body Mass Index 22.2 Const General: no acute distress Orientation/consciousness: patient oriented x3 Eyes EOM: EOMs intact bilaterally Resp Auscultation: diminished lung sounds Cardio Heart sounds: Murmur heart sound present GI Palpation (GI): Soft to palpation Neuro General: patient oriented x3 Results Lab Results 06/22/24 04:14 06/22/24 04:14 Lab results: Chemistry 06/21/24 06/22/24 13:14 04:14 Sodium 139 138 Potassium 5.9 H 5.4 H Carbon Dioxide 17 L 14 L BUN 74 H 83 H Creatinine 2.89 H 3.13 H Calcium 9.3 D 9.3 Hematology 06/21/24 06/22/24 13:14 04:14 WBC 16.2 H 10.1 Hgb 9.5 L 8.8 L Plt Count 258 244 Urinalysis 06/21/24 16:41 Urine Color Yellow Urine Appearance Turbid Urine pH 5.0 Ur Specific [place] 1.015 Urine Protein 300 (3+) H Urine Glucose (UA) 500 H Urine Ketones Negative Urine Blood Small (1+) H Urine Nitrite Negative Ur Leukocyte Esterase Large (3+) H Urine RBC 0-2 Urine WBC >50 H Ur Squamous Epith Cells 0-2 Hyaline Casts 3-5 Assessment and Plan (1) Acute kidney injury superimposed on chronic kidney disease: Status: Acute Plan JULIO 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 Will benefit from TAVR At risk for worsening renal function given CKD- if cath is done Getting diuresis. Cardiology to see No indication for renal replacement Metabolically acidotic. Needs PO NaHCO3 650 mg bid Shall closely follow up Procedures Date of Service Date of Service: 06/22/24
--- NOTE | 2024-06-22 10:40 | P.CONCA_ITS ---
History of Present Illness History of Present Illness Date of Service: 06/22/24 Requesting physician: An Dubois Chief complaint: CHF, aortic stenosis Narrative: Pleasant 88 year gentleman multiple comorbidities including peripheral vascular disease with right above-knee amputation in 2003, aortic stenosis, paroxysmal atrial fibrillation on Coumadin, chronic kidney disease, hypertension, hyperlipidemia, COPD and left carotid stenosis. He has type 2 diabetes and diabetic nephropathy leading to CKD. His previous echocardiography has raise concern for low-flow low gradient severe aortic valve stenosis. Previously was not significantly symptomatic and some of his dyspnea was felt to be related to deconditioning but now presenting with shortness of breath and congestive heart failure. He was quite short of breath at the time of interview. He was on supplemental oxygen. Denying any chest discomfort syncope. He has acute kidney injury by blood workup. He is on 20 mg IV b.i.d. Lasix. He is wheezing all over. 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 Mother No problems noted. Surgical History Surgical History Stented coronary artery History of right above knee amputation History of parotid gland excision History of eye surgery Social History Social History Household Members: Spouse Housing: House Do you presently have visiting nurse or other home services: No Alcohol intake: never Patient Tobacco Use Status: Former Tobacco user Tobacco use type: Cigarette Years Smoked: quit 1988 Smoked in Last 30 Days: No e-Cigarette/Vaping Use: Never Used Second Hand Smoke Exposure: Yes Use of substances other than those prescribed or required for medical reasons: No Have you been hit, kicked, punched, or otherwise hurt by someone within the past year? If so, by whom?: No Do you feel safe in your current relationship?: Yes Is there a partner from a previous relationship who is making you feel unsafe now?: No Are you made to feel afraid or neglected: No [facility] Healthcare Practices: yarsani Advance Directives: No Advance Directives Information Provided: Yes Do you have a plan to hurt others: No Plan Recently lost weight without trying: Unsure Nutrition Risks: No Nutritional Risk Poor oral hygiene: Yes service: No Current occupational status: retired Cognitive needs: Yes (cane/walker/wheelchair) Hearing needs: Yes Vision needs: Yes (Glasses) Meds Allergies Allergy/AdvReac Type Severity Reaction Status Date / Time lisinopril [LISINOPRIL] Allergy Unknown HIVES Verified 06/21/24 12:55 Active Medications: Current Medications Acetaminophen (Acetaminophen 325 Mg Tablet) 650 mg PO Q6H PRN PRN Reason: Pain, Mild 1-3,fever,headache Albuterol/Ipratropium (Albuterol/Iprat 2.5/0.5mg 3 Ml Ampul.Neb) 3 ml INHALE RQ4H WHILE AWAKE [facility] Last Admin: 06/22/24 07:22 Dose: 3 ml Calcium Carbonate (Calcium Carbonate 750 Mg Tab.Chew) 750 mg PO Q4H PRN PRN Reason: Heartburn Furosemide (Furosemide 20 Mg/2 Ml Vial) 20 mg IVPUSH BID@0900,1800 [facility]; Protocol Last Admin: 06/22/24 09:47 Dose: 20 mg Heparin Sodium (Porcine) (Heparin Sodium,Porcine 5,000 Unit/Ml Vial) 5,000 unit SUBCUT Q12H [facility] Last Admin: 06/22/24 05:51 Dose: 5,000 unit Magnesium Hydroxide (Milk Of Magnesia 30 Ml Oral.Susp) 30 ml PO DAILY PRN PRN Reason: Constipation Melatonin (Melatonin 3 Mg Tablet) 6 mg PO BEDTIME PRN PRN Reason: Insomnia Ondansetron HCl (Ondansetron Hcl 4 Mg/2 Ml Vial) 4 mg IVPUSH Q8H PRN PRN Reason: Nausea and Vomiting Sodium Chloride (0.9 % Sodium Chloride Flush 3 Ml Syringe) 3 ml IVFLUSH QSHIFT [facility] Last Admin: 06/22/24 07:00 Dose: Not Given Home Medications ?Medication ?Instructions ?Recorded ?Confirmed ?Last Taken ?Type cholecalciferol (vitamin D3) 50 50 mcg PO DAILY 03/19/20 06/21/24 06/20/24 History mcg (2,000 unit) capsule lancets 28 gauge #100 ea 04/18/20 06/20/24 Unknown History docusate sodium 100 mg capsule 100 mg PO BEDTIME 10/28/23 06/21/24 06/20/24 History (Colace) amlodipine 10 mg tablet 10 mg PO BEDTIME 06/21/24 06/21/24 06/20/24 History fluticasone 500 mcg-salmeterol 50 1 inh inhalation BEDTIME 06/21/24 06/21/24 06/20/24 History mcg/dose blistr powdr for inhalation (Wixela Inhub) warfarin 5 mg tablet 2.5 mg PO SUMOTUWETHSA@1800 06/21/24 06/21/24 06/20/24 History warfarin 5 mg tablet 5 mg PO FR@1800 06/21/24 06/21/24 Unknown History Physical Exam 2 Vital Signs: Vital Signs: Last Vital Signs Temp 97.7 F 06/22/24 08:27 Pulse 89 06/22/24 08:27 Resp 20 06/22/24 08:27 BP 116/56 L 06/22/24 08:27 Pulse Ox 92 06/22/24 08:27 O2 Del Method Nasal Cannula 06/22/24 08:27 O2 Flow Rate 1.5 06/22/24 08:27 BMI result Body Mass Index 22.2 GENERAL APPEARANCE: Short of breath, wheezing on supplemental oxygen. NECK: no carotid bruit, + jugular venous distention. SKIN: no suspicious lesions, warm and dry. HEART: Systolic murmur, difficult to get more characteristics because patient has significant wheezing.. LUNGS: Bilateral wheezes. ABDOMEN: soft, nontender. EXTREMITIES: Right [id number] amputation. Left lower extremity edema 1+. NEUROLOGIC: No gross deficits, AAO X 3 Objective Labs and Meds 06/22/24 04:14 06/22/24 04:14 Lab results: Laboratory Results - last 24 hr 06/21/24 06/21/24 06/21/24 13:14 13:28 15:21 WBC 16.2 H RBC 3.31 L Hgb 9.5 L Hct 29.7 L MCV 89.7 MCH 28.7 MCHC 32.0 RDW 14.5 Plt Count 258 MPV 10.5 Immature Gran % (Auto) 0.9 H Neut % (Auto) 78.1 H Lymph % (Auto) 10.5 L [place] % (Auto) 10.4 Eos % (Auto) 0.0 Baso % (Auto) 0.1 Lymph # (Auto) 1.7 [place] # (Auto) 1.7 H Eos # (Auto) 0.0 Baso # (Auto) 0.0 Abs Immat Gran (auto) 0.14 H Absolute Neuts (auto) 12.7 H Absolute Nucleated RBC 0.000 Nucleated RBC % (auto) 0.0 Smear Tech's Comments VERIFIED PT 38.7 H INR 3.3 H D VBG pH 7.21 L VBG pCO2 44 VBG pO2 29 VBG HCO3 18 L VBG O2 Saturation 33.0 VBG Base Excess -8.9 Sodium 139 Potassium 5.9 H Chloride 116 H Carbon Dioxide 17 L Anion Gap 12 BUN 74 H Creatinine 2.89 H Estim Creat Clear Calc 20.1 Estimated GFR 21 Random Glucose 154 H Lactic Acid 2.6 H* Lactic Acid F/U @ 2Hr Lactic Acid F/U @ 4Hr Calcium 9.3 D Magnesium 2.1 Total Bilirubin 0.4 Direct Bilirubin 0.2 AST 28 ALT 24 Alkaline Phosphatase 69 Troponin I High Sens 160.7 H* 149.5 H* B-Natriuretic Peptide 3752 H Total Protein 6.5 Albumin 3.4 L Lipase 16 Urine Color Urine Appearance Urine pH Ur Specific [place] Urine Protein Urine Glucose (UA) Urine Ketones Urine Blood Urine Nitrite Ur Leukocyte Esterase Urine RBC Urine WBC Ur Squamous Epith Cells Urine Bacteria Hyaline Casts Influenza Type A (PCR) NEGATIVE Influenza Type B (PCR) NEGATIVE RSV RNA Qual (PCR) NEGATIVE SARS-CoV-2 RNA (RT-PCR) NEGATIVE 06/21/24 06/21/24 06/21/24 15:44 16:41 18:14 WBC RBC Hgb Hct MCV MCH MCHC RDW Plt Count MPV Immature Gran % (Auto) Neut % (Auto) Lymph % (Auto) [place] % (Auto) Eos % (Auto) Baso % (Auto) Lymph # (Auto) [place] # (Auto) Eos # (Auto) Baso # (Auto) Abs Immat Gran (auto) Absolute Neuts (auto) Absolute Nucleated RBC Nucleated RBC % (auto) Smear Tech's Comments PT INR VBG pH VBG pCO2 VBG pO2 VBG HCO3 VBG O2 Saturation VBG Base Excess Sodium Potassium Chloride Carbon Dioxide Anion Gap BUN Creatinine Estim Creat Clear Calc Estimated GFR Random Glucose Lactic Acid Lactic Acid F/U @ 2Hr 2.4 H* Lactic Acid F/U @ 4Hr 1.6 Calcium Magnesium Total Bilirubin Direct Bilirubin AST ALT Alkaline Phosphatase Troponin I High Sens B-Natriuretic Peptide Total Protein Albumin Lipase Urine Color Yellow Urine Appearance Turbid Urine pH 5.0 Ur Specific [place] 1.015 Urine Protein 300 (3+) H Urine Glucose (UA) 500 H Urine Ketones Negative Urine Blood Small (1+) H Urine Nitrite Negative Ur Leukocyte Esterase Large (3+) H Urine RBC 0-2 Urine WBC >50 H Ur Squamous Epith Cells 0-2 Urine Bacteria None Seen Hyaline Casts 3-5 Influenza Type A (PCR) Influenza Type B (PCR) RSV RNA Qual (PCR) SARS-CoV-2 RNA (RT-PCR) 06/22/24 06/22/24 04:14 04:17 WBC 10.1 RBC 3.11 L Hgb 8.8 L Hct 28.1 L MCV 90.4 MCH 28.3 MCHC 31.3 RDW 14.6 Plt Count 244 MPV 11.2 Immature Gran % (Auto) Neut % (Auto) Lymph % (Auto) [place] % (Auto) Eos % (Auto) Baso % (Auto) Lymph # (Auto) [place] # (Auto) Eos # (Auto) Baso # (Auto) Abs Immat Gran (auto) Absolute Neuts (auto) Absolute Nucleated RBC 0.000 Nucleated RBC % (auto) 0.0 Smear Tech's Comments PT INR VBG pH 7.35 VBG pCO2 23 VBG pO2 60 VBG HCO3 13 L VBG O2 Saturation 93.0 VBG Base Excess -10.7 Sodium 138 Potassium 5.4 H Chloride 116 H Carbon Dioxide 14 L Anion Gap 13 BUN 83 H Creatinine 3.13 H Estim Creat Clear Calc 18.5 Estimated GFR 19 Random Glucose 185 H Lactic Acid Lactic Acid F/U @ 2Hr Lactic Acid F/U @ 4Hr Calcium 9.3 Magnesium Total Bilirubin 0.3 Direct Bilirubin AST 26 ALT 22 Alkaline Phosphatase 64 Troponin I High Sens B-Natriuretic Peptide 3078 H Total Protein 6.2 L Albumin 3.1 L Lipase Urine Color Urine Appearance Urine pH Ur Specific [place] Urine Protein Urine Glucose (UA) Urine Ketones Urine Blood Urine Nitrite Ur Leukocyte Esterase Urine RBC Urine WBC Ur Squamous Epith Cells Urine Bacteria Hyaline Casts Influenza Type A (PCR) Influenza Type B (PCR) RSV RNA Qual (PCR) SARS-CoV-2 RNA (RT-PCR) Imaging Radiologist's impression: Impressions Chest X-Ray 06/21/24 12:54 IMPRESSION: No active pulmonary disease. Electronically signed by: Venu Hair MD 06/21/2024 01:46 PM EDT RP Assessment and Plan (1) CHF (congestive heart failure): Qualifiers: Heart failure chronicity: acute Heart failure type: unspecified Q ualified Code(s): I50.9 - Heart failure, unspecified Status: Acute (2) Aortic stenosis: Qualifiers: Cardiac valve disease etiology: nonrheumatic Qualified Code(s): I35.0 - Nonrheumatic aortic (valve) stenosis Status: Acute Plan Pleasant 88 year gentleman with multiple comorbidities as mentioned above presenting with shortness of breath and congestive heart failure. Clinically volume overloaded. Increasing diuretics to 40 mg IV b.i.d. because he has baseline CKD and currently has acute kidney injury also. I think kidney injuries a combination of poor forward flow and medications including losartan. Losartan is on hold currently. Continue to diurese with 40 mg IV b.i.d. Lasix. On warfarin for anticoagulation for atrial fibrillation. INR target 2-3. We will repeat echocardiogram today to reassess the aortic stenosis. I had a discussion with Dr. Chaudhari and in his opinion the patient is a candidate for transcatheter aortic valve replacement. I told Florentino that currently the goal is to help him feel better and then have some assessment for transcatheter aortic valve replacement. This may require cardiac catheterization and he will need TAVR protocol CTA and discussion with the surgeon. Once he is stabilized we can have further discussion and workup for aortic stenosis. Thank you for allowing me to participate in the care of your patient. Please feel free to contact me if you have any questions. Procedures Date of Service Date of Service: 06/22/24
--- NOTE | 2024-06-22 11:25 | P.PNIM_ITS ---
Subjective Subjective Date of Service: 06/22/24 Physical Exam 2 Vital Signs: Vital Signs: Last Vital Signs Temp 97.7 F 06/22/24 08:27 Pulse 89 06/22/24 08:27 Resp 20 06/22/24 08:27 BP 116/56 L 06/22/24 08:27 Pulse Ox 92 06/22/24 08:27 O2 Del Method Nasal Cannula 06/22/24 08:27 O2 Flow Rate 1.5 06/22/24 08:27 BMI result Body Mass Index 22.2 Objective Data Active Medications Acetaminophen (Acetaminophen 325 Mg Tablet) 650 mg PO Q6H PRN PRN Reason: Pain, Mild 1-3,fever,headache Albuterol/Ipratropium (Albuterol/Iprat 2.5/0.5mg 3 Ml Ampul.Neb) 3 ml INHALE RQ4H WHILE AWAKE [facility] Last Admin: 06/22/24 07:22 Dose: 3 ml Documented By: ALEXANDER Calcium Carbonate (Calcium Carbonate 750 Mg Tab.Chew) 750 mg PO Q4H PRN PRN Reason: Heartburn Furosemide (Furosemide 20 Mg/2 Ml Vial) 40 mg IVPUSH BID@0900,1800 [facility]; Protocol Heparin Sodium (Porcine) (Heparin Sodium,Porcine 5,000 Unit/Ml Vial) 5,000 unit SUBCUT Q12H [facility] Last Admin: 06/22/24 05:51 Dose: 5,000 unit Documented By: LEXIE Magnesium Hydroxide (Milk Of Magnesia 30 Ml Oral.Susp) 30 ml PO DAILY PRN PRN Reason: Constipation Melatonin (Melatonin 3 Mg Tablet) 6 mg PO BEDTIME PRN PRN Reason: Insomnia Ondansetron HCl (Ondansetron Hcl 4 Mg/2 Ml Vial) 4 mg IVPUSH Q8H PRN PRN Reason: Nausea and Vomiting Sodium Chloride (0.9 % Sodium Chloride Flush 3 Ml Syringe) 3 ml IVFLUSH QSHIFT [facility] Last Admin: 06/22/24 07:00 Dose: Not Given Documented By: LEXIE Non-Admin Reason: Patient Asleep Labs 06/22/24 04:14 06/22/24 04:14 Labs: Laboratory Results - last 24 hr 06/21/24 06/21/24 06/21/24 13:14 13:28 15:44 MCV 89.7 MCH 28.7 MCHC 32.0 RDW 14.5 Plt Count 258 MPV 10.5 Immature Gran % (Auto) 0.9 H Neut % (Auto) 78.1 H Lymph % (Auto) 10.5 L [place] % (Auto) 10.4 Eos % (Auto) 0.0 Baso % (Auto) 0.1 Lymph # (Auto) 1.7 [place] # (Auto) 1.7 H Eos # (Auto) 0.0 Baso # (Auto) 0.0 Abs Immat Gran (auto) 0.14 H Absolute Neuts (auto) 12.7 H Absolute Nucleated RBC 0.000 Nucleated RBC % (auto) 0.0 Smear Tech's Comments VERIFIED PT 38.7 H INR 3.3 H D VBG pH 7.21 L VBG pCO2 44 VBG pO2 29 VBG HCO3 18 L VBG O2 Saturation 33.0 VBG Base Excess -8.9 Anion Gap 12 Estim Creat Clear Calc 20.1 Estimated GFR 21 Random Glucose 154 H Lactic Acid 2.6 H* Lactic Acid F/U @ 2Hr 2.4 H* Lactic Acid F/U @ 4Hr Calcium 9.3 D Magnesium 2.1 Total Bilirubin 0.4 Direct Bilirubin 0.2 AST 28 ALT 24 Alkaline Phosphatase 69 B-Natriuretic Peptide 3752 H Total Protein 6.5 Albumin 3.4 L Lipase 16 Urine Color Urine Appearance Urine pH Ur Specific [place] Urine Protein Urine Glucose (UA) Urine Ketones Urine Blood Urine Nitrite Ur Leukocyte Esterase Urine RBC Urine WBC Ur Squamous Epith Cells Urine Bacteria Hyaline Casts Influenza Type A (PCR) NEGATIVE Influenza Type B (PCR) NEGATIVE RSV RNA Qual (PCR) NEGATIVE SARS-CoV-2 RNA (RT-PCR) NEGATIVE 06/21/24 06/21/24 06/22/24 16:41 18:14 04:14 MCV 90.4 MCH 28.3 MCHC 31.3 RDW 14.6 Plt Count 244 MPV 11.2 Immature Gran % (Auto) Neut % (Auto) Lymph % (Auto) [place] % (Auto) Eos % (Auto) Baso % (Auto) Lymph # (Auto) [place] # (Auto) Eos # (Auto) Baso # (Auto) Abs Immat Gran (auto) Absolute Neuts (auto) Absolute Nucleated RBC 0.000 Nucleated RBC % (auto) 0.0 Smear Tech's Comments PT INR VBG pH VBG pCO2 VBG pO2 VBG HCO3 VBG O2 Saturation VBG Base Excess Anion Gap 13 Estim Creat Clear Calc 18.5 Estimated GFR 19 Random Glucose 185 H Lactic Acid Lactic Acid F/U @ 2Hr Lactic Acid F/U @ 4Hr 1.6 Calcium 9.3 Magnesium Total Bilirubin 0.3 Direct Bilirubin AST 26 ALT 22 Alkaline Phosphatase 64 B-Natriuretic Peptide 3078 H Total Protein 6.2 L Albumin 3.1 L Lipase Urine Color Yellow Urine Appearance Turbid Urine pH 5.0 Ur Specific [place] 1.015 Urine Protein 300 (3+) H Urine Glucose (UA) 500 H Urine Ketones Negative Urine Blood Small (1+) H Urine Nitrite Negative Ur Leukocyte Esterase Large (3+) H Urine RBC 0-2 Urine WBC >50 H Ur Squamous Epith Cells 0-2 Urine Bacteria None Seen Hyaline Casts 3-5 Influenza Type A (PCR) Influenza Type B (PCR) RSV RNA Qual (PCR) SARS-CoV-2 RNA (RT-PCR) 06/22/24 04:17 MCV MCH MCHC RDW Plt Count MPV Immature Gran % (Auto) Neut % (Auto) Lymph % (Auto) [place] % (Auto) Eos % (Auto) Baso % (Auto) Lymph # (Auto) [place] # (Auto) Eos # (Auto) Baso # (Auto) Abs Immat Gran (auto) Absolute Neuts (auto) Absolute Nucleated RBC Nucleated RBC % (auto) Smear Tech's Comments PT INR VBG pH 7.35 VBG pCO2 23 VBG pO2 60 VBG HCO3 13 L VBG O2 Saturation 93.0 VBG Base Excess -10.7 Anion Gap Estim Creat Clear Calc Estimated GFR Random Glucose Lactic Acid Lactic Acid F/U @ 2Hr Lactic Acid F/U @ 4Hr Calcium Magnesium Total Bilirubin Direct Bilirubin AST ALT Alkaline Phosphatase B-Natriuretic Peptide Total Protein Albumin Lipase Urine Color Urine Appearance Urine pH Ur Specific [place] Urine Protein Urine Glucose (UA) Urine Ketones Urine Blood Urine Nitrite Ur Leukocyte Esterase Urine RBC Urine WBC Ur Squamous Epith Cells Urine Bacteria Hyaline Casts Influenza Type A (PCR) Influenza Type B (PCR) RSV RNA Qual (PCR) SARS-CoV-2 RNA (RT-PCR) Assessment and Plan (1) CHF (congestive heart failure): Status: Acute Plan 88 year old man admitted with CHF and worsening Aortic stenosis HFpEF Monitor on telemetry BNP 3078 IV lasix 40 BID Cardiology consultation>Continue diuresis, echocardiogram pending Aortic stenosis Last echo with valve area 0.78 contributing to symptoms monitor fluid intake and output cardiology consultation UTI ua pos follow urine cx Rocephin added Leukocytosis. resolved no obvious infectious source monitor UA pos follow blood cx Hyperkalemia Lokelma Follow BMP JULIO on CKD4 likely from fluid overload follow BMP nephro consult Lactic acidosis ? related to CHF no obvious infectious source Acute metabolic acidosis VBG 7.///18 History of chronic kidney disease Repeat VBG in the morning HTN stable blood pressure hold antihypertensives for now to avoid hypotension DVT prophylaxis with heparin Full code Quality Stroke Does the patient have a stroke diagnosis?: No VTE Prior VTE?: No VTE Risk Level:: Medical - moderate - high VTE Device Contraindication: Treatment Not Indicated VTE Drug Contraindication: N/A - Med Ordered
[2024-06-22] MEDS: Sodium Zirconium Cyclosilicate 10 GM POWD.PACK PO (11:26)
[2024-06-22 11:43] LABS: Glucose, Whole Blood 163 mg/dL (60-115)
[2024-06-22] MEDS: cefTRIAXone sodium 1 GM VIAL IVPUSH (12:27)
[2024-06-22 12:39] LABS: Estimated Average Glucose 134 mg/dL; Hemoglobin A1C 108.3449 umol/L; Hemoglobin A1c % 6.3 % (<6.0); Total Hemoglobin (HGBA1C) 2402.2393 umol/L
[2024-06-22 16:05] LABS: Glucose, Whole Blood 142 mg/dL (60-115)
[2024-06-22] MEDS: 0.9 % Sodium Chloride Flush 3 ML SYRINGE IVFLUSH ×2 (17:11→21:28)
[2024-06-22] MEDS: Furosemide 20 MG/2 ML VIAL 40 MG IVPUSH (18:36)
[2024-06-22 21:17] LABS: Glucose, Whole Blood 163 mg/dL (60-115)
[2024-06-23] VITALS (10 sets, daily range): BP systolic 127–152; BP diastolic 58–69; PULSE 99–127; RESP 16–25; TEMP 36.8–37.2; O2SAT 86–98
--- NOTE | 2024-06-23 | ECG_ITS ---
Test Reason : CP Blood Pressure : */* mmHG Vent. Rate : 115 BPM Atrial Rate : * BPM P-R Int : * ms QRS Dur : 152 ms QT Int : 318 ms P-R-T Axes : * 56 -22 degrees QTcB Int : 439 ms Atrial fibrillation with rapid ventricular response Non-specific intra-ventricular conduction block Abnormal ECG When compared with ECG of 21-Jun-2024 12:53, Atrial fibrillation has replaced Sinus rhythm Vent. rate has increased by 44 bpm T wave inversion now evident in Inferior leads Referred By: Stella Louis Electronically Signed By: Armando Batista
[2024-06-23 07:06] LABS: Glucose, Whole Blood 152 mg/dL (60-115)
[2024-06-23] MEDS: Albuterol/Iprat 2.5/0.5MG 3 ML AMPUL.NEB INHALE ×3 (08:03→18:59)
[2024-06-23] MEDS: Furosemide 20 MG/2 ML VIAL 40 MG IVPUSH (08:45)
[2024-06-23] MEDS: Heparin Sodium,Porcine 5,000 UNIT/ML VIAL 5000 UNIT SUBCUT (08:46)
[2024-06-23] MEDS: 0.9 % Sodium Chloride Flush 3 ML SYRINGE IVFLUSH ×3 (08:49→23:54)
[2024-06-23 09:30] LABS: Hematocrit 28.8 % (42.0-52.0); Hemoglobin 9.1 g/dl (14.0-18.0); Mean Corpuscular HGB Conc 31.6 g/dl (31.0-36.0); Mean Corpuscular Hemoglobin 28.2 pg (27.0-33.0); Mean Corpuscular Volume 89.2 fL (80.0-98.0); Platelet Count 292 X10*3/uL (160-400); Red Blood Count 3.23 X10*6/uL (4.60-5.80); Red Cell Distribution Width 14.8 % (11.0-16.0); White Blood Count 13.8 X10*3/uL (4.8-10.8)
[2024-06-23 09:36] LABS: INTERNATIONAL NORM RATIO 4.3 (0.9-1.1); Prothrombin Time 49.9 SEC (10.9-12.4)
[2024-06-23 09:48] LABS: Anion Gap 17 (12-20); B Type Natriuretic Peptide 3689 pg/mL (<100); Blood Urea Nitrogen 103 mg/dL (9-16); Calcium 9.6 mg/dL (8.4-10.2); Carbon Dioxide 15 mmol/L (22-29); Chloride 112 mmol/L (96-108); Glucose Random 169 mg/dL (60-115); Potassium 5.4 mmol/L (3.3-5.1); Sodium 139 mmol/L (135-145)
[2024-06-23 09:50] LABS: Creatinine Clr Calc Pharmacy 13.8; Estimated Glomerular Filt Rate 14
[2024-06-23 10:23] LABS: Procalcitonin 0.77 ng/mL
[2024-06-23] MEDS: Doxycycline Hyclate 100 MG in 0.9 % Sodium Chloride 250 ML 166.67 MG IV ×2 (10:28→21:33)
[2024-06-23 10:55] LABS: Glucose, Whole Blood 178 mg/dL (60-115)
--- NOTE | 2024-06-23 11:18 | P.PNIM_ITS ---
Subjective Subjective Date of Service: 06/23/24 Interval History: seen and examined this morning follow up for CHF Patient seen and examined this morning, appears dyspnic pt reports sob, denies cough Review of Systems Review of Systems: Yes all other systems are reviewed and are negative Constitutional Constitutional: Denies chills and Denies fever(s) Cardiovascular Cardiovascular: Denies chest pain, Denies palpitations and Denies dyspnea Respiratory Respiratory: Denies dyspnea Gastrointestinal Gastrointestinal: Denies abdominal pain, Denies nausea and Denies vomiting Endocrine Endocrine: Denies palpitations Physical Exam 2 Vital Signs: Vital Signs: Last Vital Signs Temp 98.4 F 06/23/24 11:04 Pulse 106 H 06/23/24 11:04 Resp 22 H 06/23/24 11:04 BP 127/69 06/23/24 11:04 Pulse Ox 92 06/23/24 11:04 O2 Del Method Nasal Cannula 06/23/24 11:04 O2 Flow Rate 1 06/23/24 11:04 BMI result Body Mass Index 22.2 Const: General: alert and awake Nutritional Appearance: average body habitus Orientation/consciousness: patient oriented x3 Resp: Other: Effort & Inspection: no cough and tachypneic Cardio: Rate: tachycardic GI: Inspection: No distended Palpation (GI): Soft to palpation and nontender Neuro: Other: grossly nonfocal General: patient oriented x3 Extrem: Other: s/p R AKA; LLE edema Objective Data Active Medications Acetaminophen (Acetaminophen 325 Mg Tablet) 650 mg PO Q6H PRN PRN Reason: Pain, Mild 1-3,fever,headache Albuterol/Ipratropium (Albuterol/Iprat 2.5/0.5mg 3 Ml Ampul.Neb) 3 ml INHALE RQ4H WHILE AWAKE COUNTS [facility]CLUDE 234 BEDS AT THE [facility] Last Admin: 06/23/24 08:03 Dose: 3 ml Documented By: SCOVILH Calcium Carbonate (Calcium Carbonate 750 Mg Tab.Chew) 750 mg PO Q4H PRN PRN Reason: Heartburn Ceftriaxone Sodium (Ceftriaxone Sodium 1 Gm Vial) 1 gm IVPUSH Q24H COUNTS INCLUDE 234 BEDS AT THE [facility] Last Admin: 06/22/24 12:27 Dose: 1 gm Documented By: DOUBLEN Dextrose (Dextrose 50 % 25 Gm/50 Ml Syringe) 25 gm IVPUSH Q15M PRN; Protocol PRN Reason: per Hypoglycemia Standing Ord. Furosemide (Furosemide 20 Mg/2 Ml Vial) 40 mg IVPUSH BID@0900,1800 COUNTS INCLUDE 234 BEDS AT THE [facility]; Protocol Last Admin: 06/23/24 08:45 Dose: 40 mg Documented By: ARTHUR Glucose (Glucose Gel 15 Gm Gel..Gram.) 15 gm PO Q15M PRN; Protocol PRN Reason: per Hypoglycemia Standing Ord. Heparin Sodium (Porcine) (Heparin Sodium,Porcine 5,000 Unit/Ml Vial) 5,000 unit SUBCUT Q12H COUNTS INCLUDE 234 BEDS AT THE [facility] Last Admin: 06/23/24 08:46 Dose: 5,000 unit Documented By: ARTHUR Doxycycline Hyclate 100 mg/ (Sodium Chloride) 250 mls @ 166.67 mls/hr IV Q12H COUNTS INCLUDE 234 BEDS AT THE [facility] Last Admin: 06/23/24 10:28 Dose: 166.67 mls/hr Documented By: ARTHUR Insulin Human Lispro (Insulin Lispro 100 Unit/Ml 3 Ml Vial) 0 unit SUBCUT QIDACHS COUNTS INCLUDE 234 BEDS AT THE [facility]; Protocol Last Admin: 06/23/24 07:22 Dose: Not Given Documented By: ARTHUR Non-Admin Reason: No Insulin Coverage Magnesium Hydroxide (Milk Of Magnesia 30 Ml Oral.Susp) 30 ml PO DAILY PRN PRN Reason: Constipation Melatonin (Melatonin 3 Mg Tablet) 6 mg PO BEDTIME PRN PRN Reason: Insomnia Ondansetron HCl (Ondansetron Hcl 4 Mg/2 Ml Vial) 4 mg IVPUSH Q8H PRN PRN Reason: Nausea and Vomiting Sodium Chloride (0.9 % Sodium Chloride Flush 3 Ml Syringe) 3 ml IVFLUSH QSHIFT COUNTS INCLUDE 234 BEDS AT THE [facility] Last Admin: 06/23/24 08:49 Dose: 3 ml Documented By: ARTHUR Labs 06/23/24 09:02 06/23/24 09:02 Labs: Laboratory Results - last 24 hr 06/22/24 06/22/24 06/22/24 04:14 11:39 15:56 MCV MCH MCHC RDW Plt Count MPV Absolute Nucleated RBC Nucleated RBC % (auto) PT INR Anion Gap Estim Creat Clear Calc Estimated GFR POC Glucose 163 H 142 H Random Glucose Estimat Average Glucose 134 Hemoglobin A1c % 6.3 H Calcium B-Natriuretic Peptide Procalcitonin 06/22/24 06/23/24 06/23/24 21:07 06:58 09:02 MCV 89.2 MCH 28.2 MCHC 31.6 RDW 14.8 Plt Count 292 MPV 11.0 Absolute Nucleated RBC 0.000 Nucleated RBC % (auto) 0.0 PT 49.9 H D INR 4.3 H Anion Gap 17 Estim Creat Clear Calc 13.8 Estimated GFR 14 POC Glucose 163 H 152 H Random Glucose 169 H Estimat Average Glucose Hemoglobin A1c % Calcium 9.6 B-Natriuretic Peptide 3689 H Procalcitonin 0.77 06/23/24 10:46 MCV MCH MCHC RDW Plt Count MPV Absolute Nucleated RBC Nucleated RBC % (auto) PT INR Anion Gap Estim Creat Clear Calc Estimated GFR POC Glucose 178 H Random Glucose Estimat Average Glucose Hemoglobin A1c % Calcium B-Natriuretic Peptide Procalcitonin Microbiology Microbiology Results: Microbiology 06/21/24 17:02 Urine Culture - Preliminary Urine clean catch - Clean Catch Midstream Enterococcus/Streptococcus sp 06/21/24 13:27 Blood Culture - Preliminary Blood - Venous No growth after 24 hours. 06/21/24 13:14 Blood Culture - Preliminary Blood - Venous No growth after 24 hours. Assessment and Plan (1) Metabolic acidosis: Status: Acute (2) Acute hyperkalemia: Status: Acute (3) CHF (congestive heart failure): Status: Acute (4) Acute kidney injury superimposed on chronic kidney disease: Status: Acute (5) Pneumonia: Status: Acute Plan This is an 88 year old man with history of , paroxysmal atrial fibrillation on Coumadin, diabetes, hypertension, CAD among others who presented with 3 days of shortness of breath found to have admitted with CHF and worsening Aortic stenosis HFpEF echo with basal inferior segment akinesis, severe aortic valve stenosis, moderate mitral valve regurgitation, moderate to severe pulmonary hypertension BNP trending up Cardiology following - ?candidate for TAVR, overall worsening renal function and respiratory status hold lasix for worsening renal function, will discuss with cardiology on [facility] at baseline, currently on hold seen by pulmonology - underlying lung dz not significant factor at this time Aortic stenosis worsening and likely cause of symptoms monitor fluid intake and output cardiology following unclear if pt candidate for TAVR UTI ua pos urine cx Enterococcus/Streptococcus 0-50,000 cfu Continue IV Rocephin for now until final culture results return Paroxysmal atrial fibrillation INR 4.3, hold Coumadin Metoprolol was not continued on admission, as patient is in acute CHF we will hold for now and discuss with Cardiology SIRS meets sirs criteria with leukocytosis, tachycardia Repeat chest x-ray showing possible pneumonia ?viral vs aspiration check RPP, procalcitonin repeat lactic acid, blood cultures will add doxy to ceftriaxone would hold off of IVF due to acute on chronic CHF check chest CT Hyperkalemia Lokelma Follow BMP JULIO on CKD4 Renal function worsening follow BMP nephro following DM Hba1c 6.3 continue SSI, POCs Acute metabolic acidosis VBG 7.21/44/29/18 History of chronic kidney disease started on sodium bicarb follow BMP HTN stable blood pressure hold antihypertensives for now to avoid hypotension BPH flomax DVT prophylaxis - on coumadin at baseline, stop heparin; follow INR Full code - due to worsening respiratory status and renal function had goals of care discussion with daughter Kalani at bedside, pt is ill and can't be in the hospital today. Overall problem seems to be worsening aortic stenosis, patient is not likely a candidate for surgical repair, if this is the case patient may not recover, worsening renal function is poor prognostic indicator. They will discuss goals moving forward including possibly changing code status. Daughter understands and is leaning towards conservative management at this time but would like to discuss further with her mother/siblings. HCP form signed with adult protective caseworker naming and daughter as HCP. Requires ongoing inpatient stay for management of respiratory status, acute CHF, worsening renal function, metabolic acidosis requiring specialist evaluation Quality Stroke Does the patient have a stroke diagnosis?: No VTE Prior VTE?: No VTE Risk Level:: Medical - moderate - high VTE Device Contraindication: Treatment Not Indicated VTE Drug Contraindication: N/A - Med Ordered
[2024-06-23 11:51] LABS: Lactic Acid 1.6 mmol/L (0.5-2.0)
[2024-06-23] MEDS: cefTRIAXone sodium 1 GM VIAL IVPUSH (11:55)
[2024-06-23] MEDS: Sodium Bicarbonate 650 MG TABLET PO ×2 (12:06→21:33)
--- NOTE | 2024-06-23 12:50 | PM.CNPUL ---
History of Present Illness History of Present Illness Consult date: 06/23/24 Chief complaint: Hypoxia Narrative: 88-year-old gentleman, former greater than 40 pack-year smoker, quit 1987, with underlying severe aortic stenosis, COPD, diabetes mellitus, CAD, PVD with right AKA admitted on 06/21/2024 with progressive dyspnea over several months. On evaluation patient with worsening underlying congestive heart failure and renal function. Initially started on empiric diuresis, but now with further worsening of renal function diuresis has been held. 2D echo cardiogram demonstrated severe aortic stenosis with preserved left-sided function, but significant pulmonary hypertension. Review of Systems Constitutional: Constitutional: Denies daytime sleepiness, Denies excessive sweating, Denies fatigue, Denies fever(s), Denies lethargy, Denies malaise, Denies night sweats, Denies snoring and Denies weight loss Eyes: Eyes: Denies blurry vision and Denies itchy eyes ENT: Denies nasal congestion, Denies post nasal drip, Denies sinus pain, Denies sinus pressure and Denies other ( Thrush) Cardiovascular: Cardiovascular: Denies chest pain, Reports pedal edema, Reports dyspnea, Reports dyspnea on exertion, Denies orthopnea and Denies paroxysmal nocturnal dyspnea Respiratory: Respiratory: Denies cough, Denies hemoptysis, Denies excessive phlegm production, Reports dyspnea, Reports dyspnea on exertion, Denies snoring and Denies wheezing Gastrointestinal: Gastrointestinal: Denies abdominal pain and Denies heartburn Musculoskeletal: Musculoskeletal: Denies myalgias, Denies arthralgias and Denies joint swelling Integumentary/Breasts: Skin/Breast: Denies rash Neurologic: Denies memory loss and Denies seizure-like activity Psychiatric: Psychiatric: Denies abnormal sleep pattern, Denies anxiety and Denies memory loss Endocrine: Endocrine: Denies excessive sweating, Denies fatigue and Denies heat intolerance Hematologic/Lymphatic: Hematologic/Lymphatic: Denies easy bruising Allergic/Immunologic: Allergic/Immunologic: Denies itchy eyes, Denies seasonal rhinorrhea and Denies wheezing PMFSH Past Medical History Medical History (Updated 06/23/24 @ 12:59 by Carlos Quintana MD) Medicare annual wellness visit, initial Aortic stenosis 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 Mother No problems noted. Surgical History Surgical History Stented coronary artery History of right above knee amputation History of parotid gland excision History of eye surgery Social History Social History Household Members: Spouse Housing: House Do you presently have visiting nurse or other home services: No Alcohol intake: never Patient Tobacco Use Status: Former Tobacco user Tobacco use type: Cigarette Years Smoked: quit 1988 Smoked in Last 30 Days: No e-Cigarette/Vaping Use: Never Used Second Hand Smoke Exposure: Yes Use of substances other than those prescribed or required for medical reasons: No Currently Displaying Signs/Symptoms of Drug Intoxication Withdrawal: No Have you been hit, kicked, punched, or otherwise hurt by someone within the past year? If so, by whom?: No Do you feel safe in your current relationship?: Yes Is there a partner from a previous relationship who is making you feel unsafe now?: No Are you made to feel afraid or neglected: No Sikhism Healthcare Practices: restorationist Advance Directives: No Advance Directives Information Provided: Yes Do you have a plan to hurt others: No Plan Recently lost weight without trying: Unsure Nutrition Risks: No Nutritional Risk Poor oral hygiene: Yes service: No Current occupational status: retired Cognitive needs: Yes (cane/walker/wheelchair) Hearing needs: Yes Vision needs: Yes (Glasses) Meds Allergies Allergy/AdvReac Type Severity Reaction Status Date / Time lisinopril [LISINOPRIL] Allergy Unknown HIVES Verified 06/21/24 12:55 Active Medications: Current Medications Acetaminophen (Acetaminophen 325 Mg Tablet) 650 mg PO Q6H PRN PRN Reason: Pain, Mild 1-3,fever,headache Albuterol/Ipratropium (Albuterol/Iprat 2.5/0.5mg 3 Ml Ampul.Neb) 3 ml INHALE RQ4H WHILE AWAKE DAVID Last Admin: 06/23/24 11:47 Dose: 3 ml Calcium Carbonate (Calcium Carbonate 750 Mg Tab.Chew) 750 mg PO Q4H PRN PRN Reason: Heartburn Ceftriaxone Sodium (Ceftriaxone Sodium 1 Gm Vial) 1 gm IVPUSH Q24H [facility] Last Admin: 06/23/24 11:55 Dose: 1 gm Dextrose (Dextrose 50 % 25 Gm/50 Ml Syringe) 25 gm IVPUSH Q15M PRN; Protocol PRN Reason: per Hypoglycemia Standing Ord. Docusate Sodium (Docusate Sodium 100 Mg Capsule) 100 mg PO BEDTIME [facility] Fluticasone/Vilanterol (Fluticasone/Vilanterol 200/25 Blst.W.Dev) 1 puff [facility] Furosemide (Furosemide 20 Mg/2 Ml Vial) 40 mg IVPUSH BID@0900,1800 [facility]; Protocol Last Admin: 06/23/24 08:45 Dose: 40 mg Glucose (Glucose Gel 15 Gm Gel..Gram.) 15 gm PO Q15M PRN; Protocol PRN Reason: per Hypoglycemia Standing Ord. Doxycycline Hyclate 100 mg/ (Sodium Chloride) 250 mls @ 166.67 mls/hr IV Q12H [facility] Last Infusion: 06/23/24 12:00 Dose: Infused Insulin Human Lispro (Insulin Lispro 100 Unit/Ml 3 Ml Vial) 0 unit SUBCUT QIDACHS [facility]; Protocol Last Admin: 06/23/24 11:55 Dose: Not Given Magnesium Hydroxide (Milk Of Magnesia 30 Ml Oral.Susp) 30 ml PO DAILY PRN PRN Reason: Constipation Melatonin (Melatonin 3 Mg Tablet) 6 mg PO BEDTIME PRN PRN Reason: Insomnia Ondansetron HCl (Ondansetron Hcl 4 Mg/2 Ml Vial) 4 mg IVPUSH Q8H PRN PRN Reason: Nausea and Vomiting Sodium Bicarbonate (Sodium Bicarbonate 650 Mg Tablet) 650 mg PO BID [facility] Last Admin: 06/23/24 12:06 Dose: 650 mg Sodium Chloride (0.9 % Sodium Chloride Flush 3 Ml Syringe) 3 ml IVFLUSH QSHIFT [facility] Last Admin: 06/23/24 08:49 Dose: 3 ml Tamsulosin HCl (Tamsulosin Hcl 0.4 Mg Capsule) 0.4 mg PO BEDTIME [facility] Tiotropium [place] (Tiotropium [place] 2.5 Mcg 1 Puff/2.5 Mcg Mist.Inhal) 2 puff INHALE RDAILY [facility] Home Medications ?Medication ?Instructions ?Recorded ?Confirmed ?Last Taken ?Type cholecalciferol (vitamin D3) 50 50 mcg PO DAILY 03/19/20 06/21/24 06/20/24 History mcg (2,000 unit) capsule lancets 28 gauge #100 ea 04/18/20 06/20/24 Unknown History docusate sodium 100 mg capsule 100 mg PO BEDTIME 10/28/23 06/21/24 06/20/24 History (Colace) amlodipine 10 mg tablet 10 mg PO BEDTIME 06/21/24 06/21/24 06/20/24 History fluticasone 500 mcg-salmeterol 50 1 inh inhalation BEDTIME 06/21/24 06/21/24 06/20/24 History mcg/dose blistr powdr for inhalation (Wixela Inhub) warfarin 5 mg tablet 2.5 mg PO SUMOTUWETHSA@1800 06/21/24 06/21/24 06/20/24 History warfarin 5 mg tablet 5 mg PO FR@1800 06/21/24 06/21/24 Unknown History Physical Exam Vital Signs: Vital Signs: Last Vital Signs Temp 98.4 F 06/23/24 11:04 Pulse 114 H 06/23/24 11:47 Resp 20 06/23/24 11:47 BP 127/69 06/23/24 11:04 Pulse Ox 92 06/23/24 11:04 O2 Del Method Nasal Cannula 06/23/24 11:04 O2 Flow Rate 1 06/23/24 11:04 BMI result Body Mass Index 22.2 Const: General: no acute distress, alert and awake Eyes: Sclerae: sclerae normal EOM: EOMs intact bilaterally Neck: Neck: Yes no lymphadenopathy, Yes trachea midline and Yes supple Resp: Effort & Inspection: normal respiratory effort and no respiratory distress Auscultation: clear to auscultation bilaterally Cardio: Rate: tachycardic Rhythm: regular rhythm Heart sounds: no gallops, no murmurs and no rubs GI: Palpation (GI): Soft to palpation and Other GI palpation findings present ( Nontender) Auscultation: normal bowel sounds Extrem: General: No clubbing, No cyanosis and Yes edema (Left 2+) Results Laboratory Findings 06/23/24 09:02 06/23/24 09:02 ABG, PT/INR, D-dimer: PT/INR, D-dimer PT 49.9 SEC (10.9-12.4) H D 06/23/24 09:02 INR 4.3 (0.9-1.1) H 06/23/24 09:02 Abnormal lab findings: Abnormal Labs 06/21/24 06/21/24 06/21/24 13:14 13:28 15:21 WBC 16.2 H RBC 3.31 L Hgb 9.5 L Hct 29.7 L Immature Gran % (Auto) 0.9 H Neut % (Auto) 78.1 H Lymph % (Auto) 10.5 L [place] # (Auto) 1.7 H Abs Immat Gran (auto) 0.14 H Absolute Neuts (auto) 12.7 H PT 38.7 H INR 3.3 H D VBG pH 7.21 L VBG HCO3 18 L Potassium 5.9 H Chloride 116 H Carbon Dioxide 17 L BUN 74 H Creatinine 2.89 H POC Glucose Random Glucose 154 H Hemoglobin A1c % Lactic Acid 2.6 H* Lactic Acid F/U @ 2Hr Troponin I High Sens 160.7 H* 149.5 H* B-Natriuretic Peptide 3752 H Total Protein Albumin 3.4 L Urine Protein Urine Glucose (UA) Urine Blood Ur Leukocyte Esterase Urine WBC 06/21/24 06/21/24 06/22/24 15:44 16:41 04:14 WBC RBC 3.11 L Hgb 8.8 L Hct 28.1 L Immature Gran % (Auto) Neut % (Auto) Lymph % (Auto) [place] # (Auto) Abs Immat Gran (auto) Absolute Neuts (auto) PT INR VBG pH VBG HCO3 Potassium 5.4 H Chloride 116 H Carbon Dioxide 14 L BUN 83 H Creatinine 3.13 H POC Glucose Random Glucose 185 H Hemoglobin A1c % 6.3 H Lactic Acid Lactic Acid F/U @ 2Hr 2.4 H* Troponin I High Sens B-Natriuretic Peptide 3078 H Total Protein 6.2 L Albumin 3.1 L Urine Protein 300 (3+) H Urine Glucose (UA) 500 H Urine Blood Small (1+) H Ur Leukocyte Esterase Large (3+) H Urine WBC >50 H 06/22/24 06/22/24 06/22/24 04:17 11:39 15:56 WBC RBC Hgb Hct Immature Gran % (Auto) Neut % (Auto) Lymph % (Auto) [place] # (Auto) Abs Immat Gran (auto) Absolute Neuts (auto) PT INR VBG pH VBG HCO3 13 L Potassium Chloride Carbon Dioxide BUN Creatinine POC Glucose 163 H 142 H Random Glucose Hemoglobin A1c % Lactic Acid Lactic Acid F/U @ 2Hr Troponin I High Sens B-Natriuretic Peptide Total Protein Albumin Urine Protein Urine Glucose (UA) Urine Blood Ur Leukocyte Esterase Urine WBC 06/22/24 06/23/24 06/23/24 21:07 06:58 09:02 WBC 13.8 H RBC 3.23 L Hgb 9.1 L Hct 28.8 L Immature Gran % (Auto) Neut % (Auto) Lymph % (Auto) [place] # (Auto) Abs Immat Gran (auto) Absolute Neuts (auto) PT 49.9 H D INR 4.3 H VBG pH VBG HCO3 Potassium 5.4 H Chloride 112 H Carbon Dioxide 15 L BUN 103 H Creatinine 4.03 H* POC Glucose 163 H 152 H Random Glucose 169 H Hemoglobin A1c % Lactic Acid Lactic Acid F/U @ 2Hr Troponin I High Sens B-Natriuretic Peptide 3689 H Total Protein Albumin Urine Protein Urine Glucose (UA) Urine Blood Ur Leukocyte Esterase Urine WBC 06/23/24 10:46 WBC RBC Hgb Hct Immature Gran % (Auto) Neut % (Auto) Lymph % (Auto) [place] # (Auto) Abs Immat Gran (auto) Absolute Neuts (auto) PT INR VBG pH VBG HCO3 Potassium Chloride Carbon Dioxide BUN Creatinine POC Glucose 178 H Random Glucose Hemoglobin A1c % Lactic Acid Lactic Acid F/U @ 2Hr Troponin I High Sens B-Natriuretic Peptide Total Protein Albumin Urine Protein Urine Glucose (UA) Urine Blood Ur Leukocyte Esterase Urine WBC Microbiology: Microbiology 06/21/24 17:02 Urine clean catch - Clean Catch Midstream Urine Culture - Preliminary Enterococcus/Streptococcus sp 06/21/24 13:27 Blood - Venous Blood Culture - Preliminary No growth after 24 hours. 06/21/24 13:14 Blood - Venous Blood Culture - Preliminary No growth after 24 hours. Assessment and Plan (1) Aortic stenosis: Qualifiers: Cardiac valve disease etiology: nonrheumatic Qualified Code(s): I35.0 - Nonrheumatic aortic (valve) stenosis Status: Acute (2) CHF (congestive heart failure): Qualifiers: Heart failure chronicity: acute Heart failure type: unspecified Qualified Code(s): I50.9 - Heart failure, unspecified Status: Acute (3) Acute kidney injury superimposed on chronic kidney disease: Status: Acute (4) COPD (chronic obstructive pulmonary disease): Qualifiers: COPD type: emphysema Emphysema type: unspecified Qualified Code(s): J43.9 - Emphysema, unspecified Status: Acute Plan Impression: 88-year-old gentleman with underlying severe aortic stenosis admitted with dyspnea were several months, now also with mild hypoxemia. Does have underlying COPD, but it is an unlikely a significant contributor to patient's current clinical concerns that appear to be centered around severe aortic stenosis resulting in poor forward flow to kidneys with ensuing renal dysfunction and metabolic acidosis, also related regurgitation to the right side resulting in pulmonary hypotension with at least some pulmonary edema. Recommendation: Switch Spiriva to Anoro. Continue as needed nebulized bronchodilators. Consider TAVR evaluation. Procedures Date of Service Date of Service: 06/23/24
[2024-06-23 13:45] LABS: Adenovirus PCR Not Detected (Not Detect.); Bordetella parapertussis PCR Not Detected (Not Detect.); Bordetella pertussis PCR Not Detected (Not Detect.); Chlamydia pneumoniae PCR Not Detected (Not Detect.); Coronavirus 229E PCR Not Detected (Not Detect.); Coronavirus HKU1 PCR Not Detected (Not Detect.); Coronavirus NL63 PCR Not Detected (Not Detect.); Coronavirus OC43 PCR Not Detected (Not Detect.); Human metapneumovirus PCR Not Detected (Not Detect.); Influenza A PCR Not Detected (Not Detect.); Influenza B PCR Not Detected (Not Detect.); Mycoplasma pneumoniae PCR Not Detected (Not Detect.); Parainfluenza 1 PCR Not Detected (Not Detect.); Parainfluenza 2 PCR Not Detected (Not Detect.); Parainfluenza 3 PCR Not Detected (Not Detect.); Parainfluenza 4 PCR Not Detected (Not Detect.); RSV PCR Not Detected (Not Detect.); Rhino/Enterovirus PCR Not Detected (Not Detect.); SARS-CoV-2 PCR Not Detected (Not Detect.)
[2024-06-23 14:27] LABS: Influenza A H1 PCR Not Detected (Not Detect.); Influenza A H1-2009 PCR Not Detected (Not Detect.); Influenza A H3 PCR Not Detected (Not Detect.)
[2024-06-23 14:29] LABS: ~Lactic Acid-LAB USE ONLY 2.4 mmol/L (0.5-2.0)
--- NOTE | 2024-06-23 15:11 | PM.PNCARD ---
Subjective Subjective Date of Service: 06/23/24 Interval history: Seen examined at bedside. Unfortunately he went into atrial fibrillation overnight and has taken a turn for worse. His kidney function has worsened and overall he just appears more short of breath and quite distressed. Family at bedside and had a detailed discussion with and daughter. Discussion with more about whether he should be kept comfortable going forward but the patient was awake and this was explained to the patient's and daughter that currently he is the 1 who is going to make decisions. I discussed with Florentino at bedside that he has severe aortic valve stenosis and there is significant worsening in his breathing and kidney function due to episode of atrial fibrillation. I have explained to him that cardioversion is a possibility with sedation which may or may not help him but given the trajectory of his current medical condition it was possible that he may not recover from current illness and may from this. He wished to think about it and did not want to pursue anything right now. He was changed to a non-rebreather and given 80 of Lasix. We will give him some amiodarone to see if he converts to sinus rhythm chemically. Physical Exam Vital Signs: Last Vital Signs Temp 98.4 F 06/23/24 11:04 Pulse 114 H 06/23/24 11:47 Resp 20 06/23/24 11:47 BP 127/69 06/23/24 11:04 Pulse Ox 92 06/23/24 11:04 O2 Del Method Nasal Cannula 06/23/24 11:04 O2 Flow Rate 1 06/23/24 11:04 BMI result Body Mass Index 22.2 GENERAL APPEARANCE: Significantly tachypneic. Looks tired. NECK: no carotid bruit, + jugular venous distention. SKIN: no suspicious lesions, warm and dry. HEART: Systolic murmur, tachycardic. LUNGS: Bilateral crackles at bases. ABDOMEN: soft, nontender. EXTREMITIES: Right [id number] amputation. Left lower extremity edema 1+. NEUROLOGIC: No gross deficits, AAO X 3 Objective Labs and Meds 06/23/24 09:02 06/23/24 09:02 Lab results: Laboratory Results - last 24 hr 06/21/24 06/22/24 06/22/24 15:44 15:56 21:07 WBC RBC Hgb Hct MCV MCH MCHC RDW Plt Count MPV Absolute Nucleated RBC Nucleated RBC % (auto) PT INR Sodium Potassium Chloride Carbon Dioxide Anion Gap BUN Creatinine Estim Creat Clear Calc Estimated GFR POC Glucose 142 H 163 H Random Glucose Lactic Acid Lactic Acid F/U @ 2Hr 2.4 H* Calcium B-Natriuretic Peptide Procalcitonin Respiratory Panel Fernández Adenovirus (Rapid PCR) B.pert (TEM-PCR) B.parapertussis DNA PCR C. pneumoniae DNA (PCR) Coronavirus OC43 (PCR) Coronavirus HKU1 (PCR) Coronavirus 229E (PCR) Coronavirus NL63 (PCR) Human Metapneumovir PCR Influenza A (RT-PCR) Influenza A (H1) PCR Influ A () PCR Influenza A (H3) PCR Influenza B (RT-PCR) M. pneumoniae (PCR) Parainfluenza 1 (PCR) Parainfluenza 2 (PCR) Parainfluenza 3 (PCR) Parainfluenza 4 (PCR) RSV (PCR) Entero/Rhino (PCR) SARS-CoV-2 RNA (RT-PCR) 06/23/24 06/23/24 06/23/24 06:58 09:02 10:46 WBC 13.8 H RBC 3.23 L Hgb 9.1 L Hct 28.8 L MCV 89.2 MCH 28.2 MCHC 31.6 RDW 14.8 Plt Count 292 MPV 11.0 Absolute Nucleated RBC 0.000 Nucleated RBC % (auto) 0.0 PT 49.9 H D INR 4.3 H Sodium 139 Potassium 5.4 H Chloride 112 H Carbon Dioxide 15 L Anion Gap 17 BUN 103 H Creatinine 4.03 H* Estim Creat Clear Calc 13.8 Estimated GFR 14 POC Glucose 152 H 178 H Random Glucose 169 H Lactic Acid Lactic Acid F/U @ 2Hr Calcium 9.6 B-Natriuretic Peptide 3689 H Procalcitonin 0.77 Respiratory Panel Fernández Adenovirus (Rapid PCR) B.pert (TEM-PCR) B.parapertussis DNA PCR C. pneumoniae DNA (PCR) Coronavirus OC43 (PCR) Coronavirus HKU1 (PCR) Coronavirus 229E (PCR) Coronavirus NL63 (PCR) Human Metapneumovir PCR Influenza A (RT-PCR) Influenza A (H1) PCR Influ A () PCR Influenza A (H3) PCR Influenza B (RT-PCR) M. pneumoniae (PCR) Parainfluenza 1 (PCR) Parainfluenza 2 (PCR) Parainfluenza 3 (PCR) Parainfluenza 4 (PCR) RSV (PCR) Entero/Rhino (PCR) SARS-CoV-2 RNA (RT-PCR) 06/23/24 06/23/24 11:19 12:37 WBC RBC Hgb Hct MCV MCH MCHC RDW Plt Count MPV Absolute Nucleated RBC Nucleated RBC % (auto) PT INR Sodium Potassium Chloride Carbon Dioxide Anion Gap BUN Creatinine Estim Creat Clear Calc Estimated GFR POC Glucose Random Glucose Lactic Acid 1.6 Lactic Acid F/U @ 2Hr Calcium B-Natriuretic Peptide Procalcitonin Respiratory Panel Fernández See Note Adenovirus (Rapid PCR) Not Detected B.pert (TEM-PCR) Not Detected B.parapertussis DNA PCR Not Detected C. pneumoniae DNA (PCR) Not Detected Coronavirus OC43 (PCR) Not Detected Coronavirus HKU1 (PCR) Not Detected Coronavirus 229E (PCR) Not Detected Coronavirus NL63 (PCR) Not Detected Human Metapneumovir PCR Not Detected Influenza A (RT-PCR) Not Detected Influenza A (H1) PCR Not Detected Influ A (H1/09) PCR Not Detected Influenza A (H3) PCR Not Detected Influenza B (RT-PCR) Not Detected M. pneumoniae (PCR) Not Detected Parainfluenza 1 (PCR) Not Detected Parainfluenza 2 (PCR) Not Detected Parainfluenza 3 (PCR) Not Detected Parainfluenza 4 (PCR) Not Detected RSV (PCR) Not Detected Entero/Rhino (PCR) Not Detected SARS-CoV-2 RNA (RT-PCR) Not Detected Imaging Radiologist's impression: Impressions Chest X-Ray 06/23/24 08:45 IMPRESSION: Increased patchy opacity in the right lower lung region suspicious for developing pneumonia. Electronically signed by: Venu Hair MD 06/23/2024 09:40 AM EDT Progress Note: A&P Assessment and plan (1) CHF (congestive heart failure): Status: Acute (2) Aortic stenosis: Status: Acute (3) Paroxysmal atrial fibrillation: Status: Acute Plan [age] year gentleman with peripheral vascular disease with previous above-knee amputation, severe low-flow low gradient aortic valve stenosis and paroxysmal atrial fibrillation presenting with new onset congestive heart failure. This is on background of aortic stenosis. Echocardiography has shown low-flow low gradient severe and moderate mitral valve regurgitation. He was started on IV diuretics yesterday but overnight developed atrial fibrillation with rapid ventricular response and has taken a turn for worse. I think AFib is the main reason he is clinically worsened at this point. I explained with the patient about the possibility of cardioversion but he wishes to think about it. We will start him on amiodarone in the meantime. There are some ongoing discussions with the family about code status/goals of care. The family wishes other family members to come in and then have a discussion with Florentino about goals of care. I have explained to the family that in this clinical situation doing any aggressive produces years like balloon valvoplasty may not change his outlook. I do believe that cardioversion may help him. In the meantime starting him on high-flow oxygen by non-rebreather and giving him 80 mg IV Lasix. Adding amiodarone 400 mg twice a day to see if he converts to sinus rhythm. We will follow along with you. Overall prognosis is guarded. Thank you for allowing me to participate in the care of your patient. Please feel free to contact me if you have any questions. Time Spent With Patient Time: Total time managing care of this patient today ____ minutes. Progress Note: Quality Stroke Does the patient have a stroke diagnosis?: No Procedures Date of Service Date of Service: 06/23/24
[2024-06-23] MEDS: Furosemide 100 MG/10 ML VIAL 80 MG IVPUSH (15:31)
[2024-06-23] MEDS: ondansetron HCL 4 MG/2 ML VIAL IVPUSH (15:57)
[2024-06-23 16:17] LABS: Glucose, Whole Blood 148 mg/dL (60-115)
--- NOTE | 2024-06-23 17:40 | MHC.SL.SWA ---
Speech Pathologist Impression: Risk of Aspiration Due to: Medically Fragile Dysphasia Diet Status: Liquid Consistency and Strategies for Safe Swallow: Liquid Intake Recommendation: Thin Liquid Intake Strategies: Small Sips Solid Food Consistency: Dietary Recommendations: Chopped/Advanced (NDD3) Additional Modifications to Solid Foods: If using straw, single sip only. Patient requires direct supervision with assistance as needed (including setting up tray, opening items, monitoring and assisting patient as needed) due to generalized weakness. Oral Medication Intake: Whole with Puree Please contact the pharmacy regarding appropriate crushable or liquid drug formulations that are available whenever modified delivery is recommended. Compensatory Strategies and Precautions to be Taken for Safe Swallow: Sitting Upright (90 deg) Liquids from Cup Small Bites and Sips Alternate Liquids/Solids Supervision While Eating and Drinking for Safe Swallow: Total Supervision (1:1) Foods to Avoid: Difficult to chew solids, dry, crunchy foods. Swallowing Recommended Treatments: Compens. Strategy Educat. Recommendation for Speech: Inpatient Speech Therapy Comment: Patient presents with a mild oral pharyngeal dysphagia secondary to partially missing teeth and absent swallow trigger. Patient also has generalized weakness and difficulty with self feeding. Recommend DOWNGRADE diet to Chopped/Advanced (for ease of mastication) continue with thin liquids, pills whole in puree. If patient uses straw, recommend single sips only (no serial sips), which patient demonstrated good control of during this evaluation. PA, RD, RN notified of recommendation by secure text, TOP TAPER MACHINE adjusted diet in expanse. TOP TAPER MACHINE to follow. Frequency/Duration: Date Range for Service Req: Timeline to reassess: Incinerator Attendant Clinican/Clinical Fellow: No Supervisory Statement: I have reviewed and agree with the student/clinical fellow's documentation: N/A Speech Language Pathologist: Bettye Cotton M.A., [facility]TOP TAPER MACHINE
--- NOTE | 2024-06-23 18:27 | PM.EVENT ---
Event Note Date of Service: 06/23/24 Event Note: Called by family to discuss code status Met with patient and multiple family members Explained to them what DNR DNI/WIRE BOUND BOX MACHINE OPERATOR and palliative care means Patient wishes to be DNR DNI he does not want chest compression or intubation but he wishes to be continued on current treatment Will change code status to DNR DNI. Time Spent With Patient Time: Total time managing care of this patient today ____ minutes.
--- NOTE | 2024-06-23 20:33 | P.PNNP_ITS ---
Subjective Subjective Date of Service: 06/23/24 Interval history: seen and examined this morning. Serum creatinine worse Physical Exam 2 Vital Signs: Vital Signs: Last Vital Signs Temp 98.9 F 06/23/24 19:59 Pulse 127 H 06/23/24 19:59 Resp 17 06/23/24 19:59 BP 137/63 06/23/24 19:59 Pulse Ox 93 06/23/24 19:59 O2 Del Method Oxymask 06/23/24 19:59 O2 Flow Rate 2 06/23/24 19:59 BMI result Body Mass Index 22.2 Const: Other: SOB Orientation/consciousness: patient oriented x3 Eyes: EOM: EOMs intact bilaterally Neck: Neck: Yes supple Resp: Auscultation: diminished lung sounds Cardio: Rate: regular rate GI: Palpation (GI): Soft to palpation Neuro: General: patient oriented x3 Objective Data Labs 06/23/24 09:02 06/23/24 09:02 Labs: Laboratory Results - last 24 hr 06/21/24 06/22/24 06/23/24 15:44 21:07 06:58 WBC RBC Hgb Hct MCV MCH MCHC RDW Plt Count MPV Absolute Nucleated RBC Nucleated RBC % (auto) PT INR Sodium Potassium Chloride Carbon Dioxide Anion Gap BUN Creatinine Estim Creat Clear Calc Estimated GFR POC Glucose 163 H 152 H Random Glucose Lactic Acid Lactic Acid F/U @ 2Hr 2.4 H* Calcium B-Natriuretic Peptide Procalcitonin Respiratory Panel Fernández Adenovirus (Rapid PCR) B.pert (TEM-PCR) B.parapertussis DNA PCR C. pneumoniae DNA (PCR) Coronavirus OC43 (PCR) Coronavirus HKU1 (PCR) Coronavirus 229E (PCR) Coronavirus NL63 (PCR) Human Metapneumovir PCR Influenza A (RT-PCR) Influenza A (H1) PCR Influ A (H1/09) PCR Influenza A (H3) PCR Influenza B (RT-PCR) M. pneumoniae (PCR) Parainfluenza 1 (PCR) Parainfluenza 2 (PCR) Parainfluenza 3 (PCR) Parainfluenza 4 (PCR) RSV (PCR) Entero/Rhino (PCR) SARS-CoV-2 RNA (RT-PCR) 06/23/24 06/23/24 06/23/24 09:02 10:46 11:19 WBC 13.8 H RBC 3.23 L Hgb 9.1 L Hct 28.8 L MCV 89.2 MCH 28.2 MCHC 31.6 RDW 14.8 Plt Count 292 MPV 11.0 Absolute Nucleated RBC 0.000 Nucleated RBC % (auto) 0.0 PT 49.9 H D INR 4.3 H Sodium 139 Potassium 5.4 H Chloride 112 H Carbon Dioxide 15 L Anion Gap 17 BUN 103 H Creatinine 4.03 H* Estim Creat Clear Calc 13.8 Estimated GFR 14 POC Glucose 178 H Random Glucose 169 H Lactic Acid 1.6 Lactic Acid F/U @ 2Hr Calcium 9.6 B-Natriuretic Peptide 3689 H Procalcitonin 0.77 Respiratory Panel Fernández Adenovirus (Rapid PCR) B.pert (TEM-PCR) B.parapertussis DNA PCR C. pneumoniae DNA (PCR) Coronavirus OC43 (PCR) Coronavirus HKU1 (PCR) Coronavirus 229E (PCR) Coronavirus NL63 (PCR) Human Metapneumovir PCR Influenza A (RT-PCR) Influenza A (H1) PCR Influ A () PCR Influenza A (H3) PCR Influenza B (RT-PCR) M. pneumoniae (PCR) Parainfluenza 1 (PCR) Parainfluenza 2 (PCR) Parainfluenza 3 (PCR) Parainfluenza 4 (PCR) RSV (PCR) Entero/Rhino (PCR) SARS-CoV-2 RNA (RT-PCR) 06/23/24 06/23/24 12:37 16:13 WBC RBC Hgb Hct MCV MCH MCHC RDW Plt Count MPV Absolute Nucleated RBC Nucleated RBC % (auto) PT INR Sodium Potassium Chloride Carbon Dioxide Anion Gap BUN Creatinine Estim Creat Clear Calc Estimated GFR POC Glucose 148 H Random Glucose Lactic Acid Lactic Acid F/U @ 2Hr Calcium B-Natriuretic Peptide Procalcitonin Respiratory Panel Fernández See Note Adenovirus (Rapid PCR) Not Detected B.pert (TEM-PCR) Not Detected B.parapertussis DNA PCR Not Detected C. pneumoniae DNA (PCR) Not Detected Coronavirus OC43 (PCR) Not Detected Coronavirus HKU1 (PCR) Not Detected Coronavirus 229E (PCR) Not Detected Coronavirus NL63 (PCR) Not Detected Human Metapneumovir PCR Not Detected Influenza A (RT-PCR) Not Detected Influenza A (H1) PCR Not Detected Influ A () PCR Not Detected Influenza A (H3) PCR Not Detected Influenza B (RT-PCR) Not Detected M. pneumoniae (PCR) Not Detected Parainfluenza 1 (PCR) Not Detected Parainfluenza 2 (PCR) Not Detected Parainfluenza 3 (PCR) Not Detected Parainfluenza 4 (PCR) Not Detected RSV (PCR) Not Detected Entero/Rhino (PCR) Not Detected SARS-CoV-2 RNA (RT-PCR) Not Detected Microbiology Microbiology Results: Microbiology 06/21/24 13:27 Blood - Venous Blood Culture - Preliminary No growth after 48 hours. 06/21/24 13:14 Blood - Venous Blood Culture - Preliminary No growth after 48 hours. 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 Will benefit from TAVR At risk for worsening renal function given CKD- if cath is done No indication for renal replacement today but may need it Shall closely follow up Progress Note: Quality Stroke Does the patient have a stroke diagnosis?: No
[2024-06-23 20:44] LABS: Glucose, Whole Blood 161 mg/dL (60-115)
[2024-06-23] MEDS: Amiodarone HCL 200 MG TABLET 400 MG PO (21:32)
[2024-06-23] MEDS: Tamsulosin HCL 0.4 MG CAPSULE PO (21:32)
[2024-06-23] MEDS: Docusate Sodium 100 MG CAPSULE PO (21:33)
[2024-06-24] VITALS (10 sets, daily range): BP systolic 102–153; BP diastolic 55–95; PULSE 97–118; RESP 17–24; TEMP 36.2–36.8; O2SAT 90–97
[2024-06-24] MEDS: Furosemide 100 MG/10 ML VIAL 80 MG IVPUSH ×2 (03:54→11:32)
[2024-06-24 07:30] LABS: Hemoglobin 8.9 g/dl (14.0-18.0); Mean Corpuscular HGB Conc 30.7 g/dl (31.0-36.0); Mean Corpuscular Hemoglobin 28.3 pg (27.0-33.0); Mean Corpuscular Volume 92.4 fL (80.0-98.0); Mean Platelet Volume 11.1 fL (9.4-12.4); Platelet Count 285 X10*3/uL (160-400); Red Blood Count 3.14 X10*6/uL (4.60-5.80); Red Cell Distribution Width 14.7 % (11.0-16.0); White Blood Count 10.5 X10*3/uL (4.8-10.8)
[2024-06-24 07:45] LABS: Anion Gap 19 (12-20); Blood Urea Nitrogen 115 mg/dL (9-16); Calcium 9.1 mg/dL (8.4-10.2); Carbon Dioxide 17 mmol/L (22-29); Chloride 112 mmol/L (96-108); Creatinine Clr Calc Pharmacy 11.7; Estimated Glomerular Filt Rate 12; Glucose Random 157 mg/dL (60-115); Potassium 5.8 mmol/L (3.3-5.1); Sodium 142 mmol/L (135-145)
[2024-06-24 07:46] LABS: INTERNATIONAL NORM RATIO 3.6 (0.9-1.1)
[2024-06-24 08:01] LABS: Glucose, Whole Blood 140 mg/dL (60-115)
[2024-06-24] MEDS: Sodium Zirconium Cyclosilicate 10 GM POWD.PACK PO (08:10)
[2024-06-24] MEDS: ondansetron HCL 4 MG/2 ML VIAL IVPUSH (08:10)
[2024-06-24] MEDS: Doxycycline Hyclate 100 MG in 0.9 % Sodium Chloride 250 ML 166.67 MG IV (08:11)
[2024-06-24] MEDS: 0.9 % Sodium Chloride Flush 3 ML SYRINGE IVFLUSH ×2 (08:11→22:30)
--- NOTE | 2024-06-24 11:01 | HO.PM.IMPN ---
Subjective Subjective Date of Service: 06/24/24 Interval History: Seen and examined this morning Follow-up for CHF, JULIO Awake, alert and oriented x 3, appears tired he understands the gravity of the medical issues that are currently active, he wants to continue medical management for now, but would not want cpr/intubation or dialysis denies chest pain, palpitations Review of Systems Review of Systems: Yes all other systems are reviewed and are negative Constitutional Constitutional: Reports chills and Reports fever(s) Cardiovascular Cardiovascular: Denies chest pain and Denies palpitations Endocrine Endocrine: Denies palpitations Physical Exam Vital Signs: Vital Signs: Last Vital Signs Temp 98 F 06/24/24 07:14 Pulse 98 06/24/24 07:14 Resp 20 06/24/24 07:14 BP 128/95 H 06/24/24 07:14 Pulse Ox 92 06/24/24 07:14 O2 Del Method Nasal Cannula 06/24/24 07:14 O2 Flow Rate 2 06/24/24 07:14 BMI result Body Mass Index 22.2 Const: Other: frail, tired appearing General: alert and awake Nutritional Appearance: average body habitus Orientation/consciousness: patient oriented x3 Resp: Other: Effort & Inspection: able to speak in complete sentences, no cough and tachypneic Cardio: Rate: tachycardic GI: Inspection: No distended Palpation (GI): Soft to palpation and nontender Neuro: Other: grossly nonfocal General: patient oriented x3 Extrem: Other: s/p R AKA; LLE edema Objective Data Active Medications Acetaminophen (Acetaminophen 325 Mg Tablet) 650 mg PO Q6H PRN PRN Reason: Pain, Mild 1-3,fever,headache Albuterol/Ipratropium (Albuterol/Iprat 2.5/0.5mg 3 Ml Ampul.Neb) 3 ml INHALE RQ4H WHILE AWAKE [facility] Last Admin: 06/24/24 08:00 Dose: Not Given Documented By: SOLOMON Non-Admin Reason: Patient Refused Amiodarone HCl (Amiodarone Hcl 200 Mg Tablet) 400 mg PO BID [facility] Last Admin: 06/24/24 08:15 Dose: Not Given Documented By: ALISE Non-Admin Reason: Patient Refused Comments: patient reported he doesn't take this at home Calcium Carbonate (Calcium Carbonate 750 Mg Tab.Chew) 750 mg PO Q4H PRN PRN Reason: Heartburn Ceftriaxone Sodium (Ceftriaxone Sodium 1 Gm Vial) 1 gm IVPUSH Q24H [facility] Last Admin: 06/23/24 11:55 Dose: 1 gm Documented By: ELISA Dextrose (Dextrose 50 % 25 Gm/50 Ml Syringe) 25 gm IVPUSH Q15M PRN; Protocol PRN Reason: per Hypoglycemia Standing Ord. Docusate Sodium (Docusate Sodium 100 Mg Capsule) 100 mg PO BEDTIME [facility] Last Admin: 06/23/24 21:33 Dose: 100 mg Documented By: OG Fluticasone/Vilanterol (Fluticasone/Vilanterol 200/25 Blst.W.Dev) 1 puff INHALE RDAILY [facility] Last Admin: 06/24/24 08:00 Dose: Not Given Documented By: SOLOMON Non-Admin Reason: Patient Refused Glucose (Glucose Gel 15 Gm Gel..Gram.) 15 gm PO Q15M PRN; Protocol PRN Reason: per Hypoglycemia Standing Ord. Doxycycline Hyclate 100 mg/ (Sodium Chloride) 250 mls @ 166.67 mls/hr IV Q12H [facility] Last Infusion: 06/24/24 09:57 Dose: Infused Documented By: ALISE Furosemide 200 mg/ Sodium (Chloride) 100 mls @ 5 mls/hr IVCONT .Q20H [facility] Insulin Human Lispro (Insulin Lispro 100 Unit/Ml 3 Ml Vial) 0 unit SUBCUT QIDACHS [facility]; Protocol Last Admin: 06/24/24 08:08 Dose: Not Given Documented By: ALISE Non-Admin Reason: No Insulin Coverage Magnesium Hydroxide (Milk Of Magnesia 30 Ml Oral.Susp) 30 ml PO DAILY PRN PRN Reason: Constipation Melatonin (Melatonin 3 Mg Tablet) 6 mg PO BEDTIME PRN PRN Reason: Insomnia Ondansetron HCl (Ondansetron Hcl 4 Mg/2 Ml Vial) 4 mg IVPUSH Q8H PRN PRN Reason: Nausea and Vomiting Last Admin: 06/24/24 08:10 Dose: 4 mg Documented By: ALISE Sodium Bicarbonate (Sodium Bicarbonate 650 Mg Tablet) 650 mg PO BID [facility] Last Admin: 06/24/24 08:15 Dose: Not Given Documented By: ALISE Non-Admin Reason: Patient Refused Comments: patient reported he doesn't take this at home Sodium Chloride (0.9 % Sodium Chloride Flush 3 Ml Syringe) 3 ml IVFLUSH QSHIFT [facility] Last Admin: 06/24/24 08:11 Dose: 3 ml Documented By: ALISE Tamsulosin HCl (Tamsulosin Hcl 0.4 Mg Capsule) 0.4 mg PO BEDTIME [facility] Last Admin: 06/23/24 21:32 Dose: 0.4 mg Documented By: OG Labs 06/24/24 07:18 06/24/24 07:18 Labs: Laboratory Results - last 24 hr 06/21/24 06/23/24 06/23/24 15:44 11:19 12:37 MCV MCH MCHC RDW Plt Count MPV Absolute Nucleated RBC Nucleated RBC % (auto) PT INR Anion Gap Estim Creat Clear Calc Estimated GFR POC Glucose Random Glucose Lactic Acid 1.6 Lactic Acid F/U @ 2Hr 2.4 H* Calcium Respiratory Panel Fernández See Note Adenovirus (Rapid PCR) Not Detected B.pert (TEM-PCR) Not Detected B.parapertussis DNA PCR Not Detected C. pneumoniae DNA (PCR) Not Detected Coronavirus OC43 (PCR) Not Detected Coronavirus HKU1 (PCR) Not Detected Coronavirus 229E (PCR) Not Detected Coronavirus NL63 (PCR) Not Detected Human Metapneumovir PCR Not Detected Influenza A (RT-PCR) Not Detected Influenza A (H1) PCR Not Detected Influ A (H1/09) PCR Not Detected Influenza A (H3) PCR Not Detected Influenza B (RT-PCR) Not Detected M. pneumoniae (PCR) Not Detected Parainfluenza 1 (PCR) Not Detected Parainfluenza 2 (PCR) Not Detected Parainfluenza 3 (PCR) Not Detected Parainfluenza 4 (PCR) Not Detected RSV (PCR) Not Detected Entero/Rhino (PCR) Not Detected SARS-CoV-2 RNA (RT-PCR) Not Detected 06/23/24 06/23/24 06/24/24 16:13 20:40 07:18 MCV 92.4 MCH 28.3 MCHC 30.7 L RDW 14.7 Plt Count 285 MPV 11.1 Absolute Nucleated RBC 0.000 Nucleated RBC % (auto) 0.0 PT 42.0 H INR 3.6 H Anion Gap 19 Estim Creat Clear Calc 11.7 Estimated GFR 12 POC Glucose 148 H 161 H Random Glucose 157 H Lactic Acid Lactic Acid F/U @ 2Hr Calcium 9.1 Respiratory Panel Fernández Adenovirus (Rapid PCR) B.pert (TEM-PCR) B.parapertussis DNA PCR C. pneumoniae DNA (PCR) Coronavirus OC43 (PCR) Coronavirus HKU1 (PCR) Coronavirus 229E (PCR) Coronavirus NL63 (PCR) Human Metapneumovir PCR Influenza A (RT-PCR) Influenza A (H1) PCR Influ A () PCR Influenza A (H3) PCR Influenza B (RT-PCR) M. pneumoniae (PCR) Parainfluenza 1 (PCR) Parainfluenza 2 (PCR) Parainfluenza 3 (PCR) Parainfluenza 4 (PCR) RSV (PCR) Entero/Rhino (PCR) SARS-CoV-2 RNA (RT-PCR) 06/24/24 07:20 MCV MCH MCHC RDW Plt Count MPV Absolute Nucleated RBC Nucleated RBC % (auto) PT INR Anion Gap Estim Creat Clear Calc Estimated GFR POC Glucose 140 H Random Glucose Lactic Acid Lactic Acid F/U @ 2Hr Calcium Respiratory Panel Fernández Adenovirus (Rapid PCR) B.pert (TEM-PCR) B.parapertussis DNA PCR C. pneumoniae DNA (PCR) Coronavirus OC43 (PCR) Coronavirus HKU1 (PCR) Coronavirus 229E (PCR) Coronavirus NL63 (PCR) Human Metapneumovir PCR Influenza A (RT-PCR) Influenza A (H1) PCR Influ A () PCR Influenza A (H3) PCR Influenza B (RT-PCR) M. pneumoniae (PCR) Parainfluenza 1 (PCR) Parainfluenza 2 (PCR) Parainfluenza 3 (PCR) Parainfluenza 4 (PCR) RSV (PCR) Entero/Rhino (PCR) SARS-CoV-2 RNA (RT-PCR) Microbiology Microbiology Results: Microbiology 06/21/24 17:02 Urine Culture - Final Urine clean catch - Clean Catch Midstream Enterococcus faecalis 06/21/24 13:27 Blood Culture - Preliminary Blood - Venous No growth after 48 hours. 06/21/24 13:14 Blood Culture - Preliminary Blood - Venous No growth after 48 hours. Assessment and Plan (1) Metabolic acidosis: Status: Acute (2) CHF (congestive heart failure): Status: Acute (3) Elevated WBC count: Status: Acute (4) Pneumonia: Status: Acute (5) Acute hyperkalemia: Status: Acute Plan This is an 88 year old man with history of , paroxysmal atrial fibrillation on Coumadin, diabetes, hypertension, CAD among others who presented with 3 days of shortness of breath found to have admitted with CHF and worsening Aortic stenosis HFpEF due to severe aortic stenosis echo with basal inferior segment akinesis, severe aortic valve stenosis, moderate mitral valve regurgitation, moderate to severe pulmonary hypertension BNP trending up Cardiology following - not a candidate for TAVR at this time, overall worsening renal function and respiratory status poor prognosis will increase to lasix drip and one time dose of metolozone follow strict Is&Os on Farxiga at baseline, currently on hold seen by pulmonology - underlying lung dz not significant factor at this time Severe Aortic stenosis worsening and likely cause of symptoms not a candidate for TAVR Paroxysmal atrial fibrillation INR 3.6, hold Coumadin Metoprolol onhold for acute CHF started on amio - HR controlled at this time JULIO on CKD4 with NAGMA Renal function worsening, SCr up to 4.75 started on sodium bicarb, bicarb up to 17 - hold off on increasing dose due to sodium load in acute chf follow BMP nephro following UTI Urine culture growing VRE sensitive to ampicillin will transition to Rocephin to Zosyn possible sepsis due to pneumonia met sirs criteria with leukocytosis, tachycardia; tachycardia likely due to afib with RVR Repeat chest x-ray showing possible pneumonia ? aspiration RPP negative, procalcitonin 0.77 repeat lactic acid normal, repeat blood cultures pending renal failure due to CHF/severe aortic stenosis and low perfusion state not due to sepsis continue IV abx (changing ceftriaxone/doxy to zosyn as above) would hold off of IVF due to acute on chronic CHF seen by speech - rec NDD3 diet Hyperkalemia due to JULIO Lokelma Follow BMP DM Hba1c 6.3 continue SSI, POCs HTN stable blood pressure hold antihypertensives for now to avoid hypotension BPH flomax DVT prophylaxis - on coumadin at baseline, stop heparin; follow INR code status changed to DNR/DNI as per patient/family wishes HCP form signed with watch caser naming and daughter as HCP. Requires ongoing inpatient stay for management of respiratory status, acute CHF, worsening renal function, metabolic acidosis requiring specialist evaluation Quality Stroke Does the patient have a stroke diagnosis?: No VTE Prior VTE?: No VTE Risk Level:: Medical - moderate - high VTE Device Contraindication: Treatment Not Indicated VTE Drug Contraindication: N/A - Med Ordered
[2024-06-24] MEDS: metOLazone 5 MG TABLET PO (11:32)
[2024-06-24] MEDS: Furosemide 200 MG in 0.9 % Sodium Chloride 80 ML IVCONT (11:34)
[2024-06-24] MEDS: Amiodarone HCL 200 MG TABLET 400 MG PO (11:34)
[2024-06-24] MEDS: Albuterol/Iprat 2.5/0.5MG 3 ML AMPUL.NEB INHALE ×2 (11:34→17:23)
[2024-06-24 11:58] LABS: Glucose, Whole Blood 138 mg/dL (60-115)
--- NOTE | 2024-06-24 12:16 | MHC.SL.SWA ---
Speech Pathologist Impression: Risk of Aspiration, Oropharyngeal Dysphagia Risk of Aspiration Due to: Medically Fragile Dysphasia Diet Status:No Change Liquid Consistency and Strategies for Safe Swallow: Liquid Intake Recommendation: Thin Liquid Intake Strategies: Small Sips Solid Food Consistency: Dietary Recommendations: Chopped/Advanced (NDD3) Additional Modifications to Solid Foods: If using straw, single sip only. Patient requires direct supervision with assistance as needed (including setting up tray, opening items, monitoring and assisting patient as needed) due to generalized weakness. Oral Medication Intake: Whole with Puree Please contact the pharmacy regarding appropriate crushable or liquid drug formulations that are available whenever modified delivery is recommended. Compensatory Strategies and Precautions to be Taken for Safe Swallow: Sitting Upright (90 deg) Small Bites and Sips Alternate Liquids/Solids Rate of Ingestion Change Supervision While Eating and Drinking for Safe Swallow: Total Assistance (1:1) Foods to Avoid: Difficult to chew solids, dry, crunchy foods. Swallowing Recommended Treatments: Compens. Strategy Educat. Recommendation for Speech: Inpatient Speech Therapy Comment: Patient presents with a mild oral pharyngeal dysphagia secondary to partially missing teeth and absent swallow trigger. Patient also has generalized weakness and difficulty with self feeding. Recommend DOWNGRADE diet to Chopped/Advanced (for ease of mastication) continue with thin liquids, pills whole in puree. If patient uses straw, recommend single sips only (no serial sips), which patient demonstrated good control of during this evaluation. PA, RD, RN notified of recommendation by secure text, SENIOR ENGINEERING TEAM LEADER adjusted diet in expanse. SENIOR ENGINEERING TEAM LEADER to follow. Frequency/Duration: Date Range for Service Req: Timeline to reassess: Chemist Organic Clinican/Clinical Fellow: No Supervisory Statement: I have reviewed and agree with the student/clinical fellow's documentation: N/A Speech Language Pathologist: Bell Hester M.A., CCC-SENIOR ENGINEERING TEAM LEADER
--- NOTE | 2024-06-24 12:51 | MHC.CM.PN ---
EMR REVIEWED, PT W/RESPIRATORY, RENAL AND HEART FAILURES, PER HOSPITALIST FAMILY NOT READY FOR PALLIATIVE CARE, PT NOT LIKELY TO DC OVER W/E, CM WILL CONT TO FOLLOW DC NEEDS.
[2024-06-24] MEDS: Piperacillin Sodium/Tazobactam 2.25 GM in 0.9 % Sodium Chloride 50 ML IV ×2 (14:04→20:29)
--- NOTE | 2024-06-24 15:27 | P.PNNP_ITS ---
Subjective Subjective Date of Service: 06/24/24 Interval history: Seen and examined this morning. All recent data reviewed. D/W Hospitalist and Rock Dust Sprayer Physical Exam 2 Vital Signs: Vital Signs: Last Vital Signs Temp 98.1 F 06/24/24 15:05 Pulse 107 H 06/24/24 15:05 Resp 18 06/24/24 15:05 BP 116/56 L 06/24/24 15:05 Pulse Ox 95 06/24/24 15:05 O2 Del Method Nasal Cannula 06/24/24 15:05 O2 Flow Rate 3 06/24/24 15:05 BMI result Body Mass Index 22.2 Const: General: alert Orientation/consciousness: patient oriented x3 Eyes: EOM: EOMs intact bilaterally Resp: Auscultation: diminished lung sounds Cardio: Rate: regular rate Heart sounds: Murmur heart sound present GI: Palpation (GI): Soft to palpation Neuro: General: patient oriented x3 Extrem: Other: R AKA; L LE edema Objective Data Labs 06/24/24 07:18 06/24/24 07:18 Labs: Laboratory Results - last 24 hr 06/23/24 06/23/24 06/24/24 16:13 20:40 07:18 WBC 10.5 RBC 3.14 L Hgb 8.9 L Hct 29.0 L MCV 92.4 MCH 28.3 MCHC 30.7 L RDW 14.7 Plt Count 285 MPV 11.1 Absolute Nucleated RBC 0.000 Nucleated RBC % (auto) 0.0 PT 42.0 H INR 3.6 H Sodium 142 Potassium 5.8 H Chloride 112 H Carbon Dioxide 17 L Anion Gap 19 BUN 115 H Creatinine 4.75 H* Estim Creat Clear Calc 11.7 Estimated GFR 12 POC Glucose 148 H 161 H Random Glucose 157 H Calcium 9.1 06/24/24 06/24/24 07:20 11:34 WBC RBC Hgb Hct MCV MCH MCHC RDW Plt Count MPV Absolute Nucleated RBC Nucleated RBC % (auto) PT INR Sodium Potassium Chloride Carbon Dioxide Anion Gap BUN Creatinine Estim Creat Clear Calc Estimated GFR POC Glucose 140 H 138 H Random Glucose Calcium Microbiology Microbiology Results: Microbiology 06/23/24 11:19 Blood - Venous Blood Culture - Preliminary No growth after 24 hours. 06/23/24 11:06 Blood - Venous Blood Culture - Preliminary No growth after 24 hours. 06/21/24 17:02 Urine clean catch - Clean Catch Midstream Urine Culture - Final Enterococcus faecalis 06/21/24 13:27 Blood - Venous Blood Culture - Preliminary No growth after 48 hours. 06/21/24 13:14 Blood - Venous Blood Culture - Preliminary No growth after 48 hours. 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 Not a candidate for TAVR now Medical management for hyperkalemia & meta acidosis At risk for worsening renal function; Not a candidate for HD Patient does not want dialysis; C/W diuresis/medical management Shall closely follow up Progress Note: Quality Stroke Does the patient have a stroke diagnosis?: No
[2024-06-24 16:44] LABS: Glucose, Whole Blood 124 mg/dL (60-115)
[2024-06-24] MEDS: Morphine Sulfate 2 MG/ML CARTRIDGE 1 MG IVPUSH (17:47)
[2024-06-24] MEDS: Bumetanide 1 MG/4 ML VIAL IVPUSH (17:47)
[2024-06-24 20:30] LABS: Glucose, Whole Blood 136 mg/dL (60-115)
--- NOTE | 2024-06-24 22:20 | PM.PNCARD ---
Subjective Subjective Date of Service: 06/24/24 Interval history: Seen examined at bedside. Continues to be in atrial fibrillation. Was started on amiodarone but it appears he did not agreed to take it. Creatinine has worsened further in his creatinine clearance is 12 at this point. Continues to be significantly short of breath volume overloaded. Physical Exam Vital Signs: Last Vital Signs Temp 97.8 F 06/24/24 19:59 Pulse 113 H 06/24/24 19:59 Resp 24 H 06/24/24 19:59 BP 102/55 L 06/24/24 19:59 Pulse Ox 90 L 06/24/24 19:59 O2 Del Method Nasal Cannula 06/24/24 19:59 O2 Flow Rate 1 06/24/24 19:59 BMI result Body Mass Index 22.2 GENERAL APPEARANCE: Significantly tachypneic. Looks tired. NECK: no carotid bruit, + jugular venous distention. SKIN: no suspicious lesions, warm and dry. HEART: Systolic murmur, tachycardic. LUNGS: Bilateral crackles at bases. ABDOMEN: soft, nontender. EXTREMITIES: Right [id number] amputation. Left lower extremity edema 1+. NEUROLOGIC: No gross deficits, AAO X 3 Objective Labs and Meds 06/24/24 07:18 06/24/24 07:18 Lab results: Laboratory Results - last 24 hr 06/24/24 06/24/24 06/24/24 07:18 07:20 11:34 WBC 10.5 RBC 3.14 L Hgb 8.9 L Hct 29.0 L MCV 92.4 MCH 28.3 MCHC 30.7 L RDW 14.7 Plt Count 285 MPV 11.1 Absolute Nucleated RBC 0.000 Nucleated RBC % (auto) 0.0 PT 42.0 H INR 3.6 H Sodium 142 Potassium 5.8 H Chloride 112 H Carbon Dioxide 17 L Anion Gap 19 BUN 115 H Creatinine 4.75 H* Estim Creat Clear Calc 11.7 Estimated GFR 12 POC Glucose 140 H 138 H Random Glucose 157 H Calcium 9.1 06/24/24 06/24/24 16:33 20:18 WBC RBC Hgb Hct MCV MCH MCHC RDW Plt Count MPV Absolute Nucleated RBC Nucleated RBC % (auto) PT INR Sodium Potassium Chloride Carbon Dioxide Anion Gap BUN Creatinine Estim Creat Clear Calc Estimated GFR POC Glucose 124 H 136 H Random Glucose Calcium Progress Note: A&P Assessment and plan (1) CHF (congestive heart failure): Status: Acute (2) Aortic stenosis: Status: Acute (3) Paroxysmal atrial fibrillation: Status: Acute Plan 88-year-old gentleman with peripheral vascular disease with previous above-knee amputation, severe low-flow low gradient aortic valve stenosis and paroxysmal atrial fibrillation presenting with new onset congestive heart failure. This is on background of aortic stenosis. Echocardiography has shown low-flow low gradient severe and moderate mitral valve regurgitation. Clinical status worsened when he went into AFib with RVR with worsening kidney function and shortness of breath. We discussed about cardioversion but he wanted to think about it. Kidney function has worsened significantly at this point. Amiodarone 400 mg twice a day. He is agreeable to take it. Continue diuretics and would favor starting him on a Lasix drip to see if he diuresis and we can see some improvement in breathing. Overall prognosis is guarded. We will follow along with you. Thank you for allowing me to participate in the care of your patient. Please feel free to contact me if you have any questions. Time Spent With Patient Time: Total time managing care of this patient today ____ minutes. Progress Note: Quality Stroke Does the patient have a stroke diagnosis?: No Procedures Date of Service Date of Service: 06/24/24
[2024-06-25] VITALS (13 sets, daily range): BP systolic 92–122; BP diastolic 52–57; PULSE 48–114; RESP 16–24; TEMP 36.2–36.9; O2SAT 8–100
[2024-06-25] MEDS: Morphine Sulfate 2 MG/ML CARTRIDGE 1 MG IVPUSH ×4 (02:26→16:22)
[2024-06-25] MEDS: Furosemide 200 MG in 0.9 % Sodium Chloride 80 ML IVCONT ×2 (02:50→23:12)
--- NOTE | 2024-06-25 03:39 | PC.NURSE ---
Addendum entered by Chadwick Simmons RN 06/25/24 05:30: Patient appears more comfortable and more alert this morining, oxygen sats 97% on 6L oxymask, turned down to 4L. Titrating for goal of 88-92% Original Note: Patient pale and very tired looking at start of shift. Family at bedside. Patient only answering questions with a yes or no d/t fatigue. Mouth very dry, swabs administered, patient not swallowing. RN did not attempt to administer oral medications d/t lack of swallow and fatigue. 0200 Patient dropped his sats to the low 80's, patient was choking on water he attempted to drink that was on his bedside table. Sat patient upright and turned up oxygen. Patient recovered physically from choking, sats were 85%. Patient reports difficulty breathing and is sweaty. RN administered updraft, administered morphine, and placed on oxymask and had to titrate to 8L. Sats currently 88-92%. Patient has been tachy all night. Cold cloths placed on forehead all night d/t complaints of being hot. Patient appears more comfortable after morphine admin. All needs addressed, call vargas within reach, frequent rounding.
[2024-06-25] MEDS: Piperacillin Sodium/Tazobactam 2.25 GM in 0.9 % Sodium Chloride 50 ML IV ×3 (05:28→23:15)
[2024-06-25 06:50] LABS: INTERNATIONAL NORM RATIO 3.4 (0.9-1.1); Prothrombin Time 39.7 SEC (10.9-12.4)
[2024-06-25 06:58] LABS: Anion Gap 22 (12-20); Calcium 8.8 mg/dL (8.4-10.2); Carbon Dioxide 13 mmol/L (22-29); Chloride 109 mmol/L (96-108); Creatinine Clr Calc Pharmacy 9.5; Estimated Glomerular Filt Rate 9; Glucose Random 154 mg/dL (60-115); Magnesium 2.3 mg/dL (1.6-2.6); Potassium 5.9 mmol/L (3.3-5.1); Sodium 138 mmol/L (135-145)
[2024-06-25 07:14] LABS: Blood Urea Nitrogen 121 mg/dL (9-16)
[2024-06-25 07:34] LABS: Glucose, Whole Blood 137 mg/dL (60-115)
[2024-06-25] MEDS: Albuterol/Iprat 2.5/0.5MG 3 ML AMPUL.NEB INHALE ×4 (07:56→19:16)
[2024-06-25] MEDS: Sodium Bicarbonate 650 MG TABLET PO ×2 (10:18→23:30)
[2024-06-25] MEDS: Amiodarone HCL 200 MG TABLET 400 MG PO ×2 (10:18→23:12)
[2024-06-25] MEDS: 0.9 % Sodium Chloride Flush 3 ML SYRINGE IVFLUSH (10:37)
--- NOTE | 2024-06-25 11:14 | HO.PM.IMPN ---
Subjective Subjective Date of Service: 06/25/24 Interval History: Seen and examined this morning Follow-up for CHF, JULIO Awake, alert and oriented x 3, appears tired and reports feeling weak he understands the gravity of the medical issues that are currently active, he wants to continue medical management for now, but would not want cpr/intubation or dialysis denies chest pain, palpitations Review of Systems Review of Systems: Yes all other systems are reviewed and are negative Constitutional Constitutional: Reports chills and Reports fever(s) Cardiovascular Cardiovascular: Denies chest pain and Denies palpitations Endocrine Endocrine: Denies palpitations Physical Exam Vital Signs: Vital Signs: Last Vital Signs Temp 98.0 F 06/25/24 11:08 Pulse 102 H 06/25/24 11:08 Resp 22 H 06/25/24 11:08 BP 95/53 L 06/25/24 11:08 Pulse Ox 92 06/25/24 11:08 O2 Del Method Oxymask 06/25/24 11:08 O2 Flow Rate 5 06/25/24 11:08 BMI result Body Mass Index 22.2 Appearing in no acute distress, frail appearing lung sounds are clear to auscultation heart regular rate rhythm, clear S1, S2 positive bowel sounds, abdomen is soft, nontender neuro patient is alert x3, no focal deficits Objective Data Active Medications Acetaminophen (Acetaminophen 325 Mg Tablet) 650 mg PO Q6H PRN PRN Reason: Pain, Mild 1-3,fever,headache Albuterol/Ipratropium (Albuterol/Iprat 2.5/0.5mg 3 Ml Ampul.Neb) 3 ml INHALE RQ4H WHILE AWAKE [facility] Last Admin: 06/25/24 07:56 Dose: 3 ml Documented By: CASEY Amiodarone HCl (Amiodarone Hcl 200 Mg Tablet) 400 mg PO BID [facility] Last Admin: 06/25/24 10:18 Dose: 400 mg Documented By: CLARISSA Calcium Carbonate (Calcium Carbonate 750 Mg Tab.Chew) 750 mg PO Q4H PRN PRN Reason: Heartburn Dextrose (Dextrose 50 % 25 Gm/50 Ml Syringe) 25 gm IVPUSH Q15M PRN; Protocol PRN Reason: per Hypoglycemia Standing Ord. Docusate Sodium (Docusate Sodium 100 Mg Capsule) 100 mg PO BEDTIME [facility] Last Admin: 06/24/24 21:50 Dose: Not Given Documented By: ALLYSON Non-Admin Reason: Patient Condition Contraindication Fluticasone/Vilanterol (Fluticasone/Vilanterol 200/25 Blst.W.Dev) 1 puff INHALE RDAILY [facility] Last Admin: 06/25/24 07:57 Dose: Not Given Documented By: CASEY Non-Admin Reason: pt insp effort poor. Glucose (Glucose Gel 15 Gm Gel..Gram.) 15 gm PO Q15M PRN; Protocol PRN Reason: per Hypoglycemia Standing Ord. Furosemide 200 mg/ Sodium (Chloride) 100 mls @ 5 mls/hr IVCONT .Q20H [facility] Last Admin: 06/25/24 02:50 Dose: 10 mg/hr, 5 mls/hr Documented By: ALLYSON Piperacillin Sod/Tazobactam (Sod 2.25 gm/ Sodium Chloride) 50 mls @ 100 mls/hr IV Q8H [facility] Last Infusion: 06/25/24 06:10 Dose: Infused Documented By: ALLYSON Insulin Human Lispro (Insulin Lispro 100 Unit/Ml 3 Ml Vial) 0 unit SUBCUT QIDACHS [facility]; Protocol Last Admin: 06/25/24 07:36 Dose: Not Given Documented By: CLARISSA Non-Admin Reason: No Insulin Coverage Magnesium Hydroxide (Milk Of Magnesia 30 Ml Oral.Susp) 30 ml PO DAILY PRN PRN Reason: Constipation Melatonin (Melatonin 3 Mg Tablet) 6 mg PO BEDTIME PRN PRN Reason: Insomnia Morphine Sulfate (Morphine Sulfate 2 Mg/Ml Cartridge) 1 mg IVPUSH Q4H PRN; Protocol PRN Reason: sob Last Admin: 06/25/24 10:19 Dose: 1 mg Documented By: CLARISSA Ondansetron HCl (Ondansetron Hcl 4 Mg/2 Ml Vial) 4 mg IVPUSH Q8H PRN PRN Reason: Nausea and Vomiting Last Admin: 06/24/24 08:10 Dose: 4 mg Documented By: ALISE Sodium Bicarbonate (Sodium Bicarbonate 650 Mg Tablet) 650 mg PO BID [facility] Last Admin: 06/25/24 10:18 Dose: 650 mg Documented By: CLARISSA Sodium Chloride (0.9 % Sodium Chloride Flush 3 Ml Syringe) 3 ml IVFLUSH QSHIFT [facility] Last Admin: 06/25/24 10:37 Dose: 3 ml Documented By: CLARISSA Tamsulosin HCl (Tamsulosin Hcl 0.4 Mg Capsule) 0.4 mg PO BEDTIME [facility] Last Admin: 06/24/24 21:50 Dose: Not Given Documented By: ALLYSON Non-Admin Reason: Patient Condition Contraindication Labs 06/24/24 07:18 06/25/24 06:11 Labs: Laboratory Results - last 24 hr 06/24/24 06/24/24 06/24/24 11:34 16:33 20:18 Hold Purple Top PT INR Anion Gap Estim Creat Clear Calc Estimated GFR POC Glucose 138 H 124 H 136 H Random Glucose Calcium Magnesium 06/25/24 06/25/24 06:11 07:16 Hold Purple Top SEE NOTE PT 39.7 H INR 3.4 H Anion Gap 22 H Estim Creat Clear Calc 9.5 Estimated GFR 9 POC Glucose 137 H Random Glucose 154 H Calcium 8.8 Magnesium 2.3 Microbiology Microbiology Results: Microbiology 06/23/24 11:19 Blood Culture - Preliminary Blood - Venous No growth after 24 hours. 06/23/24 11:06 Blood Culture - Preliminary Blood - Venous No growth after 24 hours. 06/21/24 17:02 Urine Culture - Final Urine clean catch - Clean Catch Midstream Enterococcus faecalis Assessment and Plan (1) Metabolic acidosis: Status: Acute (2) CHF (congestive heart failure): Status: Acute (3) Elevated WBC count: Status: Acute (4) Pneumonia: Status: Acute (5) Acute hyperkalemia: Status: Acute Plan 88 year old man with history of , paroxysmal atrial fibrillation on Coumadin, diabetes, hypertension, CAD among others who presented with 3 days of shortness of breath, admitted with CHF and worsening Aortic stenosis HFpEF due to severe aortic stenosis echo with basal inferior segment akinesis, severe aortic valve stenosis, moderate mitral valve regurgitation, moderate to severe pulmonary hypertension BNP trending up Cardiology following - not a candidate for TAVR at this time, overall worsening renal function and respiratory status poor prognosis increased lasix drip s/p one time dose of metolozone follow strict Is&Os on at baseline, currently on hold seen by pulmonology - underlying lung dz not significant factor at this time Severe Aortic stenosis worsening and likely cause of symptoms not a candidate for TAVR Paroxysmal atrial fibrillation INR 3.4, hold Coumadin Metoprolol on hold for acute CHF started on amio - HR controlled at this time JULIO on CKD4 with NAGMA Renal function worsening, SCr up to 5.83 started on sodium bicarb, bicarb 13 - hold off on increasing dose due to sodium load in acute chf follow BMP nephro following UTI Urine culture growing VRE sensitive to ampicillin transitioned Rocephin to Zosyn possible sepsis due to pneumonia met sirs criteria with leukocytosis, tachycardia; tachycardia likely due to afib with RVR Repeat chest x-ray showing possible pneumonia ? aspiration RPP negative, procalcitonin 0.77 repeat lactic acid normal, repeat blood cultures pending renal failure due to CHF/severe aortic stenosis and low perfusion state not due to sepsis continue IV abx would hold off of IVF due to acute on chronic CHF seen by speech - rec NDD3 diet Hyperkalemia due to JULIO Lokelma Follow BMP DM Hba1c 6.3 continue SSI, POCs HTN stable blood pressure hold antihypertensives for now to avoid hypotension BPH flomax DVT prophylaxis - on coumadin at baseline, stop heparin; follow INR code status changed to DNR/DNI as per patient/family wishes HCP form signed with director of casework naming and daughter as HCP. Requires ongoing inpatient stay for management of respiratory status, acute CHF, worsening renal function, metabolic acidosis requiring specialist evaluation Quality Stroke Does the patient have a stroke diagnosis?: No VTE Prior VTE?: No VTE Risk Level:: Medical - moderate - high VTE Device Contraindication: Treatment Not Indicated VTE Drug Contraindication: N/A - Med Ordered
[2024-06-25 11:26] LABS: Glucose, Whole Blood 131 mg/dL (60-115)
--- NOTE | 2024-06-25 11:57 | PM.PNCARD ---
Subjective Subjective Date of Service: 06/25/24 Interval history: Seen and examined at bedside. SCr 5.83. Physical Exam Vital Signs: Last Vital Signs Temp 98.0 F 06/25/24 11:08 Pulse 102 H 06/25/24 11:30 Resp 24 H 06/25/24 11:30 BP 95/53 L 06/25/24 11:08 Pulse Ox 92 06/25/24 11:08 O2 Del Method Oxymask 06/25/24 11:08 O2 Flow Rate 5 06/25/24 11:08 BMI result Body Mass Index 22.2 GENERAL APPEARANCE: Significantly tachypneic. Looks tired. NECK: no carotid bruit, ++ jugular venous distention. SKIN: no suspicious lesions, warm and dry. HEART: Systolic murmur, tachycardic. LUNGS: Bilateral crackles at bases. ABDOMEN: soft, nontender. EXTREMITIES: Right [id number] amputation. Left lower extremity edema 1+. NEUROLOGIC: No gross deficits, AAO X 3 Objective Labs and Meds 06/24/24 07:18 06/25/24 06:11 Lab results: Laboratory Results - last 24 hr 06/24/24 06/24/24 06/24/24 11:34 16:33 20:18 Hold Purple Top PT INR Sodium Potassium Chloride Carbon Dioxide Anion Gap BUN Creatinine Estim Creat Clear Calc Estimated GFR POC Glucose 138 H 124 H 136 H Random Glucose Calcium Magnesium 06/25/24 06/25/24 06/25/24 06:11 07:16 11:07 Hold Purple Top SEE NOTE PT 39.7 H INR 3.4 H Sodium 138 Potassium 5.9 H Chloride 109 H Carbon Dioxide 13 L Anion Gap 22 H BUN 121 H Creatinine 5.83 H* Estim Creat Clear Calc 9.5 Estimated GFR 9 POC Glucose 137 H 131 H Random Glucose 154 H Calcium 8.8 Magnesium 2.3 Progress Note: A&P Assessment and plan (1) CHF (congestive heart failure): Status: Acute (2) Aortic stenosis: Status: Acute (3) Paroxysmal atrial fibrillation: Status: Acute Plan 88-year-old gentleman with peripheral vascular disease with previous above-knee amputation, severe low-flow low gradient aortic valve stenosis and paroxysmal atrial fibrillation presenting with new onset congestive heart failure. This is on background of aortic stenosis. Echocardiography has shown low-flow low gradient severe and moderate mitral valve regurgitation. Clinical status worsened when he went into AFib with RVR with worsening kidney function and shortness of breath. We discussed about cardioversion but he wanted to think about it. Kidney function has worsened significantly and creatinine is 5.83 with BUN of 121. Overall prognosis is extremely poor. The family is aware of this but patient still wishes to continue medications. We will continue treatment but prognosis is extremely guarded. Thank you for allowing me to participate in the care of your patient. Please feel free to contact me if you have any questions. Time Spent With Patient Time: Total time managing care of this patient today ____ minutes. Progress Note: Quality Stroke Does the patient have a stroke diagnosis?: No Procedures Date of Service Date of Service: 06/25/24
[2024-06-25 16:38] LABS: Glucose, Whole Blood 140 mg/dL (60-115)
[2024-06-25 22:58] LABS: Glucose, Whole Blood 122 mg/dL (60-115)
[2024-06-25] MEDS: Docusate Sodium 100 MG CAPSULE PO (23:12)
[2024-06-25] MEDS: Tamsulosin HCL 0.4 MG CAPSULE PO (23:12)
[2024-06-26 03:21] VITALS: BP 92/55; PULSE 98; RESP 20; TEMP 36; O2SAT 96
[2024-06-26] MEDS: 0.9 % Sodium Chloride Flush 3 ML SYRINGE IVFLUSH ×3 (03:25→19:56)
[2024-06-26] MEDS: Piperacillin Sodium/Tazobactam 2.25 GM in 0.9 % Sodium Chloride 50 ML IV (04:30)
[2024-06-26 07:37] VITALS: BP 70/30; PULSE 96; RESP 18; TEMP 36.1; O2SAT 98
--- NOTE | 2024-06-26 08:06 | HO.PM.IMPN ---
Subjective Subjective Date of Service: 06/26/24 Interval History: Seen and examined this morning Follow-up for CHF, JULIO Awake, lethargic he understands the gravity of the medical issues that are currently active and would like to cease treatment Review of Systems Review of Systems: Yes all other systems are reviewed and are negative Constitutional Constitutional: Reports chills and Reports fever(s) Cardiovascular Cardiovascular: Denies chest pain and Denies palpitations Endocrine Endocrine: Denies palpitations Physical Exam Vital Signs: Vital Signs: Last Vital Signs Temp 97.0 F 06/26/24 07:37 Pulse 96 06/26/24 07:37 Resp 18 06/26/24 07:37 BP 70/30 L 06/26/24 07:37 Pulse Ox 98 06/26/24 07:37 O2 Del Method Nasal Cannula, Hu midified O2 06/26/24 07:37 O2 Flow Rate 7 06/26/24 07:37 BMI result Body Mass Index 22.2 Appearing in no acute distress, lethargic Objective Data Active Medications Acetaminophen (Acetaminophen 325 Mg Tablet) 650 mg PO Q6H PRN PRN Reason: Pain, Mild 1-3,fever,headache Albuterol/Ipratropium (Albuterol/Iprat 2.5/0.5mg 3 Ml Ampul.Neb) 3 ml INHALE RQ4H WHILE AWAKE [facility] Last Admin: 06/26/24 07:56 Dose: Not Given Documented By: CASEY Non-Admin Reason: med to be changed to prn per SERVER. Amiodarone HCl (Amiodarone Hcl 200 Mg Tablet) 400 mg PO BID [facility] Last Admin: 06/25/24 23:12 Dose: 400 mg Documented By: MARCELINA Calcium Carbonate (Calcium Carbonate 750 Mg Tab.Chew) 750 mg PO Q4H PRN PRN Reason: Heartburn Dextrose (Dextrose 50 % 25 Gm/50 Ml Syringe) 25 gm IVPUSH Q15M PRN; Protocol PRN Reason: per Hypoglycemia Standing Ord. Docusate Sodium (Docusate Sodium 100 Mg Capsule) 100 mg PO BEDTIME [facility] Last Admin: 06/25/24 23:12 Dose: 100 mg Documented By: MARCELINA Fluticasone/Vilanterol (Fluticasone/Vilanterol 200/25 Blst.W.Dev) 1 puff INHALE RDAILY [facility] Last Admin: 06/26/24 07:57 Dose: Not Given Documented By: CASEY Non-Admin Reason: Mdi to be d/cd per SERVER Glucose (Glucose Gel 15 Gm Gel..Gram.) 15 gm PO Q15M PRN; Protocol PRN Reason: per Hypoglycemia Standing Ord. Furosemide 200 mg/ Sodium (Chloride) 100 mls @ 5 mls/hr IVCONT .Q20H [facility] Last Admin: 06/25/24 23:12 Dose: 10 mg/hr, 5 mls/hr Documented By: MARCELINA Piperacillin Sod/Tazobactam (Sod 2.25 gm/ Sodium Chloride) 50 mls @ 100 mls/hr IV Q8H [facility] Last Infusion: 06/26/24 05:57 Dose: Infused Documented By: ALLYSON Insulin Human Lispro (Insulin Lispro 100 Unit/Ml 3 Ml Vial) 0 unit SUBCUT QIDACHS [facility]; Protocol Last Admin: 06/25/24 23:15 Dose: Not Given Documented By: MARCELINA Non-Admin Reason: No Insulin Coverage Lorazepam (Lorazepam 2 Mg/Ml Vial) 1 mg IVPUSH Q4H PRN PRN Reason: anxiety/restlessness Magnesium Hydroxide (Milk Of Magnesia 30 Ml Oral.Susp) 30 ml PO DAILY PRN PRN Reason: Constipation Melatonin (Melatonin 3 Mg Tablet) 6 mg PO BEDTIME PRN PRN Reason: Insomnia Morphine Sulfate (Morphine Sulfate 2 Mg/Ml Cartridge) 1 mg IVPUSH Q3H PRN; Protocol PRN Reason: sob Last Admin: 06/25/24 16:22 Dose: 1 mg Documented By: ELISA Ondansetron HCl (Ondansetron Hcl 4 Mg/2 Ml Vial) 4 mg IVPUSH Q8H PRN PRN Reason: Nausea and Vomiting Last Admin: 06/24/24 08:10 Dose: 4 mg Documented By: ALISE Sodium Bicarbonate (Sodium Bicarbonate 650 Mg Tablet) 650 mg PO BID [facility] Last Admin: 06/25/24 23:30 Dose: 650 mg Documented By: MARCELINA Sodium Chloride (0.9 % Sodium Chloride Flush 3 Ml Syringe) 3 ml IVFLUSH QSHIFT [facility] Last Admin: 06/26/24 03:25 Dose: 3 ml Documented By: ALLYSON Tamsulosin HCl (Tamsulosin Hcl 0.4 Mg Capsule) 0.4 mg PO BEDTIME [facility] Last Admin: 06/25/24 23:12 Dose: 0.4 mg Documented By: MARCELINA Labs 06/24/24 07:18 06/25/24 06:11 Labs: Laboratory Results - last 24 hr 06/25/24 06/25/24 06/25/24 11:07 16:33 22:54 POC Glucose 131 H 140 H 122 H Microbiology Microbiology Results: Microbiology 06/23/24 11:19 Blood Culture - Preliminary Blood - Venous No growth after 48 hours. 06/23/24 11:06 Blood Culture - Preliminary Blood - Venous No growth after 48 hours. Assessment and Plan (1) Metabolic acidosis: Status: Acute (2) CHF (congestive heart failure): Status: Acute (3) Elevated WBC count: Status: Acute (4) Pneumonia: Status: Acute (5) Acute hyperkalemia: Status: Acute Plan 88 year old man with history of , paroxysmal atrial fibrillation on Coumadin, diabetes, hypertension, CAD among others who presented with 3 days of shortness of breath, admitted with CHF and worsening Aortic stenosis Comfort measures only Morphine, lorazepam, scopalamine, pr tylenol for fever prn no lab draws or vital signs continue oxygen for comfort and pineda catheter HFpEF due to severe aortic stenosis echo with basal inferior segment akinesis, severe aortic valve stenosis, moderate mitral valve regurgitation, moderate to severe pulmonary hypertension BNP trending up Cardiology following - not a candidate for TAVR at this time, overall worsening renal function and respiratory status poor prognosis s/p lasix drip s/p one time dose of metolozone Is&Os on [facility] at baseline, currently on hold seen by pulmonology - underlying lung dz not significant factor at this time Severe Aortic stenosis worsening and likely cause of symptoms not a candidate for TAVR Paroxysmal atrial fibrillation Metoprolol on hold for acute CHF s/p amio - HR controlled at this time s/p warfarin JULIO on CKD4 with NAGMA Renal function worsening, SCr up to 5.83 started on sodium bicarb, bicarb 13 - hold off on increasing dose due to sodium load in acute chf follow BMP nephro following UTI Urine culture growing VRE sensitive to ampicillin transitioned Rocephin to Zosyn sepsis due to pneumonia met sirs criteria with leukocytosis, tachycardia; tachycardia likely due to afib with RVR Repeat chest x-ray showing possible pneumonia ? aspiration RPP negative, procalcitonin 0.77 repeat lactic acid normal, repeat blood cultures pending renal failure due to CHF/severe aortic stenosis and low perfusion state not due to sepsis s/p V abx hold off of IVF due to acute on chronic CHF seen by speech - rec NDD3 diet Hyperkalemia due to JULIO Lokelma Follow BMP DM Hba1c 6.3 s/p SSI, POCs HTN stable blood pressure hold antihypertensives for now to avoid hypotension BPH flomax DVT prophylaxis N/A code status changed to SEARCH ENGINE OPTIMIZATION SPECIALIST as per patient/family wishes HCP form signed with upper caser naming and daughter as HCP. Quality Stroke Does the patient have a stroke diagnosis?: No VTE Prior VTE?: No VTE Risk Level:: Medical - moderate - high VTE Device Contraindication: Treatment Not Indicated VTE Drug Contraindication: N/A - Med Ordered
[2024-06-26] MEDS: Morphine Sulfate 2 MG/ML CARTRIDGE 1 MG IVPUSH ×6 (08:53→23:11)
[2024-06-26] MEDS: Scopolamine 1.5 MG PATCH.TD.3 EAR-BEHIND (08:53)
[2024-06-26 10:52] VITALS: RESP 20
[2024-06-26 16:00] VITALS: RESP 24
[2024-06-26 20:00] VITALS: RESP 18
[2024-06-26] MEDS: LORazepam 2 MG/ML VIAL 1 MG IVPUSH (23:14)
--- NOTE | 2024-06-27 04:19 | PM.EVENT ---
Event Note Date of Service: 06/27/24 Event Note: note: Around 04:10 on 06/27/2024 RN mentioned that patient appears to have passed. I went and examined the patient, patient not responding, no corneal reflex, pupils are fixed and dilated. Patient pronounced at 04:15AM on 06/27/2024. Patient's family was notified. Time Spent With Patient Time: Total time managing care of this patient today ____ minutes.
--- NOTE | 2024-06-27 04:21 | P.DN_ITS ---
Discharge Sum: Prov Provider Primary care physician: Flakita Stewart MD Consults: 06/21/24 16:06 Consult to Cardiology Routine Consulting Provider: [facility] Reason for consultation: Aortic valve stenosis, CHF 06/21/24 16:38 Consult to Nephrology Routine Consulting Provider: [facility] Reason for consultation: julio on ckd 06/23/24 09:22 Consult to Pulmonology Routine Consulting Provider: [facility] Reason for consultation: respiratory failure, sob, copd Has provider been notified: No Pronouncing clinician: Ollie Chahal Discharge Sum: Diag Contributing Factors (1) Metabolic acidosis: (2) CHF (congestive heart failure): (3) Elevated WBC count: (4) Pneumonia: (5) Acute hyperkalemia: Discharge Sum: Summary Date and Time Date of admission: 06/21/24 16:06 Date of : 06/27/24 Time of : 04:15 Summary Details: 88 year old man with history of , paroxysmal atrial fibrillation on Coumadin, diabetes, hypertension, CAD among others who presented with 3 days of shortness of breath, admitted with CHF and worsening Aortic stenosis HFpEF due to severe aortic stenosis echo with basal inferior segment akinesis, severe aortic valve stenosis, moderate mitral valve regurgitation, moderate to severe pulmonary hypertension BNP trending up Cardiology following - not a candidate for TAVR at this time, overall worsening renal function and respiratory status poor prognosis s/p lasix drip s/p one time dose of metolozone Is&Os on Farxiga at baseline, currently on hold seen by pulmonology - underlying lung dz not significant factor at this time Severe Aortic stenosis worsening and likely cause of symptoms not a candidate for TAVR Paroxysmal atrial fibrillation Metoprolol on hold for acute CHF s/p amio - HR controlled at this time s/p warfarin JULIO on CKD4 with NAGMA Renal function worsening, SCr up to 5.83 started on sodium bicarb, bicarb 13 - hold off on increasing dose due to sodium load in acute chf follow BMP seen by nephrology UTI Urine culture growing VRE sensitive to ampicillin transitioned Rocephin to Zosyn sepsis due to pneumonia met sirs criteria with leukocytosis, tachycardia; tachycardia likely due to afib with RVR Repeat chest x-ray showing possible pneumonia ? aspiration RPP negative, procalcitonin 0.77 repeat lactic acid normal, repeat blood cultures pending renal failure due to CHF/severe aortic stenosis and low perfusion state not due to sepsis s/p V abx hold off of IVF due to acute on chronic CHF seen by speech - rec NDD3 diet code status changed to MANAGER INTERFACE as per patient/family wishes HCP form signed with disease case manager rn naming and daughter as HCP. 06/26/24: Comfort measures only Morphine, lorazepam, scopalamine, pr tylenol for fever prn no lab draws or vital signs continue oxygen for comfort and pineda catheter Around 04:10 on 06/27/2024 RN mentioned that patient appears to have passed. I went and examined the patient, patient not responding, no corneal reflex, pupils are fixed and dilated. Patient pronounced at 04:15AM on 06/27/2024. Patient's family was notified. Additional Data Attending physician: An Dubois NP
--- NOTE | 2024-06-27 06:57 | PM.DDS ---
Discharge Sum: Prov Provider Primary care physician: Flakita Stewart MD Consults: 06/21/24 16:06 Consult to Cardiology Routine Consulting Provider: [facility] [place] [facility] Reason for consultation: Aortic valve stenosis, CHF 06/21/24 16:38 Consult to Nephrology Routine Consulting Provider: [facility] [place] [facility] Reason for consultation: julio on ckd 06/23/24 09:22 Consult to Pulmonology Routine Consulting Provider: [facility] [place] [facility] Reason for consultation: respiratory failure, sob, copd Has provider been notified: No Discharge Sum: Diag Contributing Factors (1) Metabolic acidosis: (2) CHF (congestive heart failure): (3) Elevated WBC count: (4) Pneumonia: (5) Acute hyperkalemia: Discharge Sum: Summary Date and Time Date of admission: 06/21/24 16:06 Summary Details: 88-year-old man with worsening shortness of breath. According to the patient he reports that this has been ongoing for many months now as he has a history of severe aortic stenosis. According to his yesterday he told him that he felt like an elephant was standing on his chest. Today she decided to bring him in as he was more short of breath and unable to ambulate. He denied recent illness, recent travel, sick contacts, nausea, vomiting, diarrhea. He reported that the pressure on his chest is weight-bearing with no other associated symptoms. His BNP was noted to be elevated at 3752, initial troponin 160.7 with repeat of 149.5, initial lactic acid 2.6, potassium 5.9, creatinine 2.89,white blood cell count of 16.2.. Chest x-ray negative for consolidation, no obvious infection. In the ER patient was given a dose of Solu-Medrol, Rocephin, albuterol, calcium gluconate, Lokelma, Lasix, 250 mL of IV fluids. Plan will be to admit patient for further management and treatment of acute heart failure with history of aortic stenosis. No from thread puller Around 04:10 on 06/27/2024 RN mentioned that patient appears to have passed. I went and examined the patient, patient not responding, no corneal reflex, pupils are fixed and dilated. Patient pronounced at 04:15AM on 06/27/2024. Patient's family was notified . Problems during hospitalization: HFpEF due to severe aortic stenosis echo with basal inferior segment akinesis, severe aortic valve stenosis, moderate mitral valve regurgitation, moderate to severe pulmonary hypertension BNP trending up Cardiology following - not a candidate for TAVR at this time, overall worsening renal function and respiratory status poor prognosis s/p lasix drip s/p one time dose of metolozone Is&Os on Farxiga at baseline, currently on hold seen by pulmonology - underlying lung dz not significant factor at this time Severe Aortic stenosis worsening and likely cause of symptoms not a candidate for TAVR Paroxysmal atrial fibrillation Metoprolol on hold for acute CHF s/p amio - HR controlled at this time s/p warfarin JULIO on CKD4 with NAGMA Renal function worsening, SCr up to 5.83 started on sodium bicarb, bicarb 13 - hold off on increasing dose due to sodium load in acute chf follow BMP nephro following UTI Urine culture growing VRE sensitive to ampicillin transitioned Rocephin to Zosyn sepsis due to pneumonia met sirs criteria with leukocytosis, tachycardia; tachycardia likely due to afib with RVR Repeat chest x-ray showing possible pneumonia ? aspiration RPP negative, procalcitonin 0.77 repeat lactic acid normal, repeat blood cultures pending renal failure due to CHF/severe aortic stenosis and low perfusion state not due to sepsis s/p V abx hold off of IVF due to acute on chronic CHF seen by speech - rec NDD3 diet Hyperkalemia due to JULIO Lokelma Follow BMP DM Hba1c 6.3 s/p SSI, POCs HTN stable blood pressure hold antihypertensives for now to avoid hypotension BPH flomax Additional Data Attending physician: An Dubois NP
--- NOTE | 2024-06-28 15:57 | P.CDIM_ITS ---
PROVIDER RESPONSE TEXT: To clarify, the appropriate diagnosis supported by the clinical indicators: Sepsis due to pneumonia was present on admission QUERY TEXT: PHYSICIAN'S DOCUMENTATION REQUEST Date of Query: 06/27/2024 08:40 AM EDT Patient Name: Florentino Bean Admit Date: 06/21/2024 Dear An Dubois PYTHON ENGINEER, A review of the medical record indicates additional documentation may be needed. Please review below and update the documentation accordingly. Clinical Indicators: ED 06/21/24 - No fever n/v/d, COPD, JULIO CHF H&P 06/21/24 - No obvious infectious source. LA 2.6 WBC 16.2 Temp 97.7 Progress note dated 06/23/24 - SIRS criteria with leukocytosis and tachycardia. Repeat chest xray showed possible pneumonia. Progress note dated 06/24/24 - Reports chills and fever. Possible Sepsis due to pneumonia. Chest X-ray 06/21/24 - No active pulmonary disease Chest X-ray 06/23/24 - Increased patchy opacities in the right lower lung suspicious for early pneumon ia. Code status changed to [employer]. Please clarify based on the above if: Sepsis due to pneumonia was present on admission Sepsis due to pneumonia was not present on admission Other specified Other (explain) Clinically unable to determine (explain) Thank you, Elizabeth Bernal, CCS, CDIS Use of terms such as suspected, likely, concern for, or probable (associated with a specific diagnosi s that is being evaluated, monitored, or treated as if it exists) are acceptable and can be coded in the inpatient se tting, when documented at the time of discharge. Please use your independent medical judgment in providing your response. THIS QUERY IS PART OF THE PERMANENT MEDICAL RECORD
== END 2024-06-27 04:10 | disposition expired | DRG 871 ==
LOC: HO.ED 15:50 → HO.EDOVER 16:15 → HO.IMC 06-22 07:11
PROVIDERS: Physician Assistant Medical; Admitting Provider Nurse Practitioner Acute Care; Emergency Provider Emergency Medicine; PCP Internal Medicine; Visit Provider Nurse Practitioner Acute Care
DX: A41.9 Sepsis, unspecified organism (principal); I50.33 Acute on chronic diastolic (congestive) heart failure; J18.9 Pneumonia, unspecified organism; I13.0 Hypertensive heart and chronic kidney disease with heart failure and stage 1 through stage 4 chronic kidney disease, or unspecified chronic kidney disease; N18.4 Chronic kidney disease, stage 4 (severe); J44.0 Chronic obstructive pulmonary disease with (acute) lower respiratory infection; N17.9 Acute kidney failure, unspecified; E87.21 Acute metabolic acidosis; N39.0 Urinary tract infection, site not specified; Z16.21 Resistance to vancomycin; I08.0 Rheumatic disorders of both mitral and aortic valves; N40.0 Benign prostatic hyperplasia without lower urinary tract symptoms; E11.51 Type 2 diabetes mellitus with diabetic peripheral angiopathy without gangrene; I27.20 Pulmonary hypertension, unspecified; E11.22 Type 2 diabetes mellitus with diabetic chronic kidney disease; Z66 Do not resuscitate; E87.5 Hyperkalemia; I48.0 Paroxysmal atrial fibrillation; B95.2 Enterococcus as the cause of diseases classified elsewhere; Z51.5 Encounter for palliative care; I25.10 Atherosclerotic heart disease of native coronary artery without angina pectoris; Z20.822 Contact with and (suspected) exposure to COVID-19; Z87.891 Personal history of nicotine dependence; Z89.611 Acquired absence of right leg above knee; Z79.84 Long term (current) use of oral hypoglycemic drugs; Z79.01 Long term (current) use of anticoagulants; Z79.51 Long term (current) use of inhaled steroids; Z79.899 Other long term (current) drug therapy
CPT/HCPCS: 0241U; 36415; 71045; 80048; 80053; 80076; 81001; 82803; 82947; 83036; 83605; 83690; 83735; 83880; 84145; 84484; 85025; 85027; 85610; 87040; 87086; 87088; 87186; 87633; 92526; 92610; 93005; 93306; 94640; 99212; 99285; J0613; J0696; J1644; J1939; J1940; J2060; J2270; J2405; J2543; J2919; Q9957

== ENCOUNTER → 2024-06-21 12:47 | Outpatient (BNV) | payer OTHER, MEDICARE, SELFPAY | PROVIDERS: Emergency Provider Emergency Medicine; PCP Internal Medicine; Visit Provider Internal Medicine Cardiovascular Disease | DX: R06.02 Shortness of breath (principal); I44.0 Atrioventricular block, first degree; R94.31 Abnormal electrocardiogram [ECG] [EKG] | CPT/HCPCS: 93010 ==

== ENCOUNTER → 2024-06-21 12:54 | Outpatient (BNV) | payer OTHER, MEDICARE, SELFPAY | PROVIDERS: Emergency Provider Emergency Medicine; PCP Internal Medicine; Visit Provider Radiology Diagnostic Radiology | DX: R05.9 Cough, unspecified (principal); R06.00 Dyspnea, unspecified | CPT/HCPCS: 71045 ==

== ENCOUNTER 2024-06-21 16:06 | Outpatient (BNV) | payer MEDICARE, OTHER, SELFPAY | END 2024-06-23 08:45 | PROVIDERS: Admitting Provider Nurse Practitioner Acute Care; Emergency Provider Emergency Medicine; PCP Internal Medicine; Visit Provider Radiology Diagnostic Radiology | DX: R91.8 Other nonspecific abnormal finding of lung field (principal) | CPT/HCPCS: 71045 ==

== ENCOUNTER 2024-06-21 16:06 | Outpatient (BNV) | payer MEDICARE, OTHER, SELFPAY | END 2024-06-22 07:00 | PROVIDERS: Admitting Provider Nurse Practitioner Acute Care; Emergency Provider Emergency Medicine; PCP Internal Medicine; Visit Provider Internal Medicine Cardiovascular Disease | DX: I35.0 Nonrheumatic aortic (valve) stenosis (principal); I35.8 Other nonrheumatic aortic valve disorders; I51.7 Cardiomegaly; I34.0 Nonrheumatic mitral (valve) insufficiency | CPT/HCPCS: 93306 ==

== ENCOUNTER 2024-06-21 16:06 | Outpatient (BNV) | payer MEDICARE, OTHER, SELFPAY | END 2024-06-23 14:56 | PROVIDERS: Admitting Provider Nurse Practitioner Acute Care; Emergency Provider Emergency Medicine; PCP Internal Medicine; Visit Provider Internal Medicine Cardiovascular Disease | DX: I48.91 Unspecified atrial fibrillation (principal); I45.9 Conduction disorder, unspecified | CPT/HCPCS: 93010 ==

== ENCOUNTER → 2024-06-21 16:06 | Outpatient (BNV) | payer MEDICARE, OTHER, SELFPAY | PROVIDERS: Admitting Provider Nurse Practitioner Acute Care; Emergency Provider Emergency Medicine; PCP Internal Medicine; Visit Provider Internal Medicine Cardiovascular Disease | DX: I50.9 Heart failure, unspecified (principal); I35.0 Nonrheumatic aortic (valve) stenosis | CPT/HCPCS: 99223 ==

== ENCOUNTER → 2024-06-21 16:06 | Outpatient (BNV) | payer MEDICARE, OTHER, SELFPAY | PROVIDERS: Admitting Provider Nurse Practitioner Acute Care; Emergency Provider Emergency Medicine; PCP Internal Medicine; Visit Provider Internal Medicine Pulmonary Disease | DX: I35.0 Nonrheumatic aortic (valve) stenosis (principal); I50.9 Heart failure, unspecified; N17.9 Acute kidney failure, unspecified; N18.30 Chronic kidney disease, stage 3 unspecified; J43.9 Emphysema, unspecified | CPT/HCPCS: 99223 ==

== ENCOUNTER → 2024-06-21 16:06 | Outpatient (BNV) | payer MEDICARE, OTHER, SELFPAY | PROVIDERS: Admitting Provider Nurse Practitioner Acute Care; Emergency Provider Emergency Medicine; PCP Internal Medicine; Visit Provider Internal Medicine Nephrology | DX: N17.9 Acute kidney failure, unspecified (principal); N18.9 Chronic kidney disease, unspecified | CPT/HCPCS: 99223; 99232 ==

== ENCOUNTER → 2024-06-21 16:06 | Outpatient (BNV) | payer MEDICARE, OTHER, SELFPAY | PROVIDERS: Admitting Provider Nurse Practitioner Acute Care; Emergency Provider Emergency Medicine; PCP Internal Medicine; Visit Provider Nurse Practitioner Acute Care | DX: E87.20 Acidosis, unspecified (principal); I50.9 Heart failure, unspecified; D72.829 Elevated white blood cell count, unspecified; J18.9 Pneumonia, unspecified organism; E87.5 Hyperkalemia | CPT/HCPCS: 99223; 99232; 99233; 99499 ==